=== PATIENT | female | born 1950 | race Caucasian/White ===

== ENCOUNTER → 2018-01-14 | Outpatient (CLI) | payer MEDICARE, OTHER ==
[~2018-01-14] MED LIST: ACHD5005 PO; AMIT50TA3 PO; AML5T PO; ARTHRITIS MED; ASCO100083 PO; ASPI81TA16 PO; ATEN100T88 PO; ATEN50TA; CALC-697 PO; CARV25TA PO; CEPH500C PO; CYCL10TA9 PO; DESO60OI10 TP; DIVA-20; EZET1TAB44 PO; FLT05NA16 NSEACH; GABA100T; GABA300T PO; GARLIC PO; HYDR50TA3 PO; Hydrocodone Bit/Acetaminophen PO; INSU100I16 SQ; INSU100I5 SQ; LOSA1TAB15; LOVA40TA2; LUTE1CAP4 PO; MELO-198 PO; METF-380 PO; METHO; METHOTREXATE PO; MULT-1029 PO; OMEG1CAP51 PO; POLY119P PO; RABE20TA PO; UBID1CAP51 PO; VITA1CAP59 PO; VITA400T9 PO
--- NOTE | 2018-01-14 12:14 | Diagnostic Imaging Report ---
PROCEDURE: MR imaging cervical spine without contrast. TECHNIQUE: Multiplanar, multisequence MR imaging of the cervical spine was performed without contrast. INDICATION: Chronic neck pain. COMPARISON: There are no prior studies available for comparison. FINDINGS: The reconstructed T2 sagittal images show slight reversal of the normal lordosis of the cervical spine. This may be secondary to muscle spasm and/or positioning. There is also desiccation of the disc at every level, and there is narrowing of the disc spaces at C4-5, C5-6, and C6-7 as well as C7-T1. At the C5-6 level, there is a broad-based disc bulge which compresses the ventral aspect of the thecal sac and narrows the AP diameter to approximately 6.3 mm. There is also narrowing of the neural foramen bilaterally at this level, particularly on the left. There is a disc bulge centrally at C4-5, and this results in narrowing of the AP diameter of the thecal sac to approximately 9.8 mm. There is neural foraminal narrowing at this level as well, particularly on the right. At the C6-7 level, there is also a broad-based disc bulge which results in narrowing of the AP diameter of the thecal sac to 9.6 mm. There is mild narrowing of the neural foramen bilaterally at this level. At C7-T1, there is a disc protrusion centrally which flattens the ventral aspect of the thecal sac and narrows the AP diameter to 9.6 mm. There is also narrowing of the neural foramen bilaterally at this level, and there may be encroachment of both exiting nerve roots, particularly left nerve root. At the C3-4 level, there is a disc bulge eccentric to the left. The AP diameter of the thecal sac is narrowed to 9.0 mm. There does not appear to be any significant neural foraminal narrowing at this level. The C2-3 level is unremarkable for spinal stenosis or nerve root encroachment. There is no abnormal signal arising from the cord or the vertebral bodies to indicate an acute abnormality. There is no sign of a paraspinal mass. IMPRESSION: 1. There is degenerative disc and bony disease throughout the cervical spine. The C5-6 level is the most severely affected as there is spinal stenosis and bilateral neural foraminal narrowing, particularly on the left. There is also borderline stenosis at C7-T1 with narrowing of the neural foramen bilaterally. There may also be encroachment of both exiting nerve roots at this level. 2. There is no sign of an acute bony abnormality or of a cord lesion. Dictated by: Dictated on workstation # [id number]
--- NOTE | 2018-01-14 12:25 | Diagnostic Imaging Report ---
PROCEDURE: MRI lumbar spine. TECHNIQUE: Multiplanar, multisequence MRI of the lumbar spine was performed without contrast. INDICATION: Chronic low back pain. FINDINGS: The previous MRI lumbar spine exam performed on 08/16/2015 noted degenerative disc, ligamentous, and bony disease at L3-4 and L4-5. On this exam, the central stenosis at the L3-4 level does not appear to have progressed significantly. The AP diameter still measures approximately 7.6 mm. However, there does seem to be somewhat greater narrowing of the neural foramen on the left at this level, and I am concerned that there is encroachment of the exiting left nerve root. The degenerative disc, ligamentous, and bony disease at the L4-5 level has also progressed. The AP diameter of the thecal sac is narrowed to 6.7 mm as opposed to 7.2 mm previously. There is also greater narrowing of the neural foramen on the right at this level, and there may well be encroachment of the exiting right nerve root at L4-5. The remainder of the lumbar spine has not changed significantly when compared to the prior study. There is no new area of spinal stenosis or nerve root encroachment identified. There is no abnormal signal arising from the cord or the vertebral bodies to indicate an acute abnormality. There is no sign of a paraspinal mass. IMPRESSION: 1. The degenerative disc, ligamentous, and bony disease at L3-4 and L4-5 has progressed somewhat since the prior exam, particularly at L4-5. There is greater central stenosis at the L4-5 level, and there is also greater narrowing of the neural foramen on the right at L4-5 and on the left at L3-4. 2. The remainder of the lumbar spine is similar in appearance to the prior study. 3. There is no abnormal signal arising from the cord or the vertebral bodies to suggest an acute abnormality. Dictated by: Dictated on workstation # [id number]
== END ==
LOC: RAD 10:02
PROVIDERS: ATTEND Nurse Practitioner Community Health
DX: M48.061 Spinal stenosis, lumbar region without neurogenic claudication (principal); M89.9 Disorder of bone, unspecified; M46.06 Spinal enthesopathy, lumbar region; M99.73 Connective tissue and disc stenosis of intervertebral foramina of lumbar region; M51.16 Intervertebral disc disorders with radiculopathy, lumbar region; M50.122 Cervical disc disorder at C5-C6 level with radiculopathy; M48.02 Spinal stenosis, cervical region; M99.71 Connective tissue and disc stenosis of intervertebral foramina of cervical region
CPT/HCPCS: 72141; 72148

== ENCOUNTER 2018-02-13 03:38 | Inpatient (IN) | payer MEDICARE, OTHER ==
[~2018-02-13] VITALS: Ht 160 cm; Wt 56.2 kg
[2018-02-13] MEDS ORDERED: LACTATED RINGERS 1,000 ML IV ONE (03:44)
--- OUTSIDE RECORDS SUMMARY | 2018-02-13 03:45 | XMS REPORT ---
Author Author NADIYA CARMONA Organization [facility] Address [address] [place] [address] Care Team Providers Care Tour Sales Representative Name Role Phone NADIYA CARMONA Unavailable PROBLEMS Type Condition ICD9-CM Code [id number] Code Onset Dates Condition Status SNOMED Code Problem Asthma J45.909 Active 055520240 Problem Reactive depression F32.9 Active 60000470 Problem Secondary hypertension I15.9 Active 06572805 Problem Open bite of left hand, initial encounter S61.452A Active 741665104 Problem Bitten by cat, initial encounter W55.01XA Active 703801351 Problem Moderate persistent asthma with exacerbation J45.41 Active 562107534 Problem Bronchitis J40 Active 49142559 Problem Simple chronic bronchitis J41.0 Active 09154028 Problem Recurrent major depressive disorder, in full remission F33.42 Active 082218724 Problem Renal failure N19 Active 10642787 Problem Joint pain of left hip on movement M25.552 Active 656408779 Problem Hypercholesterolemia E78.00 Active 85735607 Problem Environmental allergies Z91.09 Active 807783457 Problem PVD (peripheral vascular disease) I73.9 Active 577808578 Problem Diabetes mellitus E11.9 Active 08656375 Problem Proteinuria R80.9 Active 81590237 Problem Insomnia G47.00 Active 791639576 Problem Neuropathy G62.9 Active 868920387 Problem GERD (gastroesophageal reflux disease) K21.9 Active 849764891 ALLERGIES Substance Reaction Event Type Date Status Stadol Unknown Drug Allergy Dec, Active Glucotrol Unknown Drug Allergy Dec, Active ENCOUNTERS Encounter Location Date Diagnosis [facility] [id number] [address] Jan, [facility] [address] [facility] [id number] [address] Dec, [facility] [address] [address] Dec, Diabetes mellitus E11.9 ; Cervical neuritis M54.12 and Lumbar neuritis M54.16 [place] [address] [address]- [address] Dec, [place] [address] [address]- [address] Dec, Diabetes mellitus E11.9 [place] [address] 63206- 7794 Nov, Diabetes mellitus E11.9 [facility] [address] [address] Oct, Dermatitis due to plants, including poison chris, sumac, and oak L25.5 [place] [address] [address]195- 3961 Sep, Diabetes mellitus E11.9 and Medication management Z79.899 [place] [address] 28294- 5132 Sep, [place] [address] 7[address]- 4096 August, Neuropathy G62.9 [facility] [place] [address] [address] August, Open bite of left hand, initial encounter S61.452A ; Encounter for immunization Z23 and Bitten by cat, initial encounter W55.01XA [place] [address] [address]- 5550 Jul, Environmental allergies Z91.09 [place] [address] 74867- 8917 Jun, [place] [address] 57862- 4080 Jun, Simple chronic bronchitis J41.0 ; PVD (peripheral vascular disease) I73.9 and Recurrent major depressive disorder, in full remission F33.42 [facility] [address] [id number] 13 Jun, 2017 Dental examination Z01.20 [facility] [id number] [place] [address]137 [address]2271 Jun, Moderate persistent asthma with exacerbation J45.41 [facility] [id number] [place] [address] 88700- 6617 May, Neuropathy G62.9 and Diabetes mellitus E11.9 [facility] [address] [address]- 7710 Apr, [facility] [address] [address] Apr, Cough R05 [facility] [address] [address]- 7082 Feb, [facility] [address] 41035- 8380 Feb, [facility] [id number] [place] [address] 29799- 9412 Feb, Diabetes mellitus E11.9 ; Neuropathy G62.9 ; Joint pain of left hip on movement M25.552 and Encounter for immunization Z23 [facility] [id number] [place] [address] 46101- 9237 Feb, [facility] [address] 89789- 2651 Feb, Diabetes mellitus E11.9 [facility] [address] 91746- 2374 Feb, [facility] [address] 37573- 4713 Jan, [facility] [address] 63665- 6833 Jan, Secondary hypertension I15.9 [facility] [id number] [address] Dec, Diabetes mellitus E11.9 [facility] [address] [address] Nov, Encounter for dental examination Z01.20 [facility] [address], [place] [address] Oct, Allergic contact dermatitis due to plants, except food L23.7 [facility] [id number] [place] [address] 64429- 8134 Oct, [facility] [id number] [place] [address] 71721- 2502 Oct, Diabetes mellitus E11.9 ; PVD (peripheral vascular disease) I73.9 ; Neuropathy G62.9 ; GERD (gastroesophageal reflux disease) K21.9 ; Insomnia G47.00 ; Environmental allergies Z91.09 ; Secondary hypertension I15.9 ; Reactive depression F32.9 ; Hypercholesterolemia E78.00 and Joint pain of left hip on movement M25.552 [facility] [id number] [place] [address] 33745- 7334 Sep, Diabetes mellitus E11.9 [facility] [id number] [place] [address] 74204- 8389 Sep, Diabetes mellitus E11.9 [facility] [id number] [place] [address] 76871- 0143 Sep, Diabetes mellitus E11.9 [facility] [address] [place] [address] 08296- 3379 Sep, Neuropathy G62.9 [facility] [id number] [place] [address] 58120- 8576 August, [facility] [id number] [place] [address] 54024- 5435 Jul, [facility] [id number] [place] [address] 78609- 7755 Jun, [facility] [address] 72369- 1619 Jun, Diabetes mellitus E11.9 ; PVD (peripheral vascular disease) I73.9 ; Neuropathy G62.9 ; Joint pain of left hip on movement M25.552 ; Renal failure N19 ; Asthma J45.909 ; Reactive depression F32.9 ; Pure hypercholesterolemia, unspecified E78.00 and Insomnia G47.00 [place] [address] 87298- 6381 Jun, Joint pain of left hip on movement M25.552 and Diabetes mellitus E11.9 [place] [address] 13245- 4768 Jun, [facility] [address] [address] May, Cough R05 and Bronchitis J40 [place] [address] 52826- 9115 May, [place] [address] 76126- 2877 May, [place] [address] 03456- 9025 May, Asthma J45.909 and Bronchitis J40 [place] [address] 88186- 8060 07 May, 2016 [place] [address] 47767- 2718 May, Bronchitis J40 [facility] [address] 11417- 8344 06 May, 2016 [place] [address] 46711- 9273 Apr, Diabetes mellitus E11.9 ; PVD (peripheral vascular disease) I73.9 ; GERD (gastroesophageal reflux disease) K21.9 ; Asthma J45.909 ; Insomnia G47.00 ; Environmental allergies Z91.09 ; Secondary hypertension I15.9 ; Joint pain of left hip on movement M25.552 ; Hypercholesterolemia E78.0 and Reactive depression F32.9 [place] [address] 43555- 8107 Mar, Diabetes mellitus E11.9 ; PVD (peripheral vascular disease) I73.9 and Hypercholesterolemia E78.0 [place] [address] 27018- 9668 Mar, Diabetes mellitus E11.9 and Hypercholesterolemia E78.0 [place] [address] 41095- 2615 Mar, [place] [address] 56386- 9427 Feb, [place] [address] 29622- 3203 Feb, [place] [address] 30009- 2471 Feb, [place] [address] 74664- 8844 Jan, Encounter for immunization Z23 [place] [address] 17667- 6843 Jan, [place] [address] 39216- 5588 Dec, [place] [address] 68918- 5653 Dec, Diabetes mellitus E11.9 ; PVD (peripheral vascular disease) I73.9 ; GERD (gastroesophageal reflux disease) K21.9 ; Insomnia G47.00 ; Joint pain of left hip on movement M25.552 ; Asthma J45.909 ; Environmental allergies Z91.09 ; Hypercholesterolemia E78.0 ; Essential hypertension I10 and Neuropathy G62.9 [place] [address], [place] [address] Nov, [place] [id number] [place] [address] 92967- 9282 Nov, [facility] [id number] [place] [address] 25048- 4320 Oct, PVD (peripheral vascular disease) I73.9 and Diabetes mellitus E11.9 [place] [id number] [place] [address] 00189- 7574 Sep, Diabetes mellitus E11.9 ; PVD (peripheral vascular disease) I73.9 ; Neuropathy G62.9 ; Joint pain of left hip on movement M25.552 ; GERD ( gastroesophageal reflux disease) K21.9 ; Asthma J45.909 ; Insomnia G47.00 ; Secondary hypertension I15.9 and Hypercholesteremia E78.0 [place] [id number] [place] [address] 23282- 6478 August, [place] [id number] [place] [address] 13896- 8294 August, Neuropathy G62.9 [place] [id number] [place] [address] 05711- 3271 August, Neuropathy G62.9 [place] [id number] [place] [address] 76409- 6704 Jun, Diabetes mellitus E11.9 ; Joint pain of left hip on movement M25.552 ; PVD (peripheral vascular disease) I73.9 ; Neuropathy G62.9 ; GERD (gastroesophageal reflux disease) K21.9 ; Asthma J45.909 ; Insomnia G47.00 ; Environmental allergies Z91.09 ; HTN (hypertension) I10 and Hypercholesteremia E78.0 [place] [address] [place] [address] 64740- 0048 Jun, [place] [id number] [place] [address] 67971- 3709 Jun, [facility] [id number] [place] [address] 15311- 2216 Jun, [facility] [id number] [place] [address] 18893- 8207 Apr, [facility] [id number] [place] [address] 59428- 4385 Apr, [facility] [address] 76893- 8310 Apr, Sinusitis J32.9 [facility] [address] 16230- 1698 Apr, Neuropathy G62.9 [facility] [address] 21929- 8957 Mar, [facility] [address] 12241- 4257 Mar, [facility] [id number] [place] [address] 80464- 1186 Mar, Diabetes mellitus E11.9 ; PVD (peripheral vascular disease) I73.9 ; Neuropathy G62.9 ; GERD (gastroesophageal reflux disease) K21.9 ; Renal failure N19 ; Asthma J45.909 ; Insomnia G47.00 ; Environmental allergies Z91.09 ; Sinusitis J32.9 ; Cough R05 ; Edema R60.9 ; HTN (hypertension) I10 and Hypercholesterolemia E78.0 [facility] [id number] [place] [address] 83609 -6405 Mar, Dysuria R30.0 ; Vomiting, unspecified R11.10 ; Benign essential hypertension I10 and Dizziness R42 [facility] [id number] [place] [address] 70287- 8401 Mar, [facility] [address] 01724- 1795 Mar, [facility] [address] 52957- 9310 Feb, [facility] [address], [place] [address] 1940 Feb, [facility] [address] [place] [address] 85828- 3526 Feb, [facility] [address] [place] [address] 20185- 4618 Feb, [facility] [id number] [place] [address] 23340- 8658 Feb, Joint pain of left hip on movement M25.552 ; Lumbago M54.5 and UTI (urinary tract infection) N39.0 [facility] [address] [place] [address] 16865- 3011 Feb, [facility] [address] [place] [address] 63356- 6278 Feb, [facility] [address] [place] [address] 55036- 2688 Jan, [facility] [address] [place] [address] 27068- 8903 Jan, [facility] [address] [place] [address] 47710- 2975 Jan, [facility] [address], [place] [address]- 6431 Jan, [facility] [address] [place] [address] 43697- 4227 Jan, 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 [facility] [address] [place] [address] 68472- 2431 Dec, Hypertension 401.9 and Diabetes 250.00 [facility] [address], [place] [address] Dec, Diabetes 250.00 ; Influenza vaccine administered V04.81 ; Unspecified peripheral vascular disease 443.9 ; Issue of repeat prescriptions V68.1 ; Unspecified hereditary and idiopathic peripheral neuropathy 356.9 ; Insomnia, unspecified 780.52 ; Hypercholesteremia 272.0 ; Pain in joint, site unspecified 719.40 ; Dizziness 780.4 and PCV-13 (PREVNAR) DX V03.82 [facility] [id number] [place] [address] 26319- 7391 Dec, [facility] [address] 09855- 1647 Dec, [facility] [address] 86078- 0362 Dec, [facility] [address] 83211- 4168 Dec, [facility] [address] 67956- 0526 Dec, [facility] [address] 46666- 8095 Dec, [facility] [id number] [place] [address] 74273- 7095 Nov, [facility] [id number] [place] [address] 53788- 6113 Nov, Environmental allergies V15.09 ; Sacroiliitis, not elsewhere classified 720.2 and Cough 786.2 [facility] [id number] [place] [address] 17891- 8203 Oct, [facility] [id number] [place] [address] 38146- 3674 Oct, [facility] [address] 30340- 9775 Oct, [facility] [id number] [place] [address] 54867- 3391 Sep, [facility] [address] 17778- 4881 Sep, [facility] [id number], [place] [address]- 0156 Sep, Dysuria 788.1 and Diabetes with other specified manifestations, type II or unspecified type, not stated as uncontrolled 250.80 [facility] [address] [place] [address] 98538- 3545 Sep, [facility] [id number] [place] [address] 37192- 4971 Sep, Diabetes with other specified manifestations, type II or unspecified type, not stated as uncontrolled 250.80 [place] [id number] [place] [address] 98199- 9133 Sep, DM w/o complication type II 250.00 ; Unspecified peripheral vascular disease 443.9 ; Pain in joint, pelvic region and thigh 719.45 ; Asthma , unspecified, unspecified status 493.90 ; Hypercholesteremia 272.0 ; Fatigue 780.79 ; UTI (lower urinary tract infection) 599.0 and Essential hypertension 401.9 [place] [address] [place] [address] 51075- 7482 Sep, [facility] [id number] [place] [address] 24007- 6361 Sep, [facility] [address] [place] [address] 44845- 3744 Sep, [facility] [address] [place] [address] 76683- 7927 August, [facility] [address] [place] [address] 63329- 6357 August, [facility] [id number] [place] [address] 22740- 8156 August, Diabetes with other specified manifestations, type II or unspecified type, not stated as uncontrolled 250.80 [facility] [address] [place] [address] 24042- 5199 28 Apr, 2015 Peripheral vascular disease 443.9 [facility] [place] [facility] [address] [id number] [place] [address]- 3517 14 Jul, 2014 [facility] [place] [facility] [address] [id number] [place] [address]- 0784 Jul, [facility] [place] [facility] [address] [id number] [place] [address]- 7801 27 Jun, 2014 [facility] [place] [facility] [address] [id number] [place] [address]- 3237 27 Jun, 2014 [facility] [place] [facility] [address] [id number] [place] [address]- 2132 14 Jun, 2014 [facility] [place] [facility] [address] [id number] [place] [address]- 3619 Jun, [facility] [place] [facility] [address] [id number] [place] [address]- 8672 Jun, [facility] [place] [facility] [address] [id number] [place] [address]- 4444 Jun, [facility] [place] [facility] [address] [id number] [place] [address]- 8393 Jun, [facility] [place] [facility] [address] [id number] [place] [address]- 8091 Jun, [facility] [place] [facility] [address] [id number] [place] [address]- 4447 Jun, [facility] [place] [facility] [address] [id number] [place] [address]- 5804 May, [facility] [place] [facility] [address] [id number] [place] [address]- 0106 May, [facility] [place] [facility] [address] [id number] [place] [address]- 1175 24 May, 2014 [facility] [place] [facility] [address] [id number] [place] [address]- 2817 May, [facility] [place] [facility] [address] [id number] [place] [address]- 8095 18 May, 2014 [facility] [place] [facility] [address] [id number] [place] [address]- 2226 May, 2014 [facility] [place] [facility] [address] [id number] [place] [address]- 8666 17 May, 2014 [facility] [place] [facility] [address] [id number] [place] [address]- 1364 May, 2014 [facility] [place] [facility] [address] [id number] [place] [address]- 9427 May, 2014 [facility] [place] [facility] [address] [id number] [place] [address]- 7389 May, 2014 [facility] [place] [facility] [address] [facility] [id number] [place] [address]- 4332 May, 2014 [facility] [place] [facility] [address] [id number] [place] [address]- 5359 May, 2014 [facility] [place] [facility] [address] [id number] [place] [address]- 0738 May, [facility] [place] [facility] [address] [facility] [id number] [place] [address]- 2784 Apr, [facility] [place] [facility] [address] [id number] [place] [address]- 6456 Apr, [facility] [place] [facility] [address] [id number] [place] [address]- 2542 Apr, [facility] [place] [facility] [address] [id number] [place] [address]- 5713 Apr, [facility] [place] [facility] [address] [id number] [place] [address]- 6649 Apr, [facility] [place] [facility] [address] [id number] [place] [address]- 4469 Apr, [facility] [place] [facility] [address] [id number] [place] [address]- 7183 Apr, [facility] [place] [facility] [address] [id number] [place] [address]- 7308 Apr, [facility] [place] [facility] [address] [id number] [place] [address]- 6769 Mar, [facility] [place] [facility] [address] [id number] [place] [address]- 5130 Mar, [facility] [place] [facility] [address] [id number] [place] [address]- 9162 Mar, [facility] [place] [facility] [address] [id number] [place] [address]- 0164 Mar, [facility] [place] [facility] [address] [id number] [place] [address]- 2891 Mar, [facility] [place] [facility] [address] [id number] [place] [address]- 2841 Mar, [facility] [place] [facility] [address] [id number] [place] [address]- 4613 Mar, [facility] [place] [facility] [address] [id number] [place] [address] Mar, [facility] [place] [facility] [address] [id number] [place] [address] Mar, [facility] [place] [facility] [address] [id number] [place] [address] Mar, [facility] [place] [facility] [address] [id number] [place] [address] Mar, [facility] [place] [facility] [address] [id number] [place] [address]- [address] Mar, [facility] [place] [facility] [address] [id number] [place] [address] Mar, [facility] [place] [facility] [address] [id number] [place] [address]- [address] Mar, [facility] [place] [facility] [address] [id number] [place] [address] Feb, [facility] [place] [facility] [address] [id number] [place] [address] Feb, [facility] [place] [facility] [address] [id number] [place] [address]- [address] Feb, [facility] [place] [facility] [address] [id number] [place] [address]- [address] Feb, [facility] [place] [facility] [address] [id number] [place] [address] Feb, [facility] [place] [facility] [address] [id number] [place] [address]- [address] Feb, [facility] [place] [facility] [address] [id number] [place] [address]- [address] Feb, [facility] [place] [facility] [address] [id number] [place] [address]- [address] Feb, [facility] [place] [facility] [address] [id number] [place] [address]- [address] Feb, [facility] [place] [facility] [address] [id number] [place] [address]- [address] Feb, [facility] [place] [facility] [address] [id number] [place] [address]- [address] Feb, [facility] [place] [facility] [address] [id number] [place] [address]- [address] Feb, [facility] [place] [facility] [address] [id number] [place] [address]- [address] Feb, [facility] [place] [facility] [address] [id number] [place] [address] Feb, [facility] [place] [facility] [address] [id number] [place] [address]- [address] Feb, [facility] [place] [facility] [address] [id number] [place] [address]- [address] Feb, [facility] [place] [facility] [address] [id number] [place] [address]- [address] Jan, [facility] [place] [facility] [address] [id number] [place] [address]- [address] Jan, [facility] [place] [facility] [address] [id number] [place] [address]- [address] Jan, [facility] [place] [facility] [address] [id number] [place] [address]- [address] Jan, [facility] [place] [facility] [address] [id number] [place] [address]- [address] Jan, [facility] [place] [facility] [address] [id number] [place] [address]- [address] Jan, [facility] [place] [facility] [address] [id number] [place] [address] Jan, [facility] [place] [facility] [address] [id number] [place] [address]- [address] Jan, [facility] [place] [facility] [address] [id number] [place] [address]- [address] Dec, [facility] [place] [facility] [address] [id number] [place] [address] Dec, [facility] [place] [facility] [address] [id number] [place] [address] 3299 Nov, [facility] [place] [facility] [address] [id number] [place] [address] 0218 Nov, [facility] [place] [facility] [address] [id number] [place] [address] 0259 Nov, [facility] [place] [facility] [address] [id number] [place] [address] 2401 Nov, [facility] [place] [facility] [address] [id number] [place] [address] Nov, [facility] [place] [facility] [address] [id number] [place] [address] 8348 Nov, [facility] [place] [facility] [address] [id number] [place] [address] 7670 Oct, [facility] [place] [facility] [address] [id number] [place] [address] Oct, [facility] [place] [facility] [address] [id number] [place] [address]- 6314 Oct, [facility] [place] [facility] [address] [id number] [place] [address] 8939 Oct, [facility] [place] [facility] [address] [id number] [place] [address]- 9261 Sep, [facility] [place] [facility] [address] [id number] [place] [address]- 5016 Sep, [facility] [place] [facility] [address] [id number] [place] [address]- 0050 Sep, [facility] [place] [facility] [address] [id number] [place] [address]- 7999 Sep, [facility] [place] [facility] [address] [id number] [place] [address]- 7168 Sep, [facility] [place] [facility] [address] [id number] [place] [address]- 5756 Sep, [facility] [place] [facility] [address] [id number] [place] [address]- 6317 August, [facility] [place] [facility] [address] [id number] [place] [address]- 2526 August, [facility] [place] [facility] [address] [id number] [place] [address]- 7908 August, [facility] [place] [facility] [address] [id number] [place] [address]- 0056 August, [facility] [place] [facility] [address] [id number] [place] [address]- 0817 August, [facility] [place] [facility] [address] [id number] [place] [address] 1737 August, [facility] [address] [id number] [place] [address]- 6526 August, [facility] [place] [facility] [address] [id number] [place] [address]- 4828 August, [facility] [address] [id number] [place] [address]- 2104 August, [facility] [place] [facility] [address] [id number] [place] [address] 8098 August, [facility] [place] [facility] [address] [id number] [place] [address]- 3603 August, [facility] [place] [facility] [address] [id number] [place] [address]- 8298 August, [facility] [place] [facility] [address] [id number] [place] [address]- 2147 Jul, [facility] [address] [id number] [place] [address]- 1337 Jul, [facility] [place] [facility] [address] [id number] [place] [address]- 6582 Jul, [facility] [place] [facility] [address] [id number] [place] [address]- 8480 Jul, [facility] [place] [facility] [address] [id number] [place] [address]- 6694 Jul, [facility] [place] [facility] [address] [id number] [place] [address]- 7625 Jul, [facility] [place] [facility] [address] [id number] [place] [address]- 7683 Jul, [facility] [place] [facility] [address] [id number] [place] [address] Jul, [facility] [place] [facility] [address] [id number] [place] [address]- 5447 Jul, [facility] [place] [facility] [address] [id number] [place] [address]- 4550 Jul, [facility] [place] [facility] [address] [id number] [place] [address]- 3883 Jul, [facility] [place] [facility] [address] [id number] [place] [address]- 6886 Jun, [facility] [place] [facility] [address] [id number] [place] [address]- 0389 Jun, [facility] [place] [facility] [address] [id number] [place] [address]- 5014 Jun, [facility] [place] [facility] [address] [id number] [place] [address]- 6635 Jun, [facility] [place] [facility] [address] [id number] [place] [address]- 6818 Jun, [facility] [place] [facility] [address] [id number] [place] [address]- 6606 Jun, [facility] [place] [facility] [address] [id number] [place] [address]- 6075 Jun, [facility] [place] [facility] [address] [id number] [place] [address]- 5461 Jun, [facility] [place] [facility] [address] [id number] [place] [address]- 0129 Jun, [facility] [place] [facility] [address] [id number] [place] [address]- 7508 May, [facility] [place] [facility] [address] [id number] [place] [address]- 6875 May, [facility] [place] [facility] [address] [id number] [place] [address]- 8448 May, [facility] [place] [facility] [address] [id number] [place] [address]- 7326 Apr, [facility] [place] [facility] [address] [id number] [place] [address]- 4347 Apr, [facility] [place] [facility] [address] [id number] [place] [address]- 4408 Apr, [facility] [place] [facility] [address] [id number] [place] [address]- 5395 Apr, [facility] [place] [facility] [address] [id number] [place] [address]- 8396 Apr, [facility] [place] [facility] [address] [id number] [place] [address]- 4018 Apr, [facility] [place] [facility] [address] [id number] [place] [address]- 7666 Apr, [facility] [place] [facility] [address] [id number] [place] [address]- 9834 Apr, [facility] [place] [facility] [address] [id number] [place] [address]- 1557 Mar, [facility] [place] [facility] [address] [id number] [place] [address]- 6671 Mar, [facility] [place] [facility] [address] [id number] [place] [address]- 4319 Feb, [facility] [place] [facility] [address] [facility] [id number] [place] [address]- 1532 Feb, [facility] [place] [facility] [address] [id number] [place] [address]- 7372 Jan, [facility] [place] [facility] [address] [id number] [place] [address]- 7223 31 Jan, 2013 [facility] [place] [facility] [address] [id number] [place] [address]- 2911 Jan, [facility] [place] [facility] [address] [id number] [place] [address]- 5287 Jan, [facility] [place] [facility] [address] [id number] [place] [address]- 9246 24 Jan, 2013 [facility] [place] [facility] [address] [id number] [place] [address]- 5006 24 Jan, 2012 [facility] [place] [facility] [address] [id number] [place] [address]- 7839 Jan, 2012 [facility] [place] [facility] [address] [id number] [place] [address]- 4944 Jan, 2012 [facility] [place] [facility] [address] [id number] [place] [address]- 0124 17 Jan, 2012 [facility] [place] [facility] [address] [id number] [place] [address]- 8313 17 Jan, 2012 [facility] [place] [facility] [address] [id number] [place] [address]- 0454 14 Jan, 2012 [facility] [place] [facility] [address] [id number] [place] [address]- 8252 14 Jan, 2012 [facility] [place] [facility] [address] [id number] [place] [address]- 2933 10 Jan, 2012 [facility] [place] [facility] [address] [id number] [place] [address]- 2752 10 Jan, 2012 [facility] [place] [facility] [address] [id number] [place] [address]- 9781 10 Jan, 2012 [facility] [place] [facility] [address] [id number] [place] [address]- 3238 10 Jan, 2012 [facility] [place] [facility] [address] [id number], [place] [address]- 6769 09 Jan, 2012 [facility] [place] [facility] [address] [id number] [place] [address]- 3213 09 Jan, 2012 [facility] [place] [facility] [address] [id number] [place] [address]- 3449 08 Jan, 2012 [facility] [place] [facility] [address] [id number], [place] [address]- 0[address] 07 Jan, 2012 [facility] [place] [facility] [address] [id number], [place] [address]- 9836 Jan, [facility] [place] [facility] [address] [id number] [place] [address]- 5427 Jan, [facility] [place] [facility] [address] [id number] [place] [address]- 9685 Jan, [facility] [place] [facility] [address] [id number] [place] [address]- 6066 Dec, [facility] [place] [facility] [address] [id number] [place] [address]- 0030 16 Dec, 2012 [facility] [place] [facility] [address] [id number] [place] [address]- 0541 Nov, [facility] [place] [facility] [address] [id number] [place] [address]- 5623 Oct, [facility] [place] [facility] [address] [id number] [place] [address]- 5179 Oct, [facility] [place] [facility] [address] [id number] [place] [address]- 7734 Oct, [facility] [place] [facility] [address] [id number] [place] [address]- 8002 Oct, [facility] [place] [facility] [address] [id number] [place] [address]- 2066 Oct, [facility] [place] [facility] [address] [id number] [place] [address]- 7869 Oct, [facility] [place] [facility] [address] [id number] [place] [address]- 4877 Sep, [facility] [place] [facility] [address] [id number] [place] [address]- 0444 Sep, [facility] [place] [facility] [address] [id number] [place] [address]139 Sep, [facility] [place] [facility] [address] [id number] [place] [address]- 9056 Jul, [facility] [place] [facility] [address] [id number] [place] [address]- 3296 Jul, [facility] [address] [id number] [place] [address]- 1699 Jul, [facility] [address] [id number] [place] [address]- 2926 Jun, [facility] [address] [id number] [place] [address]- 2326 Jun, [facility] [address] [id number] [place] [address]- 5775 Jun, [facility] [address] [id number] [place] [address]- 7458 Jun, [facility] [address] [id number] [place] [address]- 1356 Jun, [facility] [address] [id number] [place] [address]- 1400 Jun, [facility] [address] [id number] [place] [address]- 9668 May, [facility] [address] [id number] [place] [address]- 7106 May, [facility] [address] [id number] [place] [address]- 5002 Apr, [facility] [address] [id number] [place] [address]- 4238 Apr, [facility] [address] [id number] [place] [address]- 5295 Apr, [facility] [address] [id number] [place] [address]- 5496 Apr, [facility] [address] [id number] [place] [address]- 2546 Apr, [facility] [address] [id number] [place] [address]- 2496 31 Mar, 2012 [facility] [place] [facility] [address] [id number] [place] [address]- 8985 31 Mar, 2012 [facility] [place] [facility] [address] [id number] [place] [address]- 8108 Mar, [facility] [place] [facility] [address] [id number] [place] [address]- 1343 Mar, [facility] [place] [facility] [address] [id number] [place] [address]- 9957 14 Mar, 2012 [facility] [place] [facility] [address] [id number] [place] [address]- 9611 14 Mar, 2012 [facility] [place] [facility] [address] [id number] [place] [address]- 2372 Mar, [facility] [place] [facility] [address] [id number] [place] [address]- 1513 Mar, [facility] [place] [facility] [address] [id number] [place] [address]- 2464 05 Mar, 2012 [facility] [place] [facility] [address] [id number] [place] [address]- 2935 05 Mar, 2012 [facility] [place] [facility] [address] [id number] [place] [address]- 5458 30 Feb, 2012 [facility] [place] [facility] [address] [id number] [place] [address]- 1839 30 Feb, 2012 [facility] [place] [facility] [address] [id number], [place] [address]- 6883 Feb, [facility] [place] [facility] [address] [id number] [place] [address]- 4496 Feb, [facility] [place] [facility] [address] [id number] [place] [address]- 6195 Feb, [facility] [place] [facility] [address] [id number] [place] [address]- 6217 Feb, [facility] [place] [facility] [address] [id number] [place] [address]- 4388 Feb, [facility] [place] [facility] [address] [id number] [place] [address]- 9463 Feb, [facility] [place] [facility] [address] [id number] [place] [address]- 8556 Feb, [facility] [place] [facility] [address] [facility] [id number] [place] [address]- 4823 Feb, [facility] [place] [facility] [address] [id number] [place] [address]- 7132 Jan, [facility] [place] [facility] [address] [id number] [place] [address]- 7326 Jan, [facility] [place] [facility] [address] [id number] [place] [address]- 2301 Jan, [facility] [place] [facility] [address] [facility] [id number] [place] [address]- 2261 Jan, [facility] [place] [facility] [address] [id number] [place] [address]- 3506 28 Sep, 2011 [facility] [place] [facility] [address] [id number] [place] [address]- 7819 25 Sep2011 [facility] [place] [facility] [address] [facility] [id number] [place] [address]- 7922 18 Sep2011 [facility] [place] [facility] [address] [id number] [place] [address]- 8836 18 Sep, 2011 [facility] [place] [facility] [address] [id number], [place] [address]- 2541 17 Sep, 2011 [facility] [place] [facility] [address] [id number] [place] [address]- 5308 14 Sep, 2011 [facility] [place] [facility] [address] [facility] [id number] [place] [address]- 2546 13 Sep, 2011 [facility] [place] [facility] [address] [id number], [place] [address]- 3203 13 Dec, 2011 [facility] [place] [facility] [address] [id number] [place] [address]- 0111 Dec, [facility] [place] [facility] [address] [id number] [place] [address]- 6886 Nov, [facility] [place] [facility] [address] [id number] [place] [address]- 7732 Nov, [facility] [place] [facility] [address] [id number] [place] [address]- 1079 Nov, [facility] [place] [facility] [address] [id number] [place] [address]- 9908 Nov, [facility] [place] [facility] [address] [id number] [place] [address]- 8017 Sep, [facility] [place] [facility] [address] [id number] [place] [address]- 4982 Sep, [facility] [place] [facility] [address] [id number] [place] [address]- 0857 Sep, [facility] [place] [facility] [address] [id number] [place] [address]- 8696 August, [facility] [place] [facility] [address] [id number] [place] [address]- 6419 August, [facility] [place] [facility] [address] [id number] [place] [address]- 4142 August, [facility] [place] [facility] [address] [id number] [place] [address]- 3607 August, [facility] [place] [facility] [address] [id number] [place] [address]- 3185 August, [facility] [place] [facility] [address] [id number] [place] [address]- 8978 August, [facility] [place] [facility] [address] [id number] [place] [address]- 1420 August, [facility] [place] [facility] [address] [id number] [place] [address]- 9826 August, [facility] [place] [facility] [address] [id number] [place] [address]- 9206 August, [facility] [place] [facility] [address] [id number] [place] [address]- 4672 Jul, [facility] [place] [facility] [address] [id number] [place] [address]- 1714 Jun, [facility] [place] [facility] [address] [id number] [place] [address]- 6227 16 Jun, 2011 [facility] [place] [facility] [address] [id number] [place] [address]- 4499 Jun, [facility] [place] [facility] [address] [facility] [id number] [place] [address]- 5926 Jun, [facility] [place] [facility] [address] [id number] [place] [address]- 2940 Jun, [facility] [place] [facility] [address] [id number] [place] [address]- 6310 Jun, [facility] [place] [facility] [address] [id number] [place] [address]- 2827 Jun, [facility] [place] [facility] [address] [facility] [id number] [place] [address]- 1513 Jun, [facility] [place] [facility] [address] [id number] [place] [address]- 2409 May, [facility] [place] [facility] [address] [id number] [place] [address]- 3275 May, [facility] [place] [facility] [address] [id number] [place] [address]- 6800 May, [facility] [place] [facility] [address] [id number] [place] [address]- 8933 May, [facility] [place] [facility] [address] [id number] [place] [address] May, [facility] [place] [facility] [address] [id number] [place] [address] 16 May, 2011 [facility] [place] [facility] [address] [id number] [place] [address]65 14 May, 2011 [facility] [place] [facility] [address] [id number] [place] [address] 19 Apr, 2011 [facility] [place] [facility] [address] [id number] [place] [address] 16 Apr, 2011 [facility] [place] [facility] [address] [id number] [place] [address] 13 Apr, 2011 [facility] [place] [facility] [address] [id number] [place] [address] Apr, [facility] [place] [facility] [address] [id number] [place] [address] Apr, [facility] [address] [id number] [place] [address] Apr, [facility] [place] [facility] [address] [id number] [place] [address] Apr, [facility] [address] [id number] [place] [address] Apr, [facility] [place] [facility] [address] [id number] [place] [address] 29 Mar, 2011 [facility] [address] [id number] [place] [address]682 Mar, [facility] [place] [facility] [address] [id number] [place] [address]246 28 Feb, 2011 [facility] [place] [facility] [address] [id number] [place] [address] Feb, [facility] [place] [facility] [address] [id number] [place] [address]671 17 Feb, 2011 [facility] [place] [facility] [address] [id number] [place] [address] 16 Feb, 2011 [facility] [place] [facility] [address] [id number] [place] [address] 16 Feb, 2011 [facility] [place] [facility] [address] [id number] [place] [address]47 24 Jan, 2011 [facility] [place] [facility] [address] [id number] [place] [address] 12 Nov, 2010 [facility] [place] [facility] [address] [id number] [place] [address] 14 Sep, 2010 [facility] [place] [facility] [address] [id number] [place] [address] August, [facility] [place] [facility] [address] [id number] [place] [address] Jun, [facility] [place] [facility] [address] [id number] [place] [address] 14 May, 2010 [facility] [place] [facility] [address] [id number] [place] [address] Apr, [facility] [place] [facility] [address] [id number] [place] [address] 2728 22 Mar, 2010 [facility] [place] [facility] [address] [id number] [place] [address] 5694 14 Mar, 2010 [facility] [place] [facility] [address] [id number] [place] [address] 14 Mar, 2010 [facility] [place] [facility] [address] [id number] [place] [address]88 12 Feb, 2010 [facility] [place] [facility] [address] [id number] [place] Feb, [facility] [place] [facility] [address] [id number] [place] [address] 12 Jan, 2010 [facility] [place] [facility] [address] [id number] [place] [address]661 11 Jan, 2010 [facility] [place] [facility] [address] [id number] [address] 11 Jan, 2010 [facility] [address] [id number] [address] Oct, [facility] [id number] [place] [address] Oct, [facility] [address] [id number], [place] [address] Apr, [facility] [id number], [place] [address] Mar, [facility] [id number] [address] Mar, [facility] [id number] [place] [address] Jan, [facility] [id number], [place] [address] Dec, IMMUNIZATIONS No Known Immunizations SOCIAL HISTORY Never Assessed REASON FOR VISIT Diabetes -Pepper DAN PLAN OF CARE VITAL SIGNS Height 63 in 2018-01-09 Weight 133 lbs 2018-01-09 Temperature 98.6 degrees Fahrenheit 2018-01-09 Heart Rate 69 bpm 2018-01-09 Respiratory Rate 20 2018-01-09 Oximetry 97 % 2018-01-09 BMI 23.56 kg/m2 2018-01-09 Blood pressure systolic 138 mmHg 2018-01-09 Blood pressure diastolic 80 mmHg 2018-01-09 MEDICATIONS Medication Instructions Dosage Frequency Start Date End Date Duration Status Symbicort 160-4.5 MCG/ACT Inhalation Twice a day 2 puffs 12h 14 Jun, 2017 Active Metformin HCl 1000 MG Orally Twice a day 1 tablet with meals 12h Feb, Active Amitriptyline HCl 150 MG Orally Once a day 1 tablet 24h Feb, Active Celexa 20 mg Orally Once a day 1 tablet 24h Active Percocet 5-325 MG Orally every 6 hrs prn 1 tablet as needed Nov, 28 days Active Vytorin 10-40 MG Orally Once a day 1 tablet 24h Active Mucinex 600 MG Orally every 12 hrs 1 tablet as needed 12h 10 May, 2016 Active Albuterol Sulfate 90 mcg/actuation 2 puffs by Inhalation route every 4-6 hours as neededPRNcough or wheezing August, Active Levemir FlexTouch 100 UNIT/ML INJECT 25 UNITS SUBCUTANEOUSLY TWICE DAILY IN THE MORNING AND IN THE EVENING 30 Active Diclofenac Sodium 50MG DR Orally Three times a day 1 tablet 8h Active Amlodipine Besylate 5MG TAKE ONE TABLET BY MOUTH TWICE DAILY Active Levemir Flexpen 100 UNIT/ML Subcutaneous 2 times a day Inject 25 units in AM and PM 12h Active Atenolol 100MG 1 tablet 24h Active ProAir HFA 108 (90 Base) MCG/ACT Inhalation every 4 hrs 2 puffs as needed for cough, wheeze or SOB 4h 07 May, 2016 30 days Active Gabapentin 300MG Orally 3 times a day 1 capsule by Oral route 3 times per day 8h Active Flonase 50 MCG/ACT Nasally Once a day 1 spray in each nostril 24h Feb, Active Pen [place] 32G X 4 MM subcutaneously 2 times a day use to Inject insulin 12h Feb, 90 days Active Hydrochlorothiazide 50MG 1 tablet 24h Active RESULTS Name Result Date Reference Range A1C (IN HOUSE) 2018-01-09 A1C IN HOUSE 6.0 4.3 - 5.6 % Previous A1c 5.6 Lot [id number] Exp date 06/2019 PROCEDURES Procedure Date Ordered Result Body Site GLYCATED HEMOGLOBIN TEST Jan 09, 2018 [facility] VISIT ESTABLISHED PATIENT Jan 09, 2018 INSTRUCTIONS MEDICATIONS ADMINISTERED No Known Medications MEDICAL (GENERAL) HISTORY Type Description Date Medical History Hypertension Medical History Frequent URIs Medical History Arthritis Medical History Migraines Medical History Chronic Hip pain Medical History Psoriasis Medical History Allergies-receives allergy injections (pt does her own) Medical History type II diabetes Medical History Sacroiliitis, not elsewhere classified Medical History Hypercholesterolemia Surgical History Tubal Ligation Surgical History Tonsillectomy Surgical History Appendectomy Surgical History Hysterectomy Surgical History Left Ankle surgery-Dr Burnham 08/07/2013 Surgical History Right arm surgery 05/03/2014 Surgical History Left carpal tunnel bilat 05/31/2014 Surgical History bilateral cataract surgeries 2015 Hospitalization History surgeries
--- OUTSIDE RECORDS SUMMARY | 2018-02-13 03:45 | XMS REPORT ---
Author Author NADIYA CARMONA Organization [facility] Address [address] [place] [address] Care Team Providers Care Hull Inspector Name Role Phone NADIYA CARMONA Unavailable PROBLEMS Type Condition ICD9-CM Code OYG82-DN Code Onset Dates Condition Status SNOMED Code Problem Asthma J45.909 Active 509209790 Problem Reactive depression F32.9 Active 14730678 Problem Secondary hypertension I15.9 Active 41033071 Problem Open bite of left hand, initial encounter S61.452A Active 392159637 Problem Bitten by cat, initial encounter W55.01XA Active 879784379 Problem Moderate persistent asthma with exacerbation J45.41 Active 329651873 Problem Bronchitis J40 Active 44783742 Problem Simple chronic bronchitis J41.0 Active 80422031 Problem Recurrent major depressive disorder, in full remission F33.42 Active 102635795 Problem Renal failure N19 Active 84658463 Problem Joint pain of left hip on movement M25.552 Active 320270915 Problem Hypercholesterolemia E78.00 Active 46731174 Problem Environmental allergies Z91.09 Active 573240973 Problem PVD (peripheral vascular disease) I73.9 Active 890032732 Problem Diabetes mellitus E11.9 Active 60302195 Problem Proteinuria R80.9 Active 58340692 Problem Insomnia G47.00 Active 030748024 Problem Neuropathy G62.9 Active 323021927 Problem GERD (gastroesophageal reflux disease) K21.9 Active 175096094 ALLERGIES No Information ENCOUNTERS Encounter Location Date Diagnosis [facility] [address] [facility] [id number] [address] Jan, [facility] [address], [place] [address] Dec, [facility] [address] [id number] [address] Dec, Diabetes mellitus E11.9 ; Cervical neuritis M54.12 and Lumbar neuritis M54.16 [place] [address] [address]- [address] Dec, [place] [address] [address]- 0812 Dec, Diabetes mellitus E11.9 [place] [address] [address]40- 9734 Nov, Diabetes mellitus E11.9 [facility] [address] [address] Oct, Dermatitis due to plants, including poison chris, sumac, and oak L25.5 [place] [address] 88743- 1316 Sep, Diabetes mellitus E11.9 and Medication management Z79.[address] [address]- [address] Sep, [place] [address] [address]- 2781 August, Neuropathy G62.9 [facility] [address] [address] August, Open bite of left hand, initial encounter S61.452A ; Encounter for immunization Z23 and Bitten by cat, initial encounter W55.01XA [address] [address]- [address]16 Jul, Environmental allergies Z91.09 [place] [address] [address]- [address]551 Jun, [address] 6[address]47- 2164 Jun, Simple chronic bronchitis J41.0 ; PVD (peripheral vascular disease) I73.9 and Recurrent major depressive disorder, in full remission F33.42 [facility] [address] [id number] 13 Jun, 2017 Dental examination Z01.20 [facility] [id number] [place] [address]44 -1453 04 Jun, 2017 Moderate persistent asthma with exacerbation J45.41 [facility] [id number] [place] [address] 18704- 8479 May, Neuropathy G62.9 and Diabetes mellitus E11.9 [facility] [id number] [place] [address] 71500- 1149 Apr, [facility] [address] [address] Apr, Cough R05 [facility] [id number] [place] [address] 81112- 2637 Feb, [place] [address] 31893- 1411 Feb, [facility] [id number] [place] [address] 00327- 5631 Feb, Diabetes mellitus E11.9 ; Neuropathy G62.9 ; Joint pain of left hip on movement M25.552 and Encounter for immunization Z23 [facility] [id number] [place] [address] 29122- 6486 Feb, [place] [id number] [place] [address] 10491- 8620 Feb, Diabetes mellitus E11.9 [place] [id number] [place] [address] 01357- 0063 Feb, [place] [address] 85046- 2515 Jan, [place] [id number] [place] [address] 62204- 1167 Jan, Secondary hypertension I15.9 [facility] [address] 79200- 2909 Dec, Diabetes mellitus E11.9 [facility] [id number] [place] [address] [id number] Nov, Encounter for dental examination Z01.20 [facility] [id number] [place] [address] 00392 -9614 Oct, Allergic contact dermatitis due to plants, except food L23.7 [facility] [address] 89656- 3091 Oct, [facility] [id number] [place] [address] 07334- 5159 Oct, Diabetes mellitus E11.9 ; PVD (peripheral vascular disease) I73.9 ; Neuropathy G62.9 ; GERD (gastroesophageal reflux disease) K21.9 ; Insomnia G47.00 ; Environmental allergies Z91.09 ; Secondary hypertension I15.9 ; Reactive depression F32.9 ; Hypercholesterolemia E78.00 and Joint pain of left hip on movement M25.552 [facility] [id number] [place] [address] 84047- 2283 Sep, Diabetes mellitus E11.9 [facility] [id number] [place] [address] 28941- 7519 Sep, Diabetes mellitus E11.9 [facility] [id number] [place] [address] 49628- 9715 Sep, Diabetes mellitus E11.9 [facility] [id number] [place] [address] 48766- 6708 Sep, Neuropathy G62.9 [facility] [id number] [place] [address] 79004- 6230 August, [facility] [id number] [place] [address] 22193- 4732 Jul, [facility] [id number] [place] [address] 94550- 7830 Jun, [facility] [address] 80885- 6558 Jun, Diabetes mellitus E11.9 ; PVD (peripheral vascular disease) I73.9 ; Neuropathy G62.9 ; Joint pain of left hip on movement M25.552 ; Renal failure N19 ; Asthma J45.909 ; Reactive depression F32.9 ; Pure hypercholesterolemia, unspecified E78.00 and Insomnia G47.00 [place] [address] 88297- 0474 Jun, Joint pain of left hip on movement M25.552 and Diabetes mellitus E11.9 [place] [address] 83077- 4867 Jun, [facility] [address] 61011 -3561 May, Cough R05 and Bronchitis J40 [place] [address] 16572- 2553 May, [facility] [address] 52054- 1609 May, [place] [address] 60384- 5792 May, Asthma J45.909 and Bronchitis J40 [place] [address] 98596- 3291 May, [place] [address] 13668- 1757 May, Bronchitis J40 [facility] [address] 62405- 1334 May, [place] [address] 47876- 1045 Apr, Diabetes mellitus E11.9 ; PVD (peripheral vascular disease) I73.9 ; GERD (gastroesophageal reflux disease) K21.9 ; Asthma J45.909 ; Insomnia G47.00 ; Environmental allergies Z91.09 ; Secondary hypertension I15.9 ; Joint pain of left hip on movement M25.552 ; Hypercholesterolemia E78.0 and Reactive depression F32.9 [place] [address] 45691- 5555 Mar, Diabetes mellitus E11.9 ; PVD (peripheral vascular disease) I73.9 and Hypercholesterolemia E78.0 [place] [address] 20090- 0699 Mar, Diabetes mellitus E11.9 and Hypercholesterolemia E78.0 [place] [address] 78932- 7711 Mar, [place] [address] 74838- 7155 Feb, [place] [address] 10870- 5465 Feb, [place] [address] 31384- 3362 Feb, [place] [address] 15767- 7292 Jan, Encounter for immunization Z23 [place] [address] 83908- 4600 Jan, [place] [address] 52980- 1774 07 Dec, 2015 [place] [address] 84944- 7658 06 Dec, 2015 Diabetes mellitus E11.9 ; PVD (peripheral vascular disease) I73.9 ; GERD (gastroesophageal reflux disease) K21.9 ; Insomnia G47.00 ; Joint pain of left hip on movement M25.552 ; Asthma J45.909 ; Environmental allergies Z91.09 ; Hypercholesterolemia E78.0 ; Essential hypertension I10 and Neuropathy G62.9 [place] [address] 01766- 8293 Nov, [place] [id number] [place] [address] 83159- 6452 Nov, [place] [id number] [place] [address] 75457- 9479 Oct, PVD (peripheral vascular disease) I73.9 and Diabetes mellitus E11.9 [place] [id number] [place] [address] 10545- 4938 Sep, Diabetes mellitus E11.9 ; PVD (peripheral vascular disease) I73.9 ; Neuropathy G62.9 ; Joint pain of left hip on movement M25.552 ; GERD ( gastroesophageal reflux disease) K21.9 ; Asthma J45.909 ; Insomnia G47.00 ; Secondary hypertension I15.9 and Hypercholesteremia E78.0 [place] [id number] [place] [address] 52472- 0382 August, [place] [id number] [place] [address] 13957- 6148 August, Neuropathy G62.9 [place] [id number] [place] [address] 05658- 3762 August, Neuropathy G62.9 [place] [id number] [place] [address] 66436- 5541 Jun, Diabetes mellitus E11.9 ; Joint pain of left hip on movement M25.552 ; PVD (peripheral vascular disease) I73.9 ; Neuropathy G62.9 ; GERD (gastroesophageal reflux disease) K21.9 ; Asthma J45.909 ; Insomnia G47.00 ; Environmental allergies Z91.09 ; HTN (hypertension) I10 and Hypercholesteremia E78.0 [place] [id number] [place] [address] 98969- 8544 Jun, [place] [id number] [place] [address] 36253- 5815 Jun, [place] [id number] [place] [address] 51305- 1382 Jun, [facility] [id number] [place] [address] 54608- 5411 Apr, [facility] [id number] [place] [address] 18109- 5198 Apr, [facility] [id number] [place] [address] 60442- 7908 Apr, Sinusitis J32.9 [facility] [id number] [place] [address] 92113- 2603 Apr, Neuropathy G62.9 [facility] [id number] [place] [address] 90678- 5274 Mar, [facility] [id number] [place] [address] 26986- 3151 Mar, [facility] [id number] [place] [address] 21533- 1567 Mar, Diabetes mellitus E11.9 ; PVD (peripheral vascular disease) I73.9 ; Neuropathy G62.9 ; GERD (gastroesophageal reflux disease) K21.9 ; Renal failure N19 ; Asthma J45.909 ; Insomnia G47.00 ; Environmental allergies Z91.09 ; Sinusitis J32.9 ; Cough R05 ; Edema R60.9 ; HTN (hypertension) I10 and Hypercholesterolemia E78.0 [facility] [id number] [place] [address] 32712 -2686 Mar, Dysuria R30.0 ; Vomiting, unspecified R11.10 ; Benign essential hypertension I10 and Dizziness R42 [facility] [id number] [place] [address] 01855- 0064 Mar, [facility] [address] 50343- 5992 Mar, [facility] [id number] [place] [address] 75304- 9798 Feb, [facility] [address] [place] [address]- 1267 Feb, [facility] [id number] [place] [address] 25141- 2940 Feb, [facility] [id number] [place] [address] 11640- 4688 Feb, [facility] [id number] [place] [address] 71745- 0985 Feb, Joint pain of left hip on movement M25.552 ; Lumbago M54.5 and UTI (urinary tract infection) N39.0 [facility] [id number] [place] [address] 97413- 1495 Feb, [facility] [id number] [place] [address] 48845- 9102 Feb, [facility] [id number] [place] [address] 39973- 7793 Jan, [facility] [id number] [place] [address] 41447- 6956 Jan, [facility] [id number] [place] [address] 43131- 2543 Jan, [facility] [id number] [place] [address] 10766- 1186 Jan, [facility] [id number] [place] [address] 38607- 2471 Jan, 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 [facility] [id number] [place] [address] 54371- 2114 Dec, Hypertension 401.9 and Diabetes 250.00 [facility] [id number] [place] [address] 86178- 3410 Dec, Diabetes 250.00 ; Influenza vaccine administered V04.81 ; Unspecified peripheral vascular disease 443.9 ; Issue of repeat prescriptions V68.1 ; Unspecified hereditary and idiopathic peripheral neuropathy 356.9 ; Insomnia, unspecified 780.52 ; Hypercholesteremia 272.0 ; Pain in joint, site unspecified 719.40 ; Dizziness 780.4 and PCV-13 (PREVNAR) DX V03.82 [facility] [id number] [place] [address] 73945- 5148 Dec, [facility] [id number] [place] [address] 04275- 3521 Dec, [facility] [address] 64159- 7320 Dec, [facility] [id number] [place] [address] 26531- 5664 Dec, [facility] [address] 55431- 4556 Dec, [facility] [id number] [place] [address] 84921- 2123 Dec, [facility] [id number] [place] [address] 75126- 4531 Nov, [facility] [id number] [place] [address] 49802- 9268 Nov, Environmental allergies V15.09 ; Sacroiliitis, not elsewhere classified 720.2 and Cough 786.2 [facility] [id number] [place] [address] 43164- 0644 Oct, [facility] [id number] [place] [address] 37568- 7945 Oct, [facility] [id number] [place] [address] 78383- 5381 Oct, [facility] [id number] [place] [address] 39030- 9253 Sep, [facility] [id number] [place] [address] 56083- 0542 Sep, [facility] [id number] [place] [address] 08273- 2712 Sep, Dysuria 788.1 and Diabetes with other specified manifestations, type II or unspecified type, not stated as uncontrolled 250.80 [facility] [id number] [place] [address] 41077- 0394 Sep, [facility] [id number] [place] [address] 90292- 4462 Sep, Diabetes with other specified manifestations, type II or unspecified type, not stated as uncontrolled 250.80 [facility] [id number] [place] [address] 31529- 8353 Sep, DM w/o complication type II 250.00 ; Unspecified peripheral vascular disease 443.9 ; Pain in joint, pelvic region and thigh 719.45 ; Asthma , unspecified, unspecified status 493.90 ; Hypercholesteremia 272.0 ; Fatigue 780.79 ; UTI (lower urinary tract infection) 599.0 and Essential hypertension 401.9 [place] [id number] [place] [address] 89951- 7847 Sep, [facility] [id number] [place] [address] 92646- 3120 Sep, [place] [id number] [place] [address] 88943- 2103 Sep, [facility] [address], [place] [address]- 7791 August, [facility] [id number] [place] [address] 05420- 6647 August, [facility] [id number] [place] [address] 18295- 9668 August, Diabetes with other specified manifestations, type II or unspecified type, not stated as uncontrolled 250.80 [facility] [id number] [place] [address] 16706- 8501 Jul, Peripheral vascular disease 443.9 [facility] [id number] [place] [address] 75356- 3346 14 Jul, 2014 [facility] [place] [facility] [address] [id number] [place] [address]- 1602 13 Jul, 2014 [facility] [place] [facility] [address] [id number] [place] [address]- 4184 27 Jun, 2014 [facility] [place] [facility] [address] [facility] [id number] [place] [address]- 0565 27 Jun, 2014 [facility] [place] [facility] [address] [id number] [place] [address]- 5223 14 Jun, 2014 [facility] [place] [facility] [address] [id number] [place] [address]- 4838 Jun, [facility] [place] [facility] [address] [facility] [id number] [place] [address]- 7109 Jun, [facility] [place] [facility] [address] [facility] [id number] [place] [address]- 0577 Jun, [facility] [place] [facility] [address] [id number] [place] [address]- 3908 Jun, [facility] [place] [facility] [address] [id number] [place] [address]- 8277 Jun, [facility] [place] [facility] [address] [facility] [id number] [place] [address]- 3798 Jun, [facility] [place] [facility] [address] [id number] [place] [address]- 6384 May, [facility] [place] [facility] [address] [id number] [place] [address]- 6711 May, [facility] [place] [facility] [address] [id number] [place] [address]- 4606 24 May, 2014 [facility] [place] [facility] [address] [id number] [place] [address]- 0229 May, [facility] [place] [facility] [address] [facility] [id number] [place] [address]- 2184 May, [facility] [place] [facility] [address] [id number] [place] [address]- 9596 May, 2014 [facility] [place] [facility] [address] [id number] [place] [address]- 3286 May, 2014 [facility] [place] [facility] [address] [id number] [place] [address]- 1752 May, 2014 [facility] [place] [facility] [address] [id number] [place] [address]- 3929 May, 2014 [facility] [place] [facility] [address] [id number] [place] [address]- 4877 May, [facility] [place] [facility] [address] [id number] [place] [address]- 5594 May, [facility] [place] [facility] [address] [facility] [id number] [place] [address]- 4132 May, [facility] [place] [facility] [address] [id number] [place] [address]- 2665 May, [facility] [place] [facility] [address] [id number] [place] [address]- 8727 Apr, [facility] [place] [facility] [address] [id number], [place] [address]- 8054 Apr, [facility] [place] [facility] [address] [id number], [place] [address]- 9789 Apr, [facility] [place] [facility] [address] [id number], [place] [address]- 1370 Apr, [facility] [place] [facility] [address] [id number], [place] [address]- 6564 Apr, [facility] [place] [facility] [address] [id number], [place] [address]- 2445 Apr, [facility] [place] [facility] [address] [id number], [place] [address]- 0833 Apr, [facility] [place] [facility] [address] [id number], [place] [address]- 6865 Apr, [facility] [place] [facility] [address] [id number] [place] 2609 Mar, [facility] [place] [facility] [address] [id number] [place] [address]- 6113 Mar, [facility] [place] [facility] [address] [id number] [place] 5168 Mar, [facility] [place] [facility] [address] [id number] [place] [address]- 3890 Mar, [facility] [place] [facility] [address] [id number] [place] 0811 Mar, [facility] [place] [facility] [address] [id number] [place] [address]- 3933 Mar, [facility] [place] [facility] [address] [facility] [id number] [place] [address]- 0559 Mar, [facility] [place] [facility] [address] [id number] [place] [address]- 9872 Mar, [facility] [place] [facility] [address] [id number] [place] [address]- 1969 Mar, [facility] [place] [facility] [address] [facility] [id number] [place] [address]- 1212 Mar, [facility] [place] [facility] [address] [id number] [place] [address]- 7923 Mar, [facility] [place] [facility] [address] [id number] [place] [address]- 9032 Mar, [facility] [place] [facility] [address] [id number] [place] [address]- 7566 Mar, [facility] [place] [facility] [address] [id number] [place] [address]- 1930 Mar, [facility] [place] [facility] [address] [facility] [id number] [place] [address] Feb, [facility] [place] [facility] [address] [id number] [place] [address] Feb, [facility] [place] [facility] [address] [id number] [place] [address] Feb, [facility] [place] [facility] [address] [id number] [place] [address] Feb, [facility] [place] [facility] [address] [id number] [place] [address] Feb, [facility] [place] [facility] [address] [id number] [place] [address] Feb, [facility] [place] [facility] [address] [id number] [place] [address] Feb, [facility] [place] [facility] [address] [id number] [place] [address] Feb, [facility] [place] [facility] [address] [id number] [place] [address] Feb, [facility] [place] [facility] [address] [id number] [place] [address] Feb, [facility] [place] [facility] [address] [id number] [place] [address] Feb, [facility] [place] [facility] [address] [id number] [place] [address] Feb, [facility] [place] [facility] [address] [id number] [place] [address] Feb, [facility] [place] [facility] [address] [id number] [place] [address] Feb, [facility] [place] [facility] [address] [id number] [place] [address] Feb, [facility] [place] [facility] [address] [id number] [place] [address] Feb, [facility] [place] [facility] [address] [id number] [place] [address] Jan, [facility] [place] [facility] [address] [id number] [place] [address] Jan, [facility] [place] [facility] [address] [id number] [place] [address] Jan, [facility] [place] [facility] [address] [id number] [place] [address] Jan, [facility] [place] [facility] [address] [id number] [place] [address] Jan, [facility] [place] [facility] [address] [id number] [place] [address] Jan, [facility] [place] [facility] [address] [id number] [place] [address] Jan, [facility] [place] [facility] [address] [id number] [place] [address] Jan, [facility] [place] [facility] [address] [id number] [place] [address] Dec, [facility] [place] [facility] [address] [id number] [place] [address] Dec, [facility] [place] [facility] [address] [address] [id number] [place] [address] Nov, [facility] [place] [facility] [address] [id number] [place] [address] Nov, [facility] [place] [facility] [address] [id number] [place] [address] 0137 Nov, [facility] [place] [facility] [address] [id number] [place] [address] 2592 Nov, [facility] [place] [facility] [address] [id number] [place] [address] 3671 Nov, [facility] [place] [facility] [address] [id number] [place] [address] 1844 Nov, [facility] [place] [facility] [address] [id number] [place] [address] 3668 Oct, [facility] [place] [facility] [address] [id number] [place] [address] 2712 Oct, [facility] [place] [facility] [address] [id number] [place] [address] 3689 Oct, [facility] [place] [facility] [address] [id number] [place] [address] 8900 Oct, [facility] [place] [facility] [address] [id number] [place] [address] 9860 Sep, [facility] [place] [facility] [address] [id number] [place] [address]- 1527 Sep, [facility] [place] [facility] [address] [id number] [place] [address] 1917 Sep, [facility] [place] [facility] [address] [id number] [place] [address]- 4328 Sep, [facility] [place] [facility] [address] [id number] [place] [address]- 3842 Sep, [facility] [place] [facility] [address] [id number] [place] [address]- 0588 Sep, [facility] [place] [facility] [address] [id number] [place] [address]- 2593 August, [facility] [place] [facility] [address] [id number] [place] [address]- 2127 August, [facility] [place] [facility] [address] [id number] [place] [address]- 6011 August, [facility] [place] [facility] [address] [id number] [place] [address]- 8780 August, [facility] [place] [facility] [address] [id number] [place] [address]- 5271 August, [facility] [place] [facility] [address] [id number] [place] [address]- 9051 August, [facility] [place] [facility] [address] [id number] [place] [address]- 5942 August, [facility] [place] [facility] [address] [id number] [place] [address]- 1079 August, [facility] [place] [facility] [address] [id number] [place] [address] 1624 August, [facility] [place] [facility] [address] [id number] [place] [address]- 7876 August, [facility] [address] [id number] [place] [address]- 2098 August, [facility] [place] [facility] [address] [id number] [place] [address]- 4524 August, [facility] [address] [id number] [place] [address] 7267 Jul, [facility] [place] [facility] [address] [id number] [place] [address] 4207 Jul, [facility] [place] [facility] [address] [id number] [place] [address]- 7463 Jul, [facility] [place] [facility] [address] [id number] [place] [address]- 7647 Jul, [facility] [place] [facility] [address] [id number] [place] [address]- 1139 Jul, [facility] [place] [facility] [address] [id number] [place] [address]- 6601 Jul, [facility] [place] [facility] [address] [id number] [place] [address]- 5323 Jul, [facility] [place] [facility] [address] [id number] [place] [address]- 6428 Jul, [facility] [place] [facility] [address] [id number] [place] [address]- 2499 Jul, [facility] [place] [facility] [address] [id number] [place] [address]- 2546 Jul, [facility] [place] [facility] [address] [id number] [place] [address]- 4836 Jul, [facility] [place] [facility] [address] [id number] [place] [address]- 8206 Jun, [facility] [place] [facility] [address] [id number] [place] [address]- 6535 Jun, [facility] [place] [facility] [address] [id number] [place] [address]- 4828 Jun, [facility] [place] [facility] [address] [id number] [place] [address]- 7931 Jun, [facility] [place] [facility] [address] [id number] [place] [address]- 2854 Jun, [facility] [place] [facility] [address] [id number] [place] [address]- 4015 Jun, [facility] [place] [facility] [address] [id number] [place] [address]- 9035 Jun, [facility] [place] [facility] [address] [id number] [place] [address]- 5465 Jun, [facility] [place] [facility] [address] [id number] [place] [address]- 3707 Jun, [facility] [place] [facility] [address] [id number] [place] [address]- 2410 May, [facility] [place] [facility] [address] [id number] [place] [address]- 9673 May, [facility] [place] [facility] [address] [id number] [place] [address]- 5991 May, [facility] [place] [facility] [address] [id number] [place] [address]- 0919 Apr, [facility] [place] [facility] [address] [id number] [place] [address]- 4604 Apr, [facility] [place] [facility] [address] [id number] [place] [address]- 9452 Apr, [facility] [place] [facility] [address] [id number] [place] [address]- 5481 Apr, [facility] [place] [facility] [address] [id number] [place] [address]- 7401 Apr, [facility] [place] [facility] [address] [id number] [place] [address]- 0565 Apr, [facility] [place] [facility] [address] [id number] [place] [address]- 1978 Apr, [facility] [place] [facility] [address] [id number] [place] [address]- 2078 Apr, [facility] [place] [facility] [address] [id number] [place] [address]- 5306 Mar, [facility] [place] [facility] [address] [id number] [place] [address]- 9411 Mar, [facility] [place] [facility] [address] [id number] [place] [address]- 9825 Feb, [facility] [place] [facility] [address] [id number] [place] [address]- 1284 Feb, [facility] [place] [facility] [address] [facility] [id number] [place] [address]- 1148 Jan, [facility] [place] [facility] [address] [id number] [place] [address]- 8571 Jan, [facility] [place] [facility] [address] [id number] [place] [address]- 5966 Jan, [facility] [place] [facility] [address] [id number] [place] [address]- 9602 Jan, [facility] [place] [facility] [address] [id number] [place] [address]- 0545 Jan, [facility] [place] [facility] [address] [id number] [place] [address]- 7606 Jan, 2012 [facility] [place] [facility] [address] [id number] [place] [address]- 4956 Jan, 2012 [facility] [place] [facility] [address] [id number] [place] [address]- 4201 21 Jan, 2012 [facility] [place] [facility] [address] [id number] [place] [address]- 4271 17 Jan, 2012 [facility] [place] [facility] [address] [id number] [place] [address]- 0902 17 Jan, 2012 [facility] [place] [facility] [address] [id number] [place] [address]- 4484 14 Jan, 2012 [facility] [place] [facility] [address] [id number] [place] [address]- 6441 14 Jan, 2012 [facility] [place] [facility] [address] [id number] [place] [address]- 7996 10 Jan, 2012 [facility] [place] [facility] [address] [id number], [place] [address]- 0665 10 Jan, 2012 [facility] [place] [facility] [address] [id number] [place] [address]- 4957 10 Jan, 2012 [facility] [place] [facility] [address] [id number], [place] [address]- 4202 10 Jan, 2012 [facility] [place] [facility] [address] [id number], [place] [address]- 9689 09 Jan, 2012 [facility] [place] [facility] [address] [id number], [place] [address]- 3076 09 Jan, 2012 [facility] [place] [facility] [address] [id number], [place] [address]- 1753 08 Jan, 2012 [facility] [place] [facility] [address] [id number], [place] [address]- 7406 07 Jan, 2012 [facility] [place] [facility] [address] [id number], [place] [address]- 0072 07 Jan, 2012 [facility] [place] [facility] [address] [id number] [place] [address]- 6451 Jan, [facility] [address] [id number] [place] [address]- 7711 Jan, [facility] [place] [facility] [address] [id number] [place] [address]- 5410 Dec, [facility] [place] [facility] [address] [id number] [place] [address]- 1410 16 Dec, 2012 [facility] [place] [facility] [address] [id number] [place] [address]- 5405 Nov, [facility] [place] [facility] [address] [id number] [place] [address]- 5275 Oct, [facility] [place] [facility] [address] [id number] [place] [address]- 6927 Oct, [facility] [address] [id number] [place] [address]- 1210 Oct, [facility] [place] [facility] [address] [id number] [place] [address]- 6843 Oct, [facility] [place] [facility] [address] [id number] [place] [address]- 2194 Oct, [facility] [place] [facility] [address] [id number] [place] [address]- 5458 Oct, [facility] [place] [facility] [address] [id number] [place] [address]- 6146 Sep, [facility] [place] [facility] [address] [id number] [place] [address]- 7351 Sep, [facility] [place] [facility] [address] [id number] [place] [address]- 5873 Sep, [facility] [place] [facility] [address] [id number] [place] [address]- 5383 Jul, [facility] [place] [facility] [address] [id number] [place] [address]- 4391 Jul, [facility] [place] [facility] [address] [id number] [place] [address]- 2649 Jul, [facility] [address] [id number] [place] [address]- 9302 Jun, [facility] [address] [id number] [place] [address]- 8413 Jun, [facility] [address] [id number] [place] [address]- 4322 Jun, [facility] [address] [id number] [place] [address]- 4580 Jun, [facility] [address] [id number] [place] [address]- 1939 Jun, [facility] [address] [id number] [place] [address]- 7941 Jun, [facility] [address] [id number] [place] [address]- 9765 May, [facility] [address] [id number] [place] [address]- 7131 May, [facility] [address] [id number] [place] [address]- 4757 Apr, [facility] [address] [id number] [place] [address]- 5033 Apr, [facility] [address] [id number] [place] [address]- 2461 Apr, [facility] [place] [facility] [address] [id number] [place] [address]- 4171 Apr, [facility] [place] [facility] [address] [id number] [place] [address]- 3303 Apr, [facility] [address] [id number] [place] [address]- 0729 Mar, [facility] [address] [id number] [place] [address]- 9544 31 Mar, 2012 [facility] [place] [facility] [address] [id number] [place] [address]- 8186 Mar, [facility] [place] [facility] [address] [id number] [place] [address]- 5686 Mar, [facility] [place] [facility] [address] [id number] [place] [address]- 6276 14 Mar, 2012 [facility] [place] [facility] [address] [id number] [place] [address]- 2616 14 Mar, 2012 [facility] [place] [facility] [address] [id number] [place] [address]- 9433 10 Mar, 2012 [facility] [place] [facility] [address] [id number] [place] [address]- 9154 Mar, [facility] [place] [facility] [address] [id number] [place] [address]- 2782 05 Mar, 2012 [facility] [place] [facility] [address] [id number] [place] [address]- 1044 05 Mar, 2012 [facility] [place] [facility] [address] [id number] [place] [address]- 5667 30 Feb, 2012 [facility] [place] [facility] [address] [id number] [place] [address]- 7252 30 Feb, 2012 [facility] [place] [facility] [address] [id number] [place] [address]- 0757 Feb, [facility] [place] [facility] [address] [id number] [place] [address]- 9786 Feb, [facility] [place] [facility] [address] [id number] [place] [address]- 6386 Feb, [facility] [place] [facility] [address] [id number] [place] [address]- 8540 Feb, [facility] [place] [facility] [address] [id number] [place] [address]- 6802 Feb, [facility] [place] [facility] [address] [id number] [place] [address]- 1708 Feb, [facility] [place] [facility] [address] [id number] [place] [address]- 6443 Feb, [facility] [place] [facility] [address] [id number] [place] [address]- 7329 Feb, [facility] [place] [facility] [address] [id number] [place] [address]- 4067 Jan, [facility] [place] [facility] [address] [id number] [place] [address]- 3837 18 Jan, 2012 [facility] [place] [facility] [address] [id number] [place] [address]- 4551 Jan, [facility] [place] [facility] [address] [id number] [place] [address]- 7377 Jan, [facility] [place] [facility] [address] [id number] [place] [address]- 9110 28 Sep, 2011 [facility] [place] [facility] [address] [id number] [place] [address]- 8798 25 Sep, 2011 [facility] [place] [facility] [address] [id number] [place] [address]- 4333 18 Sep, 2011 [facility] [place] [facility] [address] [id number] [place] [address]- 6196 18 Sep, 2011 [facility] [place] [facility] [address] [id number] [place] [address]- 2540 17 Sep, 2011 [facility] [place] [facility] [address] [id number] [place] [address]- 2545 14 Sep, 2011 [facility] [place] [facility] [address] [id number] [place] [address]- 8321 13 Sep, 2011 [facility] [place] [facility] [address] [id number] [place] [address]- 2547 13 Sep, 2011 [facility] [place] [facility] [address] [id number] [place] [address]- 9598 Dec, [facility] [place] [facility] [address] [id number] [place] [address]- 4349 Nov, [facility] [place] [facility] [address] [id number] [place] [address]- 2320 Nov, [facility] [place] [facility] [address] [id number] [place] [address]- 7903 Nov, [facility] [place] [facility] [address] [id number] [place] [address]- 2154 Nov, [facility] [place] [facility] [address] [id number] [place] [address]- 8535 Sep, [facility] [place] [facility] [address] [id number] [place] [address]- 8068 Sep, [facility] [place] [facility] [address] [id number] [place] [address]- 0562 Sep, [facility] [place] [facility] [address] [id number] [place] [address]- 5539 August, [facility] [place] [facility] [address] [id number] [place] [address]- 6426 August, [facility] [place] [facility] [address] [id number] [place] [address]- 7656 August, [facility] [place] [facility] [address] [id number] [place] [address]- 5037 August, [facility] [place] [facility] [address] [id number] [place] [address]- 2319 August, [facility] [place] [facility] [address] [id number] [place] [address]- 2446 August, [facility] [place] [facility] [address] [id number] [place] [address]- 8856 August, [facility] [place] [facility] [address] [id number] [place]803 August, [facility] [place] [facility] [address] [id number] [place] [address]- 7842 August, [facility] [place] [facility] [address] [id number] [place] [address]- 7161 Jul, [facility] [place] [facility] [address] [id number] [place] [address]- 6676 Jun, [facility] [place] [facility] [address] [id number] [place] [address]- 9576 16 Jun, 2011 [facility] [place] [facility] [address] [id number] [place] [address]- 6763 08 Jun, 2011 [facility] [place] [facility] [address] [id number] [place] [address]- 9315 06 Jun, 2011 [facility] [place] [facility] [address] [id number] [place] [address]- 1167 05 Jun, 2011 [facility] [place] [facility] [address] [id number] [place] [address]- 6296 Jun, [facility] [place] [facility] [address] [id number] [place] [address]- 1330 Jun, [facility] [place] [facility] [address] [id number] [place] [address]- 6382 Jun, [facility] [place] [facility] [address] [id number] [place] [address]- 3939 May, [facility] [place] [facility] [address] [id number] [place] [address]- 7018 May, [facility] [place] [facility] [address] [id number] [place] [address]- 9588 May, [facility] [place] [facility] [address] [id number] [place] [address]- 7016 May, [facility] [place] [facility] [address] [id number] [place] [address]- 1496 17 May, 2011 [facility] [place] [facility] [address] [id number] [place] [address]- 5589 16 May, 2011 [facility] [place] [facility] [address] [id number] [place] [address]- 1082 14 May, 2011 [facility] [place] [facility] [address] [id number] [place] [address]- 7038 19 Apr, 2011 [facility] [place] [facility] [address] [id number] [place] [address]- 6922 16 Apr, 2011 [facility] [place] [facility] [address] [id number] [place] [address]- 5616 13 Apr, 2011 [facility] [place] [facility] [address] [id number] [place] [address]- 4408 11 Apr, 2011 [facility] [place] [facility] [address] [id number] [place] [address]- 9368 Apr, [facility] [place] [facility] [address] [id number] [place] [address]- 0285 Apr, [facility] [place] [facility] [address] [id number] [place] [address]- 6503 05 Apr, 2011 [facility] [place] [facility] [address] [id number] [place] [address]- 6122 Apr, [facility] [place] [facility] [address] [id number], [place] [address]- 0919 29 Mar, 2011 [facility] [place] [facility] [address] [id number] [place] [address]- 0718 Mar, [facility] [place] [facility] [address] [id number], [place] [address]- 8591 28 Feb, 2011 [facility] [place] [facility] [address] [id number] [place] [address]- 68[address] 17 Feb, 2011 [facility] [place] [facility] [address] [id number] [place] [address] 17 Feb, 2011 [facility] [place] [facility] [address] [id number], [place] [address] 16 Feb, 2011 [facility] [place] [facility] [address] [id number], [place] [address] 16 Feb, 2011 [facility] [place] [facility] [address] [id number] [place] [address] 24 Jan, 2011 [facility] [place] [facility] [address] [id number] [place] [address] 12 Nov, 2010 [facility] [place] [facility] [address] [id number] [place] [address] 14 Sep, 2010 [facility] [place] [facility] [address] [id number] [place] [address] August, [facility] [place] [facility] [address] [id number] [place] [address] Jun, [facility] [place] [facility] [address] [id number] [place] [address] 14 May, 2010 [facility] [place] [facility] [address] [id number] [place] [address] 18 Apr, 2010 [facility] [place] [facility] [address] [id number] [place] [address] 22 Mar, 2010 [facility] [place] [facility] [address] [id number] [place] [address] 14 Mar, 2010 [facility] [place] [facility] [address] [id number] [place] [address] 14 Mar, 2010 [facility] [place] [facility] [address] [id number] [place] [address] 12 Feb, 2010 [facility] [place] [facility] [address] [id number] [place] [address] Feb, [facility] [place] [facility] [address] [id number] [place] [address] 12 Jan, 2010 [facility] [place] [facility] [address] [id number] [place] [address] 11 Jan, 2010 [facility] [place] [facility] [address] [facility] [id number] [place] [address] 11 Jan, 2010 [facility] [place] [facility] [address] [facility] [id number], [place] [address] Oct, [facility] [address] [id number], [place] [address] Oct, [facility] [id number], [place] [address] Apr, [facility] [address] [id number], [place] [address] Mar, [facility] [address] [id number], [place] [address] Mar, [facility] [address] [id number], [place] [address] Jan, [facility] [address] [id number], [place] [address] Dec, IMMUNIZATIONS No Known Immunizations SOCIAL HISTORY Never Assessed REASON FOR VISIT MRI/referral PLAN OF CARE VITAL SIGNS MEDICATIONS Unknown Medications RESULTS No Results PROCEDURES No Known procedures INSTRUCTIONS MEDICATIONS ADMINISTERED No Known Medications MEDICAL [...]
--- OUTSIDE RECORDS SUMMARY | 2018-02-13 03:46 | XMS REPORT ---
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
--- OUTSIDE RECORDS SUMMARY | 2018-02-13 03:47 | XMS REPORT ---
Author Author NADIYA CARMONA Organization [facility] Address [address] [place] [address] Care Team Providers Care Clinical Genetics Laboratory Chief Name Role Phone NADIYA CARMONA Unavailable PROBLEMS Type Condition ICD9-CM Code QCU19-JV Code Onset Dates Condition Status SNOMED Code Problem Asthma J45.909 Active 167064308 Problem Reactive depression F32.9 Active 63341734 Problem Secondary hypertension I15.9 Active 24033864 Problem Open bite of left hand, initial encounter S61.452A Active 591378900 Problem Bitten by cat, initial encounter W55.01XA Active 065644478 Problem Moderate persistent asthma with exacerbation J45.41 Active 649951842 Problem Bronchitis J40 Active 82811174 Problem Simple chronic bronchitis J41.0 Active 25872874 Problem Recurrent major depressive disorder, in full remission F33.42 Active 150896881 Problem Renal failure N19 Active 94803060 Problem Joint pain of left hip on movement M25.552 Active 795840549 Problem Hypercholesterolemia E78.00 Active 71764137 Problem Environmental allergies Z91.09 Active 456116832 Problem PVD (peripheral vascular disease) I73.9 Active 515681050 Problem Diabetes mellitus E11.9 Active 76012964 Problem Proteinuria R80.9 Active 47284088 Problem Insomnia G47.00 Active 367943503 Problem Neuropathy G62.9 Active 050602055 Problem GERD (gastroesophageal reflux disease) K21.9 Active 098150494 ALLERGIES No Information ENCOUNTERS Encounter Location Date Diagnosis [facility] [address] [facility] [id number] [address] Jan, [facility] [address], [place] [address] Dec, [facility] [address] [id number] [address] Dec, Diabetes mellitus E11.9 ; Cervical neuritis M54.12 and Lumbar neuritis M54.16 [place] [address] [address]44- 6748 Dec, [place] [address] 0[address]36- 2496 Dec, Diabetes mellitus E11.9 [place] [address] 25016- 9710 Nov, Diabetes mellitus E11.9 [facility] [address] [address] Oct, Dermatitis due to plants, including poison chris, sumac, and oak L25.5 [place] [address] 03014- 6792 Sep, Diabetes mellitus E11.9 and Medication management Z79.[address] [address]- [address]759 Sep, [place] [address] 23744- 4573 August, Neuropathy G62.9 [facility] [address] [address] August, Open bite of left hand, initial encounter S61.452A ; Encounter for immunization Z23 and Bitten by cat, initial encounter W55.01XA [address] [address]- [address] Jul, Environmental allergies Z91.09 [place] [address] 45446- 9942 Jun, [address] 28[address]- 4479 Jun, Simple chronic bronchitis J41.0 ; PVD (peripheral vascular disease) I73.9 and Recurrent major depressive disorder, in full remission F33.42 [facility] [address] [id number] 13 Jun, 2017 Dental examination Z01.20 [facility] [id number] [place] [address]371 -9183 04 Jun, 2017 Moderate persistent asthma with exacerbation J45.41 [facility] [id number] [place] [address] 66354- 8930 May, Neuropathy G62.9 and Diabetes mellitus E11.9 [facility] [id number] [place] [address] 70737- 3260 Apr, [facility] [address] 8[address]01[address] Apr, Cough R05 [facility] [id number] [place] [address] 99262- 8655 Feb, [place] [address] 60223- 9073 Feb, [facility] [id number] [place] [address] 11721- 2519 Feb, Diabetes mellitus E11.9 ; Neuropathy G62.9 ; Joint pain of left hip on movement M25.552 and Encounter for immunization Z23 [facility] [id number] [place] [address] 09351- 9549 Feb, [place] [id number] [place] [address] 88293- 9707 Feb, Diabetes mellitus E11.9 [place] [id number] [place] [address] 02658- 2456 Feb, [place] [address] 04144- 8504 Jan, [place] [id number] [place] [address] 12230- 3702 Jan, Secondary hypertension I15.9 [facility] [address] 94679- 1285 Dec, Diabetes mellitus E11.9 [facility] [id number] [place] [address] [id number] Nov, Encounter for dental examination Z01.20 [facility] [id number] [place] [address] 81559 -8750 Oct, Allergic contact dermatitis due to plants, except food L23.7 [facility] [address] 10521- 0103 Oct, [facility] [id number] [place] [address] 01763- 8682 Oct, Diabetes mellitus E11.9 ; PVD (peripheral vascular disease) I73.9 ; Neuropathy G62.9 ; GERD (gastroesophageal reflux disease) K21.9 ; Insomnia G47.00 ; Environmental allergies Z91.09 ; Secondary hypertension I15.9 ; Reactive depression F32.9 ; Hypercholesterolemia E78.00 and Joint pain of left hip on movement M25.552 [facility] [id number] [place] [address] 89111- 4504 Sep, Diabetes mellitus E11.9 [facility] [id number] [place] [address] 99571- 5566 Sep, Diabetes mellitus E11.9 [facility] [id number] [place] [address] 19165- 5584 Sep, Diabetes mellitus E11.9 [facility] [id number] [place] [address] 91105- 1055 Sep, Neuropathy G62.9 [facility] [id number] [place] [address] 40445- 2641 August, [facility] [id number] [place] [address] 50193- 9220 Jul, [facility] [id number] [place] [address] 27129- 8130 Jun, [facility] [address] 54474- 3817 Jun, Diabetes mellitus E11.9 ; PVD (peripheral vascular disease) I73.9 ; Neuropathy G62.9 ; Joint pain of left hip on movement M25.552 ; Renal failure N19 ; Asthma J45.909 ; Reactive depression F32.9 ; Pure hypercholesterolemia, unspecified E78.00 and Insomnia G47.00 [place] [address] 08869- 3256 Jun, Joint pain of left hip on movement M25.552 and Diabetes mellitus E11.9 [place] [address] 33201- 2188 Jun, [facility] [address] 8[address]56 -[address] May, Cough R05 and Bronchitis J40 [place] [address] 71523- 9360 May, [facility] [address] 87039- 3410 May, [place] [address] 26717- 3857 May, Asthma J45.909 and Bronchitis J40 [place] [address] 22984- 1353 May, [place] [address] 00118- 8900 May, Bronchitis J40 [facility] [address] 77501- 2116 May, [place] [address] 30026- 0383 Apr, Diabetes mellitus E11.9 ; PVD (peripheral vascular disease) I73.9 ; GERD (gastroesophageal reflux disease) K21.9 ; Asthma J45.909 ; Insomnia G47.00 ; Environmental allergies Z91.09 ; Secondary hypertension I15.9 ; Joint pain of left hip on movement M25.552 ; Hypercholesterolemia E78.0 and Reactive depression F32.9 [place] [address] 26728- 1238 Mar, Diabetes mellitus E11.9 ; PVD (peripheral vascular disease) I73.9 and Hypercholesterolemia E78.0 [place] [address] 12114- 8135 Mar, Diabetes mellitus E11.9 and Hypercholesterolemia E78.0 [place] [address] 54594- 0980 Mar, [place] [address] 79690- 0224 Feb, [place] [address] 51304- 0376 Feb, [place] [address] 42245- 1920 Feb, [place] [address] 95420- 5643 Jan, Encounter for immunization Z23 [place] [address] 46133- 4151 Jan, [place] [address] 28353- 2339 07 Dec, 2015 [place] [address] 76547- 7952 06 Dec, 2015 Diabetes mellitus E11.9 ; PVD (peripheral vascular disease) I73.9 ; GERD (gastroesophageal reflux disease) K21.9 ; Insomnia G47.00 ; Joint pain of left hip on movement M25.552 ; Asthma J45.909 ; Environmental allergies Z91.09 ; Hypercholesterolemia E78.0 ; Essential hypertension I10 and Neuropathy G62.9 [place] [address] 58424- 5426 Nov, [place] [id number] [place] [address] 88254- 7686 Nov, [place] [id number] [place] [address] 48565- 7156 Oct, PVD (peripheral vascular disease) I73.9 and Diabetes mellitus E11.9 [place] [id number] [place] [address] 74970- 4809 Sep, Diabetes mellitus E11.9 ; PVD (peripheral vascular disease) I73.9 ; Neuropathy G62.9 ; Joint pain of left hip on movement M25.552 ; GERD ( gastroesophageal reflux disease) K21.9 ; Asthma J45.909 ; Insomnia G47.00 ; Secondary hypertension I15.9 and Hypercholesteremia E78.0 [place] [id number] [place] [address] 25052- 6735 August, [place] [id number] [place] [address] 50050- 9867 August, Neuropathy G62.9 [place] [id number] [place] [address] 85068- 5753 August, Neuropathy G62.9 [place] [id number] [place] [address] 34391- 2308 Jun, Diabetes mellitus E11.9 ; Joint pain of left hip on movement M25.552 ; PVD (peripheral vascular disease) I73.9 ; Neuropathy G62.9 ; GERD (gastroesophageal reflux disease) K21.9 ; Asthma J45.909 ; Insomnia G47.00 ; Environmental allergies Z91.09 ; HTN (hypertension) I10 and Hypercholesteremia E78.0 [place] [id number] [place] [address] 24317- 3383 Jun, [place] [id number] [place] [address] 82131- 5583 Jun, [place] [id number] [place] [address] 48851- 6278 Jun, [facility] [address] [place] [address] 91385- 5578 Apr, [facility] [id number] [place] [address] 71621- 4238 Apr, [facility] [id number] [place] [address] 44396- 1967 Apr, Sinusitis J32.9 [facility] [id number] [place] [address] 13936- 8300 Apr, Neuropathy G62.9 [facility] [id number] [place] [address] 01577- 2670 Mar, [facility] [id number] [place] [address] 76030- 0624 Mar, [facility] [id number] [place] [address] 20429- 1089 Mar, Diabetes mellitus E11.9 ; PVD (peripheral vascular disease) I73.9 ; Neuropathy G62.9 ; GERD (gastroesophageal reflux disease) K21.9 ; Renal failure N19 ; Asthma J45.909 ; Insomnia G47.00 ; Environmental allergies Z91.09 ; Sinusitis J32.9 ; Cough R05 ; Edema R60.9 ; HTN (hypertension) I10 and Hypercholesterolemia E78.0 [facility] [address] [place] [address] 91597 -0823 Mar, Dysuria R30.0 ; Vomiting, unspecified R11.10 ; Benign essential hypertension I10 and Dizziness R42 [facility] [id number] [place] [address] 82970- 3800 Mar, [facility] [address] 86176- 8502 Mar, [facility] [id number] [place] [address] 46931- 3067 Feb, [facility] [address] [place] [address]- 5159 Feb, [facility] [id number] [place] [address] 97505- 0877 Feb, [facility] [id number] [place] [address] 55751- 8517 Feb, [facility] [id number] [place] [address] 76768- 0460 Feb, Joint pain of left hip on movement M25.552 ; Lumbago M54.5 and UTI (urinary tract infection) N39.0 [facility] [id number] [place] [address] 44655- 1399 Feb, [facility] [id number] [place] [address] 24304- 3227 Feb, [facility] [id number] [place] [address] 24671- 6848 Jan, [facility] [id number] [place] [address] 02734- 5419 Jan, [facility] [id number] [place] [address] 52587- 7679 Jan, [facility] [id number] [place] [address] 25906- 1101 Jan, [facility] [id number] [place] [address] 59648- 6233 Jan, 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 [facility] [address] [place] [address] 58854- 4107 Dec, Hypertension 401.9 and Diabetes 250.00 [facility] [id number] [place] [address] 98454- 6110 Dec, Diabetes 250.00 ; Influenza vaccine administered V04.81 ; Unspecified peripheral vascular disease 443.9 ; Issue of repeat prescriptions V68.1 ; Unspecified hereditary and idiopathic peripheral neuropathy 356.9 ; Insomnia, unspecified 780.52 ; Hypercholesteremia 272.0 ; Pain in joint, site unspecified 719.40 ; Dizziness 780.4 and PCV-13 (PREVNAR) DX V03.82 [facility] [id number] [place] [address] 48245- 9916 Dec, [facility] [id number] [place] [address] 13409- 6759 Dec, [facility] [address] 05312- 0205 Dec, [facility] [id number] [place] [address] 80871- 0718 Dec, [facility] [address] 48622- 7199 Dec, [facility] [id number] [place] [address] 44592- 0039 Dec, [facility] [id number] [place] [address] 98255- 0888 Nov, [facility] [id number] [place] [address] 02339- 3820 Nov, Environmental allergies V15.09 ; Sacroiliitis, not elsewhere classified 720.2 and Cough 786.2 [facility] [id number] [place] [address] 00217- 7802 Oct, [facility] [id number] [place] [address] 10618- 5263 Oct, [facility] [id number] [place] [address] 02040- 4391 Oct, [facility] [id number] [place] [address] 26965- 0360 Sep, [facility] [id number] [place] [address] 33375- 0350 Sep, [facility] [id number] [place] [address] 66816- 7974 Sep, Dysuria 788.1 and Diabetes with other specified manifestations, type II or unspecified type, not stated as uncontrolled 250.80 [facility] [id number] [place] [address] 52472- 6335 Sep, [facility] [id number] [place] [address] 41353- 4877 Sep, Diabetes with other specified manifestations, type II or unspecified type, not stated as uncontrolled 250.80 [facility] [id number] [place] [address] 23144- 6641 Sep, DM w/o complication type II 250.00 ; Unspecified peripheral vascular disease 443.9 ; Pain in joint, pelvic region and thigh 719.45 ; Asthma , unspecified, unspecified status 493.90 ; Hypercholesteremia 272.0 ; Fatigue 780.79 ; UTI (lower urinary tract infection) 599.0 and Essential hypertension 401.9 [place] [id number] [place] [address] 17225- 5205 Sep, [facility] [id number] [place] [address] 03433- 8614 Sep, [place] [id number] [place] [address] 89681- 8989 Sep, [facility] [address] [address]- 6348 August, [facility] [id number] [place] [address] 36655- 4264 August, [facility] [id number] [place] [address] 72495- 3683 August, Diabetes with other specified manifestations, type II or unspecified type, not stated as uncontrolled 250.80 [facility] [id number] [place] [address] 37260- 9909 Jul, Peripheral vascular disease 443.9 [facility] [id number] [place] [address] 63940- 5266 14 Jul, 2014 [facility] [place] [facility] [address] [id number] [place] [address]- 4070 13 Jul, 2014 [facility] [place] [facility] [address] [id number] [place] [address]- 6327 27 Jun, 2014 [facility] [place] [facility] [address] [facility] [id number] [place] [address]- 4913 27 Jun, 2014 [facility] [place] [facility] [address] [id number] [place] [address]- 2832 14 Jun, 2014 [facility] [place] [facility] [address] [id number] [place] [address]- 8400 Jun, [facility] [place] [facility] [address] [facility] [id number] [place] [address]- 7425 Jun, [facility] [place] [facility] [address] [facility] [id number] [place] [address]- 3404 Jun, [facility] [place] [facility] [address] [id number] [place] [address]- 0372 Jun, [facility] [place] [facility] [address] [id number] [place] [address]- 9876 Jun, [facility] [place] [facility] [address] [facility] [id number] [place] [address]- 9043 Jun, [facility] [place] [facility] [address] [id number] [place] [address]- 6294 May, [facility] [place] [facility] [address] [id number] [place] [address]- 5549 May, [facility] [place] [facility] [address] [id number] [place] [address]- 8985 24 May, 2014 [facility] [place] [facility] [address] [id number] [place] [address]- 8748 May, [facility] [place] [facility] [address] [facility] [id number] [place] [address]- 5839 May, [facility] [place] [facility] [address] [id number] [place] [address]- 4321 May, 2014 [facility] [place] [facility] [address] [id number] [place] [address]- 1036 May, 2014 [facility] [place] [facility] [address] [id number] [place] [address]- 8742 May, 2014 [facility] [place] [facility] [address] [id number] [place] [address]- 5732 May, 2014 [facility] [place] [facility] [address] [id number] [place] [address]- 9135 May, [facility] [place] [facility] [address] [id number] [place] [address]- 0552 May, [facility] [place] [facility] [address] [facility] [id number] [place] [address]- 2575 May, [facility] [place] [facility] [address] [id number] [place] [address]- 4637 May, [facility] [place] [facility] [address] [id number] [place] [address]- 7961 Apr, [facility] [place] [facility] [address] [id number] [address]- 3892 Apr, [facility] [place] [facility] [address] [id number], [place] [address]- 2865 Apr, [facility] [place] [facility] [address] [id number], [place] [address]- 7376 Apr, [facility] [place] [facility] [address] [id number], [place] [address]- 8583 Apr, [facility] [place] [facility] [address] [id number], [place] [address]- 5413 Apr, [facility] [place] [facility] [address] [id number], [place] [address]- 2840 Apr, [facility] [place] [facility] [address] [id number], [place] [address]- 4990 Apr, [facility] [place] [facility] [address] [id number] [place] 6197 Mar, [facility] [place] [facility] [address] [id number] [place] [address]- 0807 Mar, [facility] [place] [facility] [address] [id number] [place] 8913 Mar, [facility] [place] [facility] [address] [id number] [place] [address]- 8889 Mar, [facility] [place] [facility] [address] [id number] [place] 9379 Mar, [facility] [place] [facility] [address] [id number] [place] [address]- 3357 Mar, [facility] [place] [facility] [address] [facility] [id number] [place] [address]- 1979 Mar, [facility] [place] [facility] [address] [id number] [place] [address]- 9510 Mar, [facility] [place] [facility] [address] [id number] [place] [address]- 7532 Mar, [facility] [place] [facility] [address] [facility] [id number] [place] [address]- 2629 Mar, [facility] [place] [facility] [address] [id number] [place] [address] Mar, [facility] [place] [facility] [address] [id number] [place] [address] Mar, [facility] [place] [facility] [address] [id number] [place] [address] Mar, [facility] [place] [facility] [address] [id number] [place] [address] Mar, [facility] [place] [facility] [address] [facility] [id number] [place] [address] Feb, [facility] [place] [facility] [address] [id number] [place] [address] Feb, [facility] [place] [facility] [address] [id number] [place] [address] Feb, [facility] [place] [facility] [address] [id number] [place] [address] Feb, [facility] [place] [facility] [address] [id number] [place] [address] Feb, [facility] [place] [facility] [address] [id number] [place] [address] Feb, [facility] [place] [facility] [address] [id number] [place] [address] Feb, [facility] [place] [facility] [address] [id number] [place] [address] Feb, [facility] [place] [facility] [address] [id number] [place] [address] Feb, [facility] [place] [facility] [address] [id number] [place] [address] Feb, [facility] [place] [facility] [address] [id number] [place] [address] Feb, [facility] [place] [facility] [address] [id number] [place] [address] Feb, [facility] [place] [facility] [address] [id number] [place] [address] Feb, [facility] [place] [facility] [address] [id number] [place] [address] Feb, [facility] [place] [facility] [address] [id number] [place] [address] Feb, [facility] [place] [facility] [address] [id number] [place] [address] Feb, [facility] [place] [facility] [address] [id number] [place] [address] Jan, [facility] [place] [facility] [address] [id number] [place] [address] Jan, [facility] [place] [facility] [address] [id number] [place] [address] Jan, [facility] [place] [facility] [address] [id number] [place] [address] Jan, [facility] [place] [facility] [address] [id number] [place] [address] Jan, [facility] [place] [facility] [address] [id number] [place] [address] Jan, [facility] [place] [facility] [address] [id number] [place] [address] Jan, [facility] [place] [facility] [address] [id number] [place] [address] Jan, [facility] [place] [facility] [address] [id number] [place] [address] Dec, [facility] [place] [facility] [address] [id number] [place] [address] Dec, [facility] [place] [facility] [address] [id number] [place] [address] Nov, [facility] [place] [facility] [address] [id number] [place] [address] Nov, [facility] [place] [facility] [address] [id number] [place] [address] Nov, [facility] [place] [facility] [address] [id number] [place] [address] Nov, [facility] [place] [facility] [address] [id number] [place] [address] Nov, [facility] [place] [facility] [address] [id number] [place] [address] Nov, [facility] [place] [facility] [address] [id number] [place] [address] 9460 Oct, [facility] [place] [facility] [address] [id number] [place] [address] 6105 Oct, [facility] [place] [facility] [address] [id number] [place] [address] 5008 Oct, [facility] [place] [facility] [address] [id number] [place] [address] 7638 Oct, [facility] [place] [facility] [address] [id number] [place] [address] 9265 Sep, [facility] [place] [facility] [address] [id number] [place] [address] 3532 Sep, [facility] [place] [facility] [address] [id number] [place] [address] 6668 Sep, [facility] [place] [facility] [address] [id number] [place] [address] 7428 Sep, [facility] [place] [facility] [address] [id number] [place] [address] 4423 Sep, [facility] [place] [facility] [address] [id number] [place] [address]- 0918 Sep, [facility] [place] [facility] [address] [id number] [place] [address] 7275 August, [facility] [place] [facility] [address] [id number] [place] [address]- 1424 August, [facility] [place] [facility] [address] [id number] [place] [address]- 9509 August, [facility] [place] [facility] [address] [id number] [place] [address]- 4357 August, [facility] [place] [facility] [address] [id number] [place] [address] 9908 August, [facility] [place] [facility] [address] [id number] [place] [address]- 8778 August, [facility] [place] [facility] [address] [id number] [place] [address] 3349 August, [facility] [place] [facility] [address] [id number] [place] [address] 1150 August, [facility] [place] [facility] [address] [id number] [place] [address]- 1437 August, [facility] [place] [facility] [address] [id number] [place] [address]- 1768 August, [facility] [address] [id number] [place] [address]- 7816 August, [facility] [place] [facility] [address] [id number] [place] [address]- 0740 August, [facility] [address] [id number] [place] [address] 8448 Jul, [facility] [place] [facility] [address] [id number] [place] [address] 3243 Jul, [facility] [place] [facility] [address] [id number] [place] [address]- 2404 Jul, [facility] [place] [facility] [address] [id number] [place] [address] 9719 Jul, [facility] [place] [facility] [address] [id number] [place] [address]- 7673 Jul, [facility] [place] [facility] [address] [id number] [place] [address] 1895 Jul, [facility] [place] [facility] [address] [id number] [place] [address]- 8765 Jul, [facility] [place] [facility] [address] [id number] [place] [address]- 9745 Jul, [facility] [place] [facility] [address] [id number] [place] [address]- 0951 Jul, [facility] [place] [facility] [address] [id number] [place] [address]- 2546 Jul, [facility] [place] [facility] [address] [id number] [place] [address]- 2450 Jul, [facility] [place] [facility] [address] [id number] [place] [address]- 7040 Jun, [facility] [place] [facility] [address] [id number] [place] [address]- 9044 Jun, [facility] [place] [facility] [address] [id number] [place] [address]- 7688 Jun, [facility] [place] [facility] [address] [id number] [place] [address]- 5399 Jun, [facility] [place] [facility] [address] [id number] [place] [address]- 6356 Jun, [facility] [place] [facility] [address] [id number] [place] [address]- 2673 Jun, [facility] [place] [facility] [address] [id number] [place] [address]- 2337 Jun, [facility] [place] [facility] [address] [id number] [place] [address]- 7067 Jun, [facility] [place] [facility] [address] [id number] [place] [address]- 5549 Jun, [facility] [place] [facility] [address] [id number] [place] [address]- 0110 May, [facility] [place] [facility] [address] [id number] [place] [address]- 8032 May, [facility] [place] [facility] [address] [id number] [place] [address]- 2320 May, [facility] [place] [facility] [address] [id number] [place] [address]- 8731 Apr, [facility] [place] [facility] [address] [id number] [place] [address]- 7824 Apr, [facility] [place] [facility] [address] [id number] [place] [address]- 0017 Apr, [facility] [place] [facility] [address] [id number] [place] [address]- 6817 Apr, [facility] [place] [facility] [address] [id number] [place] [address]- 4783 Apr, [facility] [place] [facility] [address] [id number] [place] [address]- 4257 Apr, [facility] [place] [facility] [address] [id number] [place] [address]- 7782 Apr, [facility] [place] [facility] [address] [id number] [place] [address]- 0225 Apr, [facility] [place] [facility] [address] [id number] [place] [address]- 9359 Mar, [facility] [place] [facility] [address] [id number] [place] [address]- 4042 Mar, [facility] [place] [facility] [address] [id number] [place] [address]- 2015 Feb, [facility] [place] [facility] [address] [id number] [place] [address]- 9070 Feb, [facility] [place] [facility] [address] [facility] [id number] [place] [address]- 0202 Jan, [facility] [place] [facility] [address] [id number] [place] [address]- 0963 Jan, [facility] [place] [facility] [address] [id number] [place] [address]- 6492 Jan, [facility] [place] [facility] [address] [id number] [place] [address]- 7120 Jan, [facility] [place] [facility] [address] [id number] [place] [address]- 7091 Jan, [facility] [place] [facility] [address] [id number] [place] [address]- 2588 Jan, 2012 [facility] [place] [facility] [address] [id number] [place] [address]- 9136 Jan, 2012 [facility] [place] [facility] [address] [id number] [place] [address]- 9189 21 Jan, 2012 [facility] [place] [facility] [address] [id number] [place] [address]- 9435 17 Jan, 2012 [facility] [place] [facility] [address] [id number] [place] [address]- 3575 17 Jan, 2012 [facility] [place] [facility] [address] [id number] [place] [address]- 8784 14 Jan, 2012 [facility] [place] [facility] [address] [id number] [place] [address]- 8325 14 Jan, 2012 [facility] [place] [facility] [address] [id number] [place] [address]- 2721 10 Jan, 2012 [facility] [place] [facility] [address] [id number], [place] [address]- 0427 10 Jan, 2012 [facility] [place] [facility] [address] [id number] [place] [address]- 1714 10 Jan, 2012 [facility] [place] [facility] [address] [id number], [place] [address]- 9521 10 Jan, 2012 [facility] [place] [facility] [address] [id number], [place] [address]- 6879 09 Jan, 2012 [facility] [place] [facility] [address] [id number], [place] [address]- 5165 09 Jan, 2012 [facility] [place] [facility] [address] [id number], [place] [address]- 7462 08 Jan, 2012 [facility] [place] [facility] [address] [id number], [place] [address]- 1056 07 Jan, 2012 [facility] [place] [facility] [address] [id number], [place] [address]- 8140 07 Jan, 2012 [facility] [place] [facility] [address] [id number] [place] [address]- 6131 Jan, [facility] [address] [id number] [place] [address]- 4367 Jan, [facility] [place] [facility] [address] [id number] [place] [address]- 3773 Dec, [facility] [place] [facility] [address] [id number] [place] [address]- 3044 16 Dec, 2012 [facility] [place] [facility] [address] [id number] [place] [address]- 3476 Nov, [facility] [place] [facility] [address] [id number] [place] [address]- 6762 Oct, [facility] [place] [facility] [address] [id number] [place] [address]- 0676 Oct, [facility] [address] [id number] [place] [address]- 4951 Oct, [facility] [place] [facility] [address] [id number] [place] [address]- 4187 Oct, [facility] [place] [facility] [address] [id number] [place] [address]- 3261 Oct, [facility] [place] [facility] [address] [id number] [place] [address]- 2737 Oct, [facility] [place] [facility] [address] [id number] [place] [address]- 3665 Sep, [facility] [place] [facility] [address] [id number] [place] [address]- 5304 Sep, [facility] [place] [facility] [address] [id number] [place] [address]- 6431 Sep, [facility] [place] [facility] [address] [id number] [place] [address]- 8077 Jul, [facility] [place] [facility] [address] [id number] [place] [address]- 8922 Jul, [facility] [place] [facility] [address] [id number] [place] [address]- 9902 Jul, [facility] [address] [id number] [place] [address]- 0609 Jun, [facility] [address] [id number] [place] [address]- 6700 Jun, [facility] [address] [id number] [place] [address]- 5984 Jun, [facility] [address] [id number] [place] [address]- 6669 Jun, [facility] [address] [id number] [place] [address]- 7834 Jun, [facility] [address] [id number] [place] [address]- 3263 Jun, [facility] [address] [id number] [place] [address]- 6965 May, [facility] [address] [id number] [place] [address]- 3924 May, [facility] [address] [id number] [place] [address]- 3434 Apr, [facility] [address] [id number] [place] [address]- 6919 Apr, [facility] [address] [id number] [place] [address]- 7279 Apr, [facility] [place] [facility] [address] [id number] [place] [address]- 9709 Apr, [facility] [place] [facility] [address] [id number] [place] [address]- 8956 Apr, [facility] [address] [id number] [place] [address]- 9897 Mar, [facility] [address] [id number] [place] [address]- 9027 31 Mar, 2012 [facility] [place] [facility] [address] [id number] [place] [address]- 0296 Mar, [facility] [place] [facility] [address] [id number] [place] [address]- 2006 Mar, [facility] [place] [facility] [address] [id number] [place] [address]- 1056 14 Mar, 2012 [facility] [place] [facility] [address] [id number] [place] [address]- 8526 14 Mar, 2012 [facility] [place] [facility] [address] [id number] [place] [address]- 8576 10 Mar, 2012 [facility] [place] [facility] [address] [id number] [place] [address]- 3285 Mar, [facility] [place] [facility] [address] [id number] [place] [address]- 1161 05 Mar, 2012 [facility] [place] [facility] [address] [id number] [place] [address]- 8633 05 Mar, 2012 [facility] [place] [facility] [address] [id number] [place] [address]- 6528 30 Feb, 2012 [facility] [place] [facility] [address] [id number] [place] [address]- 9884 30 Feb, 2012 [facility] [place] [facility] [address] [id number] [place] [address]- 4100 Feb, [facility] [place] [facility] [address] [id number] [place] [address]- 3008 Feb, [facility] [place] [facility] [address] [id number] [place] [address]- 3316 Feb, [facility] [place] [facility] [address] [id number] [place] [address]- 9286 Feb, [facility] [place] [facility] [address] [id number] [place] [address]- 5688 Feb, [facility] [place] [facility] [address] [id number] [place] [address]- 6129 Feb, [facility] [place] [facility] [address] [id number] [place] [address]- 8435 Feb, [facility] [place] [facility] [address] [id number] [place] [address]- 3992 Feb, [facility] [place] [facility] [address] [id number] [place] [address]- 7720 Jan, [facility] [place] [facility] [address] [id number] [place] [address]- 6267 18 Jan, 2012 [facility] [place] [facility] [address] [id number] [place] [address]- 2587 Jan, [facility] [place] [facility] [address] [id number] [place] [address]- 9073 Jan, [facility] [place] [facility] [address] [id number] [place] [address]- 8068 28 Sep, 2011 [facility] [place] [facility] [address] [id number] [place] [address]- 5200 25 Sep, 2011 [facility] [place] [facility] [address] [id number] [place] [address]- 8926 18 Sep, 2011 [facility] [place] [facility] [address] [id number] [place] [address]- 1852 18 Sep, 2011 [facility] [place] [facility] [address] [id number] [place] [address]- 2545 17 Sep, 2011 [facility] [place] [facility] [address] [id number] [place] [address]- 2545 14 Sep, 2011 [facility] [place] [facility] [address] [id number] [place] [address]- 5558 13 Sep, 2011 [facility] [place] [facility] [address] [id number] [place] [address]- 254 13 Sep, 2011 [facility] [place] [facility] [address] [id number] [place] [address]- 0325 Dec, [facility] [place] [facility] [address] [id number] [place] [address]- 8436 Nov, [facility] [place] [facility] [address] [id number] [place] [address]- 1077 Nov, [facility] [place] [facility] [address] [id number] [place] [address]- 4592 Nov, [facility] [place] [facility] [address] [id number] [place] [address]- 3698 Nov, [facility] [place] [facility] [address] [id number] [place] [address]- 3311 Sep, [facility] [place] [facility] [address] [id number] [place] [address]- 7924 Sep, [facility] [place] [facility] [address] [id number] [place] [address]- 6459 Sep, [facility] [place] [facility] [address] [id number] [place] [address]- 7161 August, [facility] [place] [facility] [address] [id number] [place] [address]- 7522 August, [facility] [place] [facility] [address] [id number] [place] [address]- 7609 August, [facility] [place] [facility] [address] [id number] [place] [address]- 9355 August, [facility] [place] [facility] [address] [id number] [place] [address]- 7778 August, [facility] [place] [facility] [address] [id number] [place] [address]- 4623 August, [facility] [place] [facility] [address] [id number] [place] [address]- 1786 August, [facility] [place] [facility] [address] [id number] [place] [address]261 August, [facility] [place] [facility] [address] [id number] [place] [address]- 8319 August, [facility] [place] [facility] [address] [id number] [place] [address]- 8419 Jul, [facility] [place] [facility] [address] [id number] [place] [address]- 8816 Jun, [facility] [place] [facility] [address] [id number] [place] [address]- 3506 16 Jun, 2011 [facility] [place] [facility] [address] [id number] [place] [address]- 5325 08 Jun, 2011 [facility] [place] [facility] [address] [id number] [place] [address]- 4247 06 Jun, 2011 [facility] [place] [facility] [address] [id number] [place] [address]- 7303 05 Jun, 2011 [facility] [place] [facility] [address] [id number] [place] [address]- 3062 Jun, [facility] [place] [facility] [address] [id number] [place] [address]- 5915 Jun, [facility] [place] [facility] [address] [id number] [place] [address]- 0657 Jun, [facility] [place] [facility] [address] [id number] [place] [address]- 0778 May, [facility] [place] [facility] [address] [id number] [place] [address]- 5865 May, [facility] [place] [facility] [address] [id number] [place] [address]- 8630 May, [facility] [place] [facility] [address] [id number] [place] [address]- 4617 May, [facility] [place] [facility] [address] [id number] [place] [address]- 8996 17 May, 2011 [facility] [place] [facility] [address] [id number] [place] [address]- 2628 16 May, 2011 [facility] [place] [facility] [address] [id number] [place] [address]- 2581 14 May, 2011 [facility] [place] [facility] [address] [id number] [place] [address]- 1544 19 Apr, 2011 [facility] [place] [facility] [address] [id number] [place] [address]- 4004 16 Apr, 2011 [facility] [place] [facility] [address] [id number] [place] [address]- 3251 13 Apr, 2011 [facility] [place] [facility] [address] [id number] [place] [address]- 0630 11 Apr, 2011 [facility] [place] [facility] [address] [id number] [place] [address]- 7451 Apr, [facility] [place] [facility] [address] [id number] [place] [address]- 5643 Apr, [facility] [place] [facility] [address] [id number] [place] [address]- 9295 05 Apr, 2011 [facility] [place] [facility] [address] [id number] [place] [address]- 9258 Apr, [facility] [place] [facility] [address] [id number], [place] [address]- 1626 29 Mar, 2011 [facility] [place] [facility] [address] [id number] [place] [address]- 2390 Mar, [facility] [place] [facility] [address] [id number], [place] [address]- 8828 28 Feb, 2011 [facility] [place] [facility] [address] [id number] [place] [address]- 9335 17 Feb, 2011 [facility] [place] [facility] [address] [id number] [place] [address]- 6056 17 Feb, 2011 [facility] [place] [facility] [address] [id number], [place] [address]- 1087 16 Feb, 2011 [facility] [place] [facility] [address] [id number], [place] [address]- 0725 16 Feb, 2011 [facility] [place] [facility] [address] [id number] [place] [address]- 0169 24 Jan, 2011 [facility] [place] [facility] [address] [id number] [place] [address]- 9917 12 Nov, 2010 [facility] [place] [facility] [address] [id number] [place] [address]- 0043 14 Sep, 2010 [facility] [place] [facility] [address] [id number] [place] [address]- 8387 August, [facility] [place] [facility] [address] [id number] [place] [address]- 3796 Jun, [facility] [place] [facility] [address] [id number] [place] [address]- 0074 14 May, 2010 [facility] [place] [facility] [address] [id number] [place] [address]- 8724 18 Apr, 2010 [facility] [place] [facility] [address] [id number] [place] [address]- 7772 22 Mar, 2010 [facility] [place] [facility] [address] [id number] [place] [address] 14 Mar, 2010 [facility] [place] [facility] [address] [id number] [place] [address] 14 Mar, 2010 [facility] [place] [facility] [address] [id number] [place] [address] 12 Feb, 2010 [facility] [place] [facility] [address] [id number] [place] [address] Feb, [facility] [place] [facility] [address] [id number] [place] [address] 12 Jan, 2010 [facility] [place] [facility] [address] [id number] [place] [address] 11 Jan, 2010 [facility] [place] [facility] [address] [facility] [id number] [place] [address] 11 Jan, 2010 [facility] [place] [facility] [address] [id number] [address] Oct, [facility] [address] [id number] [address] Oct, [facility] [id number] [address] Apr, [facility] [address] [id number] [address] Mar, [facility] [address] [id number] [address] Mar, [facility] [address] [id number] [address] Jan, [facility] [address] [id number] [address] Dec, IMMUNIZATIONS No Known Immunizations SOCIAL HISTORY Never Assessed REASON FOR VISIT PALS IN-Vytorin PLAN OF CARE VITAL SIGNS MEDICATIONS Unknown [...]
--- OUTSIDE RECORDS SUMMARY | 2018-02-13 03:48 | XMS REPORT ---
Author Author NADIYA CARMONA Organization [facility] Address [address] [place] [address] Care Team Providers Care Spiritual Care Coordinator Name Role Phone NADIYA CARMONA Unavailable PROBLEMS Type Condition ICD9-CM Code XFL90-MK Code Onset Dates Condition Status SNOMED Code Problem Asthma J45.909 Active 766754701 Problem Reactive depression F32.9 Active 54107457 Problem Secondary hypertension I15.9 Active 32723680 Problem Open bite of left hand, initial encounter S61.452A Active 319530379 Problem Bitten by cat, initial encounter W55.01XA Active 765509700 Problem Moderate persistent asthma with exacerbation J45.41 Active 942249464 Problem Bronchitis J40 Active 00695055 Problem Simple chronic bronchitis J41.0 Active 24670428 Problem Recurrent major depressive disorder, in full remission F33.42 Active 745029186 Problem Renal failure N19 Active 33055144 Problem Joint pain of left hip on movement M25.552 Active 081128377 Problem Hypercholesterolemia E78.00 Active 60355982 Problem Environmental allergies Z91.09 Active 295464845 Problem PVD (peripheral vascular disease) I73.9 Active 762467062 Problem Diabetes mellitus E11.9 Active 13355456 Problem Proteinuria R80.9 Active 35098161 Problem Insomnia G47.00 Active 541387027 Problem Neuropathy G62.9 Active 904974189 Problem GERD (gastroesophageal reflux disease) K21.9 Active 740490339 ALLERGIES No Information ENCOUNTERS Encounter Location Date Diagnosis [facility] [address], [place] [address] Dec, [facility] [address] [place] [address] 37993- 9657 Dec, Diabetes mellitus E11.9 ; Cervical neuritis M54.12 and Lumbar neuritis M54.16 [facility] [address] [place] [address] 05270- 2530 Dec, [place] [address] [place] [id number] [place] [address] 33738- 7431 Dec, Diabetes mellitus E11.9 [place] [address] [place] [id number] [place] [address] 01510- 9488 Nov, Diabetes mellitus E11.9 [facility] [place] [address] [address]67[address] Oct, Dermatitis due to plants, including poison chris, sumac, and oak L25.[address] [address]65- 1404 Sep, Diabetes mellitus E11.9 and Medication management Z79.[address] 32785- 8190 Sep, [place] [address] 66868- 2529 August, Neuropathy G62.9 [facility] [place] [id number] [place] [address] 89426 -2155 August, Open bite of left hand, initial encounter S61.452A ; Encounter for immunization Z23 and Bitten by cat, initial encounter W55.01XA [place] [id number] [place] [address] 47703- 8721 Jul, Environmental allergies Z91.09 [place] [address] [place] [id number] [place] [address] 31179- 3411 Jun, [place] [address] [place] [id number] [place] [address] 93672- 2783 14 Jun, 2017 Simple chronic bronchitis J41.0 ; PVD (peripheral vascular disease) I73.9 and Recurrent major depressive disorder, in full remission F33.42 [facility] [address] [place] [address] [id number] 13 Jun, 2017 Dental examination Z01.20 [facility] [address] [place] [id number] [place] [address] 00206 -8116 Jun, Moderate persistent asthma with exacerbation J45.41 [facility] [address] 04996- 8665 May, Neuropathy G62.9 and Diabetes mellitus E11.9 [facility] [address] [place] [id number] [place] [address] 93939- 2617 Apr, [facility] [address] 28273 -7178 Apr, Cough R05 [facility] [address] 75521- 8824 Feb, [facility] [address] 90449- 6162 Feb, [facility] [address] 22374- 5996 Feb, Diabetes mellitus E11.9 ; Neuropathy G62.9 ; Joint pain of left hip on movement M25.552 and Encounter for immunization Z23 [facility] [address] 76446- 7714 Feb, [facility] [address] [place] [id number] [place] [address] 92538- 4358 Feb, Diabetes mellitus E11.9 [facility] [address] [place] [id number] [place] [address] 02365- 6956 Feb, [facility] [address] [place] [id number] [place] [address] 07240- 4360 Jan, [facility] [address] [place] [id number] [place] [address] 46904- 6023 Jan, Secondary hypertension I15.9 [facility] [address] [place] [id number] [place] [address] 59947- 0939 Dec, Diabetes mellitus E11.9 [facility] [address] [id number] Nov, Encounter for dental examination Z01.20 [facility] [address] [place] [address] 03296 -9356 Oct, Allergic contact dermatitis due to plants, except food L23.7 [facility] [address] [place] [id number] [place] [address] 39539- 0778 Oct, [facility] [address] 62523- 3303 Oct, Diabetes mellitus E11.9 ; PVD (peripheral vascular disease) I73.9 ; Neuropathy G62.9 ; GERD (gastroesophageal reflux disease) K21.9 ; Insomnia G47.00 ; Environmental allergies Z91.09 ; Secondary hypertension I15.9 ; Reactive depression F32.9 ; Hypercholesterolemia E78.00 and Joint pain of left hip on movement M25.552 [facility] [address] [place] [id number] [place] [address] 27894- 5670 Sep, Diabetes mellitus E11.9 [facility] [address] [place] [id number] [place] [address] 49917- 6145 Sep, Diabetes mellitus E11.9 [facility] [address] [place] [id number] [place] [address] 26932- 9099 Sep, Diabetes mellitus E11.9 [facility] [address] [place] [id number] [place] [address] 68137- 4727 Sep, Neuropathy G62.9 [facility] [address] [place] [id number] [place] [address] 03908- 1254 August, [facility] [address] [place] [id number] [place] [address] 69568- 9783 Jul, [facility] [address] [place] [id number] [place] [address] 86530- 3996 Jun, [facility] [address] [place] [address] 27312- 6505 Jun, Diabetes mellitus E11.9 ; PVD (peripheral vascular disease) I73.9 ; Neuropathy G62.9 ; Joint pain of left hip on movement M25.552 ; Renal failure N19 ; Asthma J45.909 ; Reactive depression F32.9 ; Pure hypercholesterolemia, unspecified E78.00 and Insomnia G47.00 [facility] [address] 45408- 9886 Jun, Joint pain of left hip on movement M25.552 and Diabetes mellitus E11.9 [place] [address] 60627- 6528 Jun, [facility] [address] 93804 -1928 May, Cough R05 and Bronchitis J40 [place] [address] 13871- 5179 May, [place] [address] 85654- 8953 May, [place] [address] 00502- 8915 May, Asthma J45.909 and Bronchitis J40 [place] [address] 48535- 8849 May, [place] [address] 99920- 0425 May, Bronchitis J40 [place] [address] 43202- 3199 May, [place] [address] 77226- 2368 Apr, Diabetes mellitus E11.9 ; PVD (peripheral vascular disease) I73.9 ; GERD (gastroesophageal reflux disease) K21.9 ; Asthma J45.909 ; Insomnia G47.00 ; Environmental allergies Z91.09 ; Secondary hypertension I15.9 ; Joint pain of left hip on movement M25.552 ; Hypercholesterolemia E78.0 and Reactive depression F32.9 [place] [address] [place] [id number] [place] [address] 78329- 5312 14 Mar, 2016 Diabetes mellitus E11.9 ; PVD (peripheral vascular disease) I73.9 and Hypercholesterolemia E78.0 [place] [address] 36487- 4184 14 Mar, 2016 Diabetes mellitus E11.9 and Hypercholesterolemia E78.0 [place] [address] 84601- 4214 Mar, [place] [address] 69574- 5943 Feb, [place] [address] 34595- 0279 Feb, [place] [address] 64543- 3452 Feb, [place] [address] 59456- 6296 Jan, Encounter for immunization Z23 [place] [address] 83259- 8282 Jan, [place] [address] 04871- 7623 Dec, [place] [address] 89551- 1272 06 Dec, 2015 Diabetes mellitus E11.9 ; PVD (peripheral vascular disease) I73.9 ; GERD (gastroesophageal reflux disease) K21.9 ; Insomnia G47.00 ; Joint pain of left hip on movement M25.552 ; Asthma J45.909 ; Environmental allergies Z91.09 ; Hypercholesterolemia E78.0 ; Essential hypertension I10 and Neuropathy G62.9 [place] [address] [place] [id number] [place] [address] 98405- 8330 Nov, [place] [address] 53563- 6178 Nov, [facility] [address] [place] [id number] [place] [address] 18683- 6633 Oct, PVD (peripheral vascular disease) I73.9 and Diabetes mellitus E11.9 [facility] [address] [place] [id number] [place] [address] 08126- 4085 Sep, Diabetes mellitus E11.9 ; PVD (peripheral vascular disease) I73.9 ; Neuropathy G62.9 ; Joint pain of left hip on movement M25.552 ; GERD ( gastroesophageal reflux disease) K21.9 ; Asthma J45.909 ; Insomnia G47.00 ; Secondary hypertension I15.9 and Hypercholesteremia E78.0 [place] [address] 59872- 6798 August, [place] [address] 77677- 7039 August, Neuropathy G62.9 [place] [address] 08928- 1263 August, Neuropathy G62.9 [facility] [address] [place] [id number] [place] [address] 04120- 8179 Jun, Diabetes mellitus E11.9 ; Joint pain of left hip on movement M25.552 ; PVD (peripheral vascular disease) I73.9 ; Neuropathy G62.9 ; GERD (gastroesophageal reflux disease) K21.9 ; Asthma J45.909 ; Insomnia G47.00 ; Environmental allergies Z91.09 ; HTN (hypertension) I10 and Hypercholesteremia E78.0 [place] [address] [place] [id number] [place] [address] 40739- 3028 Jun, [facility] [address] 04033- 1042 Jun, [facility] [address] [place] [id number] [place] [address] 00311- 4066 Jun, [place] [address] 80289- 7794 Apr, [facility] [address] [place] [address] 73577- 2621 Apr, [facility] [address] [place] [id number] [place] [address] 86101- 9616 Apr, Sinusitis J32.9 [facility] [address] [place] [id number] [place] [address] 38334- 3029 Apr, Neuropathy G62.9 [facility] [address] 77787- 9758 Mar, [facility] [address] 30750- 1920 Mar, [facility] [address] [place] [id number] [place] [address] 24354- 7518 Mar, Diabetes mellitus E11.9 ; PVD (peripheral vascular disease) I73.9 ; Neuropathy G62.9 ; GERD (gastroesophageal reflux disease) K21.9 ; Renal failure N19 ; Asthma J45.909 ; Insomnia G47.00 ; Environmental allergies Z91.09 ; Sinusitis J32.9 ; Cough R05 ; Edema R60.9 ; HTN (hypertension) I10 and Hypercholesterolemia E78.0 [facility] [address] [place] [id number] [place] [address] 73160 -3529 Mar, Dysuria R30.0 ; Vomiting, unspecified R11.10 ; Benign essential hypertension I10 and Dizziness R42 [facility] [address] [place] [id number] [place] [address] 27071- 3802 Mar, [facility] [address] [place] [id number] [place] [address] 51591- 9383 Mar, [facility] [address] 33129- 8900 Feb, [facility] [address] [place] [id number] [place] [address] 55492- 1202 Feb, [facility] [address] [place] [address]- 3062 Feb, [facility] [address] [place] [id number] [place] [address] 58350- 4839 Feb, [facility] [address] [place] [id number] [place] [address] 54284- 8468 Feb, Joint pain of left hip on movement M25.552 ; Lumbago M54.5 and UTI (urinary tract infection) N39.0 [facility] [address] [place] [id number] [place] [address] 10838- 5460 Feb, [facility] [address] 59750- 3716 Feb, [facility] [address] [place] [id number] [place] [address] 33684- 3690 Jan, [facility] [address] [place] [id number] [place] [address] 15605- 2032 Jan, [facility] [address] [place] [id number] [place] [address] 63212- 1923 Jan, [facility] [address] [place] [id number] [place] [address] 76741- 6373 Jan, [facility] [address] [place] [id number] [place] [address] 85214- 5185 Jan, 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 [facility] [address] [place] [id number] [place] [address] 90578- 9356 Dec, Hypertension 401.9 and Diabetes 250.00 [facility] [address] [place] [address] 44773- 5662 Dec, Diabetes 250.00 ; Influenza vaccine administered V04.81 ; Unspecified peripheral vascular disease 443.9 ; Issue of repeat prescriptions V68.1 ; Unspecified hereditary and idiopathic peripheral neuropathy 356.9 ; Insomnia, unspecified 780.52 ; Hypercholesteremia 272.0 ; Pain in joint, site unspecified 719.40 ; Dizziness 780.4 and PCV-13 (PREVNAR) DX V03.82 [facility] [address], [place] [address]- 4532 Dec, [facility] [address], [place] [address]- 7441 Dec, [facility] [address], [place] [address]- 8984 Dec, [facility] [address] [place] [id number] [place] [address] 17928- 1989 Dec, [facility] [address] [place] [address] 99014- 7585 Dec, [facility] [address] [place] [id number] [place] [address] 97856- 0747 Dec, [facility] [address] [place] [id number] [place] [address] 43598- 0623 Nov, [facility] [address], [place] [address]- 4626 Nov, Environmental allergies V15.09 ; Sacroiliitis, not elsewhere classified 720.2 and Cough 786.2 [facility] [address], [place] [address]- 6495 Oct, [facility] [address], [place] [address]- 0736 Oct, [facility] [address], [place] [address]- 1768 Oct, [facility] [address], [place] [address]- 4525 Sep, [facility] [address] [place] [id number] [place] [address] 47245- 7081 Sep, [facility] [address], [place] [address]- 0205 Sep, Dysuria 788.1 and Diabetes with other specified manifestations, type II or unspecified type, not stated as uncontrolled 250.80 [facility] [address], [place] [address]- 7930 Sep, [facility] [address] [place] [id number] [place] [address] 86238- 4641 Sep, Diabetes with other specified manifestations, type II or unspecified type, not stated as uncontrolled 250.80 [facility] [address] [place] [id number] [place] [address] 73627- 3453 Sep, DM w/o complication type II 250.00 ; Unspecified peripheral vascular disease 443.9 ; Pain in joint, pelvic region and thigh 719.45 ; Asthma , unspecified, unspecified status 493.90 ; Hypercholesteremia 272.0 ; Fatigue 780.79 ; UTI (lower urinary tract infection) 599.0 and Essential hypertension 401.9 [facility] [address] [place] [id number] [place] [address] 08861- 1627 Sep, [facility] [address] [place] [id number] [place] [address] 87596- 7144 Sep, [facility] [address] [place] [id number] [place] [address] 97001- 2679 Sep, [facility] [address] [place] [id number] [place] [address] 09910- 6485 August, [facility] [address], [place] [address]- 9689 August, [facility] [address] [place] [id number] [place] [address] 19773- 9005 August, Diabetes with other specified manifestations, type II or unspecified type, not stated as uncontrolled 250.80 [facility] [address] [place] [id number] [place] [address] 78120- 1853 Jul, Peripheral vascular disease 443.9 [facility] [address] [place] [address] 13549- 7845 Jul, [facility] [address] [place] [id number] [place] [address] 81476- 1546 13 Jul, 2014 [facility] [place] [facility] [address] [id number] [place] [address]- 9190 27 Jun, 2014 [facility] [place] [facility] [address] [id number] [place] 3571 27 Jun, 2014 [facility] [place] [facility] [address] [facility] [id number] [place] [address]- 5382 14 Jun, 2014 [facility] [place] [facility] [address] [id number] [place] [address]- 6175 13 Jun, 2014 [facility] [place] [facility] [address] [id number] [place] [address]- 8165 Jun, [facility] [place] [facility] [address] [facility] [id number] [place] [address]- 8699 Jun, [facility] [place] [facility] [address] [facility] [id number] [place] [address]- 4274 Jun, [facility] [place] [facility] [address] [id number], [place] [address]- 7877 Jun, [facility] [place] [facility] [address] [facility] [id number] [place] [address]- 8068 Jun, [facility] [place] [facility] [address] [facility] [id number] [place] [address]- 2541 May, [facility] [place] [facility] [address] [id number], [place] [address]- 5036 May, 2014 [facility] [place] [facility] [address] [facility] [id number], [place] [address]- 9117 24 May, 2014 [facility] [place] [facility] [address] [id number] [place] [address]- 5173 18 May, 2014 [facility] [place] [facility] [address] [facility] [id number], [place] [address]- 4681 18 May, 2014 [facility] [place] [facility] [address] [facility] [id number], [place] [address]- 1540 17 May, 2014 [facility] [place] [facility] [address] [id number] [place] [address]- 4187 17 May, 2014 [facility] [place] [facility] [address] [id number] [place] [address]- 4350 May, [facility] [place] [facility] [address] [id number] [place] [address]- 5059 May, 2014 [facility] [place] [facility] [address] [id number] [place] [address]- 1155 May, [facility] [place] [facility] [address] [id number] [place] [address]- 9619 May, [facility] [place] [facility] [address] [id number] [place] [address]- 9772 May, [facility] [place] [facility] [address] [id number] [place] [address]- 4707 May, [facility] [place] [facility] [address] [id number] [place] [address]- 2237 Apr, [facility] [place] [facility] [address] [id number] [place] [address]- 9494 Apr, [facility] [place] [facility] [address] [id number], [place] [address]- 5502 Apr, [facility] [place] [facility] [address] [id number], [place] [address]- 0443 Apr, [facility] [place] [facility] [address] [id number], [place] [address]- 7879 Apr, [facility] [place] [facility] [address] [id number], [place] [address]- 2633 Apr, [facility] [place] [facility] [address] [id number], [place] [address]- 7383 Apr, [facility] [place] [facility] [address] [id number], [place] [address]- 7650 Apr, [facility] [place] [facility] [address] [id number], [place] [address]- 8879 Mar, [facility] [place] [facility] [address] [id number] [place] [address]- 1038 Mar, [facility] [place] [facility] [address] [id number] [place] [address]- 6128 Mar, [facility] [place] [facility] [address] [facility] [id number] [place] [address]- 4786 Mar, [facility] [place] [facility] [address] [id number] [place] [address]- 5102 Mar, [facility] [place] [facility] [address] [id number] [place] [address]- 1382 Mar, [facility] [place] [facility] [address] [id number] [place] [address]- 1181 Mar, [facility] [place] [facility] [address] [facility] [id number] [place] [address]- 4779 Mar, [facility] [place] [facility] [address] [id number] [place] [address]- 7857 Mar, [facility] [place] [facility] [address] [id number] [place] 9347 Mar, [facility] [place] [facility] [address] [facility] [id number] [place] [address]- 4375 Mar, [facility] [place] [facility] [address] [id number] [place] [address]- 4326 Mar, [facility] [place] [facility] [address] [id number] [place] [address]- 8957 Mar, [facility] [place] [facility] [address] [id number] [place] [address]- 5458 Mar, [facility] [place] [facility] [address] [facility] [id number] [place] [address] Feb, [facility] [place] [facility] [address] [facility] [id number] [place] [address] Feb, [facility] [place] [facility] [address] [id number] [place] [address] Feb, [facility] [place] [facility] [address] [id number] [place] [address] Feb, [facility] [place] [facility] [address] [id number] [place] [address] Feb, [facility] [place] [facility] [address] [id number] [place] [address] Feb, [facility] [place] [facility] [address] [id number] [place] [address] Feb, [facility] [place] [facility] [address] [id number] [place] [address] Feb, [facility] [place] [facility] [address] [id number] [place] [address] Feb, [facility] [place] [facility] [address] [id number] [place] [address] Feb, [facility] [place] [facility] [address] [id number] [place] [address] Feb, [facility] [place] [facility] [address] [id number] [place] [address] Feb, [facility] [place] [facility] [address] [id number] [place] [address] Feb, [facility] [place] [facility] [address] [id number] [place] [address] Feb, [facility] [place] [facility] [address] [id number] [place] [address] Feb, [facility] [place] [facility] [address] [id number] [place] [address] Feb, [facility] [place] [facility] [address] [id number] [place] [address] Jan, [facility] [place] [facility] [address] [id number] [place] [address] Jan, [facility] [place] [facility] [address] [id number] [place] [address] Jan, [facility] [place] [facility] [address] [id number] [place] [address] Jan, [facility] [place] [facility] [address] [id number] [place] [address] Jan, [facility] [place] [facility] [address] [id number] [place] [address] Jan, [facility] [place] [facility] [address] [id number] [place] [address] Jan, [facility] [place] [facility] [address] [id number] [place] [address] Jan, [facility] [place] [facility] [address] [id number] [place] [address] Dec, [facility] [place] [facility] [address] [id number] [place] [address] Dec, [facility] [place] [facility] [address] [id number] [place] [address] Nov, [facility] [place] [facility] [address] [id number] [place] [address] Nov, [facility] [place] [facility] [address] [id number] [place] [address] Nov, [facility] [place] [facility] [address] [id number] [place] [address] Nov, [facility] [place] [facility] [address] [id number] [place] [address] 4[address] Nov, [facility] [place] [facility] [address] [id number] [place] [address] 6255 Nov, [facility] [place] [facility] [address] [id number] [place] [address] 8364 Oct, [facility] [place] [facility] [address] [id number] [place] [address] 8170 Oct, [facility] [place] [facility] [address] [id number] [place] [address] 2637 Oct, [facility] [place] [facility] [address] [id number] [place] [address] 0919 Oct, [facility] [place] [facility] [address] [id number] [place] [address] 2858 Sep, [facility] [place] [facility] [address] [id number] [place] [address]- 3658 Sep, [facility] [place] [facility] [address] [id number] [place] [address] 6683 Sep, [facility] [place] [facility] [address] [id number] [place] [address]- 1581 Sep, [facility] [place] [facility] [address] [id number] [place] [address]- 2454 Sep, [facility] [place] [facility] [address] [id number] [place] [address]- 2154 Sep, [facility] [place] [facility] [address] [id number] [place] [address] 6200 August, [facility] [place] [facility] [address] [id number] [place] [address]- 9056 August, [facility] [place] [facility] [address] [id number] [place] [address]- 5725 August, [facility] [place] [facility] [address] [id number] [place] [address]- 7218 August, [facility] [place] [facility] [address] [id number] [place] [address]- 5163 August, [facility] [place] [facility] [address] [id number] [place] [address] 1048 August, [facility] [place] [facility] [address] [id number] [place] [address] August, [facility] [place] [facility] [address] [id number] [place] [address]- 0312 August, [facility] [place] [facility] [address] [id number] [place] [address]- 7702 August, [facility] [place] [facility] [address] [id number] [place] [address]- 8491 August, [facility] [place] [facility] [address] [id number] [place] [address]- 4477 August, [facility] [address] [id number] [place] [address]- 5605 August, [facility] [place] [facility] [address] [id number] [place] [address]- 9845 Jul, [facility] [place] [facility] [address] [id number] [place] [address] 3052 Jul, [facility] [place] [facility] [address] [id number] [place] [address] 6964 Jul, [facility] [place] [facility] [address] [id number] [place] [address]- 6888 Jul, [facility] [place] [facility] [address] [id number] [place] [address]- 6771 Jul, [facility] [place] [facility] [address] [id number] [place] [address]- 9249 Jul, [facility] [place] [facility] [address] [id number] [place] [address]- 5630 Jul, [facility] [place] [facility] [address] [id number] [place] [address]- 5056 Jul, [facility] [place] [facility] [address] [id number] [place] [address]- 3791 Jul, [facility] [place] [facility] [address] [id number] [place] [address]- 8857 Jul, [facility] [place] [facility] [address] [id number] [place] [address]- 2546 Jul, [facility] [place] [facility] [address] [id number] [place] [address]- 0648 Jun, [facility] [place] [facility] [address] [id number] [place] [address]- 9120 31 Jun, 2013 [facility] [place] [facility] [address] [id number] [place] [address]- 9439 Jun, [facility] [place] [facility] [address] [id number] [place] [address]- 7202 Jun, [facility] [place] [facility] [address] [id number] [place] [address]- 0110 Jun, [facility] [place] [facility] [address] [id number] [place] [address]- 7536 Jun, [facility] [place] [facility] [address] [id number] [place] [address]- 4059 Jun, [facility] [place] [facility] [address] [id number] [place] [address]- 6591 Jun, [facility] [place] [facility] [address] [id number] [place] [address]- 9043 Jun, [facility] [place] [facility] [address] [id number] [place] [address]- 4685 May, [facility] [place] [facility] [address] [id number] [place] [address]- 5432 May, [facility] [place] [facility] [address] [id number] [place] [address]- 2067 May, [facility] [place] [facility] [address] [id number] [place] [address] Apr, [facility] [place] [facility] [address] [id number] [place] [address]- 0071 Apr, [facility] [place] [facility] [address] [id number] [place] [address]- 6292 Apr, [facility] [place] [facility] [address] [id number] [place] [address]- 6266 Apr, [facility] [place] [facility] [address] [id number] [place] [address]- 1448 Apr, [facility] [place] [facility] [address] [id number] [place] [address]- 4735 Apr, [facility] [place] [facility] [address] [id number] [place] [address]- 8702 Apr, [facility] [place] [facility] [address] [id number] [place] [address]- 6072 Apr, [facility] [place] [facility] [address] [id number] [place] [address]- 1490 Mar, [facility] [place] [facility] [address] [id number] [place] [address] 1882 Mar, [facility] [place] [facility] [address] [id number] [place] [address]- 1351 Feb, [facility] [place] [facility] [address] [id number] [place] [address]- 1805 Feb, [facility] [place] [facility] [address] [id number] [place] [address]- 5766 Jan, [facility] [place] [facility] [address] [id number] [place] [address]- 2551 Jan, [facility] [place] [facility] [address] [id number] [place] [address]- 4905 Jan, [facility] [place] [facility] [address] [id number] [place] [address]- 3779 Jan, [facility] [place] [facility] [address] [id number] [place] [address]- 4136 Jan, [facility] [place] [facility] [address] [id number] [place] [address]- 8273 Jan, [facility] [place] [facility] [address] [id number] [place] [address]- 8343 Jan, 2012 [facility] [place] [facility] [address] [id number] [place] [address]- 4031 21 Jan, 2012 [facility] [place] [facility] [address] [id number] [place] [address]- 1070 17 Jan, 2012 [facility] [place] [facility] [address] [id number] [place] [address]- 6726 17 Jan, 2012 [facility] [place] [facility] [address] [id number] [place] [address]- 6984 14 Jan, 2012 [facility] [place] [facility] [address] [id number] [place] [address]- 7911 14 Jan, 2012 [facility] [place] [facility] [address] [id number] [place] [address]- 9759 10 Jan, 2012 [facility] [place] [facility] [address] [id number] [place] [address]- 7324 10 Jan, 2012 [facility] [place] [facility] [address] [id number], [place] [address]- 5555 10 Jan, 2012 [facility] [place] [facility] [address] [id number], [place] [address]- 4666 10 Jan, 2012 [facility] [place] [facility] [address] [id number], [place] [address]- 7096 09 Jan, 2012 [facility] [place] [facility] [address] [id number], [place] [address]- 2367 09 Jan, 2012 [facility] [place] [facility] [address] [id number], [place] [address]- 0623 08 Jan, 2012 [facility] [place] [facility] [address] [id number], [place] [address]- 5588 07 Jan, 2012 [facility] [place] [facility] [address] [id number], [place] [address]- 7290 07 Jan, 2012 [facility] [place] [facility] [address] [id number], [place] [address]- 6558 04 Jan, 2012 [facility] [place] [facility] [address] [id number] [place] [address]- 0458 Jan, [facility] [address] [id number] [place] [address]- 1056 Dec, [facility] [place] [facility] [address] [id number] [place] [address]- 3921 Dec, [facility] [address] [id number] [place] [address]- 8501 Nov, [facility] [place] [facility] [address] [id number] [place] [address]- 0571 Oct, [facility] [place] [facility] [address] [id number] [place] [address]- 1399 Oct, [facility] [place] [facility] [address] [id number] [place] [address]- 8404 Oct, [facility] [address] [id number] [place] [address]- 0655 Oct, [facility] [place] [facility] [address] [id number] [place] [address]- 5325 Oct, [facility] [place] [facility] [address] [id number] [place] [address]- 1395 Oct, [facility] [place] [facility] [address] [id number] [place] [address]- 4971 Sep, [facility] [place] [facility] [address] [id number] [place] [address]- 6784 Sep, [facility] [place] [facility] [address] [id number] [place] [address]- 0720 Sep, [facility] [place] [facility] [address] [id number] [place] [address]- 7225 Jul, [facility] [place] [facility] [address] [id number] [place] [address]- 9438 Jul, [facility] [place] [facility] [address] [id number] [place] [address]- 0166 Jul, [facility] [place] [facility] [address] [id number] [place] [address]- 5791 Jun, [facility] [address] [id number] [place] [address]- 7386 Jun, [facility] [place] [facility] [address] [id number] [place] [address]- 7507 Jun, [facility] [address] [id number] [place] [address]- 0370 Jun, [facility] [address] [id number] [place] [address]- 0721 Jun, [facility] [place] [facility] [address] [id number] [place] [address]- 7266 Jun, [facility] [address] [id number] [place] [address]- 7232 May, [facility] [address] [id number] [place] [address]- 7548 May, [facility] [address] [id number] [place] [address]- 1559 Apr, [facility] [address] [id number] [place] [address]- 6372 Apr, [facility] [address] [id number] [place] [address]- 7195 Apr, [facility] [address] [id number] [place] [address]- 7443 Apr, [facility] [place] [facility] [address] [id number] [place] [address]- 3548 Apr, [facility] [place] [facility] [address] [id number] [place] [address]- 4146 Mar, [facility] [place] [facility] [address] [id number] [place] [address]- 7644 Mar, [facility] [place] [facility] [address] [id number] [place] [address]- 9799 Mar, [facility] [place] [facility] [address] [id number] [place] [address]- 5186 Mar, [facility] [place] [facility] [address] [id number] [place] [address]- 5626 Mar, [facility] [place] [facility] [address] [id number] [place] [address]- 3266 Mar, [facility] [place] [facility] [address] [id number] [place] [address]- 0866 Mar, [facility] [place] [facility] [address] [id number] [place] [address]- 3330 Mar, [facility] [place] [facility] [address] [id number] [place] [address]- 3471 Mar, [facility] [place] [facility] [address] [id number] [place] [address]- 7799 Mar, [facility] [place] [facility] [address] [id number] [place] [address]- 8488 Feb, [facility] [place] [facility] [address] [id number] [place] [address]- 8163 Feb, [facility] [place] [facility] [address] [id number] [place] [address]- 8757 Feb, [facility] [place] [facility] [address] [id number] [place] [address]- 9098 Feb, [facility] [place] [facility] [address] [id number] [place] [address]- 3471 Feb, [facility] [place] [facility] [address] [id number] [place] [address]- 7682 Feb, [facility] [place] [facility] [address] [id number] [place] [address]- 0328 Feb, [facility] [place] [facility] [address] [id number] [place] [address]- 7323 Feb, [facility] [place] [facility] [address] [id number] [place] [address]- 4630 Feb, [facility] [place] [facility] [address] [id number] [place] [address]- 3369 Feb, [facility] [place] [facility] [address] [id number] [place] [address]- 6396 18 Jan, 2012 [facility] [place] [facility] [address] [id number] [place] [address]- 7534 Jan, [facility] [place] [facility] [address] [id number] [place] [address]- 9241 Jan, [facility] [place] [facility] [address] [id number] [place] [address]- 9112 Jan, [facility] [place] [facility] [address] [id number] [place] [address]- 2490 28 Dec, 2011 [facility] [place] [facility] [address] [id number] [place] [address]- 4898 25 Sep2011 [facility] [place] [facility] [address] [id number] [place] [address]- 4862 18 Sep2011 [facility] [place] [facility] [address] [id number] [place] [address]- 1723 18 Sep2011 [facility] [place] [facility] [address] [id number] [place] [address]- 4697 17 Sep2011 [facility] [place] [facility] [address] [id number] [place] [address] 2548 14 Sep2011 [facility] [place] [facility] [address] [id number] [place] [address] 2546 13 Sep, 2011 [facility] [place] [facility] [address] [id number] [place] [address] 2546 13 Sep2011 [facility] [place] [facility] [address] [id number] [place] [address]- 2546 06 Sep2011 [facility] [place] [facility] [address] [id number] [place] [address]- 7546 Nov, [facility] [place] [facility] [address] [id number] [place] [address]- 7327 Nov, [facility] [place] [facility] [address] [id number] [place] [address]- 2299 Nov, [facility] [place] [facility] [address] [id number] [place] [address]- 6668 Nov, [facility] [place] [facility] [address] [id number] [place] [address]- 4749 Sep, [facility] [place] [facility] [address] [id number] [place] [address]- 5969 Sep, [facility] [place] [facility] [address] [id number] [place] [address]- 1336 Sep, [facility] [place] [facility] [address] [id number] [place] [address]- 4794 August, [facility] [place] [facility] [address] [id number] [place] [address]- 5191 August, [facility] [place] [facility] [address] [id number] [place] [address]- 2996 August, [facility] [place] [facility] [address] [id number] [place] [address]- 5517 August, [facility] [place] [facility] [address] [id number] [place] [address]- 8913 August, [facility] [place] [facility] [address] [id number] [place] [address]- 9752 August, [facility] [place] [facility] [address] [id number] [place] [address]- 4914 August, [facility] [place] [facility] [address] [id number] [place] [address]- 5055 August, [facility] [place] [facility] [address] [id number] [place] [address]- 3428 August, [facility] [place] [facility] [address] [id number] [place] [address]- 1861 Jul, [facility] [address] [id number] [place] [address]- 8864 19 Jun, 2011 [facility] [place] [facility] [address] [id number] [place] [address]- 5596 16 Jun, 2011 [facility] [place] [facility] [address] [id number] [place] [address]- 0476 08 Jun, 2011 [facility] [place] [facility] [address] [id number] [place] [address]- 8470 06 Jun, 2011 [facility] [place] [facility] [address] [id number] [place] [address]- 6172 05 Jun, 2011 [facility] [place] [facility] [address] [id number] [place] [address]- 4670 04 Jun, 2011 [facility] [place] [facility] [address] [id number] [place] [address]- 1875 02 Jun, 2011 [facility] [place] [facility] [address] [id number] [place] [address]- 4053 Jun, [facility] [place] [facility] [address] [id number] [place] [address]- 9013 27 May, 2011 [facility] [place] [facility] [address] [facility] [id number] [place] [address]- 8486 21 May, 2011 [facility] [place] [facility] [address] [id number] [place] [address]- 6416 20 May, 2011 [facility] [place] [facility] [address] [id number] [place] [address]- 0597 19 May, 2011 [facility] [place] [facility] [address] [id number] [place] [address]- 3061 17 May, 2011 [facility] [place] [facility] [address] [id number] [place] [address] 2546 16 May, 2011 [facility] [place] [facility] [address] [id number] [place] [address]- 4248 14 May, 2011 [facility] [place] [facility] [address] [id number] [place] [address]- 6709 Apr, [facility] [place] [facility] [address] [id number] [place] [address]- 2226 Apr, [facility] [place] [facility] [address] [id number] [place] [address]- 1856 Apr, [facility] [place] [facility] [address] [id number] [place] [address]- 5116 Apr, [facility] [place] [facility] [address] [id number] [place] [address]- 7956 Apr, [facility] [place] [facility] [address] [id number] [place] [address]- 8216 Apr, [facility] [place] [facility] [address] [id number] [place] [address]- 9656 Apr, [facility] [place] [facility] [address] [id number] [place] [address]- 4826 Apr, [facility] [place] [facility] [address] [id number] [place] [address]- 4985 Mar, [facility] [place] [facility] [address] [id number], [place] [address]- 9536 Mar, [facility] [place] [facility] [address] [id number], [place] [address] 28 Feb, 2011 [facility] [place] [facility] [address] [id number], [place] [address] 17 Feb, 2011 [facility] [place] [facility] [address] [id number] [place] [address] 17 Feb, 2011 [facility] [place] [facility] [address] [id number], [place] [address] 16 Feb, 2011 [facility] [place] [facility] [address] [id number], [place] [address] 16 Feb, 2011 [facility] [place] [facility] [address] [id number], [place] [address] 24 Jan, 2011 [facility] [place] [facility] [address] [id number] [place] [address] Nov, [facility] [place] [facility] [address] [id number] [place] [address] 14 Sep, 2010 [facility] [place] [facility] [address] [id number] [place] [address] August, [facility] [place] [facility] [address] [id number] [place] [address] 16 Jun, 2010 [facility] [place] [facility] [address] [id number] [place] [address] 14 May, 2010 [facility] [place] [facility] [address] [id number] [place] [address] Apr, [facility] [place] [facility] [address] [id number] [place] [address] Mar, [facility] [place] [facility] [address] [id number] [place] [address] 14 Mar, 2010 [facility] [place] [facility] [address] [id number] [place] [address] 14 Mar, 2010 [facility] [place] [facility] [address] [id number] [place] [address] Feb, [facility] [place] [facility] [address] [id number] [place] [address] Feb, [facility] [place] [facility] [address] [id number] [place] [address] Jan, [facility] [place] [facility] [address] [id number] [place] [address] Jan, [facility] [place] [facility] [address] [id number] [place] [address] Jan, [facility] [place] [facility] [address] [id number] [place] [address] Oct, [facility] [place] [facility] [address] [facility] [id number], [place] [address] Oct, [facility] [address] [facility] [id number], [place] [address] Apr, [facility] [address] [id number], [place] [address] Mar, [facility] [address] [facility] [id number], [place] [address] Mar, [facility] [address] [facility] [id number], [place] [address] Jan, [facility] [address] [facility] [id number], [place] [address] Dec, IMMUNIZATIONS No Known Immunizations SOCIAL HISTORY Never Assessed REASON FOR VISIT med refill PLAN OF CARE VITAL SIGNS MEDICATIONS Medication Instructions Dosage Frequency Start Date End Date Duration Status Diclofenac Sodium [address]MG [address] Orally Three times a day 1 tablet 8h Active RESULTS No Results PROCEDURES No Known procedures [...]
--- OUTSIDE RECORDS SUMMARY | 2018-02-13 03:49 | XMS REPORT ---
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 Name Role Phone NADIYA CARMONA Unavailable PROBLEMS Type Condition ICD9-CM Code ILF69-XB Code Onset Dates Condition Status SNOMED Code Problem Asthma J45.909 Active 189235708 Problem Reactive depression F32.9 Active 86477940 Problem Secondary hypertension I15.9 Active 77426966 Problem Open bite of left hand, initial encounter S61.452A Active 646950993 Problem Bitten by cat, initial encounter W55.01XA Active 362756591 Problem Moderate persistent asthma with exacerbation J45.41 Active 224333050 Problem Bronchitis J40 Active 62001912 Problem Simple chronic bronchitis J41.0 Active 14496181 Problem Recurrent major depressive disorder, in full remission F33.42 Active 782782339 Problem Renal failure N19 Active 15695206 Problem Joint pain of left hip on movement M25.552 Active 511186189 Problem Hypercholesterolemia E78.00 Active 04612189 Problem Environmental allergies Z91.09 Active 418133949 Problem PVD (peripheral vascular disease) I73.9 Active 867147536 Problem Diabetes mellitus E11.9 Active 62501577 Problem Proteinuria R80.9 Active 02447407 Problem Insomnia G47.00 Active 455574130 Problem Neuropathy G62.9 Active 140747911 Problem GERD (gastroesophageal reflux disease) K21.9 Active 069727508 ALLERGIES No Information ENCOUNTERS Encounter Location Date Diagnosis [facility] [address] [address] Dec, [facility] [id number] [place] [address] 68064- 0943 Dec, Diabetes mellitus E11.9 ; Cervical neuritis M54.12 and Lumbar neuritis M54.16 [facility] [id number] [place] [address] 74462- 5635 Dec, [place] [address] [place] [id number] [place] [address] 51098- 4393 Dec, Diabetes mellitus E11.9 [place] [address] [place] [id number] [place] [address] 99451- 6076 Nov, Diabetes mellitus E11.9 [facility] [place] [address] [address] -7077 Oct, Dermatitis due to plants, including poison chris, sumac, and oak L25.[address] 67298- 6728 Sep, Diabetes mellitus E11.9 and Medication management Z79.[address] 57745- 7422 Sep, [place] [address] 34093- 8042 August, Neuropathy G62.9 [facility] [place] [id number] [place] [address] 46846 -7154 August, Open bite of left hand, initial encounter S61.452A ; Encounter for immunization Z23 and Bitten by cat, initial encounter W55.01XA [place] [id number] [place] [address] 57365- 6694 Jul, Environmental allergies Z91.09 [place] [address] [place] [id number] [place] [address] 96743- 4739 Jun, [place] [address] [place] [id number] [place] [address] 15643- 9862 14 Jun, 2017 Simple chronic bronchitis J41.0 ; PVD (peripheral vascular disease) I73.9 and Recurrent major depressive disorder, in full remission F33.42 [facility] [address] [place] [address] [id number] 13 Jun, 2017 Dental examination Z01.20 [facility] [address] [place] [id number] [place] [address] 46522 -8758 Jun, Moderate persistent asthma with exacerbation J45.41 [facility] [address] 66672- 8772 May, Neuropathy G62.9 and Diabetes mellitus E11.9 [facility] [address] [place] [id number] [place] [address] 07807- 9915 Apr, [facility] [address] 37022 -2553 Apr, Cough R05 [facility] [address] 35208- 0268 Feb, [facility] [address] 61029- 6845 Feb, [facility] [address] 72872- 6030 Feb, Diabetes mellitus E11.9 ; Neuropathy G62.9 ; Joint pain of left hip on movement M25.552 and Encounter for immunization Z23 [facility] [address] 50826- 4678 Feb, [facility] [address] [place] [id number] [place] [address] 65766- 7168 Feb, Diabetes mellitus E11.9 [facility] [address] [place] [id number] [place] [address] 11400- 3082 Feb, [facility] [address] [place] [id number] [place] [address] 92156- 1995 Jan, [facility] [address] [place] [id number] [place] [address] 83965- 8173 Jan, Secondary hypertension I15.9 [facility] [address] [place] [id number] [place] [address] 19678- 6200 Dec, Diabetes mellitus E11.9 [facility] [address] [id number] Nov, Encounter for dental examination Z01.20 [facility] [address] [place] [address] 93039 -2804 Oct, Allergic contact dermatitis due to plants, except food L23.7 [facility] [address] [place] [id number] [place] [address] 41650- 5562 Oct, [facility] [address] 49757- 3697 Oct, Diabetes mellitus E11.9 ; PVD (peripheral vascular disease) I73.9 ; Neuropathy G62.9 ; GERD (gastroesophageal reflux disease) K21.9 ; Insomnia G47.00 ; Environmental allergies Z91.09 ; Secondary hypertension I15.9 ; Reactive depression F32.9 ; Hypercholesterolemia E78.00 and Joint pain of left hip on movement M25.552 [facility] [address] [place] [id number] [place] [address] 38322- 8564 Sep, Diabetes mellitus E11.9 [facility] [address] [place] [id number] [place] [address] 59749- 2415 Sep, Diabetes mellitus E11.9 [facility] [address] [place] [id number] [place] [address] 15280- 2225 Sep, Diabetes mellitus E11.9 [facility] [address] [place] [id number] [place] [address] 65378- 4617 Sep, Neuropathy G62.9 [facility] [address] [place] [id number] [place] [address] 80522- 8415 August, [facility] [address] [place] [id number] [place] [address] 48878- 7350 Jul, [facility] [address] [place] [id number] [place] [address] 15539- 1856 Jun, [facility] [address] [place] [address] 30810- 0408 Jun, Diabetes mellitus E11.9 ; PVD (peripheral vascular disease) I73.9 ; Neuropathy G62.9 ; Joint pain of left hip on movement M25.552 ; Renal failure N19 ; Asthma J45.909 ; Reactive depression F32.9 ; Pure hypercholesterolemia, unspecified E78.00 and Insomnia G47.00 [facility] [address] 50790- 2824 Jun, Joint pain of left hip on movement M25.552 and Diabetes mellitus E11.9 [place] [address] 45463- 8715 Jun, [facility] [address] 79395 -0447 May, Cough R05 and Bronchitis J40 [place] [address] 80063- 7637 May, [place] [address] 01737- 9088 May, [place] [address] 02734- 5794 May, Asthma J45.909 and Bronchitis J40 [place] [address] 84905- 0667 May, [place] [address] 02141- 5712 May, Bronchitis J40 [place] [address] 37656- 0077 May, [place] [address] 25812- 4052 Apr, Diabetes mellitus E11.9 ; PVD (peripheral vascular disease) I73.9 ; GERD (gastroesophageal reflux disease) K21.9 ; Asthma J45.909 ; Insomnia G47.00 ; Environmental allergies Z91.09 ; Secondary hypertension I15.9 ; Joint pain of left hip on movement M25.552 ; Hypercholesterolemia E78.0 and Reactive depression F32.9 [place] [address] [place] [id number] [place] [address] 59599- 6294 14 Mar, 2016 Diabetes mellitus E11.9 ; PVD (peripheral vascular disease) I73.9 and Hypercholesterolemia E78.0 [place] [address] 93043- 1259 14 Mar, 2016 Diabetes mellitus E11.9 and Hypercholesterolemia E78.0 [place] [address] 09390- 7300 Mar, [place] [address] 68913- 8617 Feb, [place] [address] 69623- 6125 Feb, [place] [address] 81357- 0093 Feb, [place] [address] 37729- 0469 Jan, Encounter for immunization Z23 [place] [address] 60485- 8879 Jan, [place] [address] 04658- 6186 Dec, [place] [address] 77670- 6977 06 Dec, 2015 Diabetes mellitus E11.9 ; PVD (peripheral vascular disease) I73.9 ; GERD (gastroesophageal reflux disease) K21.9 ; Insomnia G47.00 ; Joint pain of left hip on movement M25.552 ; Asthma J45.909 ; Environmental allergies Z91.09 ; Hypercholesterolemia E78.0 ; Essential hypertension I10 and Neuropathy G62.9 [place] [address] [place] [id number] [place] [address] 52321- 4081 Nov, [place] [address] 14476- 9222 Nov, [facility] [address] [place] [id number] [place] [address] 91682- 8457 Oct, PVD (peripheral vascular disease) I73.9 and Diabetes mellitus E11.9 [facility] [address] [place] [id number] [place] [address] 68521- 3016 Sep, Diabetes mellitus E11.9 ; PVD (peripheral vascular disease) I73.9 ; Neuropathy G62.9 ; Joint pain of left hip on movement M25.552 ; GERD ( gastroesophageal reflux disease) K21.9 ; Asthma J45.909 ; Insomnia G47.00 ; Secondary hypertension I15.9 and Hypercholesteremia E78.0 [place] [address] 76690- 5035 August, [place] [address] 94561- 8268 August, Neuropathy G62.9 [place] [address] 71249- 6734 August, Neuropathy G62.9 [facility] [address] [place] [id number] [place] [address] 47865- 6864 Jun, Diabetes mellitus E11.9 ; Joint pain of left hip on movement M25.552 ; PVD (peripheral vascular disease) I73.9 ; Neuropathy G62.9 ; GERD (gastroesophageal reflux disease) K21.9 ; Asthma J45.909 ; Insomnia G47.00 ; Environmental allergies Z91.09 ; HTN (hypertension) I10 and Hypercholesteremia E78.0 [place] [address] [place] [id number] [place] [address] 82220- 3825 Jun, [facility] [address] 69138- 4962 Jun, [facility] [address] [place] [id number] [place] [address] 83122- 3355 Jun, [place] [address] 95655- 4256 Apr, [facility] [address] [place] [address] 83715- 3395 Apr, [facility] [address] [place] [id number] [place] [address] 89266- 1775 Apr, Sinusitis J32.9 [facility] [address] [place] [id number] [place] [address] 26145- 9699 Apr, Neuropathy G62.9 [facility] [address] 84614- 4730 Mar, [facility] [address] 57006- 2288 Mar, [facility] [address] [place] [id number] [place] [address] 84722- 4672 Mar, Diabetes mellitus E11.9 ; PVD (peripheral vascular disease) I73.9 ; Neuropathy G62.9 ; GERD (gastroesophageal reflux disease) K21.9 ; Renal failure N19 ; Asthma J45.909 ; Insomnia G47.00 ; Environmental allergies Z91.09 ; Sinusitis J32.9 ; Cough R05 ; Edema R60.9 ; HTN (hypertension) I10 and Hypercholesterolemia E78.0 [facility] [address] [place] [id number] [place] [address] 12168 -2003 Mar, Dysuria R30.0 ; Vomiting, unspecified R11.10 ; Benign essential hypertension I10 and Dizziness R42 [facility] [address] [place] [id number] [place] [address] 20372- 2389 Mar, [facility] [address] [place] [id number] [place] [address] 47488- 7777 Mar, [facility] [address] 68080- 0346 Feb, [facility] [address] [place] [id number] [place] [address] 35548- 4577 Feb, [facility] [address] [place] [address]- 3137 Feb, [facility] [address] [place] [id number] [place] [address] 70455- 6931 Feb, [facility] [address] [place] [id number] [place] [address] 98667- 4333 Feb, Joint pain of left hip on movement M25.552 ; Lumbago M54.5 and UTI (urinary tract infection) N39.0 [facility] [address] [place] [id number] [place] [address] 75744- 8472 Feb, [facility] [address] 59251- 2820 Feb, [facility] [address] [place] [id number] [place] [address] 91169- 4641 Jan, [facility] [address] [place] [id number] [place] [address] 91854- 4013 Jan, [facility] [address] [place] [id number] [place] [address] 65305- 1701 Jan, [facility] [address] [place] [id number] [place] [address] 82070- 5074 Jan, [facility] [address] [place] [id number] [place] [address] 55655- 7031 Jan, 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 [facility] [address] [place] [id number] [place] [address] 16696- 1930 Dec, Hypertension 401.9 and Diabetes 250.00 [facility] [address] [place] [address] 14527- 3814 Dec, Diabetes 250.00 ; Influenza vaccine administered V04.81 ; Unspecified peripheral vascular disease 443.9 ; Issue of repeat prescriptions V68.1 ; Unspecified hereditary and idiopathic peripheral neuropathy 356.9 ; Insomnia, unspecified 780.52 ; Hypercholesteremia 272.0 ; Pain in joint, site unspecified 719.40 ; Dizziness 780.4 and PCV-13 (PREVNAR) DX V03.82 [facility] [address], [place] [address]- 3993 Dec, [facility] [address] [place] [address]- 5955 Dec, [facility] [address], [place] [address]- 3908 Dec, [facility] [address] [place] [id number] [place] [address] 86996- 6390 Dec, [facility] [address] [place] [address] 19291- 6614 Dec, [facility] [address] [place] [id number] [place] [address] 96760- 7178 Dec, [facility] [address] [place] [id number] [place] [address] 90082- 5439 Nov, [facility] [address], [place] [address]- 6648 Nov, Environmental allergies V15.09 ; Sacroiliitis, not elsewhere classified 720.2 and Cough 786.2 [facility] [address], [place] [address]- 3223 Oct, [facility] [address], [place] [address]- 3675 Oct, [facility] [address], [place] [address]- 6854 Oct, [facility] [address], [place] [address]- 4342 Sep, [facility] [address] [place] [id number] [place] [address] 94272- 2848 Sep, [facility] [address], [place] [address]- 6177 Sep, Dysuria 788.1 and Diabetes with other specified manifestations, type II or unspecified type, not stated as uncontrolled 250.80 [facility] [address], [place] [address]- 8145 Sep, [facility] [address] [place] [id number] [place] [address] 76000- 6139 Sep, Diabetes with other specified manifestations, type II or unspecified type, not stated as uncontrolled 250.80 [facility] [address] [place] [id number] [place] [address] 90781- 1842 Sep, DM w/o complication type II 250.00 ; Unspecified peripheral vascular disease 443.9 ; Pain in joint, pelvic region and thigh 719.45 ; Asthma , unspecified, unspecified status 493.90 ; Hypercholesteremia 272.0 ; Fatigue 780.79 ; UTI (lower urinary tract infection) 599.0 and Essential hypertension 401.9 [facility] [address] [place] [id number] [place] [address] 71757- 9673 Sep, [facility] [address] [place] [id number] [place] [address] 00873- 3748 Sep, [facility] [address] [place] [id number] [place] [address] 10328- 6662 Sep, [facility] [address] [place] [id number] [place] [address] 59383- 2630 August, [facility] [address], [place] [address]- 4838 August, [facility] [address] [place] [id number] [place] [address] 94465- 8737 August, Diabetes with other specified manifestations, type II or unspecified type, not stated as uncontrolled 250.80 [facility] [address] [place] [id number] [place] [address] 11276- 3410 Jul, Peripheral vascular disease 443.9 [facility] [address] [place] [address] 94287- 9150 Jul, [facility] [address] [place] [id number] [place] [address] 71292- 9096 13 Jul, 2014 [facility] [place] [facility] [address] [id number] [place] [address]- 1460 27 Jun, 2014 [facility] [place] [facility] [address] [id number] [place] 4302 27 Jun, 2014 [facility] [place] [facility] [address] [facility] [id number] [place] [address]- 0641 14 Jun, 2014 [facility] [place] [facility] [address] [id number] [place] [address]- 1504 13 Jun, 2014 [facility] [place] [facility] [address] [id number] [place] [address]- 4598 Jun, [facility] [place] [facility] [address] [facility] [id number] [place] [address]- 6100 Jun, [facility] [place] [facility] [address] [facility] [id number] [place] [address]- 0664 Jun, [facility] [place] [facility] [address] [id number], [place] [address]- 1955 Jun, [facility] [place] [facility] [address] [facility] [id number] [place] [address]- 9415 Jun, [facility] [place] [facility] [address] [facility] [id number] [place] [address]- 1794 May, [facility] [place] [facility] [address] [id number], [place] [address]- 4521 May, 2014 [facility] [place] [facility] [address] [facility] [id number], [place] [address]- 9135 24 May, 2014 [facility] [place] [facility] [address] [id number] [place] [address]- 2384 18 May, 2014 [facility] [place] [facility] [address] [facility] [id number], [place] [address]- 3732 18 May, 2014 [facility] [place] [facility] [address] [facility] [id number], [place] [address]- 1674 17 May, 2014 [facility] [place] [facility] [address] [id number] [place] [address]- 1610 17 May, 2014 [facility] [place] [facility] [address] [id number] [place] [address]- 5529 May, [facility] [place] [facility] [address] [id number] [place] [address]- 5811 May, 2014 [facility] [place] [facility] [address] [id number] [place] [address]- 9752 May, [facility] [place] [facility] [address] [id number] [place] [address]- 6280 May, [facility] [place] [facility] [address] [id number] [place] [address]- 5864 May, [facility] [place] [facility] [address] [id number] [place] [address]- 7179 May, [facility] [place] [facility] [address] [id number] [place] [address]- 2802 Apr, [facility] [place] [facility] [address] [id number] [place] [address]- 6883 Apr, [facility] [place] [facility] [address] [id number], [place] [address]- 3649 Apr, [facility] [place] [facility] [address] [id number], [place] [address]- 0333 Apr, [facility] [place] [facility] [address] [id number], [place] [address]- 4212 Apr, [facility] [place] [facility] [address] [id number], [place] [address]- 3491 Apr, [facility] [place] [facility] [address] [id number], [place] [address]- 9614 Apr, [facility] [place] [facility] [address] [id number], [place] [address]- 7617 Apr, [facility] [place] [facility] [address] [id number], [place] [address]- 1267 Mar, [facility] [place] [facility] [address] [id number] [place] [address]- 0185 Mar, [facility] [place] [facility] [address] [id number] [place] [address]- 5706 Mar, [facility] [place] [facility] [address] [facility] [id number] [place] [address]- 4676 Mar, [facility] [place] [facility] [address] [id number] [place] [address]- 3002 Mar, [facility] [place] [facility] [address] [id number] [place] [address]- 7966 Mar, [facility] [place] [facility] [address] [id number] [place] [address]- 7750 Mar, [facility] [place] [facility] [address] [facility] [id number] [place] [address]- 0585 Mar, [facility] [place] [facility] [address] [id number] [place] [address]- 0184 Mar, [facility] [place] [facility] [address] [id number] [id number] [address] Mar, [facility] [place] [facility] [address] [facility] [id number] [place] [address] Mar, [facility] [place] [facility] [address] [id number] [place] [address] Mar, [facility] [place] [facility] [address] [id number] [place] [address] Mar, [facility] [place] [facility] [address] [id number] [place] [address] Mar, [facility] [place] [facility] [address] [facility] [id number] [place] [address] Feb, [facility] [place] [facility] [address] [facility] [id number] [place] [address] 1984 Feb, [facility] [place] [facility] [address] [id number] [place] [address] Feb, [facility] [place] [facility] [address] [id number] [place] [address] Feb, [facility] [place] [facility] [address] [id number] [place] [address] Feb, [facility] [place] [facility] [address] [id number] [place] [address]- [address] Feb, [facility] [place] [facility] [address] [id number] [place] [address]- [address] Feb, [facility] [place] [facility] [address] [id number] [place] [address] Feb, [facility] [place] [facility] [address] [id number] [place] [address] Feb, [facility] [place] [facility] [address] [id number] [place] [address]- [address] Feb, [facility] [place] [facility] [address] [id number] [place] [address]- [address] Feb, [facility] [place] [facility] [address] [id number] [place] [address]- [address] Feb, [facility] [place] [facility] [address] [id number] [place] [address]- [address] Feb, [facility] [place] [facility] [address] [id number] [place] [address]- [address] Feb, [facility] [place] [facility] [address] [id number] [place] [address]- [address] Feb, [facility] [place] [facility] [address] [id number] [place] [address]- [address] Feb, [facility] [place] [facility] [address] [id number] [place] [address]- [address] Jan, [facility] [place] [facility] [address] [id number] [place] [address]- [address] Jan, [facility] [place] [facility] [address] [id number] [place] [address]- [address] Jan, [facility] [place] [facility] [address] [id number] [place] [address]- [address] Jan, [facility] [place] [facility] [address] [id number] [place] [address]- [address] Jan, [facility] [place] [facility] [address] [id number] [place] [address]- [address] Jan, [facility] [place] [facility] [address] [id number] [place] [address]- [address] Jan, [facility] [place] [facility] [address] [id number] [place] [address] Jan, [facility] [place] [facility] [address] [id number] [place] [address] Dec, [facility] [place] [facility] [address] [id number] [place] [address] Dec, [facility] [place] [facility] [address] [id number] [place] [address] Nov, [facility] [place] [facility] [address] [id number] [place] [address] Nov, [facility] [place] [facility] [address] [id number] [place] [address] Nov, [facility] [place] [facility] [address] [id number] [place] [address] Nov, [facility] [place] [facility] [address] [id number] [place] [address] 7822 Nov, [facility] [place] [facility] [address] [id number] [place] [address]874 Nov, [facility] [place] [facility] [address] [id number] [place] [address] 9705 Oct, [facility] [place] [facility] [address] [id number] [place] [address]- 9817 Oct, [facility] [place] [facility] [address] [id number] [place] [address]- 3948 Oct, [facility] [place] [facility] [address] [id number] [place] [address]- 3377 Oct, [facility] [place] [facility] [address] [id number] [place] [address]- 2590 Sep, [facility] [place] [facility] [address] [id number] [place] [address]- 2667 Sep, [facility] [place] [facility] [address] [id number] [place] [address]- 1558 Sep, [facility] [place] [facility] [address] [id number] [place] [address]- 5176 Sep, [facility] [place] [facility] [address] [id number] [place] [address]- 0842 Sep, [facility] [place] [facility] [address] [id number] [place] [address]- 8290 Sep, [facility] [place] [facility] [address] [id number] [place] [address]- 1516 August, [facility] [place] [facility] [address] [id number] [place] [address]- 2379 August, [facility] [place] [facility] [address] [id number] [place] [address]- 6375 August, [facility] [place] [facility] [address] [id number] [place] [address]- 5187 August, [facility] [place] [facility] [address] [id number] [place] [address]- 9280 August, [facility] [place] [facility] [address] [id number] [place] [address]- 7770 August, [facility] [place] [facility] [address] [id number] [place] [address] August, [facility] [place] [facility] [address] [id number] [place] [address]- 3894 August, [facility] [place] [facility] [address] [id number] [place] [address]- 0108 August, [facility] [place] [facility] [address] [id number] [place] [address]- 6499 August, [facility] [place] [facility] [address] [id number] [place] [address]- 9964 August, [facility] [address] [id number] [place] [address]- 3474 August, [facility] [place] [facility] [address] [id number] [place] [address]- 3238 Jul, [facility] [place] [facility] [address] [id number] [place] [address]- 1504 Jul, [facility] [place] [facility] [address] [id number] [place] [address]- 2763 Jul, [facility] [place] [facility] [address] [id number] [place] [address]- 8584 Jul, [facility] [place] [facility] [address] [id number] [place] [address]- 6162 Jul, [facility] [place] [facility] [address] [id number] [place] [address]- 9903 Jul, [facility] [place] [facility] [address] [id number] [place] [address]- 4557 Jul, [facility] [place] [facility] [address] [id number] [place] [address]- 9264 Jul, [facility] [place] [facility] [address] [id number] [place] [address]- 9270 Jul, [facility] [place] [facility] [address] [id number] [place] [address]- 0026 Jul, [facility] [place] [facility] [address] [id number] [place] [address]- 2546 Jul, [facility] [place] [facility] [address] [id number] [place] [address]- 0750 Jun, [facility] [place] [facility] [address] [id number] [place] [address]- 7186 31 Jun, 2013 [facility] [place] [facility] [address] [id number] [place] [address]- 8785 Jun, [facility] [place] [facility] [address] [id number] [place] [address]- 9333 Jun, [facility] [place] [facility] [address] [id number] [place] [address]- 0256 Jun, [facility] [place] [facility] [address] [id number] [place] [address]- 7478 Jun, [facility] [place] [facility] [address] [id number] [place] [address]- 3666 Jun, [facility] [place] [facility] [address] [id number] [place] [address]- 5351 Jun, [facility] [place] [facility] [address] [id number] [place] [address]- 0856 Jun, [facility] [place] [facility] [address] [id number] [place] [address]- 3678 May, [facility] [place] [facility] [address] [id number] [place] [address]- 6558 May, [facility] [place] [facility] [address] [id number] [place] [address]- 6751 May, [facility] [place] [facility] [address] [id number] [place] [address] Apr, [facility] [place] [facility] [address] [id number] [place] [address]- 0844 Apr, [facility] [place] [facility] [address] [id number] [place] [address]- 8367 Apr, [facility] [place] [facility] [address] [id number] [place] [address]- 6934 Apr, [facility] [place] [facility] [address] [id number] [place] [address]- 5623 Apr, [facility] [place] [facility] [address] [id number] [place] [address]- 2355 Apr, [facility] [place] [facility] [address] [id number] [place] [address]- 7383 Apr, [facility] [place] [facility] [address] [id number] [place] [address]- 7660 Apr, [facility] [place] [facility] [address] [id number] [place] [address]- 1709 Mar, [facility] [place] [facility] [address] [id number] [place] [address]- 4597 Mar, [facility] [place] [facility] [address] [id number] [place] [address]- 9977 Feb, [facility] [place] [facility] [address] [id number] [place] [address]- 2901 Feb, [facility] [place] [facility] [address] [id number] [place] [address]- 4954 Jan, [facility] [place] [facility] [address] [id number] [place] [address]- 1697 Jan, [facility] [place] [facility] [address] [id number] [place] [address]- 8300 Jan, [facility] [place] [facility] [address] [id number] [place] [address]- 5564 Jan, [facility] [place] [facility] [address] [id number] [place] [address]- 6299 Jan, [facility] [place] [facility] [address] [id number] [place] [address]- 0364 Jan, [facility] [place] [facility] [address] [id number] [place] [address]- 6665 Jan, 2012 [facility] [place] [facility] [address] [id number] [place] [address]- 8254 21 Jan, 2012 [facility] [place] [facility] [address] [id number] [place] [address]- 5014 17 Jan, 2012 [facility] [place] [facility] [address] [id number] [place] [address]- 3978 17 Jan, 2012 [facility] [place] [facility] [address] [id number] [place] [address]- 7843 14 Jan, 2012 [facility] [place] [facility] [address] [id number] [place] [address]- 0717 14 Jan, 2012 [facility] [place] [facility] [address] [id number] [place] [address]- 8880 10 Jan, 2012 [facility] [place] [facility] [address] [id number] [place] [address]- 0428 10 Jan, 2012 [facility] [place] [facility] [address] [id number], [place] [address]- 5093 10 Jan, 2012 [facility] [place] [facility] [address] [id number], [place] [address]- 0881 10 Jan, 2012 [facility] [place] [facility] [address] [id number], [place] [address]- 2129 09 Jan, 2012 [facility] [place] [facility] [address] [id number], [place] [address]- 7777 09 Jan, 2012 [facility] [place] [facility] [address] [id number], [place] [address]- 3798 08 Jan, 2012 [facility] [place] [facility] [address] [id number], [place] [address]- 7474 07 Jan, 2012 [facility] [place] [facility] [address] [id number], [place] [address]- 1690 07 Jan, 2012 [facility] [place] [facility] [address] [id number], [place] [address]- 8666 04 Jan, 2012 [facility] [place] [facility] [address] [id number] [place] [address]- 4587 Jan, [facility] [address] [id number] [place] [address]- 7685 Dec, [facility] [place] [facility] [address] [id number] [place] [address]- 0662 Dec, [facility] [address] [id number] [place] [address]- 0462 Nov, [facility] [place] [facility] [address] [id number] [place] [address]- 8852 Oct, [facility] [place] [facility] [address] [id number] [place] [address]- 8889 Oct, [facility] [place] [facility] [address] [id number] [place] [address]- 7185 Oct, [facility] [address] [id number] [place] [address]- 5007 Oct, [facility] [place] [facility] [address] [id number] [place] [address]- 2751 Oct, [facility] [place] [facility] [address] [id number] [place] [address]- 9448 Oct, [facility] [place] [facility] [address] [id number] [place] [address]- 5460 Sep, [facility] [place] [facility] [address] [id number] [place] [address]- 7906 Sep, [facility] [place] [facility] [address] [id number] [place] [address]- 6267 Sep, [facility] [place] [facility] [address] [id number] [place] [address]- 2368 Jul, [facility] [place] [facility] [address] [id number] [place] [address]- 5704 Jul, [facility] [place] [facility] [address] [id number] [place] [address]- 1815 Jul, [facility] [place] [facility] [address] [id number] [place] [address]- 7673 Jun, [facility] [address] [id number] [place] [address]- 4569 Jun, [facility] [place] [facility] [address] [id number] [place] [address]- 4641 Jun, [facility] [address] [id number] [place] [address]- 0434 Jun, [facility] [address] [id number] [place] [address]- 4856 Jun, [facility] [place] [facility] [address] [id number] [place] [address]- 1171 Jun, [facility] [address] [id number] [place] [address]- 2029 May, [facility] [address] [id number] [place] [address]- 6393 May, [facility] [address] [id number] [place] [address]- 7947 Apr, [facility] [address] [id number] [place] [address]- 3344 Apr, [facility] [address] [id number] [place] [address]- 5365 Apr, [facility] [address] [id number] [place] [address]- 3926 Apr, [facility] [place] [facility] [address] [id number] [place] [address]- 6543 Apr, [facility] [place] [facility] [address] [id number] [place] [address]- 3776 Mar, [facility] [place] [facility] [address] [id number] [place] [address]- 2984 Mar, [facility] [place] [facility] [address] [id number] [place] [address]- 7115 Mar, [facility] [place] [facility] [address] [id number] [place] [address]- 0246 Mar, [facility] [place] [facility] [address] [id number] [place] [address]- 1946 Mar, [facility] [place] [facility] [address] [id number] [place] [address]- 6066 Mar, [facility] [place] [facility] [address] [id number] [place] [address]- 1826 Mar, [facility] [place] [facility] [address] [id number] [place] [address]- 4571 Mar, [facility] [place] [facility] [address] [id number] [place] [address]- 2881 Mar, [facility] [place] [facility] [address] [id number] [place] [address]- 6756 Mar, [facility] [place] [facility] [address] [id number] [place] [address]- 4789 Feb, [facility] [place] [facility] [address] [id number] [place] [address]- 6180 Feb, [facility] [place] [facility] [address] [id number] [place] [address]- 3828 Feb, [facility] [place] [facility] [address] [id number] [place] [address]- 5476 Feb, [facility] [place] [facility] [address] [id number] [place] [address]- 2610 Feb, [facility] [place] [facility] [address] [id number] [place] [address]- 7201 Feb, [facility] [place] [facility] [address] [id number] [place] [address]- 8563 Feb, [facility] [place] [facility] [address] [id number] [place] [address]- 4373 Feb, [facility] [place] [facility] [address] [id number] [place] [address]- 9139 Feb, [facility] [place] [facility] [address] [id number] [place] [address]- 8514 Feb, [facility] [place] [facility] [address] [id number] [place] [address]- 2976 18 Jan, 2012 [facility] [place] [facility] [address] [id number] [place] [address]- 8136 Jan, [facility] [place] [facility] [address] [id number] [place] [address]- 2826 Jan, [facility] [place] [facility] [address] [id number] [place] [address]- 2610 Jan, [facility] [place] [facility] [address] [id number] [place] [address]- 3456 28 Dec, 2011 [facility] [place] [facility] [address] [id number] [place] [address]- 8271 25 Sep2011 [facility] [place] [facility] [address] [id number] [place] [address]- 7708 18 Sep2011 [facility] [place] [facility] [address] [id number] [place] [address]- 1144 18 Sep2011 [facility] [place] [facility] [address] [id number] [place] [address]- 2439 17 Sep2011 [facility] [place] [facility] [address] [id number] [place] [address] 2545 14 Sep2011 [facility] [place] [facility] [address] [id number] [place] [address] 2546 13 Sep, 2011 [facility] [place] [facility] [address] [id number] [place] [address] 2546 13 Sep2011 [facility] [place] [facility] [address] [id number] [place] [address]- 2546 06 Sep2011 [facility] [place] [facility] [address] [id number] [place] [address]- 3735 Nov, [facility] [place] [facility] [address] [id number] [place] [address]- 2509 Nov, [facility] [place] [facility] [address] [id number] [place] [address]- 5418 Nov, [facility] [place] [facility] [address] [id number] [place] [address]- 7202 Nov, [facility] [place] [facility] [address] [id number] [place] [address]- 8904 Sep, [facility] [place] [facility] [address] [id number] [place] [address]- 5464 Sep, [facility] [place] [facility] [address] [id number] [place] [address]- 8617 Sep, [facility] [place] [facility] [address] [id number] [place] [address]- 6814 August, [facility] [place] [facility] [address] [id number] [place] [address]- 1374 August, [facility] [place] [facility] [address] [id number] [place] [address]- 8805 August, [facility] [place] [facility] [address] [id number] [place] [address]- 6055 August, [facility] [place] [facility] [address] [id number] [place] [address]- 7549 August, [facility] [place] [facility] [address] [id number] [place] [address]- 7177 August, [facility] [place] [facility] [address] [id number] [place] [address]- 9278 August, [facility] [place] [facility] [address] [id number] [place] [address]- 0060 August, [facility] [place] [facility] [address] [id number] [place] [address]- 7084 August, [facility] [place] [facility] [address] [id number] [place] [address]- 1755 Jul, [facility] [address] [id number] [place] [address]- 6391 19 Jun, 2011 [facility] [place] [facility] [address] [id number] [place] [address]- 1536 16 Jun, 2011 [facility] [place] [facility] [address] [id number] [place] [address]- 6546 08 Jun, 2011 [facility] [place] [facility] [address] [id number] [place] [address]- 7237 06 Jun, 2011 [facility] [place] [facility] [address] [id number] [place] [address]- 8553 05 Jun, 2011 [facility] [place] [facility] [address] [id number] [place] [address]- 7040 04 Jun, 2011 [facility] [place] [facility] [address] [id number] [place] [address]- 8054 02 Jun, 2011 [facility] [place] [facility] [address] [id number] [place] [address]- 5328 Jun, [facility] [place] [facility] [address] [id number] [place] [address]- 5207 27 May, 2011 [facility] [place] [facility] [address] [facility] [id number] [place] [address]- 0482 21 May, 2011 [facility] [place] [facility] [address] [id number] [place] [address]- 3296 20 May, 2011 [facility] [place] [facility] [address] [id number] [place] [address]- 2800 19 May, 2011 [facility] [place] [facility] [address] [id number] [place] [address]- 0232 17 May, 2011 [facility] [place] [facility] [address] [id number] [place] [address] 2546 16 May, 2011 [facility] [place] [facility] [address] [id number] [place] [address]- 0444 14 May, 2011 [facility] [place] [facility] [address] [id number] [place] [address]- 1894 Apr, [facility] [place] [facility] [address] [id number] [place] [address]- 3946 Apr, [facility] [place] [facility] [address] [id number] [place] [address]- 8086 Apr, [facility] [place] [facility] [address] [id number] [place] [address]- 6986 Apr, [facility] [place] [facility] [address] [id number] [place] [address]- 4354 Apr, [facility] [place] [facility] [address] [id number] [place] [address]- 5226 Apr, [facility] [place] [facility] [address] [id number] [place] [address]- 9536 Apr, [facility] [place] [facility] [address] [id number] [place] [address]- 3526 Apr, [facility] [place] [facility] [address] [id number] [place] [address]- 1059 Mar, [facility] [place] [facility] [address] [id number], [place] [address]- 1476 Mar, [facility] [place] [facility] [address] [id number], [place] [address]- 8356 28 Feb, 2011 [facility] [place] [facility] [address] [id number], [place] [address]- 2856 17 Feb, 2011 [facility] [place] [facility] [address] [id number] [place] [address]- 8906 17 Feb, 2011 [facility] [place] [facility] [address] [id number], [place] [address]- 6816 16 Feb, 2011 [facility] [place] [facility] [address] [id number], [place] [address] 16 Feb, 2011 [facility] [place] [facility] [address] [id number], [place] [address] 24 Jan, 2011 [facility] [place] [facility] [address] [id number] [place] [address] Nov, [facility] [place] [facility] [address] [id number] [place] [address] 14 Sep, 2010 [facility] [place] [facility] [address] [id number] [place] [address] August, [facility] [place] [facility] [address] [id number] [place] [address] 16 Jun, 2010 [facility] [place] [facility] [address] [id number] [place] [address] 14 May, 2010 [facility] [place] [facility] [address] [id number] [place] [address] Apr, [facility] [place] [facility] [address] [id number] [place] [address] Mar, [facility] [place] [facility] [address] [id number] [place] [address] 14 Mar, 2010 [facility] [place] [facility] [address] [id number] [place] [address] 14 Mar, 2010 [facility] [place] [facility] [address] [id number] [place] [address] Feb, [facility] [place] [facility] [address] [id number] [place] [address] Feb, [facility] [place] [facility] [address] [id number] [place] [address] Jan, [facility] [place] [facility] [address] [id number] [place] [address] Jan, [facility] [place] [facility] [address] [id number] [place] [address] Jan, [facility] [place] [facility] [address] [id number] [place] [address] Oct, [facility] [place] [facility] [address] [facility] [id number], [place] [address] Oct, [facility] [address] [facility] [id number], [place] [address] Apr, [facility] [address] [facility] [id number], [place] [address] Mar, [facility] [address] [facility] [id number], [place] [address] Mar, [facility] [address] [facility] [id number], [place] [address] Jan, [facility] [address] [facility] [id number], [place] [address] Dec, IMMUNIZATIONS No Known Immunizations SOCIAL HISTORY Never Assessed REASON FOR VISIT Controlled Med Refill PLAN OF CARE VITAL SIGNS MEDICATIONS Medication Instructions Dosage Frequency Start Date End Date Duration Status Percocet 5-325 MG Orally every 6 hrs prn 1 tablet as needed Nov, 28 days Active RESULTS No Results PROCEDURES No Known [...]
--- OUTSIDE RECORDS SUMMARY | 2018-02-13 03:50 | XMS REPORT ---
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 Name Role Phone COLBY JAIME Unavailable PROBLEMS Type Condition ICD9-CM Code CQU47-NB Code Onset Dates Condition Status SNOMED Code Problem Asthma J45.909 Active 843852723 Problem Reactive depression F32.9 Active 10739115 Problem Secondary hypertension I15.9 Active 97373702 Problem Open bite of left hand, initial encounter S61.452A Active 095143979 Problem Bitten by cat, initial encounter W55.01XA Active 954681690 Problem Moderate persistent asthma with exacerbation J45.41 Active 410848582 Problem Bronchitis J40 Active 94050517 Problem Simple chronic bronchitis J41.0 Active 60339600 Problem Recurrent major depressive disorder, in full remission F33.42 Active 814439245 Problem Renal failure N19 Active 95590205 Problem Joint pain of left hip on movement M25.552 Active 547883325 Problem Hypercholesterolemia E78.00 Active 89839662 Problem Environmental allergies Z91.09 Active 783519478 Problem PVD (peripheral vascular disease) I73.9 Active 831519987 Problem Diabetes mellitus E11.9 Active 54479202 Problem Proteinuria R80.9 Active 22427758 Problem Insomnia G47.00 Active 405074010 Problem Neuropathy G62.9 Active 182895759 Problem GERD (gastroesophageal reflux disease) K21.9 Active 555773793 ALLERGIES Substance Reaction Event Type Date Status Stadol Unknown Drug Allergy Oct, Active Glucotrol Unknown Drug Allergy Oct, Active ENCOUNTERS Encounter Location Date Diagnosis [facility] [address] [facility] [id number] [address] Nov, Diabetes mellitus E11.9 [facility] [address] [facility] [id number], [place] [address] Oct, Dermatitis due to plants, including poison chris, sumac, and oak L25.[address] [address] Sep, Diabetes mellitus E11.9 and Medication management Z79.[address] [address]- [address] Sep, [address] [address] August, Neuropathy G62.9 [facility] [address] [address] August, Open bite of left hand, initial encounter S61.452A ; Encounter for immunization Z23 and Bitten by cat, initial encounter W55.01XA [address] [address] Jul, Environmental allergies Z91.09 [place] [address] [address] Jun, [address] [address]- [address] Jun, Simple chronic bronchitis J41.0 ; PVD (peripheral vascular disease) I73.9 and Recurrent major depressive disorder, in full remission F33.42 [facility] [address] [place] [address] [id number] [place] [id number] Jun, Dental examination Z01.20 [facility] [address] [address] Jun, Moderate persistent asthma with exacerbation J45.[address] [address] May, Neuropathy G62.9 and Diabetes mellitus E11.9 [place] [address] [address]- [address] Apr, [facility] [place] [address] [place] [address] Apr, Cough R05 [facility] [address] [address]- [address] Feb, [facility] [address] [place] [id number] [place] [address] 25052- 4633 Feb, [facility] [address] [address]- [address] Feb, Diabetes mellitus E11.9 ; Neuropathy G62.9 ; Joint pain of left hip on movement M25.552 and Encounter for immunization Z23 [facility] [address] [address]- 69[address] Feb, [facility] [address] [address]- [address] Feb, Diabetes mellitus E11.9 [facility] [address] 07[address]- 6129 Feb, [facility] [address] [place] [id number] [place] [address] 86115- 1631 Jan, [facility] [address] [address]- 00[address] Jan, Secondary hypertension I15.9 [facility] [address] [place] [id number] [place] [address] 90014- 9526 Dec, Diabetes mellitus E11.9 [facility] [id number] [place] [address] [id number] Nov, Encounter for dental examination Z01.20 [facility] [address] [place] [id number] [place] [address] Oct, Allergic contact dermatitis due to plants, except food L23.7 [facility] [address] [place] [id number] [place] [address] 47491- 2274 Oct, [facility] [address] [place] [id number] [place] [address] 16495- 8537 Oct, Diabetes mellitus E11.9 ; PVD (peripheral vascular disease) I73.9 ; Neuropathy G62.9 ; GERD (gastroesophageal reflux disease) K21.9 ; Insomnia G47.00 ; Environmental allergies Z91.09 ; Secondary hypertension I15.9 ; Reactive depression F32.9 ; Hypercholesterolemia E78.00 and Joint pain of left hip on movement M25.552 [place] [address] [address]- [address] Sep, Diabetes mellitus E11.9 [facility] [address] [address]- 384[address] Sep, Diabetes mellitus E11.9 [place] [address] 31782- 1619 Sep, Diabetes mellitus E11.9 [place] [address] 6[address]27- 4986 Sep, Neuropathy G62.9 [place] [address] 9[address]17- 0307 August, [place] [address] [address]674- 9845 Jul, [place] [address] [address]04- 0976 Jun, [place] [address] [place] [id number] [place] [address] 71787- 0763 Jun, Diabetes mellitus E11.9 ; PVD (peripheral vascular disease) I73.9 ; Neuropathy G62.9 ; Joint pain of left hip on movement M25.552 ; Renal failure N19 ; Asthma J45.909 ; Reactive depression F32.9 ; Pure hypercholesterolemia, unspecified E78.00 and Insomnia G47.00 [facility] [address] [address]- 2065 Jun, Joint pain of left hip on movement M25.552 and Diabetes mellitus E11.9 [place] [address] 75955- 9999 Jun, [facility] [address] [place] [id number] [place] [address] May, Cough R05 and Bronchitis J40 [facility] [address] [place] [id number] [place] [address] 38564- 5293 May, [facility] [address] 16554- 5360 May, [facility] [address] [address]12- 7698 May, Asthma J45.909 and Bronchitis J40 [facility] [address] [address]- 359[address] 07 May, 2016 [facility] [address] 07483- 8658 07 May, 2016 Bronchitis J40 [facility] [address] [place] [id number] [place] [address] 85784- 6330 06 May, 2016 [facility] [address] [place] [id number] [place] [address] 02052- 2844 Apr, Diabetes mellitus E11.9 ; PVD (peripheral vascular disease) I73.9 ; GERD (gastroesophageal reflux disease) K21.9 ; Asthma J45.909 ; Insomnia G47.00 ; Environmental allergies Z91.09 ; Secondary hypertension I15.9 ; Joint pain of left hip on movement M25.552 ; Hypercholesterolemia E78.0 and Reactive depression F32.9 [facility] [address] [place] [id number] [place] [address] 95686- 8878 14 Mar, 2016 Diabetes mellitus E11.9 ; PVD (peripheral vascular disease) I73.9 and Hypercholesterolemia E78.0 [facility] [address] [place] [id number] [place] [address] 23684- 8545 14 Mar, 2016 Diabetes mellitus E11.9 and Hypercholesterolemia E78.0 [facility] [address] [place] [id number] [place] [address] 99095- 5831 Mar, [facility] [id number] [place] [address] 67569- 7984 Feb, [facility] [address] [place] [id number] [place] [address] 08718- 9035 Feb, [facility] [address] [place] [id number] [place] [address] 60930- 5659 Feb, [place] [address] 5[address]11- 5115 Jan, Encounter for immunization Z23 [place] [address] 71505- 9372 Jan, [place] [address] 02773- 7445 Dec, [place] [address] [place] [id number] [place] [address] 47717- 5166 Dec, Diabetes mellitus E11.9 ; PVD (peripheral vascular disease) I73.9 ; GERD (gastroesophageal reflux disease) K21.9 ; Insomnia G47.00 ; Joint pain of left hip on movement M25.552 ; Asthma J45.909 ; Environmental allergies Z91.09 ; Hypercholesterolemia E78.0 ; Essential hypertension I10 and Neuropathy G62.9 [place] [address] [place] [id number] [place] [address] 50317- 1352 Nov, [place] [address] [place] [id number] [place] [address] 65078- 8655 Nov, [place] [address] [place] [id number] [place] [address] 28599- 1656 Oct, PVD (peripheral vascular disease) I73.9 and Diabetes mellitus E11.9 [place] [address] [place] [id number] [place] [address] 11644- 2981 Sep, Diabetes mellitus E11.9 ; PVD (peripheral vascular disease) I73.9 ; Neuropathy G62.9 ; Joint pain of left hip on movement M25.552 ; GERD ( gastroesophageal reflux disease) K21.9 ; Asthma J45.909 ; Insomnia G47.00 ; Secondary hypertension I15.9 and Hypercholesteremia E78.0 [facility] [address] [place] [id number] [place] [address] 99503- 6915 August, [facility] [address] [place] [id number] [place] [address] 90456- 8448 August, Neuropathy G62.9 [facility] [address] [place] [id number] [place] [address] 78836- 3386 August, Neuropathy G62.9 [facility] [address] [place] [id number] [place] [address] 83896- 5701 Jun, Diabetes mellitus E11.9 ; Joint pain of left hip on movement M25.552 ; PVD (peripheral vascular disease) I73.9 ; Neuropathy G62.9 ; GERD (gastroesophageal reflux disease) K21.9 ; Asthma J45.909 ; Insomnia G47.00 ; Environmental allergies Z91.09 ; HTN (hypertension) I10 and Hypercholesteremia E78.0 [facility] [address] [place] [id number] [place] [address] 27338- 1592 Jun, [facility] [address] [place] [id number] [place] [address] 27841- 6432 Jun, [facility] [address] [place] [id number] [place] [address] 06938- 1279 Jun, [facility] [address] [place] [id number] [place] [address] 63157- 1485 Apr, [facility] [address] [place] [id number] [place] [address] 26303- 2263 Apr, [facility] [address] [place] [id number] [place] [address] 48682- 1576 Apr, Sinusitis J32.9 [facility] [address] [place] [id number] [place] [address] 70566- 0604 Apr, Neuropathy G62.9 [facility] [address] [place] [address] 56988- 9702 Mar, [facility] [address] [place] [id number] [place] [address] 78260- 6380 Mar, [facility] [address] [place] [id number] [place] [address] 65691- 6348 Mar, Diabetes mellitus E11.9 ; PVD (peripheral vascular disease) I73.9 ; Neuropathy G62.9 ; GERD (gastroesophageal reflux disease) K21.9 ; Renal failure N19 ; Asthma J45.909 ; Insomnia G47.00 ; Environmental allergies Z91.09 ; Sinusitis J32.9 ; Cough R05 ; Edema R60.9 ; HTN (hypertension) I10 and Hypercholesterolemia E78.0 [facility] [address] [place] [id number] [place] [address] 65881 -7984 Mar, Dysuria R30.0 ; Vomiting, unspecified R11.10 ; Benign essential hypertension I10 and Dizziness R42 [facility] [address] [place] [id number] [place] [address] 11435- 3383 Mar, [place] [address] [place] [id number] [place] [address] 64320- 6022 Mar, [place] [address] [place] [id number] [place] [address] 76825- 3543 Feb, [facility] [address] [place] [id number] [place] [address] 11418- 4119 Feb, [facility] [address] [place] [id number] [place] [address] 78624- 7401 Feb, [facility] [address] [place] [id number] [place] [address] 83338- 1146 Feb, [place] [address] [place] [id number] [place] [address] 32886- 7546 Feb, Joint pain of left hip on movement M25.552 ; Lumbago M54.5 and UTI (urinary tract infection) N39.0 [facility] [address] [place] [id number] [address]- 0502 Feb, [facility] [address] [place] [id number] [place] [address] 69362- 0071 Feb, [facility] [address] [place] [id number] [place] [address] 55438- 8341 Jan, [facility] [address] [place] [id number] [place] [address] 90319- 3014 Jan, [facility] [address] [place] [id number] [place] [address] 32330- 2193 Jan, [facility] [address] [place] [id number] [place] [address] 70039- 2662 Jan, [facility] [address] [place] [id number] [place] [address] 91162- 1566 Jan, 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 [facility] [address] [place] [id number] [place] [address] 52492- 8301 Dec, Hypertension 401.9 and Diabetes 250.00 [facility] [address] [place] [id number] [place] [address] 25450- 6466 Dec, Diabetes 250.00 ; Influenza vaccine administered V04.81 ; Unspecified peripheral vascular disease 443.9 ; Issue of repeat prescriptions V68.1 ; Unspecified hereditary and idiopathic peripheral neuropathy 356.9 ; Insomnia, unspecified 780.52 ; Hypercholesteremia 272.0 ; Pain in joint, site unspecified 719.40 ; Dizziness 780.4 and PCV-13 (PREVNAR) DX V03.82 [facility] [address] [address]- 4832 Dec, [facility] [address] [place] [id number] [place] [address] 50746- 7579 Dec, [facility] [address] [place] [id number] [place] [address] 49171- 1375 Dec, [facility] [address] [place] [id number] [place] [address] 06809- 7379 Dec, [facility] [address] [address]- 9357 Dec, [facility] [address] [place] [address] 460705- 2821 Dec, [facility] [address] [place] [address] 51185- 3652 Nov, [facility] [address] [place] [id number] [place] [address] 481961- 1973 Nov, Environmental allergies V15.09 ; Sacroiliitis, not elsewhere classified 720.2 and Cough 786.2 [facility] [address] [place] [id number] [place] [address] 47879- 0631 Oct, [facility] [address] [place] [id number] [place] [address] 00576- 3631 Oct, [facility] [address] [place] [id number] [place] [address] 85286- 1919 Oct, [facility] [address] [address]- 6078 Sep, [facility] [address] [place] [address] 57330- 6563 Sep, [facility] [address] [address]- 4839 Sep, Dysuria 788.1 and Diabetes with other specified manifestations, type II or unspecified type, not stated as uncontrolled 250.80 [facility] [address] [address]- 4900 Sep, [facility] [address] [place] [id number] [place] [address] 04697- 1685 Sep, Diabetes with other specified manifestations, type II or unspecified type, not stated as uncontrolled 250.80 [facility] [address], [place] [address]- 1877 Sep, DM w/o complication type II 250.00 ; Unspecified peripheral vascular disease 443.9 ; Pain in joint, pelvic region and thigh 719.45 ; Asthma , unspecified, unspecified status 493.90 ; Hypercholesteremia 272.0 ; Fatigue 780.79 ; UTI (lower urinary tract infection) 599.0 and Essential hypertension 401.9 [facility] [address] [address]- 7389 Sep, [facility] [address] [place] [id number] [place] [address] 304417- 7505 Sep, [facility] [address] [place] [address] [address]- 8388 Sep, [facility] [address] [place] [id number] [place] [address] 25659- 4851 August, [facility] [address] [place] [id number] [place] [address] 44625- 5902 August, [facility] [address] [place] [id number] [place] [address] 42718- 4491 August, Diabetes with other specified manifestations, type II or unspecified type, not stated as uncontrolled 250.80 [facility] [address] [place] [id number] [address]- 9821 Jul, Peripheral vascular disease 443.9 [facility] [address] [address]- 2238 Jul, [facility] [address] [address]- 8252 Jul, [facility] [address] [address]- 0494 Jun, [facility] [address] [place] [id number]- 5566 Jun, [facility] [address] [address]- 4333 Jun, [facility] [address] [place] [id number] [place] [address] [place] [address]- 0459 13 Jun, 2014 [facility] [place] [facility] [address] [id number] [place] [address]- 7345 13 Jun, 2014 [facility] [place] [facility] [address] [id number] [place] [address]- 6287 12 Jun, 2014 [facility] [place] [facility] [address] [id number] [place] [address]- 9936 Jun, 2014 [facility] [place] [facility] [address] [id number] [place] [address]- 2829 04 Jun, 2014 [facility] [place] [facility] [address] [id number] [place] [address]- 4527 04 Jun, 2014 [facility] [place] [facility] [address] [id number] [place] [address]- 0657 26 May, 2014 [facility] [place] [facility] [address] [id number] [place] [address]- 4525 26 May, 2014 [facility] [place] [facility] [address] [id number] [place] [address]- 1676 24 May, 2014 [facility] [place] [facility] [address] [facility] [id number] [place] [address]- 7842 18 May, 2014 [facility] [place] [facility] [address] [facility] [id number] [place] [address]- 7268 18 May, 2014 [facility] [place] [facility] [address] [facility] [id number] [place] [address]- 3715 17 May, 2014 [facility] [place] [facility] [address] [id number] [place] [address]- 5704 17 May, 2014 [facility] [place] [facility] [address] [id number] [place] [address]- 9412 13 May, 2014 [facility] [place] [facility] [address] [facility] [id number] [place] [address]- 2054 13 May, 2014 [facility] [place] [facility] [address] [facility] [id number] [place] [address]- 5427 May, [facility] [place] [facility] [address] [id number] [place] [address]- 6027 May, [facility] [place] [facility] [address] [id number] [place] [address]- 9629 May, [facility] [place] [facility] [address] [id number] [place] [address]- 2420 May, [facility] [place] [facility] [address] [id number] [place] [address]- 0424 Apr, [facility] [place] [facility] [address] [id number] [place] [address]- 5536 Apr, [facility] [place] [facility] [address] [id number] [place] [address]- 6056 Apr, [facility] [place] [facility] [address] [id number] [place] [address]- 2701 Apr, [facility] [place] [facility] [address] [id number] [place] [address]- 3618 Apr, [facility] [place] [facility] [address] [id number] [place] [address]- 1302 Apr, [facility] [place] [facility] [address] [id number] [place] [address]- 6406 Apr, [facility] [place] [facility] [address] [id number] [place] [address]- 5601 Apr, [facility] [place] [facility] [address] [id number] [place] [address]- 1424 Mar, [facility] [place] [facility] [address] [id number] [place] [address]- 5290 Mar, [facility] [place] [facility] [address] [id number] [place] [address]- 0781 Mar, [facility] [place] [facility] [address] [id number] [place] 5722 Mar, [facility] [place] [facility] [address] [id number] [place] 3819 Mar, [facility] [address] [id number] [place] [address]- 1540 Mar, [facility] [place] [facility] [address] [id number] [place] 8056 Mar, [facility] [place] [facility] [address] [id number] [place] [address]- 5707 Mar, [facility] [place] [facility] [address] [id number] [place]- 2753 Mar, [facility] [place] [facility] [address] [id number] [place] 4424 Mar, [facility] [place] [facility] [address] [id number] [place] [address]- 7163 Mar, [facility] [place] [facility] [address] [id number] [place] [address]- 6673 Mar, [facility] [place] [facility] [address] [id number] [place] [address]- 6316 Mar, [facility] [place] [facility] [address] [id number] [place] [address]- 5851 Mar, [facility] [place] [facility] [address] [id number] [place] [address]- 5165 Feb, [facility] [place] [facility] [address] [id number] [place] [address]- 8753 Feb, [facility] [place] [facility] [address] [id number] [place] [address]- 8944 Feb, [facility] [place] [facility] [address] [id number] [place] [address]- 1826 Feb, [facility] [place] [facility] [address] [id number] [place] [address] Feb, [facility] [place] [facility] [address] [id number] [place] [address] Feb, [facility] [place] [facility] [address] [id number] [place] [address] Feb, [facility] [place] [facility] [address] [id number] [place] [address] Feb, [facility] [place] [facility] [address] [id number] [place] [address] Feb, [facility] [place] [facility] [address] [id number] [place] [address] Feb, [facility] [place] [facility] [address] [id number] [place] [address] Feb, [facility] [place] [facility] [address] [id number] [place] [address] Feb, [facility] [place] [facility] [address] [id number] [place] [address] Feb, [facility] [place] [facility] [address] [id number] [place] [address] Feb, [facility] [place] [facility] [address] [id number] [place] [address] Feb, [facility] [place] [facility] [address] [id number] [place] [address] Feb, [facility] [place] [facility] [address] [id number] [place] [address] Jan, [facility] [place] [facility] [address] [id number], [place] [address] Jan, [facility] [place] [facility] [address] [id number] [place] [address] Jan, [facility] [place] [facility] [address] [id number] [place] [address] Jan, [facility] [place] [facility] [address] [id number], [place] [address] Jan, [facility] [place] [facility] [address] [id number], [place] [address] Jan, [facility] [place] [facility] [address] [id number] [place] [address] Jan, [facility] [place] [facility] [address] [id number] [place] [address] Jan, [facility] [place] [facility] [address] [id number] [place] [address] Dec, [facility] [place] [facility] [address] [id number] [place] [address] Dec, [facility] [place] [facility] [address] [id number] [place] [address] Nov, [facility] [place] [facility] [address] [id number] [place] [address] Nov, [facility] [place] [facility] [address] [id number] [place] [address] Nov, [facility] [place] [facility] [address] [id number] [place] [address] Nov, [facility] [place] [facility] [address] [id number] [place] [address] Nov, [facility] [place] [facility] [address] [id number] [place] [address] Nov, [facility] [place] [facility] [address] [id number] [place] [address] Oct, [facility] [place] [facility] [address] [id number] [place] [address] Oct, [facility] [place] [facility] [address] [id number] [place] [address] Oct, [facility] [place] [facility] [address] [id number] [place] [address] 37[address] Oct, [facility] [place] [facility] [address] [id number] [place] [address] Sep, [facility] [place] [facility] [address] [id number] [place] [address] 98[address] Sep, [facility] [place] [facility] [address] [id number] [place] [address] Sep, [facility] [place] [facility] [address] [id number] [place] [address] Sep, [facility] [place] [facility] [address] [id number] [place] [address]309 Sep, [facility] [place] [facility] [address] [id number] [place] [address] 40[address] Sep, [facility] [place] [facility] [address] [id number] [place] [address] August, [facility] [place] [facility] [address] [id number] [place] [address] August, [facility] [place] [facility] [address] [id number] [place] [address] August, [facility] [place] [facility] [address] [id number] [place] [address] 4720 August, [facility] [place] [facility] [address] [id number] [place] [address] 0169 August, [facility] [place] [facility] [address] [id number] [place] [address] 4765 August, [facility] [place] [facility] [address] [id number] [place] [address]- 6026 August, [facility] [place] [facility] [address] [id number] [place] [address] 3411 August, [facility] [place] [facility] [address] [id number] [place] [address] August, [facility] [place] [facility] [address] [id number] [place] [address] August, [facility] [place] [facility] [address] [id number] [place] [address]- 2450 August, [facility] [place] [facility] [address] [id number] [place] [address] 8703 August, [facility] [place] [facility] [address] [id number] [place] [address]- 4465 Jul, [facility] [place] [facility] [address] [id number] [place] [address]- 9069 Jul, [facility] [place] [facility] [address] [id number] [place] [address] 1634 Jul, [facility] [place] [facility] [address] [id number] [place] [address]- 7427 Jul, [facility] [place] [facility] [address] [id number] [place] [address] 4201 Jul, [facility] [place] [facility] [address] [id number] [place] [address]- 1962 Jul, [facility] [place] [facility] [address] [id number] [place] [address]- 1714 Jul, [facility] [place] [facility] [address] [id number] [place] [address]- 7492 Jul, [facility] [place] [facility] [address] [id number] [place] [address] Jul, [facility] [place] [facility] [address] [id number] [place] [address]- 8103 Jul, [facility] [place] [facility] [address] [id number] [place] [address]- 3651 Jul, [facility] [place] [facility] [address] [id number] [place] [address]- 1409 Jun, [facility] [place] [facility] [address] [id number] [place] [address]- 8584 Jun, [facility] [place] [facility] [address] [id number] [place] [address]- 6240 Jun, [facility] [place] [facility] [address] [id number] [place] [address]- 8498 28 Jun, 2013 [facility] [place] [facility] [address] [id number] [place] [address]- 9598 Jun, [facility] [place] [facility] [address] [id number] [place] [address]- 4200 Jun, [facility] [place] [facility] [address] [id number] [place] [address]- 6686 Jun, [facility] [place] [facility] [address] [id number] [place] [address]- 7056 Jun, [facility] [place] [facility] [address] [id number] [place] [address]- 5609 Jun, [facility] [place] [facility] [address] [id number] [place] [address]- 6373 May, [facility] [place] [facility] [address] [id number] [place] [address]- 2208 May, [facility] [place] [facility] [address] [id number] [place] [address]- 9468 May, [facility] [place] [facility] [address] [id number] [place] [address]- 6755 Apr, [facility] [place] [facility] [address] [id number] [place] [address]- 8842 Apr, [facility] [place] [facility] [address] [id number] [place] [address]- 9868 Apr, [facility] [place] [facility] [address] [id number] [place] [address]- 3394 Apr, [facility] [place] [facility] [address] [id number] [place] [address]- 4661 Apr, [facility] [place] [facility] [address] [id number] [place] [address]- 8580 Apr, [facility] [place] [facility] [address] [id number] [place] [address]- 0028 Apr, [facility] [place] [facility] [address] [id number] [place] [address]- 3549 Apr, [facility] [place] [facility] [address] [id number] [place] [address]- 8678 Mar, [facility] [place] [facility] [address] [id number] [place] [address]- 5847 Mar, [facility] [place] [facility] [address] [id number] [place] [address]- 5203 Feb, [facility] [place] [facility] [address] [id number] [place] [address]- 5227 Feb, [facility] [place] [facility] [address] [id number] [place] [address]- 5168 Jan, [facility] [place] [facility] [address] [id number] [place] [address]- 0227 Jan, [facility] [place] [facility] [address] [id number] [place] [address]- 8458 Jan, [facility] [place] [facility] [address] [id number] [place] [address]- 1741 Jan, [facility] [place] [facility] [address] [id number] [place] [address]- 0233 Jan, [facility] [place] [facility] [address] [id number] [place] [address]- 5008 Jan, [facility] [place] [facility] [address] [id number], [place] [address]- 8447 Jan, [facility] [place] [facility] [address] [id number] [place] [address]- 4493 Jan, [facility] [place] [facility] [address] [id number] [place] [address]- 0673 Jan, [facility] [place] [facility] [address] [id number] [place] [address]- 7009 Jan, [facility] [place] [facility] [address] [id number], [place] [address]- 0167 14 Jan, 2013 [facility] [place] [facility] [address] [id number] [place] [address]- 2618 14 Jan, 2013 [facility] [place] [facility] [address] [id number] [place] [address]- 4466 10 Jan, 2012 [facility] [place] [facility] [address] [id number] [place] [address]- 4976 10 Jan, 2012 [facility] [place] [facility] [address] [id number] [place] [address]- 0161 10 Jan, 2012 [facility] [place] [facility] [address] [id number] [place] [address]- 7902 10 Jan, 2012 [facility] [place] [facility] [address] [id number] [place] [address]- 6786 09 Jan, 2013 [facility] [place] [facility] [address] [id number] [place] [address]- 5422 09 Jan, 2013 [facility] [place] [facility] [address] [id number] [place] [address]- 1925 08 Jan, 2013 [facility] [place] [facility] [address] [id number] [place] [address]- 8190 07 Jan, 2013 [facility] [place] [facility] [address] [id number] [place] [address]- 7888 07 Jan, 2013 [facility] [place] [facility] [address] [id number], [place] [address]- 5253 04 Jan, 2013 [facility] [place] [facility] [address] [id number], [place] [address]- 8692 04 Jan, 2013 [facility] [place] [facility] [address] [id number] [place] [address]- 2360 17 Dec, 2012 [facility] [place] [facility] [address] [id number] [place] [address]- 5217 16 Dec, 2012 [facility] [place] [facility] [address] [id number] [place] [address]- 9020 Nov, [facility] [place] [facility] [address] [id number] [place] [address]- 5192 Oct, 2012 [facility] [address] [id number] [place] [address]- 7999 Oct, [facility] [address] [id number] [place] [address]- 5276 Oct, [facility] [address] [id number] [place] [address]- 2633 Oct, [facility] [address] [id number] [place] [address]- 3929 Oct, [facility] [address] [id number] [place] [address]- 3319 Oct, [facility] [address] [id number] [place] [address]- 6156 Sep, [facility] [address] [id number] [place] [address]- 3089 Sep, [facility] [address] [id number] [place] [address]- 0249 Sep, [facility] [address] [id number] [place] [address]- 4572 Jul, [facility] [address] [id number] [place] [address]- 1473 Jul, [facility] [address] [id number] [place] [address]- 1241 Jul, [facility] [address] [id number] [place] [address]- 1740 Jun, [facility] [place] [facility] [address] [id number] [place] [address]- 9744 Jun, [facility] [address] [id number] [place] [address]- 6393 Jun, [facility] [address] [id number] [place] [address]- 8842 Jun, [facility] [address] [id number] [place] [address]- 1322 Jun, [facility] [place] [facility] [address] [id number] [place] [address]- 2652 Jun, [facility] [address] [id number] [place] [address]- 1559 May, [facility] [place] [facility] [address] [id number] [place] [address]- 7164 May, [facility] [address] [id number] [place] [address]- 6669 Apr, [facility] [address] [id number] [place] [address]- 0167 Apr, [facility] [address] [id number] [place] [address]- 5285 Apr, [facility] [address] [id number] [place] [address]- 8859 Apr, [facility] [address] [id number] [place] [address]- 1877 Apr, [facility] [address] [id number] [place] [address]- 9563 Mar, [facility] [address] [id number] [place] [address]- 6979 31 Mar, 2012 [facility] [place] [facility] [address] [id number], [place] [address]- 1221 Mar, [facility] [place] [facility] [address] [id number] [place] [address]- 1747 Mar, [facility] [place] [facility] [address] [id number] [place] [address]- 2754 14 Mar, 2012 [facility] [place] [facility] [address] [id number] [place] [address]- 8832 14 Mar, 2012 [facility] [place] [facility] [address] [id number] [place] [address]- 0904 10 Mar, 2012 [facility] [place] [facility] [address] [id number] [place] [address]- 5349 Mar, [facility] [place] [facility] [address] [id number] [place] [address]- 0806 Mar, [facility] [place] [facility] [address] [facility] [id number] [place] [address]- 0676 Mar, [facility] [place] [facility] [address] [id number] [place] [address]- 6448 Feb, [facility] [place] [facility] [address] [id number] [place] [address]- 7048 Feb, [facility] [place] [facility] [address] [id number] [place] [address]- 1593 Feb, [facility] [place] [facility] [address] [facility] [id number] [place] [address]- 7760 Feb, [facility] [place] [facility] [address] [id number] [place] [address]- 2478 Feb, [facility] [place] [facility] [address] [facility] [id number] [place] [address]- 8731 Feb, [facility] [place] [facility] [address] [facility] [id number] [place] [address]- 6204 Feb, [facility] [place] [facility] [address] [facility] [id number] [place] [address]- 3271 Feb, [facility] [place] [facility] [address] [id number] [place] [address]- 7778 Feb, [facility] [place] [facility] [address] [id number] [place] [address]- 4726 Feb, [facility] [place] [facility] [address] [facility] [id number] [place] [address]- 3916 Jan, [facility] [place] [facility] [address] [id number], [place] [address]- 3415 Jan, [facility] [place] [facility] [address] [id number] [place] [address]- 6969 Jan, [facility] [place] [facility] [address] [id number] [place] [address]- 4233 Jan, [facility] [place] [facility] [address] [id number] [place] [address]- 2892 28 Dec, 2011 [facility] [place] [facility] [address] [id number] [place] [address]- 5950 25 Dec, 2011 [facility] [place] [facility] [address] [id number] [place] [address]- 2918 18 Dec, 2011 [facility] [place] [facility] [address] [id number] [place] [address]- 4663 18 Dec, 2011 [facility] [place] [facility] [address] [id number] [place] [address]- 4329 17 Dec, 2011 [facility] [place] [facility] [address] [id number] [place] [address]- 0213 14 Dec, 2011 [facility] [place] [facility] [address] [id number] [place] [address]- 0613 13 Dec, 2011 [facility] [place] [facility] [address] [id number] [place] [address]- 0236 13 Dec, 2011 [facility] [place] [facility] [address] [id number] [place] [address]- 5744 06 Dec, 2011 [facility] [place] [facility] [address] [id number] [place] [address]- 6389 31 Nov, 2011 [facility] [place] [facility] [address] [id number] [place] [address]- 3417 30 Nov, 2011 [facility] [place] [facility] [address] [id number] [place] [address]- 4958 Nov, [facility] [place] [facility] [address] [id number] [place] [address]- 8431 09 Nov, 2011 [facility] [place] [facility] [address] [id number] [place] [address]- 7576 Sep, [facility] [address] [id number] [place] [address]- 6410 Sep, [facility] [place] [facility] [address] [id number] [place] [address]- 2133 Sep, [facility] [place] [facility] [address] [id number] [place] [address]- 7460 August, [facility] [place] [facility] [address] [id number] [place] [address]- 3114 August, [facility] [place] [facility] [address] [id number] [place] [address]- 2709 August, [facility] [place] [facility] [address] [id number] [place] [address]- 2507 August, [facility] [place] [facility] [address] [id number] [place] [address]- 0419 August, [facility] [place] [facility] [address] [id number] [place] [address]- 7072 August, [facility] [place] [facility] [address] [id number] [place] [address]- 8815 August, [facility] [place] [facility] [address] [id number] [place] [address]- 8823 August, [facility] [place] [facility] [address] [id number] [place] [address]- 2307 August, [facility] [place] [facility] [address] [id number] [place] [address]- 2337 Jul, [facility] [place] [facility] [address] [id number] [place] [address]- 5435 Jun, [facility] [place] [facility] [address] [id number] [place] [address]- 4146 Jun, [facility] [place] [facility] [address] [id number] [place] [address]- 4837 Jun, [facility] [place] [facility] [address] [id number] [place] [address]- 4281 06 Jun, 2011 [facility] [place] [facility] [address] [id number] [place] [address]- 7155 Jun, [facility] [place] [facility] [address] [id number] [place] [address]- 3536 Jun, [facility] [place] [facility] [address] [id number] [place] [address]- 3726 Jun, [facility] [place] [facility] [address] [id number] [place] [address]- 2477 Jun, [facility] [place] [facility] [address] [id number] [place] [address]- 5073 27 May, 2011 [facility] [place] [facility] [address] [id number] [place] [address]- 8620 May, [facility] [place] [facility] [address] [id number] [place] [address]- 0117 20 May, 2011 [facility] [place] [facility] [address] [id number] [place] [address]- 6247 19 May, 2011 [facility] [place] [facility] [address] [id number] [place] [address]- 5430 17 May, 2011 [facility] [place] [facility] [address] [facility] [id number] [place] [address]- 5921 16 May, 2011 [facility] [place] [facility] [address] [facility] [id number] [place] [address]- 6865 14 May, 2011 [facility] [place] [facility] [address] [id number] [place] [address]- 0424 19 Apr, 2011 [facility] [place] [facility] [address] [id number] [place] [address]- 1259 16 Apr, 2011 [facility] [place] [facility] [address] [id number] [place] [address]- 0315 13 Apr, 2011 [facility] [place] [facility] [address] [id number] [place] [address]- 0319 Apr, [facility] [place] [facility] [address] [id number] [place] [address]- 8199 Apr, [facility] [place] [facility] [address] [id number] [place] [address]- 8324 Apr, [facility] [place] [facility] [address] [id number] [place] [address]- 3630 Apr, [facility] [place] [facility] [address] [id number] [place] [address]- 6213 Apr, [facility] [place] [facility] [address] [id number] [place] [address]- 0282 Mar, [facility] [place] [facility] [address] [id number] [place] [address] Mar, [facility] [place] [facility] [address] [id number] [place] [address] Feb, [facility] [place] [facility] [address] [id number] [place] [address] Feb, [facility] [place] [facility] [address] [id number] [place] [address] Feb, [facility] [place] [facility] [address] [id number] [place] [address] Feb, [facility] [place] [facility] [address] [id number] [place] [address] Feb, [facility] [place] [facility] [address] [id number] [address] 24 Jan, 2011 [facility] [place] [facility] [address] [id number] [place] [address] Nov, [facility] [place] [facility] [address] [id number] [place] [address] Sep, [facility] [place] [facility] [address] [id number] [place] [address] August, [facility] [place] [facility] [address] [id number] [place] [address] 16 Jun, 2010 [facility] [address] [id number] [place] [address] 14 May, 2010 [facility] [address] [id number] [place] [address] 18 Apr, 2010 [facility] [address] [id number] [place] [address] 22 Mar, 2010 [facility] [address] [id number] [place] [address] 14 Mar, 2010 [facility] [address] [id number] [place] 14 Mar, 2010 [facility] [address] [id number] [place] [address] 12 Feb, 2010 [facility] [address] [id number] [place] [address] Feb, [facility] [address] [id number] [place] [address] 12 Jan, 2010 [facility] [address] [id number] [place] [address] Jan, [facility] [address] [id number] [place] [address] Jan, [facility] [address] [id number] [place] [address] Oct, [facility] [address] [id number] [place] [address] 12 Oct, 2009 [facility] [place] [facility] [address] [id number] [place] [address] 15 Apr, 2009 [facility] [place] [facility] [address] [id number] [place] [address] Mar, [facility] [address] [id number] [place] [address] Mar, [facility] [address] [facility] [id number] [place] [address] Jan, [facility] [address] [facility] [id number] [place] [address] Dec, IMMUNIZATIONS No Known Immunizations SOCIAL HISTORY Never Assessed REASON FOR VISIT Itching started Friday JStrasserRN PLAN OF CARE Activity Details Follow Up w/ PCP, 1 Week Reason:if rash doesn't improve VITAL SIGNS Height 63 in 2017-10-19 Weight 129.0 lbs 2017-10-19 Temperature 97.6 degrees Fahrenheit 2017-10-19 Heart Rate 76 bpm 2017-10-19 Respiratory Rate 20 2017-10-19 BMI 22.85 kg/m2 2017-10-19 Blood pressure systolic 138 mmHg 2017-10-19 Blood pressure diastolic 74 mmHg 2017-10-19 MEDICATIONS Medication Instructions Dosage Frequency Start Date End Date Duration Status Diclofenac Sodium 50MG DR Orally Three times a day 1 tablet 8h Active Amitriptyline HCl 150 MG Orally Once a day 1 tablet 24h Feb, Active Pen Henderson 32G X 4 MM subcutaneously 2 times a day use to Inject insulin 12h Feb, 90 days Active Levemir Flexpen 100 UNIT/ML Subcutaneous 2 times a day Inject 25 units in AM and PM 12h Active ProAir HFA 108 (90 Base) MCG/ACT Inhalation every 4 hrs 2 puffs as needed for cough, wheeze or SOB 4h May, 30 days Active Betamethasone Dipropionate Aug 0.05 % Externally Once a day 1 application to affected area 24h Oct, Oct, 07 days Active Hydrochlorothiazide 50MG 1 tablet 24h 30 Active Atenolol 100MG 1 tablet 24h 30 Active Flonase 50 MCG/ACT Nasally Once a day 1 spray in each nostril 24h Feb, Active Gabapentin 300MG Orally 3 times a day 1 capsule by Oral route 3 times per day 8h Active Celexa 20 mg Orally Once a day 1 tablet 24h Active Albuterol Sulfate 90 mcg/actuation 2 puffs by Inhalation route every 4-6 hours as neededPRNcough or wheezing August, Active Metformin HCl 1000 MG Orally Twice a day 1 tablet with meals 12h Feb, Active Vytorin 10-40 MG Orally Once a day 1 tablet 24h Active PredniSONE 20 mg Orally Once a day 2 tablets 24h Oct, Oct, 05 days Active Symbicort 160-4.5 MCG/ACT Inhalation Twice a day 2 puffs 12h Jun, Active Mucinex 600 MG Orally every 12 hrs 1 tablet as needed 12h 10 May, 2016 Active Percocet 5-325 MG Orally every 6 hrs prn 1 tablet as needed Sep, Active RESULTS No Results PROCEDURES No Known [...] bilat 05/31/2014 Surgical History bilateral cataract surgeries 2014 Hospitalization History surgeries
--- OUTSIDE RECORDS SUMMARY | 2018-02-13 03:51 | XMS REPORT ---
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 Name Role Phone NADIYA CARMONA Unavailable PROBLEMS Type Condition ICD9-CM Code FVH42-AY Code Onset Dates Condition Status SNOMED Code Problem Asthma J45.909 Active 974529451 Problem Reactive depression F32.9 Active 26213057 Problem Secondary hypertension I15.9 Active 93789517 Problem Open bite of left hand, initial encounter S61.452A Active 111629896 Problem Bitten by cat, initial encounter W55.01XA Active 557182635 Problem Moderate persistent asthma with exacerbation J45.41 Active 349989620 Problem Bronchitis J40 Active 60093073 Problem Simple chronic bronchitis J41.0 Active 10020739 Problem Recurrent major depressive disorder, in full remission F33.42 Active 557285693 Problem Renal failure N19 Active 44223143 Problem Joint pain of left hip on movement M25.552 Active 622027162 Problem Hypercholesterolemia E78.00 Active 66382305 Problem Environmental allergies Z91.09 Active 435003500 Problem PVD (peripheral vascular disease) I73.9 Active 670789478 Problem Diabetes mellitus E11.9 Active 97404611 Problem Proteinuria R80.9 Active 52520741 Problem Insomnia G47.00 Active 977926922 Problem Neuropathy G62.9 Active 300346307 Problem GERD (gastroesophageal reflux disease) K21.9 Active 900170323 ALLERGIES Substance Reaction Event Type Date Status Stadol Unknown Drug Allergy Sep, Active Glucotrol Unknown Drug Allergy Sep, Active ENCOUNTERS Encounter Location Date Diagnosis [facility] [address] [facility] [id number] [address] Nov, [facility] [address] [facility] [id number], [place] [address] Oct, Dermatitis due to plants, including poison chris, sumac, and oak L25.5 [place] [address] [address] 38[address] 13 Sep, 2017 Diabetes mellitus E11.9 and Medication management Z79.899 [place] [address] 0[address]63- [address] 05 Sep, 2017 [place] [address] 33658- 3060 August, Neuropathy G62.9 [facility] [place] [address] [address] August, Open bite of left hand, initial encounter S61.452A ; Encounter for immunization Z23 and Bitten by cat, initial encounter W55.01XA [place] [address] 23201- 3781 05 Jul, 2017 Environmental allergies Z91.09 [place] [address] 15189- 9465 15 Jun, 2017 [place] [address] 92440- 3450 14 Jun, 2017 Simple chronic bronchitis J41.0 ; PVD (peripheral vascular disease) I73.9 and Recurrent major depressive disorder, in full remission F33.[address] [facility] [address] [id number] Jun, 2017 Dental examination Z01.20 [facility] [address] [address] Jun, Moderate persistent asthma with exacerbation J45.41 [place] [address] 84957- 9929 May, Neuropathy G62.9 and Diabetes mellitus E11.9 [place] [address] 16729- 6348 Apr, [facility] [address] [address]2608 Apr, Cough R05 [facility] [id number] [place] [address] 34018- 1980 Feb, [facility] [address] [place] [id number] [place] [address] 21676- 1772 Feb, [facility] [address] [place] [id number] [place] [address] 31863- 8451 Feb, Diabetes mellitus E11.9 ; Neuropathy G62.9 ; Joint pain of left hip on movement M25.552 and Encounter for immunization Z23 [facility] [address] [place] [id number] [place] [address] 62199- 2595 Feb, [facility] [address] [place] [id number] [place] [address] 74502- 3743 Feb, Diabetes mellitus E11.9 [facility] [address] [place] [id number] [place] [address] 29633- 1910 Feb, [facility] [address] [place] [id number] [place] [address] 65566- 4420 Jan, [facility] [address] [place] [id number] [place] [address] 01579- 8013 Jan, Secondary hypertension I15.9 [facility] [address] [place] [id number] [place] [address] 36511- 8504 Dec, Diabetes mellitus E11.[address] [facility] [address] [place] [id number] [place] [address] [id number] Nov, Encounter for dental examination Z01.20 [facility] [id number] [place] [address] 08791 -9845 Oct, Allergic contact dermatitis due to plants, except food L23.7 [facility] [address] [place] [id number] [place] [address] 67797- 2767 Oct, [facility] [address] [place] [id number] [place] [address] 91090- 8140 Oct, Diabetes mellitus E11.9 ; PVD (peripheral vascular disease) I73.9 ; Neuropathy G62.9 ; GERD (gastroesophageal reflux disease) K21.9 ; Insomnia G47.00 ; Environmental allergies Z91.09 ; Secondary hypertension I15.9 ; Reactive depression F32.9 ; Hypercholesterolemia E78.00 and Joint pain of left hip on movement M25.552 [facility] [address] 73880- 7895 Sep, Diabetes mellitus E11.9 [facility] [address] 10647- 0716 Sep, Diabetes mellitus E11.9 [facility] [address] 30720- 2052 Sep, Diabetes mellitus E11.9 [facility] [address] 23939- 2180 Sep, Neuropathy G62.9 [facility] [address] 30321- 5994 August, [facility] [address] 46826- 9618 Jul, [facility] [address] 38504- 2856 Jun, [facility] [address] [place] [id number] [place] [address] 86334- 7197 Jun, Diabetes mellitus E11.9 ; PVD (peripheral vascular disease) I73.9 ; Neuropathy G62.9 ; Joint pain of left hip on movement M25.552 ; Renal failure N19 ; Asthma J45.909 ; Reactive depression F32.9 ; Pure hypercholesterolemia, unspecified E78.00 and Insomnia G47.00 [facility] [address] [place] [id number] [place] [address] 01211- 7489 Jun, Joint pain of left hip on movement M25.552 and Diabetes mellitus E11.9 [facility] [address] 95530- 6305 Jun, [facility] [id number] [place] [address] 10368 -3888 May, Cough R05 and Bronchitis J40 [facility] [address] [place] [id number] [place] [address] 79376- 8347 May, [facility] [address] [place] [id number] [place] [address] 47330- 8936 May, [facility] [address] 51128- 7446 May, Asthma J45.909 and Bronchitis J40 [facility] [address] 78606- 8706 May, [facility] [address] [place] [id number] [place] [address] 55603- 6238 May, Bronchitis J40 [facility] [address] 53616- 1879 May, [facility] [address] [place] [id number] [place] [address] 79431- 2842 Apr, Diabetes mellitus E11.9 ; PVD (peripheral vascular disease) I73.9 ; GERD (gastroesophageal reflux disease) K21.9 ; Asthma J45.909 ; Insomnia G47.00 ; Environmental allergies Z91.09 ; Secondary hypertension I15.9 ; Joint pain of left hip on movement M25.552 ; Hypercholesterolemia E78.0 and Reactive depression F32.9 [facility] [address] [place] [id number] [place] [address] 44451- 5235 Mar, Diabetes mellitus E11.9 ; PVD (peripheral vascular disease) I73.9 and Hypercholesterolemia E78.0 [place] [address] [place] [id number] [place] [address] 70903- 4882 Mar, Diabetes mellitus E11.9 and Hypercholesterolemia E78.0 [place] [address] [place] [id number] [place] [address] 96328- 2583 Mar, [place] [address] [address] 75[address] Feb, [facility] [address] [place] [id number] [place] [address] 19959- 8570 Feb, [facility] [address] [place] [id number] [place] [address] 15880- 0823 Feb, [place] [address] 47218- 7125 Jan, Encounter for immunization Z23 [place] [address] [place] [id number] [place] [address] 69130- 0976 Jan, [place] [address] [place] [id number] [place] [address] 99481- 5946 Dec, [place] [address] [place] [id number] [place] [address] 53768- 9074 Dec, Diabetes mellitus E11.9 ; PVD (peripheral vascular disease) I73.9 ; GERD (gastroesophageal reflux disease) K21.9 ; Insomnia G47.00 ; Joint pain of left hip on movement M25.552 ; Asthma J45.909 ; Environmental allergies Z91.09 ; Hypercholesterolemia E78.0 ; Essential hypertension I10 and Neuropathy G62.9 [place] [address] [address] Nov, [place] [address] [place] [id number] [place] [address] 27119- 9735 Nov, [place] [address] [place] [id number] [place] [address] 68837- 8402 Oct, PVD (peripheral vascular disease) I73.9 and Diabetes mellitus E11.9 [place] [address] [place] [id number] [place] [address] 38532- 8368 Sep, Diabetes mellitus E11.9 ; PVD (peripheral vascular disease) I73.9 ; Neuropathy G62.9 ; Joint pain of left hip on movement M25.552 ; GERD ( gastroesophageal reflux disease) K21.9 ; Asthma J45.909 ; Insomnia G47.00 ; Secondary hypertension I15.9 and Hypercholesteremia E78.0 [facility] [address] [place] [id number] [place] [address] 55177- 9397 August, [facility] [address] [place] [id number] [place] [address] 59126- 5861 August, Neuropathy G62.9 [facility] [address] 13446- 3651 August, Neuropathy G62.9 [facility] [address] [place] [id number] [place] [address] 22427- 9644 Jun, Diabetes mellitus E11.9 ; Joint pain of left hip on movement M25.552 ; PVD (peripheral vascular disease) I73.9 ; Neuropathy G62.9 ; GERD (gastroesophageal reflux disease) K21.9 ; Asthma J45.909 ; Insomnia G47.00 ; Environmental allergies Z91.09 ; HTN (hypertension) I10 and Hypercholesteremia E78.0 [facility] [address] [place] [id number] [place] [address] 48815- 4320 Jun, [facility] [address] [place] [id number] [place] [address] 54041- 4856 Jun, [facility] [address] [place] [id number] [place] [address] 91255- 8612 Jun, [facility] [address] [place] [id number] [place] [address] 92557- 9126 Apr, [facility] [address] [place] [id number] [place] [address] 69914- 1107 Apr, [facility] [address] [place] [id number] [place] [address] 73613- 4547 Apr, Sinusitis J32.9 [facility] [address] [place] [id number] [place] [address] 96963- 6359 Apr, Neuropathy G62.9 [facility] [address] [place] [id number] [place] [address] 86721- 3605 Mar, [facility] [address] [place] [id number] [place] [address] 71925- 0656 Mar, [facility] [address] [place] [id number] [place] [address] 63197- 2484 Mar, Diabetes mellitus E11.9 ; PVD (peripheral vascular disease) I73.9 ; Neuropathy G62.9 ; GERD (gastroesophageal reflux disease) K21.9 ; Renal failure N19 ; Asthma J45.909 ; Insomnia G47.00 ; Environmental allergies Z91.09 ; Sinusitis J32.9 ; Cough R05 ; Edema R60.9 ; HTN (hypertension) I10 and Hypercholesterolemia E78.0 [facility] [address] [place] [id number] [place] [address] 17779 -8012 Mar, Dysuria R30.0 ; Vomiting, unspecified R11.10 ; Benign essential hypertension I10 and Dizziness R42 [facility] [address] [place] [id number] [place] [address] 08383- 8796 Mar, [facility] [address] 90067- 7584 Mar, [place] [address] 42202- 6604 Feb, [facility] [address] [place] [id number] [place] [address] 02804- 9474 Feb, [facility] [address] [place] [id number] [place] [address] 13221- 0016 Feb, [facility] [address] [place] [id number] [place] [address] 69983- 7887 Feb, [facility] [address] 56114- 2101 Feb, Joint pain of left hip on movement M25.552 ; Lumbago M54.5 and UTI (urinary tract infection) N39.0 [facility] [address] 56250- 7573 Feb, [facility] [address] [address]- 1492 Feb, [facility] [address] [place] [id number] [place] [address] 37293- 3611 Jan, [facility] [address] [place] [id number] [place] [address] 95304- 5095 Jan, [facility] [address] [place] [id number] [place] [address] 33641- 6607 Jan, [facility] [address] [place] [id number] [place] [address] 37795- 7431 Jan, [facility] [address] [place] [id number] [place] [address] 00039- 7245 Jan, 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 [facility] [address] [place] [id number] [place] [address] 26578- 2472 Dec, Hypertension 401.9 and Diabetes 250.00 [facility] [address] [place] [id number] [place] [address] 09580- 0532 Dec, Diabetes 250.00 ; Influenza vaccine administered V04.81 ; Unspecified peripheral vascular disease 443.9 ; Issue of repeat prescriptions V68.1 ; Unspecified hereditary and idiopathic peripheral neuropathy 356.9 ; Insomnia, unspecified 780.52 ; Hypercholesteremia 272.0 ; Pain in joint, site unspecified 719.40 ; Dizziness 780.4 and PCV-13 (PREVNAR) DX V03.82 [facility] [address] [address]- 7749 Dec, [facility] [address] [place] [id number] [place] [address] 70823- 9032 Dec, [facility] [address] [place] [id number] [place] [address] 75788- 5471 Dec, [facility] [address] [place] [id number] [place] [address] 20008- 3930 Dec, [facility] [address], [place] [address]- 0315 Dec, [facility] [id number] [place] [address] 61622- 5744 Dec, [facility] [address], [place] [address]- 2979 Nov, [facility] [address] [place] [id number] [place] [address] 89784- 4317 Nov, Environmental allergies V15.09 ; Sacroiliitis, not elsewhere classified 720.2 and Cough 786.2 [facility] [address] [place] [id number] [place] [address] 69289- 6736 Oct, [facility] [address] [place] [id number] [place] [address] 59709- 3717 Oct, [facility] [address] [place] [id number] [place] [address] 21005- 3620 Oct, [facility] [id number] [place] [address] 91220- 8840 Sep, [facility] [address] [place] [id number] [place] [address] 21115- 9985 Sep, [facility] [address], [place] [address]- 9092 Sep, Dysuria 788.1 and Diabetes with other specified manifestations, type II or unspecified type, not stated as uncontrolled 250.80 [facility] [address], [place] [address]- 2604 Sep, [facility] [id number] [place] [address] 18471- 5189 Sep, Diabetes with other specified manifestations, type II or unspecified type, not stated as uncontrolled 250.80 [facility] [address], [place] [address]- 7096 Sep, DM w/o complication type II 250.00 ; Unspecified peripheral vascular disease 443.9 ; Pain in joint, pelvic region and thigh 719.45 ; Asthma , unspecified, unspecified status 493.90 ; Hypercholesteremia 272.0 ; Fatigue 780.79 ; UTI (lower urinary tract infection) 599.0 and Essential hypertension 401.9 [facility] [address], [place] [address]- 2645 Sep, [facility] [address] [place] [id number] [place] [address] 18087- 3206 Sep, [facility] [address] [place] [id number] [place] [address] 80970- 3812 Sep, [facility] [address] [place] [id number] [place] [address] 241614- 9576 August, [facility] [address] [place] [id number] [place] [address] 546375- 4255 August, [facility] [address] [place] [id number] [place] [address] 05084- 2462 August, Diabetes with other specified manifestations, type II or unspecified type, not stated as uncontrolled 250.80 [facility] [address] [place] [id number] [place] [address] 288598- 7729 Jul, Peripheral vascular disease 443.9 [facility] [address], [place] [address]- 5484 Jul, [facility] [address], [place] [address]- 1782 Jul, [facility] [address]- 4797 Jun, [facility] [address] [place] [id number] [place] [address] 067715- 5228 Jun, [facility] [address]- 2077 Jun, [facility] [id number] [place] [address] 952942- 5680 Jun, [facility] [place] [facility] [address] [id number] [place] [address]- 7215 Jun, [facility] [place] [facility] [address] [id number] [place] [address]- 8335 Jun, [facility] [place] [facility] [address] [facility] [id number] [place] [address]- 4975 Jun, [facility] [place] [facility] [address] [id number] [place] [address]- 1319 Jun, [facility] [place] [facility] [address] [id number] [place] [address]- 4128 Jun, [facility] [place] [facility] [address] [id number] [place] [address]- 5339 May, [facility] [place] [facility] [address] [facility] [id number] [place] [address]- 8011 May, [facility] [place] [facility] [address] [facility] [id number] [place] [address]- 8170 24 May, 2014 [facility] [place] [facility] [address] [facility] [id number] [place] [address]- 8237 May, 2014 [facility] [place] [facility] [address] [facility] [id number] [place] [address]- 9670 18 May, 2014 [facility] [place] [facility] [address] [facility] [id number] [place] [address]- 9128 May, 2014 [facility] [place] [facility] [address] [facility] [id number] [place] [address]- 7442 17 May, 2014 [facility] [place] [facility] [address] [facility] [id number] [place] [address]- 6990 13 May, 2014 [facility] [place] [facility] [address] [facility] [id number] [place] [address]- 6178 13 May, 2014 [facility] [place] [facility] [address] [facility] [id number] [place] [address]- 8461 12 May, 2014 [facility] [place] [facility] [address] [id number] [place] [address]- 5795 May, [facility] [place] [facility] [address] [id number] [place] [address]- 4065 May, [facility] [place] [facility] [address] [id number] [place] [address]- 6431 May, [facility] [place] [facility] [address] [id number] [place] [address]- 4805 Apr, [facility] [place] [facility] [address] [id number] [place] [address]- 4748 Apr, [facility] [place] [facility] [address] [id number] [place] [address]- 4212 Apr, [facility] [place] [facility] [address] [id number] [place] [address]- 6798 Apr, [facility] [place] [facility] [address] [id number] [place] [address]- 9701 Apr, [facility] [place] [facility] [address] [id number] [place] [address]- 4579 Apr, [facility] [place] [facility] [address] [id number] [place] [address]- 9608 Apr, [facility] [place] [facility] [address] [id number] [place] [address]- 4634 Apr, [facility] [place] [facility] [address] [id number] [place] [address]- 0898 Mar, [facility] [place] [facility] [address] [id number] [place] [address]- 5244 Mar, [facility] [place] [facility] [address] [id number] [place] [address]- 9611 Mar, [facility] [place] [facility] [address] [id number] [place] [address]- 5651 Mar, [facility] [place] [facility] [address] [id number] [place] [address]- 8566 Mar, [facility] [place] [facility] [address] [id number] [place] 6602 Mar, [facility] [place] [facility] [address] [id number] [place] [address]- 3301 Mar, [facility] [place] [facility] [address] [facility] [id number] [place] [address]- 3102 Mar, [facility] [place] [facility] [address] [id number] [place] [address]- 6899 Mar, [facility] [place] [facility] [address] [id number] [place] 3831 Mar, [facility] [place] [facility] [address] [id number] [place] 8314 Mar, [facility] [place] [facility] [address] [id number] [place] [address]- 5551 Mar, [facility] [place] [facility] [address] [id number] [place] [address]- 6876 Mar, [facility] [place] [facility] [address] [id number] [place] [address] Mar, [facility] [place] [facility] [address] [id number] [place] [address] Feb, [facility] [place] [facility] [address] [id number] [place] [address] Feb, [facility] [place] [facility] [address] [id number], [place] [address] Feb, [facility] [place] [facility] [address] [id number] [id number] [address] Feb, [facility] [place] [facility] [address] [id number] [place] [address] Feb, [facility] [place] [facility] [address] [id number] [place] [address] Feb, [facility] [place] [facility] [address] [id number] [place] [address] Feb, [facility] [place] [facility] [address] [id number] [place] [address] Feb, [facility] [place] [facility] [address] [id number] [place] [address] Feb, [facility] [place] [facility] [address] [id number] [place] [address] Feb, [facility] [place] [facility] [address] [id number] [place] [address] Feb, [facility] [place] [facility] [address] [id number] [place] [address] Feb, [facility] [place] [facility] [address] [id number] [place] [address] Feb, [facility] [place] [facility] [address] [id number] [place] [address] Feb, [facility] [place] [facility] [address] [id number] [place] [address] Feb, [facility] [place] [facility] [address] [id number] [place] [address] Feb, [facility] [place] [facility] [address] [facility] [id number] [place] [address] Jan, [facility] [place] [facility] [address] [id number] [place] [address] Jan, [facility] [place] [facility] [address] [id number] [place] [address] Jan, [facility] [place] [facility] [address] [id number] [place] [address] Jan, [facility] [place] [facility] [address] [id number] [place] [address] Jan, [facility] [place] [facility] [address] [id number] [place] [address] Jan, [facility] [place] [facility] [address] [id number] [place] [address] Jan, [facility] [place] [facility] [address] [id number] [place] [address] Jan, [facility] [place] [facility] [address] [id number] [place] [address] Dec, [facility] [place] [facility] [address] [address] [id number] [place] [address] Dec, [facility] [place] [facility] [address] [id number] [place] [address] Nov, [facility] [place] [facility] [address] [id number] [place] [address] 9243 Nov, [facility] [place] [facility] [address] [id number] [place] [address] 3970 Nov, [facility] [place] [facility] [address] [id number] [place] [address] 9390 Nov, [facility] [place] [facility] [address] [id number] [place] [address] 5039 Nov, [facility] [place] [facility] [address] [id number] [place] [address] 1534 Nov, [facility] [place] [facility] [address] [id number] [place] [address] 5204 Oct, [facility] [place] [facility] [address] [id number] [place] [address] 3195 Oct, [facility] [place] [facility] [address] [id number] [place] [address]- 7981 Oct, [facility] [place] [facility] [address] [id number] [place] [address] 9754 Oct, [facility] [place] [facility] [address] [id number] [place] [address]- 6527 Sep, [facility] [place] [facility] [address] [id number] [place] [address] 2154 Sep, [facility] [place] [facility] [address] [id number] [place] [address]- 9674 Sep, [facility] [place] [facility] [address] [id number] [place] [address]- 0951 Sep, [facility] [place] [facility] [address] [id number] [place] [address]- 7864 Sep, [facility] [place] [facility] [address] [id number] [place] [address]- 7210 Sep, [facility] [place] [facility] [address] [id number] [place] [address] 2809 August, [facility] [place] [facility] [address] [id number] [place] [address]- 0188 August, [facility] [place] [facility] [address] [id number] [place] [address]- 8057 August, [facility] [place] [facility] [address] [id number] [place] [address]- 4888 August, [facility] [place] [facility] [address] [id number] [place] [address]- 4076 August, [facility] [place] [facility] [address] [id number] [place] [address]- 6363 August, [facility] [place] [facility] [address] [id number] [place] [address]- 5269 August, [facility] [place] [facility] [address] [id number] [place] [address]- 3160 August, [facility] [place] [facility] [address] [id number] [place] [address]- 3104 August, [facility] [place] [facility] [address] [id number] [place] [address]- 8285 August, [facility] [place] [facility] [address] [id number] [place] [address]- 6023 August, [facility] [place] [facility] [address] [id number] [place] [address]- 0518 August, [facility] [place] [facility] [address] [id number] [place] [address]- 6511 Jul, [facility] [place] [facility] [address] [id number] [place] [address]- 6368 Jul, [facility] [place] [facility] [address] [id number] [place] [address]- 9756 Jul, [facility] [place] [facility] [address] [id number] [place] [address]- 2541 Jul, [facility] [place] [facility] [address] [id number] [place] [address]- 3984 Jul, [facility] [place] [facility] [address] [id number] [place] [address]- 3689 Jul, [facility] [place] [facility] [address] [id number] [place] [address]- 8771 Jul, [facility] [place] [facility] [address] [id number] [place] [address] 8446 Jul, [facility] [place] [facility] [address] [id number] [place] [address]- 9448 Jul, [facility] [place] [facility] [address] [id number] [place] [address]- 7059 Jul, [facility] [place] [facility] [address] [id number] [place] [address]- 8470 Jul, [facility] [place] [facility] [address] [id number] [place] [address]- 2440 Jun, [facility] [place] [facility] [address] [id number] [place] [address]- 4121 Jun, [facility] [place] [facility] [address] [id number] [place] [address]- 5997 Jun, [facility] [place] [facility] [address] [id number] [place] [address]- 7390 Jun, [facility] [place] [facility] [address] [id number] [place] [address]- 0754 Jun, [facility] [place] [facility] [address] [id number] [place] [address]- 3300 Jun, [facility] [place] [facility] [address] [id number] [place] [address] Jun, [facility] [place] [facility] [address] [id number] [place] [address]- 5745 Jun, [facility] [place] [facility] [address] [id number] [place] [address]- 9890 Jun, [facility] [place] [facility] [address] [id number] [place] [address]- 1022 May, [facility] [place] [facility] [address] [id number] [place] [address]- 6592 May, [facility] [place] [facility] [address] [id number] [place] [address]- 8920 May, [facility] [place] [facility] [address] [id number] [place] [address]- 7146 Apr, [facility] [place] [facility] [address] [id number] [place] [address]- 2847 Apr, [facility] [place] [facility] [address] [id number] [place] [address]- 2680 Apr, [facility] [place] [facility] [address] [id number] [place] [address]- 9633 Apr, [facility] [place] [facility] [address] [id number] [place] [address]- 7950 Apr, [facility] [place] [facility] [address] [id number] [place] [address]- 9649 Apr, [facility] [place] [facility] [address] [id number] [place] [address]- 7545 Apr, [facility] [place] [facility] [address] [id number] [place] [address]- 4045 08 Apr, 2013 [facility] [address] [id number] [place] [address]- 7720 05 Mar, 2012 [facility] [place] [facility] [address] [id number] [place] 05 Mar, 2012 [facility] [address] [id number] [place] [address]- 3099 Feb, [facility] [place] [facility] [address] [id number] [place] [address]- 8319 Feb, [facility] [place] [facility] [address] [id number] [place] [address] Jan, [facility] [place] [facility] [address] [id number] [place] [address]- 8855 31 Jan, 2013 [facility] [place] [facility] [address] [id number] [place] [address]- 3848 Jan, [facility] [address] [id number] [place] [address]- 0152 28 Jan, 2013 [facility] [place] [facility] [address] [id number] [place] [address]- 7935 24 Jan, 2013 [facility] [address] [id number] [place] [address]- 9462 24 Jan, 2013 [facility] [place] [facility] [address] [id number] [place] [address]- 1572 Jan, [facility] [place] [facility] [address] [id number] [place] [address]- 5220 21 Jan, 2013 [facility] [place] [facility] [address] [id number] [place] 17 Jan, 2013 [facility] [place] [facility] [address] [id number] [place] [address]- 1732 17 Jan, 2012 [facility] [place] [facility] [address] [id number] [place] [address]- 2308 14 Jan, 2013 [facility] [place] [facility] [address] [id number] [place] [address]- 6490 14 Jan, 2012 [facility] [place] [facility] [address] [id number] [place] [address]- 3575 10 Jan, 2012 [facility] [place] [facility] [address] [id number] [place] [address]- 8963 10 Jan, 2012 [facility] [place] [facility] [address] [id number] [place] [address]- 2171 10 Jan, 2012 [facility] [place] [facility] [address] [id number] [place] [address]- 1397 10 Jan, 2012 [facility] [place] [facility] [address] [id number] [place] [address]- 3799 09 Jan, 2012 [facility] [place] [facility] [address] [id number] [place] [address]- 6129 09 Jan, 2012 [facility] [place] [facility] [address] [id number] [place] [address]- 3305 08 Jan, 2013 [facility] [place] [facility] [address] [id number] [place] [address]- 9806 07 Jan, 2013 [facility] [place] [facility] [address] [id number], [place] [address]- 0056 07 Jan, 2013 [facility] [place] [facility] [address] [id number], [place] [address]- 4777 04 Jan, 2013 [facility] [place] [facility] [address] [id number], [place] [address]- 9500 04 Jan, 2013 [facility] [place] [facility] [address] [id number], [place] [address]- 8394 17 Dec, 2012 [facility] [place] [facility] [address] [id number], [place] [address]- 3366 16 Dec, 2012 [facility] [place] [facility] [address] [id number], [place] [address]- 2220 12 Nov, 2012 [facility] [place] [facility] [address] [id number], [place] [address]- 0690 Oct, [facility] [address] [id number] [place] [address]- 2898 Oct, [facility] [place] [facility] [address] [id number] [place] [address]- 9620 Oct, [facility] [place] [facility] [address] [id number] [place] [address]- 6736 Oct, [facility] [place] [facility] [address] [id number] [place] [address]- 0766 Oct, [facility] [place] [facility] [address] [id number] [place] [address]- 7051 Oct, [facility] [place] [facility] [address] [id number] [place] [address]- 3545 Sep, [facility] [address] [id number] [place] [address]- 7698 Sep, [facility] [place] [facility] [address] [id number] [place] [address]- 7714 Sep, [facility] [place] [facility] [address] [id number] [place] [address]- 3935 Jul, [facility] [place] [facility] [address] [id number] [place] [address]- 2398 Jul, [facility] [place] [facility] [address] [id number] [place] [address]- 6064 Jul, [facility] [place] [facility] [address] [id number] [place] [address]- 0013 Jun, [facility] [place] [facility] [address] [id number] [place] [address]- 8769 Jun, [facility] [place] [facility] [address] [id number] [place] [address]- 7570 Jun, [facility] [place] [facility] [address] [id number] [place] [address]- 2512 Jun, [facility] [place] [facility] [address] [id number] [place] [address] 2546 Jun, [facility] [address] [id number] [place] [address]- 6229 Jun, [facility] [place] [facility] [address] [id number] [place] [address]- 2546 May, [facility] [place] [facility] [address] [id number] [place] [address]- 1176 May, [facility] [place] [facility] [address] [id number] [place] [address]- 3984 Apr, [facility] [place] [facility] [address] [id number] [place] [address]- 7448 Apr, [facility] [address] [id number] [place] [address]- 2552 Apr, [facility] [address] [id number] [place] [address]- 3985 Apr, [facility] [address] [id number] [place] [address]- 3218 Apr, [facility] [address] [id number] [place] [address]- 8076 31 Mar, 2012 [facility] [address] [id number] [place] [address]- 4270 31 Mar, 2012 [facility] [place] [facility] [address] [id number] [place] [address]- 3496 27 Mar, 2012 [facility] [place] [facility] [address] [id number] [place] [address] 2541 27 Mar, 2012 [facility] [place] [facility] [address] [id number] [place] [address]- 5146 14 Mar, 2012 [facility] [place] [facility] [address] [id number] [place] [address] 2546 14 Mar, 2012 [facility] [place] [facility] [address] [id number] [place] [address]- 7403 Mar, [facility] [place] [facility] [address] [id number] [place] [address]- 2428 Mar, [facility] [place] [facility] [address] [id number] [place] [address]- 1296 Mar, [facility] [place] [facility] [address] [facility] [id number] [place] Mar, [facility] [place] [facility] [address] [id number] [place] [address]- 9268 Feb, [facility] [place] [facility] [address] [id number] [place] [address]- 6277 Feb, [facility] [place] [facility] [address] [id number] [place] [address]- 3560 Feb, [facility] [place] [facility] [address] [facility] [id number] [place] [address]- 6266 Feb, [facility] [place] [facility] [address] [id number], [place] [address]- 3521 Feb, [facility] [place] [facility] [address] [id number] [place] [address]- 0465 Feb, [facility] [place] [facility] [address] [facility] [id number] [place] [address]- 2290 Feb, [facility] [place] [facility] [address] [id number], [place] [address]- 8359 Feb, [facility] [place] [facility] [address] [id number], [place] [address]- 0895 Feb, [facility] [place] [facility] [address] [id number] [place] [address]- 7834 Feb, [facility] [place] [facility] [address] [facility] [id number], [place] [address]- 3960 Jan, [facility] [place] [facility] [address] [facility] [id number], [place] [address]- 5218 Jan, [facility] [place] [facility] [address] [id number] [place] [address]- 3024 03 Jan, 2012 [facility] [place] [facility] [address] [id number] [place] [address]- 5637 01 Jan, 2012 [facility] [place] [facility] [address] [id number] [place] [address] 2546 28 Dec, 2011 [facility] [place] [facility] [address] [id number] [place] [address] 2546 25 Sep, 2011 [facility] [place] [facility] [address] [id number] [place] [address] 2546 18 Sep, 2011 [facility] [place] [facility] [address] [id number] [place] [address]- 2386 18 Sep, 2011 [facility] [place] [facility] [address] [id number] [place] [address]- 7171 17 Sep, 2011 [facility] [place] [facility] [address] [id number] [place] [address]- 3461 14 Dec, 2011 [facility] [place] [facility] [address] [id number] [place] [address]- 3721 13 Dec, 2011 [facility] [place] [facility] [address] [id number] [place] [address]- 8955 13 Dec, 2011 [facility] [place] [facility] [address] [id number] [place] [address]- 2543 06 Dec, 2011 [facility] [place] [facility] [address] [id number] [place] [address] 2540 31 Nov, 2011 [facility] [place] [facility] [address] [id number] [place] [address] 2544 30 Nov, 2011 [facility] [place] [facility] [address] [id number] [place] [address]- 6560 Nov, [facility] [place] [facility] [address] [id number] [place] [address]- 2543 09 Nov, 2011 [facility] [place] [facility] [address] [id number] [place] [address]- 2905 Sep, [facility] [place] [facility] [address] [id number] [place] [address]- 8546 Sep, [facility] [address] [id number] [place] [address]- 2225 Sep, [facility] [address] [id number] [place] [address]- 6425 August, [facility] [address] [id number] [place] [address]- 7141 August, [facility] [address] [id number] [place] [address]- 6244 August, [facility] [address] [id number] [place] [address]- 3535 August, [facility] [address] [id number] [place] [address]- 0269 August, [facility] [address] [id number] [place] [address]- 0391 August, [facility] [address] [id number] [place] [address]- 3953 August, [facility] [address] [id number] [place] [address]- 6797 August, [facility] [address] [id number] [place] [address]- 9411 August, [facility] [address] [id number] [place] [address]- 1240 Jul, [facility] [place] [facility] [address] [id number] [place] [address]- 9833 Jun, [facility] [place] [facility] [address] [id number] [place] [address]- 3661 16 Jun, 2011 [facility] [place] [facility] [address] [id number] [place] [address]- 5104 Jun, [facility] [address] [id number] [place] [address]- 2470 06 Jun, 2011 [facility] [address] [id number] [place] [address]- 5096 05 Jun, 2011 [facility] [place] [facility] [address] [id number] [place] [address]- 9736 04 Jun, 2011 [facility] [place] [facility] [address] [facility] [id number] [place] [address]- 5296 Jun, [facility] [place] [facility] [address] [id number] [place] [address]- 4317 Jun, [facility] [place] [facility] [address] [id number] [place] [address]- 1300 27 May, 2011 [facility] [place] [facility] [address] [id number] [place] [address]- 5560 21 May, 2011 [facility] [address] [facility] [id number] [place] [address]- 6122 20 May, 2011 [facility] [place] [facility] [address] [id number] [place] [address]- 4065 19 May, 2011 [facility] [place] [facility] [address] [facility] [id number] [place] [address]- 5901 17 May, 2011 [facility] [place] [facility] [address] [facility] [id number] [place] [address]- 7163 16 May, 2011 [facility] [place] [facility] [address] [facility] [id number] [place] [address]- 3182 14 May, 2011 [facility] [place] [facility] [address] [id number] [place] [address]- 7716 19 Apr, 2011 [facility] [place] [facility] [address] [id number] [place] [address]- 3963 16 Apr, 2011 [facility] [place] [facility] [address] [facility] [id number] [place] [address]- 6906 13 Apr, 2011 [facility] [place] [facility] [address] [facility] [id number], [place] [address]- 9209 11 Apr, 2011 [facility] [place] [facility] [address] [id number] [place] [address]- 2666 Apr, [facility] [place] [facility] [address] [id number] [place] [address]- 0873 Apr, [facility] [place] [facility] [address] [id number] [place] [address] Apr, [facility] [place] [facility] [address] [id number] [place] [address] Apr, [facility] [place] [facility] [address] [id number] [place] [address] Mar, [facility] [place] [facility] [address] [id number] [place] [address] Mar, [facility] [place] [facility] [address] [id number] [place] [address] Feb, [facility] [place] [facility] [address] [id number] [place] [address] Feb, [facility] [place] [facility] [address] [id number] [place] [address] Feb, [facility] [place] [facility] [address] [id number] [place] [address] Feb, [facility] [place] [facility] [address] [id number] [place] [address] Feb, [facility] [place] [facility] [address] [id number] [place] [address] Jan, [facility] [place] [facility] [address] [id number] [place] [address] Nov, [facility] [place] [facility] [address] [id number] [place] [address] 14 Sep, 2010 [facility] [place] [facility] [address] [id number] [place] [address] August, [facility] [place] [facility] [address] [id number] [place] [address] 16 Jun, 2010 [facility] [address] [id number] [place] [address] 14 May, 2010 [facility] [place] [facility] [address] [id number] [place] [address] 18 Apr, 2010 [facility] [place] [facility] [address] [id number] [place] [address] 22 Mar, 2010 [facility] [place] [facility] [address] [id number] [place] [address] 14 Mar, 2010 [facility] [place] [facility] [address] [id number] [place] [address] 14 Mar, 2010 [facility] [place] [facility] [address] [id number] [place] [address] 12 Feb, 2010 [facility] [place] [facility] [address] [id number] [place] [address] Feb, [facility] [place] [facility] [address] [id number] [place] [address] 12 Jan, 2010 [facility] [place] [facility] [address] [id number] [place] [address] Jan, [facility] [place] [facility] [address] [id number] [place] [address] Jan, [facility] [place] [facility] [address] [id number] [place] [address] Oct, [facility] [place] [facility] [address] [id number] [place] [address] 12 Oct, 2009 [facility] [place] [facility] [address] [id number] [place] [address] 15 Apr, 2009 [facility] [place] [facility] [address] [id number] [place] [address] Mar, [facility] [place] [facility] [address] [id number] [place] [address] Mar, [facility] [place] [facility] [address] [facility] [id number] [place] [id number] Jan, [facility] [address] [facility] [id number] [place] [id number] Dec, IMMUNIZATIONS No Known Immunizations SOCIAL HISTORY Never Assessed REASON FOR VISIT Diabetes-Jeanne DAN PLAN OF CARE VITAL SIGNS Height 63 in 2017-10-01 Weight 126.2 lbs 2017-10-01 Temperature 97.9 degrees Fahrenheit 2017-10-01 Heart Rate 69 bpm 2017-10-01 Respiratory Rate 20 2017-10-01 Oximetry on room air:96 % 2017-10-01 BMI 22.35 kg/m2 2017-10-01 Blood pressure systolic 130 mmHg 2017-10-01 Blood pressure diastolic 76 mmHg 2017-10-01 MEDICATIONS Medication Instructions Dosage Frequency Start Date End Date Duration Status Albuterol Sulfate 90 mcg/actuation 2 puffs by Inhalation route every 4-6 hours as neededPRNcough or wheezing August, Active Gabapentin 300MG Orally 3 times a day 1 capsule by Oral route 3 times per day 8h Active Flonase 50 MCG/ACT Nasally Once a day 1 spray in each nostril 24h 25 Feb, 2015 Active Hydrochlorothiazide 50MG 1 tablet 24h 30 Active Levemir Flexpen 100 UNIT/ML Subcutaneous 2 times a day Inject 25 units in AM and PM 12h Active Amitriptyline HCl 150 MG Orally Once a day 1 tablet 24h 17 Feb, 2017 Active Metformin HCl 1000 MG Orally Twice a day 1 tablet with meals 12h Feb, Active Diclofenac Sodium 50MG DR Orally Three times a day 1 tablet 8h Active Vytorin 10-40 MG Orally Once a day 1 tablet 24h Active Pen [place] 32G X 4 MM subcutaneously 2 times a day use to Inject insulin 12h Feb, 90 days Active Atenolol 100MG 1 tablet 24h 30 Active Celexa 20 mg Orally Once a day 1 tablet 24h Active Mucinex 600 MG Orally every 12 hrs 1 tablet as needed 12h 10 May, 2016 Active Promethazine-Codeine 6.25-10 MG/5ML Orally prior to bed 5 ml as needed Jun, 10 days Not-Taking Symbicort 160-4.5 MCG/ACT Inhalation Twice a day 2 puffs 12h 14 Jun, 2017 Active ProAir HFA 108 (90 Base) MCG/ACT Inhalation every 4 hrs 2 puffs as needed for cough, wheeze or SOB 4h 07 May, 2016 30 days Active Percocet 5-325 MG Orally every 6 hrs prn 1 tablet as needed Sep, Active RESULTS No Results PROCEDURES Procedure Date Ordered Result Body Site VENIPUNCT, ROUTINE* October 01, 2017 GLYCATED HEMOGLOBIN TEST October 01, 2017 MICROALBUMIN, SEMIQUANT October 01, 2017 COMPLETE CBC W/AUTO DIFF WBC October 01, 2017 C-REACTIVE PROTEIN October 01, 2017 LIPID PANEL October 01, 2017 09 PANEL (PROFILE 1) October 01, 2017 ASSAY THYROID STIM HORMONE October 01, 2017 COMPREHEN METABOLIC PANEL October 01, 2017 INSTRUCTIONS MEDICATIONS ADMINISTERED No Known Medications MEDICAL [...]
--- OUTSIDE RECORDS SUMMARY | 2018-02-13 03:52 | XMS REPORT ---
Author Author NADIYA CARMONA Organization [facility] Address [address] [place] [address] Care Team Providers Care Concrete Craftsman Name Role Phone MATHEW NADIYA Unavailable PROBLEMS Type Condition ICD9-CM Code MSJ49-MU Code Onset Dates Condition Status SNOMED Code Problem Asthma J45.909 Active 157680671 Problem Reactive depression F32.9 Active 80315251 Problem Secondary hypertension I15.9 Active 64724158 Problem Open bite of left hand, initial encounter S61.452A Active 401762058 Problem Bitten by cat, initial encounter W55.01XA Active 425587402 Problem Moderate persistent asthma with exacerbation J45.41 Active 406228941 Problem Bronchitis J40 Active 51947308 Problem Simple chronic bronchitis J41.0 Active 16120280 Problem Recurrent major depressive disorder, in full remission F33.42 Active 255355237 Problem Renal failure N19 Active 11037978 Problem Joint pain of left hip on movement M25.552 Active 508431877 Problem Hypercholesterolemia E78.00 Active 31941696 Problem Environmental allergies Z91.09 Active 934105804 Problem PVD (peripheral vascular disease) I73.9 Active 706037048 Problem Diabetes mellitus E11.9 Active 02979211 Problem Proteinuria R80.9 Active 62883106 Problem Insomnia G47.00 Active 216778161 Problem Neuropathy G62.9 Active 709350178 Problem GERD (gastroesophageal reflux disease) K21.9 Active 143044783 ALLERGIES No Information ENCOUNTERS Encounter Location Date Diagnosis [facility] [id number] [address] Oct, Dermatitis due to plants, including poison chris, sumac, and oak L25.5 [facility] [address] [id number] [address] Sep, Diabetes mellitus E11.9 and Medication management Z79.899 [facility] [id number] [place] [address] 40986- 5800 Sep, [place] [address] [address] August, Neuropathy G62.9 [facility] [address] [address] August, Open bite of left hand, initial encounter S61.452A ; Encounter for immunization Z23 and Bitten by cat, initial encounter W55.01XA [place] [address] [address]32[address] 05 Jul, 2017 Environmental allergies Z91.09 [place] [address] 96661- 2478 Jun, [place] [address] 50785- 0046 Jun, Simple chronic bronchitis J41.0 ; PVD (peripheral vascular disease) I73.9 and Recurrent major depressive disorder, in full remission F33.42 [facility] [address] [id number] 13 Jun, 2017 Dental examination Z01.20 [facility] [id number] [place] [address]694 [address]1412 Jun, Moderate persistent asthma with exacerbation J45.41 [place] [address] 80559- 8369 May, Neuropathy G62.9 and Diabetes mellitus E11.9 [place] [id number] [place] [address] 18856- 7391 Apr, [facility] [address] 247[address] Apr, Cough R05 [place] [address] 74490- 4192 Feb, [place] [address] 04192- 9247 Feb, [facility] [address] 6[address]- 9704 Feb, Diabetes mellitus E11.9 ; Neuropathy G62.9 ; Joint pain of left hip on movement M25.552 and Encounter for immunization Z23 [facility] [address] 07272- 1448 Feb, [facility] [address] 23749- 4872 Feb, Diabetes mellitus E11.9 [facility] [address] 54944- 7189 Feb, [facility] [address] 12462- 5228 Jan, [facility] [address] 21216- 4495 Jan, Secondary hypertension I15.9 [facility] [address] 73796- 9605 Dec, Diabetes mellitus E11.9 [facility] [address] [id number] Nov, Encounter for dental examination Z01.20 [facility] [id number] [place] [address] 47044 -4881 Oct, Allergic contact dermatitis due to plants, except food L23.7 [facility] [address] 36587- 4260 Oct, [facility] [address] 78392- 3451 Oct, Diabetes mellitus E11.9 ; PVD (peripheral vascular disease) I73.9 ; Neuropathy G62.9 ; GERD (gastroesophageal reflux disease) K21.9 ; Insomnia G47.00 ; Environmental allergies Z91.09 ; Secondary hypertension I15.9 ; Reactive depression F32.9 ; Hypercholesterolemia E78.00 and Joint pain of left hip on movement M25.552 [facility] [id number] [place] [address] 03864- 0557 Sep, Diabetes mellitus E11.9 [facility] [id number] [place] [address] 18163- 3216 Sep, Diabetes mellitus E11.9 [facility] [address] 81841- 9656 Sep, Diabetes mellitus E11.9 [facility] [address] 92342- 4366 Sep, Neuropathy G62.9 [place] [address] 80831- 5512 August, [place] [address] 21988- 9522 Jul, [facility] [address] 44456- 1602 Jun, [facility] [address] 40203- 3255 Jun, Diabetes mellitus E11.9 ; PVD (peripheral vascular disease) I73.9 ; Neuropathy G62.9 ; Joint pain of left hip on movement M25.552 ; Renal failure N19 ; Asthma J45.909 ; Reactive depression F32.9 ; Pure hypercholesterolemia, unspecified E78.00 and Insomnia G47.00 [facility] [id number] [place] [address] 88022- 2736 Jun, Joint pain of left hip on movement M25.552 and Diabetes mellitus E11.9 [facility] [address] 45880- 2832 Jun, [facility] [id number] [place] [address] 08377 [address] May, Cough R05 and Bronchitis J40 [facility] [address] [place] [address] May, [facility] [id number] [place] [address] 83379- 3858 May, [facility] [id number] [place] [address] 41905- 2204 May, Asthma J45.909 and Bronchitis J40 [facility] [address] 26678- 7281 May, [facility] [address] 35255- 6720 May, Bronchitis J40 [facility] [address] 11520- 0321 06 May, 2016 [facility] [id number] [place] [address] 48248- 7793 Apr, Diabetes mellitus E11.9 ; PVD (peripheral vascular disease) I73.9 ; GERD (gastroesophageal reflux disease) K21.9 ; Asthma J45.909 ; Insomnia G47.00 ; Environmental allergies Z91.09 ; Secondary hypertension I15.9 ; Joint pain of left hip on movement M25.552 ; Hypercholesterolemia E78.0 and Reactive depression F32.9 [place] [id number] [place] [address] 86026- 9043 Mar, Diabetes mellitus E11.9 ; PVD (peripheral vascular disease) I73.9 and Hypercholesterolemia E78.0 [facility] [id number] [place] [address] 47005- 1832 Mar, Diabetes mellitus E11.9 and Hypercholesterolemia E78.0 [facility] [address] 48015- 0258 Mar, [facility] [id number] [place] [address] 46356- 3870 Feb, [facility] [address] 65721- 2225 Feb, [place] [id number] [place] [address] 28124- 1312 Feb, [place] [address] 50853- 2815 Jan, Encounter for immunization Z23 [place] [address] 03137- 8487 Jan, [place] [address] 85025- 9814 Dec, [place] [id number] [place] [address] 41066- 9511 Dec, Diabetes mellitus E11.9 ; PVD (peripheral vascular disease) I73.9 ; GERD (gastroesophageal reflux disease) K21.9 ; Insomnia G47.00 ; Joint pain of left hip on movement M25.552 ; Asthma J45.909 ; Environmental allergies Z91.09 ; Hypercholesterolemia E78.0 ; Essential hypertension I10 and Neuropathy G62.9 [place] [id number] [place] [address] 53118- 3130 Nov, [place] [address] 09734- 9141 Nov, [place] [id number] [place] [address] 12213- 2326 Oct, PVD (peripheral vascular disease) I73.9 and Diabetes mellitus E11.9 [place] [id number] [place] [address] 86925- 5745 Sep, Diabetes mellitus E11.9 ; PVD (peripheral vascular disease) I73.9 ; Neuropathy G62.9 ; Joint pain of left hip on movement M25.552 ; GERD ( gastroesophageal reflux disease) K21.9 ; Asthma J45.909 ; Insomnia G47.00 ; Secondary hypertension I15.9 and Hypercholesteremia E78.0 [place] [id number] [place] [address] 52995- 6815 August, [facility] [id number] [place] [address] 85979- 7171 August, Neuropathy G62.9 [facility] [id number] [place] [address] 32231- 2206 August, Neuropathy G62.9 [facility] [id number] [place] [address] 68342- 5813 Jun, Diabetes mellitus E11.9 ; Joint pain of left hip on movement M25.552 ; PVD (peripheral vascular disease) I73.9 ; Neuropathy G62.9 ; GERD (gastroesophageal reflux disease) K21.9 ; Asthma J45.909 ; Insomnia G47.00 ; Environmental allergies Z91.09 ; HTN (hypertension) I10 and Hypercholesteremia E78.0 [facility] [id number] [place] [address] 86242- 7219 Jun, [facility] [address] 84017- 2156 Jun, [facility] [id number] [place] [address] 74951- 2207 Jun, [facility] [id number] [place] [address] 82360- 6702 Apr, [facility] [id number] [place] [address] 82757- 5147 Apr, [facility] [id number] [place] [address] 93388- 1991 Apr, Sinusitis J32.9 [facility] [id number] [place] [address] 79491- 1338 Apr, Neuropathy G62.9 [facility] [id number] [place] [address] 30695- 8484 Mar, [facility] [id number] [place] [address] 48986- 4393 Mar, [facility] [address] 35767- 7504 Mar, Diabetes mellitus E11.9 ; PVD (peripheral vascular disease) I73.9 ; Neuropathy G62.9 ; GERD (gastroesophageal reflux disease) K21.9 ; Renal failure N19 ; Asthma J45.909 ; Insomnia G47.00 ; Environmental allergies Z91.09 ; Sinusitis J32.9 ; Cough R05 ; Edema R60.9 ; HTN (hypertension) I10 and Hypercholesterolemia E78.0 [facility] [address] 27576 -9601 Mar, Dysuria R30.0 ; Vomiting, unspecified R11.10 ; Benign essential hypertension I10 and Dizziness R42 [facility] [address] 82780- 9375 Mar, [facility] [address] 38307- 1891 Mar, [facility] [address] 35045- 0155 Feb, [facility] [address] 93034- 2787 Feb, [facility] [address] 35543- 5087 Feb, [facility] [address] 52397- 1421 Feb, [facility] [address] 58126- 7588 Feb, Joint pain of left hip on movement M25.552 ; Lumbago M54.5 and UTI (urinary tract infection) N39.0 [facility] [address] 75769- 3641 Feb, [facility] [address] 54775- 5261 Feb, [facility] [address] [place] [address]- 6263 Jan, [facility] [id number] [place] [address] 93839- 8023 Jan, [facility] [id number] [place] [address] 15563- 4947 Jan, [facility] [id number] [place] [address] 66361- 2907 Jan, [facility] [address] 50720- 3059 Jan, 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 [facility] [address] 32273- 2807 30 Dec, 2014 Hypertension 401.9 and Diabetes 250.00 [facility] [id number] [place] [address] 01338- 0526 Dec, Diabetes 250.00 ; Influenza vaccine administered V04.81 ; Unspecified peripheral vascular disease 443.9 ; Issue of repeat prescriptions V68.1 ; Unspecified hereditary and idiopathic peripheral neuropathy 356.9 ; Insomnia, unspecified 780.52 ; Hypercholesteremia 272.0 ; Pain in joint, site unspecified 719.40 ; Dizziness 780.4 and PCV-13 (PREVNAR) DX V03.82 [facility] [id number] [place] [address] 21705- 4355 Dec, [facility] [id number] [place] [address] 16210- 4627 Dec, [facility] [id number] [place] [address] 64091- 7364 Dec, [facility] [id number] [place] [address] 72272- 9553 Dec, [facility] [id number] [place] [address] 66609- 1613 Dec, [facility] [id number] [place] [address] 59796- 8178 Dec, [facility] [address] [place] [address] 55063- 7779 Nov, [facility] [id number] [place] [address] 12968- 6686 Nov, Environmental allergies V15.09 ; Sacroiliitis, not elsewhere classified 720.2 and Cough 786.2 [place] [address] 19521- 5944 Oct, [facility] [id number] [place] [address] 98623- 0510 Oct, [facility] [id number] [place] [address] 78485- 9361 Oct, [facility] [id number] [place] [address] 75185- 2126 Sep, [facility] [id number] [place] [address] 09250- 0211 Sep, [facility] [id number] [place] [address] 448573- 5377 Sep, Dysuria 788.1 and Diabetes with other specified manifestations, type II or unspecified type, not stated as uncontrolled 250.80 [place] [id number] [place] [address] 27545- 4605 Sep, [facility] [id number] [place] [address] 166154- 9701 Sep, Diabetes with other specified manifestations, type II or unspecified type, not stated as uncontrolled 250.80 [place] [id number] [place] [address] 58518- 8611 Sep, DM w/o complication type II 250.00 ; Unspecified peripheral vascular disease 443.9 ; Pain in joint, pelvic region and thigh 719.45 ; Asthma , unspecified, unspecified status 493.90 ; Hypercholesteremia 272.0 ; Fatigue 780.79 ; UTI (lower urinary tract infection) 599.0 and Essential hypertension 401.9 [facility] [address] [address]- 2783 Sep, [facility] [address] [address]- 7121 Sep, [facility] [address] 4748 Sep, [facility] [id number] [address]- 6535 August, [facility] [address] [address]- 4297 August, [facility] [id number] [place] [address] 04525- 5109 August, Diabetes with other specified manifestations, type II or unspecified type, not stated as uncontrolled 250.80 [facility] [address] [address]- 8397 Jul, Peripheral vascular disease 443.9 [facility] [address] [address]- 5478 Jul, [facility] [address] [address]- 1393 Jul, [facility] [address] [address]- 3469 Jun, [facility] [address] [address]- 2912 Jun, [facility] [address] [address]- 5912 Jun, [facility] [address] [address]- 1391 Jun, [facility] [address] [address]- 6432 Jun, [facility] [address] [address]- 5320 Jun, [facility] [place] [facility] [address] [id number] [place] [address]- 2595 Jun, [facility] [place] [facility] [address] [id number] [place] [address]- 8280 Jun, 2014 [facility] [place] [facility] [address] [facility] [id number] [place] [address]- 5081 Jun, [facility] [place] [facility] [address] [facility] [id number] [place] [address]- 2104 May, 2014 [facility] [place] [facility] [address] [id number] [place] [address]- 2150 May, 2014 [facility] [place] [facility] [address] [facility] [id number] [place] [address]- 3365 24 May, 2014 [facility] [place] [facility] [address] [facility] [id number] [place] [address]- 6394 May, 2014 [facility] [place] [facility] [address] [facility] [id number] [place] [address]- 6274 May, 2014 [facility] [place] [facility] [address] [facility] [id number] [place] [address]- 7751 May, 2014 [facility] [place] [facility] [address] [facility] [id number] [place] [address]- 7393 May, 2014 [facility] [place] [facility] [address] [facility] [id number] [place] [address]- 0216 13 May, 2014 [facility] [place] [facility] [address] [id number] [place] [address] 13 May, 2014 [facility] [place] [facility] [address] [id number] [place] [address] May, 2014 [facility] [place] [facility] [address] [facility] [id number] [place] [address] 12 May, 2014 [facility] [place] [facility] [address] [id number] [place] [address] May, [facility] [place] [facility] [address] [id number] [place] [address] May, [facility] [place] [facility] [address] [id number] [place] [address] Apr, [facility] [place] [facility] [address] [id number] [place] [address] Apr, [facility] [place] [facility] [address] [id number] [place] [address] Apr, [facility] [place] [facility] [address] [id number] [place] [address] Apr, [facility] [place] [facility] [address] [id number] [place] [address] Apr, [facility] [place] [facility] [address] [id number] [place] [address] Apr, [facility] [place] [facility] [address] [id number] [place] [address] Apr, [facility] [place] [facility] [address] [id number] [place] [address] Apr, [facility] [place] [facility] [address] [id number] [place] [address] Mar, [facility] [place] [facility] [address] [id number] [place] [address] Mar, [facility] [place] [facility] [address] [id number] [place] [address] Mar, [facility] [place] [facility] [address] [id number] [place] [address] Mar, [facility] [place] [facility] [address] [id number] [place] [address] Mar, [facility] [place] [facility] [address] [id number] [place] [address] Mar, [facility] [place] [facility] [address] [id number] [place] [address] Mar, [facility] [place] [facility] [address] [id number] [place] [address]- [address] Mar, [facility] [place] [facility] [address] [id number] [place] [address] Mar, [facility] [place] [facility] [address] [id number] [place] [address]- [address] Mar, [facility] [place] [facility] [address] [id number] [place] [address]- [address] Mar, [facility] [place] [facility] [address] [id number] [place] [address] Mar, [facility] [place] [facility] [address] [id number] [place] [address] Mar, [facility] [place] [facility] [address] [id number] [place] [address] Mar, [facility] [place] [facility] [address] [id number] [place] [address] Feb, [facility] [place] [facility] [address] [id number] [place] [address] Feb, [facility] [place] [facility] [address] [id number] [place] [address] Feb, [facility] [place] [facility] [address] [id number] [place] [address] Feb, [facility] [place] [facility] [address] [id number] [address] Feb, [facility] [place] [facility] [address] [id number] [place] [address] Feb, [facility] [place] [facility] [address] [id number] [place] [address] Feb, [facility] [place] [facility] [address] [id number] [place] [address] Feb, [facility] [place] [facility] [address] [id number] [place] [address] Feb, [facility] [place] [facility] [address] [id number] [place] [address] Feb, [facility] [place] [facility] [address] [id number] [place] [address] Feb, [facility] [place] [facility] [address] [id number] [place] [address] Feb, [facility] [facility] [address] [id number] [place] [address] Feb, [facility] [facility] [address] [id number] [place] [address] 2831 Feb, [facility] [place] [facility] [address] [id number] [place] [address]- [address]393 Feb, [facility] [place] [facility] [address] [id number] [place] [address]- 2267 Feb, [facility] [place] [facility] [address] [id number] [place] [address]- 4789 Jan, [facility] [place] [address] [id number] [place] [address]- 8551 Jan, [facility] [place] [facility] [address] [id number] [place] [address]- 3779 Jan, [facility] [place] [facility] [address] [id number] [place] [address]- 6764 Jan, [facility] [address] [id number] [place] [address]- 4502 Jan, [facility] [address] [id number] [place] [address]- 9152 Jan, [facility] [address] [id number] [place] [address]- 6325 Jan, [facility] [address] [id number] [place] [address]- 7351 Jan, [facility] [address] [id number] [place] [address]- 6228 Dec, [facility] [address] [id number] [place] [address]- 6806 Dec, [facility] [address] [id number] [place] [address]- 7924 Nov, [facility] [address] [id number] [place] [address]- 4173 Nov, [facility] [address] [id number] [place] [address]- 7043 Nov, [facility] [address] [id number] [place] [address]- 0765 Nov, [facility] [address] [id number] [place] [address]- 0272 Nov, [facility] [address] [id number] [place] [address]- 6377 Nov, [facility] [address] [id number] [place] [address]- 3339 Oct, [facility] [address] [id number] [place] [address]- 4448 Oct, [facility] [address] [id number] [place] [address]- 4569 Oct, [facility] [address] [id number] [address]- 2939 Oct, [facility] [address] [id number] [place] [address]- 3146 Sep, [facility] [address] [id number] [place] [address]- 9253 Sep, [facility] [address] [id number] [place] [address]- 2680 Sep, [facility] [address] [id number] [place] [address]- 6088 Sep, [facility] [address] [id number] [place] [address]- 3488 Sep, [facility] [address] [id number] [place] [address]- 9716 Sep, [facility] [address] [id number] [place] [address] August, [facility] [address] [id number] [place] [address]- 2398 August, [facility] [address] [id number] [place] [address]- 9683 August, [facility] [address] [id number] [place] [address]- 2681 August, [facility] [address] [id number] [place] [address]- 6043 August, [facility] [address] [id number] [place] [address]- 1761 August, [facility] [address] [id number] [place] [address]- 1976 August, [facility] [address] [id number] [place] [address]- 9655 August, [facility] [address] [id number] [place] [address]- 5029 August, [facility] [address] [id number] [place] [address]- 7474 August, [facility] [address] [id number] [place] [address]- 9379 August, [facility] [address] [id number] [place] [address]- 7177 August, [facility] [address] [id number] [place] [address]- 1827 Jul, [facility] [address] [id number] [place] [address]- 5584 Jul, [facility] [address] [id number] [place] [address]- 9757 Jul, [facility] [address] [id number] [place] [address]- 3783 Jul, [facility] [address] [id number] [place] [address]- 3280 Jul, [facility] [address] [id number] [place] [address]- 2451 Jul, [facility] [address] [id number] [place] [address]- 0294 Jul, [facility] [address] [id number] [place] [address]- 1536 Jul, [facility] [address] [id number] [place] [address]- 1145 Jul, [facility] [address] [id number] [place] [address]- 6927 Jul, [facility] [address] [id number] [place] [address]- 9182 Jul, [facility] [address] [id number] [place] [address]- 8972 Jun, [facility] [address] [id number] [place] [address]- 9114 31 Jun, 2013 [facility] [address] [id number] [place] [address]- 6222 Jun, [facility] [address] [id number] [place] [address]- 6857 Jun, [facility] [address] [id number] [place] [address]- 1180 Jun, [facility] [address] [id number] [place] [address]- 0814 Jun, [facility] [address] [id number] [place] [address]- 6937 Jun, [facility] [address] [id number] [place] [address]- 1795 Jun, [facility] [address] [id number] [place] [address]- 3713 Jun, [facility] [address] [id number] [place] [address]- 3671 May, [facility] [address] [id number] [place] [address]- 7532 May, [facility] [address] [id number] [place] [address]- 7321 May, [facility] [address] [id number] [place] [address]- 8771 Apr, [facility] [address] [id number] [place] [address]- 1071 Apr, [facility] [address] [id number] [place] [address]- 1335 Apr, [facility] [address] [id number] [place] [address]- 7155 Apr, [facility] [address] [id number] [place] [address]- 5859 Apr, [facility] [address] [id number] [place] [address]- 7038 Apr, [facility] [address] [id number] [place] [address]- 2909 Apr, [facility] [address] [id number] [place] [address]- 3328 Apr, [facility] [address] [id number] [place] [address]- 2595 Mar, [facility] [address] [id number] [place] [address]- 8293 Mar, [facility] [address] [id number] [place] [address]- 9804 Feb, [facility] [address] [id number] [place] [address]- 7369 Feb, [facility] [address] [id number] [place] [address]- 7047 Jan, [facility] [address] [id number] [place] [address]- 2494 Jan, [facility] [address] [id number] [place] [address] Jan, [facility] [address] [id number] [place] [address]- 2860 Jan, [facility] [address] [id number] [place] [address]- 5440 Jan, [facility] [address] [id number] [place] [address]- 7113 24 Jan, 2013 [facility] [address] [id number] [place] [address]- 3679 Jan, [facility] [address] [id number] [place] [address]- 0641 Jan, [facility] [address] [id number] [place] [address]- 1923 17 Jan, 2013 [facility] [address] [id number] [place] [address]- 4296 17 Jan, 2013 [facility] [address] [id number] [place] [address]- 9870 14 Jan, 2013 [facility] [address] [id number] [place] 14 Jan, 2013 [facility] [address] [id number] [place] [address]- 1605 Jan, [facility] [address] [id number] [place] [address]- 3896 10 Jan, 2012 [facility] [address] [id number] [place] [address]- 1626 Jan, 2012 [facility] [address] [id number] [place] [address]- 3163 Jan, 2012 [facility] [address] [id number] [place] [address]- 3900 Jan, [facility] [address] [id number] [place] [address]- 3393 Jan, [facility] [address] [id number] [place] [address]- 5151 08 Jan, 2013 [facility] [address] [id number] [place] [address]- 8597 Jan, [facility] [address] [id number] [place] [address]- 0737 Jan, [facility] [address] [id number] [place] [address]- 9684 Jan, [facility] [address] [id number][place] [address]- 3120 Jan, [facility] [address] [id number][place] [address]- 2428 17 Dec, 2012 [facility] [address] [id number], [place] [address]- 5626 16 Dec, 2012 [facility] [address] [id number] [place] [address]- 9231 Nov, [facility] [address] [id number], [place] [address]- 3450 Oct, [facility] [address] [id number][place] [address]- 2549 Oct, [facility] [address] [id number] [place] [address]- 2595 Oct, [facility] [address] [id number] [place] [address]- 4675 Oct, [facility] [address] [id number] [place] [address]- 5799 Oct, [facility] [address] [id number] [place] [address]- 5364 Oct, [facility] [address] [id number] [place] [address]- 9159 Sep, [facility] [address] [id number] [place] [address]- 2927 Sep, [facility] [address] [id number] [place] [address]- 1170 Sep, [facility] [address] [id number] [place] [address]- 3082 Jul, [facility] [address] [id number] [place] [address]- 3819 Jul, [facility] [address] [id number] [place] [address]- 8989 Jul, [facility] [address] [id number] [place] [address]- 9421 Jun, [facility] [address] [id number] [place] [address]- 9645 Jun, [facility] [address] [id number] [place] [address]- 7924 Jun, [facility] [address] [id number] [place] [address]- 6285 Jun, [facility] [address] [id number] [place] [address]- 7077 Jun, [facility] [address] [id number] [place] [address]- 1123 Jun, [facility] [address] [id number] [place] [address]- 8559 May, [facility] [address] [id number] [place] [address]- 7536 May, [facility] [address] [id number] [place] [address]- 7436 Apr, [facility] [address] [id number] [place] [address]- 3346 Apr, [facility] [address] [id number] [place] [address]- 7908 Apr, [facility] [address] [id number] [place] [address]- 7606 Apr, [facility] [address] [id number] [place] [address]- 2810 Apr, [facility] [address] [id number] [place] [address]- 0029 Mar, [facility] [address] [id number] [place] [address]- 9780 Mar, [facility] [address] [id number] [place] [address]- 9127 Mar, [facility] [address] [id number] [place] [address]- 4231 Mar, [facility] [address] [id number] [place] [address]- 7318 14 Mar, 2012 [facility] [address] [id number] [place] [address] 2546 14 Mar, 2012 [facility] [address] [id number] [place] [address]- 1336 10 Mar, 2012 [facility] [address] [id number] [place] [address]- 4077 10 Mar, 2012 [facility] [address] [id number][place] [address]- 7942 Mar, [facility] [address] [id number] [place] [address]- 0769 Mar, [facility] [address] [id number], [place] [address]- 6052 Feb, [facility] [address] [facility] [id number] [place] [address]- 4513 Feb, [facility] [address] [id number], [place] [address]- 4979 Feb, [facility] [address] [id number] [place] [address]- 0560 Feb, [facility] [address] [id number] [place] [address]- 7262 Feb, [facility] [address] [id number] [address]- 3517 Feb, [facility] [address] [id number], [place] [address]- 6625 Feb, [facility] [address] [id number], [place] [address]- 4053 Feb, [facility] [address] [facility] [id number], [place] [address]- 0041 Feb, [facility] [address] [facility] [id number], [place] [address]- 8474 Feb, [facility] [address] [facility] [id number][place] [address]- 4061 Jan, [facility] [address] [id number][place] [address]- 9012 Jan, [facility] [address] [facility] [id number][place] [address]- 5203 Jan, [facility] [facility] [address] [facility] [id number][place] [address]- 6605 Jan, [facility] [place] [facility] [address] [id number] [place] [address]- 2387 28 Sep, 2011 [facility] [place] [facility] [address] [id number] [place] [address]- 6816 25 Sep, 2011 [facility] [place] [facility] [address] [id number] [place] [address] 2546 18 Sep, 2011 [facility] [place] [facility] [address] [id number] [place] [address] 2546 18 Sep, 2011 [facility] [place] [facility] [address] [id number] [place] [address] 2546 17 Sep, 2011 [facility] [place] [facility] [address] [id number] [place] [address]- 6326 14 Sep, 2011 [facility] [place] [facility] [address] [id number] [place] [address]- 0618 13 Dec, 2011 [facility] [place] [facility] [address] [id number] [place] [address]- 1494 13 Dec, 2011 [facility] [place] [facility] [address] [id number] [place] [address]- 9919 06 Dec, 2011 [facility] [place] [facility] [address] [id number] [place] [address]- 1198 31 Nov, 2011 [facility] [place] [facility] [address] [id number] [place] [address]- 7941 30 Nov, 2011 [facility] [place] [facility] [address] [id number] [place] [address]- 3937 Nov, [facility] [place] [facility] [address] [id number] [place] [address] 2540 09 Nov, 2011 [facility] [place] [facility] [address] [id number] [place] [address]- 3766 Sep, [facility] [place] [facility] [address] [id number] [place] [address] 2546 07 Sep, 2011 [facility] [place] [facility] [address] [id number] [place] [address]- 3317 Sep, [facility] [address] [id number] [place] [address]- 9014 August, [facility] [place] [facility] [address] [id number] [place] [address]- 8356 August, [facility] [place] [facility] [address] [id number] [place] [address]- 6959 August, [facility] [place] [facility] [address] [id number] [place] [address]- 6746 August, [facility] [place] [facility] [address] [id number] [place] [address]- 3573 August, [facility] [place] [facility] [address] [id number] [place] [address]- 9701 August, [facility] [place] [facility] [address] [id number] [place] [address]- 4530 August, [facility] [place] [facility] [address] [id number] [place] [address]- 1728 August, [facility] [place] [facility] [address] [id number] [place] [address]- 0978 August, [facility] [place] [facility] [address] [id number] [place] [address]- 2445 Jul, [facility] [place] [facility] [address] [id number] [place] [address]- 2701 Jun, [facility] [place] [facility] [address] [id number] [place] [address]- 2009 Jun, [facility] [place] [facility] [address] [id number] [place] [address]- 6428 Jun, [facility] [place] [facility] [address] [id number] [place] [address]- 8096 Jun, [facility] [place] [facility] [address] [id number] [place] [address]- 5864 Jun, [facility] [place] [facility] [address] [id number] [place] [address]- 0268 04 Jun, 2011 [facility] [place] [facility] [address] [id number] [place] [address]- 2956 Jun, [facility] [place] [facility] [address] [id number] [place] [address]- 0566 Jun, [facility] [place] [facility] [address] [id number] [place] [address]- 9906 27 May, 2011 [facility] [place] [facility] [address] [id number] [place] [address]- 0232 21 May, 2011 [facility] [place] [facility] [address] [id number] [place] [address]- 8238 20 May, 2011 [facility] [place] [facility] [address] [id number] [place] [address]- 9206 19 May, 2011 [facility] [place] [facility] [address] [id number] [place] [address]- 8986 17 May, 2011 [facility] [place] [facility] [address] [id number] [place] [address]- 3317 16 May, 2011 [facility] [place] [facility] [address] [id number] [place] [address]- 1464 14 May, 2011 [facility] [place] [facility] [address] [id number] [place] [address]- 3611 Apr, [facility] [place] [facility] [address] [id number] [place] [address]- 6906 16 Apr, 2011 [facility] [place] [facility] [address] [id number] [place] [address] 2544 13 Apr, 2011 [facility] [place] [facility] [address] [id number] [place] [address]- 6923 11 Apr, 2011 [facility] [place] [facility] [address] [id number] [place] [address]- 2686 10 Apr, 2011 [facility] [place] [facility] [address] [id number] [place] [address]- 0391 Apr, [facility] [place] [facility] [address] [id number] [place] [address] Apr, [facility] [place] [facility] [address] [id number] [place] [address] Apr, [facility] [place] [facility] [address] [id number] [place] [address] Mar, [facility] [place] [facility] [address] [id number] [place] [address] Mar, [facility] [place] [facility] [address] [id number] [place] [address] Feb, [facility] [place] [facility] [address] [id number] [place] [address] Feb, [facility] [place] [facility] [address] [id number] [place] [address] Feb, [facility] [place] [facility] [address] [id number] [place] [address] 16 Feb, 2011 [facility] [place] [facility] [address] [id number] [place] [address] Feb, [facility] [place] [facility] [address] [id number] [place] [address] 24 Jan, 2011 [facility] [place] [facility] [address] [id number] [place] [address] Nov, [facility] [place] [facility] [address] [id number] [address] Sep, [facility] [place] [facility] [address] [id number] [place] [address] August, [facility] [place] [facility] [address] [id number] [place] [address] Jun, [facility] [place] [facility] [address] [id number] [place] [address] 14 May, 2010 [facility] [place] [facility] [address] [facility] [id number] [place] [address] 18 Apr, 2010 [facility] [address] [id number] [place] [address] 22 Mar, 2010 [facility] [address] [facility] [id number] [place] [address] 14 Mar, 2010 [facility] [address] [facility] [id number] [place] [address] 14 Mar, 2010 [facility] [address] [facility] [id number] [place] [address] 12 Feb, 2010 [facility] [address] [facility] [id number] [place] [address] Feb, [facility] [address] [facility] [id number] [place] [address] Jan, [facility] [address] [facility] [id number] [place] [address] Jan, [facility] [address] [facility] [id number] [place] [address] Jan, [facility] [address] [facility] [id number] [place] [address] Oct, [facility] [address] [facility] [id number] [place] [address] Oct, [facility] [address] [facility] [id number] [place] [address] 15 Apr, 2009 [facility] [address] [facility] [id number] [address] Mar, [facility] [address] [facility] [id number] [address] Mar, [facility] [address] [facility] [id number] [address] 23 Jan, 2009 [facility] [address] [facility] [id number] [address] 12 Dec, 2008 IMMUNIZATIONS No Known Immunizations SOCIAL HISTORY Never Assessed REASON FOR VISIT Controlled Med Refill PLAN OF CARE VITAL SIGNS MEDICATIONS Medication Instructions Dosage Frequency Start Date End Date Duration Status Percocet 5-325 MG Orally every 6 hrs prn 1 tablet as needed August, Active RESULTS No Results PROCEDURES No Known [...]
--- OUTSIDE RECORDS SUMMARY | 2018-02-13 03:52 | XMS REPORT ---
Author Author NADIYA CARMONA Organization [facility] Address [address] [place] [address] Care Team Providers Care Sign Hanger Name Role Phone MATHEW NADIYA Unavailable PROBLEMS Type Condition ICD9-CM Code [id number] Code Onset Dates Condition Status SNOMED Code Problem Asthma J45.909 Active 570384074 Problem Reactive depression F32.9 Active 13046489 Problem Secondary hypertension I15.9 Active 03245504 Problem Open bite of left hand, initial encounter S61.452A Active 503155654 Problem Bitten by cat, initial encounter W55.01XA Active 941901844 Problem Moderate persistent asthma with exacerbation J45.41 Active 704029793 Problem Bronchitis J40 Active 46971586 Problem Simple chronic bronchitis J41.0 Active 97395515 Problem Recurrent major depressive disorder, in full remission F33.42 Active 293012099 Problem Renal failure N19 Active 11993362 Problem Joint pain of left hip on movement M25.552 Active 337924537 Problem Hypercholesterolemia E78.00 Active 06859435 Problem Environmental allergies Z91.09 Active 410713364 Problem PVD (peripheral vascular disease) I73.9 Active 605124739 Problem Diabetes mellitus E11.9 Active 61335462 Problem Proteinuria R80.9 Active 28502566 Problem Insomnia G47.00 Active 966469996 Problem Neuropathy G62.9 Active 390898656 Problem GERD (gastroesophageal reflux disease) K21.9 Active 444622536 ALLERGIES No Information ENCOUNTERS Encounter Location Date Diagnosis [facility] [id number] [address] Oct, Dermatitis due to plants, including poison chris, sumac, and oak L25.5 [facility] [id number] [address] Sep, Diabetes mellitus E11.9 and Medication management Z79.899 [facility] [id number] [place] [address]2091- 7049 Sep, [place] [address] [address] August, Neuropathy G62.9 [facility] [address] [address] August, Open bite of left hand, initial encounter S61.452A ; Encounter for immunization Z23 and Bitten by cat, initial encounter W55.01XA [place] [address] [address]- [address] 05 Jul, 2017 Environmental allergies Z91.09 [place] [address] 67057- 7941 Jun, [place] [address] 54780- 5[address] Jun, Simple chronic bronchitis J41.0 ; PVD (peripheral vascular disease) I73.9 and Recurrent major depressive disorder, in full remission F33.42 [facility] [address] [id number] 13 Jun, 2017 Dental examination Z01.20 [facility] [id number] [place] [address] Jun, Moderate persistent asthma with exacerbation J45.41 [place] [address] [address]96- 5776 May, Neuropathy G62.9 and Diabetes mellitus E11.9 [place] [id number] [place] [address] 05512- 6476 Apr, [facility] [address] [address] Apr, Cough R05 [place] [address] 00766- 8491 Feb, [place] [address] 39894- 2371 Feb, [facility] [address] [address]- [address] Feb, Diabetes mellitus E11.9 ; Neuropathy G62.9 ; Joint pain of left hip on movement M25.552 and Encounter for immunization Z23 [facility] [address] 12690- 9435 Feb, [facility] [address] 83638- 1744 Feb, Diabetes mellitus E11.9 [facility] [address] 99478- 8821 Feb, [facility] [address] 28498- 3712 Jan, [facility] [address] 57073- 2816 Jan, Secondary hypertension I15.9 [facility] [address] 83200- 1542 Dec, Diabetes mellitus E11.9 [facility] [address] [id number] Nov, Encounter for dental examination Z01.20 [facility] [id number] [place] [address] 97703 [address]9732 Oct, Allergic contact dermatitis due to plants, except food L23.7 [facility] [address] 20829- 4129 Oct, [facility] [address] 88300- 2886 Oct, Diabetes mellitus E11.9 ; PVD (peripheral vascular disease) I73.9 ; Neuropathy G62.9 ; GERD (gastroesophageal reflux disease) K21.9 ; Insomnia G47.00 ; Environmental allergies Z91.09 ; Secondary hypertension I15.9 ; Reactive depression F32.9 ; Hypercholesterolemia E78.00 and Joint pain of left hip on movement M25.552 [facility] [id number] [place] [address] 81169- 0924 Sep, Diabetes mellitus E11.9 [facility] [id number] [place] [address] 41385- 2585 Sep, Diabetes mellitus E11.9 [facility] [address] 39590- 3664 Sep, Diabetes mellitus E11.9 [facility] [address] 40965- 5200 Sep, Neuropathy G62.9 [place] [address] 63075- 2730 August, [place] [address] 49189- 1039 Jul, [facility] [address] 20105- 7886 Jun, [facility] [address] 12249- 8275 Jun, Diabetes mellitus E11.9 ; PVD (peripheral vascular disease) I73.9 ; Neuropathy G62.9 ; Joint pain of left hip on movement M25.552 ; Renal failure N19 ; Asthma J45.909 ; Reactive depression F32.9 ; Pure hypercholesterolemia, unspecified E78.00 and Insomnia G47.00 [facility] [id number] [place] [address] 20643- 7989 Jun, Joint pain of left hip on movement M25.552 and Diabetes mellitus E11.9 [facility] [address] 23141- 9253 Jun, [facility] [id number] [place] [address] 18057 -3064 May, Cough R05 and Bronchitis J40 [facility] [address] [place] [address]- 2809 May, [facility] [id number] [place] [address] 38144- 3221 May, [facility] [id number] [place] [address] 20103- 0370 May, Asthma J45.909 and Bronchitis J40 [facility] [address] 17849- 1418 May, [facility] [address] 26367- 6866 May, Bronchitis J40 [facility] [address] 59733- 3711 06 May, 2016 [facility] [id number] [place] [address] 42578- 6523 Apr, Diabetes mellitus E11.9 ; PVD (peripheral vascular disease) I73.9 ; GERD (gastroesophageal reflux disease) K21.9 ; Asthma J45.909 ; Insomnia G47.00 ; Environmental allergies Z91.09 ; Secondary hypertension I15.9 ; Joint pain of left hip on movement M25.552 ; Hypercholesterolemia E78.0 and Reactive depression F32.9 [place] [id number] [place] [address] 13432- 1538 Mar, Diabetes mellitus E11.9 ; PVD (peripheral vascular disease) I73.9 and Hypercholesterolemia E78.0 [facility] [id number] [place] [address] 48900- 3108 Mar, Diabetes mellitus E11.9 and Hypercholesterolemia E78.0 [facility] [address] 47862- 1215 Mar, [facility] [id number] [place] [address] 51226- 1116 Feb, [facility] [address] 95531- 8539 Feb, [place] [id number] [place] [address] 20272- 2010 Feb, [place] [address] 45205- 1771 Jan, Encounter for immunization Z23 [place] [address] 50242- 3815 Jan, [place] [address] 98796- 2405 Dec, [place] [id number] [place] [address] 07078- 7573 Dec, Diabetes mellitus E11.9 ; PVD (peripheral vascular disease) I73.9 ; GERD (gastroesophageal reflux disease) K21.9 ; Insomnia G47.00 ; Joint pain of left hip on movement M25.552 ; Asthma J45.909 ; Environmental allergies Z91.09 ; Hypercholesterolemia E78.0 ; Essential hypertension I10 and Neuropathy G62.9 [place] [id number] [place] [address] 84044- 8103 Nov, [place] [address] 39422- 9201 Nov, [place] [id number] [place] [address] 33397- 1046 Oct, PVD (peripheral vascular disease) I73.9 and Diabetes mellitus E11.9 [place] [id number] [place] [address] 20150- 8424 Sep, Diabetes mellitus E11.9 ; PVD (peripheral vascular disease) I73.9 ; Neuropathy G62.9 ; Joint pain of left hip on movement M25.552 ; GERD ( gastroesophageal reflux disease) K21.9 ; Asthma J45.909 ; Insomnia G47.00 ; Secondary hypertension I15.9 and Hypercholesteremia E78.0 [place] [id number] [place] [address] 50949- 5296 August, [facility] [id number] [place] [address] 71770- 9769 August, Neuropathy G62.9 [facility] [id number] [place] [address] 58128- 9363 August, Neuropathy G62.9 [facility] [id number] [place] [address] 91016- 2671 Jun, Diabetes mellitus E11.9 ; Joint pain of left hip on movement M25.552 ; PVD (peripheral vascular disease) I73.9 ; Neuropathy G62.9 ; GERD (gastroesophageal reflux disease) K21.9 ; Asthma J45.909 ; Insomnia G47.00 ; Environmental allergies Z91.09 ; HTN (hypertension) I10 and Hypercholesteremia E78.0 [facility] [id number] [place] [address] 10826- 1770 Jun, [facility] [address] 96190- 5283 Jun, [facility] [id number] [place] [address] 17230- 0795 Jun, [facility] [id number] [place] [address] 60066- 8033 Apr, [facility] [id number] [place] [address] 69773- 3881 Apr, [facility] [id number] [place] [address] 81187- 0389 Apr, Sinusitis J32.9 [facility] [id number] [place] [address] 84150- 9592 Apr, Neuropathy G62.9 [facility] [id number] [place] [address] 96526- 5351 Mar, [facility] [id number] [place] [address] 01118- 7013 Mar, [facility] [address] 82561- 2837 Mar, Diabetes mellitus E11.9 ; PVD (peripheral vascular disease) I73.9 ; Neuropathy G62.9 ; GERD (gastroesophageal reflux disease) K21.9 ; Renal failure N19 ; Asthma J45.909 ; Insomnia G47.00 ; Environmental allergies Z91.09 ; Sinusitis J32.9 ; Cough R05 ; Edema R60.9 ; HTN (hypertension) I10 and Hypercholesterolemia E78.0 [facility] [address] 37002 [address] Mar, Dysuria R30.0 ; Vomiting, unspecified R11.10 ; Benign essential hypertension I10 and Dizziness R42 [facility] [address] 65530- 6222 Mar, [facility] [address] 41802- 9009 Mar, [facility] [address] 89011- 2075 Feb, [facility] [address] 85503- 0828 Feb, [facility] [address] 21385- 7433 Feb, [facility] [address] 99597- 8164 Feb, [facility] [address] 85469- 2976 Feb, Joint pain of left hip on movement M25.552 ; Lumbago M54.5 and UTI (urinary tract infection) N39.0 [facility] [address] 26930- 0165 Feb, [facility] [address] 29919- 3010 Feb, [facility] [address] [place] [address]- 2717 Jan, [facility] [id number] [place] [address] 23985- 3097 Jan, [facility] [id number] [place] [address] 82785- 4122 Jan, [facility] [id number] [place] [address] 64958- 4018 Jan, [facility] [address] 17751- 9870 Jan, 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 [facility] [address] 64196- 8844 30 Dec, 2014 Hypertension 401.9 and Diabetes 250.00 [facility] [id number] [place] [address] 42846- 0188 Dec, Diabetes 250.00 ; Influenza vaccine administered V04.81 ; Unspecified peripheral vascular disease 443.9 ; Issue of repeat prescriptions V68.1 ; Unspecified hereditary and idiopathic peripheral neuropathy 356.9 ; Insomnia, unspecified 780.52 ; Hypercholesteremia 272.0 ; Pain in joint, site unspecified 719.40 ; Dizziness 780.4 and PCV-13 (PREVNAR) DX V03.82 [facility] [id number] [place] [address] 49837- 9164 Dec, [facility] [id number] [place] [address] 54688- 7098 Dec, [facility] [id number] [place] [address] 58605- 0204 Dec, [facility] [id number] [place] [address] 96309- 7935 Dec, [facility] [id number] [place] [address] 59887- 5128 Dec, [facility] [id number] [place] [address] 10796- 5040 Dec, [facility] [id number] [place] [address] 17084- 0656 Nov, [facility] [id number] [place] [address] 97709- 9931 Nov, Environmental allergies V15.09 ; Sacroiliitis, not elsewhere classified 720.2 and Cough 786.2 [place] [address] 62426- 7155 Oct, [facility] [id number] [place] [address] 88854- 2186 Oct, [facility] [id number] [place] [address] 20774- 0557 Oct, [facility] [id number] [place] [address] 33183- 7369 Sep, [facility] [id number] [place] [address] 39833- 0063 Sep, [facility] [id number] [place] [address] 629196- 8808 Sep, Dysuria 788.1 and Diabetes with other specified manifestations, type II or unspecified type, not stated as uncontrolled 250.80 [place] [id number] [place] [address] 90893- 1096 Sep, [facility] [id number] [place] [address] 486655- 2022 Sep, Diabetes with other specified manifestations, type II or unspecified type, not stated as uncontrolled 250.80 [place] [id number] [place] [address] 56106- 2428 Sep, DM w/o complication type II 250.00 ; Unspecified peripheral vascular disease 443.9 ; Pain in joint, pelvic region and thigh 719.45 ; Asthma , unspecified, unspecified status 493.90 ; Hypercholesteremia 272.0 ; Fatigue 780.79 ; UTI (lower urinary tract infection) 599.0 and Essential hypertension 401.9 [facility] [address] [address]- 6293 Sep, [facility] [address] [address]- 7898 Sep, [facility] [address] 6431 Sep, [facility] [id number] [address]- 0925 August, [facility] [address] [address]- 3442 August, [facility] [id number] [place] [address] 23910- 4142 August, Diabetes with other specified manifestations, type II or unspecified type, not stated as uncontrolled 250.80 [facility] [address] [address]- 9778 Jul, Peripheral vascular disease 443.9 [facility] [address] [address]- 7146 Jul, [facility] [address] [address]- 8631 Jul, [facility] [address] [address]- 5429 Jun, [facility] [address] [address]- 0756 Jun, [facility] [address] [address]- 5837 Jun, [facility] [address] [address]- 7186 Jun, [facility] [address] [address]- 4832 Jun, [facility] [address] [address]- 5064 Jun, [facility] [place] [facility] [address] [id number] [place] [address]- 6928 Jun, [facility] [place] [facility] [address] [id number] [place] [address]- 4762 Jun, 2014 [facility] [place] [facility] [address] [facility] [id number] [place] [address]- 7827 Jun, [facility] [place] [facility] [address] [facility] [id number] [place] [address]- 0120 May, 2014 [facility] [place] [facility] [address] [id number] [place] [address]- 5502 May, 2014 [facility] [place] [facility] [address] [facility] [id number] [place] [address]- 3536 24 May, 2014 [facility] [place] [facility] [address] [facility] [id number] [place] [address]- 8380 May, 2014 [facility] [place] [facility] [address] [facility] [id number] [place] [address]- 5597 May, 2014 [facility] [place] [facility] [address] [facility] [id number] [place] [address]- 4795 May, 2014 [facility] [place] [facility] [address] [facility] [id number] [place] [address]- 2997 May, 2014 [facility] [place] [facility] [address] [facility] [id number] [place] [address]- 8175 13 May, 2014 [facility] [place] [facility] [address] [facility] [id number] [place] [address]- 9963 13 May, 2014 [facility] [place] [facility] [address] [facility] [id number] [place] [address]- 4141 May, 2014 [facility] [place] [facility] [address] [facility] [id number] [place] [address]- 4953 12 May, 2014 [facility] [place] [facility] [address] [facility] [id number] [place] [address]- 8571 May, [facility] [place] [facility] [address] [id number] [place] [address]- 8620 May, [facility] [place] [facility] [address] [id number] [place] [address]- 6792 Apr, [facility] [place] [facility] [address] [id number] [place] [address]- 3425 Apr, [facility] [place] [facility] [address] [id number] [place] [address]- 9782 Apr, [facility] [place] [facility] [address] [id number] [place] [address]- 4175 Apr, [facility] [place] [facility] [address] [id number] [place] [address]- 8016 Apr, [facility] [place] [facility] [address] [id number] [place] [address]- 3901 Apr, [facility] [place] [facility] [address] [id number] [place] [address]- 2309 Apr, [facility] [place] [facility] [address] [id number] [place] [address]- 3110 Apr, [facility] [place] [facility] [address] [id number] [place] [address]- 5045 Mar, [facility] [place] [facility] [address] [id number] [place] [address]- 7460 Mar, [facility] [place] [facility] [address] [id number] [place] [address]- 9040 Mar, [facility] [place] [facility] [address] [id number] [place] [address]- 5455 Mar, [facility] [place] [facility] [address] [id number] [place] [address]- 5666 Mar, [facility] [place] [facility] [address] [id number] [place] [address]- 9796 Mar, [facility] [place] [facility] [address] [id number] [place] [address]- 4297 Mar, [facility] [place] [facility] [address] [id number] [place] [address]- 4698 Mar, [facility] [place] [facility] [address] [id number] [place] 5808 Mar, [facility] [place] [facility] [address] [id number] [place] [address]- 6969 Mar, [facility] [place] [facility] [address] [id number] [place] [address]- 6978 Mar, [facility] [place] [facility] [address] [id number] [place] [address]- 8580 Mar, [facility] [place] [facility] [address] [id number] [place] [address]- 1156 Mar, [facility] [place] [facility] [address] [id number] [place] [address]- 9198 Mar, [facility] [place] [facility] [address] [id number] [place] [address]- 9646 Feb, [facility] [place] [facility] [address] [id number] [place] [address]- 3793 Feb, [facility] [place] [facility] [address] [id number] [place] [address]- 0575 Feb, [facility] [place] [facility] [address] [id number] [place] [address]- 8851 Feb, [facility] [place] [facility] [address] [id number] [place] [address] Feb, [facility] [place] [facility] [address] [id number] [place] [address] Feb, [facility] [place] [facility] [address] [id number] [place] [address] Feb, [facility] [place] [facility] [address] [id number] [place] [address] Feb, [facility] [place] [facility] [address] [id number] [place] [address] Feb, [facility] [place] [facility] [address] [id number] [place] [address] Feb, [facility] [place] [facility] [address] [id number] [place] [address] Feb, [facility] [place] [facility] [address] [id number] [place] [address] Feb, [facility] [place] [facility] [address] [id number] [place] [address] Feb, [facility] [place] [facility] [address] [id number] [place] [address] Feb, [facility] [place] [facility] [address] [id number] [place] [address] Feb, [facility] [place] [facility] [address] [id number] [place] [address] Feb, [facility] [place] [facility] [address] [id number] [place] [address] Jan, [facility] [place] [facility] [address] [id number] [place] [address] Jan, [facility] [place] [facility] [address] [id number] [place] [address] Jan, [facility] [place] [facility] [address] [id number] [place] [address] Jan, [facility] [place] [facility] [address] [id number] [place] [address] Jan, [facility] [place] [facility] [address] [id number] [place] [address] Jan, [facility] [place] [facility] [address] [id number] [place] [address] Jan, [facility] [place] [facility] [address] [id number] [place] [address] Jan, [facility] [place] [facility] [address] [id number] [place] [address] Dec, [facility] [place] [facility] [address] [id number] [place] [address] Dec, [facility] [place] [facility] [address] [id number] [place] [address] Nov, [facility] [place] [facility] [address] [id number] [place] [address] Nov, [facility] [place] [facility] [address] [id number] [place] [address] Nov, [facility] [place] [facility] [address] [id number] [place] [address] Nov, [facility] [place] [facility] [address] [id number] [place] [address] 4582 Nov, [facility] [place] [facility] [address] [id number] [place] [address] Nov, [facility] [place] [facility] [address] [id number] [place] [address]80 Oct, [facility] [place] [facility] [address] [id number] [place] [address] 7939 Oct, [facility] [place] [facility] [address] [id number] [place] [address]- 2641 Oct, [facility] [place] [facility] [address] [id number] [place] [address] Oct, [facility] [place] [facility] [address] [id number] [place] [address] 5068 Sep, [facility] [place] [facility] [address] [id number] [place] [address]- 8369 Sep, [facility] [place] [facility] [address] [id number] [place] [address]- 0593 Sep, [facility] [place] [facility] [address] [id number] [place] [address] 7150 Sep, [facility] [place] [facility] [address] [id number] [place] [address]- 9542 Sep, [facility] [place] [facility] [address] [id number] [place] [address]- 3623 Sep, [facility] [place] [facility] [address] [id number] [place] August, [facility] [place] [facility] [address] [id number] [place] [address]- 0447 August, [facility] [place] [facility] [address] [id number] [place] [address]- [address]21 August, [facility] [place] [facility] [address] [id number] [place] [address]- 5457 August, [facility] [address] [id number] [place] [address]- 1788 August, [facility] [place] [facility] [address] [id number] [place] [address]- 3795 August, [facility] [place] [facility] [address] [id number] [place] [address]- 7892 August, [facility] [address] [id number] [place] [address]- 6207 August, [facility] [place] [facility] [address] [id number] [place] [address]- 3523 August, [facility] [place] [facility] [address] [id number] [place] [address]- 8693 August, [facility] [place] [facility] [address] [id number] [place] [address]- 4924 August, [facility] [place] [facility] [address] [id number] [place] [address]- 0747 August, [facility] [place] [facility] [address] [id number] [place] [address]- 5003 Jul, [facility] [place] [facility] [address] [id number] [place] [address]- 1906 Jul, [facility] [place] [facility] [address] [id number] [place] [address]- 4990 Jul, [facility] [place] [facility] [address] [id number] [place] [address]- 0636 Jul, [facility] [place] [facility] [address] [id number] [place] [address]- 7081 Jul, [facility] [place] [facility] [address] [id number] [place] [address]- 3316 Jul, [facility] [place] [facility] [address] [id number] [place] [address]- 5032 Jul, [facility] [place] [facility] [address] [id number] [place] [address]- 5322 Jul, [facility] [place] [facility] [address] [id number] [place] [address]- 6803 Jul, [facility] [place] [facility] [address] [id number] [place] [address]- 7416 Jul, [facility] [place] [facility] [address] [id number] [place] [address]- 4705 Jul, [facility] [place] [facility] [address] [id number] [place] [address]- 6336 Jun, [facility] [place] [facility] [address] [id number] [place] [address]- 6486 31 Jun, 2013 [facility] [place] [facility] [address] [id number] [place] [address]- 5272 Jun, [facility] [place] [facility] [address] [id number] [place] [address]- 0239 Jun, [facility] [place] [facility] [address] [id number] [place] [address]- 9821 Jun, [facility] [place] [facility] [address] [id number] [place] [address]- 6116 Jun, [facility] [place] [facility] [address] [id number] [place] [address]- 7508 Jun, [facility] [place] [facility] [address] [id number] [place] [address]- 1202 Jun, [facility] [place] [facility] [address] [id number] [place] [address]- 2347 Jun, [facility] [place] [facility] [address] [id number] [place] [address]- 9812 May, [facility] [place] [facility] [address] [id number] [place] [address]- 6558 May, [facility] [place] [facility] [address] [id number] [place] [address]- 4457 May, [facility] [place] [facility] [address] [id number] [place] [address]- 9218 Apr, [facility] [place] [facility] [address] [id number] [place] [address]- 3711 Apr, [facility] [place] [facility] [address] [id number] [place] [address]- 3057 Apr, [facility] [place] [facility] [address] [id number] [place] [address]- 4482 Apr, [facility] [place] [facility] [address] [id number] [place] [address]- 9748 Apr, [facility] [place] [facility] [address] [id number] [place] [address]- 6524 Apr, [facility] [place] [facility] [address] [id number] [place] [address]- 3838 Apr, [facility] [place] [facility] [address] [id number] [place] [address]- 2198 Apr, [facility] [place] [facility] [address] [id number] [place] [address]- 9517 Mar, [facility] [place] [facility] [address] [id number] [place] [address]- 5939 Mar, [facility] [place] [facility] [address] [id number] [place] [address]- 5814 Feb, [facility] [place] [facility] [address] [id number] [place] [address]- 0038 Feb, [facility] [place] [facility] [address] [id number] [place] [address]- 3464 Jan, [facility] [place] [facility] [address] [id number] [place] [address]- 9677 Jan, [facility] [place] [facility] [address] [id number] [place] [address] Jan, [facility] [place] [facility] [address] [id number] [place] [address]- 8272 Jan, [facility] [place] [facility] [address] [id number] [place] [address]- 9184 Jan, [facility] [place] [facility] [address] [id number] [place] [address]- 6499 24 Jan, 2013 [facility] [place] [facility] [address] [id number] [place] [address]- 4926 Jan, [facility] [place] [facility] [address] [id number] [place] [address]- 7989 Jan, [facility] [place] [facility] [address] [id number] [place] [address]- 5924 17 Jan, 2013 [facility] [place] [facility] [address] [id number] [place] [address]- 1782 17 Jan, 2013 [facility] [place] [facility] [address] [id number] [place] [address]- 6896 14 Jan, 2013 [facility] [place] [facility] [address] [id number] [place] 14 Jan, 2013 [facility] [place] [facility] [address] [id number] [place] [address]- 8973 Jan, [facility] [place] [facility] [address] [id number] [place] [address]- 0907 10 Jan, 2012 [facility] [place] [facility] [address] [id number] [place] [address]- 0719 Jan, 2012 [facility] [place] [facility] [address] [id number] [place] [address]- 6106 Jan, 2012 [facility] [place] [facility] [address] [id number] [place] [address]- 7648 Jan, [facility] [place] [facility] [address] [id number] [place] [address]- 8928 Jan, [facility] [place] [facility] [address] [id number] [place] [address]- 7957 08 Jan, 2013 [facility] [place] [facility] [address] [id number] [place] [address]- 4857 Jan, [facility] [place] [facility] [address] [id number] [place] [address]- 8460 Jan, [facility] [place] [facility] [address] [id number] [place] [address]- 9402 Jan, [facility] [place] [facility] [address] [id number] [place] [address]- 7513 Jan, [facility] [place] [facility] [address] [id number] [place] [address]- 4872 17 Dec, 2012 [facility] [place] [facility] [address] [id number] [address]- 6072 16 Dec, 2012 [facility] [place] [facility] [address] [id number] [place] [address]- 0575 Nov, [facility] [place] [facility] [address] [id number] [place] [address]- 9851 Oct, [facility] [place] [facility] [address] [id number] [place] [address]- 254 Oct, [facility] [place] [facility] [address] [id number] [place] [address]- 6153 Oct, [facility] [address] [id number] [place] [address]- 0595 Oct, [facility] [place] [facility] [address] [id number] [place] [address]- 5143 Oct, [facility] [address] [id number] [place] [address]- 1659 Oct, [facility] [place] [facility] [address] [id number] [place] [address]- 3740 Sep, [facility] [address] [id number] [place] [address]- 6427 Sep, [facility] [place] [facility] [address] [id number] [place] [address]- 0238 Sep, [facility] [address] [id number] [place] [address]- 6317 Jul, [facility] [address] [id number] [place] [address]- 7261 Jul, [facility] [place] [facility] [address] [id number] [place] [address]- 1216 Jul, [facility] [address] [id number] [place] [address]- 5313 Jun, [facility] [place] [facility] [address] [id number] [place] [address]- 4684 Jun, [facility] [place] [facility] [address] [id number] [place] [address]- 8066 Jun, [facility] [place] [facility] [address] [id number] [place] [address]- 3899 Jun, [facility] [place] [facility] [address] [id number] [place] [address]- 8728 Jun, [facility] [place] [facility] [address] [id number] [place] [address]- 3434 Jun, [facility] [place] [facility] [address] [id number] [place] [address]- 2997 May, [facility] [address] [id number] [place] [address]- 8916 May, [facility] [address] [id number] [place] [address]- 3950 Apr, [facility] [address] [id number] [place] [address]- 7776 Apr, [facility] [address] [id number] [place] [address]- 7607 Apr, [facility] [address] [id number] [place] [address]- 0526 Apr, [facility] [address] [id number] [place] [address]- 7596 Apr, [facility] [address] [id number] [place] [address]- 1596 Mar, [facility] [address] [id number] [place] [address]- 7557 Mar, [facility] [address] [id number] [place] [address]- 5101 Mar, [facility] [address] [id number] [place] [address]- 2068 Mar, [facility] [address] [id number] [place] [address]- 4864 14 Mar, 2012 [facility] [place] [facility] [address] [id number] [place] [address] 2546 14 Mar, 2012 [facility] [place] [facility] [address] [id number] [place] [address]- 9456 10 Mar, 2012 [facility] [place] [facility] [address] [id number] [place] [address]- 1328 10 Mar, 2012 [facility] [place] [facility] [address] [id number] [place] [address]- 6599 Mar, [facility] [place] [facility] [address] [id number] [place] [address]- 5287 Mar, [facility] [place] [facility] [address] [id number] [place] [address]- 6414 Feb, [facility] [place] [facility] [address] [facility] [id number] [place] [address]- 8745 Feb, [facility] [place] [facility] [address] [id number] [place] [address]- 9861 Feb, [facility] [place] [facility] [address] [id number] [place] [address]- 9265 Feb, [facility] [place] [facility] [address] [id number] [place] [address]- 4676 Feb, [facility] [place] [facility] [address] [id number] [place] [address]- 5838 Feb, [facility] [place] [facility] [address] [id number] [place] [address]- 0245 Feb, [facility] [place] [facility] [address] [id number] [place] [address]- 6373 Feb, [facility] [place] [facility] [address] [facility] [id number] [place] [address]- 6751 Feb, [facility] [place] [facility] [address] [facility] [id number] [place] [address]- 5597 Feb, [facility] [place] [facility] [address] [facility] [id number] [place] [address]- 7651 Jan, [facility] [place] [facility] [address] [id number] [place] [address]- 5716 Jan, [facility] [place] [facility] [address] [facility] [id number] [place] [address]- 6700 Jan, [facility] [place] [facility] [address] [facility] [id number] [place] [address]- 1571 Jan, [facility] [place] [facility] [address] [id number] [place] [address]- 5524 28 Sep, 2011 [facility] [place] [facility] [address] [id number] [place] [address]- 5566 25 Sep, 2011 [facility] [place] [facility] [address] [id number] [place] [address] 2546 18 Sep, 2011 [facility] [place] [facility] [address] [id number] [place] [address] 2546 18 Sep, 2011 [facility] [place] [facility] [address] [id number] [place] [address] 2546 17 Sep, 2011 [facility] [place] [facility] [address] [id number] [place] [address]- 9166 14 Sep, 2011 [facility] [place] [facility] [address] [id number] [place] [address]- 8787 13 Dec, 2011 [facility] [place] [facility] [address] [id number] [place] [address]- 6403 13 Dec, 2011 [facility] [place] [facility] [address] [id number] [place] [address]- 8086 06 Dec, 2011 [facility] [place] [facility] [address] [id number] [place] [address]- 4705 31 Nov, 2011 [facility] [place] [facility] [address] [id number] [place] [address]- 7735 30 Nov, 2011 [facility] [place] [facility] [address] [id number] [place] [address]- 9776 Nov, [facility] [place] [facility] [address] [id number] [place] [address] 2541 09 Nov, 2011 [facility] [place] [facility] [address] [id number] [place] [address]- 9546 Sep, [facility] [place] [facility] [address] [id number] [place] [address] 2546 07 Sep, 2011 [facility] [place] [facility] [address] [id number] [place] [address]- 7858 Sep, [facility] [address] [id number] [place] [address]- 4658 August, [facility] [place] [facility] [address] [id number] [place] [address]- 5697 August, [facility] [place] [facility] [address] [id number] [place] [address]- 3688 August, [facility] [place] [facility] [address] [id number] [place] [address]- 3879 August, [facility] [place] [facility] [address] [id number] [place] [address]- 8010 August, [facility] [place] [facility] [address] [id number] [place] [address]- 0367 August, [facility] [place] [facility] [address] [id number] [place] [address]- 1615 August, [facility] [place] [facility] [address] [id number] [place] [address]- 7225 August, [facility] [place] [facility] [address] [id number] [place] [address]- 6165 August, [facility] [place] [facility] [address] [id number] [place] [address]- 0303 Jul, [facility] [place] [facility] [address] [id number] [place] [address]- 5679 Jun, [facility] [place] [facility] [address] [id number] [place] [address]- 6512 Jun, [facility] [place] [facility] [address] [id number] [place] [address]- 2742 Jun, [facility] [place] [facility] [address] [id number] [place] [address]- 0183 Jun, [facility] [place] [facility] [address] [id number] [place] [address]- 3346 Jun, [facility] [place] [facility] [address] [id number] [place] [address]- 5549 04 Jun, 2011 [facility] [place] [facility] [address] [id number] [place] [address]- 1236 Jun, [facility] [place] [facility] [address] [id number] [place] [address]- 1046 Jun, [facility] [place] [facility] [address] [id number] [place] [address]- 0076 27 May, 2011 [facility] [place] [facility] [address] [id number] [place] [address]- 1782 21 May, 2011 [facility] [place] [facility] [address] [id number] [place] [address]- 2930 20 May, 2011 [facility] [place] [facility] [address] [id number] [place] [address]- 2346 19 May, 2011 [facility] [place] [facility] [address] [id number] [place] [address]- 1066 17 May, 2011 [facility] [place] [facility] [address] [id number] [place] [address]- 8736 16 May, 2011 [facility] [place] [facility] [address] [id number] [place] [address]- 9391 14 May, 2011 [facility] [place] [facility] [address] [id number] [place] [address]- 8043 Apr, [facility] [place] [facility] [address] [id number] [place] [address]- 4532 16 Apr, 2011 [facility] [place] [facility] [address] [id number] [place] [address] 2549 13 Apr, 2011 [facility] [place] [facility] [address] [id number] [place] [address]- 1294 11 Apr, 2011 [facility] [place] [facility] [address] [id number] [place] [address]- 3766 10 Apr, 2011 [facility] [place] [facility] [address] [id number] [place] [address]- 0665 Apr, [facility] [place] [facility] [address] [id number] [place] [address]- 1039 Apr, [facility] [place] [facility] [address] [id number] [place] [address]- 9534 Apr, [facility] [place] [facility] [address] [id number] [place] [address]- 3361 Mar, [facility] [place] [facility] [address] [id number] [place] [address]- 5083 Mar, [facility] [place] [facility] [address] [id number] [place] [address]- 0425 Feb, [facility] [place] [facility] [address] [id number] [place] [address]- 0689 Feb, [facility] [place] [facility] [address] [id number] [place] [address]- 8874 Feb, [facility] [place] [facility] [address] [id number] [place] [address]- 0662 16 Feb, 2011 [facility] [place] [facility] [address] [id number] [place] [address]- 7321 Feb, [facility] [place] [facility] [address] [id number] [place] [address]- 1806 24 Jan, 2011 [facility] [place] [facility] [address] [id number] [place] [address]- 5391 Nov, [facility] [place] [facility] [address] [id number] [place] [address]- 5146 Sep, [facility] [place] [facility] [address] [id number] [place] [address]- 2545 August, [facility] [place] [facility] [address] [id number] [place] [address]- 8106 Jun, [facility] [place] [facility] [address] [id number] [place] [address]- 0211 14 May, 2010 [facility] [place] [facility] [address] [facility] [id number] [place] [address] 18 Apr, 2010 [facility] [address] [id number] [place] [address] 22 Mar, 2010 [facility] [address] [facility] [id number] [place] [address] 14 Mar, 2010 [facility] [address] [facility] [id number] [place] [address] 14 Mar, 2010 [facility] [address] [facility] [id number] [place] [address] 12 Feb, 2010 [facility] [address] [facility] [id number] [place] [address] Feb, [facility] [address] [facility] [id number] [place] [address] Jan, [facility] [address] [facility] [id number] [place] [address] Jan, [facility] [address] [facility] [id number] [place] [address] Jan, [facility] [address] [facility] [id number] [place] [address] Oct, [facility] [address] [facility] [id number] [place] [address] Oct, [facility] [address] [facility] [id number] [place] [address] 15 Apr, 2009 [facility] [address] [facility] [id number] [place] [address] Mar, [facility] [address] [facility] [id number] [place] [address] Mar, [facility] [address] [facility] [id number] [place] [address] 23 Jan, 2009 [facility] [address] [facility] [id number] [place] [address] 12 Dec, 2008 IMMUNIZATIONS No Known Immunizations SOCIAL HISTORY Never Assessed REASON FOR VISIT PALS IN-Vytorin PLAN OF CARE VITAL SIGNS MEDICATIONS No Known Medications RESULTS No Results PROCEDURES No Known [...]
[2018-02-13 03:53] LABS: BASOPHILS % (AUTO) 0 % (0-10); EOSINOPHILS % (AUTO) 1 % (0-10); HEMATOCRIT 34 % (35-52); HEMOGLOBIN 11.3 G/DL (11.5-16.0); LYMPHOCYTES # (AUTO) 0.6 X 10^3 (1.0-4.0); LYMPHOCYTES % (AUTO) 10 % (12-44); MEAN CORPUSCULAR HEMOGLOBIN 30 PG (25-34); MEAN CORPUSCULAR HGB CONC 33 G/DL (32-36); MEAN CORPUSCULAR VOLUME 91 FL (80-99); MEAN PLATELET VOLUME 8.1 FL (7.4-10.4); MONOCYTES # (AUTO) 0.6 X 10^3 (0.0-1.0); MONOCYTES % (AUTO) 10 % (0-12); NEUTROPHILS # (AUTO) 4.8 X 10^3 (1.8-7.8); NEUTROPHILS % (AUTO) 80 % (42-75); PLATELET COUNT 215 10^3/uL (130-400); RED BLOOD COUNT 3.73 10^6/uL (4.35-5.85); RED CELL DISTRIBUTION WIDTH 11.9 % (10.0-14.5)
--- OUTSIDE RECORDS SUMMARY | 2018-02-13 03:53 | XMS REPORT ---
Author Author COLBY JAIME [facility] IN [facility] Address [address] [place] [address] Care Team Providers Care Grounds/Maintenance Specialist Name Role Phone COLBY JAIME Unavailable PROBLEMS Type Condition ICD9-CM Code MAU15-WU Code Onset Dates Condition Status SNOMED Code Problem Asthma J45.909 Active 958311118 Problem Reactive depression F32.9 Active 12989636 Problem Secondary hypertension I15.9 Active 56299763 Problem Open bite of left hand, initial encounter S61.452A Active 993884618 Problem Bitten by cat, initial encounter W55.01XA Active 328573673 Problem Moderate persistent asthma with exacerbation J45.41 Active 996822035 Problem Bronchitis J40 Active 77836258 Problem Simple chronic bronchitis J41.0 Active 44248851 Problem Recurrent major depressive disorder, in full remission F33.42 Active 657933078 Problem Renal failure N19 Active 19632058 Problem Joint pain of left hip on movement M25.552 Active 224196573 Problem Hypercholesterolemia E78.00 Active 98825810 Problem Environmental allergies Z91.09 Active 896236960 Problem PVD (peripheral vascular disease) I73.9 Active 349164634 Problem Diabetes mellitus E11.9 Active 37550357 Problem Proteinuria R80.9 Active 81176537 Problem Insomnia G47.00 Active 495222862 Problem Neuropathy G62.9 Active 600582553 Problem GERD (gastroesophageal reflux disease) K21.9 Active 490850966 ALLERGIES Substance Reaction Event Type Date Status Stadol Unknown Drug Allergy August, Active Glucotrol Unknown Drug Allergy August, Active ENCOUNTERS Encounter Location Date Diagnosis [facility] [address] [facility] [id number] [address] Oct, Dermatitis due to plants, including poison chris, sumac, and oak L25.5 [facility] [address] [facility] [id number] [place] [address] 97684- 3820 Sep, Diabetes mellitus E11.9 and Medication management Z79.899 [place] [address] 87279- 6091 05 Sep, 2017 [place] [address] 55152- 8395 August, Neuropathy G62.9 [facility] [address] [address] August, Open bite of left hand, initial encounter S61.452A ; Encounter for immunization Z23 and Bitten by cat, initial encounter W55.01XA [place] [address] 41781- 4361 05 Jul, 2017 Environmental allergies Z91.09 [place] [address] 36396- 1695 15 Jun, 2017 [place] [address] 57887- 9688 14 Jun, 2017 Simple chronic bronchitis J41.0 ; PVD (peripheral vascular disease) I73.9 and Recurrent major depressive disorder, in full remission F33.42 [facility] [address] [id number] Jun, 2017 Dental examination Z01.20 [facility] [address] [place] [id number] [place] [address] 22751 -0778 Jun, Moderate persistent asthma with exacerbation J45.41 [place] [address] 07581- 2644 May, Neuropathy G62.9 and Diabetes mellitus E11.9 [place] [address] 05108- 1282 Apr, [facility] [address] [address] Apr, Cough R05 [place] [address] [place] [address] 42[address] Feb, [facility] [address] 02421- 9965 Feb, [facility] [address] 68413- 8261 Feb, Diabetes mellitus E11.9 ; Neuropathy G62.9 ; Joint pain of left hip on movement M25.552 and Encounter for immunization Z23 [facility] [address] 85973- 9058 Feb, [facility] [address] 20925- 9067 Feb, Diabetes mellitus E11.9 [facility] [address] 54658- 7795 Feb, [facility] [address] 96229- 4488 Jan, [facility] [address] 54268- 7614 Jan, Secondary hypertension I15.9 [facility] [address] 11461- 4309 Dec, Diabetes mellitus E11.9 [facility] [address] [id number] Nov, Encounter for dental examination Z01.20 [facility] [address] [place] [id number] [place] [address] 71658 -1190 Oct, Allergic contact dermatitis due to plants, except food L23.7 [facility] [address] 08349- 8647 Oct, [facility] [address] 07525- 6752 Oct, Diabetes mellitus E11.9 ; PVD (peripheral vascular disease) I73.9 ; Neuropathy G62.9 ; GERD (gastroesophageal reflux disease) K21.9 ; Insomnia G47.00 ; Environmental allergies Z91.09 ; Secondary hypertension I15.9 ; Reactive depression F32.9 ; Hypercholesterolemia E78.00 and Joint pain of left hip on movement M25.552 [facility] [address] [place] [id number] [place] [address] 23939- 1538 Sep, Diabetes mellitus E11.9 [facility] [address] 25190- 7546 Sep, Diabetes mellitus E11.9 [facility] [address] 75277- 3867 Sep, Diabetes mellitus E11.9 [facility] [address] 07373- 1108 Sep, Neuropathy G62.9 [place] [address] 84231- 0046 August, [place] [address] 15813- 1214 Jul, [facility] [address] 46361- 0581 Jun, [facility] [address] 71792- 8457 Jun, Diabetes mellitus E11.9 ; PVD (peripheral vascular disease) I73.9 ; Neuropathy G62.9 ; Joint pain of left hip on movement M25.552 ; Renal failure N19 ; Asthma J45.909 ; Reactive depression F32.9 ; Pure hypercholesterolemia, unspecified E78.00 and Insomnia G47.00 [facility] [address] [place] [id number] [place] [address] 15787- 4961 Jun, Joint pain of left hip on movement M25.552 and Diabetes mellitus E11.9 [facility] [address] [place] [id number] [place] [address] 70208- 5800 Jun, [facility] [address] 61737 -4453 28 May, 2016 Cough R05 and Bronchitis J40 [facility] [address] [place] [id number] [place] [address] 63607- 0173 May, [facility] [address] 94882- 7910 May, [facility] [address] 04338- 8226 May, Asthma J45.909 and Bronchitis J40 [facility] [address] 21762- 4983 May, [facility] [address] 87514- 3427 May, Bronchitis J40 [facility] [address] 01538- 8309 May, [facility] [address] 17837- 7733 Apr, Diabetes mellitus E11.9 ; PVD (peripheral vascular disease) I73.9 ; GERD (gastroesophageal reflux disease) K21.9 ; Asthma J45.909 ; Insomnia G47.00 ; Environmental allergies Z91.09 ; Secondary hypertension I15.9 ; Joint pain of left hip on movement M25.552 ; Hypercholesterolemia E78.0 and Reactive depression F32.9 [place] [address] [place] [id number] [place] [address] 72974- 2318 Mar, Diabetes mellitus E11.9 ; PVD (peripheral vascular disease) I73.9 and Hypercholesterolemia E78.0 [place] [address] 51584- 7542 Mar, Diabetes mellitus E11.9 and Hypercholesterolemia E78.0 [facility] [address] [place] [id number] [place] [address] 48765- 1090 Mar, [facility] [address] 84678- 4272 Feb, [facility] [address] [place] [id number] [place] [address] 20392- 4961 Feb, [facility] [address] [place] [id number] [place] [address] 28970- 8355 Feb, [facility] [address] [place] [id number] [place] [address] 89964- 4339 Jan, Encounter for immunization Z23 [place] [address] 29379- 5240 Jan, [place] [address] 52843- 4118 Dec, [place] [address] [place] [id number] [place] [address] 72817- 2308 Dec, Diabetes mellitus E11.9 ; PVD (peripheral vascular disease) I73.9 ; GERD (gastroesophageal reflux disease) K21.9 ; Insomnia G47.00 ; Joint pain of left hip on movement M25.552 ; Asthma J45.909 ; Environmental allergies Z91.09 ; Hypercholesterolemia E78.0 ; Essential hypertension I10 and Neuropathy G62.9 [place] [address] [place] [id number] [place] [address] 99058- 4649 Nov, [place] [address] [place] [id number] [place] [address] 38107- 8695 Nov, [place] [address] [place] [id number] [place] [address] 14491- 9423 Oct, PVD (peripheral vascular disease) I73.9 and Diabetes mellitus E11.9 [place] [address] [place] [id number] [place] [address] 94538- 1434 Sep, Diabetes mellitus E11.9 ; PVD (peripheral vascular disease) I73.9 ; Neuropathy G62.9 ; Joint pain of left hip on movement M25.552 ; GERD ( gastroesophageal reflux disease) K21.9 ; Asthma J45.909 ; Insomnia G47.00 ; Secondary hypertension I15.9 and Hypercholesteremia E78.0 [facility] [address] [place] [id number] [place] [address] 26122- 4027 August, [facility] [address] [place] [id number] [place] [address] 95705- 7779 August, Neuropathy G62.9 [facility] [address] [place] [id number] [place] [address] 67168- 8594 August, Neuropathy G62.9 [facility] [address] [place] [id number] [place] [address] 13448- 2626 Jun, Diabetes mellitus E11.9 ; Joint pain of left hip on movement M25.552 ; PVD (peripheral vascular disease) I73.9 ; Neuropathy G62.9 ; GERD (gastroesophageal reflux disease) K21.9 ; Asthma J45.909 ; Insomnia G47.00 ; Environmental allergies Z91.09 ; HTN (hypertension) I10 and Hypercholesteremia E78.0 [facility] [address] [place] [id number] [place] [address] 22188- 4915 Jun, [facility] [address] [place] [id number] [place] [address] 72244- 3027 Jun, [facility] [address] [place] [id number] [place] [address] 18995- 7642 Jun, [facility] [address] [place] [id number] [place] [address] 85537- 1251 Apr, [facility] [address] [place] [id number] [place] [address] 42257- 9360 Apr, [facility] [address] [place] [id number] [place] [address] 74814- 6346 Apr, Sinusitis J32.9 [facility] [address] [place] [id number] [place] [address] 47091- 6590 Apr, Neuropathy G62.9 [facility] [address] [place] [id number] [place] [address] 30303- 8762 Mar, [facility] [address] [place] [address]- 8481 Mar, [facility] [address] [place] [id number] [place] [address] 77771- 5182 Mar, Diabetes mellitus E11.9 ; PVD (peripheral vascular disease) I73.9 ; Neuropathy G62.9 ; GERD (gastroesophageal reflux disease) K21.9 ; Renal failure N19 ; Asthma J45.909 ; Insomnia G47.00 ; Environmental allergies Z91.09 ; Sinusitis J32.9 ; Cough R05 ; Edema R60.9 ; HTN (hypertension) I10 and Hypercholesterolemia E78.0 [facility] [address] 46283 -4379 Mar, Dysuria R30.0 ; Vomiting, unspecified R11.10 ; Benign essential hypertension I10 and Dizziness R42 [facility] [address] 71450- 7205 Mar, [facility] [address] 79236- 1504 Mar, [facility] [address] 51614- 5713 Feb, [facility] [address] 71735- 2261 Feb, [facility] [address] [place] [id number] [place] [address] 77684- 0778 Feb, [facility] [address] 69332- 2404 Feb, [facility] [address] [place] [id number] [place] [address] 72385- 7684 Feb, Joint pain of left hip on movement M25.552 ; Lumbago M54.5 and UTI (urinary tract infection) N39.0 [facility] [address] [place] [id number] [place] [address] 91719- 8913 Feb, [facility] [address] [place] [address]- 5631 Feb, [facility] [address] [place] [id number] [place] [address] 68516- 5402 Jan, [facility] [address] [place] [id number] [place] [address] 22745- 9269 Jan, [facility] [address] [place] [id number] [place] [address] 73149- 0010 Jan, [facility] [address] 26793- 6231 Jan, [facility] [address] [place] [id number] [place] [address] 18977- 0810 Jan, 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 [facility] [address] [place] [id number] [place] [address] 59834- 1737 30 Dec, 2014 Hypertension 401.9 and Diabetes 250.00 [facility] [address] [place] [id number] [place] [address] 88240- 9431 Dec, Diabetes 250.00 ; Influenza vaccine administered V04.81 ; Unspecified peripheral vascular disease 443.9 ; Issue of repeat prescriptions V68.1 ; Unspecified hereditary and idiopathic peripheral neuropathy 356.9 ; Insomnia, unspecified 780.52 ; Hypercholesteremia 272.0 ; Pain in joint, site unspecified 719.40 ; Dizziness 780.4 and PCV-13 (PREVNAR) DX V03.82 [facility] [address] [place] [id number] [place] [address] 67530- 4762 Dec, [facility] [address] [place] [id number] [place] [address] 68858- 9141 Dec, [facility] [address] [place] [id number] [place] [address] 37078- 8771 Dec, [facility] [address] [place] [id number] [place] [address] 49293- 4912 Dec, [facility] [address] [place] [id number] [place] [address] 91489- 6968 Dec, [facility] [address] [address]- 0390 Dec, [facility] [address] [place] [id number] [place] [address] 99160- 0338 Nov, [facility] [address] [place] [id number] [place] [address] 872672- 9453 Nov, Environmental allergies V15.09 ; Sacroiliitis, not elsewhere classified 720.2 and Cough 786.2 [facility] [address] [place] [address] 74078- 2222 Oct, [facility] [address] [place] [id number] [place] [address] 48566- 4582 Oct, [facility] [address] [place] [id number] [place] [address] 832487- 4932 Oct, [facility] [address] [place] [id number] [place] [address] 74247- 5598 Sep, [facility] [address] [place] [id number] [place] [address] 69848- 1909 Sep, [facility] [address] [place] [id number] [place] [address] 72530- 1666 Sep, Dysuria 788.1 and Diabetes with other specified manifestations, type II or unspecified type, not stated as uncontrolled 250.80 [facility] [address] [address]- 1291 Sep, [facility] [address] [place] [address] 09172- 9055 Sep, Diabetes with other specified manifestations, type II or unspecified type, not stated as uncontrolled 250.80 [facility] [address] [address]- 7276 Sep, DM w/o complication type II 250.00 ; Unspecified peripheral vascular disease 443.9 ; Pain in joint, pelvic region and thigh 719.45 ; Asthma , unspecified, unspecified status 493.90 ; Hypercholesteremia 272.0 ; Fatigue 780.79 ; UTI (lower urinary tract infection) 599.0 and Essential hypertension 401.9 [facility] [address] [address]- 7777 Sep, [facility] [address] [address]- 6623 Sep, [facility] [address] [place] [id number] [place] [address] 75054- 1713 Sep, [facility] [address] [place] [address] 13135- 6020 August, [facility] [address] [place] [id number] [place] [address] 85471- 5171 August, [facility] [address] [place] [id number] [place] [address] 41399- 3187 August, Diabetes with other specified manifestations, type II or unspecified type, not stated as uncontrolled 250.80 [facility] [address] [address]- 9950 Jul, Peripheral vascular disease 443.9 [facility] [address] [place] [id number] [place] [address] 17051- 2966 Jul, [facility] [address] [address]- 2155 Jul, [facility] [address] [address]- 7586 Jun, [facility] [address] [address]- 4302 Jun, [facility] [address] [id number] [address]- 7260 Jun, [facility] [address] [address]- 1935 Jun, [facility] [address], [place] [address]- 6764 Jun, [facility] [place] [facility] [address] [id number] [place] [address]- 1208 Jun, [facility] [place] [facility] [address] [id number] [place] [address]- 3461 Jun, [facility] [place] [facility] [address] [facility] [id number] [place] [address]- 7342 Jun, [facility] [place] [facility] [address] [facility] [id number] [place] [address]- 5269 Jun, [facility] [place] [facility] [address] [id number] [place] [address]- 3526 May, 2014 [facility] [place] [facility] [address] [facility] [id number] [place] [address]- 2021 May, 2014 [facility] [place] [facility] [address] [facility] [id number] [place] [address]- 4294 24 May, 2014 [facility] [place] [facility] [address] [facility] [id number] [place] [address]- 7253 May, 2014 [facility] [place] [facility] [address] [facility] [id number] [place] [address]- 2734 18 May, 2014 [facility] [place] [facility] [address] [facility] [id number] [place] [address]- 1192 May, 2014 [facility] [place] [facility] [address] [facility] [id number] [place] [address]- 7647 17 May, 2014 [facility] [place] [facility] [address] [facility] [id number] [place] [address]- 5042 13 May, 2014 [facility] [place] [facility] [address] [facility] [id number] [place] [address]- 0308 13 May, 2014 [facility] [place] [facility] [address] [facility] [id number] [place] [address]- 1502 12 May, 2014 [facility] [place] [facility] [address] [facility] [id number] [place] [address]- 9002 12 May, 2014 [facility] [place] [facility] [address] [id number] [place] [address]- 2831 May, [facility] [place] [facility] [address] [id number] [place] [address]- 9766 May, [facility] [place] [facility] [address] [id number] [place] [address]- 1654 Apr, [facility] [place] [facility] [address] [id number] [place] [address]- 6307 Apr, [facility] [place] [facility] [address] [id number] [place] [address]- 7933 Apr, [facility] [place] [facility] [address] [id number] [place] [address]- 1615 Apr, [facility] [place] [facility] [address] [id number] [place] [address]- 1059 Apr, [facility] [place] [facility] [address] [id number] [place] [address]- 2031 Apr, [facility] [place] [facility] [address] [id number] [place] [address]- 1190 Apr, [facility] [place] [facility] [address] [id number] [place] [address]- 0066 Apr, [facility] [place] [facility] [address] [id number] [place] [address]- 5670 Mar, [facility] [place] [facility] [address] [id number] [place] [address]- 2506 Mar, [facility] [place] [facility] [address] [id number] [place] [address]- 5718 Mar, [facility] [place] [facility] [address] [id number] [place] [address]- 2668 Mar, [facility] [place] [facility] [address] [id number] [place] [address]- 1623 17 Mar, 2014 [facility] [place] [facility] [address] [id number] [place] [address]- 8121 Mar, [facility] [place] [facility] [address] [id number] [place] [address]- 0535 Mar, [facility] [place] [facility] [address] [id number] [place] 2724 Mar, [facility] [place] [facility] [address] [id number] [place] [address]- 1514 Mar, [facility] [place] [facility] [address] [id number] [place] [address]- 0275 Mar, [facility] [place] [facility] [address] [id number] [place] [address]- 6374 Mar, [facility] [place] [facility] [address] [id number] [place] [address]- 8544 Mar, [facility] [place] [facility] [address] [id number] [place] [address]- 0488 Mar, [facility] [place] [facility] [address] [id number] [place] [address]- 5321 Mar, [facility] [place] [facility] [address] [id number] [place] [address]- 4827 Feb, [facility] [place] [facility] [address] [id number] [place] [address]- [address] Feb, [facility] [place] [facility] [address] [id number] [place] [address] Feb, [facility] [place] [facility] [address] [id number] [place] [address] Feb, [facility] [place] [facility] [address] [id number] [place] [address] Feb, [facility] [place] [facility] [address] [id number] [place] [address] Feb, [facility] [place] [facility] [address] [id number] [place] [address] Feb, [facility] [place] [facility] [address] [id number] [place] [address] Feb, [facility] [place] [facility] [address] [id number] [place] [address] Feb, [facility] [place] [facility] [address] [id number] [place] [address] Feb, [facility] [place] [facility] [address] [id number] [place] [address] Feb, [facility] [place] [facility] [address] [id number] [place] [address] Feb, [facility] [place] [facility] [address] [id number] [place] [address] Feb, [facility] [place] [facility] [address] [id number] [place] [address] Feb, [facility] [place] [facility] [address] [id number] [place] [address] Feb, [facility] [place] [facility] [address] [id number] [place] [address] Feb, [facility] [place] [facility] [address] [id number] [place] [address] Jan, [facility] [place] [facility] [address] [id number] [place] [address] 2014 Jan, [facility] [place] [facility] [address] [id number] [place] [address] Jan, [facility] [place] [facility] [address] [id number] [place] [address] Jan, [facility] [place] [facility] [address] [id number] [place] [address] Jan, [facility] [place] [facility] [address] [id number] [place] [address]- [address] Jan, [facility] [place] [facility] [address] [id number] [place] [address] Jan, [facility] [place] [facility] [address] [id number] [place] [address] Jan, [facility] [place] [facility] [address] [id number] [place] [address] Dec, [facility] [place] [facility] [address] [id number] [place] [address] Dec, [facility] [place] [facility] [address] [id number] [place] [address] Nov, [facility] [place] [facility] [address] [id number] [place] [address] Nov, [facility] [place] [facility] [address] [id number] [place] [address] Nov, [facility] [place] [facility] [address] [id number] [place] [address] Nov, [facility] [place] [facility] [address] [id number] [place] [address] Nov, [facility] [place] [facility] [address] [id number] [place] [address] Nov, [facility] [place] [facility] [address] [id number] [place] [address] Oct, [facility] [place] [facility] [address] [id number] [place] [address] Oct, [facility] [place] [facility] [address] [id number] [address] Oct, [facility] [place] [facility] [address] [id number] [place] [address] Oct, [facility] [place] [facility] [address] [id number] [place] [address] Sep, [facility] [place] [facility] [address] [id number] [place] [address] Sep, [facility] [place] [facility] [address] [id number] [place] [address] 3854 Sep, [facility] [place] [facility] [address] [id number] [place] [address] Sep, [facility] [place] [facility] [address] [id number] [place] [address] 1494 Sep, [facility] [place] [facility] [address] [id number] [place] [address]- 1333 Sep, [facility] [place] [facility] [address] [id number] [place] [address] 30[address] August, [facility] [place] [facility] [address] [id number] [place] [address] 7759 August, [facility] [place] [facility] [address] [id number] [place] [address] 2876 August, [facility] [place] [facility] [address] [id number] [place] [address] 4872 August, [facility] [place] [facility] [address] [id number] [place] [address]- 5424 August, [facility] [place] [facility] [address] [id number] [place] [address] 6[address] August, [facility] [place] [facility] [address] [id number] [place] [address]- 0464 August, [facility] [place] [facility] [address] [id number] [place] [address] 7142 August, [facility] [place] [facility] [address] [id number] [place] [address]- 7832 August, [facility] [place] [facility] [address] [id number] [place] [address] 9260 August, [facility] [place] [facility] [address] [id number] [place] [address] 8473 August, [facility] [place] [facility] [address] [id number] [place] [address]- 4543 August, [facility] [place] [facility] [address] [id number] [place] [address]- 0030 Jul, [facility] [place] [facility] [address] [id number] [place] [address]- 5335 Jul, [facility] [place] [facility] [address] [id number] [place] [address]- 4557 Jul, [facility] [place] [facility] [address] [id number] [place] [address]- 9940 Jul, [facility] [place] [facility] [address] [id number] [place] [address]- 1491 Jul, [facility] [place] [facility] [address] [id number] [place] [address]- 1148 Jul, [facility] [place] [facility] [address] [id number] [place] [address]- 2726 Jul, [facility] [place] [facility] [address] [id number] [place] [address]- 8216 Jul, [facility] [place] [facility] [address] [id number] [place] [address]- 7694 Jul, [facility] [place] [facility] [address] [id number] [place] [address]- 1130 Jul, [facility] [place] [facility] [address] [id number] [place] [address]- 0072 Jul, [facility] [place] [facility] [address] [id number] [place] [address]- 2090 Jun, [facility] [place] [facility] [address] [id number] [place] [address]- 9824 Jun, [facility] [place] [facility] [address] [id number] [place] [address]- 3675 Jun, [facility] [place] [facility] [address] [id number] [place] [address]- 2948 Jun, [facility] [place] [facility] [address] [id number] [place] [address] 1979 Jun, [facility] [place] [facility] [address] [id number] [place] [address]- 8296 Jun, [facility] [place] [facility] [address] [id number] [place] [address]- 8219 Jun, [facility] [place] [facility] [address] [id number] [place] [address]- 6196 Jun, [facility] [place] [facility] [address] [id number] [place] [address]- 3877 Jun, [facility] [place] [facility] [address] [id number] [place] [address]- 0804 May, [facility] [place] [facility] [address] [id number] [place] [address]- 9796 May, [facility] [place] [facility] [address] [id number] [place] [address]- 4223 May, [facility] [place] [facility] [address] [id number] [place] [address]- 8004 Apr, [facility] [place] [facility] [address] [id number] [place] [address]- 3814 Apr, [facility] [place] [facility] [address] [id number] [place] [address]- 7521 Apr, [facility] [place] [facility] [address] [id number] [place] [address]- 2455 Apr, [facility] [place] [facility] [address] [id number] [place] [address]- 8353 Apr, [facility] [place] [facility] [address] [id number] [place] [address]- 9287 Apr, [facility] [place] [facility] [address] [id number] [place] [address]- 6676 Apr, [facility] [place] [facility] [address] [id number] [place] [address]- 6052 Apr, [facility] [place] [facility] [address] [id number] [place] [address]- 4683 05 Mar, 2013 [facility] [place] [facility] [address] [id number] [place] [address]- 2666 05 Mar, 2013 [facility] [place] [facility] [address] [id number] [place] [address]- 1378 Feb, [facility] [place] [facility] [address] [id number] [place] [address]- 1527 Feb, [facility] [place] [facility] [address] [id number] [place] [address] Jan, [facility] [place] [facility] [address] [id number] [place] [address] Jan, [facility] [place] [facility] [address] [id number] [place] [address]- 7966 Jan, [facility] [place] [facility] [address] [id number] [place] [address]- 0962 Jan, [facility] [place] [facility] [address] [id number] [place] [address]- 2537 24 Jan, 2013 [facility] [place] [facility] [address] [id number] [place] [address]- 9202 24 Jan, 2013 [facility] [place] [facility] [address] [id number] [place] [address]- 0677 Jan, [facility] [place] [facility] [address] [id number] [place] [address]- 2736 21 Jan, 2013 [facility] [place] [facility] [address] [id number] [place] [address]- 2998 17 Jan, 2013 [facility] [place] [facility] [address] [id number] [place] [address]- 8163 17 Jan, 2013 [facility] [place] [facility] [address] [id number] [place] [address]142 14 Jan, 2013 [facility] [place] [facility] [address] [id number] [place] [address] 4809 14 Jan, 2013 [facility] [place] [facility] [address] [id number] [place] [address]- 8704 10 Jan, 2012 [facility] [place] [facility] [address] [id number] [place] [address]- 1726 10 Jan, 2012 [facility] [place] [facility] [address] [id number] [place] [address]- 4782 10 Jan, 2012 [facility] [place] [facility] [address] [id number] [place] [address]- 3889 10 Jan, 2012 [facility] [place] [facility] [address] [id number] [place] [address]- 0865 09 Jan, 2013 [facility] [place] [facility] [address] [id number] [place] [address]- 0761 Jan, [facility] [place] [facility] [address] [id number] [place] [address]- 6542 08 Jan, 2013 [facility] [place] [facility] [address] [id number], [place] [address]- 7392 07 Jan, 2013 [facility] [place] [facility] [address] [id number] [place] [address]- 2668 Jan, [facility] [place] [facility] [address] [id number], [place] [address]- 8813 04 Jan, 2013 [facility] [place] [facility] [address] [id number], [place] [address]- 4667 04 Jan, 2013 [facility] [place] [facility] [address] [id number], [place] [address]- 1932 17 Dec, 2012 [facility] [place] [facility] [address] [id number], [place] [address]- 1232 16 Dec, 2012 [facility] [place] [facility] [address] [id number], [place] [address]- 8962 Nov, [facility] [place] [facility] [address] [id number], [place] [address]- 6340 Oct, [facility] [place] [facility] [address] [id number] [place] [address]- 4793 Oct, [facility] [address] [id number] [place] [address]- 1336 Oct, [facility] [place] [facility] [address] [id number] [place] [address]- 3636 Oct, [facility] [address] [id number] [place] [address]- 4013 Oct, [facility] [place] [facility] [address] [id number] [place] [address]- 1008 Oct, [facility] [address] [id number] [place] [address]- 6406 Sep, [facility] [place] [facility] [address] [id number] [place] [address]- 3402 Sep, [facility] [address] [id number] [place] [address]- 6990 Sep, [facility] [address] [id number] [place] [address]- 1627 Jul, [facility] [place] [facility] [address] [id number] [place] [address]- 0713 Jul, [facility] [address] [id number] [place] [address]- 5535 Jul, [facility] [place] [facility] [address] [id number] [place] [address]- 5178 Jun, [facility] [place] [facility] [address] [id number] [place] [address]- 0771 Jun, [facility] [place] [facility] [address] [id number] [place] [address]- 7093 Jun, [facility] [place] [facility] [address] [id number] [place] [address]- 5315 Jun, [facility] [place] [facility] [address] [id number] [place] [address]- 1597 Jun, [facility] [place] [facility] [address] [id number] [place] [address]- 6125 Jun, [facility] [address] [id number] [place] [address]- 3526 May, [facility] [address] [id number] [place] [address]- 9166 May, [facility] [address] [id number] [place] [address]- 3253 Apr, [facility] [address] [id number] [place] [address]- 0537 Apr, [facility] [address] [id number] [place] [address]- 9247 Apr, [facility] [address] [id number] [place] [address]- 9832 Apr, [facility] [address] [id number] [place] [address]- 9079 Apr, [facility] [address] [id number] [place] [address]- 8400 Mar, [facility] [address] [id number] [place] [address]- 6016 Mar, [facility] [address] [id number] [place] [address]- 6977 Mar, [facility] [address] [id number] [place] [address]- 2369 27 Mar, 2012 [facility] [place] [facility] [address] [id number] [place] [address]- 1334 14 Mar, 2012 [facility] [place] [facility] [address] [id number] [place] [address]796 14 Mar, 2012 [facility] [place] [facility] [address] [id number] [place] [address]- 9961 10 Mar, 2012 [facility] [place] [facility] [address] [id number], [place] [address]- 7332 Mar, [facility] [place] [facility] [address] [id number] [place] [address]- 1155 Mar, [facility] [place] [facility] [address] [id number], [place] [address]- 0797 Mar, [facility] [place] [facility] [address] [facility] [id number] [place] [address]- 8188 Feb, [facility] [place] [facility] [address] [id number], [place] [address]- 5178 Feb, [facility] [place] [facility] [address] [id number] [place] [address]- 1025 Feb, [facility] [place] [facility] [address] [id number] [place] [address]- 2700 Feb, [facility] [place] [facility] [address] [id number], [place] [address]- 3405 Feb, [facility] [place] [facility] [address] [facility] [id number] [place] [address]- 7838 Feb, [facility] [place] [facility] [address] [facility] [id number], [place] [address]- 4106 Feb, [facility] [place] [facility] [address] [facility] [id number], [place] [address]- 2657 Feb, [facility] [place] [facility] [address] [facility] [id number], [place] [address]- 7699 Feb, [facility] [place] [facility] [address] [facility] [id number], [place] [address]- 9696 Feb, [facility] [place] [facility] [address] [id number], [place] [address]- 0903 Jan, [facility] [place] [facility] [address] [facility] [id number], [place] [address]- 9515 Jan, [facility] [place] [facility] [address] [facility] [id number], [place] [address]- 5968 Jan, [facility] [place] [facility] [address] [id number] [place] [address]- 0499 01 Jan, 2012 [facility] [place] [facility] [address] [id number] [place] [address]- 3524 28 Sep, 2011 [facility] [place] [facility] [address] [id number] [place] [address]- 2546 25 Dec, 2011 [facility] [place] [facility] [address] [id number] [place] [address] 2546 18 Sep, 2011 [facility] [place] [facility] [address] [id number] [place] [address] 254 18 Sep, 2011 [facility] [place] [facility] [address] [id number] [place] [address]- 9416 17 Dec, 2011 [facility] [place] [facility] [address] [id number] [place] [address]- 2205 14 Dec, 2011 [facility] [place] [facility] [address] [id number] [place] [address]- 1008 13 Dec, 2011 [facility] [place] [facility] [address] [id number] [place] [address]- 9936 13 Dec, 2011 [facility] [place] [facility] [address] [id number] [place] [address]- 2556 06 Dec, 2011 [facility] [place] [facility] [address] [id number] [place] [address]- 8782 31 Nov, 2011 [facility] [place] [facility] [address] [id number] [place] [address]- 8461 30 Nov, 2011 [facility] [place] [facility] [address] [id number] [place] [address]- 2549 Nov, [facility] [place] [facility] [address] [id number] [place] [address]- 0105 09 Nov, 2011 [facility] [place] [facility] [address] [id number] [place] [address]- 5916 Sep, [facility] [place] [facility] [address] [id number] [place] [address]- 5911 Sep, [facility] [address] [id number] [place] [address]- 6901 Sep, [facility] [place] [facility] [address] [id number] [place] [address]- 6125 August, [facility] [place] [facility] [address] [id number] [place] [address]- 0082 August, [facility] [place] [facility] [address] [id number] [place] [address]- 0357 August, [facility] [place] [facility] [address] [id number] [place] [address]- 6351 August, [facility] [place] [facility] [address] [id number] [place] [address]- 4054 August, [facility] [place] [facility] [address] [id number] [place] [address]- 1232 August, [facility] [place] [facility] [address] [id number] [place] [address]- 6389 August, [facility] [place] [facility] [address] [id number] [place] [address]- 8200 August, [facility] [place] [facility] [address] [id number] [place] [address]- 4799 August, [facility] [place] [facility] [address] [id number] [place] [address]- 6229 Jul, [facility] [place] [facility] [address] [id number] [place] [address]- 8473 Jun, [facility] [place] [facility] [address] [id number] [place] [address]- 2923 16 Jun, 2011 [facility] [place] [facility] [address] [id number] [place] [address]- 3088 08 Jun, 2011 [facility] [place] [facility] [address] [id number] [place] [address]- 0763 06 Jun, 2011 [facility] [place] [facility] [address] [id number] [place] [address]- 4749 05 Jun, 2011 [facility] [address] [id number] [place] [address]- 8366 04 Jun, 2011 [facility] [place] [facility] [address] [id number] [place] [address]- 0066 Jun, [facility] [place] [facility] [address] [id number] [place] [address]- 4896 Jun, [facility] [place] [facility] [address] [id number] [place] [address]- 4120 27 May, 2011 [facility] [place] [facility] [address] [id number] [place] [address]- 9225 21 May, 2011 [facility] [place] [facility] [address] [id number] [place] [address]- 5780 20 May, 2011 [facility] [place] [facility] [address] [id number] [place] [address]- 5224 19 May, 2011 [facility] [place] [facility] [address] [id number] [place] [address]- 0439 17 May, 2011 [facility] [place] [facility] [address] [id number] [place] [address]- 8709 16 May, 2011 [facility] [place] [facility] [address] [id number] [place] [address]- 4870 14 May, 2011 [facility] [place] [facility] [address] [id number] [place] [address]- 8302 19 Apr, 2011 [facility] [place] [facility] [address] [id number] [place] [address] 2542 16 Apr, 2011 [facility] [place] [facility] [address] [id number] [place] [address]- 3229 13 Apr, 2011 [facility] [place] [facility] [address] [id number] [place] [address]- 7696 11 Apr, 2011 [facility] [place] [facility] [address] [id number] [place] [address]- 3252 Apr, [facility] [place] [facility] [address] [id number] [place] [address]- 3436 Apr, [facility] [place] [facility] [address] [id number] [place] [address]- 0588 Apr, [facility] [place] [facility] [address] [id number] [place] 2391 Apr, [facility] [place] [facility] [address] [id number] [place] [address]- 0785 Mar, [facility] [place] [facility] [address] [id number] [place] [address]- 7056 Mar, [facility] [place] [facility] [address] [id number] [place] [address]- 4087 Feb, [facility] [place] [facility] [address] [id number] [place] [address]- 5057 Feb, [facility] [place] [facility] [address] [id number] [place] [address]- 5920 Feb, [facility] [place] [facility] [address] [id number] [place] [address]- 1325 Feb, [facility] [place] [facility] [address] [id number] [place] [address]- 3774 Feb, [facility] [place] [facility] [address] [id number] [place] [address]- 3315 Jan, [facility] [place] [facility] [address] [id number] [place] [address]- 1379 Nov, [facility] [place] [facility] [address] [id number] [place] [address]- 4634 Sep, [facility] [place] [facility] [address] [id number] [place] [address]- 9926 August, [facility] [place] [facility] [address] [id number] [place] [address]- 7230 Jun, [facility] [place] [facility] [address] [id number] [place] [address]- 3414 14 May, 2010 [facility] [address] [id number] [place] [address]- 2856 18 Apr, 2010 [facility] [place] [facility] [address] [id number] [place] [address]- 5277 22 Mar, 2010 [facility] [place] [facility] [address] [id number] [place] [address]- 1436 14 Mar, 2010 [facility] [place] [facility] [address] [id number] [place] [address]- 00[address] 14 Mar, 2010 [facility] [place] [facility] [address] [id number] [place] [address] 12 Feb, 2010 [facility] [place] [facility] [address] [id number] [place] [address] Feb, [facility] [address] [id number] [place] [address] 12 Jan, 2010 [facility] [place] [facility] [address] [id number] [place] [address] Jan, [facility] [place] [facility] [address] [id number] [place] [address] Jan, [facility] [place] [facility] [address] [id number] [place] [address] Oct, [facility] [place] [facility] [address] [id number] [place] [address] 12 Oct, 2009 [facility] [place] [facility] [address] [id number], [place] [address] 15 Apr, 2009 [facility] [place] [facility] [address] [id number] [place] [address] Mar, [facility] [place] [facility] [address] [id number] [place] [address] Mar, [facility] [place] [facility] [address] [id number] [place] [address] Jan, [facility] [place] [facility] [address] [facility] [id number] [place] [address] Dec, IMMUNIZATIONS Vaccine Route Administration Date Status TDAP (BOOSTRIX) IM Intramuscular August 25, 2017 Administered SOCIAL HISTORY Never Assessed REASON FOR VISIT cat bite left hand JStrasserRN PLAN OF CARE Activity Details Follow Up 2 - 3 Days, prn Reason:if symptoms worsen VITAL SIGNS Height 63 in 2017-08-25 Weight 134.2 lbs 2017-08-25 Temperature 98.2 degrees Fahrenheit 2017-08-25 Heart Rate 68 bpm 2017-08-25 Respiratory Rate 20 2017-08-25 BMI 23.77 kg/m2 2017-08-25 Blood pressure systolic 130 mmHg 2017-08-25 Blood pressure diastolic 82 mmHg 2017-08-25 MEDICATIONS Medication Instructions Dosage Frequency Start Date End Date Duration Status Augmentin 875-125 MG Orally every 12 hrs 1 tablet 12h August,August 10 day(s) Active Amitriptyline HCl 150 MG Orally Once a day 1 tablet 24h Feb, Active Diclofenac Sodium 50MG DR Orally Three times a day 1 tablet 8h Active Vytorin 10-40 MG Orally Once a day 1 tablet 24h Active Levemir Flexpen 100 UNIT/ML Subcutaneous 2 times a day Inject 25 units in AM and PM 12h Active Albuterol Sulfate 90 mcg/actuation 2 puffs by Inhalation route every 4-6 hours as neededPRNcough or wheezing August, Active Gabapentin 300MG Orally 3 times a day 1 capsule by Oral route 3 times per day 8h Active Promethazine-Codeine 6.25-10 MG/5ML Orally prior to bed 5 ml as needed Jun, 10 days Active Hydrochlorothiazide 50MG 1 tablet 24h 30 Active Symbicort 160-4.5 MCG/ACT Inhalation Twice a day 2 puffs 12h Jun, Active Celexa 20 mg Orally Once a day 1 tablet 24h Active Mucinex 600 MG Orally every 12 hrs 1 tablet as needed 12h May, Active Metformin HCl 1000 MG Orally Twice a day 1 tablet with meals 12h Feb, 30 day(s) Active Atenolol 100MG 1 tablet 24h 30 Active Flonase 50 MCG/ACT Nasally Once a day 1 spray in each nostril 24h Feb, Active Percocet 5-325 MG Orally every 6 hrs prn 1 tablet as needed May, Active Pen [place] 32G X 4 MM subcutaneously 2 times a day use to Inject insulin 12h 25 Feb, 2015 90 days Active ProAir HFA 108 (90 Base) MCG/ACT Inhalation every 4 hrs 2 puffs as needed for cough, wheeze or SOB 4h 07 May, 2016 30 days Active RESULTS No Results PROCEDURES Procedure Date Ordered Result Body Site TDAP (BOOSTRIX) August 25, 2017 SINGLE IMMUNIZATION ADMIN August 25, 2017 [facility] VISIT ESTABLISHED PATIENT August 25, 2017 INSTRUCTIONS MEDICATIONS ADMINISTERED No Known Medications [...]
--- NOTE | 2018-02-13 03:54 | ED General ---
General Stated Complaint: UNRESPONSIVE Source of Information: Patient, EMS, Family Exam Limitations: No Limitations History of Present Illness Date Seen by Provider: Feb 13, 2018 Time Seen by Provider: 03:40 Initial Comments Patient presents to ER by EMS with a chief complaint that her family had her home and found her at 3:30 sleep in her chair snoring loudly and that she was unable to awaken. They called ambulance and EMS said that she was difficult to arouse and had pinpoint pupils. They did not want to use the Narcan however because she had just gotten home from the hospital 2 days ago from her neck surgery and still had her neck c-collar in place. She did start to come around now. Her initial blood sugar is 129 and she does have a history of diabetes. By the time they got her in the truck to come out to the ER her blood sugar was 90 so they gave her half an amp of D50. In the ER it was 160. In the ER she is easily arousable by verbal and answers person place and situation. Her family remarks that her last pain medicines were the oxycodone and baclofen at 5:00 PM yesterday. She's taken baclofen in the past but not recently until today. She's been using the Percocet routinely 4 months secondary to her neck pain. She had plan to take another dose of pain medicine around 11:00 last night but the pills were still sitting on the pill cutter so the family does not believe that she asked he took them. The patient states that she has been coughing nonproductive but that's gotten better in the last several days and before. She' s not having any pain right now. She has no nausea vomiting or pain chest pain shortness of breath. She was put on 2 L nasal cannula by EMS because her oxygen sats were in the upper 80s low 90s. She is still 90% on room air so we left her on 2 L. The patient's daughter says that she's had a chronic cough that they think was secondary to nerve compression however after the surgery that cleared up and in the last day and evening she started having some more chest congestion and coughing fits productive of frothy white sputum. There were told to expect some foamy sputum after the surgery. She is using her incentive spirometer while awake 10-15 times an hour. Allergies and Home Medications Allergies Coded Allergies: Penicillins (Unverified Allergy, Unknown, PATIENT HAS TAKEN AMOXICILLIN/ CEFTIN WITHOUT PROBLEMS, 08/06/13) glipizide (Unverified Allergy, Unknown, DOESN'T REMEMBER REACTION, 08/02/13 ) Oxycodone (Unverified Adverse Reaction, Mild, HALLUCINATIONS, 08/06/13) acetaminophen (Unverified Adverse Reaction, Mild, HALLUCINATIONS, 08/06/13) butorphanol (Unverified Adverse Reaction, Mild, HALLUCINATIONS, 08/06/13) Home Medications Amitriptyline Hcl 50 Mg Tablet, 150 MG PO HS, (Reported) TAKES 3 (50MG) TABS Amlodipine Besylate 5 Mg Tablet, 5 MG PO BID, (Reported) Ascorbic Acid 1,000 Mg Tab.chew, 1,000 MG PO SUPPER, (Reported) Aspirin 81 Mg Tablet.dr, 81 MG PO DAILY, (Reported) Atenolol 100 Mg Tablet, 100 MG PO HS, (Reported) Calcium Carbonate/Vitamin D3 1 Each Tablet, 1 TAB PO BID, (Reported) Carvedilol 25 Mg Tablet, 25 MG PO BID, (Reported) Cephalexin Monohydrate 500 Mg Capsule, 1 EACH PO TID Prescribed by: TALISHA GARDNER on 08/06/13 1445 Desoximetasone 60 Gm Oint...g., 2 GM TP DAILY PRN for PSORIASIS, (Reported) APPLY PRN FOR PSORIASIS Ezetimibe/Simvastatin 1 Each Tablet, 1 TAB PO HS, (Reported) Fluticasone Propionate 16 Gm [place], 1 SPRAYS NSEACH DAILY PRN for NASAL CONGESTION, (Reported) PRN NASAL CONGESTION Gabapentin 300 Mg Tablet, 300 MG PO DAILY, (Reported) Gabapentin 300 Mg Tablet, 600 MG PO HS, (Reported) TAKES 2 (300MG) TABS AT HS Hydrochlorothiazide 50 Mg Tablet, 50 MG PO DAILY, (Reported) Hydrocodone Bit/Acetaminophen 1 Each Tablet, 1 TAB PO BID, (Reported) Insulin Detemir 100 Unit/1 Ml Insuln.pen, 14 UNIT SQ DAILY, (Reported) Insulin Determir 100 Unit/1 Ml Insuln.pen, 20 UNIT SQ SUPPER , (Reported) Lutein/Zeaxanthin 1 Each Capsule, 1 CAP PO DAILY, (Reported) Meloxicam 7.5 Mg Tablet, 7.5 MG PO BID, (Reported) Metformin Hcl 1,000 Mg Tablet, 1,000 MG PO BID WITH MEALS, (Reported) Mu-Vits-Min Th/Lycopene/Lutein 1 Each Tablet, 1 TAB PO DAILY, (Reported) Curtis-3 Fatty Acids/Fish Oil 1 Each Capsule, 1,000 MG PO QID, (Reported) Polyethylene Glycol 119 Gm Btl, 0 PO DAILY PRN for CONSTIPATION, (Reported) PRN CONSTIPATION Rabeprazole Sodium 20 Mg Tablet.dr, 20 MG PO DAILY, (Reported) Ubidecarenone/Vit E Acetate 1 Each Capsule, 100 MG PO DAILY, (Reported) Vitamin B Complex 1 Cap Capsule, 1 CAP PO DAILY, (Reported) Vitamin E Mixed 400 Unit Tablet, 400 UNIT PO SUPPER, (Reported) [Garlic] , 1,000 MG PO DAILY, (Reported) [Hydrocodone Bit/Acetaminophen] 1 TAB TAB, 1-2 TAB PO Q4HR PRN for PAIN Prescribed by: TALISHA GARDNER on 08/06/13 1445 [Mexthotrexate] , 2.5 MG PO BID PRN for PSORIASIS, (Reported) PRN PSORIASIS OUTBREAK Patient Home Medication List Home Medication List Reviewed: Yes Review of Systems Review of Systems Constitutional: No chills, No diaphoresis EENTM: No ear discharge, No ear pain Respiratory: No cough, No short of breath Cardiovascular: No chest pain, No palpitations Gastrointestinal: No abdominal pain, No nausea, No vomiting Genitourinary: No discharge, No dysuria Musculoskeletal: No back pain, No joint pain; neck pain (controlled) Past Ifqrlkd-Krzxio-Wsqfky Hx Patient Social History Alcohol Use: Denies Use Recreational Drug Use: No Smoking Status: Never a Smoker Recent Foreign Travel: No Contact w/Someone Who Travel: No Immunizations Up To Date Date of Pneumonia Vaccine: Feb 06, 2012 Seasonal Allergies Seasonal Allergies: Yes Past Medical History Adenoidectomy, Hysterectomy, Oophorectomy, Orthopedic, Tonsillectomy High Cholesterol, Hypertension Headaches /Migraines, Neuropathy [employer] History: Hysterectomy Bladder Infection Chronic Constipation Arthritis Diabetes, Insulin dep Anxiety Physical Exam Vital Signs Vital Signs - First Documented 02/13/18 03:40 Temp 96.8 Pulse 66 Resp 17 B/P (MAP) 125/75 (92) Pulse Ox 96 O2 Delivery Nasal Cannula O2 Flow Rate 2.00 Capillary Refill : Height, Weight, BMI Height: 5'3" Weight: 130lbs. oz. 58.803389wh; BMI Method:Stated General Appearance: No Apparent Distress, WD/WN Eyes: Bilateral Eye Normal Inspection, Bilateral Eye PERRL, Bilateral Eye EOMI , Bilateral Eye Other (bilateral pupils 3 mm) HEENT: PERRL/EOMI, TMs Normal, Normal ENT Inspection, Pharynx Normal, Moist Mucous Membranes Neck: Non Tender, Other (surgical dressings in place and c-collar in place) Respiratory: Chest Non Tender, Lungs Clear, Normal Breath Sounds, No Accessory Muscle Use, No Respiratory Distress, Other (SPO2 91% on room air. 97% on 2 L nasal cannula) Cardiovascular: Regular Rate, Rhythm, No Edema Gastrointestinal: Normal Bowel Sounds, Non Tender, Soft Extremity: Normal Capillary Refill, Normal Inspection, Non Tender, No Calf Tenderness, No Pedal Edema Neurologic/Psychiatric: Oriented x3, Other (somnolent. GCS 14 points) Skin: Normal Color, Warm/Dry Progress/Results/Core Measures Suspected Sepsis SIRS Temperature: Pulse: Respiratory Rate: Laboratory Tests 02/13/18 03:44: White Blood Count 6.0 Blood Pressure / Mean: Laboratory Tests 02/13/18 03:44: Creatinine 0.71, Platelet Count 215, Total Bilirubin 0.6 Results/Orders Lab Results Laboratory Tests Test 02/13/18 03:44 02/13/18 03:48 02/13/18 04:00 Range/Units White Blood Count 6.0 4.3-11.0 10^3/uL Red Blood Count 3.73 L 4.35-5.85 10^6/uL Hemoglobin 11.3 L 11.5-16.0 G/DL Hematocrit 34 L 35-52 % Mean Corpuscular Volume 91 80-99 FL Mean Corpuscular Hemoglobin 30 25-34 PG Mean Corpuscular Hemoglobin Concent 33 32-36 G/DL Red Cell Distribution Width 11.9 10.0-14.5 % Platelet Count 215 130-400 10^3/uL Mean Platelet Volume 8.1 7.4-10.4 FL Neutrophils (%) (Auto) 80 H 42-75 % Lymphocytes (%) (Auto) 10 L 12-44 % Monocytes (%) (Auto) 10 0-12 % Eosinophils (%) (Auto) 1 0-10 % Basophils (%) (Auto) 0 0-10 % Neutrophils # (Auto) 4.8 1.8-7.8 X 10^3 Lymphocytes # (Auto) 0.6 L 1.0-4.0 X 10^3 Monocytes # (Auto) 0.6 0.0-1.0 X 10^3 Eosinophils # (Auto) 0.0 0.0-0.3 10^3/uL Basophils # (Auto) 0.0 0.0-0.1 10^3/uL Sodium Level 133 L 135-145 MMOL/L Potassium Level 3.0 L 3.6-5.0 MMOL/L Chloride Level 93 L 98-107 MMOL/L Carbon Dioxide Level 28 21-32 MMOL/L Anion Gap 12 5-14 MMOL/L Blood Urea Nitrogen 9 7-18 MG/DL Creatinine 0.71 0.60-1.30 MG/DL Estimat Glomerular Filtration Rate > 60 BUN/Creatinine Ratio 13 Glucose Level 171 H 70-105 MG/DL Calcium Level 9.7 8.5-10.1 MG/DL Corrected Calcium 9.8 8.5-10.1 MG/DL Total Bilirubin 0.6 0.1-1.0 MG/DL Aspartate Amino Transf (AST/SGOT) 14 5-34 U/L Alanine Aminotransferase (ALT/SGPT) 19 0-55 U/L Alkaline Phosphatase 54 40-136 U/L C-Reactive Protein High Sensitivity 12.00 H 0.00-0.50 MG/DL Total Protein 5.5 L 6.4-8.2 GM/DL Albumin 3.9 3.2-4.5 GM/DL Acetaminophen Level < 10 L 10-30 UG/ML Serum Alcohol < 10 <10 MG/DL Glucometer 160 H 70-110 MG/DL Urine Color ARTUR H Urine Clarity CLEAR Urine pH 7 5-9 Urine Specific [place] 1.010 L 1.016-1.022 Urine Protein 1+ H NEGATIVE Urine Glucose (UA) 2+ H NEGATIVE Urine Ketones NEGATIVE NEGATIVE Urine Nitrite NEGATIVE NEGATIVE Urine Bilirubin NEGATIVE NEGATIVE Urine Urobilinogen NORMAL NORMAL MG/DL Urine Leukocyte Esterase NEGATIVE NEGATIVE Urine RBC (Auto) NEGATIVE NEGATIVE Urine RBC NONE /HPF Urine WBC NONE /HPF Urine Squamous Epithelial Cells RARE /HPF Urine Crystals NONE /LPF Urine Bacteria TRACE /HPF Urine Casts PRESENT /LPF Urine Hyaline Casts RARE /LPF Urine Mucus MODERATE H /LPF Urine Culture Indicated NO Urine Opiates Screen NEGATIVE NEGATIVE Urine Oxycodone Screen POSITIVE H NEGATIVE Urine Methadone Screen NEGATIVE NEGATIVE Urine Propoxyphene Screen NEGATIVE NEGATIVE Urine Barbiturates Screen NEGATIVE NEGATIVE Ur Tricyclic Antidepressants Screen POSITIVE H NEGATIVE Urine Phencyclidine Screen NEGATIVE NEGATIVE Urine Amphetamines Screen NEGATIVE NEGATIVE Urine Methamphetamines Screen NEGATIVE NEGATIVE Urine Benzodiazepines Screen NEGATIVE NEGATIVE Urine Cocaine Screen NEGATIVE NEGATIVE Urine Cannabinoids Screen NEGATIVE NEGATIVE My Orders Orders - JC ALDANA Acetaminophen (02/13/18 03:44) Alcohol (02/13/18 03:44) Cbc With Automated Diff (02/13/18 03:44) Comprehensive Metabolic Panel (02/13/18 03:44) Hs C Reactive Protein (02/13/18 03:44) Drug Screen Stat (Urine) (02/13/18 03:44) Ua Culture If Indicated (02/13/18 03:44) Saline Lock/Iv-Start (02/13/18 03:44) Lactated Ringers (Lr 1000 Ml Iv Solution (02/13/18 03:44) Accucheck Stat ONCE (02/13/18 03:44) Chest 1 View, Ap/Pa Only (02/13/18 03:44) Ceftriaxone For Iv Use (Rocephin For I (02/13/18 04:45) Azithromycin Tablet (Zithromax Tablet) (02/13/18 04:45) Oxycodone/Apap 5/325mg Tablet (Percocet (02/13/18 05:15) Medications Given in ED Current Medications Medications Dose Ordered Sig/Elian Route Start Time Stop Time Status Last Admin Dose Admin Azithromycin 500 mg ONCE ONCE PO 02/13/18 04:45 02/13/18 04:47 DC 02/13/18 04:56 500 MG Lactated Ringer's 1,000 ml @ 0 mls/hr Q0M ONCE IV 02/13/18 03:44 02/13/18 03:48 DC 02/13/18 03:55 999 MLS/HR Vital Signs/I&O 02/13/18 03:40 Temp 96.8 Pulse 66 Resp 17 B/P (MAP) 125/75 (92) Pulse Ox 96 O2 Delivery Nasal Cannula O2 Flow Rate 2.00 Capillary Refill : Progress Note #1: Time: 03:56 Progress Note First glance it seems like she's overdosed unintentionally on her opioids. We will check some labs look at the liver kidney function and urinalysis as well as get a chest x-ray. Progress Note #2: Time: 04:35 Progress Note We discussed the nebulous findings and the difficulty to tell whether it's atelectasis versus pneumonia on the chest x-ray with the patient. She does not want to stay in the hospital she is alert, oriented and has already gotten up to go to the commode and back. She would prefer to stay at home but her oxygen sats down to 84% on room air with a good waveform. We have discussed with her staying in the hospital and she is agreed to do this. Diagnostic Imaging Diagonstic Imaging: Xray Plain Films/CT/US/NM/MRI: chest (1v) Comments Faint right lower lobe infiltrate versus atelectasis Reviewed: Reviewed by Me Departure Communication (Admissions) Time/Spoke to Admitting Phy: 05:05 Brent discussed case lab imaging findings and she would like Dr. Blackwell's consultation. Time/Spoke to Consulting Phy: 05:[address] Blackwell and he will see the patient. Impression Primary Impression: Overdose of medication Qualified Codes: T50.901A - Poisoning by unspecified drugs, medicaments and biological substances, accidental (unintentional), initial encounter Additional Impressions: Atelectasis Pneumonia Qualified Codes: J18.1 - Lobar pneumonia, unspecified organism History of neck surgery Hypoxia Hypokalemia Disposition: ADMITTED INPATIENT Condition: Stable Admissions Decision to Admit Reason: Admit from ER (General) Decision to Admit/Date: Feb 13, 2018 Time/Decision to Admit Time: 05:10 Departure-Patient Inst. Referrals: VASQUEZ PAZ MD (PCP) Primary Care Physician NICHELLE VALENZUELA (Family) Primary Care Physician Copy Copies To 1: DANIELA BEAR TITUS J Feb 13, 2018 03:54
--- OUTSIDE RECORDS SUMMARY | 2018-02-13 03:54 | XMS REPORT ---
Author Author NADIYA CARMONA Organization [facility] Address [address] [place] [address] Care Team Providers Care Processing Archivist Name Role Phone MATHEW NADIYA Unavailable PROBLEMS Type Condition ICD9-CM Code PZQ23-XV Code Onset Dates Condition Status SNOMED Code Problem Asthma J45.909 Active 237123859 Problem Reactive depression F32.9 Active 47429645 Problem Secondary hypertension I15.9 Active 65529629 Problem Open bite of left hand, initial encounter S61.452A Active 897685027 Problem Bitten by cat, initial encounter W55.01XA Active 809353428 Problem Moderate persistent asthma with exacerbation J45.41 Active 886319603 Problem Bronchitis J40 Active 89544382 Problem Simple chronic bronchitis J41.0 Active 86775021 Problem Recurrent major depressive disorder, in full remission F33.42 Active 306948167 Problem Renal failure N19 Active 50019949 Problem Joint pain of left hip on movement M25.552 Active 570256672 Problem Hypercholesterolemia E78.00 Active 42867487 Problem Environmental allergies Z91.09 Active 411202084 Problem PVD (peripheral vascular disease) I73.9 Active 428479822 Problem Diabetes mellitus E11.9 Active 55160847 Problem Proteinuria R80.9 Active 83940688 Problem Insomnia G47.00 Active 414296297 Problem Neuropathy G62.9 Active 016675392 Problem GERD (gastroesophageal reflux disease) K21.9 Active 668380682 ALLERGIES No Information ENCOUNTERS Encounter Location Date Diagnosis [facility] [id number], [place] [address] Oct, Dermatitis due to plants, including poison chris, sumac, and oak L25.5 [facility] [id number], [place] [address] Sep, Diabetes mellitus E11.9 and Medication management Z79.899 [facility] [id number] [place] [address] 37639- 5297 Sep, [address] [address]- [address] August, Neuropathy G62.9 [facility] [address] [address] August, Open bite of left hand, initial encounter S61.452A ; Encounter for immunization Z23 and Bitten by cat, initial encounter W55.01XA [address] [address] [address] 05 Jul, 2017 Environmental allergies Z91.09 [place] [address] 58051- 4436 Jun, [place] [address] 90887- 0538 Jun, Simple chronic bronchitis J41.0 ; PVD (peripheral vascular disease) I73.9 and Recurrent major depressive disorder, in full remission F33.42 [facility] [address] [id number] Jun, 2017 Dental examination Z01.20 [facility] [id number] [place] [address] Jun, Moderate persistent asthma with exacerbation J45.41 [place] [address] 10174- 1487 May, Neuropathy G62.9 and Diabetes mellitus E11.9 [place] [id number] [place] [address] 94187- 0358 Apr, [facility] [address] [address] Apr, Cough R05 [address] [address] 50869- 6087 Feb, [place] [address] 30429- 2993 Feb, [facility] [address] 93923- 9312 Feb, Diabetes mellitus E11.9 ; Neuropathy G62.9 ; Joint pain of left hip on movement M25.552 and Encounter for immunization Z23 [facility] [address] 28005- 7915 Feb, [facility] [address] 41056- 3222 Feb, Diabetes mellitus E11.9 [facility] [address] [address]- 1983 Feb, [facility] [address] 40181- 2041 Jan, [facility] [address] 67550- 5488 Jan, Secondary hypertension I15.9 [facility] [address] 7[address]34- 2359 Dec, Diabetes mellitus E11.9 [facility] [address] [id number] Nov, Encounter for dental examination Z01.20 [facility] [id number] [place] [address] Oct, Allergic contact dermatitis due to plants, except food L23.7 [facility] [address] 34808- 5193 Oct, [facility] [address] 10193- 2217 Oct, Diabetes mellitus E11.9 ; PVD (peripheral vascular disease) I73.9 ; Neuropathy G62.9 ; GERD (gastroesophageal reflux disease) K21.9 ; Insomnia G47.00 ; Environmental allergies Z91.09 ; Secondary hypertension I15.9 ; Reactive depression F32.9 ; Hypercholesterolemia E78.00 and Joint pain of left hip on movement M25.552 [facility] [id number] [place] [address] 27038- 8699 Sep, Diabetes mellitus E11.9 [facility] [id number] [place] [address] 73497- 1518 Sep, Diabetes mellitus E11.9 [facility] [address] 44679- 9499 Sep, Diabetes mellitus E11.9 [facility] [address] 04084- 7437 Sep, Neuropathy G62.9 [place] [address] 34966- 3285 August, [address] [address] 06074- 1910 Jul, [facility] [address] 94853- 4176 Jun, [facility] [address] 77363- 5178 Jun, Diabetes mellitus E11.9 ; PVD (peripheral vascular disease) I73.9 ; Neuropathy G62.9 ; Joint pain of left hip on movement M25.552 ; Renal failure N19 ; Asthma J45.909 ; Reactive depression F32.9 ; Pure hypercholesterolemia, unspecified E78.00 and Insomnia G47.00 [facility] [id number] [place] [address] 53455- 4569 Jun, Joint pain of left hip on movement M25.552 and Diabetes mellitus E11.9 [facility] [address] 43365- 9247 Jun, [facility] [id number] [place] [address] 30053 -3097 May, Cough R05 and Bronchitis J40 [facility] [address] [place] [address] 27[address] May, [facility] [id number] [place] [address] 58086- 0738 May, [facility] [id number] [place] [address] 43129- 8364 May, Asthma J45.909 and Bronchitis J40 [facility] [address] 61739- 6143 May, [facility] [address] 01141- 8966 May, Bronchitis J40 [facility] [address] 75253- 9448 06 May, 2016 [facility] [id number] [place] [address] 95751- 5981 Apr, Diabetes mellitus E11.9 ; PVD (peripheral vascular disease) I73.9 ; GERD (gastroesophageal reflux disease) K21.9 ; Asthma J45.909 ; Insomnia G47.00 ; Environmental allergies Z91.09 ; Secondary hypertension I15.9 ; Joint pain of left hip on movement M25.552 ; Hypercholesterolemia E78.0 and Reactive depression F32.9 [address] [place] [id number] [place] [address] 12569- 1100 Mar, Diabetes mellitus E11.9 ; PVD (peripheral vascular disease) I73.9 and Hypercholesterolemia E78.0 [facility] [id number] [place] [address] 42277- 9367 Mar, Diabetes mellitus E11.9 and Hypercholesterolemia E78.0 [facility] [address] 83070- 2681 Mar, [facility] [id number] [place] [address] 43180- 0472 Feb, [facility] [address] 39310- 3550 Feb, [address] [id number] [place] [address] 91090- 3278 Feb, [place] [address] 91166- 0937 Jan, Encounter for immunization Z23 [place] [address] 77751- 8923 Jan, [place] [address] 24580- 9826 Dec, [place] [id number] [place] [address] 79742- 6016 Dec, Diabetes mellitus E11.9 ; PVD (peripheral vascular disease) I73.9 ; GERD (gastroesophageal reflux disease) K21.9 ; Insomnia G47.00 ; Joint pain of left hip on movement M25.552 ; Asthma J45.909 ; Environmental allergies Z91.09 ; Hypercholesterolemia E78.0 ; Essential hypertension I10 and Neuropathy G62.9 [place] [id number] [place] [address] 71191- 1930 Nov, [place] [address] 29001- 0728 Nov, [place] [id number] [place] [address] 09970- 2131 Oct, PVD (peripheral vascular disease) I73.9 and Diabetes mellitus E11.9 [address] [id number] [place] [address] 09908- 4271 Sep, Diabetes mellitus E11.9 ; PVD (peripheral vascular disease) I73.9 ; Neuropathy G62.9 ; Joint pain of left hip on movement M25.552 ; GERD ( gastroesophageal reflux disease) K21.9 ; Asthma J45.909 ; Insomnia G47.00 ; Secondary hypertension I15.9 and Hypercholesteremia E78.0 [address] [id number] [place] [address] 91493- 1451 August, [facility] [id number] [place] [address] 09977- 8463 August, Neuropathy G62.9 [facility] [id number] [place] [address] 20929- 8855 August, Neuropathy G62.9 [facility] [id number] [place] [address] 25577- 0942 Jun, Diabetes mellitus E11.9 ; Joint pain of left hip on movement M25.552 ; PVD (peripheral vascular disease) I73.9 ; Neuropathy G62.9 ; GERD (gastroesophageal reflux disease) K21.9 ; Asthma J45.909 ; Insomnia G47.00 ; Environmental allergies Z91.09 ; HTN (hypertension) I10 and Hypercholesteremia E78.0 [facility] [id number] [place] [address] 04320- 9111 Jun, [facility] [address] 61428- 8569 Jun, [facility] [id number] [place] [address] 05589- 4074 Jun, [facility] [id number] [place] [address] 56865- 2398 Apr, [facility] [id number] [place] [address] 96124- 3677 Apr, [facility] [id number] [place] [address] 34029- 5391 Apr, Sinusitis J32.9 [facility] [id number] [place] [address] 44631- 7503 Apr, Neuropathy G62.9 [facility] [id number] [place] [address] 00193- 5965 Mar, [facility] [id number] [place] [address] 87004- 9595 Mar, [facility] [address] 47605- 2370 Mar, Diabetes mellitus E11.9 ; PVD (peripheral vascular disease) I73.9 ; Neuropathy G62.9 ; GERD (gastroesophageal reflux disease) K21.9 ; Renal failure N19 ; Asthma J45.909 ; Insomnia G47.00 ; Environmental allergies Z91.09 ; Sinusitis J32.9 ; Cough R05 ; Edema R60.9 ; HTN (hypertension) I10 and Hypercholesterolemia E78.0 [facility] [address] 68834 -1717 Mar, Dysuria R30.0 ; Vomiting, unspecified R11.10 ; Benign essential hypertension I10 and Dizziness R42 [facility] [address] 23057- 1748 Mar, [facility] [address] 09696- 6483 Mar, [facility] [address] 68052- 3655 Feb, [facility] [address] 72677- 0195 Feb, [facility] [address] 29526- 8621 Feb, [facility] [address] 01340- 3538 Feb, [facility] [address] 83581- 2099 Feb, Joint pain of left hip on movement M25.552 ; Lumbago M54.5 and UTI (urinary tract infection) N39.0 [facility] [address] 89839- 1480 Feb, [facility] [address] 55113- 4067 Feb, [facility] [address] [place] [address]- 4028 Jan, [facility] [id number] [place] [address] 46937- 6731 Jan, [facility] [id number] [place] [address] 38161- 9878 Jan, [facility] [id number] [place] [address] 06533- 9208 Jan, [facility] [address] 40480- 8480 Jan, 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 [facility] [address] 61624- 9251 30 Dec, 2014 Hypertension 401.9 and Diabetes 250.00 [facility] [id number] [place] [address] 90491- 8466 Dec, Diabetes 250.00 ; Influenza vaccine administered V04.81 ; Unspecified peripheral vascular disease 443.9 ; Issue of repeat prescriptions V68.1 ; Unspecified hereditary and idiopathic peripheral neuropathy 356.9 ; Insomnia, unspecified 780.52 ; Hypercholesteremia 272.0 ; Pain in joint, site unspecified 719.40 ; Dizziness 780.4 and PCV-13 (PREVNAR) DX V03.82 [facility] [id number] [place] [address] 28334- 3545 Dec, [facility] [id number] [place] [address] 60213- 5197 Dec, [facility] [id number] [place] [address] 17246- 8859 Dec, [facility] [id number] [place] [address] 04631- 9603 Dec, [facility] [id number] [place] [address] 30422- 4176 Dec, [facility] [id number] [place] [address] 43708- 8302 Dec, [facility] [address] [place] [address] 90086- 3919 Nov, [facility] [id number] [place] [address] 05034- 9135 Nov, Environmental allergies V15.09 ; Sacroiliitis, not elsewhere classified 720.2 and Cough 786.2 [address] 58977- 8534 Oct, [facility] [id number] [place] [address] 05503- 9150 Oct, [facility] [id number] [place] [address] 04195- 7341 Oct, [facility] [id number] [place] [address] 86047- 4525 Sep, [facility] [id number] [place] [address] 53143- 1906 Sep, [facility] [id number] [place] [address] 188968- 5628 Sep, Dysuria 788.1 and Diabetes with other specified manifestations, type II or unspecified type, not stated as uncontrolled 250.80 [address] [id number] [place] [address] 96210- 7857 Sep, [facility] [id number] [place] [address] 164258- 4760 Sep, Diabetes with other specified manifestations, type II or unspecified type, not stated as uncontrolled 250.80 [address] [place] [id number] [place] [address] 08703- 7317 Sep, DM w/o complication type II 250.00 ; Unspecified peripheral vascular disease 443.9 ; Pain in joint, pelvic region and thigh 719.45 ; Asthma , unspecified, unspecified status 493.90 ; Hypercholesteremia 272.0 ; Fatigue 780.79 ; UTI (lower urinary tract infection) 599.0 and Essential hypertension 401.9 [facility] [address] [address]- 6686 Sep, [facility] [address], [place] [address]- 7037 Sep, [facility] [address] 1631 Sep, [facility] [id number], [place] [address]- 1210 August, [facility] [address], [place] [address]- 0366 August, [facility] [id number] [place] [address] 33642- 6065 August, Diabetes with other specified manifestations, type II or unspecified type, not stated as uncontrolled 250.80 [facility] [address], [place] [address]- 1205 Jul, Peripheral vascular disease 443.9 [facility] [address], [place] [address]- 4059 Jul, [facility] [address], [place] [address]- 3711 Jul, [facility] [address], [place] [address]- 2933 Jun, [facility] [address], [place] [address]- 3389 Jun, [facility] [address], [place] [address]- 0060 Jun, [facility] [address], [place] [address]- 6544 Jun, [facility] [address], [place] [address]- 9304 Jun, [facility] [address], [place] [address]- 3945 Jun, [facility] [place] [facility] [address] [id number] [place] [address]- 2979 Jun, [facility] [place] [facility] [address] [id number] [place] [address]- 4793 Jun, 2014 [facility] [place] [facility] [address] [facility] [id number] [place] [address]- 2548 Jun, [facility] [place] [facility] [address] [facility] [id number] [place] [address]- 7333 May, 2014 [facility] [place] [facility] [address] [id number] [place] [address]- 0208 May, 2014 [facility] [place] [facility] [address] [facility] [id number] [place] [address]- 5139 24 May, 2014 [facility] [place] [facility] [address] [facility] [id number] [place] [address]- 0901 May, 2014 [facility] [place] [facility] [address] [facility] [id number] [place] [address]- 2613 May, 2014 [facility] [place] [facility] [address] [facility] [id number] [place] [address]- 7211 May, 2014 [facility] [place] [facility] [address] [facility] [id number] [place] [address]- 0426 May, 2014 [facility] [place] [facility] [address] [facility] [id number] [place] [address]- 6743 13 May, 2014 [facility] [place] [facility] [address] [facility] [id number] [place] [address]- 3881 13 May, 2014 [facility] [place] [facility] [address] [facility] [id number] [place] [address]- 4899 May, 2014 [facility] [place] [facility] [address] [facility] [id number] [place] [address]- 7935 12 May, 2014 [facility] [place] [facility] [address] [facility] [id number] [place] [address]- 6717 May, [facility] [place] [facility] [address] [id number] [place] [address]- 7191 May, [facility] [place] [facility] [address] [id number] [place] [address]- 0232 Apr, [facility] [place] [facility] [address] [id number] [place] [address]- 8269 Apr, [facility] [place] [facility] [address] [id number] [place] [address]- 8356 Apr, [facility] [place] [facility] [address] [id number] [place] [address]- 5824 Apr, [facility] [place] [facility] [address] [id number] [place] [address]- 3292 Apr, [facility] [place] [facility] [address] [id number] [place] [address]- 1586 Apr, [facility] [place] [facility] [address] [id number] [place] [address]- 0572 Apr, [facility] [place] [facility] [address] [id number] [place] [address]- 0578 Apr, [facility] [place] [facility] [address] [id number] [place] [address]- 2190 Mar, [facility] [place] [facility] [address] [id number] [place] [address]- 0877 Mar, [facility] [place] [facility] [address] [id number] [place] [address]- 5221 Mar, [facility] [place] [facility] [address] [id number] [place] [address]- 4649 Mar, [facility] [place] [facility] [address] [id number] [place] [address]- 9236 Mar, [facility] [place] [facility] [address] [id number] [place] [address]- 3386 Mar, [facility] [place] [facility] [address] [id number] [place] [address]- 2509 Mar, [facility] [place] [facility] [address] [id number] [place] [address]- 4388 Mar, [facility] [place] [facility] [address] [id number] [place] 5055 Mar, [facility] [place] [facility] [address] [id number] [place] [address]- 0235 Mar, [facility] [place] [facility] [address] [id number] [place] [address]- 6146 Mar, [facility] [place] [facility] [address] [id number] [place] [address]- 0380 Mar, [facility] [place] [facility] [address] [id number] [place] [address]- 3406 Mar, [facility] [place] [facility] [address] [id number] [place] [address]- 8000 Mar, [facility] [place] [facility] [address] [id number] [place] [address]- 9210 Feb, [facility] [place] [facility] [address] [id number] [place] [address]- 8745 Feb, [facility] [place] [facility] [address] [id number] [place] [address]- 9791 Feb, [facility] [place] [facility] [address] [id number] [place] [address]- 3146 Feb, [facility] [place] [facility] [address] [id number] [address]- 1739 Feb, [facility] [place] [facility] [address] [id number] [place] [address]- 2682 Feb, [facility] [place] [facility] [address] [id number] [place] [address]- 7882 Feb, [facility] [place] [facility] [address] [id number] [place] [address]- 2811 Feb, [facility] [place] [facility] [address] [id number] [place] [address]- 3743 Feb, [facility] [place] [facility] [address] [id number] [place] [address]- 4799 Feb, [facility] [place] [facility] [address] [id number] [place] [address]- 2383 Feb, [facility] [place] [facility] [address] [id number] [place] [address]- 7136 Feb, [facility] [place] [facility] [address] [id number] [place] [address]- 7632 Feb, [facility] [place] [facility] [address] [id number] [place] [address]- 5278 Feb, [facility] [place] [facility] [address] [id number] [place] [address]- 8172 Feb, [facility] [place] [facility] [address] [id number] [place] [address]- 0517 Feb, [facility] [place] [facility] [address] [id number] [place] [address] Jan, [facility] [place] [facility] [address] [id number] [place] [address] Jan, [facility] [place] [facility] [address] [id number] [place] [address] Jan, [facility] [place] [facility] [address] [id number] [place] [address] Jan, [facility] [place] [facility] [address] [id number] [place] [address] Jan, [facility] [place] [facility] [address] [id number] [place] [address] Jan, [facility] [place] [facility] [address] [id number] [place] [address] Jan, [facility] [place] [facility] [address] [id number] [place] [address] Jan, [facility] [place] [facility] [address] [id number] [place] [address] Dec, [facility] [place] [facility] [address] [id number] [place] [address] Dec, [facility] [place] [facility] [address] [id number] [place] [address] Nov, [facility] [place] [facility] [address] [id number] [place] [address] Nov, [facility] [place] [facility] [address] [id number] [place] [address] Nov, [facility] [place] [facility] [address] [id number] [place] [address] Nov, [facility] [place] [facility] [address] [id number] [place] [address] Nov, [facility] [place] [facility] [address] [id number] [place] [address] Nov, [facility] [place] [facility] [address] [id number] [place] [address] Oct, [facility] [place] [facility] [address] [id number] [place] [address] Oct, [facility] [place] [facility] [address] [id number] [place] [address] Oct, [facility] [place] [facility] [address] [id number] [address] Oct, [facility] [place] [facility] [address] [id number] [place] [address] Sep, [facility] [place] [facility] [address] [id number] [place] [address] Sep, [facility] [place] [facility] [address] [id number] [place] [address] Sep, [facility] [place] [facility] [address] [id number] [place] [address] Sep, [facility] [place] [facility] [address] [id number] [place] [address]- 1884 Sep, [facility] [place] [facility] [address] [id number] [place] [address] Sep, [facility] [place] [facility] [address] [id number] [place] [address] August, [facility] [place] [facility] [address] [id number] [place] [address] August, [facility] [place] [facility] [address] [id number] [place] [address] August, [facility] [place] [facility] [address] [id number] [place] [address] August, [facility] [address] [id number] [place] [address] August, [facility] [place] [facility] [address] [id number] [place] [address] August, [facility] [place] [facility] [address] [id number] [place] [address] 150[address] August, [facility] [address] [id number] [place] [address] August, [facility] [place] [facility] [address] [id number] [place] [address] August, [facility] [place] [facility] [address] [id number] [place] [address]- 00[address] August, [facility] [place] [facility] [address] [id number] [place] [address] August, [facility] [place] [facility] [address] [id number] [place] [address] 9[address] August, [facility] [place] [facility] [address] [id number] [place] [address] Jul, [facility] [place] [facility] [address] [id number] [place] [address] 65[address] Jul, [facility] [place] [facility] [address] [id number] [place] [address] 3771 Jul, [facility] [place] [facility] [address] [id number] [place] [address]- 9791 Jul, [facility] [place] [facility] [address] [id number] [place] [address]- 0244 Jul, [facility] [place] [facility] [address] [id number] [place] [address] 8301 Jul, [facility] [place] [facility] [address] [id number] [place] [address]- 6588 Jul, [facility] [place] [facility] [address] [id number] [place] [address]- 2426 Jul, [facility] [place] [facility] [address] [id number] [place] [address]- 7283 Jul, [facility] [place] [facility] [address] [id number] [place] [address]- 7275 Jul, [facility] [place] [facility] [address] [id number] [place] [address]- 9332 Jul, [facility] [place] [facility] [address] [id number] [place] [address]- 0589 Jun, [facility] [place] [facility] [address] [id number] [place] [address]- 7212 31 Jun, 2013 [facility] [place] [facility] [address] [id number] [place] [address]- 7426 Jun, [facility] [place] [facility] [address] [id number] [place] [address]- 4337 Jun, [facility] [place] [facility] [address] [id number] [place] [address]- 7788 Jun, [facility] [place] [facility] [address] [id number] [place] [address]- 1483 Jun, [facility] [place] [facility] [address] [id number] [place] [address]- 9028 Jun, [facility] [place] [facility] [address] [id number] [place] [address]- 3854 Jun, [facility] [place] [facility] [address] [id number] [place] [address]- 3243 Jun, [facility] [place] [facility] [address] [id number] [place] [address]- 6614 May, [facility] [place] [facility] [address] [id number] [place] [address]- 6737 May, [facility] [place] [facility] [address] [id number] [place] [address] 5049 May, [facility] [place] [facility] [address] [id number] [place] [address]- 9123 Apr, [facility] [place] [facility] [address] [id number] [place] [address]- 9018 Apr, [facility] [place] [facility] [address] [id number] [place] [address]- 1055 Apr, [facility] [place] [facility] [address] [id number] [place] [address]- 6566 Apr, [facility] [place] [facility] [address] [id number] [place] [address]- 2523 Apr, [facility] [place] [facility] [address] [id number] [place] [address]- 4182 Apr, [facility] [place] [facility] [address] [id number] [place] [address]- 5329 Apr, [facility] [place] [facility] [address] [id number] [place] [address]- 3853 Apr, [facility] [place] [facility] [address] [id number] [place] [address]- 7861 Mar, [facility] [place] [facility] [address] [id number] [place] [address]- 4986 Mar, [facility] [place] [facility] [address] [id number] [place] [address] 4024 Feb, [facility] [place] [facility] [address] [id number] [place] [address] 1885 Feb, [facility] [place] [facility] [address] [id number] [place] [address]- 0172 Jan, [facility] [place] [facility] [address] [id number] [place] [address]- 5639 Jan, [facility] [place] [facility] [address] [id number] [place] [address] Jan, [facility] [place] [facility] [address] [id number] [place] [address]- 2516 Jan, [facility] [place] [facility] [address] [id number] [place] [address]- 2768 Jan, [facility] [place] [facility] [address] [id number] [place] [address]- 5189 24 Jan, 2013 [facility] [place] [facility] [address] [id number] [place] [address]- 9732 Jan, [facility] [place] [facility] [address] [id number] [place] [address]- 3118 Jan, [facility] [place] [facility] [address] [id number] [place] [address]- 4149 17 Jan, 2013 [facility] [place] [facility] [address] [id number] [place] [address]- 9500 17 Jan, 2013 [facility] [place] [facility] [address] [id number] [place] [address]- 4138 14 Jan, 2013 [facility] [place] [facility] [address] [id number] [place] 14 Jan, 2013 [facility] [place] [facility] [address] [id number] [place] [address]- 0138 Jan, [facility] [place] [facility] [address] [id number] [place] [address]- 5108 10 Jan, 2012 [facility] [place] [facility] [address] [id number] [place] [address]- 3096 Jan, 2012 [facility] [place] [facility] [address] [id number] [place] [address]- 8482 Jan, 2012 [facility] [place] [facility] [address] [id number] [place] [address]- 1451 Jan, [facility] [place] [facility] [address] [id number] [place] [address]- 2287 Jan, [facility] [place] [facility] [address] [id number] [place] [address]- 6322 08 Jan, 2013 [facility] [place] [facility] [address] [id number] [place] [address]- 4966 Jan, [facility] [place] [facility] [address] [id number] [place] [address]- 8797 Jan, [facility] [place] [facility] [address] [id number] [place] [address]- 6281 Jan, [facility] [place] [facility] [address] [id number], [place] [address]- 9426 Jan, [facility] [place] [facility] [address] [id number][place] [address]- 5432 17 Dec, 2012 [facility] [place] [facility] [address] [id number], [place] [address]- 5030 16 Dec, 2012 [facility] [place] [facility] [address] [id number] [place] [address]- 9516 Nov, [facility] [place] [facility] [address] [id number], [place] [address]- 1584 Oct, [facility] [place] [facility] [address] [id number], [place] [address]- 2548 Oct, [facility] [place] [facility] [address] [id number] [place] [address]- 8916 Oct, [facility] [address] [id number] [place] [address]- 5806 Oct, [facility] [place] [facility] [address] [id number] [place] [address]- 2648 Oct, [facility] [address] [id number] [place] [address]- 6713 Oct, [facility] [place] [facility] [address] [id number] [place] [address]- 9836 Sep, [facility] [address] [id number] [place] [address]- 3982 Sep, [facility] [place] [facility] [address] [id number] [place] [address]- 4477 Sep, [facility] [address] [id number] [place] [address]- 2257 Jul, [facility] [address] [id number] [place] [address]- 1220 Jul, [facility] [place] [facility] [address] [id number] [place] [address]- 5358 Jul, [facility] [address] [id number] [place] [address]- 0471 Jun, [facility] [place] [facility] [address] [id number] [place] [address]- 0052 Jun, [facility] [place] [facility] [address] [id number] [place] [address]- 9530 Jun, [facility] [place] [facility] [address] [id number] [place] [address]- 8579 Jun, [facility] [place] [facility] [address] [id number] [place] [address]- 0592 Jun, [facility] [place] [facility] [address] [id number] [place] [address]- 5834 Jun, [facility] [place] [facility] [address] [id number] [place] [address]- 0847 May, [facility] [address] [id number] [place] [address]- 3506 May, [facility] [address] [id number] [place] [address]- 4408 Apr, [facility] [address] [id number] [place] [address]- 3766 Apr, [facility] [address] [id number] [place] [address]- 4670 Apr, [facility] [address] [id number] [place] [address]- 7986 Apr, [facility] [address] [id number] [place] [address]- 8209 Apr, [facility] [address] [id number] [place] [address]- 1005 Mar, [facility] [address] [id number] [place] [address]- 9497 Mar, [facility] [address] [id number] [place] [address]- 8256 Mar, [facility] [address] [id number] [place] [address]- 8859 Mar, [facility] [address] [id number] [place] [address]- 3899 14 Mar, 2012 [facility] [place] [facility] [address] [id number] [place] [address] 2546 14 Mar, 2012 [facility] [place] [facility] [address] [id number] [place] [address]- 1996 10 Mar, 2012 [facility] [place] [facility] [address] [id number] [place] [address]- 0741 10 Mar, 2012 [facility] [place] [facility] [address] [id number], [place] [address]- 2087 Mar, [facility] [place] [facility] [address] [id number] [place] [address]- 1367 Mar, [facility] [place] [facility] [address] [id number], [place] [address]- 2085 Feb, [facility] [place] [facility] [address] [facility] [id number] [place] [address]- 4444 Feb, [facility] [place] [facility] [address] [id number], [place] [address]- 8610 Feb, [facility] [place] [facility] [address] [id number] [place] [address]- 7142 Feb, [facility] [place] [facility] [address] [id number] [place] [address]- 5572 Feb, [facility] [place] [facility] [address] [id number], [place] [address]- 5568 Feb, [facility] [place] [facility] [address] [id number], [place] [address]- 2056 Feb, [facility] [place] [facility] [address] [id number][place] [address]- 7408 Feb, [facility] [place] [facility] [address] [facility] [id number], [place] [address]- 5895 Feb, [facility] [place] [facility] [address] [facility] [id number], [place] [address]- 0428 Feb, [facility] [place] [facility] [address] [facility] [id number], [place] [address]- 8347 Jan, [facility] [place] [facility] [address] [id number], [place] [address]- 4598 Jan, [facility] [place] [facility] [address] [facility] [id number], [place] [address]- 5898 Jan, [facility] [place] [facility] [address] [facility] [id number], [place] [address]- 1303 Jan, [facility] [place] [facility] [address] [id number] [place] [address]- 2616 28 Sep, 2011 [facility] [place] [facility] [address] [id number] [place] [address]- 5406 25 Sep, 2011 [facility] [place] [facility] [address] [id number] [place] [address] 2546 18 Sep, 2011 [facility] [place] [facility] [address] [id number] [place] [address] 2546 18 Sep, 2011 [facility] [place] [facility] [address] [id number] [place] [address] 2546 17 Sep, 2011 [facility] [place] [facility] [address] [id number] [place] [address]- 9486 14 Sep, 2011 [facility] [place] [facility] [address] [id number] [place] [address]- 5640 13 Dec, 2011 [facility] [place] [facility] [address] [id number] [place] [address]- 9074 13 Dec, 2011 [facility] [place] [facility] [address] [id number] [place] [address]- 3558 06 Dec, 2011 [facility] [place] [facility] [address] [id number] [place] [address]- 2733 31 Nov, 2011 [facility] [place] [facility] [address] [id number] [place] [address]- 0078 30 Nov, 2011 [facility] [place] [facility] [address] [id number] [place] [address]- 4363 Nov, [facility] [place] [facility] [address] [id number] [place] [address] 2544 09 Nov, 2011 [facility] [place] [facility] [address] [id number] [place] [address]- 4806 Sep, [facility] [place] [facility] [address] [id number] [place] [address] 2546 07 Sep, 2011 [facility] [place] [facility] [address] [id number] [place] [address]- 4794 Sep, [facility] [address] [id number] [place] [address]- 5669 August, [facility] [place] [facility] [address] [id number] [place] [address]- 4947 August, [facility] [place] [facility] [address] [id number] [place] [address]- 2711 August, [facility] [place] [facility] [address] [id number] [place] [address]- 6038 August, [facility] [place] [facility] [address] [id number] [place] [address]- 9846 August, [facility] [place] [facility] [address] [id number] [place] [address]- 7043 August, [facility] [place] [facility] [address] [id number] [place] [address]- 6832 August, [facility] [place] [facility] [address] [id number] [place] [address]- 0932 August, [facility] [place] [facility] [address] [id number] [place] [address]- 6848 August, [facility] [place] [facility] [address] [id number] [place] [address]- 0707 Jul, [facility] [place] [facility] [address] [id number] [place] [address]- 1575 Jun, [facility] [place] [facility] [address] [id number] [place] [address]- 4071 Jun, [facility] [place] [facility] [address] [id number] [place] [address]- 7809 Jun, [facility] [place] [facility] [address] [id number] [place] [address]- 8264 Jun, [facility] [place] [facility] [address] [id number] [place] [address]- 0483 Jun, [facility] [place] [facility] [address] [id number] [place] [address]- 2028 04 Jun, 2011 [facility] [place] [facility] [address] [id number] [place] [address]- 8216 Jun, [facility] [place] [facility] [address] [id number] [place] [address]- 3616 Jun, [facility] [place] [facility] [address] [id number] [place] [address]- 1586 27 May, 2011 [facility] [place] [facility] [address] [id number] [place] [address]- 7976 21 May, 2011 [facility] [place] [facility] [address] [id number] [place] [address]- 2116 20 May, 2011 [facility] [place] [facility] [address] [id number] [place] [address]- 3366 19 May, 2011 [facility] [place] [facility] [address] [id number] [place] [address]- 1786 17 May, 2011 [facility] [place] [facility] [address] [id number] [place] [address]- 4055 16 May, 2011 [facility] [place] [facility] [address] [id number] [place] [address]- 4582 14 May, 2011 [facility] [place] [facility] [address] [id number] [place] [address]- 3348 Apr, [facility] [place] [facility] [address] [id number] [place] [address]- 1795 16 Apr, 2011 [facility] [place] [facility] [address] [id number] [place] [address] 2545 13 Apr, 2011 [facility] [place] [facility] [address] [id number] [place] [address]- 1192 11 Apr, 2011 [facility] [place] [facility] [address] [id number] [place] [address]- 8086 10 Apr, 2011 [facility] [place] [facility] [address] [id number] [place] [address]- 3220 Apr, [facility] [place] [facility] [address] [id number] [place] [address]- 7039 Apr, [facility] [place] [facility] [address] [id number] [place] [address]- 6487 Apr, [facility] [place] [facility] [address] [id number] [place] [address]- 8836 Mar, [facility] [place] [facility] [address] [id number] [place] [address]- 1217 Mar, [facility] [place] [facility] [address] [id number] [place] [address]- 7199 Feb, [facility] [place] [facility] [address] [id number] [place] [address]- 9836 Feb, [facility] [place] [facility] [address] [id number] [place] [address]- 7964 Feb, [facility] [place] [facility] [address] [id number] [place] [address]- 1206 16 Feb, 2011 [facility] [place] [facility] [address] [id number] [place] [address]- 0575 Feb, [facility] [place] [facility] [address] [id number] [place] [address]- 8365 24 Jan, 2011 [facility] [place] [facility] [address] [id number] [place] [address]- 6694 Nov, [facility] [place] [facility] [address] [id number], [place] [address]- 6826 Sep, [facility] [place] [facility] [address] [id number] [place] [address]- 0137 August, [facility] [place] [facility] [address] [id number] [place] [address]- 0226 Jun, [facility] [place] [facility] [address] [id number] [place] [address]- 3422 14 May, 2010 [facility] [place] [facility] [address] [facility] [id number] [place] [address]- 8200 18 Apr, 2010 [facility] [address] [id number] [place] [address]- 0156 22 Mar, 2010 [facility] [address] [facility] [id number] [place] [address]- 3766 14 Mar, 2010 [facility] [address] [facility] [id number] [place] [address]- 4066 14 Mar, 2010 [facility] [address] [facility] [id number] [place] [address] 12 Feb, 2010 [facility] [address] [facility] [id number] [place] [address] Feb, [facility] [address] [facility] [id number] [place] [address] Jan, [facility] [address] [facility] [id number] [place] [address] Jan, [facility] [address] [facility] [id number] [place] [address] Jan, [facility] [address] [facility] [id number] [place] [address] Oct, [facility] [address] [facility] [id number] [place] [address] Oct, [facility] [address] [facility] [id number] [place] [address] 15 Apr, 2009 [facility] [address] [facility] [id number] [address] Mar, [facility] [address] [facility] [id number], [place] [address] Mar, [facility] [address] [facility] [id number][place] [address] 23 Jan, 2009 [facility] [address] [facility] [id number][place] [address] 12 Dec, 2008 IMMUNIZATIONS No Known Immunizations SOCIAL HISTORY Never Assessed REASON FOR VISIT Medication refill request PLAN OF CARE VITAL SIGNS MEDICATIONS Medication Instructions Dosage Frequency Start Date End Date Duration Status ProAir HFA 108 (90 Base) MCG/ACT Inhalation every 4 hrs 2 puffs as needed for cough, wheeze or SOB 4h May, 30 days Active RESULTS No Results PROCEDURES No [...]
--- OUTSIDE RECORDS SUMMARY | 2018-02-13 03:55 | XMS REPORT ---
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 Role Phone YOUNG GARCÍA Unavailable PROBLEMS Type Condition ICD9-CM Code [id number] Code Onset Dates Condition Status SNOMED Code Problem Asthma J45.909 Active 167277617 Problem Reactive depression F32.9 Active 19107775 Problem Secondary hypertension I15.9 Active 80853989 Problem Open bite of left hand, initial encounter S61.452A Active 802739958 Problem Bitten by cat, initial encounter W55.01XA Active 811314173 Problem Moderate persistent asthma with exacerbation J45.41 Active 739445639 Problem Bronchitis J40 Active 72025608 Problem Simple chronic bronchitis J41.0 Active 67322175 Problem Recurrent major depressive disorder, in full remission F33.42 Active 343979013 Problem Renal failure N19 Active 06202890 Problem Joint pain of left hip on movement M25.552 Active 001738358 Problem Hypercholesterolemia E78.00 Active 33374768 Problem Environmental allergies Z91.09 Active 798971614 Problem PVD (peripheral vascular disease) I73.9 Active 010402981 Problem Diabetes mellitus E11.9 Active 77442704 Problem Proteinuria R80.9 Active 66728200 Problem Insomnia G47.00 Active 303368012 Problem Neuropathy G62.9 Active 980115686 Problem GERD (gastroesophageal reflux disease) K21.9 Active 717745713 ALLERGIES Substance Reaction Event Type Date Status Stadol Unknown Drug Allergy Jun, Active Glucotrol Unknown Drug Allergy Jun, Active ENCOUNTERS Encounter Location Date Diagnosis [facility] [address] [id number] [address] Oct, Dermatitis due to plants, including poison chris, sumac, and oak L25.5 [facility] [address] [facility] [id number] [address] Sep, Diabetes mellitus E11.9 and Medication management Z79.899 [facility] [id number] [place] [address] 14395- 1544 Sep, [place] [address] [address]20- [address] August, Neuropathy G62.9 [facility] [place] [address] [address] August, Open bite of left hand, initial encounter S61.452A ; Encounter for immunization Z23 and Bitten by cat, initial encounter W55.01XA [place] [address] 52314- 4766 05 Jul, 2017 Environmental allergies Z91.09 [place] [address] 28964- 4969 15 Jun, 2017 [place] [address] 03078- 6468 Jun, Simple chronic bronchitis J41.0 ; PVD (peripheral vascular disease) I73.9 and Recurrent major depressive disorder, in full remission F33.42 [facility] [address] [id number] 13 Jun, 2017 Dental examination Z01.20 [facility] [place] [id number] [place] [address] 78258 [address] Jun, Moderate persistent asthma with exacerbation J45.41 [place] [id number] [place] [address] 73563- 5806 May, Neuropathy G62.9 and Diabetes mellitus E11.9 [place] [address] 88764- 7452 Apr, [facility] [address] [address] Apr, Cough R05 [place] [address] 94394- 0859 Feb, [facility] [id number] [place] [address] 22571- 2596 Feb, [facility] [id number] [place] [address] 67081- 1199 Feb, Diabetes mellitus E11.9 ; Neuropathy G62.9 ; Joint pain of left hip on movement M25.552 and Encounter for immunization Z23 [facility] [address] [address]- [address] Feb, [facility] [address] 40242- 2593 Feb, Diabetes mellitus E11.9 [facility] [address] 48861- 0101 Feb, [facility] [address] 77559- 6904 Jan, [facility] [address] 10887- 1354 Jan, Secondary hypertension I15.9 [facility] [id number] [place] [address] 73955- 2634 Dec, Diabetes mellitus E11.9 [facility] [id number] [place] [address] [id number] Nov, Encounter for dental examination Z01.20 [facility] [id number] [place] [address] 59968 [address] Oct, Allergic contact dermatitis due to plants, except food L23.7 [facility] [id number] [place] [address] 57808- 6770 Oct, [facility] [id number] [place] [address] 63379- 2590 Oct, Diabetes mellitus E11.9 ; PVD (peripheral vascular disease) I73.9 ; Neuropathy G62.9 ; GERD (gastroesophageal reflux disease) K21.9 ; Insomnia G47.00 ; Environmental allergies Z91.09 ; Secondary hypertension I15.9 ; Reactive depression F32.9 ; Hypercholesterolemia E78.00 and Joint pain of left hip on movement M25.552 [place] [address] 09075- 6422 Sep, Diabetes mellitus E11.9 [place] [address] 17986- 5701 Sep, Diabetes mellitus E11.9 [facility] [address] 16184- 7019 Sep, Diabetes mellitus E11.9 [place] [address] 12490- 8296 Sep, Neuropathy G62.9 [place] [address] 99767- 4954 August, [place] [address] 72374- 1450 Jul, [facility] [address] 91232- 0355 Jun, [place] [address] 28167- 7586 Jun, Diabetes mellitus E11.9 ; PVD (peripheral vascular disease) I73.9 ; Neuropathy G62.9 ; Joint pain of left hip on movement M25.552 ; Renal failure N19 ; Asthma J45.909 ; Reactive depression F32.9 ; Pure hypercholesterolemia, unspecified E78.00 and Insomnia G47.00 [facility] [address] 92659- 9750 Jun, Joint pain of left hip on movement M25.552 and Diabetes mellitus E11.9 [place] [address] 39898- 9579 Jun, [facility] [address] [address] May, Cough R05 and Bronchitis J40 [facility] [id number] [place] [address] 36070- 3049 May, [facility] [address] 62808- 0807 May, [facility] [id number] [place] [address] 19915- 4042 May, Asthma J45.909 and Bronchitis J40 [facility] [address] 47039- 9012 May, [facility] [address] 89314- 5727 May, Bronchitis J40 [facility] [id number] [place] [address] 72412- 2188 May, [facility] [address] 53892- 9911 Apr, Diabetes mellitus E11.9 ; PVD (peripheral vascular disease) I73.9 ; GERD (gastroesophageal reflux disease) K21.9 ; Asthma J45.909 ; Insomnia G47.00 ; Environmental allergies Z91.09 ; Secondary hypertension I15.9 ; Joint pain of left hip on movement M25.552 ; Hypercholesterolemia E78.0 and Reactive depression F32.9 [facility] [id number] [place] [address] 67455- 5204 Mar, Diabetes mellitus E11.9 ; PVD (peripheral vascular disease) I73.9 and Hypercholesterolemia E78.0 [facility] [id number] [place] [address] 48013- 3100 Mar, Diabetes mellitus E11.9 and Hypercholesterolemia E78.0 [facility] [id number] [place] [address] 44728- 2334 Mar, [facility] [id number] [place] [address] 12960- 0246 Feb, [facility] [id number] [address] 4[address] Feb, [place] [id number] [place] [address] 54941- 9191 Feb, [place] [id number] [place] [address] 67242- 7320 31 Jan, 2016 Encounter for immunization Z23 [place] [address] 13992- 5355 Jan, [place] [id number] [place] [address] 33949- 7611 Dec, [place] [address] 49321- 2608 Dec, Diabetes mellitus E11.9 ; PVD (peripheral vascular disease) I73.9 ; GERD (gastroesophageal reflux disease) K21.9 ; Insomnia G47.00 ; Joint pain of left hip on movement M25.552 ; Asthma J45.909 ; Environmental allergies Z91.09 ; Hypercholesterolemia E78.0 ; Essential hypertension I10 and Neuropathy G62.9 [place] [id number] [place] [address] 41246- 4410 Nov, [place] [id number] [place] [address] 49571- 2689 Nov, [place] [id number] [place] [address] 45500- 6727 Oct, PVD (peripheral vascular disease) I73.9 and Diabetes mellitus E11.9 [place] [id number] [place] [address] 10483- 1781 Sep, Diabetes mellitus E11.9 ; PVD (peripheral vascular disease) I73.9 ; Neuropathy G62.9 ; Joint pain of left hip on movement M25.552 ; GERD ( gastroesophageal reflux disease) K21.9 ; Asthma J45.909 ; Insomnia G47.00 ; Secondary hypertension I15.9 and Hypercholesteremia E78.0 [place] [id number] [place] [address] 42202- 8502 August, [facility] [id number] [place] [address] 20241- 1336 August, Neuropathy G62.9 [facility] [id number] [place] [address] 33175- 7717 August, Neuropathy G62.9 [facility] [id number] [place] [address] 73680- 4256 Jun, Diabetes mellitus E11.9 ; Joint pain of left hip on movement M25.552 ; PVD (peripheral vascular disease) I73.9 ; Neuropathy G62.9 ; GERD (gastroesophageal reflux disease) K21.9 ; Asthma J45.909 ; Insomnia G47.00 ; Environmental allergies Z91.09 ; HTN (hypertension) I10 and Hypercholesteremia E78.0 [facility] [id number] [place] [address] 93606- 1517 Jun, [facility] [address] 79344- 7709 Jun, [facility] [address] 79426- 5768 Jun, [facility] [id number] [place] [address] 91920- 6913 Apr, [facility] [id number] [place] [address] 30595- 0816 Apr, [facility] [id number] [place] [address] 44536- 1111 Apr, Sinusitis J32.9 [facility] [id number] [place] [address] 34753- 2464 Apr, Neuropathy G62.9 [facility] [id number] [place] [address] 41238- 9479 Mar, [facility] [id number] [place] [address] 36731- 7509 Mar, [facility] [id number] [place] [address] 70252- 3869 Mar, Diabetes mellitus E11.9 ; PVD (peripheral vascular disease) I73.9 ; Neuropathy G62.9 ; GERD (gastroesophageal reflux disease) K21.9 ; Renal failure N19 ; Asthma J45.909 ; Insomnia G47.00 ; Environmental allergies Z91.09 ; Sinusitis J32.9 ; Cough R05 ; Edema R60.9 ; HTN (hypertension) I10 and Hypercholesterolemia E78.0 [facility] [id number] [place] [address] 65464 -6265 Mar, Dysuria R30.0 ; Vomiting, unspecified R11.10 ; Benign essential hypertension I10 and Dizziness R42 [facility] [id number] [place] [address] 19354- 0051 Mar, [place] [address] 78168- 1427 Mar, [place] [address] 32606- 2228 Feb, [facility] [address] 44797- 3145 Feb, [facility] [id number] [place] [address] 07886- 5338 Feb, [facility] [address] 18344- 1575 Feb, [place] [id number] [place] [address] 16963- 8817 Feb, Joint pain of left hip on movement M25.552 ; Lumbago M54.5 and UTI (urinary tract infection) N39.0 [facility] [id number] [place] [address] 38722- 4253 Feb, [facility] [address] 49387- 1844 Feb, [facility] [address], [place] [address]- 0753 Jan, [facility] [id number] [place] [address] 35302- 1421 Jan, [facility] [id number] [place] [address] 53996- 4572 Jan, [facility] [id number] [place] [address] 51291- 1568 Jan, [facility] [id number] [place] [address] 67986- 1179 Jan, 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 [facility] [id number] [place] [address] 63495- 3108 30 Dec, 2014 Hypertension 401.9 and Diabetes 250.00 [facility] [id number] [place] [address] 43381- 8305 Dec, Diabetes 250.00 ; Influenza vaccine administered V04.81 ; Unspecified peripheral vascular disease 443.9 ; Issue of repeat prescriptions V68.1 ; Unspecified hereditary and idiopathic peripheral neuropathy 356.9 ; Insomnia, unspecified 780.52 ; Hypercholesteremia 272.0 ; Pain in joint, site unspecified 719.40 ; Dizziness 780.4 and PCV-13 (PREVNAR) DX V03.82 [facility] [address] [place] [address] 22857- 1433 Dec, [facility] [id number] [place] [address] 98921- 9079 Dec, [facility] [id number] [place] [address] 91130- 2841 Dec, [facility] [id number] [place] [address] 99070- 7745 Dec, [facility] [id number] [place] [address] 47911- 2766 Dec, [facility] [id number] [place] [address] [id number]- 1963 Dec, [facility] [id number] [place] [address] 03306- 6081 Nov, [facility] [id number] [place] [address] 68603- 5968 Nov, Environmental allergies V15.09 ; Sacroiliitis, not elsewhere classified 720.2 and Cough 786.2 [facility] [id number] [place] [address] 95758- 0442 Oct, [facility] [id number] [place] [address] 02633- 6067 Oct, [facility] [id number] [place] [address] [id number]- 7122 Oct, [place] [id number] [place] [address] 43302- 9326 Sep, [facility] [id number] [place] [address] 20822- 6452 Sep, [facility] [id number] [place] [address] 41976- 0832 Sep, Dysuria 788.1 and Diabetes with other specified manifestations, type II or unspecified type, not stated as uncontrolled 250.80 [place] [id number] [place] [address] 24060- 0087 Sep, [facility] [id number] [place] [address] 53123- 8482 Sep, Diabetes with other specified manifestations, type II or unspecified type, not stated as uncontrolled 250.80 [place] [id number] [place] [address] 01314- 8857 Sep, DM w/o complication type II 250.00 ; Unspecified peripheral vascular disease 443.9 ; Pain in joint, pelvic region and thigh 719.45 ; Asthma , unspecified, unspecified status 493.90 ; Hypercholesteremia 272.0 ; Fatigue 780.79 ; UTI (lower urinary tract infection) 599.0 and Essential hypertension 401.9 [facility] [address], [place] [address]- 3732 Sep, [facility] [address], [place] [address]- 6507 Sep, [facility] [address] 7653 Sep, [facility] [address], [place] [address]- 2858 August, [facility] [id number] [place] [address] 75181- 1326 August, [facility] [address], [place] [address]- 2133 August, Diabetes with other specified manifestations, type II or unspecified type, not stated as uncontrolled 250.80 [facility] [address], [place] [address]- 3438 Jul, Peripheral vascular disease 443.9 [facility] [address], [place] [address]- 0912 Jul, [facility] [address], [place] [address]- 6322 Jul, [facility] [address], [place] [address]- 5380 Jun, [facility] [address], [place] [address]- 8238 Jun, [facility] [address], [place] [address]- 6749 Jun, [facility] [address], [place] [address]- 4886 Jun, [facility] [address], [place] [address]- 9726 Jun, [facility] [place] [facility] [address] [id number] [place] [address]- 8373 Jun, [facility] [place] [facility] [address] [id number] [place] [address]- 3414 Jun, [facility] [place] [facility] [address] [id number] [place] [address]- 0629 Jun, [facility] [place] [facility] [address] [id number] [place] [address]- 0261 Jun, 2014 [facility] [place] [facility] [address] [id number] [place] [address]- 4158 May, 2014 [facility] [place] [facility] [address] [id number] [place] [address]- 4084 May, 2014 [facility] [place] [facility] [address] [facility] [id number] [place] [address]- 9479 24 May, 2014 [facility] [place] [facility] [address] [id number] [place] [address]- 7859 May, 2014 [facility] [place] [facility] [address] [id number] [place] [address]- 6883 18 May, 2014 [facility] [place] [facility] [address] [facility] [id number] [place] [address]- 5617 May, 2014 [facility] [place] [facility] [address] [facility] [id number] [place] [address]- 1814 17 May, 2014 [facility] [place] [facility] [address] [id number] [place] [address]- 7913 13 May, 2014 [facility] [place] [facility] [address] [id number] [place] [address]- 1972 13 May, 2014 [facility] [place] [facility] [address] [id number] [place] [address]- 6089 12 May, 2014 [facility] [place] [facility] [address] [facility] [id number] [place] [address]- 2845 12 May, 2014 [facility] [place] [facility] [address] [facility] [id number] [place] [address]- 0350 09 May, 2014 [facility] [address] [id number] [place] [address]- 6877 May, [facility] [address] [id number] [place] [address]- 5313 Apr, [facility] [address] [id number] [place] [address]- 7727 Apr, [facility] [address] [id number] [place] [address]- 4266 Apr, [facility] [address] [id number] [place] [address]- 8688 Apr, [facility] [address] [id number] [place] [address]- 0028 Apr, [facility] [address] [id number] [place] [address]- 4372 Apr, [facility] [address] [id number] [place] [address]- 1577 Apr, [facility] [address] [id number] [place] [address]- 2336 Apr, [facility] [address] [id number] [place] [address]- 0849 Mar, [facility] [address] [id number] [place] [address]- 3812 Mar, [facility] [address] [id number] [place] [address]- 6863 Mar, [facility] [address] [id number] [place] [address]- 9424 Mar, [facility] [address] [id number] [place] [address]- 7339 Mar, [facility] [address] [id number] [place] [address]- 4099 Mar, [facility] [place] [facility] [address] [id number] [place] 5660 Mar, [facility] [place] [facility] [address] [id number] [place] [address] Mar, [facility] [place] [facility] [address] [id number] [place] [address] Mar, [facility] [place] [facility] [address] [id number] [place] [address] Mar, [facility] [place] [facility] [address] [id number] [place] [address] Mar, [facility] [place] [facility] [address] [id number] [place] [address] Mar, [facility] [place] [facility] [address] [id number] [place] [address] Mar, [facility] [place] [facility] [address] [id number] [place] [address]- [address] Mar, [facility] [place] [facility] [address] [id number] [place] [address] Feb, [facility] [place] [facility] [address] [id number] [place] [address] Feb, [facility] [place] [facility] [address] [id number] [place] [address] Feb, [facility] [place] [facility] [address] [id number] [place] [address]- [address] Feb, [facility] [place] [facility] [address] [id number] [place] [address] Feb, [facility] [place] [facility] [address] [id number] [place] [address]- [address] Feb, [facility] [place] [facility] [address] [id number] [place] [address] Feb, [facility] [place] [facility] [address] [id number], [place] [address] Feb, [facility] [place] [facility] [address] [id number] [place] [address] Feb, [facility] [place] [facility] [address] [id number] [place] [address]- [address] Feb, [facility] [place] [facility] [address] [id number] [place] [address]- [address] Feb, [facility] [place] [facility] [address] [id number] [place] [address]- [address] Feb, [facility] [place] [facility] [address] [id number] [place] [address]- [address] Feb, [facility] [place] [facility] [address] [id number] [place] [address]- [address] Feb, [facility] [place] [facility] [address] [id number] [place] [address]- [address] Feb, [facility] [place] [facility] [address] [id number] [place] [address]- [address] Feb, [facility] [place] [facility] [address] [id number] [place] [address]- [address] Jan, [facility] [place] [facility] [address] [id number] [place] [address]- [address] Jan, [facility] [place] [facility] [address] [id number], [place] [address] Jan, [facility] [place] [facility] [address] [id number], [place] [address] Jan, [facility] [place] [facility] [address] [id number], [place] [address] Jan, [facility] [place] [facility] [address] [id number], [place] [address] Jan, [facility] [place] [facility] [address] [id number] [place] [address] Jan, [facility] [place] [facility] [address] [id number] [place] [address] Jan, [facility] [place] [facility] [address] [id number] [place] [address] Dec, [facility] [place] [facility] [address] [id number] [place] [address] 0[address] Dec, [facility] [place] [facility] [address] [id number] [place] [address] 0073 Nov, [facility] [place] [facility] [address] [id number] [place] [address] 1354 Nov, [facility] [place] [facility] [address] [id number] [place] [address]- 0763 Nov, [facility] [place] [facility] [address] [id number] [place] [address]- 0133 Nov, [facility] [place] [facility] [address] [id number] [place] [address]- 5[address] Nov, [facility] [place] [facility] [address] [id number] [place] [address]- 7852 Nov, [facility] [place] [facility] [address] [id number] [place] [address]- 9163 Oct, [facility] [place] [facility] [address] [id number] [place] [address]- 7517 Oct, [facility] [place] [facility] [address] [id number] [place] [address] 3859 Oct, [facility] [place] [facility] [address] [id number] [place] [address]- 6743 Oct, [facility] [place] [facility] [address] [id number] [place] [address]- 4778 Sep, [facility] [place] [facility] [address] [id number] [place] [address]- 7406 Sep, [facility] [place] [facility] [address] [id number] [place] [address]- 5046 Sep, [facility] [place] [facility] [address] [id number] [place] [address]- 5797 Sep, [facility] [place] [facility] [address] [id number] [place] [address]- 9024 Sep, [facility] [place] [facility] [address] [id number] [place] [address]- 8068 Sep, [facility] [place] [facility] [address] [id number] [place] [address]- 9768 August, [facility] [place] [facility] [address] [id number] [place] [address]- 9564 August, [facility] [place] [facility] [address] [id number] [place] [address]- 5884 August, [facility] [place] [facility] [address] [id number] [place] [address]- 3025 August, [facility] [place] [facility] [address] [id number] [place] [address]- 0986 August, [facility] [place] [facility] [address] [id number] [place] [address]- 5428 August, [facility] [place] [facility] [address] [id number] [place] [address]- 3683 August, [facility] [place] [facility] [address] [id number] [place] [address]- 0142 August, [facility] [place] [facility] [address] [id number] [place] [address]- 9113 August, [facility] [place] [facility] [address] [id number] [place] [address]- 6155 August, [facility] [place] [facility] [address] [id number] [place] [address]- 0929 August, [facility] [place] [facility] [address] [id number] [place] [address]- 0013 August, [facility] [place] [facility] [address] [id number] [place] [address]- 2567 Jul, [facility] [place] [facility] [address] [id number] [place] [address] 3151 Jul, [facility] [place] [facility] [address] [id number] [place] [address]- 6204 Jul, [facility] [place] [facility] [address] [id number] [place] [address]- 0740 Jul, [facility] [place] [facility] [address] [id number] [place] [address]- 0082 Jul, [facility] [place] [facility] [address] [id number] [place] [address]- 3527 Jul, [facility] [place] [facility] [address] [id number] [place] [address]- 4152 Jul, [facility] [place] [facility] [address] [id number] [place] [address]- 2385 Jul, [facility] [place] [facility] [address] [id number] [place] [address]- 0756 Jul, [facility] [place] [facility] [address] [id number] [place] [address]- 4213 Jul, [facility] [place] [facility] [address] [id number] [place] [address]- 0011 Jul, [facility] [place] [facility] [address] [id number] [place] [address]- 0632 Jun, [facility] [place] [facility] [address] [id number] [place] [address]- 5031 31 Jun, 2013 [facility] [place] [facility] [address] [id number] [place] [address]- 8663 Jun, [facility] [place] [facility] [address] [id number] [place] [address]- 4458 28 Jun, 2013 [facility] [place] [facility] [address] [id number] [place] [address]- 5981 Jun, [facility] [place] [facility] [address] [id number] [place] [address]- 6333 Jun, [facility] [place] [facility] [address] [id number] [place] [address]- 5836 Jun, [facility] [place] [facility] [address] [id number] [place] [address]- 3962 Jun, [facility] [place] [facility] [address] [id number] [place] [address]- 0945 Jun, [facility] [place] [facility] [address] [id number] [place] [address]- 8604 May, [facility] [place] [facility] [address] [id number] [place] [address]- 0031 May, [facility] [place] [facility] [address] [id number] [place] [address]- 5887 May, [facility] [place] [facility] [address] [id number] [place] [address]- 7371 Apr, [facility] [place] [facility] [address] [id number] [place] [address]- 4037 Apr, [facility] [place] [facility] [address] [id number] [place] [address]- 0818 Apr, [facility] [place] [facility] [address] [id number] [place] [address]- 0865 Apr, [facility] [place] [facility] [address] [id number] [place] [address]- 8350 Apr, [facility] [place] [facility] [address] [id number] [place] [address]- 3792 Apr, [facility] [place] [facility] [address] [id number] [place] [address]- 2892 Apr, [facility] [place] [facility] [address] [id number] [place] [address]- 8479 Apr, [facility] [place] [facility] [address] [id number], [place] [address] 136[address] 05 Mar, 2013 [facility] [place] [facility] [address] [id number] [place] [address]- 1206 05 Mar, 2013 [facility] [place] [facility] [address] [id number], [place] [address]- 1223 Feb, [facility] [place] [facility] [address] [id number] [place] [address]- 4970 Feb, [facility] [place] [facility] [address] [id number] [place] [address] 1916 Jan, [facility] [place] [facility] [address] [id number] [place] [address] Jan, [facility] [place] [facility] [address] [id number] [place] [address]- 8892 Jan, [facility] [place] [facility] [address] [id number] [place] [address]- 6716 Jan, [facility] [place] [facility] [address] [id number] [place] [address]- 6753 24 Jan, 2013 [facility] [place] [facility] [address] [id number] [place] [address]- 7054 24 Jan, 2013 [facility] [place] [facility] [address] [id number] [place] [address]- 7482 Jan, [facility] [place] [facility] [address] [id number], [place] [address]- 6890 Jan, [facility] [place] [facility] [address] [id number], [place] [address]- 8113 17 Jan, 2013 [facility] [place] [facility] [address] [id number] [place] 17 Jan, 2013 [facility] [place] [facility] [address] [id number] [address] 14 Jan, 2013 [facility] [place] [facility] [address] [id number] [place] [address]- 6108 14 Jan, 2013 [facility] [place] [facility] [address] [id number] [place] [address]- 0115 10 Jan, 2012 [facility] [place] [facility] [address] [id number] [place] [address]- 2645 10 Jan, 2012 [facility] [place] [facility] [address] [id number] [place] [address]- 4184 10 Jan, 2012 [facility] [place] [facility] [address] [id number] [place] [address]- 5627 10 Jan, 2012 [facility] [place] [facility] [address] [id number] [place] [address]- 0972 09 Jan, 2012 [facility] [place] [facility] [address] [id number] [place] [address]- 0432 Jan, 2012 [facility] [place] [facility] [address] [id number] [place] [address]- 4467 08 Jan, 2012 [facility] [place] [facility] [address] [id number] [place] [address]- 4928 Jan, 2012 [facility] [place] [facility] [address] [id number] [place] [address]- 8005 Jan, 2012 [facility] [place] [facility] [address] [id number] [place] [address]- 5729 Jan, 2012 [facility] [place] [facility] [address] [id number] [place] [address]- 0045 04 Jan, 2013 [facility] [place] [facility] [address] [id number] [place] [address]- 3670 17 Dec, 2012 [facility] [place] [facility] [address] [id number] [place] [address]- 9072 16 Dec, 2012 [facility] [place] [facility] [address] [id number] [place] [address]- 6000 Nov, [facility] [place] [facility] [address] [id number] [place] [address]- 2546 08 Oct, 2012 [facility] [place] [facility] [address] [id number] [place] [address]- 1448 Oct, [facility] [address] [id number] [place] [address]- 7762 Oct, [facility] [place] [facility] [address] [id number] [place] [address]- 5301 Oct, [facility] [place] [facility] [address] [id number] [place] [address]- 8065 Oct, [facility] [place] [facility] [address] [id number] [place] [address]- 7669 Oct, [facility] [place] [facility] [address] [id number] [place] [address]- 7523 Sep, [facility] [place] [facility] [address] [id number] [place] [address]- 6753 Sep, [facility] [place] [facility] [address] [id number] [place] [address]- 8401 Sep, [facility] [place] [facility] [address] [id number] [place] [address]- 4565 Jul, [facility] [place] [facility] [address] [id number] [place] [address]- 1292 Jul, [facility] [place] [facility] [address] [id number] [place] [address]- 1150 Jul, [facility] [place] [facility] [address] [id number] [place] [address]- 3110 Jun, [facility] [place] [facility] [address] [id number] [place] [address]- 0893 Jun, [facility] [place] [facility] [address] [id number] [place] [address]- 5943 Jun, [facility] [place] [facility] [address] [id number] [place] [address]- 1531 Jun, [facility] [place] [facility] [address] [id number] [place] [address]- 2863 Jun, [facility] [place] [facility] [address] [id number] [place] [address]- 0745 Jun, [facility] [address] [id number] [place] [address]- 9596 May, [facility] [address] [id number] [place] [address]- 1936 May, [facility] [address] [id number] [place] [address]- 5460 Apr, [facility] [address] [id number] [place] [address]- 7526 Apr, [facility] [address] [id number] [place] [address]- 1995 Apr, [facility] [address] [id number] [place] [address]- 9743 Apr, [facility] [address] [id number] [place] [address]- 5637 Apr, [facility] [address] [id number] [place] [address]- 6355 Mar, [facility] [address] [id number] [place] [address]- 0825 31 Mar, 2012 [facility] [address] [id number] [place] [address]- 3496 Mar, [facility] [address] [id number] [place] [address]- 6496 27 Mar, 2012 [facility] [place] [facility] [address] [id number] [place] [address]- 2546 14 Mar, 2012 [facility] [address] [id number] [place] [address]- 9304 14 Mar, 2012 [facility] [place] [facility] [address] [id number] [place] [address]556 10 Mar, 2012 [facility] [address] [id number] [place] [address]- 6049 10 Mar, 2012 [facility] [place] [facility] [address] [id number] [place] [address]- 1787 Mar, [facility] [place] [facility] [address] [id number] [place] [address]- 6186 Mar, [facility] [place] [facility] [address] [id number] [place] [address]- 5512 Feb, [facility] [place] [facility] [address] [id number] [place] [address]- 1319 Feb, [facility] [place] [facility] [address] [id number] [place] [address]- 8919 Feb, [facility] [place] [facility] [address] [id number] [place] [address]- 5459 Feb, [facility] [place] [facility] [address] [facility] [id number] [place] [address]- 2367 Feb, [facility] [place] [facility] [address] [id number] [place] [address]- 0264 Feb, [facility] [place] [facility] [address] [id number] [place] [address]- 9049 Feb, [facility] [place] [facility] [address] [id number] [place] [address]- 5634 Feb, [facility] [place] [facility] [address] [id number] [place] [address]- 1228 Feb, [facility] [place] [facility] [address] [id number] [place] [address]- 8179 Feb, [facility] [place] [facility] [address] [id number] [place] [address]- 5459 Jan, [facility] [place] [facility] [address] [id number] [place] [address]- 9032 Jan, [facility] [place] [facility] [address] [id number] [place] [address]- 9795 Jan, [facility] [place] [facility] [address] [id number] [place] [address]- 9126 Jan, [facility] [place] [facility] [address] [id number] [place] [address]- 3830 28 Sep, 2011 [facility] [place] [facility] [address] [id number] [place] [address]- 3946 25 Dec, 2011 [facility] [place] [facility] [address] [id number] [place] [address] 2546 18 Sep, 2011 [facility] [place] [facility] [address] [id number] [place] [address] 2549 18 Sep, 2011 [facility] [place] [facility] [address] [id number] [place] [address]- 3978 17 Sep, 2011 [facility] [place] [facility] [address] [id number] [place] [address]- 1234 14 Dec, 2011 [facility] [place] [facility] [address] [id number] [place] [address]- 5876 13 Dec, 2011 [facility] [place] [facility] [address] [id number] [place] [address]- 8766 13 Dec, 2011 [facility] [place] [facility] [address] [id number] [place] [address]- 1990 06 Dec, 2011 [facility] [place] [facility] [address] [id number] [place] [address]- 3075 31 Nov, 2011 [facility] [place] [facility] [address] [id number] [place] [address]- 3959 30 Nov, 2011 [facility] [place] [facility] [address] [id number] [place] [address]- 3636 Nov, [facility] [place] [facility] [address] [id number] [place] [address]- 7142 09 Nov, 2011 [facility] [place] [facility] [address] [id number] [place] [address]- 5668 Sep, [facility] [place] [facility] [address] [id number] [place] [address]- 3987 Sep, [facility] [place] [facility] [address] [id number] [place] [address]- 5369 Sep, [facility] [address] [id number] [place] [address]- 6339 August, [facility] [address] [id number] [place] [address]- 5681 August, [facility] [address] [id number] [place] [address]- 3890 August, [facility] [address] [id number] [place] [address]- 3568 August, [facility] [address] [id number] [place] [address]- 5652 August, [facility] [address] [id number] [place] [address]- 1273 August, [facility] [address] [id number] [place] [address]- 3514 August, [facility] [address] [id number] [place] [address]- 3584 August, [facility] [address] [id number] [place] [address]- 3021 August, [facility] [address] [id number] [place] [address]- 0584 Jul, [facility] [address] [id number] [place] [address]- 4758 Jun, [facility] [address] [id number] [place] [address]- 8377 16 Jun, 2011 [facility] [address] [id number] [place] [address]- 3623 Jun, [facility] [address] [id number] [place] [address]- 2546 Jun, [facility] [address] [id number] [place] [address]- 0867 05 Jun, 2011 [facility] [address] [id number] [place] [address]- 4106 04 Jun, 2011 [facility] [place] [facility] [address] [id number] [place] [address]- 0166 Jun, [facility] [place] [facility] [address] [id number] [place] [address]- 5136 Jun, [facility] [place] [facility] [address] [id number] [place] [address]- 5626 27 May, 2011 [facility] [place] [facility] [address] [id number] [place] [address]- 7976 21 May, 2011 [facility] [place] [facility] [address] [id number] [place] [address]- 0256 20 May, 2011 [facility] [place] [facility] [address] [id number] [place] [address]- 8356 19 May, 2011 [facility] [place] [facility] [address] [id number] [place] [address]- 5216 17 May, 2011 [facility] [place] [facility] [address] [id number] [place] [address]- 8286 16 May, 2011 [facility] [place] [facility] [address] [id number] [place] [address]- 5186 14 May, 2011 [facility] [place] [facility] [address] [id number] [place] [address]- 2136 Apr, [facility] [place] [facility] [address] [id number] [place] [address]- 8026 16 Apr, 2011 [facility] [place] [facility] [address] [id number] [place] [address]- 5896 13 Apr, 2011 [facility] [place] [facility] [address] [facility] [id number] [place] [address]- 8696 11 Apr, 2011 [facility] [place] [facility] [address] [facility] [id number] [place] [address]- 5736 10 Apr, 2011 [facility] [place] [facility] [address] [id number] [place] [address]- 5920 Apr, [facility] [address] [id number] [place] [address]- 5538 Apr, [facility] [place] [facility] [address] [id number] [place] [address]- 7371 Apr, [facility] [address] [id number] [place] [address]- 6310 Mar, [facility] [place] [facility] [address] [id number] [place] [address]- 0267 Mar, [facility] [address] [id number] [place] [address]- 9878 Feb, [facility] [place] [facility] [address] [id number] [place] [address]- 7749 Feb, [facility] [address] [id number] [place] [address]- 8094 Feb, [facility] [address] [id number] [place] [address]- 4155 Feb, [facility] [place] [facility] [address] [id number] [place] [address]- 7966 Feb, [facility] [address] [id number] [place] [address]- 4023 24 Jan, 2011 [facility] [place] [facility] [address] [id number] [place] [address]- 7490 Nov, [facility] [place] [facility] [address] [id number] [place] [address]- 6948 Sep, [facility] [place] [facility] [address] [id number] [place] [address] August, [facility] [place] [facility] [address] [id number] [place] [address] Jun, [facility] [place] [facility] [address] [id number] [place] [address] 14 May, 2010 [facility] [place] [facility] [address] [id number] [place] [address] 18 Apr, 2010 [facility] [place] [facility] [address] [id number] [place] [address] 22 Mar, 2010 [facility] [place] [facility] [address] [id number] [place] [address] 14 Mar, 2010 [facility] [place] [facility] [address] [id number] [place] [address] 14 Mar, 2010 [facility] [place] [facility] [address] [id number] [place] [address] Feb, [facility] [place] [facility] [address] [id number] [place] [address] Feb, [facility] [place] [facility] [address] [id number] [place] [address] Jan, [facility] [place] [facility] [address] [id number], [place] [address] Jan, [facility] [place] [facility] [address] [id number] [place] [address] Jan, [facility] [place] [facility] [address] [id number], [place] [address] Oct, [facility] [place] [facility] [address] [id number], [place] [address] Oct, [facility] [place] [facility] [address] [id number], [place] [address] 15 Apr, 2009 [facility] [place] [facility] [address] [id number] [place] [address] Mar, [facility] [place] [facility] [address] [id number][place] [address] Mar, [facility] [place] [facility] [address] [id number], [place] [address] Jan, [facility] [place] [facility] [address] [id number], [place] [address] Dec, IMMUNIZATIONS No Known Immunizations SOCIAL HISTORY Never Assessed REASON FOR VISIT FILLING PLAN OF CARE Activity Details Follow Up prn Reason:ALISA VITAL SIGNS Blood pressure systolic 148 mmHg 2017-07-01 Blood pressure diastolic 84 mmHg 2017-07-01 MEDICATIONS Medication Instructions Dosage Frequency Start Date End Date Duration Status Pen [place] 32G X 4 MM subcutaneously 2 times a day use to Inject insulin 12h Feb, 90 days Active Levemir Flexpen 100 UNIT/ML Subcutaneous 2 times a day Inject 25 units in AM and PM 12h Active Diclofenac Sodium 50MG DR Orally Three times a day 1 tablet 8h Active Atenolol 100MG 1 tablet 24h 30 Active Metformin HCl 1000 MG Orally Twice a day 1 tablet with meals 12h Feb, 30 day(s) Active Albuterol Sulfate 90 mcg/actuation 2 puffs by Inhalation route every 4-6 hours as neededPRNcough or wheezing August, Active NyQuil Not-Taking Zofran ODT 8 mg 1 tablet by Oral route every 8 hours PRN nausea or vomiting Jun, Not-Taking Amitriptyline HCl 150 MG Orally Once a day 1 tablet 24h Feb, Active Celexa 20 mg Orally Once a day 1 tablet 24h Active Hydrochlorothiazide 50MG 1 tablet 24h 30 Active ProAir HFA 108 (90 Base) MCG/ACT Inhalation every 4 hrs 2 puffs as needed 4h 07 May, 2016 Active Percocet 5-325 MG Orally every 6 hrs prn 1 tablet as needed May, Active Flonase 50 MCG/ACT Nasally Once a day 1 spray in each nostril 24h 25 Feb, 2015 Active Vytorin 10-40 MG Orally Once a day 1 tablet 24h Active Promethazine-Codeine 6.25-10 MG/5ML Orally prior to bed 5 ml as needed Jun, Jun, 10 days Active Mucinex 600 MG Orally every 12 hrs 1 tablet as needed 12h 10 May, 2016 Active Gabapentin 300MG Orally 3 times a day 1 capsule by Oral route 3 times per day 8h Active RESULTS No Results PROCEDURES Procedure Date Ordered Result Body Site Dental no charge July 01, 2017 INSTRUCTIONS MEDICATIONS ADMINISTERED No Known [...]
--- OUTSIDE RECORDS SUMMARY | 2018-02-13 03:56 | XMS REPORT ---
Author Author NADIYA CARMONA Organization [facility] Address [address] [place] [address] Care Team Providers Care Customer Consultant Name Role Phone NADIYA CARMONA Unavailable PROBLEMS Type Condition ICD9-CM Code MCS30-QM Code Onset Dates Condition Status SNOMED Code Problem Asthma J45.909 Active 509268817 Problem Reactive depression F32.9 Active 25163457 Problem Secondary hypertension I15.9 Active 09093969 Problem Open bite of left hand, initial encounter S61.452A Active 696357942 Problem Bitten by cat, initial encounter W55.01XA Active 138170753 Problem Moderate persistent asthma with exacerbation J45.41 Active 849222045 Problem Bronchitis J40 Active 50352825 Problem Simple chronic bronchitis J41.0 Active 13091752 Problem Recurrent major depressive disorder, in full remission F33.42 Active 705116415 Problem Renal failure N19 Active 08271354 Problem Joint pain of left hip on movement M25.552 Active 383816302 Problem Hypercholesterolemia E78.00 Active 86986444 Problem Environmental allergies Z91.09 Active 129673617 Problem PVD (peripheral vascular disease) I73.9 Active 200745572 Problem Diabetes mellitus E11.9 Active 39787333 Problem Proteinuria R80.9 Active 62167437 Problem Insomnia G47.00 Active 732757496 Problem Neuropathy G62.9 Active 218608663 Problem GERD (gastroesophageal reflux disease) K21.9 Active 755896040 ALLERGIES Substance Reaction Event Type Date Status Stadol Unknown Drug Allergy Jun, Active Glucotrol Unknown Drug Allergy Jun, Active ENCOUNTERS Encounter Location Date Diagnosis [facility] [address] [facility] [id number] [address] Oct, Dermatitis due to plants, including poison chris, sumac, and oak L25.5 [facility] [address] [facility] [id number], [place] [address] Sep, Diabetes mellitus E11.9 and Medication management Z79.899 [place] [address] [address] Sep, [place] [address] [address] August, Neuropathy G62.9 [facility] [place] [address] [address] August, Open bite of left hand, initial encounter S61.452A ; Encounter for immunization Z23 and Bitten by cat, initial encounter W55.01XA [place] [address] 25[address]- 280[address] 05 Jul, 2017 Environmental allergies Z91.09 [place] [address] [address]39- 3727 Jun, [place] [address] 57472- 5[address] Jun, Simple chronic bronchitis J41.0 ; PVD (peripheral vascular disease) I73.9 and Recurrent major depressive disorder, in full remission F33.42 [facility] [address] [id number] Jun, Dental examination Z01.20 [facility] [place] [address] [address] Jun, Moderate persistent asthma with exacerbation J45.41 [place] [address] 71861- 57[address] May, Neuropathy G62.9 and Diabetes mellitus E11.9 [place] [address] 6[address]14- [address] Apr, [facility] [address] [address] Apr, Cough R05 [place] [address] 75705- 8[address] Feb, [facility] [address] [place] [id number] [place] [address] 24110- 1383 Feb, [facility] [address] [place] [id number] [place] [address] 85605- 1501 Feb, Diabetes mellitus E11.9 ; Neuropathy G62.9 ; Joint pain of left hip on movement M25.552 and Encounter for immunization Z23 [facility] [address] [place] [id number] [place] [address] 30436- 6659 Feb, [facility] [address] 84771- 3597 Feb, Diabetes mellitus E11.9 [facility] [address] 20164- 3324 Feb, [facility] [address] 59414- 7569 Jan, [facility] [address] [place] [id number] [place] [address] 14459- 2148 Jan, Secondary hypertension I15.9 [facility] [address] 78731- 4781 Dec, Diabetes mellitus E11.9 [facility] [address] [place] [id number] [place] [id number] Nov, Encounter for dental examination Z01.20 [facility] [address] [place] [id number] [place] [address]27[address] Oct, Allergic contact dermatitis due to plants, except food L23.7 [facility] [address] 25336- 7722 Oct, [facility] [address] 64118- 5425 Oct, Diabetes mellitus E11.9 ; PVD (peripheral vascular disease) I73.9 ; Neuropathy G62.9 ; GERD (gastroesophageal reflux disease) K21.9 ; Insomnia G47.00 ; Environmental allergies Z91.09 ; Secondary hypertension I15.9 ; Reactive depression F32.9 ; Hypercholesterolemia E78.00 and Joint pain of left hip on movement M25.552 [facility] [address] [place] [id number] [place] [address] 02828- 7390 Sep, Diabetes mellitus E11.9 [facility] [address] [place] [id number] [place] [address] 48467- 9653 Sep, Diabetes mellitus E11.9 [facility] [address] 85288- 6586 Sep, Diabetes mellitus E11.9 [place] [address] 71302- 0570 Sep, Neuropathy G62.9 [facility] [address] 37851- 7999 August, [facility] [address] 88298- 1719 Jul, [facility] [address] [place] [id number] [place] [address] 29344- 3288 Jun, [facility] [address] 61274- 6527 Jun, Diabetes mellitus E11.9 ; PVD (peripheral vascular disease) I73.9 ; Neuropathy G62.9 ; Joint pain of left hip on movement M25.552 ; Renal failure N19 ; Asthma J45.909 ; Reactive depression F32.9 ; Pure hypercholesterolemia, unspecified E78.00 and Insomnia G47.00 [facility] [address] [place] [id number] [place] [address] 76548- 7419 Jun, Joint pain of left hip on movement M25.552 and Diabetes mellitus E11.9 [facility] [address] [place] [id number] [place] [address] 03718- 2109 Jun, [facility] [address] [place] [id number] [place] [address] 80376 -3814 May, Cough R05 and Bronchitis J40 [facility] [address] [place] [id number] [place] [address] 23236- 1793 May, [facility] [address] [place] [id number] [place] [address] 50721- 3737 May, [facility] [address] [place] [id number] [place] [address] 98010- 4680 May, Asthma J45.909 and Bronchitis J40 [facility] [address] 50983- 3385 May, [facility] [address] 75123- 6144 May, Bronchitis J40 [facility] [address] [place] [id number] [place] [address] 17511- 6862 May, [facility] [address] [place] [id number] [place] [address] 72195- 6640 Apr, Diabetes mellitus E11.9 ; PVD (peripheral vascular disease) I73.9 ; GERD (gastroesophageal reflux disease) K21.9 ; Asthma J45.909 ; Insomnia G47.00 ; Environmental allergies Z91.09 ; Secondary hypertension I15.9 ; Joint pain of left hip on movement M25.552 ; Hypercholesterolemia E78.0 and Reactive depression F32.9 [facility] [address] [place] [id number] [place] [address] 61742- 6575 Mar, Diabetes mellitus E11.9 ; PVD (peripheral vascular disease) I73.9 and Hypercholesterolemia E78.0 [facility] [address] [place] [id number] [place] [address] 34622- 7607 Mar, Diabetes mellitus E11.9 and Hypercholesterolemia E78.0 [facility] [address] [place] [id number] [place] [address] 50139- 7732 Mar, [facility] [address] [place] [id number] [place] [address] 72897- 7656 Feb, [place] [id number] [address] Feb, [place] [address] [place] [id number] [place] [address] 71772- 2771 Feb, [place] [address] [place] [id number] [place] [address] 49098- 0256 Jan, Encounter for immunization Z23 [place] [address] 45439- 5866 Jan, [place] [address] [place] [id number] [place] [address] 39532- 8429 Dec, [place] [address] [place] [id number] [place] [address] 45941- 0734 Dec, Diabetes mellitus E11.9 ; PVD (peripheral vascular disease) I73.9 ; GERD (gastroesophageal reflux disease) K21.9 ; Insomnia G47.00 ; Joint pain of left hip on movement M25.552 ; Asthma J45.909 ; Environmental allergies Z91.09 ; Hypercholesterolemia E78.0 ; Essential hypertension I10 and Neuropathy G62.9 [place] [id number] [place] [address] 64048- 4134 Nov, [place] [address] [place] [id number] [place] [address] 92280- 1511 Nov, [place] [address] [place] [id number] [place] [address] 46037- 9985 Oct, PVD (peripheral vascular disease) I73.9 and Diabetes mellitus E11.9 [place] [id number] [place] [address] 89174- 9026 Sep, Diabetes mellitus E11.9 ; PVD (peripheral vascular disease) I73.9 ; Neuropathy G62.9 ; Joint pain of left hip on movement M25.552 ; GERD ( gastroesophageal reflux disease) K21.9 ; Asthma J45.909 ; Insomnia G47.00 ; Secondary hypertension I15.9 and Hypercholesteremia E78.0 [place] [address] [place] [id number] [place] [address] 00758- 9425 August, [facility] [address] [place] [id number] [place] [address] 28640- 1359 August, Neuropathy G62.9 [facility] [address] [place] [id number] [place] [address] 09641- 5931 August, Neuropathy G62.9 [facility] [address] [place] [id number] [place] [address] 46652- 6978 Jun, Diabetes mellitus E11.9 ; Joint pain of left hip on movement M25.552 ; PVD (peripheral vascular disease) I73.9 ; Neuropathy G62.9 ; GERD (gastroesophageal reflux disease) K21.9 ; Asthma J45.909 ; Insomnia G47.00 ; Environmental allergies Z91.09 ; HTN (hypertension) I10 and Hypercholesteremia E78.0 [facility] [address] [place] [id number] [place] [address] 32728- 3085 Jun, [facility] [address] [place] [id number] [place] [address] 06422- 8255 Jun, [facility] [address] [place] [id number] [place] [address] 21776- 4082 Jun, [facility] [address] [place] [id number] [place] [address] 16245- 1614 Apr, [facility] [address] [place] [id number] [place] [address] 65783- 0698 Apr, [facility] [address] [place] [id number] [place] [address] 71185- 5317 Apr, Sinusitis J32.9 [facility] [address] [place] [id number] [place] [address] 39102- 1523 Apr, Neuropathy G62.9 [facility] [address] [place] [id number] [place] [address] 48470- 7093 Mar, [facility] [address] [place] [id number] [place] [address] 98239- 8055 Mar, [facility] [address] [place] [id number] [place] [address] 11323- 7427 Mar, Diabetes mellitus E11.9 ; PVD (peripheral vascular disease) I73.9 ; Neuropathy G62.9 ; GERD (gastroesophageal reflux disease) K21.9 ; Renal failure N19 ; Asthma J45.909 ; Insomnia G47.00 ; Environmental allergies Z91.09 ; Sinusitis J32.9 ; Cough R05 ; Edema R60.9 ; HTN (hypertension) I10 and Hypercholesterolemia E78.0 [facility] [address] [place] [id number] [place] [address] 67662 -0092 Mar, Dysuria R30.0 ; Vomiting, unspecified R11.10 ; Benign essential hypertension I10 and Dizziness R42 [facility] [address] [place] [id number] [place] [address] 17317- 9898 Mar, [facility] [address] 39873- 1122 Mar, [facility] [address] [place] [id number] [place] [address] 54355- 4987 Feb, [facility] [address] 29502- 1343 Feb, [facility] [address] [place] [id number] [place] [address] 32004- 8955 Feb, [facility] [address] 61283- 4076 Feb, [facility] [address] [place] [id number] [place] [address] 60713- 0152 Feb, Joint pain of left hip on movement M25.552 ; Lumbago M54.5 and UTI (urinary tract infection) N39.0 [facility] [address] [place] [id number] [place] [address] 54673- 8130 Feb, [facility] [address] 56824- 5978 Feb, [facility] [address] [address]- 6469 Jan, [facility] [id number] [place] [address] 25723- 5950 Jan, [facility] [address] [place] [id number] [place] [address] 66876- 3976 Jan, [facility] [address] [place] [id number] [place] [address] 38620- 5476 Jan, [facility] [address] [place] [id number] [place] [address] 34366- 5523 Jan, 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 [facility] [address] [place] [id number] [place] [address] 62644- 0192 30 Dec, 2014 Hypertension 401.9 and Diabetes 250.00 [facility] [address] [place] [id number] [place] [address] 87780- 6531 Dec, Diabetes 250.00 ; Influenza vaccine administered V04.81 ; Unspecified peripheral vascular disease 443.9 ; Issue of repeat prescriptions V68.1 ; Unspecified hereditary and idiopathic peripheral neuropathy 356.9 ; Insomnia, unspecified 780.52 ; Hypercholesteremia 272.0 ; Pain in joint, site unspecified 719.40 ; Dizziness 780.4 and PCV-13 (PREVNAR) DX V03.82 [facility] [address] [place] [address] 31461- 3504 Dec, [facility] [address] [place] [id number] [place] [address] 91188- 9180 Dec, [facility] [address] [place] [id number] [place] [address] 41257- 6445 Dec, [facility] [id number] [place] [address] 80058- 3151 Dec, [facility] [id number] [place] [address] 26541- 0611 Dec, [facility] [address], [place] [address]- 3001 Dec, [facility] [address] [place] [id number] [place] [address] 19601- 8525 Nov, [facility] [address] [place] [id number] [place] [address] 52003- 2867 Nov, Environmental allergies V15.09 ; Sacroiliitis, not elsewhere classified 720.2 and Cough 786.2 [facility] [address] [id number] [address]- 6278 Oct, [facility] [address] [place] [id number] [place] [address] 23127- 1573 Oct, [facility] [address] [place] [id number] [place] [address] 23217- 6175 Oct, [place] [address] [place] [id number] [place] [address] 43894- 7707 Sep, [facility] [address] [place] [address] 75594- 5420 Sep, [facility] [address] [place] [id number] [place] [address] 50770- 6450 Sep, Dysuria 788.1 and Diabetes with other specified manifestations, type II or unspecified type, not stated as uncontrolled 250.80 [place] [address] [id number] [address]- 1092 Sep, [facility] [address] [place] [id number] [place] [address] 35091- 5694 Sep, Diabetes with other specified manifestations, type II or unspecified type, not stated as uncontrolled 250.80 [facility] [address] [place] [address] [id number]- 9556 Sep, DM w/o complication type II 250.00 ; Unspecified peripheral vascular disease 443.9 ; Pain in joint, pelvic region and thigh 719.45 ; Asthma , unspecified, unspecified status 493.90 ; Hypercholesteremia 272.0 ; Fatigue 780.79 ; UTI (lower urinary tract infection) 599.0 and Essential hypertension 401.9 [facility] [address], [place] [address]- 4684 Sep, [facility] [address], [place] [address]- 8394 Sep, [facility] [address] [place] [id number] [place] [address] 05711- 4579 Sep, [facility] [address] [place] [id number] [place] [address] 698049- 0069 August, [facility] [address] [place] [id number] [place] [address] 80644- 5192 August, [facility] [address] [place] [id number] [place] [address] 630875- 4944 August, Diabetes with other specified manifestations, type II or unspecified type, not stated as uncontrolled 250.80 [facility] [address] [address]- 9282 Jul, Peripheral vascular disease 443.9 [facility] [address], [place] [address]- 1891 Jul, [facility] [address], [place] [address]- 8135 Jul, [facility] [address], [place] [address]- 7302 Jun, [facility] [address], [place] [address]- 9921 Jun, [facility] [address] 2310 Jun, [facility] [address], [place] [address]- 6679 Jun, [facility] [address], [place] [address]- 6657 Jun, [facility] [place] [facility] [address] [id number] [place] [address]- 6999 Jun, [facility] [place] [facility] [address] [id number] [place] [address]- 3769 Jun, [facility] [place] [facility] [address] [id number] [place] [address]- 8360 Jun, [facility] [place] [facility] [address] [id number] [place] [address]- 7057 Jun, [facility] [place] [facility] [address] [id number] [place] [address]- 9065 May, [facility] [place] [facility] [address] [id number] [place] [address]- 6292 May, 2014 [facility] [place] [facility] [address] [facility] [id number] [place] [address]- 9136 24 May, 2014 [facility] [place] [facility] [address] [facility] [id number] [place] [address]- 0275 May, 2014 [facility] [place] [facility] [address] [facility] [id number] [place] [address]- 1167 May, 2014 [facility] [place] [facility] [address] [facility] [id number] [place] [address]- 7544 May, 2014 [facility] [place] [facility] [address] [facility] [id number] [place] [address]- 5816 May, 2014 [facility] [place] [facility] [address] [facility] [id number] [place] [address]- 3829 13 May, 2014 [facility] [place] [facility] [address] [facility] [id number] [place] [address]- 0179 13 May, 2014 [facility] [place] [facility] [address] [facility] [id number] [place] [address]- 1081 12 May, 2014 [facility] [place] [facility] [address] [facility] [id number] [place] [address]- 9397 May, 2014 [facility] [place] [facility] [address] [id number] [place] [address]- 5183 May, [facility] [place] [facility] [address] [id number] [place] [address]- 3908 May, [facility] [place] [facility] [address] [id number] [place] [address]- 9777 Apr, [facility] [place] [facility] [address] [id number] [place] [address]- 7115 Apr, [facility] [place] [facility] [address] [id number] [place] [address]- 7645 Apr, [facility] [place] [facility] [address] [id number] [place] [address]- 9200 Apr, [facility] [place] [facility] [address] [id number] [place] [address]- 5605 Apr, [facility] [place] [facility] [address] [id number] [place] [address]- 9802 Apr, [facility] [place] [facility] [address] [id number] [place] [address]- 9219 Apr, [facility] [place] [facility] [address] [id number] [place] [address]- 4659 Apr, [facility] [place] [facility] [address] [id number] [place] [address]- 0777 Mar, [facility] [place] [facility] [address] [id number] [place] [address]- 4819 Mar, [facility] [place] [facility] [address] [id number] [place] [address]- 1921 Mar, [facility] [place] [facility] [address] [id number] [place] [address] Mar, [facility] [place] [facility] [address] [id number] [place] [address] 17 Mar, 2014 [facility] [place] [facility] [address] [id number] [address] Mar, [facility] [place] [facility] [address] [id number] [place] [address] Mar, [facility] [place] [facility] [address] [id number] [place] [address] Mar, [facility] [place] [facility] [address] [facility] [id number] [id number] [address] Mar, [facility] [place] [facility] [address] [id number] [place] [address] Mar, [facility] [place] [facility] [address] [id number] [place] [address] 2011 Mar, [facility] [place] [facility] [address] [id number] [place] [address] Mar, [facility] [place] [facility] [address] [id number] [place] [address] Mar, [facility] [place] [facility] [address] [id number] [place] [address] Mar, [facility] [place] [facility] [address] [id number] [place] [address] Feb, [facility] [place] [facility] [address] [id number] [place] [address] Feb, [facility] [place] [facility] [address] [id number] [place] [address] Feb, [facility] [place] [facility] [address] [id number], [place] [address] Feb, [facility] [place] [facility] [address] [id number] [place] [address] Feb, [facility] [place] [facility] [address] [id number] [place] [address] Feb, [facility] [place] [facility] [address] [id number] [place] [address] Feb, [facility] [place] [facility] [address] [id number] [place] [address] Feb, [facility] [place] [facility] [address] [id number] [place] [address] Feb, [facility] [place] [facility] [address] [id number] [place] [address] Feb, [facility] [place] [facility] [address] [id number] [place] [address] Feb, [facility] [place] [facility] [address] [id number] [place] [address] Feb, [facility] [place] [facility] [address] [id number] [place] [address] Feb, [facility] [place] [facility] [address] [id number] [place] [address] Feb, [facility] [place] [facility] [address] [id number] [place] [address] Feb, [facility] [place] [facility] [address] [id number] [place] [address]- 1517 Feb, [facility] [place] [facility] [address] [id number] [place] [address] Jan, [facility] [place] [facility] [address] [id number] [place] [address] 9606 Jan, [facility] [place] [facility] [address] [id number] [place] [address] 9[address] Jan, [facility] [place] [facility] [address] [id number] [place] [address] 6935 Jan, [facility] [place] [facility] [address] [id number] [place] [address] 4268 Jan, [facility] [place] [facility] [address] [id number] [place] [address] 1328 Jan, [facility] [place] [facility] [address] [id number] [place] [address]- 2411 Jan, [facility] [place] [facility] [address] [id number] [place] [address] 4150 Jan, [facility] [place] [facility] [address] [id number] [place] [address] 8676 Dec, [facility] [place] [facility] [address] [id number] [place] [address] 1280 Dec, [facility] [place] [facility] [address] [id number] [place] [address] 4758 Nov, [facility] [place] [facility] [address] [id number] [place] [address]- 2970 Nov, [facility] [place] [facility] [address] [id number] [place] [address]- 1874 Nov, [facility] [place] [facility] [address] [id number] [place] [address]- 8672 Nov, [facility] [place] [facility] [address] [id number] [place] [address]- 6244 Nov, [facility] [place] [facility] [address] [id number] [place] [address]- 7724 Nov, [facility] [place] [facility] [address] [id number] [place] [address]- 6616 Oct, [facility] [place] [facility] [address] [id number] [place] [address]- 4847 Oct, [facility] [place] [facility] [address] [id number] [place] [address]- 5271 Oct, [facility] [place] [facility] [address] [id number] [place] [address]- 1419 Oct, [facility] [place] [facility] [address] [id number] [place] [address]- 0810 Sep, [facility] [place] [facility] [address] [id number] [place] [address]- 8778 Sep, [facility] [place] [facility] [address] [id number] [place] [address]- 0947 Sep, [facility] [place] [facility] [address] [id number] [place] [address]- 9219 Sep, [facility] [place] [facility] [address] [id number] [place] [address]- 7782 Sep, [facility] [place] [facility] [address] [id number] [place] [address]- 4892 Sep, [facility] [place] [facility] [address] [id number] [place] [address]- 7642 August, [facility] [place] [facility] [address] [id number] [place] [address]- 0469 August, [facility] [place] [facility] [address] [id number] [place] [address]- 1656 August, [facility] [place] [facility] [address] [id number] [place] [address]- 9334 August, [facility] [place] [facility] [address] [id number] [place] [address]- 3792 August, [facility] [place] [facility] [address] [id number] [place] [address]- 7426 August, [facility] [place] [facility] [address] [id number] [place] [address]- 6076 August, [facility] [place] [facility] [address] [id number] [place] [address]- 4230 August, [facility] [place] [facility] [address] [id number] [place] [address]- 3595 August, [facility] [place] [facility] [address] [id number] [place] [address]- 2231 August, [facility] [place] [facility] [address] [id number] [place] [address]- 4855 August, [facility] [place] [facility] [address] [id number] [place] [address]- 5585 August, [facility] [place] [facility] [address] [id number] [place] [address]- 6543 Jul, [facility] [place] [facility] [address] [id number] [place] [address]- 5889 Jul, [facility] [place] [facility] [address] [id number] [place] [address]- 4408 Jul, [facility] [place] [facility] [address] [id number] [place] [address]- 1624 Jul, [facility] [place] [facility] [address] [id number] [place] [address]- 3695 Jul, [facility] [place] [facility] [address] [id number] [place] [address]- 2531 Jul, [facility] [place] [facility] [address] [id number] [place] [address]- 6309 Jul, [facility] [place] [facility] [address] [id number] [place] [address]- 0923 Jul, [facility] [place] [facility] [address] [id number] [place] [address]- 2571 Jul, [facility] [place] [facility] [address] [id number] [place] [address]- 5601 Jul, [facility] [place] [facility] [address] [id number] [place] [address]- 9468 Jul, [facility] [place] [facility] [address] [id number] [place] [address]- 5104 Jun, [facility] [place] [facility] [address] [id number] [place] [address]- 8194 31 Jun, 2013 [facility] [place] [facility] [address] [id number] [place] [address]- 7824 Jun, [facility] [place] [facility] [address] [id number] [place] [address]- 0037 Jun, [facility] [place] [facility] [address] [id number] [place] [address]- 9191 Jun, [facility] [place] [facility] [address] [id number] [place] [address]- 4870 Jun, [facility] [place] [facility] [address] [id number] [place] [address]- 5916 Jun, [facility] [place] [facility] [address] [id number] [place] [address]- 0890 Jun, [facility] [place] [facility] [address] [id number] [place] [address]- 1859 Jun, [facility] [place] [facility] [address] [id number] [place] [address]- 5372 May, [facility] [place] [facility] [address] [id number] [place] [address]- 0228 May, [facility] [place] [facility] [address] [id number] [place] [address]- 2009 May, [facility] [place] [facility] [address] [id number] [place] [address]- 8182 Apr, [facility] [place] [facility] [address] [id number] [place] [address]- 2372 Apr, [facility] [place] [facility] [address] [id number] [place] [address]- 7210 Apr, [facility] [place] [facility] [address] [id number] [place] [address]- 3447 Apr, [facility] [place] [facility] [address] [id number] [place] [address]- 0751 Apr, [facility] [place] [facility] [address] [id number] [place] [address]- 3551 Apr, [facility] [place] [facility] [address] [id number] [place] [address]- 2627 Apr, [facility] [place] [facility] [address] [id number] [place] [address]- 9562 Apr, [facility] [place] [facility] [address] [id number] [place] [address]- 9952 05 Mar, 2013 [facility] [address] [id number] [place] [address]- 1562 05 Mar, 2012 [facility] [place] [facility] [address] [id number] [place] [address]- 6432 Feb, [facility] [place] [facility] [address] [id number] [place] [address]- 3017 Feb, [facility] [place] [facility] [address] [id number] [place] [address]- 0088 Jan, [facility] [place] [facility] [address] [id number] [place] 31 Jan, 2013 [facility] [place] [facility] [address] [id number] [place] [address]- 5886 Jan, [facility] [place] [facility] [address] [id number] [place] [address]- 8585 Jan, [facility] [address] [id number] [place] [address]- 9294 24 Jan, 2013 [facility] [place] [facility] [address] [id number] [place] [address]- 4628 24 Jan, 2013 [facility] [place] [facility] [address] [id number] [place] [address]- 0661 Jan, [facility] [place] [facility] [address] [id number] [place] [address]- 9062 21 Jan, 2013 [facility] [place] [facility] [address] [id number] [place] [address]- 1514 17 Jan, 2013 [facility] [place] [facility] [address] [id number] [place] 17 Jan, 2013 [facility] [place] [facility] [address] [id number] [place] [address]- 1955 14 Jan, 2013 [facility] [place] [facility] [address] [id number] [place] [address]- 8678 14 Jan, 2013 [facility] [place] [facility] [address] [id number] [place] [address]- 8073 10 Jan, 2012 [facility] [place] [facility] [address] [id number] [place] [address]- 2515 10 Jan, 2012 [facility] [place] [facility] [address] [id number] [place] [address]- 3484 10 Jan, 2012 [facility] [place] [facility] [address] [id number] [place] [address]- 7948 10 Jan, 2012 [facility] [place] [facility] [address] [id number] [place] [address]- 0437 09 Jan, 2012 [facility] [place] [facility] [address] [id number] [place] [address]- 4409 09 Jan, 2012 [facility] [place] [facility] [address] [id number] [place] [address]- 5748 08 Jan, 2012 [facility] [place] [facility] [address] [id number] [place] [address]- 5652 07 Jan, 2013 [facility] [place] [facility] [address] [id number] [place] [address]- 5145 Jan, [facility] [place] [facility] [address] [id number], [place] [address]- 4752 04 Jan, 2013 [facility] [place] [facility] [address] [id number], [place] [address]- 0050 04 Jan, 2013 [facility] [place] [facility] [address] [id number], [place] [address]- 7250 17 Dec, 2012 [facility] [place] [facility] [address] [id number] [place] [address]- 6920 16 Dec, 2012 [facility] [place] [facility] [address] [id number], [place] [address]- 9288 Nov, [facility] [place] [facility] [address] [id number], [place] [address]- 4544 08 Oct, 2012 [facility] [place] [facility] [address] [id number], [place] [address]- 1205 Oct, [facility] [address] [id number] [place] [address]- 7907 Oct, [facility] [place] [facility] [address] [id number] [place] [address]- 6581 Oct, [facility] [place] [facility] [address] [id number] [place] [address]- 9868 Oct, [facility] [place] [facility] [address] [id number] [place] [address]- 3474 Oct, [facility] [place] [facility] [address] [id number] [place] [address]- 9288 Sep, [facility] [place] [facility] [address] [id number] [place] [address]- 9751 Sep, [facility] [address] [id number] [place] [address]- 7528 Sep, [facility] [place] [facility] [address] [id number] [place] [address]- 2396 Jul, [facility] [place] [facility] [address] [id number] [place] [address]- 2234 Jul, [facility] [place] [facility] [address] [id number] [place] [address]- 6259 Jul, [facility] [place] [facility] [address] [id number] [place] [address]- 1420 Jun, [facility] [place] [facility] [address] [id number] [place] [address]- 4377 Jun, [facility] [place] [facility] [address] [id number] [place] [address]- 5872 Jun, [facility] [place] [facility] [address] [id number] [place] Jun, [facility] [place] [facility] [address] [id number] [place] Jun, [facility] [place] [facility] [address] [id number] [place] [address]- 1056 Jun, [facility] [address] [id number] [place] [address]- 4636 May, [facility] [place] [facility] [address] [id number] [place] [address]- 2546 May, [facility] [place] [facility] [address] [id number] [place] [address]- 7916 Apr, [facility] [place] [facility] [address] [id number] [place] [address] 2545 Apr, [facility] [place] [facility] [address] [id number] [place] [address]- 8636 Apr, [facility] [place] [facility] [address] [id number] [place] [address]- 0930 Apr, [facility] [place] [facility] [address] [id number] [place] [address]- 6549 Apr, [facility] [address] [id number] [place] [address]- 7024 31 Mar, 2012 [facility] [place] [facility] [address] [id number] [place] [address]- 9727 31 Mar, 2012 [facility] [address] [id number] [place] [address]- 9937 27 Mar, 2012 [facility] [place] [facility] [address] [id number] [place] [address] 254 27 Mar, 2012 [facility] [place] [facility] [address] [id number] [place] [address] 2546 14 Mar, 2012 [facility] [place] [facility] [address] [id number] [place] [address] 2546 14 Mar, 2012 [facility] [place] [facility] [address] [id number] [place] [address] 2546 10 Mar, 2012 [facility] [place] [facility] [address] [id number] [place] [address]- 8707 Mar, [facility] [place] [facility] [address] [id number] [place] [address]- 7274 Mar, [facility] [place] [facility] [address] [id number] [place] [address]- 6460 Mar, [facility] [place] [facility] [address] [facility] [id number] [place] [address]- 9317 Feb, [facility] [place] [facility] [address] [id number] [place] [address]- 2553 Feb, [facility] [place] [facility] [address] [id number] [place] [address]- 9650 Feb, [facility] [place] [facility] [address] [id number] [place] [address]- 5407 Feb, [facility] [place] [facility] [address] [facility] [id number] [place] [address]- 2980 Feb, [facility] [place] [facility] [address] [id number], [place] [address]- 1761 Feb, [facility] [place] [facility] [address] [id number] [place] [address]- 8139 Feb, [facility] [place] [facility] [address] [facility] [id number], [place] [address]- 9935 Feb, [facility] [place] [facility] [address] [facility] [id number], [place] [address]- 4134 Feb, [facility] [place] [facility] [address] [id number], [place] [address]- 5973 Feb, [facility] [place] [facility] [address] [id number], [place] [address]- 8319 Jan, [facility] [place] [facility] [address] [facility] [id number], [place] [address]- 0070 Jan, [facility] [place] [facility] [address] [facility] [id number], [place] [address]- 9923 Jan, [facility] [place] [facility] [address] [id number] [place] [address]- 9008 01 Jan, 2012 [facility] [place] [facility] [address] [id number] [place] [address]- 3096 28 Sep, 2011 [facility] [place] [facility] [address] [id number] [place] [address] 2546 25 Sep, 2011 [facility] [place] [facility] [address] [id number] [place] [address] 2546 18 Sep, 2011 [facility] [place] [facility] [address] [id number] [place] [address] 2546 18 Sep, 2011 [facility] [place] [facility] [address] [id number] [place] [address]- 1216 17 Sep, 2011 [facility] [place] [facility] [address] [id number] [place] [address]- 4696 14 Sep, 2011 [facility] [place] [facility] [address] [id number] [place] [address]- 2439 13 Dec, 2011 [facility] [place] [facility] [address] [id number] [place] [address]- 8795 13 Dec, 2011 [facility] [place] [facility] [address] [id number] [place] [address]- 5781 06 Dec, 2011 [facility] [place] [facility] [address] [id number] [place] [address]- 0986 31 Nov, 2011 [facility] [place] [facility] [address] [id number] [place] [address] 2544 30 Nov, 2011 [facility] [place] [facility] [address] [id number] [place] [address]- 2541 21 Nov, 2011 [facility] [place] [facility] [address] [id number] [place] [address]- 4045 09 Nov, 2011 [facility] [place] [facility] [address] [id number] [place] [address]- 2546 26 Sep, 2011 [facility] [place] [facility] [address] [id number] [place] [address]- 6504 Sep, [facility] [place] [facility] [address] [id number] [place] [address]- 6154 Sep, [facility] [address] [id number] [place] [address]- 8530 August, [facility] [address] [id number] [place] [address]- 0135 August, [facility] [address] [id number] [place] [address]- 5166 August, [facility] [address] [id number] [place] [address]- 9749 August, [facility] [address] [id number] [place] [address]- 7202 August, [facility] [address] [id number] [place] [address]- 6475 August, [facility] [address] [id number] [place] [address]- 2332 August, [facility] [address] [id number] [place] [address]- 3329 August, [facility] [address] [id number] [place] [address]- 2033 August, [facility] [address] [id number] [place] [address]- 7723 Jul, [facility] [address] [id number] [place] [address]- 4415 Jun, [facility] [place] [facility] [address] [id number] [place] [address]- 8843 16 Jun, 2011 [facility] [place] [facility] [address] [id number] [place] [address]- 6021 Jun, [facility] [place] [facility] [address] [id number] [place] [address]- 4257 Jun, [facility] [place] [facility] [address] [id number] [place] [address]- 4976 05 Jun, 2011 [facility] [address] [id number] [place] [address]- 0476 Jun, [facility] [place] [facility] [address] [id number] [place] [address] Jun, [facility] [address] [facility] [id number] [place] [address] Jun, [facility] [address] [id number] [place] [address] 27 May, 2011 [facility] [address] [id number] [place] [address] May, [facility] [address] [id number] [place] [address] 20 May, 2011 [facility] [address] [facility] [id number] [place] [address] 19 May, 2011 [facility] [place] [facility] [address] [id number] [place] [address] 17 May, 2011 [facility] [address] [facility] [id number] [place] [address] 16 May, 2011 [facility] [address] [facility] [id number] [place] [address] 14 May, 2011 [facility] [address] [facility] [id number] [place] [address] Apr, [facility] [place] [facility] [address] [id number] [place] [address] 16 Apr, 2011 [facility] [place] [facility] [address] [id number] [place] [address] 13 Apr, 2011 [facility] [place] [facility] [address] [facility] [id number] [place] [address] 11 Apr, 2011 [facility] [place] [facility] [address] [facility] [id number], [place] [address] 10 Apr, 2011 [facility] [place] [facility] [address] [id number] [place] [address] Apr, [facility] [place] [facility] [address] [id number] [place] [address] Apr, [facility] [place] [facility] [address] [id number] [place] [address] Apr, [facility] [place] [facility] [address] [id number] [place] [address] Mar, [facility] [place] [facility] [address] [id number] [place] [address] Mar, [facility] [place] [facility] [address] [id number] [place] [address] Feb, [facility] [place] [facility] [address] [id number] [place] [address] Feb, [facility] [place] [facility] [address] [id number] [place] [address] Feb, [facility] [place] [facility] [address] [id number] [place] [address] Feb, [facility] [place] [facility] [address] [id number] [place] [address] Feb, [facility] [place] [facility] [address] [id number] [place] [address] Jan, [facility] [place] [facility] [address] [id number] [place] [address] Nov, [facility] [place] [facility] [address] [id number] [place] [address] Sep, [facility] [place] [facility] [address] [id number] [place] [address] August, [facility] [place] [facility] [address] [id number] [place] [address] Jun, [facility] [place] [facility] [address] [id number] [place] [address] 14 May, 2010 [facility] [place] [facility] [address] [id number] [place] [address] 18 Apr, 2010 [facility] [place] [facility] [address] [id number] [place] [address] 22 Mar, 2010 [facility] [place] [facility] [address] [id number] [place] [address] 14 Mar, 2010 [facility] [place] [facility] [address] [id number] [place] [address] 14 Mar, 2010 [facility] [place] [facility] [address] [id number] [place] [address] Feb, [facility] [place] [facility] [address] [id number] [place] [address] Feb, [facility] [place] [facility] [address] [id number] [place] [address] 12 Jan, 2010 [facility] [place] [facility] [address] [id number] [place] [address] Jan, [facility] [place] [facility] [address] [id number] [place] [address] Jan, [facility] [place] [facility] [address] [id number] [place] [address] Oct, [facility] [place] [facility] [address] [id number], [place] [address] Oct, [facility] [place] [facility] [address] [id number] [place] [address] 15 Apr, 2009 [facility] [place] [facility] [address] [id number] [place] [address] Mar, [facility] [place] [facility] [address] [id number] [place] [address] Mar, [facility] [place] [facility] [address] [id number] [place] [address] Jan, [facility] [place] [facility] [address] [facility] [id number] [place] [address] Dec, IMMUNIZATIONS No Known Immunizations SOCIAL HISTORY Never Assessed REASON FOR VISIT continued cough, intermittent since April-----DBennettRN PLAN OF CARE VITAL SIGNS Height 63 in 2017-07-02 Weight 130 lbs 2017-07-02 Temperature 98.0 degrees Fahrenheit 2017-07-02 Heart Rate 80 bpm 2017-07-02 Respiratory Rate 20 2017-07-02 BMI 23.03 kg/m2 2017-07-02 Blood pressure systolic 120 mmHg 2017-07-02 Blood pressure diastolic 70 mmHg 2017-07-02 MEDICATIONS Medication Instructions Dosage Frequency Start Date End Date Duration Status Promethazine-Codeine 6.25-10 MG/5ML Orally prior to bed 5 ml as needed Jun, 10 days Active Symbicort 160-4.5 MCG/ACT Inhalation Twice a day 2 puffs 12h Jun, Active Flonase 50 MCG/ACT Nasally Once a day 1 spray in each nostril 24h Feb, Active ProAir HFA 108 (90 Base) MCG/ACT Inhalation every 4 hrs 2 puffs as needed 4h 07 May, 2016 Active Mucinex 600 MG Orally every 12 hrs 1 tablet as needed 12h 10 May, 2016 Active Diclofenac Sodium 50MG DR Orally Three times a day 1 tablet 8h Active Celexa 20 mg Orally Once a day 1 tablet 24h Active Gabapentin 300MG Orally 3 times a day 1 capsule by Oral route 3 times per day 8h Active Metformin HCl 1000 MG Orally Twice a day 1 tablet with meals 12h Feb, 30 day(s) Active Vytorin 10-40 MG Orally Once a day 1 tablet 24h Active Atenolol 100MG 1 tablet 24h 30 Active Pen [place] 32G X 4 MM subcutaneously 2 times a day use to Inject insulin 12h Feb, 90 days Active NyQuil Not-Taking Hydrochlorothiazide 50MG 1 tablet 24h 30 Active Albuterol Sulfate 90 mcg/actuation 2 puffs by Inhalation route every 4-6 hours as neededPRNcough or wheezing August, Active Amitriptyline HCl 150 MG Orally Once a day 1 tablet 24h 17 Feb, 2017 Active Percocet 5-325 MG Orally every 6 hrs prn 1 tablet as needed May, Active Zofran ODT 8 mg 1 tablet by Oral route every 8 hours PRN nausea or vomiting Jun, Not-Taking Levemir Flexpen 100 UNIT/ML Subcutaneous 2 times a day Inject 25 units in AM and PM 12h Active RESULTS Name Result Date Reference Range Xray : Chest 2 View (IN HOUSE) 2017-07-02 PROCEDURES Procedure Date Ordered Result Body Site X-RAY EXAM CHEST 2 VIEWS July 02, 2017 [facility] VISIT ESTABLISHED PATIENT July 02, 2017 INSTRUCTIONS MEDICATIONS ADMINISTERED No Known Medications [...]
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
--- OUTSIDE RECORDS SUMMARY | 2018-02-13 03:57 | XMS REPORT ---
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 Name Role Phone MATHEW NADIYA Unavailable PROBLEMS Type Condition ICD9-CM Code NPT16-WQ Code Onset Dates Condition Status SNOMED Code Problem Asthma J45.909 Active 371823402 Problem Reactive depression F32.9 Active 94390809 Problem Secondary hypertension I15.9 Active 49371163 Problem Open bite of left hand, initial encounter S61.452A Active 325820539 Problem Bitten by cat, initial encounter W55.01XA Active 097045093 Problem Moderate persistent asthma with exacerbation J45.41 Active 926637939 Problem Bronchitis J40 Active 77296920 Problem Simple chronic bronchitis J41.0 Active 93481345 Problem Recurrent major depressive disorder, in full remission F33.42 Active 144727085 Problem Renal failure N19 Active 32811180 Problem Joint pain of left hip on movement M25.552 Active 570991588 Problem Hypercholesterolemia E78.00 Active 65238794 Problem Environmental allergies Z91.09 Active 562990408 Problem PVD (peripheral vascular disease) I73.9 Active 314681651 Problem Diabetes mellitus E11.9 Active 51995990 Problem Proteinuria R80.9 Active 66673616 Problem Insomnia G47.00 Active 637148603 Problem Neuropathy G62.9 Active 706153069 Problem GERD (gastroesophageal reflux disease) K21.9 Active 538064288 ALLERGIES No Information ENCOUNTERS Encounter Location Date Diagnosis [facility] [id number], [place] [address] Oct, Dermatitis due to plants, including poison chris, sumac, and oak L25.5 [facility] [id number], [place] [address] Sep, Diabetes mellitus E11.9 and Medication management Z79.899 [facility] [id number] [place] [address] 94886- 5683 Sep, [place] [address] 57[address]- [address]646 August, Neuropathy G62.9 [facility] [address] [address] August, Open bite of left hand, initial encounter S61.452A ; Encounter for immunization Z23 and Bitten by cat, initial encounter W55.01XA [place] [address] 19508- 9633 05 Jul, 2017 Environmental allergies Z91.09 [place] [address] 25639- 8691 Jun, [place] [address] 48608- 0947 Jun, Simple chronic bronchitis J41.0 ; PVD (peripheral vascular disease) I73.9 and Recurrent major depressive disorder, in full remission F33.42 [facility] [address] [id number] Jun, 2017 Dental examination Z01.20 [facility] [id number] [place] [address]99 -0892 Jun, Moderate persistent asthma with exacerbation J45.41 [place] [address] 54903- 2664 May, Neuropathy G62.9 and Diabetes mellitus E11.9 [place] [id number] [place] [address] 43212- 6532 Apr, [facility] [address] [address] Apr, Cough R05 [place] [address] 57184- 8288 Feb, [place] [address] 70646- 1428 Feb, [facility] [address] 88[address]- 5127 Feb, Diabetes mellitus E11.9 ; Neuropathy G62.9 ; Joint pain of left hip on movement M25.552 and Encounter for immunization Z23 [facility] [address] 55603- 4623 Feb, [facility] [address] 74772- 4922 Feb, Diabetes mellitus E11.9 [facility] [address] 79378- 0340 Feb, [facility] [address] 54557- 2410 Jan, [facility] [address] 96216- 8142 Jan, Secondary hypertension I15.9 [facility] [address] 90803- 6267 Dec, Diabetes mellitus E11.9 [facility] [address] [id number] Nov, Encounter for dental examination Z01.20 [facility] [id number] [place] [address] Oct, Allergic contact dermatitis due to plants, except food L23.7 [facility] [address] 70415- 5575 Oct, [facility] [address] 35660- 8109 Oct, Diabetes mellitus E11.9 ; PVD (peripheral vascular disease) I73.9 ; Neuropathy G62.9 ; GERD (gastroesophageal reflux disease) K21.9 ; Insomnia G47.00 ; Environmental allergies Z91.09 ; Secondary hypertension I15.9 ; Reactive depression F32.9 ; Hypercholesterolemia E78.00 and Joint pain of left hip on movement M25.552 [facility] [id number] [place] [address] 90892- 8574 Sep, Diabetes mellitus E11.9 [facility] [id number] [place] [address] 03626- 7491 Sep, Diabetes mellitus E11.9 [facility] [address] 32303- 3474 Sep, Diabetes mellitus E11.9 [facility] [address] 91342- 6463 Sep, Neuropathy G62.9 [place] [address] 37057- 1561 August, [place] [address] 12597- 9062 Jul, [facility] [address] 05675- 4832 Jun, [facility] [address] 26201- 6957 Jun, Diabetes mellitus E11.9 ; PVD (peripheral vascular disease) I73.9 ; Neuropathy G62.9 ; Joint pain of left hip on movement M25.552 ; Renal failure N19 ; Asthma J45.909 ; Reactive depression F32.9 ; Pure hypercholesterolemia, unspecified E78.00 and Insomnia G47.00 [facility] [id number] [place] [address] 84587- 1858 Jun, Joint pain of left hip on movement M25.552 and Diabetes mellitus E11.9 [facility] [address] [address]32- 1986 Jun, [facility] [id number] [place] [address] 20052 -8344 May, Cough R05 and Bronchitis J40 [facility] [address] [place] [address]- 3505 May, [facility] [id number] [place] [address] 57015- 8453 May, [facility] [id number] [place] [address] 92875- 4324 May, Asthma J45.909 and Bronchitis J40 [facility] [address] 82036- 8306 May, [facility] [address] 77321- 5064 May, Bronchitis J40 [facility] [address] 91209- 4211 06 May, 2016 [facility] [id number] [place] [address] 28849- 2062 Apr, Diabetes mellitus E11.9 ; PVD (peripheral vascular disease) I73.9 ; GERD (gastroesophageal reflux disease) K21.9 ; Asthma J45.909 ; Insomnia G47.00 ; Environmental allergies Z91.09 ; Secondary hypertension I15.9 ; Joint pain of left hip on movement M25.552 ; Hypercholesterolemia E78.0 and Reactive depression F32.9 [place] [id number] [place] [address] 14933- 1439 Mar, Diabetes mellitus E11.9 ; PVD (peripheral vascular disease) I73.9 and Hypercholesterolemia E78.0 [facility] [id number] [place] [address] 98585- 5441 Mar, Diabetes mellitus E11.9 and Hypercholesterolemia E78.0 [facility] [address] 66009- 0739 Mar, [facility] [id number] [place] [address] 77149- 7524 Feb, [facility] [address] 32697- 9043 Feb, [place] [id number] [place] [address] 48622- 5668 Feb, [place] [address] 64105- 8050 Jan, Encounter for immunization Z23 [place] [address] 42554- 6567 Jan, [place] [address] 87963- 2888 Dec, [place] [id number] [place] [address] 35814- 7268 Dec, Diabetes mellitus E11.9 ; PVD (peripheral vascular disease) I73.9 ; GERD (gastroesophageal reflux disease) K21.9 ; Insomnia G47.00 ; Joint pain of left hip on movement M25.552 ; Asthma J45.909 ; Environmental allergies Z91.09 ; Hypercholesterolemia E78.0 ; Essential hypertension I10 and Neuropathy G62.9 [place] [id number] [place] [address] 73375- 9958 Nov, [place] [address] 78075- 1159 Nov, [place] [id number] [place] [address] 16028- 9188 Oct, PVD (peripheral vascular disease) I73.9 and Diabetes mellitus E11.9 [place] [id number] [place] [address] 54163- 7203 Sep, Diabetes mellitus E11.9 ; PVD (peripheral vascular disease) I73.9 ; Neuropathy G62.9 ; Joint pain of left hip on movement M25.552 ; GERD ( gastroesophageal reflux disease) K21.9 ; Asthma J45.909 ; Insomnia G47.00 ; Secondary hypertension I15.9 and Hypercholesteremia E78.0 [place] [id number] [place] [address] 85494- 1593 August, [facility] [id number] [place] [address] 93302- 0940 August, Neuropathy G62.9 [facility] [id number] [place] [address] 48580- 7987 August, Neuropathy G62.9 [facility] [id number] [place] [address] 33052- 1722 Jun, Diabetes mellitus E11.9 ; Joint pain of left hip on movement M25.552 ; PVD (peripheral vascular disease) I73.9 ; Neuropathy G62.9 ; GERD (gastroesophageal reflux disease) K21.9 ; Asthma J45.909 ; Insomnia G47.00 ; Environmental allergies Z91.09 ; HTN (hypertension) I10 and Hypercholesteremia E78.0 [facility] [id number] [place] [address] 86832- 5252 Jun, [facility] [address] 03333- 7686 Jun, [facility] [id number] [place] [address] 32562- 3458 Jun, [facility] [id number] [place] [address] 77320- 8769 Apr, [facility] [id number] [place] [address] 97998- 4205 Apr, [facility] [id number] [place] [address] 82842- 8044 Apr, Sinusitis J32.9 [facility] [id number] [place] [address] 43159- 9920 Apr, Neuropathy G62.9 [facility] [id number] [place] [address] 43173- 6796 Mar, [facility] [id number] [place] [address] 90998- 5435 Mar, [facility] [address] 87163- 3093 Mar, Diabetes mellitus E11.9 ; PVD (peripheral vascular disease) I73.9 ; Neuropathy G62.9 ; GERD (gastroesophageal reflux disease) K21.9 ; Renal failure N19 ; Asthma J45.909 ; Insomnia G47.00 ; Environmental allergies Z91.09 ; Sinusitis J32.9 ; Cough R05 ; Edema R60.9 ; HTN (hypertension) I10 and Hypercholesterolemia E78.0 [facility] [address] 66625 -8400 Mar, Dysuria R30.0 ; Vomiting, unspecified R11.10 ; Benign essential hypertension I10 and Dizziness R42 [facility] [address] 76459- 9952 Mar, [facility] [address] 06925- 7322 Mar, [facility] [address] 77315- 7732 Feb, [facility] [address] 76466- 9783 Feb, [facility] [address] 07883- 1641 Feb, [facility] [address] 73124- 7561 Feb, [facility] [address] 61094- 0797 Feb, Joint pain of left hip on movement M25.552 ; Lumbago M54.5 and UTI (urinary tract infection) N39.0 [facility] [address] 99592- 4348 Feb, [facility] [address] 19560- 6770 Feb, [facility] [address] [place] [address]- 3370 Jan, [facility] [id number] [place] [address] 61777- 3348 Jan, [facility] [id number] [place] [address] 76522- 5468 Jan, [facility] [id number] [place] [address] 97007- 8812 Jan, [facility] [address] 26096- 1047 Jan, 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 [facility] [address] 31671- 6866 30 Dec, 2014 Hypertension 401.9 and Diabetes 250.00 [facility] [id number] [place] [address] 83527- 7700 Dec, Diabetes 250.00 ; Influenza vaccine administered V04.81 ; Unspecified peripheral vascular disease 443.9 ; Issue of repeat prescriptions V68.1 ; Unspecified hereditary and idiopathic peripheral neuropathy 356.9 ; Insomnia, unspecified 780.52 ; Hypercholesteremia 272.0 ; Pain in joint, site unspecified 719.40 ; Dizziness 780.4 and PCV-13 (PREVNAR) DX V03.82 [facility] [id number] [place] [address] 66710- 7358 Dec, [facility] [id number] [place] [address] 44370- 4853 Dec, [facility] [id number] [place] [address] 30060- 4736 Dec, [facility] [id number] [place] [address] 08788- 2396 Dec, [facility] [id number] [place] [address] 25709- 8773 Dec, [facility] [id number] [place] [address] 84872- 3454 Dec, [facility] [address] [place] [address] 64596- 0581 Nov, [facility] [id number] [place] [address] 74793- 9995 Nov, Environmental allergies V15.09 ; Sacroiliitis, not elsewhere classified 720.2 and Cough 786.2 [place] [address] 52372- 7598 Oct, [facility] [id number] [place] [address] 10391- 1559 Oct, [facility] [id number] [place] [address] 69981- 9033 Oct, [facility] [id number] [place] [address] 74895- 0709 Sep, [facility] [id number] [place] [address] 87857- 7040 Sep, [facility] [id number] [place] [address] 985998- 4142 Sep, Dysuria 788.1 and Diabetes with other specified manifestations, type II or unspecified type, not stated as uncontrolled 250.80 [place] [id number] [place] [address] 43378- 0328 Sep, [facility] [id number] [place] [address] 280672- 1462 Sep, Diabetes with other specified manifestations, type II or unspecified type, not stated as uncontrolled 250.80 [place] [id number] [place] [address] 07924- 0081 Sep, DM w/o complication type II 250.00 ; Unspecified peripheral vascular disease 443.9 ; Pain in joint, pelvic region and thigh 719.45 ; Asthma , unspecified, unspecified status 493.90 ; Hypercholesteremia 272.0 ; Fatigue 780.79 ; UTI (lower urinary tract infection) 599.0 and Essential hypertension 401.9 [facility] [address], [place] [address]- 6371 Sep, [facility] [address], [place] [address]- 4701 Sep, [facility] [address] [address] Sep, [facility] [id number] [address]- 6542 August, [facility] [address], [place] [address]- 5197 August, [facility] [id number] [place] [address] 17276- 8031 August, Diabetes with other specified manifestations, type II or unspecified type, not stated as uncontrolled 250.80 [facility] [address], [place] [address]- 3875 Jul, Peripheral vascular disease 443.9 [facility] [address], [place] [address]- 3604 Jul, [facility] [address], [place] [address]- 2947 Jul, [facility] [address], [place] [address]- 4175 Jun, [facility] [address], [place] [address]- 8900 Jun, [facility] [address] [address]- 1133 Jun, [facility] [address], [place] [address]- 3194 Jun, [facility] [address] [address]- 9628 Jun, [facility] [address] [address]- 2922 Jun, [facility] [place] [facility] [address] [id number] [place] [address]- 5217 Jun, [facility] [place] [facility] [address] [id number] [place] [address]- 3121 Jun, 2014 [facility] [place] [facility] [address] [facility] [id number] [place] [address]- 8180 Jun, [facility] [place] [facility] [address] [facility] [id number] [place] [address]- 8851 May, 2014 [facility] [place] [facility] [address] [id number] [place] [address]- 2139 May, 2014 [facility] [place] [facility] [address] [facility] [id number] [place] [address]- 5687 24 May, 2014 [facility] [place] [facility] [address] [facility] [id number] [place] [address]- 8972 May, 2014 [facility] [place] [facility] [address] [facility] [id number] [place] [address]- 8504 May, 2014 [facility] [place] [facility] [address] [facility] [id number] [place] [address]- 0991 May, 2014 [facility] [place] [facility] [address] [facility] [id number] [place] [address]- 7770 May, 2014 [facility] [place] [facility] [address] [facility] [id number] [place] [address]- 5922 13 May, 2014 [facility] [place] [facility] [address] [facility] [id number] [place] [address]- 7891 13 May, 2014 [facility] [place] [facility] [address] [facility] [id number] [place] [address]- 2389 May, 2014 [facility] [place] [facility] [address] [facility] [id number] [place] [address]- 9662 12 May, 2014 [facility] [place] [facility] [address] [facility] [id number] [place] [address]- 0128 May, [facility] [place] [facility] [address] [id number] [place] [address]- 9696 May, [facility] [place] [facility] [address] [id number] [place] [address]- 5283 Apr, [facility] [place] [facility] [address] [id number] [place] [address]- 5479 Apr, [facility] [place] [facility] [address] [id number] [place] [address]- 0296 Apr, [facility] [place] [facility] [address] [id number] [place] [address]- 3524 Apr, [facility] [place] [facility] [address] [id number] [place] [address]- 0293 Apr, [facility] [place] [facility] [address] [id number] [place] [address]- 1028 Apr, [facility] [place] [facility] [address] [id number] [place] [address]- 8023 Apr, [facility] [place] [facility] [address] [id number] [place] [address]- 8204 Apr, [facility] [place] [facility] [address] [id number] [place] [address]- 9049 Mar, [facility] [place] [facility] [address] [id number] [place] [address]- 5094 Mar, [facility] [place] [facility] [address] [id number] [place] [address]- 2392 Mar, [facility] [place] [facility] [address] [id number] [place] [address]- 6950 Mar, [facility] [place] [facility] [address] [id number] [place] [address]- 1716 Mar, [facility] [place] [facility] [address] [id number] [place] [address]- 8886 Mar, [facility] [place] [facility] [address] [id number] [place] [address]- 2217 Mar, [facility] [place] [facility] [address] [id number] [place] [address]- 8662 Mar, [facility] [place] [facility] [address] [id number] [place] 1274 Mar, [facility] [place] [facility] [address] [id number] [place] [address]- 1770 Mar, [facility] [place] [facility] [address] [id number] [place] [address]- 7005 Mar, [facility] [place] [facility] [address] [id number] [place] [address]- 6543 Mar, [facility] [place] [facility] [address] [id number] [place] [address]- 1912 Mar, [facility] [place] [facility] [address] [id number] [place] [address]- 6932 Mar, [facility] [place] [facility] [address] [id number] [place] [address]- 9720 Feb, [facility] [place] [facility] [address] [id number] [place] [address]- 7235 Feb, [facility] [place] [facility] [address] [id number] [place] [address]- 4467 Feb, [facility] [place] [facility] [address] [id number] [place] [address]- 9848 Feb, [facility] [place] [facility] [address] [id number] [address]- 5343 Feb, [facility] [place] [facility] [address] [id number] [place] [address] Feb, [facility] [place] [facility] [address] [id number] [place] [address] Feb, [facility] [place] [facility] [address] [id number] [place] [address] Feb, [facility] [place] [facility] [address] [id number] [place] [address] Feb, [facility] [place] [facility] [address] [id number] [place] [address] Feb, [facility] [place] [facility] [address] [id number] [place] [address] Feb, [facility] [place] [facility] [address] [id number] [place] [address] Feb, [facility] [place] [facility] [address] [id number] [place] [address] Feb, [facility] [place] [facility] [address] [id number] [place] [address] Feb, [facility] [place] [facility] [address] [id number] [place] [address] Feb, [facility] [place] [facility] [address] [id number] [place] [address] Feb, [facility] [place] [facility] [address] [id number] [place] [address] Jan, [facility] [place] [facility] [address] [id number] [place] [address] Jan, [facility] [place] [facility] [address] [id number] [place] [address] Jan, [facility] [place] [facility] [address] [id number] [place] [address] Jan, [facility] [place] [facility] [address] [id number] [place] [address] Jan, [facility] [place] [facility] [address] [id number] [place] [address] Jan, [facility] [place] [facility] [address] [id number] [place] [address] Jan, [facility] [place] [facility] [address] [id number] [place] [address] Jan, [facility] [place] [facility] [address] [id number] [place] [address] Dec, [facility] [place] [facility] [address] [id number] [place] [address] Dec, [facility] [place] [facility] [address] [id number] [place] [address] Nov, [facility] [place] [facility] [address] [id number] [place] [address] Nov, [facility] [place] [facility] [address] [id number] [place] [address] Nov, [facility] [place] [facility] [address] [id number] [place] [address] Nov, [facility] [place] [facility] [address] [id number] [place] [address] Nov, [facility] [place] [facility] [address] [id number] [place] [address] Nov, [facility] [place] [facility] [address] [id number] [place] [address] 7696 Oct, [facility] [place] [facility] [address] [id number] [place] [address]- 5[address] Oct, [facility] [place] [facility] [address] [id number] [place] [address]- 0964 Oct, [facility] [place] [facility] [address] [id number], [place] [address] Oct, [facility] [place] [facility] [address] [id number] [place] [address]107 Sep, [facility] [place] [facility] [address] [id number] [place] [address]- 5017 Sep, [facility] [place] [facility] [address] [id number] [place] [address] 3815 Sep, [facility] [place] [facility] [address] [id number] [place] [address]- 4118 Sep, [facility] [place] [facility] [address] [id number] [place] [address]- 0[address] Sep, [facility] [place] [facility] [address] [id number] [place] [address]- 6596 Sep, [facility] [place] [facility] [address] [id number] [place] [address] August, [facility] [place] [facility] [address] [id number] [place] [address] 9974 August, [facility] [place] [facility] [address] [id number] [place] [address]- [address] August, [facility] [place] [facility] [address] [id number] [place] [address] 9233 August, [facility] [address] [id number] [place] [address]- 1591 August, [facility] [place] [facility] [address] [id number] [place] [address]- 3165 August, [facility] [place] [facility] [address] [id number] [place] [address] August, [facility] [address] [id number] [place] [address] 47[address] August, [facility] [place] [facility] [address] [id number] [place] [address]- 6477 August, [facility] [place] [facility] [address] [id number] [place] [address]- 8777 August, [facility] [place] [facility] [address] [id number] [place] [address]- 7178 August, [facility] [place] [facility] [address] [id number] [place] [address]- 8117 August, [facility] [place] [facility] [address] [id number] [place] [address]- 1673 Jul, [facility] [place] [facility] [address] [id number] [place] [address]- 3010 Jul, [facility] [place] [facility] [address] [id number] [place] [address]- 8343 Jul, [facility] [place] [facility] [address] [id number] [place] [address]- 3401 Jul, [facility] [place] [facility] [address] [id number] [place] [address]- 2758 Jul, [facility] [place] [facility] [address] [id number] [place] [address]- 4952 Jul, [facility] [place] [facility] [address] [id number] [place] [address]- 4540 Jul, [facility] [place] [facility] [address] [id number] [place] [address]- 1075 Jul, [facility] [place] [facility] [address] [id number] [place] [address]- 7752 Jul, [facility] [place] [facility] [address] [id number] [place] [address]- 4106 Jul, [facility] [place] [facility] [address] [id number] [place] [address]- 1419 Jul, [facility] [place] [facility] [address] [id number] [place] [address]- 2087 Jun, [facility] [place] [facility] [address] [id number] [place] [address]- 6194 31 Jun, 2013 [facility] [place] [facility] [address] [id number] [place] [address]- 7222 Jun, [facility] [place] [facility] [address] [id number] [place] [address]- 3028 Jun, [facility] [place] [facility] [address] [id number] [place] [address]- 4280 Jun, [facility] [place] [facility] [address] [id number] [place] [address]- 1432 Jun, [facility] [place] [facility] [address] [id number] [place] [address]- 9128 Jun, [facility] [place] [facility] [address] [id number] [place] [address]- 5944 Jun, [facility] [place] [facility] [address] [id number] [place] [address]- 6369 Jun, [facility] [place] [facility] [address] [id number] [place] [address]- 3634 May, [facility] [place] [facility] [address] [id number] [place] [address]- 6213 May, [facility] [place] [facility] [address] [id number] [place] [address]- 6458 May, [facility] [place] [facility] [address] [id number] [place] [address]- 7384 Apr, [facility] [place] [facility] [address] [id number] [place] [address]- 1339 Apr, [facility] [place] [facility] [address] [id number] [place] [address]- 8030 Apr, [facility] [place] [facility] [address] [id number] [place] [address]- 1665 Apr, [facility] [place] [facility] [address] [id number] [place] [address]- 7310 Apr, [facility] [place] [facility] [address] [id number] [place] [address]- 0722 Apr, [facility] [place] [facility] [address] [id number] [place] [address]- 1076 Apr, [facility] [place] [facility] [address] [id number] [place] [address]- 3267 Apr, [facility] [place] [facility] [address] [id number] [place] [address]- 6728 Mar, [facility] [place] [facility] [address] [id number] [place] [address]- 2306 Mar, [facility] [place] [facility] [address] [id number] [place] [address]- 3762 Feb, [facility] [place] [facility] [address] [id number] [place] [address]- 7485 Feb, [facility] [place] [facility] [address] [id number] [place] [address] 1942 Jan, [facility] [place] [facility] [address] [id number] [place] [address]- 6377 Jan, [facility] [place] [facility] [address] [id number] [place] [address] Jan, [facility] [place] [facility] [address] [id number] [place] [address]- 6931 Jan, [facility] [place] [facility] [address] [id number] [place] [address]- 3760 Jan, [facility] [place] [facility] [address] [id number] [place] [address]- 3404 24 Jan, 2013 [facility] [place] [facility] [address] [id number] [place] [address]- 4448 Jan, [facility] [place] [facility] [address] [id number] [place] [address]- 0842 Jan, [facility] [place] [facility] [address] [id number] [place] [address]- 2353 17 Jan, 2013 [facility] [place] [facility] [address] [id number] [place] [address]- 9070 17 Jan, 2013 [facility] [place] [facility] [address] [id number] [place] [address]- 6374 14 Jan, 2013 [facility] [place] [facility] [address] [id number] [place] [address]80 14 Jan, 2013 [facility] [place] [facility] [address] [id number] [place] [address]- 5962 Jan, [facility] [place] [facility] [address] [id number] [place] [address]- 4736 10 Jan, 2012 [facility] [place] [facility] [address] [id number] [place] [address]- 1236 Jan, 2012 [facility] [place] [facility] [address] [id number] [place] [address]- 5934 Jan, 2012 [facility] [place] [facility] [address] [id number] [place] [address]- 9699 Jan, [facility] [place] [facility] [address] [id number] [place] [address]- 3134 Jan, [facility] [place] [facility] [address] [id number] [place] [address]- 0479 08 Jan, 2013 [facility] [place] [facility] [address] [id number] [place] [address]- 7991 Jan, [facility] [place] [facility] [address] [id number] [place] [address]- 6966 Jan, [facility] [place] [facility] [address] [id number] [place] [address]- 6406 Jan, [facility] [place] [facility] [address] [id number] [address]- 2082 Jan, [facility] [place] [facility] [address] [id number], [place] [address]- 9766 17 Dec, 2012 [facility] [place] [facility] [address] [id number], [place] [address]- 5824 16 Dec, 2012 [facility] [place] [facility] [address] [id number] [place] [address]- 3402 Nov, [facility] [place] [facility] [address] [id number], [place] [address]- 5571 Oct, [facility] [place] [facility] [address] [id number], [place] [address]- 2545 Oct, [facility] [place] [facility] [address] [id number] [place] [address]- 4919 Oct, [facility] [address] [id number] [place] [address]- 1453 Oct, [facility] [place] [facility] [address] [id number] [place] [address]- 7366 Oct, [facility] [address] [id number] [place] [address]- 9662 Oct, [facility] [place] [facility] [address] [id number] [place] [address]- 0840 Sep, [facility] [address] [id number] [place] [address]- 9761 Sep, [facility] [place] [facility] [address] [id number] [place] [address]- 7157 Sep, [facility] [address] [id number] [place] [address]- 9782 Jul, [facility] [address] [id number] [place] [address]- 2474 Jul, [facility] [place] [facility] [address] [id number] [place] [address]- 1635 Jul, [facility] [address] [id number] [place] [address]- 5004 Jun, [facility] [place] [facility] [address] [id number] [place] [address]- 1469 Jun, [facility] [place] [facility] [address] [id number] [place] [address]- 7529 Jun, [facility] [place] [facility] [address] [id number] [place] [address]- 0540 Jun, [facility] [place] [facility] [address] [id number] [place] [address]- 6463 Jun, [facility] [place] [facility] [address] [id number] [place] [address]- 3256 Jun, [facility] [place] [facility] [address] [id number] [place] [address]- 8175 May, [facility] [address] [id number] [place] [address]- 7516 May, [facility] [address] [id number] [place] [address]- 9561 Apr, [facility] [address] [id number] [place] [address]- 3996 Apr, [facility] [address] [id number] [place] [address]- 1518 Apr, [facility] [address] [id number] [place] [address]- 6096 Apr, [facility] [address] [id number] [place] [address]- 7213 Apr, [facility] [address] [id number] [place] [address]- 2892 Mar, [facility] [address] [id number] [place] [address]- 6887 Mar, [facility] [address] [id number] [place] [address]- 6125 Mar, [facility] [address] [id number] [place] [address]- 6076 Mar, [facility] [address] [id number] [place] [address]- 0069 14 Mar, 2012 [facility] [place] [facility] [address] [id number] [place] [address] 2546 14 Mar, 2012 [facility] [place] [facility] [address] [id number] [place] [address]- 7576 10 Mar, 2012 [facility] [place] [facility] [address] [id number] [place] [address]- 6104 10 Mar, 2012 [facility] [place] [facility] [address] [id number], [place] [address]- 5375 Mar, [facility] [place] [facility] [address] [id number] [place] [address]- 3139 Mar, [facility] [place] [facility] [address] [id number], [place] [address]- 6188 Feb, [facility] [place] [facility] [address] [facility] [id number] [place] [address]- 8138 Feb, [facility] [place] [facility] [address] [id number], [place] [address]- 0556 Feb, [facility] [place] [facility] [address] [id number] [place] [address]- 8914 Feb, [facility] [place] [facility] [address] [id number] [place] [address]- 9693 Feb, [facility] [place] [facility] [address] [id number], [place] [address]- 0665 Feb, [facility] [place] [facility] [address] [id number], [place] [address]- 5469 Feb, [facility] [place] [facility] [address] [id number], [place] [address]- 0903 Feb, [facility] [place] [facility] [address] [facility] [id number], [place] [address]- 3560 Feb, [facility] [place] [facility] [address] [facility] [id number], [place] [address]- 7434 Feb, [facility] [place] [facility] [address] [facility] [id number], [place] [address]- 1463 Jan, [facility] [place] [facility] [address] [id number], [place] [address]- 5708 Jan, [facility] [place] [facility] [address] [facility] [id number], [place] [address]- 8801 Jan, [facility] [place] [facility] [address] [facility] [id number], [place] [address]- 7136 Jan, [facility] [place] [facility] [address] [id number] [place] [address]- 1059 28 Sep, 2011 [facility] [place] [facility] [address] [id number] [place] [address]- 0096 25 Sep, 2011 [facility] [place] [facility] [address] [id number] [place] [address] 2546 18 Sep, 2011 [facility] [place] [facility] [address] [id number] [place] [address] 2546 18 Sep, 2011 [facility] [place] [facility] [address] [id number] [place] [address] 2546 17 Sep, 2011 [facility] [place] [facility] [address] [id number] [place] [address]- 3436 14 Sep, 2011 [facility] [place] [facility] [address] [id number] [place] [address]- 5900 13 Dec, 2011 [facility] [place] [facility] [address] [id number] [place] [address]- 8177 13 Dec, 2011 [facility] [place] [facility] [address] [id number] [place] [address]- 8034 06 Dec, 2011 [facility] [place] [facility] [address] [id number] [place] [address]- 1669 31 Nov, 2011 [facility] [place] [facility] [address] [id number] [place] [address]- 6748 30 Nov, 2011 [facility] [place] [facility] [address] [id number] [place] [address]- 9804 Nov, [facility] [place] [facility] [address] [id number] [place] [address] 2543 09 Nov, 2011 [facility] [place] [facility] [address] [id number] [place] [address]- 5186 Sep, [facility] [place] [facility] [address] [id number] [place] [address] 2546 07 Sep, 2011 [facility] [place] [facility] [address] [id number] [place] [address]- 2453 Sep, [facility] [address] [id number] [place] [address]- 9103 August, [facility] [place] [facility] [address] [id number] [place] [address]- 5914 August, [facility] [place] [facility] [address] [id number] [place] [address]- 7174 August, [facility] [place] [facility] [address] [id number] [place] [address]- 3869 August, [facility] [place] [facility] [address] [id number] [place] [address]- 9018 August, [facility] [place] [facility] [address] [id number] [place] [address]- 5052 August, [facility] [place] [facility] [address] [id number] [place] [address]- 7163 August, [facility] [place] [facility] [address] [id number] [place] [address]- 2372 August, [facility] [place] [facility] [address] [id number] [place] [address]- 6800 August, [facility] [place] [facility] [address] [id number] [place] [address]- 1064 Jul, [facility] [place] [facility] [address] [id number] [place] [address]- 6537 Jun, [facility] [place] [facility] [address] [id number] [place] [address]- 6775 Jun, [facility] [place] [facility] [address] [id number] [place] [address]- 1658 Jun, [facility] [place] [facility] [address] [id number] [place] [address]- 3511 Jun, [facility] [place] [facility] [address] [id number] [place] [address]- 8290 Jun, [facility] [place] [facility] [address] [id number] [place] [address]- 0507 04 Jun, 2011 [facility] [place] [facility] [address] [id number] [place] [address]- 3936 Jun, [facility] [place] [facility] [address] [id number] [place] [address]- 8076 Jun, [facility] [place] [facility] [address] [id number] [place] [address]- 2126 27 May, 2011 [facility] [place] [facility] [address] [id number] [place] [address]- 1620 21 May, 2011 [facility] [place] [facility] [address] [id number] [place] [address]- 1571 20 May, 2011 [facility] [place] [facility] [address] [id number] [place] [address]- 8116 19 May, 2011 [facility] [place] [facility] [address] [id number] [place] [address]- 5796 17 May, 2011 [facility] [place] [facility] [address] [id number] [place] [address]- 0423 16 May, 2011 [facility] [place] [facility] [address] [id number] [place] [address]- 7495 14 May, 2011 [facility] [place] [facility] [address] [id number] [place] [address]- 1564 Apr, [facility] [place] [facility] [address] [id number] [place] [address]- 8171 16 Apr, 2011 [facility] [place] [facility] [address] [id number] [place] [address] 2540 13 Apr, 2011 [facility] [place] [facility] [address] [id number] [place] [address] 11 Apr, 2011 [facility] [place] [facility] [address] [id number] [place] [address] 10 Apr, 2011 [facility] [place] [facility] [address] [id number] [place] [address] Apr, [facility] [place] [facility] [address] [id number] [place] [address] Apr, [facility] [place] [facility] [address] [id number] [place] [address] Apr, [facility] [place] [facility] [address] [id number] [place] [address] Mar, [facility] [place] [facility] [address] [id number] [place] [address] Mar, [facility] [place] [facility] [address] [id number] [place] [address] Feb, [facility] [place] [facility] [address] [id number] [place] [address] Feb, [facility] [place] [facility] [address] [id number] [place] [address] Feb, [facility] [place] [facility] [address] [id number] [place] [address] 16 Feb, 2011 [facility] [place] [facility] [address] [id number] [place] [address] Feb, [facility] [place] [facility] [address] [id number] [place] [address] 24 Jan, 2011 [facility] [place] [facility] [address] [id number] [place] [address] Nov, [facility] [place] [facility] [address] [id number] [address] Sep, [facility] [place] [facility] [address] [id number] [place] [address] August, [facility] [place] [facility] [address] [id number] [place] [address] Jun, [facility] [place] [facility] [address] [id number] [place] [address] 14 May, 2010 [facility] [place] [facility] [address] [facility] [id number] [place] [address] 18 Apr, 2010 [facility] [address] [id number] [place] [address] 22 Mar, 2010 [facility] [address] [facility] [id number] [place] [address] 14 Mar, 2010 [facility] [address] [facility] [id number] [place] [address] 14 Mar, 2010 [facility] [address] [facility] [id number] [place] [address] 12 Feb, 2010 [facility] [address] [facility] [id number] [place] [address] Feb, [facility] [address] [facility] [id number] [place] [address] Jan, [facility] [address] [facility] [id number] [place] [address] Jan, [facility] [address] [facility] [id number] [place] [address] Jan, [facility] [address] [facility] [id number] [place] [address] Oct, [facility] [address] [facility] [id number] [place] [address] Oct, [facility] [address] [facility] [id number] [place] [address] 15 Apr, 2009 [facility] [address] [facility] [id number], [place] [address] Mar, [facility] [address] [facility] [id number], [place] [address] Mar, [facility] [address] [facility] [id number], [place] [address] 23 Jan, 2009 [facility] [address] [facility] [id number] [address] 12 Dec, 2008 IMMUNIZATIONS No Known Immunizations SOCIAL HISTORY Never Assessed REASON FOR VISIT Requests return call PLAN OF CARE VITAL SIGNS MEDICATIONS No [...]
--- OUTSIDE RECORDS SUMMARY | 2018-02-13 03:57 | XMS REPORT ---
Author Author NICHELLE VALENZUELA [facility] [place] eClinicalWorks Address Unknown Phone Unavailable Care Team Providers Care Executive Director Sheltered Workshop Name Role Phone NICHELLE VALENZUELA Unavailable Allergies [...] at health care facility V70.0 Active Medications Medication Code System Code Instructions Start Date End Date Status Dosage Diclofenac Sodium [facility] [address]-42 50 MG Orally Three times a day Nov 23, 2014 Dec 23, 2014 1 tablet Results No Known Results Summary Purpose eClinicalWorks Submission
--- OUTSIDE RECORDS SUMMARY | 2018-02-13 03:58 | XMS REPORT ---
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
--- OUTSIDE RECORDS SUMMARY | 2018-02-13 03:58 | XMS REPORT ---
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
--- OUTSIDE RECORDS SUMMARY | 2018-02-13 03:58 | XMS REPORT ---
Author Author NICHELLE VALENZUELA [facility] eClinicalWorks Address Unknown Phone Unavailable Care Team Providers Care Store Merchandiser Name Role Phone NICHELLE VALENZUELA Unavailable Allergies [...] Instructions Start Date End Date Status Dosage Zanaflex [facility] [address]-87 4 MG Orally every 8 hrs September 19, 2014 1 tablet as needed Percocet [facility] [address]-88 5-325 MG Orally every 6 hrs Jun 16, 2014 take 1 tablet by oral route every 6 hours as needed Results No Known Results Summary Purpose eClinicalWorks Submission
--- OUTSIDE RECORDS SUMMARY | 2018-02-13 03:58 | XMS REPORT ---
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 056370969 Problem Neuropathy G62.9 Active 612199036 Problem Proteinuria R80.9 Active 46523769 Problem Diabetes mellitus E11.9 Active 03360503 Problem PVD (peripheral vascular disease) I73.9 Active 008864619 Assessment Diabetes mellitus E11.9 Dec, Active 20536244 Problem Environmental allergies Z91.09 Active 355490926 Problem Insomnia G47.00 Active 102102063 Assessment Essential hypertension I10 Dec, Active 50079754 Problem Asthma J45.909 Active 708578633 ALLERGIES Substance Reaction Event Type Date Status Stadol Unknown Drug Allergy Dec, Active Glucotrol Unknown Drug Allergy Dec, Active SOCIAL HISTORY No smoking Hx information available PLAN OF CARE VITAL SIGNS Height 63 in 2015-12-26 Weight 130.8 lbs 2015-12-26 Heart Rate 72 bpm 2015-12-26 Respiratory Rate 18 2015-12-26 BMI 23.17 kg/m2 2015-12-26 Blood pressure systolic 120 mmHg 2015-12-26 Blood pressure diastolic 82 mmHg 2015-12-26 MEDICATIONS Medication Instructions Dosage Frequency Start Date End Date Duration Status Flonase 50 MCG/ACT Nasally Once a day 1 spray in each nostril 24h 25 Feb, 2015 Active Norvasc 5 mg Orally 2 times a day 1 tablet by Oral route 2 times per day 12h Active Levemir 100 UNIT/ML Subcutaneous 2 times a day inject 25 unit in am and pm 12h 12 May, 2014 Active Pen Dalton 31G X 6 MM as directed 12h Feb, Active Atenolol 100 MG orally once 1 tablet by Oral route 1 time per day Jun Active Vytorin 10-40 MG Orally Once a day 1 tablet 24h Active Diclofenac Sodium 50MG DR Orally Three times a day 1 tablet 8h Active Gabapentin 300 MG Orally 3 times a day 1 capsule by Oral route 3 times per day 8h Active Metformin HCl 1000MG Orally Twice a day 1 tablet with meals 12h Active Percocet 5-325 MG Orally every 6 hrs 1 tablet as needed 6h Active Hydrochlorothiazide 50 MG Orally Once a day 1 tablet 24h Mar, Active Zofran ODT 8 mg 1 tablet by Oral route every 8 hours PRN nausea or vomiting Jun, Active Albuterol Sulfate 90 mcg/actuation 2 puffs by Inhalation route every 4-6 hours as neededPRNcough or wheezing August, Active amitriptyline 150 mg by oral route Once a day 1 tablet 24h Jun, Active RESULTS Name Result Date Reference Range A1C (IN HOUSE) 2015-12-26 A1C IN HOUSE 5.8 4.3 - 5.6 % Previous A1c 5.8 Lot [id number] Exp date 2017-09 PROCEDURES Procedure Date Ordered Related Diagnosis Body Site GLYCATED HEMOGLOBIN TEST Dec 26, 2015 [facility] VISIT ESTABLISHED PATIENT Dec 26, 2015 Office Visit, Est Pt., Level 4 Dec 26, 2015 IMMUNIZATIONS No Known Immunizations
--- OUTSIDE RECORDS SUMMARY | 2018-02-13 03:58 | XMS REPORT ---
Author Author NICHELLE VALENZUELA [facility] eClinicalWorks Address Unknown Phone Unavailable Care Team Providers Care Sharepoint Application Architect Name Role Phone NICHELLE VALENZUELA Unavailable Allergies [...] Instructions Start Date End Date Status Dosage Atenolol [facility] [address]-89 100 MG orally once July 01, 2014 1 tablet by Oral route 1 time per day Results No Known Results Summary Purpose eClinicalWorks Submission
--- OUTSIDE RECORDS SUMMARY | 2018-02-13 03:58 | XMS REPORT ---
Author Author NICHELLE VALENZUELA [facility] eClinicalWorks Address Unknown Phone Unavailable Care Team Providers Care Web Development Intern Name Role Phone NICHELLE VALENZUELA Unavailable Allergies [...] Instructions Start Date End Date Status Dosage Norvasc [facility] [address]-20 5 MG Orally 2 times a day May 02, 2014 1 tablet by Oral route 2 times per day Atenolol [facility] [address]-09 100 mg orally once July 01, 2014 1 tablet by Oral route 1 time per day Results No Known Results Summary Purpose eClinicalWorks Submission
--- OUTSIDE RECORDS SUMMARY | 2018-02-13 03:58 | XMS REPORT ---
Author Author NICHELLE VALENZUELA [facility] eClinicalWorks Address Unknown Phone Unavailable Care Team Providers Care Screed Person Name Role Phone NICHELLE VALENZUELA Unavailable Allergies [...] Start Date End Date Status Dosage Zanaflex [facility] [address]-54 4 MG Orally every 8 hrs September 19, 2014 1 tablet as needed Percocet [facility] [address]-60 5-325 MG Orally every 6 hrs Jun 16, 2014 take 1 tablet by oral route every 6 hours as needed Results No Known Results Summary Purpose eClinicalWorks Submission
--- OUTSIDE RECORDS SUMMARY | 2018-02-13 03:58 | XMS REPORT ---
Author Author NICHELLE VALENZUELA Organization [facility] Address [address] [place] [address] Care Team Providers Care Family Intervention Specialist Name Role Phone ZULEIKA VALENZUELANETTE Unavailable PROBLEMS Type Condition ICD9-CM Code KKG32-IA Code Onset Dates Condition Status SNOMED Code Problem PVD (peripheral vascular disease) I73.9 Active 990531394 Problem Insomnia G47.00 Active 870447651 Problem Diabetes mellitus E11.9 Active 98649573 Problem Encounter for dental examination Z01.20 Active 751605024 Problem Bronchitis J40 Active 31071363 Problem Asthma J45.909 Active 580037314 Problem GERD (gastroesophageal reflux disease) K21.9 Active 084808117 Problem Reactive depression F32.9 Active 13479953 Problem Secondary hypertension I15.9 Active 78761704 Problem Renal failure N19 Active 10138857 Problem Joint pain of left hip on movement M25.552 Active 039477973 Problem Hypercholesterolemia E78.00 Active 17757398 Problem Proteinuria R80.9 Active 33996001 Problem Environmental allergies Z91.09 Active 713305605 Problem Neuropathy G62.9 Active 802834704 ALLERGIES Substance Reaction Event Type Date Status Stadol Unknown Drug Allergy May, Active Glucotrol Unknown Drug Allergy May, Active SOCIAL HISTORY Never Assessed PLAN OF CARE Activity Details Follow Up 3 Months, prn Reason: VITAL SIGNS Height 63 in 2016-05-31 Weight 130 lbs 2016-05-31 Temperature 98.2 degrees Fahrenheit 2016-05-31 Heart Rate 66 bpm 2016-05-31 Respiratory Rate 20 2016-05-31 BMI 23.03 kg/m2 2016-05-31 Blood pressure systolic 130 mmHg 2016-05-31 Blood pressure diastolic 80 mmHg 2016-05-31 MEDICATIONS Medication Instructions Dosage Frequency Start Date End Date Duration Status Pen Mclean 31G X 6 MM as directed 12h 25 Feb, 2015 Active Percocet 5-325 MG Orally every 6 hrs 1 tablet as needed 6h 18 Nov, 2016 Active Flonase 50 MCG/ACT Nasally Once a day 1 spray in each nostril 24h 25 Feb, 2015 Active Celexa 20 mg Orally Once a day 1 tablet 24h Apr, 30 day(s) Active Norvasc 5 mg Orally 2 times a day 1 tablet by Oral route 2 times per day 12h Active NyQuil Active Vytorin 10-40 MG Orally Once a day 1 tablet 24h Active ProAir HFA 108 (90 Base) MCG/ACT Inhalation every 4 hrs 2 puffs as needed 4h May, Active Azithromycin 250 MG Orally Once a day 2 tablets on the first day, then 1 tablet daily for 4 days 24h May, May, Active Levemir 100 UNIT/ML Subcutaneous 2 times a day inject 25 unit in am and pm 12h May, Active Hydrochlorothiazide 50 mg Orally Once a day 1 tablet 24h 29 Mar, 2015 Active Atenolol 100 MG orally once 1 tablet by Oral route 1 time per day Jun Active amitriptyline 150 mg by oral route Once a day 1 tablet 24h Jun, Active Promethazine-Codeine 6.25-10 MG/5ML Orally every 6 hrs 5 ml as needed 6h May, Active Metformin HCl 1000MG Orally Twice a day 1 tablet with meals 12h Active Gabapentin 300 MG Orally 3 times a day 1 capsule by Oral route 3 times per day 8h 90 Active Mucinex 600 MG Orally every 12 hrs 1 tablet as needed 12h 10 May, 2016 Active Diclofenac Sodium 50MG DR Orally Three times a day 1 tablet 8h Active Albuterol Sulfate 90 mcg/actuation 2 puffs by Inhalation route every 4-6 hours as neededPRNcough or wheezing August, Active RESULTS No Results PROCEDURES Procedure Date Ordered Result Body Site [facility] VISIT ESTABLISHED PATIENT May 31, 2016 IMMUNIZATIONS No Known Immunizations MEDICAL (GENERAL) HISTORY Type Description Date Medical [...]
--- OUTSIDE RECORDS SUMMARY | 2018-02-13 03:59 | XMS REPORT ---
Author Author Sebastian NICHELLE Organization [facility] Address [address] [place] [address] Care Team Providers Care Cad Application Support Specialist Name Role Phone rodgerNICHELLE Mahmood Unavailable PROBLEMS Type Condition ICD9-CM Code IYI66-AT Code Onset Dates Condition Status SNOMED Code Problem Insomnia G47.00 Active 375111632 Problem Asthma J45.909 Active 548306247 Problem GERD (gastroesophageal reflux disease) K21.9 Active 872529754 Problem Simple chronic bronchitis J41.0 Active 78039593 Problem Recurrent major depressive disorder, in full remission F33.42 Active 043059694 Problem Reactive depression F32.9 Active 31682406 Problem Secondary hypertension I15.9 Active 94131594 Problem Moderate persistent asthma with exacerbation J45.41 Active 342629149 Problem Bronchitis J40 Active 05925564 Problem Hypercholesterolemia E78.00 Active 95545117 Problem Environmental allergies Z91.09 Active 330996364 Problem Proteinuria R80.9 Active 21964531 Problem Neuropathy G62.9 Active 593123132 Problem Renal failure N19 Active 03736053 Problem PVD (peripheral vascular disease) I73.9 Active 485099856 Problem Joint pain of left hip on movement M25.552 Active 154813891 Problem Diabetes mellitus E11.9 Active 57284526 ALLERGIES No Information ENCOUNTERS Encounter Location Date Diagnosis [facility] [address] [facility] [id number] [address] 05 Jul, 2017 Environmental allergies Z91.09 [facility] [id number] [place] [address] 67411- 1170 Jun, [facility] [address] [address] 14 Jun, 2017 Simple chronic bronchitis J41.0 ; PVD (peripheral vascular disease) I73.9 and Recurrent major depressive disorder, in full remission F33.42 [facility] [address] [id number] 13 Jun, 2017 Dental examination Z01.20 [facility] [id number] [place] [address] 44889 -5763 04 Jun, 2017 Moderate persistent asthma with exacerbation J45.41 [facility] [id number] [place] [address] 73663- 0663 May, Neuropathy G62.9 and Diabetes mellitus E11.9 [facility] [id number] [place] [address] 89825- 0295 Apr, [facility] [id number] [place] [address] 12767 -4264 Apr, Cough R05 [facility] [id number] [place] [address] 45835- 8932 Feb, [facility] [id number] [place] [address] 57641- 7097 Feb, [facility] [id number] [place] [address] 20385- 0096 Feb, Diabetes mellitus E11.9 ; Neuropathy G62.9 ; Joint pain of left hip on movement M25.552 and Encounter for immunization Z23 [facility] [id number] [place] [address] 84734- 8524 Feb, [facility] [id number] [place] [address] 02076- 6986 Feb, Diabetes mellitus E11.9 [facility] [id number] [place] [address] 35909- 8912 Feb, [facility] [id number] [place] [address] 85593- 3605 Jan, [facility] [id number] [place] [address] 49704- 6987 Jan, Secondary hypertension I15.9 [facility] [address] [address] 0430 Dec, Diabetes mellitus E11.9 [facility] [id number] [place] [address] [id number] Nov, Encounter for dental examination Z01.20 [facility] [id number] [place] [address] 86398 -7876 Oct, Allergic contact dermatitis due to plants, except food L23.7 [facility] [id number] [place] [address] 48348- 1805 Oct, [facility] [id number] [place] [address] 37514- 3822 Oct, Diabetes mellitus E11.9 ; PVD (peripheral vascular disease) I73.9 ; Neuropathy G62.9 ; GERD (gastroesophageal reflux disease) K21.9 ; Insomnia G47.00 ; Environmental allergies Z91.09 ; Secondary hypertension I15.9 ; Reactive depression F32.9 ; Hypercholesterolemia E78.00 and Joint pain of left hip on movement M25.552 [facility] [id number] [place] [address] 92917- 3131 Sep, Diabetes mellitus E11.9 [facility] [id number] [place] [address] 38388- 7458 Sep, Diabetes mellitus E11.9 [facility] [id number] [place] [address] 99945- 6990 Sep, Diabetes mellitus E11.9 [facility] [id number] [place] [address] 35576- 7905 Sep, Neuropathy G62.9 [facility] [id number] [place] [address] 36495- 6972 August, [facility] [id number] [place] [address] 52531- 0922 Jul, [facility] [id number] [place] [address] 16344- 2932 Jun, [facility] [address] 04762- 4164 Jun, Diabetes mellitus E11.9 ; PVD (peripheral vascular disease) I73.9 ; Neuropathy G62.9 ; Joint pain of left hip on movement M25.552 ; Renal failure N19 ; Asthma J45.909 ; Reactive depression F32.9 ; Pure hypercholesterolemia, unspecified E78.00 and Insomnia G47.00 [facility] [address] 40398- 7855 Jun, Joint pain of left hip on movement M25.552 and Diabetes mellitus E11.9 [facility] [address] 41951- 7301 Jun, [facility] [address] 23887 -5483 May, Cough R05 and Bronchitis J40 [facility] [address] 78864- 4889 May, [place] [address] 08382- 6459 May, [facility] [address] 84372- 4187 May, Asthma J45.909 and Bronchitis J40 [facility] [address] 25565- 5242 May, [facility] [address] 64586- 5541 May, Bronchitis J40 [facility] [address] 18680- 4094 May, [facility] [address] 57631- 8150 Apr, Diabetes mellitus E11.9 ; PVD (peripheral vascular disease) I73.9 ; GERD (gastroesophageal reflux disease) K21.9 ; Asthma J45.909 ; Insomnia G47.00 ; Environmental allergies Z91.09 ; Secondary hypertension I15.9 ; Joint pain of left hip on movement M25.552 ; Hypercholesterolemia E78.0 and Reactive depression F32.9 [facility] [address] 24542- 2806 14 Mar, 2016 Diabetes mellitus E11.9 ; PVD (peripheral vascular disease) I73.9 and Hypercholesterolemia E78.0 [facility] [address] 33899- 6159 Mar, Diabetes mellitus E11.9 and Hypercholesterolemia E78.0 [facility] [address] 34025- 9835 Mar, [facility] [address] 95552- 2848 Feb, [facility] [address] 30922- 5386 Feb, [place] [address] 50611- 0664 Feb, [facility] [address] 64800- 6648 Jan, Encounter for immunization Z23 [facility] [address] 10941- 8478 Jan, [facility] [address] 07532- 6595 Dec, [facility] [address] 52822- 2590 06 Dec, 2015 Diabetes mellitus E11.9 ; PVD (peripheral vascular disease) I73.9 ; GERD (gastroesophageal reflux disease) K21.9 ; Insomnia G47.00 ; Joint pain of left hip on movement M25.552 ; Asthma J45.909 ; Environmental allergies Z91.09 ; Hypercholesterolemia E78.0 ; Essential hypertension I10 and Neuropathy G62.9 [facility] [id number] [place] [address] 22592- 0317 Nov, [facility] [id number] [place] [address] 87566- 2654 Nov, [facility] [id number] [place] [address] 71502- 2238 Oct, PVD (peripheral vascular disease) I73.9 and Diabetes mellitus E11.9 [facility] [address] 46249- 4435 Sep, Diabetes mellitus E11.9 ; PVD (peripheral vascular disease) I73.9 ; Neuropathy G62.9 ; Joint pain of left hip on movement M25.552 ; GERD ( gastroesophageal reflux disease) K21.9 ; Asthma J45.909 ; Insomnia G47.00 ; Secondary hypertension I15.9 and Hypercholesteremia E78.0 [facility] [address] 01290- 1830 August, [facility] [id number] [place] [address] 00827- 6090 August, Neuropathy G62.9 [facility] [id number] [place] [address] 72106- 5884 August, Neuropathy G62.9 [facility] [id number] [place] [address] 46977- 5966 Jun, Diabetes mellitus E11.9 ; Joint pain of left hip on movement M25.552 ; PVD (peripheral vascular disease) I73.9 ; Neuropathy G62.9 ; GERD (gastroesophageal reflux disease) K21.9 ; Asthma J45.909 ; Insomnia G47.00 ; Environmental allergies Z91.09 ; HTN (hypertension) I10 and Hypercholesteremia E78.0 [facility] [id number] [place] [address] 12160- 5965 Jun, [facility] [id number] [place] [address] 96012- 0811 Jun, [place] [facility] [id number] [place] [address] 97538- 5126 Jun, [facility] [id number] [place] [address] 94666- 8159 Apr, [facility] [id number] [place] [address] 67621- 4916 Apr, [facility] [address] 36054- 6617 Apr, Sinusitis J32.9 [facility] [id number] [place] [address] 82081- 9380 Apr, Neuropathy G62.9 [facility] [id number] [place] [address] 29209- 7446 Mar, [facility] [id number] [place] [address] 56371- 0814 Mar, [facility] [id number] [place] [address] 03777- 5055 Mar, Diabetes mellitus E11.9 ; PVD (peripheral vascular disease) I73.9 ; Neuropathy G62.9 ; GERD (gastroesophageal reflux disease) K21.9 ; Renal failure N19 ; Asthma J45.909 ; Insomnia G47.00 ; Environmental allergies Z91.09 ; Sinusitis J32.9 ; Cough R05 ; Edema R60.9 ; HTN (hypertension) I10 and Hypercholesterolemia E78.0 [facility] [id number] [place] [address] 23257 -9239 Mar, Dysuria R30.0 ; Vomiting, unspecified R11.10 ; Benign essential hypertension I10 and Dizziness R42 [facility] [id number] [place] [address] 83910- 3085 Mar, [facility] [id number] [place] [address] 27893- 2820 Mar, [facility] [id number] [place] [address] 94693- 3777 Feb, [facility] [address] [address]- 3266 Feb, [facility] [id number] [place] [address] 87890- 4482 Feb, [facility] [id number] [place] [address] 74646- 9190 Feb, [facility] [id number] [place] [address] 90848- 6638 Feb, Joint pain of left hip on movement M25.552 ; Lumbago M54.5 and UTI (urinary tract infection) N39.0 [facility] [id number] [place] [address] 32179- 7272 Feb, [facility] [id number] [place] [address] 74843- 7612 Feb, [facility] [id number] [place] [address] 29300- 3729 Jan, [facility] [address] [place] [address] 11310- 7721 Jan, [facility] [id number] [place] [address] 47962- 4580 Jan, [facility] [id number] [place] [address] 15652- 4098 Jan, [facility] [id number] [place] [address] 08681- 9002 Jan, 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 [facility] [id number] [place] [address] 57096- 6867 Dec, Hypertension 401.9 and Diabetes 250.00 [facility] [address] [address]- 2081 Dec, Diabetes 250.00 ; Influenza vaccine administered V04.81 ; Unspecified peripheral vascular disease 443.9 ; Issue of repeat prescriptions V68.1 ; Unspecified hereditary and idiopathic peripheral neuropathy 356.9 ; Insomnia, unspecified 780.52 ; Hypercholesteremia 272.0 ; Pain in joint, site unspecified 719.40 ; Dizziness 780.4 and PCV-13 (PREVNAR) DX V03.82 [facility] [id number] [place] [address] 69415- 9909 Dec, [facility] [id number] [place] [address] 35339- 7543 Dec, [facility] [id number] [place] [address] 81815- 5784 Dec, [facility] [address] 77226- 6833 Dec, [facility] [id number] [place] [address] 11634- 7702 Dec, [facility] [id number] [place] [address] 99068- 2281 Dec, [facility] [id number] [place] [address] 28020- 9866 Nov, [facility] [id number] [place] [address] 45864- 5888 Nov, Environmental allergies V15.09 ; Sacroiliitis, not elsewhere classified 720.2 and Cough 786.2 [facility] [id number] [place] [address] 10354- 5559 Oct, [facility] [id number] [place] [address] 88946- 1011 Oct, [facility] [id number] [place] [address] 35858- 1826 Oct, [facility] [id number] [place] [address] 06107- 6126 Sep, [facility] [id number] [place] [address] 26103- 4053 Sep, [facility] [address] [address]- 7203 Sep, Dysuria 788.1 and Diabetes with other specified manifestations, type II or unspecified type, not stated as uncontrolled 250.80 [facility] [address] [address]- 7242 Sep, [facility] [id number] [place] [address] 68886- 7116 Sep, Diabetes with other specified manifestations, type II or unspecified type, not stated as uncontrolled 250.80 [place] [id number] [place] [address] 51190- 5088 Sep, DM w/o complication type II 250.00 ; Unspecified peripheral vascular disease 443.9 ; Pain in joint, pelvic region and thigh 719.45 ; Asthma , unspecified, unspecified status 493.90 ; Hypercholesteremia 272.0 ; Fatigue 780.79 ; UTI (lower urinary tract infection) 599.0 and Essential hypertension 401.9 [place] [address] [place] [address] 49419- 3747 Sep, [facility] [id number] [place] [address] 11140- 7164 Sep, [facility] [address] [address]- 0148 Sep, [facility] [id number] [place] [address] 49455- 6282 August, [place] [address] [place] [address] 62627- 0629 August, [facility] [id number] [place] [address] 42794- 8292 August, Diabetes with other specified manifestations, type II or unspecified type, not stated as uncontrolled 250.80 [facility] [address] [place] [address] 03772- 5430 Jul, Peripheral vascular disease 443.9 [facility] [place] [facility] [address] [id number] [place] [address]- 0033 14 Jul, 2014 [facility] [place] [facility] [address] [id number] [place] [address]- 6151 13 Jul, 2014 [facility] [place] [facility] [address] [id number] [place] [address]- 4077 27 Jun, 2014 [facility] [place] [facility] [address] [id number] [place] [address]- 4527 27 Jun, 2014 [facility] [place] [facility] [address] [id number] [place] [address]- 7650 14 Jun, 2014 [facility] [place] [facility] [address] [id number] [place] [address]- 6015 Jun, [facility] [place] [facility] [address] [id number] [place] [address]- 9814 Jun, [facility] [place] [facility] [address] [id number] [place] [address]- 6588 Jun, [facility] [place] [facility] [address] [id number] [place] [address]- 3684 Jun, [facility] [place] [facility] [address] [id number] [place] [address]- 5371 Jun, [facility] [place] [facility] [address] [facility] [id number] [place] [address]- 1167 Jun, [facility] [place] [facility] [address] [id number] [address]- 6789 May, [facility] [place] [facility] [address] [id number] [place] [address]- 6613 May, [facility] [place] [facility] [address] [id number] [place] [address]- 5291 24 May, 2014 [facility] [place] [facility] [address] [facility] [id number] [place] [address]- 7859 18 May, 2014 [facility] [place] [facility] [address] [facility] [id number] [place] [address]- 3160 18 May, 2014 [facility] [place] [facility] [address] [id number] [place] [address]- 6656 May, 2014 [facility] [place] [facility] [address] [id number] [place] [address]- 4426 May, 2014 [facility] [place] [facility] [address] [id number] [place] [address]- 0716 May, 2014 [facility] [place] [facility] [address] [id number] [place] [address]- 1507 May, 2014 [facility] [place] [facility] [address] [id number] [place] [address]- 2656 May, 2014 [facility] [place] [facility] [address] [id number] [place] [address]- 2730 May, 2014 [facility] [place] [facility] [address] [id number] [place] [address]- 4802 May, [facility] [place] [facility] [address] [id number] [place] [address]- 2461 May, [facility] [place] [facility] [address] [id number] [place] [address]- 4607 Apr, [facility] [place] [facility] [address] [id number] [place] [address]- 9130 Apr, [facility] [place] [facility] [address] [id number] [place] [address]- 4946 Apr, [facility] [place] [facility] [address] [id number] [place] [address]- 3692 Apr, [facility] [place] [facility] [address] [id number] [place] [address]- 6717 Apr, [facility] [place] [facility] [address] [id number] [place] [address]- 5687 Apr, [facility] [place] [facility] [address] [id number] [place] [address]- 4702 Apr, [facility] [place] [facility] [address] [id number] [place] [address]- 3036 Apr, [facility] [place] [facility] [address] [id number] [place] [address]- 4706 Mar, [facility] [place] [facility] [address] [id number] [place] 9820 Mar, [facility] [place] [facility] [address] [id number] [place] [address]- 4945 Mar, [facility] [place] [facility] [address] [id number] [place] [address]- 8667 Mar, [facility] [place] [facility] [address] [id number] [place] [address]- 1802 Mar, [facility] [place] [facility] [address] [id number] [place] [address]- 2506 Mar, [facility] [place] [facility] [address] [id number] [place] [address]- 8399 Mar, [facility] [place] [facility] [address] [id number] [place] [address]- 1792 Mar, [facility] [place] [facility] [address] [id number] [place] [address]- 3390 Mar, [facility] [place] [facility] [address] [id number] [place] [address]- 8380 Mar, [facility] [place] [facility] [address] [id number] [place] [address]- 1418 Mar, [facility] [place] [facility] [address] [id number] [place] [address]- 9799 Mar, [facility] [place] [facility] [address] [id number] [place] [address]- 2793 Mar, [facility] [place] [facility] [address] [id number] [place] [address]- 1543 Mar, [facility] [place] [facility] [address] [id number] [place] [address]- 7879 Feb, [facility] [place] [facility] [address] [id number] [place] [address]- 9572 Feb, [facility] [place] [facility] [address] [id number] [place] [address] Feb, [facility] [place] [facility] [address] [id number] [place] [address] Feb, [facility] [place] [facility] [address] [id number] [place] [address] Feb, [facility] [place] [facility] [address] [id number] [place] [address] Feb, [facility] [place] [facility] [address] [id number] [place] [address] Feb, [facility] [place] [facility] [address] [id number] [place] [address] Feb, [facility] [place] [facility] [address] [id number] [place] [address] Feb, [facility] [place] [facility] [address] [id number] [place] [address] Feb, [facility] [place] [facility] [address] [facility] [id number] [place] [address] Feb, [facility] [place] [facility] [address] [id number] [place] [address] Feb, [facility] [place] [facility] [address] [id number] [address] Feb, [facility] [place] [facility] [address] [id number] [place] [address] Feb, [facility] [place] [facility] [address] [id number] [place] [address] Feb, [facility] [place] [facility] [address] [id number] [place] [address] Feb, [facility] [place] [facility] [address] [id number] [place] [address] Jan, [facility] [place] [facility] [address] [id number] [place] [address] Jan, [facility] [place] [facility] [address] [id number] [place] [address] Jan, [facility] [place] [facility] [address] [id number] [place] [address] Jan, [facility] [place] [facility] [address] [id number] [place] [address] Jan, [facility] [place] [facility] [address] [id number] [place] [address] Jan, [facility] [place] [facility] [address] [id number] [place] [address] Jan, [facility] [place] [facility] [address] [id number] [place] [address] Jan, [facility] [place] [facility] [address] [id number] [place] [address] Dec, [facility] [place] [facility] [address] [id number] [place] [address] Dec, [facility] [place] [facility] [address] [id number] [place] [address] Nov, [facility] [place] [facility] [address] [id number] [place] [address] Nov, [facility] [place] [facility] [address] [id number] [place] [address] Nov, [facility] [place] [facility] [address] [id number] [place] [address] Nov, [facility] [place] [facility] [address] [id number] [place] [address] Nov, [facility] [place] [facility] [address] [id number] [place] [address] Nov, [facility] [place] [facility] [address] [id number] [place] [address] Oct, [facility] [place] [facility] [address] [id number] [place] [address] Oct, [facility] [place] [facility] [address] [id number] [place] [address] Oct, [facility] [place] [facility] [address] [id number] [place] [address] Oct, [facility] [place] [facility] [address] [id number] [place] [address] Sep, [facility] [place] [facility] [address] [id number] [place] [address] Sep, [facility] [place] [facility] [address] [id number] [place] [address] Sep, [facility] [place] [facility] [address] [id number] [place] [address] Sep, [facility] [place] [facility] [address] [id number] [place] [address] Sep, [facility] [place] [facility] [address] [id number] [place] [address] Sep, [facility] [place] [facility] [address] [id number] [place] [address] August, [facility] [place] [facility] [address] [id number] [place] [address] August, [facility] [place] [facility] [address] [id number] [place] [address] 9[address] August, [facility] [place] [facility] [address] [id number] [place] [address] 7065 August, [facility] [place] [facility] [address] [id number] [place] [address] 8[address] August, [facility] [place] [facility] [address] [id number] [place] [address] August, [facility] [address] [id number] [place] [address] August, [facility] [address] [id number] [place] [address] 0075 August, [facility] [address] [id number] [place] [address] 26[address] August, [facility] [address] [id number] [place] [address] August, [facility] [address] [id number] [place] [address] August, [facility] [address] [id number] [place] [address] 1458 August, [facility] [address] [id number] [place] [address] 1814 Jul, [facility] [address] [id number] [place] [address] 6480 Jul, [facility] [address] [id number] [place] [address] 6286 Jul, [facility] [address] [id number] [place] [address] 5[address] Jul, [facility] [address] [id number] [place] [address] Jul, [facility] [address] [id number] [place] [address] 2136 Jul, [facility] [place] [facility] [address] [id number] [place] [address] 54[address] Jul, [facility] [place] [facility] [address] [id number] [place] [address]- 4558 Jul, [facility] [address] [id number] [place] [address] 5[address] Jul, [facility] [place] [facility] [address] [id number] [place] [address]- 4866 Jul, [facility] [place] [facility] [address] [id number] [place] [address]- 8266 Jul, [facility] [place] [facility] [address] [id number] [place] [address]- 8455 Jun, [facility] [place] [facility] [address] [id number] [place] [address]- 7621 Jun, [facility] [place] [facility] [address] [id number] [place] [address]- 9123 Jun, [facility] [place] [facility] [address] [id number] [place] [address]- 0188 Jun, [facility] [place] [facility] [address] [id number] [place] [address]- 2739 Jun, [facility] [place] [facility] [address] [id number] [place] [address]- 4120 Jun, [facility] [place] [facility] [address] [id number] [place] [address]- 2064 Jun, [facility] [place] [facility] [address] [id number] [place] [address]- 7527 Jun, [facility] [place] [facility] [address] [id number] [place] [address]- 7779 Jun, [facility] [place] [facility] [address] [id number] [place] [address]- 2860 May, [facility] [place] [facility] [address] [id number] [place] [address]- 3536 May, [facility] [place] [facility] [address] [id number] [place] [address]- 6056 May, [facility] [place] [facility] [address] [id number] [place] [address]- 3502 Apr, [facility] [place] [facility] [address] [id number] [place] [address]- 2246 Apr, [facility] [place] [facility] [address] [id number] [place] [address]- 3437 Apr, [facility] [place] [facility] [address] [id number] [place] [address]- 9400 Apr, [facility] [place] [facility] [address] [id number] [place] [address]- 4754 Apr, [facility] [place] [facility] [address] [id number] [place] [address]- 1023 Apr, [facility] [place] [facility] [address] [id number] [place] [address]- 9333 Apr, [facility] [place] [facility] [address] [id number] [place] [address]- 4239 Apr, [facility] [place] [facility] [address] [id number] [place] [address]- 6418 Mar, [facility] [place] [facility] [address] [id number] [place] [address]- 7527 Mar, [facility] [place] [facility] [address] [id number] [place] [address]- 6227 Feb, [facility] [place] [facility] [address] [facility] [id number] [place] [address]- 9592 Feb, [facility] [place] [facility] [address] [id number] [place] [address] Jan, [facility] [place] [facility] [address] [id number] [address]- 38[address] Jan, [facility] [place] [facility] [address] [id number] [place] [address]- 3107 Jan, [facility] [place] [facility] [address] [id number] [place] [address]- 6386 Jan, [facility] [place] [facility] [address] [id number], [place] [address]- 9129 24 Jan, 2013 [facility] [place] [facility] [address] [id number] [place] [address]- 8673 24 Jan, 2012 [facility] [place] [facility] [address] [id number] [place] [address]- 3238 Jan, 2012 [facility] [place] [facility] [address] [id number] [place] [address]- 2629 21 Jan, 2012 [facility] [place] [facility] [address] [id number] [place] [address]- 6746 17 Jan, 2012 [facility] [place] [facility] [address] [id number] [place] [address]- 9807 17 Jan, 2012 [facility] [place] [facility] [address] [id number] [place] [address]- 3154 14 Jan, 2012 [facility] [place] [facility] [address] [id number] [place] [address]- 8893 14 Jan, 2012 [facility] [place] [facility] [address] [id number] [place] [address]- 5695 10 Jan, 2012 [facility] [place] [facility] [address] [id number] [place] [address]- 3081 10 Jan, 2012 [facility] [place] [facility] [address] [id number] [place] [address]- 2448 10 Jan, 2012 [facility] [place] [facility] [address] [id number] [place] [address]- 7555 10 Jan, 2012 [facility] [place] [facility] [address] [id number] [place] [address]- 6151 09 Jan, 2012 [facility] [place] [facility] [address] [id number] [place] [address]- 7028 09 Jan, 2012 [facility] [place] [facility] [address] [id number] [place] [address]- 5893 08 Jan, 2012 [facility] [place] [facility] [address] [id number] [place] [address]- 5398 07 Jan, 2012 [facility] [place] [facility] [address] [id number] [place] [address]- 0829 Jan, [facility] [place] [facility] [address] [id number] [place] [address]- 7212 Jan, [facility] [place] [facility] [address] [id number] [place] [address]- 6420 Jan, [facility] [place] [facility] [address] [id number] [place] [address] 2548 Dec, [facility] [place] [facility] [address] [id number] [place] [address]- 2637 Dec, [facility] [place] [facility] [address] [id number] [place] [address]- 5160 Nov, [facility] [place] [facility] [address] [id number] [place] [address]- 8654 Oct, [facility] [place] [facility] [address] [id number] [place] [address]- 1905 Oct, [facility] [place] [facility] [address] [id number] [address]- 2588 Oct, [facility] [place] [facility] [address] [id number] [place] [address]- 2976 Oct, [facility] [place] [facility] [address] [id number] [place] [address]- 5990 Oct, [facility] [place] [facility] [address] [id number] [address]- 7490 Oct, [facility] [place] [facility] [address] [id number] [address]- 0614 Sep, [facility] [place] [facility] [address] [id number] [place] [address]- 0143 Sep, [facility] [place] [facility] [address] [id number], [place] [address]- 1619 Sep, [facility] [place] [facility] [address] [id number] [place] [address]- 0620 Jul, [facility] [place] [facility] [address] [id number] [place] [address]- 6466 Jul, [facility] [address] [id number] [place] [address]- 6052 Jul, [facility] [address] [id number] [place] [address]- 6228 Jun, [facility] [address] [id number] [place] [address]- 3846 Jun, [facility] [address] [id number] [place] [address]- 3175 Jun, [facility] [address] [id number] [place] [address]- 3573 Jun, [facility] [address] [id number] [place] [address]- 6057 Jun, [facility] [address] [id number] [place] [address]- 0913 Jun, [facility] [address] [id number] [place] [address]- 8622 May, [facility] [address] [id number] [place] [address]- 7321 May, [facility] [address] [id number] [place] [address]- 7315 Apr, [facility] [address] [id number] [place] [address]- 9826 Apr, [facility] [address] [id number] [place] [address]- 6643 Apr, [facility] [place] [facility] [address] [id number] [place] [address]- 5546 Apr, [facility] [place] [facility] [address] [id number] [place] [address]- 8876 Apr, [facility] [address] [id number] [place] [address]- 2964 Mar, [facility] [place] [facility] [address] [id number] [place] [address]- 8016 31 Mar, 2012 [facility] [place] [facility] [address] [id number] [place] [address]- 6796 Mar, [facility] [place] [facility] [address] [id number] [place] [address]- 0718 Mar, [facility] [place] [facility] [address] [id number] [place] [address]- 7556 Mar, [facility] [place] [facility] [address] [id number] [place] [address]- 7187 14 Mar, 2012 [facility] [place] [facility] [address] [id number] [place] [address]- 2920 Mar, [facility] [place] [facility] [address] [id number] [place] [address]- 6439 Mar, [facility] [place] [facility] [address] [id number] [place] [address]- 3091 Mar, [facility] [place] [facility] [address] [id number] [place] [address]- 6965 Mar, [facility] [place] [facility] [address] [id number] [place] [address]- 9305 Feb, [facility] [place] [facility] [address] [id number] [place] [address]- 0997 Feb, [facility] [place] [facility] [address] [id number], [place] [address]- 2429 Feb, [facility] [place] [facility] [address] [id number] [place] [address]- 6244 Feb, [facility] [place] [facility] [address] [id number] [place] [address]- 2979 Feb, [facility] [place] [facility] [address] [facility] [id number] 3746 Feb, [facility] [place] [facility] [address] [id number], [place] [address]- 5293 Feb, [facility] [place] [facility] [address] [id number] [place] [address]- 9630 Feb, [facility] [place] [facility] [address] [id number] [place] [address]- 7143 Feb, [facility] [place] [facility] [address] [facility] [id number] [place] [address]- 0572 Feb, [facility] [place] [facility] [address] [id number] [place] [address]- 9659 Jan, [facility] [place] [facility] [address] [id number] [place] [address]- 9457 Jan, [facility] [place] [facility] [address] [facility] [id number] [place] [address]- 3429 Jan, [facility] [place] [facility] [address] [id number] [address]- 1026 Jan, [facility] [place] [facility] [address] [facility] [id number] [place] [address]- 6284 28 Sep2011 [facility] [place] [facility] [address] [facility] [id number] [place] [address]- 6397 25 Sep2011 [facility] [place] [facility] [address] [facility] [id number] [place] [address]- 5242 18 Sep2011 [facility] [place] [facility] [address] [facility] [id number] [address]- 3062 18 Sep2011 [facility] [place] [facility] [address] [facility] [id number] [address]- 2540 17 Sep, 2011 [facility] [place] [facility] [address] [id number] [place] [address]- 8829 14 Sep2011 [facility] [place] [facility] [address] [facility] [id number] [place] [address]- 2542 13 Sep2011 [facility] [place] [facility] [address] [facility] [id number] [place] [address]- 6739 13 Sep, 2011 [facility] [place] [facility] [address] [id number] [place] [address]- 8515 Dec, [facility] [place] [facility] [address] [id number] [place] [address]- 7895 Nov, [facility] [place] [facility] [address] [id number] [place] [address]- 7126 Nov, [facility] [place] [facility] [address] [id number] [place] [address]- 3403 Nov, [facility] [place] [facility] [address] [id number] [place] [address]- 2550 Nov, [facility] [place] [facility] [address] [id number] [place] [address]- 1797 Sep, [facility] [place] [facility] [address] [id number] [place] [address]- 2986 Sep, [facility] [place] [facility] [address] [id number] [place] [address]- 4634 Sep, [facility] [place] [facility] [address] [id number] [place] [address]- 7664 August, [facility] [place] [facility] [address] [id number] [place] [address]- 6150 August, [facility] [place] [facility] [address] [id number] [place]149 August, [facility] [place] [facility] [address] [id number] [place] [address]- 7913 August, [facility] [place] [facility] [address] [id number] [place] [address]- 6777 August, [facility] [place] [facility] [address] [id number] [place] [address]- 7634 August, [facility] [place] [facility] [address] [id number] [place] [address]- 2306 August, [facility] [place] [facility] [address] [id number] [place] [address]- 4569 August, [facility] [place] [facility] [address] [id number] [place] [address]- 4520 August, [facility] [place] [facility] [address] [id number] [place] [address]- 8251 Jul, [facility] [place] [facility] [address] [id number] [place] [address]- 6513 Jun, [facility] [place] [facility] [address] [id number] [place] [address]- 9064 16 Jun, 2011 [facility] [place] [facility] [address] [id number] [place] [address]- 2553 Jun, [facility] [place] [facility] [address] [id number] [place] [address]- 5929 Jun, [facility] [place] [facility] [address] [id number] [place] [address]- 2133 Jun, [facility] [place] [facility] [address] [id number] [place] [address]- 4140 Jun, [facility] [place] [facility] [address] [id number] [place] [address]- 9477 Jun, [facility] [place] [facility] [address] [id number] [place] [address]- 3686 Jun, [facility] [place] [facility] [address] [id number] [place] [address]- 8026 May, [facility] [place] [facility] [address] [id number] [place] [address]- 3479 May, [facility] [place] [facility] [address] [id number] [place] [address]- 7918 May, [facility] [place] [facility] [address] [id number] [place] [address]- 3125 May, [facility] [place] [facility] [address] [id number] [place] [address]- 6336 May, [facility] [place] [facility] [address] [id number] [place] [address]- 1966 16 May, [address] [facility] [address] [id number] [place] [address]- 6636 14 May, 2011 [facility] [address] [id number] [place] [address] 2546 19 Apr, [address] [facility] [address] [id number] [place] [address]- 1046 16 Apr, 2011 [facility] [address] [id number] [place] [address]- 5486 13 Apr, 2011 [facility] [address] [id number] [place] [address]- 5921 Apr, [facility] [address] [id number] [place] [address]- 6946 10 Apr, 2011 [facility] [address] [id number] [place] [address]- 2598 Apr, [facility] [address] [id number] [place] [address]- 4425 Apr, [facility] [address] [id number] [place] [address]- 4551 Apr, [facility] [address] [id number] [place] [address]- 4946 29 Mar, 2011 [facility] [address] [id number] [place] [address]- 1226 Mar, [facility] [address] [id number] [place] [address]- 0427 28 Feb, 2011 [facility] [place] [facility] [address] [id number] [place] [address]- 6056 Feb, [facility] [place] [facility] [address] [id number] [place] [address]- 2546 17 Feb, [address] [facility] [address] [id number] [place] [address]- 1371 Feb, [facility] [place] [facility] [address] [id number] [place] [address]- 0308 16 Feb, 2011 [facility] [place] [facility] [address] [id number] [place] [address]- 2733 24 Jan, 2011 [facility] [place] [facility] [address] [id number] [place] [address]- 1571 12 Nov, 2010 [facility] [place] [facility] [address] [id number] [place] [address]- 5767 14 Sep, 2010 [facility] [place] [facility] [address] [id number] [place] [address]- 0883 August, [facility] [place] [facility] [address] [id number] [place] [address] 16 Jun, 2010 [facility] [place] [facility] [address] [id number] [place] [address] 14 May, 2010 [facility] [place] [facility] [address] [id number] [place] [address] 18 Apr, 2010 [facility] [place] [facility] [address] [id number] [place] [address] 22 Mar, 2010 [facility] [place] [facility] [address] [id number] [place] [address] 14 Mar, 2010 [facility] [place] [facility] [address] [id number] [place] [address] 14 Mar, 2010 [facility] [place] [facility] [address] [id number] [address] 12 Feb, 2010 [facility] [place] [facility] [address] [id number] [place] [address] 12 Feb, 2010 [facility] [place] [facility] [address] [id number] [place] [address] 12 Jan, 2010 [facility] [place] [facility] [address] [id number] [place] [address] 11 Jan, 2010 [facility] [place] [facility] [address] [facility] [id number] [address] 11 Jan, 2010 [facility] [address] [id number] [address] Oct, [facility] [address] [id number] [address] Oct, [facility] [id number] [address] Apr, [facility] [id number] [address] Mar, [facility] [id number] [address] Mar, [facility] [id number] [address] Jan, [facility] [address] [id number], [place] [address] Dec, IMMUNIZATIONS No Known Immunizations SOCIAL HISTORY Never Assessed REASON FOR VISIT PLAN OF CARE VITAL SIGNS MEDICATIONS Medication Instructions Dosage Frequency Start Date End Date Duration Status Pen [place] 32G X 4 MM subcutaneously 2 times a day use to Inject insulin 12h Feb, Active RESULTS No Results PROCEDURES No Known [...]
--- OUTSIDE RECORDS SUMMARY | 2018-02-13 03:59 | XMS REPORT ---
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 Phone VASQUEZ PAZ CP Unavailable Allergies, Adverse Reactions, Alerts Substance Reaction Event Type Stadol Info Not Available Drug Allergy Glucotrol Info Not Available Drug Allergy Problems Problem Type Condition Code Onset Dates Condition Status Problem Insomnia G47.00 Active Problem Renal failure N19 Active Problem Asthma J45.909 Active Problem Diabetes mellitus E11.9 Active Problem PVD (peripheral vascular disease) I73.9 Active Problem 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 Problem Joint pain of left hip on movement M25.552 Active Problem GERD (gastroesophageal reflux disease) K21.9 Active Problem Neuropathy G62.9 Active Problem Proteinuria R80.9 Active Assessment Diabetes mellitus E11.9 Active Assessment PVD (peripheral vascular disease) I73.9 Active Problem Environmental allergies Z91.09 Active Medications Medication Code System Code Instructions Start Date End Date Status Dosage Diclofenac Sodium [facility] 87736109215 [address]MG [address] Orally Three times a day 1 tablet Zofran ODT [facility] [address]-90 8 mg June 30, 2014 1 tablet by Oral route every 8 hours PRN nausea or vomiting Norvasc [facility] 83613067408 5 MG Orally 2 times a day 1 tablet by Oral route 2 times per day Gabapentin [facility] [address]-99 300 MG Orally 3 times a day July 01, 2014 1 capsule by Oral route 3 times per day Pen [place] [facility] [address]-68 31G X 6 MM 2 times a day Mar 15, 2015 as directed Atenolol [facility] [address]-34 100 MG orally once July 01, 2014 1 tablet by Oral route 1 time per day Albuterol Sulfate [facility] [address]-98 90 mcg/actuation September 10, 2011 2 puffs by Inhalation route every 4-6 hours as needed PRNcough or wheezing Hydrochlorothiazide [facility] [address]-63 50 MG Orally Once a day Apr 18, 2015 1 tablet Vytorin [facility] [address]-85 10-40 MG Orally Once a day 1 tablet Flonase [facility] [address]-26 50 MCG/ACT Nasally Once a day Mar 15, 2015 1 spray in each nostril amitriptyline [facility] 0 150 mg by oral route Once a day July 01, 2014 1 tablet Levemir [facility] [address]-40 100 UNIT/ML Subcutaneous 2 times a day Jun 02, 2014 inject 25 unit in am and pm Metformin HCl [facility] 88580134748 1000MG Orally Twice a day 1 tablet with meals Procedures Procedure Coding System Code Date Office Visit, Est Pt., Level 2 CPT-4 35800 November 14, 2015 [facility] VISIT ESTABLISHED PATIENT CPT-4 G0467 November 14, 2015 Vital Signs Date/Time: November 14, 2015 Cardiac Monitoring Heart Rate 82 bpm Weight 133.8 lbs Height 63 in BMI 23.70 Index Blood Pressure Diastolic 76 mmHg Blood Pressure Systolic 131 mmHg Results No Known Results Summary Purpose eClinicalWorks Submission
--- OUTSIDE RECORDS SUMMARY | 2018-02-13 03:59 | XMS REPORT ---
Author Author NICHELLE VALENZUELA Organization [facility] Address [address] [place] [address] Care Team Providers Care Nursing Specialist Name Role Phone NICHELLE VALENZUELA Unavailable PROBLEMS Type Condition ICD9-CM Code [id number] Code Onset Dates Condition Status SNOMED Code Problem PVD (peripheral vascular disease) I73.9 Active 554752663 Problem Insomnia G47.00 Active 944231673 Problem Diabetes mellitus E11.9 Active 63205378 Problem Encounter for dental examination Z01.20 Active 631886505 Problem Bronchitis J40 Active 00883132 Problem Asthma J45.909 Active 031257920 Problem GERD (gastroesophageal reflux disease) K21.9 Active 941749702 Problem Reactive depression F32.9 Active 00372042 Problem Secondary hypertension I15.9 Active 96424826 Problem Renal failure N19 Active 01209032 Problem Joint pain of left hip on movement M25.552 Active 234255072 Problem Hypercholesterolemia E78.00 Active 34026072 Problem Proteinuria R80.9 Active 28632157 Problem Environmental allergies Z91.09 Active 405666706 Problem Neuropathy G62.9 Active 807749193 ALLERGIES No Known Allergies SOCIAL HISTORY No smoking Hx information available PLAN OF CARE VITAL SIGNS MEDICATIONS No Known Medications RESULTS No Results PROCEDURES No Known procedures IMMUNIZATIONS No Known Immunizations
--- OUTSIDE RECORDS SUMMARY | 2018-02-13 04:01 | XMS REPORT ---
Author Author NICHELLE VALENZUELA [facility] eClinicalWorks Address Unknown Phone Unavailable Care Team Providers Care Day Guard Name Role Phone NICHELLE VALENZUELA Unavailable Allergies [...] Instructions Start Date End Date Status Dosage Permethrin [facility] [address]-65 5 % Externally once daily Jan 24, 2015Feb to affected areas Results No Known Results Summary Purpose eClinicalWorks Submission
--- OUTSIDE RECORDS SUMMARY | 2018-02-13 04:01 | XMS REPORT ---
Author Author NADIYA CARMONA Organization [facility] Address [address] [place] [address] Care Team Providers Care Otolaryngology Rep Name Role Phone NDAIYA CARMONA Unavailable PROBLEMS Type Condition ICD9-CM Code KYM56-FQ Code Onset Dates Condition Status SNOMED Code Problem Asthma J45.909 Active 132424680 Problem Reactive depression F32.9 Active 37295263 Problem Secondary hypertension I15.9 Active 01907087 Problem Open bite of left hand, initial encounter S61.452A Active 208944565 Problem Bitten by cat, initial encounter W55.01XA Active 666956342 Problem Moderate persistent asthma with exacerbation J45.41 Active 328025398 Problem Bronchitis J40 Active 66663819 Problem Simple chronic bronchitis J41.0 Active 68929576 Problem Recurrent major depressive disorder, in full remission F33.42 Active 943719043 Problem Renal failure N19 Active 76553741 Problem Joint pain of left hip on movement M25.552 Active 431938916 Problem Hypercholesterolemia E78.00 Active 49080625 Problem Environmental allergies Z91.09 Active 681859358 Problem PVD (peripheral vascular disease) I73.9 Active 038469842 Problem Diabetes mellitus E11.9 Active 69730564 Problem Proteinuria R80.9 Active 80375268 Problem Insomnia G47.00 Active 721436793 Problem Neuropathy G62.9 Active 898285041 Problem GERD (gastroesophageal reflux disease) K21.9 Active 707501450 ALLERGIES No Information ENCOUNTERS Encounter Location Date Diagnosis [facility] [id number], [place] [address] Sep, [facility] [address], [place] [address] August, Neuropathy G62.9 [facility] [id number], [place] [address] August, Open bite of left hand, initial encounter S61.452A ; Encounter for immunization Z23 and Bitten by cat, initial encounter W55.01XA [place] [address] [address] Jul, Environmental allergies Z91.09 [place] [address] [address]67- [address] Jun, [place] [address] [address]- [address]28 Jun, Simple chronic bronchitis J41.0 ; PVD (peripheral vascular disease) I73.9 and Recurrent major depressive disorder, in full remission F33.42 [facility] [address] [id number] Jun, 2017 Dental examination Z01.20 [facility] [address] [address] Jun, Moderate persistent asthma with exacerbation J45.41 [place] [address] [address]- [address] May, Neuropathy G62.9 and Diabetes mellitus E11.9 [place] [address] [address]25- 278[address] Apr, [facility] [address] [address] Apr, Cough R05 [place] [address] [address]- 68[address] Feb, [place] [address] [address]- 9971 Feb, [place] [address] [address]- 9465 Feb, Diabetes mellitus E11.9 ; Neuropathy G62.9 ; Joint pain of left hip on movement M25.552 and Encounter for immunization Z23 [place] [address] [address]- [address] Feb, [facility] [address], [place] [address] Feb, Diabetes mellitus E11.9 [facility] [id number] [place] [address]75- 1948 Feb, [facility] [id number] [place] [address] 24921- 3942 Jan, [facility] [id number] [place] [address] 45975- 7391 Jan, Secondary hypertension I15.9 [facility] [id number] [place] [address] 94065- 6973 Dec, Diabetes mellitus E11.9 [facility] [id number] [place] [id number] Nov, Encounter for dental examination Z01.20 [facility] [id number] [place] [address] Oct, Allergic contact dermatitis due to plants, except food L23.7 [facility] [id number] [place] [address] 62135- 7442 Oct, [facility] [id number] [place] [address] 01184- 7819 Oct, Diabetes mellitus E11.9 ; PVD (peripheral vascular disease) I73.9 ; Neuropathy G62.9 ; GERD (gastroesophageal reflux disease) K21.9 ; Insomnia G47.00 ; Environmental allergies Z91.09 ; Secondary hypertension I15.9 ; Reactive depression F32.9 ; Hypercholesterolemia E78.00 and Joint pain of left hip on movement M25.552 [facility] [id number] [place] [address] 15948- 8367 Sep, Diabetes mellitus E11.9 [facility] [id number] [place] [address] 92529- 7421 Sep, Diabetes mellitus E11.9 [facility] [id number] [place] [address] 37968- 9170 Sep, Diabetes mellitus E11.9 [facility] [id number] [place] [address] 11411- 5475 Sep, Neuropathy G62.9 [facility] [id number] [place] [address] 82049- 5026 August, [facility] [address] 07650- 5898 Jul, [facility] [id number] [place] [address] 95459- 5713 Jun, [place] [address] 71628- 8769 Jun, Diabetes mellitus E11.9 ; PVD (peripheral vascular disease) I73.9 ; Neuropathy G62.9 ; Joint pain of left hip on movement M25.552 ; Renal failure N19 ; Asthma J45.909 ; Reactive depression F32.9 ; Pure hypercholesterolemia, unspecified E78.00 and Insomnia G47.00 [place] [id number] [place] [address] 11552- 2210 Jun, Joint pain of left hip on movement M25.552 and Diabetes mellitus E11.9 [facility] [id number] [place] [address] 41526- 8313 Jun, [facility] [id number] [place] [address] 77406 -0860 May, Cough R05 and Bronchitis J40 [facility] [id number] [place] [address] 02802- 1433 May, [facility] [id number] [place] [address] 08539- 0649 May, [facility] [id number] [place] [address] 42906- 0657 May, Asthma J45.909 and Bronchitis J40 [place] [id number] [place] [address] 46683- 8165 07 May, 2016 [facility] [address] 0[address]64- 3326 07 May, 2016 Bronchitis J40 [facility] [address] 91027- 1434 06 May, 2016 [facility] [address] 27219- 2192 Apr, Diabetes mellitus E11.9 ; PVD (peripheral vascular disease) I73.9 ; GERD (gastroesophageal reflux disease) K21.9 ; Asthma J45.909 ; Insomnia G47.00 ; Environmental allergies Z91.09 ; Secondary hypertension I15.9 ; Joint pain of left hip on movement M25.552 ; Hypercholesterolemia E78.0 and Reactive depression F32.9 [place] [address] [address]15- 0918 Mar, Diabetes mellitus E11.9 ; PVD (peripheral vascular disease) I73.9 and Hypercholesterolemia E78.0 [place] [id number] [place] [address] 41126- 7375 Mar, Diabetes mellitus E11.9 and Hypercholesterolemia E78.0 [place] [address] 78175- 2677 Mar, [place] [address] 42230- 6950 Feb, [place] [id number] [place] [address] 83262- 0237 18 Feb, 2016 [place] [address] 82026- 4489 Feb, [facility] [address] 77178- 7251 31 Jan, 2016 Encounter for immunization Z23 [place] [address] 55619- 9915 Jan, [place] [id number] [place] [address] 51090- 8546 Dec, [place] [address] 98084- 4775 Dec, Diabetes mellitus E11.9 ; PVD (peripheral vascular disease) I73.9 ; GERD (gastroesophageal reflux disease) K21.9 ; Insomnia G47.00 ; Joint pain of left hip on movement M25.552 ; Asthma J45.909 ; Environmental allergies Z91.09 ; Hypercholesterolemia E78.0 ; Essential hypertension I10 and Neuropathy G62.9 [place] [address] 21394- 6234 Nov, [place] [address] 12133- 2741 Nov, [place] [address] 80566- 8860 Oct, PVD (peripheral vascular disease) I73.9 and Diabetes mellitus E11.9 [place] [id number] [place] [address] 68889- 7514 Sep, Diabetes mellitus E11.9 ; PVD (peripheral vascular disease) I73.9 ; Neuropathy G62.9 ; Joint pain of left hip on movement M25.552 ; GERD ( gastroesophageal reflux disease) K21.9 ; Asthma J45.909 ; Insomnia G47.00 ; Secondary hypertension I15.9 and Hypercholesteremia E78.0 [place] [id number] [place] [address] 41666- 5889 August, [place] [id number] [place] [address] 58611- 4386 August, Neuropathy G62.9 [place] [id number] [place] [address] 58432- 1214 August, Neuropathy G62.9 [place] [address] 22994- 5217 Jun, Diabetes mellitus E11.9 ; Joint pain of left hip on movement M25.552 ; PVD (peripheral vascular disease) I73.9 ; Neuropathy G62.9 ; GERD (gastroesophageal reflux disease) K21.9 ; Asthma J45.909 ; Insomnia G47.00 ; Environmental allergies Z91.09 ; HTN (hypertension) I10 and Hypercholesteremia E78.0 [place] [address] 19870- 9010 Jun, [place] [address] 57686- 0916 Jun, [place] [address] 56574- 3604 Jun, [place] [address] 15077- 9880 Apr, [place] [address] 89807- 1881 Apr, [place] [id number] [place] [address] 05264- 0854 Apr, Sinusitis J32.9 [place] [address] 65794- 7889 Apr, Neuropathy G62.9 [place] [id number] [place] [address] 51337- 3350 Mar, [place] [id number] [place] [address] 66620- 9635 Mar, [place] [id number] [place] [address] 12018- 2613 Mar, Diabetes mellitus E11.9 ; PVD (peripheral vascular disease) I73.9 ; Neuropathy G62.9 ; GERD (gastroesophageal reflux disease) K21.9 ; Renal failure N19 ; Asthma J45.909 ; Insomnia G47.00 ; Environmental allergies Z91.09 ; Sinusitis J32.9 ; Cough R05 ; Edema R60.9 ; HTN (hypertension) I10 and Hypercholesterolemia E78.0 [facility] [address], [place] [address] Mar, Dysuria R30.0 ; Vomiting, unspecified R11.10 ; Benign essential hypertension I10 and Dizziness R42 [facility] [address], [place] [address]- 5[address] Mar, [facility] [id number] [place] [address] 83834- 8044 Mar, [facility] [id number] [place] [address] 37086- 6896 Feb, [facility] [id number] [place] [address] 28415- 7747 Feb, [facility] [id number] [place] [address] 17384- 0029 Feb, [facility] [id number] [place] [address] 41965- 2826 Feb, [facility] [id number] [place] [address] 90443- 1853 Feb, Joint pain of left hip on movement M25.552 ; Lumbago M54.5 and UTI (urinary tract infection) N39.0 [facility] [address], [place] [address]- 8624 Feb, [facility] [id number] [place] [address] 20361- 0298 Feb, [facility] [id number] [place] [address] 58699- 0650 Jan, [facility] [id number] [place] [address] 30851- 4775 Jan, [facility] [address], [place] [address]- 9752 Jan, [facility] [address] [place] [address] [address]- 0656 Jan, [facility] [address] 85836- 8512 Jan, 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 [facility] [address] 91042- 1633 30 Dec, 2014 Hypertension 401.9 and Diabetes 250.00 [facility] [address] 07139- 1523 Dec, Diabetes 250.00 ; Influenza vaccine administered V04.81 ; Unspecified peripheral vascular disease 443.9 ; Issue of repeat prescriptions V68.1 ; Unspecified hereditary and idiopathic peripheral neuropathy 356.9 ; Insomnia, unspecified 780.52 ; Hypercholesteremia 272.0 ; Pain in joint, site unspecified 719.40 ; Dizziness 780.4 and PCV-13 (PREVNAR) DX V03.82 [place] [address] 23665- 5481 Dec, [facility] [address] 62704- 3731 Dec, [facility] [address] 29084- 9917 Dec, [facility] [address] 13376- 6780 Dec, [facility] [address] 01604- 7140 Dec, [facility] [address] 40764- 1466 Dec, [facility] [address] 76811- 2121 Nov, [facility] [address] 69878- 1008 Nov, Environmental allergies V15.09 ; Sacroiliitis, not elsewhere classified 720.2 and Cough 786.2 [place] [address], [place] [address]- 6110 Oct, [facility] [address], [place] [address]- 1071 Oct, [facility] [address], [place] [address]- 0423 Oct, [facility] [address] [place] [address] 76665- 5283 Sep, [facility] [address] [place] [address] 43950- 5057 Sep, [facility] [address] [place] [address] 14310- 3501 Sep, Dysuria 788.1 and Diabetes with other specified manifestations, type II or unspecified type, not stated as uncontrolled 250.80 [facility] [id number] [place] [address] 56719- 2595 Sep, [facility] [address], [place] [address]- 4613 Sep, Diabetes with other specified manifestations, type II or unspecified type, not stated as uncontrolled 250.80 [facility] [address], [place] [address]- 2541 Sep, DM w/o complication type II 250.00 ; Unspecified peripheral vascular disease 443.9 ; Pain in joint, pelvic region and thigh 719.45 ; Asthma , unspecified, unspecified status 493.90 ; Hypercholesteremia 272.0 ; Fatigue 780.79 ; UTI (lower urinary tract infection) 599.0 and Essential hypertension 401.9 [facility] [address], [place] [address]- 7681 Sep, [facility] [address], [place] [address]- 5544 Sep, [facility] [address], [place] [address]- 4927 Sep, [facility] [id number], [place] [address]- 2138 August, [facility] [address], [place] [address]- 3465 August, [facility] [address], [place] [address]- 6671 August, Diabetes with other specified manifestations, type II or unspecified type, not stated as uncontrolled 250.80 [facility] [address] [facility] [id number] [place] [address]- 0791 Jul, Peripheral vascular disease 443.9 [facility] [address] [place] [address], [place] [address]- 3741 Jul, [facility] [address], [place] [address]- 7990 Jul, [facility] [address], [place] [address]- 3772 Jun, [facility] [address], [place] [address]- 8520 Jun, [facility] [address], [place] [address]- 8583 Jun, [facility] [address], [place] [address]- 4191 Jun, [facility] [address], [place] [address]- 8607 Jun, [facility] [id number], [place] [address]- 1363 Jun, [facility] [address], [place] [address]- 2211 Jun, [facility] [address] [facility] [id number] 4662 Jun, [facility] [address], [place] [address]- 7336 Jun, [facility] [place] [facility] [address] [id number] [place] [address]- 3268 May, 2014 [facility] [place] [facility] [address] [id number] [place] [address]- 5966 May, 2014 [facility] [place] [facility] [address] [facility] [id number] [place] [address]- 7189 May, 2014 [facility] [place] [facility] [address] [id number] [place] [address]- 9993 May, 2014 [facility] [place] [facility] [address] [id number] [place] [address]- 9721 May, 2014 [facility] [place] [facility] [address] [facility] [id number] [place] 3546 May, 2014 [facility] [place] [facility] [address] [facility] [id number] [place] [address]- 7924 May, 2014 [facility] [place] [facility] [address] [facility] [id number] [place] [address]- 3353 May, 2014 [facility] [place] [facility] [address] [facility] [id number] [place] [address]- 8366 May, 2014 [facility] [place] [facility] [address] [facility] [id number] [place] [address]- 8289 May, 2014 [facility] [place] [facility] [address] [facility] [id number] [place] [address]- 0526 May, 2014 [facility] [place] [facility] [address] [facility] [id number] [place] [address]- 0538 May, [facility] [place] [facility] [address] [facility] [id number] [place] [address]- 9652 May, 2014 [facility] [place] [facility] [address] [facility] [id number] [place] [address]- 8030 Apr, [facility] [place] [facility] [address] [facility] [id number] [place] [address]- 9004 Apr, [facility] [place] [facility] [address] [id number] [place] [address]- 4619 Apr, [facility] [place] [facility] [address] [id number] [place] [address]- 9708 Apr, [facility] [place] [facility] [address] [id number] [place] [address]- 0236 Apr, [facility] [place] [facility] [address] [id number] [place] [address]- 2177 Apr, [facility] [place] [facility] [address] [id number] [place] [address]- 0238 Apr, [facility] [place] [facility] [address] [id number] [place] [address]- 6786 Apr, [facility] [place] [facility] [address] [id number] [place] [address]- 6663 Mar, [facility] [place] [facility] [address] [id number] [place] [address]- 3117 Mar, [facility] [place] [facility] [address] [id number] [place] [address]- 6151 Mar, [facility] [place] [facility] [address] [id number] [place] [address]- 7452 Mar, [facility] [place] [facility] [address] [id number] [place] [address]- 8071 Mar, [facility] [place] [facility] [address] [id number], [place] [address]- 8398 Mar, [facility] [place] [facility] [address] [id number] [place] 2382 Mar, [facility] [place] [facility] [address] [id number] [place] [address]- 1741 Mar, [facility] [place] [facility] [address] [id number] [place] [address]- 9141 Mar, [facility] [place] [facility] [address] [id number], [place] [address]- 4445 Mar, [facility] [place] [facility] [address] [id number] [place] [address]- 3111 Mar, [facility] [place] [facility] [address] [id number] [place] [address]- 4068 Mar, [facility] [place] [facility] [address] [facility] [id number] [place] [address]- 7179 Mar, [facility] [place] [facility] [address] [id number] [place] [address]- 5609 Mar, [facility] [place] [facility] [address] [id number] [place] [address]- 7853 Feb, [facility] [place] [facility] [address] [id number] [place] [address]- 5952 Feb, [facility] [place] [facility] [address] [id number] [place] [address]- 4665 Feb, [facility] [place] [facility] [address] [id number] [place] [address]- 6466 Feb, [facility] [place] [facility] [address] [id number] [place] [address]- 0440 Feb, [facility] [place] [facility] [address] [facility] [id number] [place] [address]- 1261 Feb, [facility] [place] [facility] [address] [id number] [place] [address]- 1609 Feb, [facility] [place] [facility] [address] [id number], [place] [address]- 1418 Feb, [facility] [place] [facility] [address] [id number] [place] [address]- 2260 Feb, [facility] [place] [facility] [address] [facility] [id number] [place] [address]- 0614 Feb, [facility] [place] [facility] [address] [facility] [id number] [place] [address]- 0545 Feb, [facility] [place] [facility] [address] [id number] [place] 3296 Feb, [facility] [place] [facility] [address] [id number] [place] [address]- 1624 Feb, [facility] [place] [facility] [address] [id number] [place] [address]- 8818 Feb, [facility] [place] [facility] [address] [id number] [place] [address] Feb, [facility] [place] [facility] [address] [id number] [place] [address] Feb, [facility] [place] [facility] [address] [id number] [place] [address] Jan, [facility] [place] [facility] [address] [id number] [place] [address] Jan, [facility] [place] [facility] [address] [id number] [place] [address] Jan, [facility] [place] [facility] [address] [id number] [place] [address] Jan, [facility] [place] [facility] [address] [id number] [place] [address] Jan, [facility] [place] [facility] [address] [id number] [place] [address] Jan, [facility] [place] [facility] [address] [id number] [place] [address] Jan, [facility] [place] [facility] [address] [id number] [place] [address] Jan, [facility] [place] [facility] [address] [id number] [place] [address] Dec, [facility] [place] [facility] [address] [id number] [place] [address] Dec, [facility] [place] [facility] [address] [id number] [place] [address] Nov, [facility] [place] [facility] [address] [id number] [place] [address] Nov, [facility] [place] [facility] [address] [id number] [place] [address] Nov, [facility] [place] [facility] [address] [id number] [place] [address] Nov, [facility] [place] [facility] [address] [id number] [place] [address] Nov, [facility] [place] [facility] [address] [id number] [place] [address] Nov, [facility] [place] [facility] [address] [id number] [place] [address] Oct, [facility] [place] [facility] [address] [id number] [place] [address] Oct, [facility] [place] [facility] [address] [id number] [place] [address] Oct, [facility] [place] [facility] [address] [id number] [place] [address] Oct, [facility] [place] [facility] [address] [id number] [place] [address] Sep, [facility] [place] [facility] [address] [id number] [place] [address] Sep, [facility] [place] [facility] [address] [id number] [place] [address] Sep, [facility] [place] [facility] [address] [id number] [place] [address] Sep, [facility] [place] [facility] [address] [id number] [place] [address] Sep, [facility] [place] [facility] [address] [id number] [place] [address] Sep, [facility] [place] [facility] [address] [id number] [place] [address] August, [facility] [address] [id number] [place] [address] August, [facility] [place] [facility] [address] [address] [id number] [place] [address] August, [facility] [place] [facility] [address] [id number] [place] [address] August, [facility] [place] [facility] [address] [id number] [place] [address] August, [facility] [place] [facility] [address] [id number] [place] [address] August, [facility] [place] [facility] [address] [id number] [place] [address] August, [facility] [address] [id number] [place] [address] August, [facility] [place] [facility] [address] [id number] [place] [address] August, [facility] [place] [facility] [address] [id number] [place] [address] August, [facility] [place] [facility] [address] [id number] [place] [address] August, [facility] [place] [facility] [address] [id number] [place] [address] 37[address] August, [facility] [place] [facility] [address] [id number] [place] [address] Jul, [facility] [place] [facility] [address] [id number] [place] [address] Jul, [facility] [place] [facility] [address] [id number] [place] [address]- 5769 Jul, [facility] [place] [facility] [address] [id number] [place] [address] Jul, [facility] [place] [facility] [address] [id number] [place] [address]- [address] 08 Jul, 2013 [facility] [place] [facility] [address] [id number] [place] [address]- [address]40 Jul, [facility] [place] [facility] [address] [id number] [place] [address]- 7626 Jul, [facility] [place] [facility] [address] [id number] [place] [address] 8[address] Jul, [facility] [place] [facility] [address] [id number] [place] [address] 65[address] Jul, [facility] [place] [facility] [address] [id number] [place] [address]- 0612 Jul, [facility] [place] [facility] [address] [id number] [place] [address]- 2803 Jul, [facility] [place] [facility] [address] [id number] [place] [address]- 5345 Jun, [facility] [place] [facility] [address] [id number] [place] [address] 8763 Jun, [facility] [place] [facility] [address] [id number] [place] [address]- 5266 Jun, [facility] [place] [facility] [address] [id number] [place] [address]- 4415 Jun, [facility] [place] [facility] [address] [id number] [place] [address]- 9520 Jun, [facility] [place] [facility] [address] [id number] [place] [address]- 5573 Jun, [facility] [place] [facility] [address] [id number] [place] [address]- 2228 Jun, [facility] [place] [facility] [address] [id number] [place] [address]- 3877 Jun, [facility] [place] [facility] [address] [id number] [place] [address]- 5479 Jun, [facility] [place] [facility] [address] [id number] [place] [address]- 0128 May, [facility] [place] [facility] [address] [id number] [place] [address]- 2113 May, [facility] [place] [facility] [address] [facility] [id number] [place] [address]- 2933 May, [facility] [place] [facility] [address] [id number] [place] [address]- 0990 Apr, [facility] [place] [facility] [address] [id number] [place] [address]- 7178 Apr, [facility] [place] [facility] [address] [id number] [place] [address]- 3105 Apr, [facility] [place] [facility] [address] [facility] [facility] [id number] [place] [address]- 0439 Apr, [facility] [place] [facility] [address] [facility] [id number] [place] [address]- 2973 Apr, [facility] [place] [facility] [address] [facility] [id number] [place] [address]- 1354 Apr, [facility] [place] [facility] [address] [facility] [id number] [place] [address]- 9664 Apr, [facility] [place] [facility] [address] [facility] [id number] [place] [address]- 6561 Apr, [facility] [place] [facility] [address] [id number] [place] [address]- 9252 Mar, [facility] [place] [facility] [address] [id number] [place] [address]- 2576 Mar, [facility] [place] [facility] [address] [facility] [id number] [place] [address]- 1124 Feb, [facility] [place] [facility] [address] [facility] [id number] [place] [address]- 4669 Feb, [facility] [place] [facility] [address] [id number] [place] [address]- 9030 31 Jan, 2012 [facility] [place] [facility] [address] [id number] [place] [address]- 8309 31 Jan, 2012 [facility] [place] [facility] [address] [id number] [place] [address]- 2437 28 Jan, 2012 [facility] [place] [facility] [address] [id number] [place] [address]- 2807 28 Jan, 2012 [facility] [place] [facility] [address] [id number] [place] [address]- 7264 24 Jan, 2012 [facility] [place] [facility] [address] [id number] [place] [address]- 3739 24 Jan, 2012 [facility] [place] [facility] [address] [id number] [place] [address]- 6242 Jan, 2012 [facility] [place] [facility] [address] [id number] [place] [address]- 2724 21 Jan, 2012 [facility] [place] [facility] [address] [id number] [place] [address]- 3717 17 Jan, 2012 [facility] [place] [facility] [address] [id number] [place] [address]- 5593 17 Jan, 2012 [facility] [place] [facility] [address] [id number] [place] [address]- 4498 14 Jan, 2012 [facility] [place] [facility] [address] [id number] [place] [address]- 9832 14 Jan, 2012 [facility] [place] [facility] [address] [id number] [place] [address]- 6127 10 Jan, 2012 [facility] [place] [facility] [address] [id number] [place] [address]- 9881 10 Jan, 2012 [facility] [place] [facility] [address] [id number] [place] [address]- 4400 10 Jan, 2012 [facility] [place] [facility] [address] [id number] [place] [address]- 8100 Jan, [facility] [place] [facility] [address] [id number] [place] [address]- 7887 Jan, 2012 [facility] [place] [facility] [address] [id number] [place] [address]- 6144 Jan, [facility] [place] [facility] [address] [id number] [place] [address]- 5129 Jan, 2012 [facility] [place] [facility] [address] [id number] [place] [address]- 8508 Jan, 2012 [facility] [place] [facility] [address] [id number] [place] [address]- 0538 Jan, [facility] [place] [facility] [address] [id number] [place] [address]- 2000 Jan, [facility] [place] [facility] [address] [id number] [place] [address]- 6804 Jan, [facility] [place] [facility] [address] [id number] [place] [address]- 8548 Dec, [facility] [place] [facility] [address] [id number] [place] [address]- 2294 Dec, [facility] [place] [facility] [address] [id number], [place] [address]- 4921 Nov, [facility] [place] [facility] [address] [id number], [place] [address]- 1025 Oct, [facility] [place] [facility] [address] [id number], [place] [address]- 9409 Oct, [facility] [place] [facility] [address] [id number] [place] [address]- 3348 Oct, [facility] [place] [facility] [address] [id number], [place] [address]- [address] Oct, [facility] [place] [facility] [address] [id number] [place] [address]- 3047 Oct, [facility] [place] [facility] [address] [id number] [place] [address]- 9737 Oct, [facility] [address] [id number] [place] [address]- 5982 Sep, [facility] [place] [facility] [address] [id number] [place] [address]- 1776 Sep, [facility] [address] [id number] [place] [address]- 8493 Sep, [facility] [place] [facility] [address] [id number] [place] [address]- 6445 Jul, [facility] [address] [id number] [place] [address]- 0450 Jul, [facility] [place] [facility] [address] [id number] [place] [address]- 7575 Jul, [facility] [address] [id number] [place] [address]- 5921 Jun, [facility] [place] [facility] [address] [id number] [place] [address]- 9337 Jun, [facility] [place] [facility] [address] [id number] [place] [address]- 6736 Jun, [facility] [place] [facility] [address] [id number] [place] [address]- 4260 Jun, [facility] [place] [facility] [address] [id number] [place] [address]- 9657 Jun, [facility] [place] [facility] [address] [id number] [place] [address]- 8073 Jun, [facility] [place] [facility] [address] [id number] [place] [address]- 1434 May, [facility] [place] [facility] [address] [id number] [place] [address]- 9030 May, [facility] [place] [facility] [address] [id number] [place] [address]- 8231 Apr, [facility] [place] [facility] [address] [id number] [place] [address]- 6578 29 Apr, 2012 [facility] [address] [id number] [place] [address]- 1658 Apr, [facility] [address] [id number] [place] [address]- 7889 Apr, [facility] [address] [id number] [place] [address]- 5779 Apr, [facility] [address] [id number] [place] [address]- 3539 Mar, [facility] [address] [id number] [place] [address]- 7470 Mar, [facility] [address] [id number] [place] [address]- 6346 Mar, [facility] [address] [id number] [place] [address]- 4223 Mar, [facility] [address] [id number] [place] [address]- 1944 Mar, [facility] [address] [id number] [place] [address]- 4243 14 Mar, 2012 [facility] [address] [id number] [place] [address]- 4031 Mar, [facility] [address] [id number] [place] [address]- 4202 Mar, [facility] [address] [id number] [place] [address]- 0951 05 Mar, 2012 [facility] [place] [facility] [address] [id number] [place] [address]- 7206 05 Mar, 2012 [facility] [address] [id number] [place] [address]- 1481 30 Feb, 2012 [facility] [address] [id number], [place] [address]- 0772 Feb, [facility] [place] [facility] [address] [id number] [place] [address]- 8905 Feb, [facility] [place] [facility] [address] [id number] [place] [address]- 5476 Feb, [facility] [place] [facility] [address] [id number] [place] [address]- 1245 Feb, [facility] [place] [facility] [address] [id number] [place] [address]- 2946 Feb, [facility] [place] [facility] [address] [id number] [place] [address]- 5626 Feb, [facility] [place] [facility] [address] [id number] [place] [address]- 8065 Feb, [facility] [place] [facility] [address] [id number] [place] [address]- 9040 Feb, [facility] [place] [facility] [address] [id number] [place] [address]- 9052 Feb, [facility] [place] [facility] [address] [id number] [place] [address]- 7475 Jan, [facility] [place] [facility] [address] [id number] [place] [address]- 6144 Jan, [facility] [place] [facility] [address] [id number], [place] [address]- 8108 Jan, [facility] [place] [facility] [address] [id number], [place] [address]- 1447 Jan, [facility] [place] [facility] [address] [id number] [place] [address]- 6910 Dec, [facility] [place] [facility] [address] [id number] [id number] [address]883 Dec, [facility] [place] [facility] [address] [id number] [place] [address]- 3042 18 Dec, 2011 [facility] [place] [facility] [address] [id number] [place] [address]- 6961 18 Sep, 2011 [facility] [address] [id number] [place] [address]- 1986 17 Sep, 2011 [facility] [place] [facility] [address] [id number] [place] [address]- 7676 14 Dec, 2011 [facility] [address] [id number] [place] [address]- 2916 13 Dec, 2011 [facility] [place] [facility] [address] [id number] [place] [address]- 3279 13 Dec, 2011 [facility] [address] [id number] [place] [address]- 6210 06 Dec, 2011 [facility] [address] [id number] [place] [address]- 4517 31 Nov, 2011 [facility] [place] [facility] [address] [id number] [place] [address]- 5498 30 Nov, 2011 [facility] [address] [id number] [place] [address]- 4282 Nov, [facility] [place] [facility] [address] [id number] [place] [address]- 9493 Nov, [facility] [address] [id number] [place] [address]- 1807 Sep, [facility] [place] [facility] [address] [id number] [place] [address]- 3843 Sep, [facility] [place] [facility] [address] [id number] [place] [address]- 7777 Sep, [facility] [place] [facility] [address] [id number] [place] [address]- 8561 August, [facility] [place] [facility] [address] [id number] [place] [address]- 4050 August, [facility] [place] [facility] [address] [id number] [place] [address]- 2156 August, [facility] [address] [id number] [place] [address]- 0716 August, [facility] [place] [facility] [address] [id number] [place] [address]- 8565 August, [facility] [place] [facility] [address] [id number] [place]17 August, [facility] [place] [facility] [address] [id number] [place] [address]- 7643 August, [facility] [place] [facility] [address] [id number] [place] [address]- 4824 August, [facility] [place] [facility] [address] [id number] [place] [address]- 5133 August, [facility] [place] [facility] [address] [id number] [place] [address]- 9226 Jul, [facility] [place] [facility] [address] [id number] [place] [address]- 3957 Jun, [facility] [place] [facility] [address] [id number] [place] [address]- 6178 Jun, [facility] [place] [facility] [address] [id number] [place] [address]- 2474 Jun, [facility] [place] [facility] [address] [id number] [place] [address]- 1504 Jun, [facility] [place] [facility] [address] [id number] [place] [address]- 6290 Jun, [facility] [place] [facility] [address] [id number] [place] [address]- 6980 Jun, [facility] [place] [facility] [address] [id number] [place] [address]- 5296 Jun, [facility] [place] [facility] [address] [id number] [place] [address]- 0599 Jun, [facility] [place] [facility] [address] [id number] [place] [address]- 8581 27 May, 2011 [facility] [address] [id number] [place] [address]- 5296 21 May, 2011 [facility] [place] [facility] [address] [id number] [place] [address] 2546 20 May, 2011 [facility] [address] [id number] [place] [address] 2546 19 May, 2011 [facility] [address] [id number] [place] [address] 2546 17 May, 2011 [facility] [address] [id number] [place] [address]- 8826 16 May, 2011 [facility] [address] [id number] [place] [address]- 1976 14 May, 2011 [facility] [address] [id number] [place] [address]- 0252 Apr, [facility] [address] [id number] [place] [address]- 0681 16 Apr, 2011 [facility] [address] [id number] [place] [address]- 0357 13 Apr, 2011 [facility] [address] [id number] [place] [address]- 5304 11 Apr, 2011 [facility] [address] [id number] [place] [address]- 3840 Apr, [facility] [address] [id number] [place] [address] 2546 Apr, [facility] [place] [facility] [address] [id number] [place] [address]- 6759 05 Apr, 2011 [facility] [place] [facility] [address] [id number] [place] [address] 2546 03 Apr, 2011 [facility] [address] [id number] [place] [address]- 4326 Mar, [facility] [place] [facility] [address] [id number] [place] [address]- 6776 20 Mar, 2011 [facility] [place] [facility] [address] [id number] [place] [address]- 5894 28 Feb, 2011 [facility] [place] [facility] [address] [id number] [place] [address]74 17 Feb, 2011 [facility] [place] [facility] [address] [id number] [place] [address]- 5216 17 Feb, 2011 [facility] [place] [facility] [address] [id number] [place] [address]- 5831 16 Feb, 2011 [facility] [place] [facility] [address] [id number] [place] [address]- 9674 16 Feb, 2011 [facility] [place] [facility] [address] [id number] [place] [address]- 2044 24 Jan, 2011 [facility] [place] [facility] [address] [id number] [place] [address]- 7069 12 Nov, 2010 [facility] [place] [facility] [address] [id number] [place] [address]- 9001 14 Sep, 2010 [facility] [place] [facility] [address] [id number] [place] [address]- 2560 August, [facility] [place] [facility] [address] [id number] [place] [address]- 5098 Jun, [facility] [place] [facility] [address] [id number] [place] [address]- 2214 14 May, 2010 [facility] [place] [facility] [address] [id number] [place] [address]- 3229 18 Apr, 2010 [facility] [place] [facility] [address] [id number] [place] 3323 22 Mar, 2010 [facility] [place] [facility] [address] [id number] [place] 9535 14 Mar, 2010 [facility] [place] [facility] [address] [id number], [place] [address]- 0930 14 Mar, 2010 [facility] [id number], [place] [address]- 4587 Feb, [facility] [id number], [place] [address]- 0807 Feb, [facility] [id number], [place] [address]- 8013 Jan, [facility] [id number], [place] [address]- 6956 Jan, [facility] [id number] [place] [address] 416669- 5259 Jan, [facility] [id number], [place] [address]- 3705 Oct, [facility] [id number], [place] [address]- 8203 Oct, [facility] [id number], [place] [address]- 3454 Apr, [facility] [id number] [address] Mar, [facility] [id number] [address] Mar, [facility] [id number] [place] [address] Jan, [facility] [id number] [address] Dec, IMMUNIZATIONS No Known Immunizations SOCIAL HISTORY Never Assessed REASON FOR VISIT medication PLAN OF CARE VITAL SIGNS MEDICATIONS Unknown [...]
--- OUTSIDE RECORDS SUMMARY | 2018-02-13 04:01 | XMS REPORT ---
Author Author NADIYA CARMONA Organization [facility] Address [address] [place] [address] Care Team Providers Care Burnisher Name Role Phone NADIYA CARMONA Unavailable PROBLEMS Type Condition ICD9-CM Code SMK61-CU Code Onset Dates Condition Status SNOMED Code Problem Asthma J45.909 Active 010032423 Problem Reactive depression F32.9 Active 08293060 Problem Secondary hypertension I15.9 Active 38641358 Problem Open bite of left hand, initial encounter S61.452A Active 512659499 Problem Bitten by cat, initial encounter W55.01XA Active 110722739 Problem Moderate persistent asthma with exacerbation J45.41 Active 055997208 Problem Bronchitis J40 Active 37353279 Problem Simple chronic bronchitis J41.0 Active 47365936 Problem Recurrent major depressive disorder, in full remission F33.42 Active 344926968 Problem Renal failure N19 Active 21631184 Problem Joint pain of left hip on movement M25.552 Active 781548103 Problem Hypercholesterolemia E78.00 Active 41319564 Problem Environmental allergies Z91.09 Active 453661351 Problem PVD (peripheral vascular disease) I73.9 Active 396436333 Problem Diabetes mellitus E11.9 Active 40380888 Problem Proteinuria R80.9 Active 24290484 Problem Insomnia G47.00 Active 682773179 Problem Neuropathy G62.9 Active 349413059 Problem GERD (gastroesophageal reflux disease) K21.9 Active 654072748 ALLERGIES Substance Reaction Event Type Date Status Stadol Unknown Drug Allergy Feb, Active Glucotrol Unknown Drug Allergy Feb, Active ENCOUNTERS Encounter Location Date Diagnosis [facility] [address] [facility] [id number] [address] Sep, [facility] [address] [facility] [id number], [place] [address] August, Neuropathy G62.9 [facility] [id number] [place] [address] 77543 -2222 August, Open bite of left hand, initial encounter S61.452A ; Encounter for immunization Z23 and Bitten by cat, initial encounter W55.01XA [facility] [id number] [place] [address] 11731- 9953 05 Jul, 2017 Environmental allergies Z91.09 [place] [address] 85251- 9254 15 Jun, 2017 [place] [address] 23580- 0415 14 Jun, 2017 Simple chronic bronchitis J41.0 ; PVD (peripheral vascular disease) I73.9 and Recurrent major depressive disorder, in full remission F33.42 [facility] [address] [id number] Jun, 2017 Dental examination Z01.20 [facility] [address] [address] Jun, Moderate persistent asthma with exacerbation J45.41 [place] [address] 74730- 7255 May, Neuropathy G62.9 and Diabetes mellitus E11.9 [place] [id number] [place] [address] 24902- 1087 Apr, [facility] [address] [address]75 -1416 Apr, Cough R05 [place] [id number] [place] [address] 59780- 9427 Feb, [place] [address] 83902- 8096 Feb, [place] [address] 91260- 5687 Feb, Diabetes mellitus E11.9 ; Neuropathy G62.9 ; Joint pain of left hip on movement M25.552 and Encounter for immunization Z23 [facility] [id number] [place] [address] 75016- 9452 Feb, [facility] [address] 24566- 3387 Feb, Diabetes mellitus E11.9 [facility] [id number] [place] [address] 99013- 5457 Feb, [facility] [address] 59034- 3949 Jan, [facility] [address] 62625- 3291 Jan, Secondary hypertension I15.9 [facility] [address] 39935- 0185 Dec, Diabetes mellitus E11.9 [facility] [address] [id number] Nov, Encounter for dental examination Z01.20 [facility] [address] 10938 -5767 Oct, Allergic contact dermatitis due to plants, except food L23.7 [facility] [id number] [place] [address] 00093- 5445 Oct, [facility] [id number] [place] [address] 35031- 6429 Oct, Diabetes mellitus E11.9 ; PVD (peripheral vascular disease) I73.9 ; Neuropathy G62.9 ; GERD (gastroesophageal reflux disease) K21.9 ; Insomnia G47.00 ; Environmental allergies Z91.09 ; Secondary hypertension I15.9 ; Reactive depression F32.9 ; Hypercholesterolemia E78.00 and Joint pain of left hip on movement M25.552 [facility] [id number] [place] [address] 76774- 5565 Sep, Diabetes mellitus E11.9 [facility] [address] 53531- 0938 Sep, Diabetes mellitus E11.9 [facility] [id number] [place] [address] 33280- 7657 Sep, Diabetes mellitus E11.9 [facility] [id number] [place] [address] 15769- 4154 Sep, Neuropathy G62.9 [facility] [address] 94564- 7012 August, [facility] [id number] [place] [address] 07464- 0116 Jul, [place] [address] 96264- 7285 Jun, [place] [address] 54629- 8201 Jun, Diabetes mellitus E11.9 ; PVD (peripheral vascular disease) I73.9 ; Neuropathy G62.9 ; Joint pain of left hip on movement M25.552 ; Renal failure N19 ; Asthma J45.909 ; Reactive depression F32.9 ; Pure hypercholesterolemia, unspecified E78.00 and Insomnia G47.00 [facility] [id number] [place] [address] 57788- 0436 Jun, Joint pain of left hip on movement M25.552 and Diabetes mellitus E11.9 [facility] [id number] [place] [address] 86617- 9183 Jun, [facility] [id number] [place] [address] 86944 -6266 May, Cough R05 and Bronchitis J40 [facility] [address] 64716- 1383 May, [facility] [id number] [place] [address] 10028- 0978 May, [facility] [address] 09295- 7623 10 May, 2016 Asthma J45.909 and Bronchitis J40 [place] [id number] 31614- 2921 07 May, 2016 [facility] [address] 76012- 5873 07 May, 2016 Bronchitis J40 [facility] [address] 21510- 2772 06 May, 2016 [place] [address] 14729- 3362 Apr, Diabetes mellitus E11.9 ; PVD (peripheral vascular disease) I73.9 ; GERD (gastroesophageal reflux disease) K21.9 ; Asthma J45.909 ; Insomnia G47.00 ; Environmental allergies Z91.09 ; Secondary hypertension I15.9 ; Joint pain of left hip on movement M25.552 ; Hypercholesterolemia E78.0 and Reactive depression F32.9 [place] [id number] [place] [address] 48709- 7615 14 Mar, 2016 Diabetes mellitus E11.9 ; PVD (peripheral vascular disease) I73.9 and Hypercholesterolemia E78.0 [place] [id number] [place] [address] 29768- 2785 Mar, Diabetes mellitus E11.9 and Hypercholesterolemia E78.0 [place] [id number] [place] [address] 47847- 9742 Mar, [place] [id number] [place] [address] 64279- 5493 Feb, [place] [address] 41167- 8430 18 Feb, 2016 [place] [address] 63662- 3655 Feb, [place] [address] 93690- 1633 31 Oct, 2016 Encounter for immunization Z23 [place] [id number] [place] [address] 96382- 5145 10 Jan, 2016 [place] [address] 44638- 0834 Dec, [place] [id number] [place] [address] 88074- 7177 Dec, Diabetes mellitus E11.9 ; PVD (peripheral vascular disease) I73.9 ; GERD (gastroesophageal reflux disease) K21.9 ; Insomnia G47.00 ; Joint pain of left hip on movement M25.552 ; Asthma J45.909 ; Environmental allergies Z91.09 ; Hypercholesterolemia E78.0 ; Essential hypertension I10 and Neuropathy G62.9 [place] [id number] [place] [address] 24747- 4830 Nov, [place] [address] 23523- 4481 Nov, [place] [id number] [place] [address] 82056- 4180 Oct, PVD (peripheral vascular disease) I73.9 and Diabetes mellitus E11.9 [place] [id number] [place] [address] 62536- 0868 Sep, Diabetes mellitus E11.9 ; PVD (peripheral vascular disease) I73.9 ; Neuropathy G62.9 ; Joint pain of left hip on movement M25.552 ; GERD ( gastroesophageal reflux disease) K21.9 ; Asthma J45.909 ; Insomnia G47.00 ; Secondary hypertension I15.9 and Hypercholesteremia E78.0 [place] [id number] [place] [address] 64896- 5841 August, [place] [id number] [place] [address] 94593- 2253 August, Neuropathy G62.9 [place] [id number] [place] [address] 35264- 9502 August, Neuropathy G62.9 [facility] [id number] [place] [address] 47097- 1562 30 Jun, 2015 Diabetes mellitus E11.9 ; Joint pain of left hip on movement M25.552 ; PVD (peripheral vascular disease) I73.9 ; Neuropathy G62.9 ; GERD (gastroesophageal reflux disease) K21.9 ; Asthma J45.909 ; Insomnia G47.00 ; Environmental allergies Z91.09 ; HTN (hypertension) I10 and Hypercholesteremia E78.0 [facility] [id number] [place] [address] 51752- 5636 Jun, [facility] [address] 05150- 2914 Jun, [facility] [id number] [place] [address] 07923- 6169 Jun, [facility] [address] 28268- 6786 Apr, [facility] [id number] [place] [address] 45004- 2110 Apr, [facility] [id number] [place] [address] 01901- 7299 Apr, Sinusitis J32.9 [facility] [id number] [place] [address] 19081- 4275 Apr, Neuropathy G62.9 [facility] [id number] [place] [address] 42286- 4107 Mar, [facility] [id number] [place] [address] 45377- 1649 Mar, [facility] [id number] [place] [address] 27616- 7297 Mar, Diabetes mellitus E11.9 ; PVD (peripheral vascular disease) I73.9 ; Neuropathy G62.9 ; GERD (gastroesophageal reflux disease) K21.9 ; Renal failure N19 ; Asthma J45.909 ; Insomnia G47.00 ; Environmental allergies Z91.09 ; Sinusitis J32.9 ; Cough R05 ; Edema R60.9 ; HTN (hypertension) I10 and Hypercholesterolemia E78.0 [facility] [id number] [place] [address] 13224 -0814 Mar, Dysuria R30.0 ; Vomiting, unspecified R11.10 ; Benign essential hypertension I10 and Dizziness R42 [facility] [address] 45293- 5423 Mar, [facility] [address] 96453- 5730 Mar, [facility] [address] 74498- 1907 Feb, [facility] [address] 47113- 9292 Feb, [facility] [address] 66145- 5874 Feb, [facility] [address] 40835- 0675 Feb, [facility] [address] 28550- 9244 Feb, Joint pain of left hip on movement M25.552 ; Lumbago M54.5 and UTI (urinary tract infection) N39.0 [facility] [id number] [place] [address] 27432- 3230 Feb, [facility] [id number] [place] [address] 11251- 5091 Feb, [facility] [address] 44112- 3661 Jan, [facility] [id number] [place] [address] 25912- 3831 Jan, [facility] [address] 32134- 9261 Jan, [facility] [id number] [place] [address] 16308- 6545 Jan, [facility] [id number] [place] [address] 91785- 2711 Jan, 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 [facility] [address] 30320- 0221 30 Dec, 2014 Hypertension 401.9 and Diabetes 250.00 [facility] [id number] [place] [address] 90924- 3204 Dec, Diabetes 250.00 ; Influenza vaccine administered V04.81 ; Unspecified peripheral vascular disease 443.9 ; Issue of repeat prescriptions V68.1 ; Unspecified hereditary and idiopathic peripheral neuropathy 356.9 ; Insomnia, unspecified 780.52 ; Hypercholesteremia 272.0 ; Pain in joint, site unspecified 719.40 ; Dizziness 780.4 and PCV-13 (PREVNAR) DX V03.82 [facility] [id number] [place] [address] 80709- 5712 Dec, [facility] [id number] [place] [address] 11695- 5231 Dec, [facility] [id number] [place] [address] 08993- 4083 Dec, [facility] [id number] [place] [address] 02668- 4529 Dec, [facility] [id number] [place] [address] 50756- 4737 Dec, [facility] [id number] [place] [address] 66526- 0315 Dec, [facility] [id number] [place] [address] 33598- 4625 Nov, [facility] [id number] [place] [address] 94714- 4400 Nov, Environmental allergies V15.09 ; Sacroiliitis, not elsewhere classified 720.2 and Cough 786.2 [place] [id number] [place] [address] 73606- 6026 Oct, [facility] [id number] [place] [address] 72755- 2110 Oct, [place] [address] [id number] [place] [address] 93886- 3805 Oct, [place] [address] [place] [address] [id number] [place] [address] 77074- 7729 Sep, [place] [address] 78452- 1107 Sep, [place] [address] [place] [id number] [place] [address] 46033- 3522 Sep, Dysuria 788.1 and Diabetes with other specified manifestations, type II or unspecified type, not stated as uncontrolled 250.80 [place] [address] [place] [address] [id number] [place] [address] 67840- 5285 Sep, [place] [address] [id number] [place] [address] 08523- 0518 Sep, Diabetes with other specified manifestations, type II or unspecified type, not stated as uncontrolled 250.80 [place] [address] [place] [address] [id number] [place] [address] 46884- 0603 Sep, DM w/o complication type II 250.00 ; Unspecified peripheral vascular disease 443.9 ; Pain in joint, pelvic region and thigh 719.45 ; Asthma , unspecified, unspecified status 493.90 ; Hypercholesteremia 272.0 ; Fatigue 780.79 ; UTI (lower urinary tract infection) 599.0 and Essential hypertension 401.9 [place] [id number] [place] [address] 57801- 3908 Sep, [place] [address] [place] [address] [id number] [place] [address] 05559- 0809 Sep, [place] [id number] [facility] [id number], [place] [address]- 7546 Sep, [facility] [address] [address]- 6306 August, [facility] [id number] [address]- 4446 August, [facility] [address], [place] [address]- 8504 August, Diabetes with other specified manifestations, type II or unspecified type, not stated as uncontrolled 250.80 [facility] [address], [place] [address]- 0974 Jul, Peripheral vascular disease 443.9 [facility] [address], [place] [address]- 1321 Jul, [facility] [address], [place] [address]- 4788 Jul, [facility] [address], [place] [address]- 0216 Jun, [facility] [address] 8282 Jun, [facility] [id number] [address]- 5897 Jun, [facility] [address] [place] [id number] [address]- 5784 Jun, [facility] [address] [facility] [id number], [place] [address]- 9995 Jun, [facility] [address] [place] [id number] [address]- 7545 Jun, [facility] [address] [facility] [id number] [place] [address]- 5116 Jun, [facility] [id number] [address]- 6244 Jun, [facility] [place] [facility] [address] [id number] [place] [address]- 5930 Jun, [facility] [place] [facility] [address] [id number] [place] [address]- 0256 May, 2014 [facility] [place] [facility] [address] [id number] [place] [address]- 0867 May, 2014 [facility] [place] [facility] [address] [id number] [place] [address]- 7743 May, 2014 [facility] [place] [facility] [address] [id number] [place] [address]- 6208 May, 2014 [facility] [place] [facility] [address] [facility] [id number] [place] [address]- 1009 May, 2014 [facility] [place] [facility] [address] [facility] [id number] [place] [address]- 7162 May, 2014 [facility] [place] [facility] [address] [id number] [place] [address]- 9700 May, 2014 [facility] [place] [facility] [address] [id number] [place] [address]- 5349 May, 2014 [facility] [place] [facility] [address] [facility] [id number] [place] [address]- 8536 May, 2014 [facility] [place] [facility] [address] [facility] [id number] [place] [address]- 5358 May, 2014 [facility] [place] [facility] [address] [facility] [id number] [place] [address]- 1049 May, 2014 [facility] [place] [facility] [address] [facility] [id number] [place] [address]- 1836 May, 2014 [facility] [place] [facility] [address] [facility] [id number] [place] [address]- 6942 May, 2014 [facility] [place] [facility] [address] [facility] [id number] [place] [address]- 5978 Apr, [facility] [place] [facility] [address] [id number] [place] [address]- 0020 Apr, [facility] [place] [facility] [address] [id number] [place] [address]- 9475 Apr, [facility] [place] [facility] [address] [id number] [place] [address]- 0239 Apr, [facility] [place] [facility] [address] [id number] [place] [address]- 8165 Apr, [facility] [place] [facility] [address] [id number] [place] [address]- 0150 Apr, [facility] [place] [facility] [address] [id number] [place] [address]- 6260 Apr, [facility] [place] [facility] [address] [id number] [place] [address]- 2095 Apr, [facility] [place] [facility] [address] [id number] [place] [address]- 7016 Mar, [facility] [place] [facility] [address] [id number] [place] [address]- 7074 Mar, [facility] [place] [facility] [address] [id number] [place] [address]- 8987 Mar, [facility] [place] [facility] [address] [id number] [place] [address]- 2922 Mar, [facility] [place] [facility] [address] [id number] [place] [address]- 6849 Mar, [facility] [place] [facility] [address] [id number] [place] [address]- 3384 Mar, [facility] [place] [facility] [address] [id number] [place] [address]- 1246 Mar, [facility] [place] [facility] [address] [id number] [place] [address]- 3292 Mar, [facility] [place] [facility] [address] [id number] [place] [address]- 1345 Mar, [facility] [place] [facility] [address] [id number] [place] 3062 Mar, [facility] [place] [facility] [address] [id number] [place] [address]- 9067 Mar, [facility] [place] [facility] [address] [id number] [place] [address]- 9132 Mar, [facility] [place] [facility] [address] [id number] [place] [address]- 7499 Mar, [facility] [place] [facility] [address] [id number] [place] 8789 Mar, [facility] [place] [facility] [address] [id number] [place] [address]- 2953 Feb, [facility] [place] [facility] [address] [id number] [place] [address]- 2324 Feb, [facility] [place] [facility] [address] [id number] [place] [address]- 1864 Feb, [facility] [place] [facility] [address] [id number] [place] [address] Feb, [facility] [place] [facility] [address] [id number] [place] [address] Feb, [facility] [place] [facility] [address] [id number], [place] [address] Feb, [facility] [place] [facility] [address] [id number], [place] [address] Feb, [facility] [place] [facility] [address] [id number] [place] [address] Feb, [facility] [place] [facility] [address] [id number] [place] [address] Feb, [facility] [place] [facility] [address] [id number] [place] [address] Feb, [facility] [place] [facility] [address] [id number] [place] [address] Feb, [facility] [place] [facility] [address] [id number] [place] [address] Feb, [facility] [place] [facility] [address] [id number] [place] [address] Feb, [facility] [place] [facility] [address] [id number] [place] [address] Feb, [facility] [place] [facility] [address] [id number] [place] [address] Feb, [facility] [place] [facility] [address] [id number] [place] [address] Feb, [facility] [place] [facility] [address] [id number] [place] [address] Jan, [facility] [place] [facility] [address] [id number] [place] [address] Jan, [facility] [place] [facility] [address] [id number] [place] [address] Jan, [facility] [place] [facility] [address] [id number] [place] [address] Jan, [facility] [place] [facility] [address] [id number] [place] [address] Jan, [facility] [place] [facility] [address] [id number] [place] [address] Jan, [facility] [place] [facility] [address] [id number] [place] [address] Jan, [facility] [place] [facility] [address] [id number] [place] [address] Jan, [facility] [place] [facility] [address] [id number] [place] [address] Dec, [facility] [place] [facility] [address] [id number] [place] [address] Dec, [facility] [place] [facility] [address] [id number] [place] [address] Nov, [facility] [place] [facility] [address] [id number] [place] [address] Nov, [facility] [place] [facility] [address] [id number] [place] [address] Nov, [facility] [place] [facility] [address] [id number] [place] [address] Nov, [facility] [place] [facility] [address] [id number] [place] [address] Nov, [facility] [place] [facility] [address] [id number] [place] [address] Nov, [facility] [place] [facility] [address] [id number] [place] [address] Oct, [facility] [place] [facility] [address] [id number] [place] [address] Oct, [facility] [place] [facility] [address] [id number] [place] [address] Oct, [facility] [place] [facility] [address] [id number] [place] [address] Oct, [facility] [place] [facility] [address] [address] [id number] [place] [address] Sep, [facility] [place] [facility] [address] [id number] [place] [address] 5367 Sep, [facility] [place] [facility] [address] [id number] [place] [address] 0016 Sep, [facility] [place] [facility] [address] [id number] [place] [address] 7402 Sep, [facility] [place] [facility] [address] [id number] [place] [address] Sep, [facility] [place] [facility] [address] [id number] [place] [address] 1378 Sep, [facility] [address] [id number] [place] [address] 9755 August, [facility] [place] [facility] [address] [id number] [place] [address] August, [facility] [place] [facility] [address] [id number] [place] [address]- 2515 August, [facility] [place] [facility] [address] [id number] [place] [address]- 1383 August, [facility] [place] [facility] [address] [id number] [place] [address]- 6256 August, [facility] [place] [facility] [address] [id number] [place] [address] 6179 August, [facility] [place] [facility] [address] [id number] [place] [address] 8547 August, [facility] [place] [facility] [address] [id number] [place] [address]- 5907 August, [facility] [place] [facility] [address] [id number] [place] [address]- 0823 August, [facility] [place] [facility] [address] [id number] [place] [address]- 2787 August, [facility] [place] [facility] [address] [id number] [place] [address]- 0657 August, [facility] [place] [facility] [address] [id number] [place] [address]- 8660 August, [facility] [place] [facility] [address] [id number] [place] [address]- 4251 Jul, [facility] [place] [facility] [address] [id number] [place] [address]- 7298 Jul, [facility] [place] [facility] [address] [id number] [place] [address]- 7026 Jul, [facility] [place] [facility] [address] [id number] [place] [address]- 4294 18 Jul, 2013 [facility] [place] [facility] [address] [id number] [place] [address]- 5171 08 Jul, 2013 [facility] [place] [facility] [address] [id number] [place] [address]- 6886 08 Jul, 2013 [facility] [place] [facility] [address] [id number] [place] [address]- 7800 Jul, [facility] [place] [facility] [address] [id number] [place] [address]- 4727 Jul, [facility] [place] [facility] [address] [id number] [place] [address]- 9492 Jul, [facility] [place] [facility] [address] [id number] [place] [address]- 7846 Jul, [facility] [place] [facility] [address] [id number] [place] [address]- 7974 Jul, [facility] [place] [facility] [address] [id number] [place] [address] Jun, [facility] [place] [facility] [address] [id number] [place] [address]- 4337 31 Jun, 2013 [facility] [place] [facility] [address] [id number] [place] [address]- 5470 Jun, [facility] [place] [facility] [address] [id number] [place] [address]- 9829 28 Jun, 2013 [facility] [place] [facility] [address] [id number] [place] [address]- 8326 Jun, [facility] [place] [facility] [address] [id number] [place] [address]- 1272 Jun, [facility] [place] [facility] [address] [id number] [place] [address]- 8986 Jun, [facility] [place] [facility] [address] [id number] [place] [address]- 5846 Jun, [facility] [place] [facility] [address] [id number] [place] [address]- 2445 Jun, [facility] [place] [facility] [address] [id number] [place] [address]- 7408 May, [facility] [place] [facility] [address] [id number] [place] [address]- 6858 May, [facility] [place] [facility] [address] [id number] [place] [address]- 1797 May, [facility] [place] [facility] [address] [id number] [place] [address]- 2337 Apr, [facility] [place] [facility] [address] [id number] [place] [address]- 5473 Apr, [facility] [place] [facility] [address] [id number] [place] [address]- 2399 Apr, [facility] [place] [facility] [address] [id number] [place] [address]- 6929 Apr, [facility] [place] [facility] [address] [id number] [place] [address]- 4322 Apr, [facility] [place] [facility] [address] [id number] [place] [address]- 4398 Apr, [facility] [place] [facility] [address] [id number] [place] [address]- 9537 Apr, [facility] [place] [facility] [address] [id number] [place] [address]- 8039 Apr, [facility] [place] [facility] [address] [id number] [place] [address]- 0072 Mar, [facility] [place] [facility] [address] [id number] [place] [address]- 9229 Mar, [facility] [place] [facility] [address] [id number] [place] [address]- 0216 Feb, [facility] [place] [facility] [address] [id number] [place] [address]- 3673 04 Feb, 2013 [facility] [place] [facility] [address] [id number] [place] [address]- 2050 31 Jan, 2012 [facility] [place] [facility] [address] [id number] [place] [address]- 6270 31 Jan, 2012 [facility] [place] [facility] [address] [id number] [place] [address]- 5445 Jan, 2012 [facility] [place] [facility] [address] [id number] [place] [address]- 3099 Jan, 2012 [facility] [place] [facility] [address] [id number] [place] [address]- 1166 Jan, [facility] [place] [facility] [address] [id number] [place] [address]- 7777 24 Jan, 2013 [facility] [place] [facility] [address] [id number] [place] [address]- 0450 Jan, 2012 [facility] [place] [facility] [address] [id number] [place] [address]- 8641 Jan, [facility] [place] [facility] [address] [id number] [place] [address]- 4971 17 Jan, 2012 [facility] [place] [facility] [address] [id number] [place] [address]- 3350 17 Jan, 2012 [facility] [place] [facility] [address] [id number] [place] [address]- 2078 14 Jan, 2012 [facility] [place] [facility] [address] [id number] [place] [address]- 2077 14 Jan, 2012 [facility] [place] [facility] [address] [id number] [place] [address]- 8636 10 Jan, 2012 [facility] [place] [facility] [address] [id number] [place] [address]- 5061 10 Jan, 2012 [facility] [place] [facility] [address] [id number] [place] [address]- 7787 Jan, 2012 [facility] [place] [facility] [address] [id number] [place] [address]- 6321 Jan, 2012 [facility] [place] [facility] [address] [id number] [place] [address]- 6333 Jan, 2012 [facility] [place] [facility] [address] [id number] [place] [address]- 6115 Jan, 2012 [facility] [place] [facility] [address] [id number] [place] [address]- 9543 Jan, 2012 [facility] [address] [id number] [place] [address]- 3481 Jan, 2012 [facility] [place] [facility] [address] [id number] [place] [address]- 5058 Jan, 2012 [facility] [place] [facility] [address] [id number] [place] [address]- 8419 Jan, [facility] [place] [facility] [address] [id number] [place] [address]- 4572 Jan, [facility] [place] [facility] [address] [id number] [place] [address]- 8289 Dec, [facility] [place] [facility] [address] [id number] [place] [address]- 9630 16 Dec, 2012 [facility] [place] [facility] [address] [id number] [place] [address]- 9130 Nov, [facility] [place] [facility] [address] [id number], [place] [address]- 2549 Oct, [facility] [place] [facility] [address] [id number] [place] [address]- 254 Oct, [facility] [place] [facility] [address] [id number] [place] [address]- 2958 Oct, [facility] [place] [facility] [address] [id number] [place] [address]- 2544 Oct, [facility] [place] [facility] [address] [id number] [place] [address]- 7416 Oct, [facility] [place] [facility] [address] [id number] [place] [address]- 2456 Oct, [facility] [place] [facility] [address] [id number] [place] [address]- 9887 Sep, [facility] [place] [facility] [address] [id number] [place] [address]- 5409 Sep, [facility] [place] [facility] [address] [id number] [place] [address]- 6398 Sep, [facility] [place] [facility] [address] [id number] [place] [address]- 8812 Jul, [facility] [place] [facility] [address] [id number] [place] [address]- 2344 Jul, [facility] [place] [facility] [address] [id number] [place] [address]- 2731 Jul, [facility] [place] [facility] [address] [id number] [place] [address]- 5189 Jun, [facility] [place] [facility] [address] [id number] [place] [address]- 1902 Jun, [facility] [place] [facility] [address] [id number] [place] [address]- 4662 Jun, [facility] [place] [facility] [address] [id number] [place] [address]- 5205 Jun, [facility] [place] [facility] [address] [id number] [place] [address]- 8074 Jun, [facility] [place] [facility] [address] [id number] [place] [address]- 2323 Jun, [facility] [place] [facility] [address] [id number] [place] [address]- 0893 May, [facility] [place] [facility] [address] [id number] [place] [address]- 9614 May, [facility] [place] [facility] [address] [id number] [place] [address]- 2193 31 Apr, 2012 [facility] [address] [id number] [place] [address]- 0411 29 Apr, 2012 [facility] [place] [facility] [address] [id number] [place] [address]- 1936 Apr, [facility] [address] [id number] [place] [address]- 3706 Apr, [facility] [place] [facility] [address] [id number] [place] [address]- 9039 Apr, [facility] [address] [id number] [place] [address]- 6976 Mar, [facility] [place] [facility] [address] [id number] [place] [address]- 1887 Mar, [facility] [address] [id number] [place] [address]- 9438 Mar, [facility] [address] [id number] [place] [address]- 2327 27 Mar, 2012 [facility] [place] [facility] [address] [id number] [place] [address]- 4934 14 Mar, 2012 [facility] [address] [id number] [place] [address]- 7737 14 Mar, 2012 [facility] [place] [facility] [address] [id number] [place] [address]- 0537 10 Mar, 2012 [facility] [place] [facility] [address] [id number] [place] [address] 2546 10 Mar, 2012 [facility] [place] [facility] [address] [id number] [place] [address]- 2346 05 Mar, 2012 [facility] [place] [facility] [address] [id number] [place] [address]- 5146 05 Mar, 2012 [facility] [place] [facility] [address] [id number] [place] [address]- 9010 Feb, [facility] [place] [facility] [address] [id number] [place] [address]- 6242 Feb, [facility] [place] [facility] [address] [id number] [place] [address]- 4996 Feb, [facility] [place] [facility] [address] [id number] [place] [address]- 2189 Feb, [facility] [place] [facility] [address] [id number] [place] [address]- 0024 Feb, [facility] [place] [facility] [address] [id number] [place] [address]- 1282 Feb, [facility] [place] [facility] [address] [id number] [place] [address]- 6035 Feb, [facility] [place] [facility] [address] [facility] [id number] [place] [address]- 0250 Feb, [facility] [place] [facility] [address] [id number], [place] [address]- 8607 Feb, [facility] [place] [facility] [address] [id number] [place] [address]- 2328 Feb, [facility] [place] [facility] [address] [facility] [id number], [place] [address]- 3025 Jan, [facility] [place] [facility] [address] [id number], [place] [address]- 2241 Jan, [facility] [place] [facility] [address] [id number], [place] [address]- 8451 Jan, [facility] [place] [facility] [address] [id number], [place] [address]- 7811 Jan, [facility] [place] [facility] [address] [id number], [place] [address]- 0767 Dec, [facility] [place] [facility] [address] [facility] [id number], [place] [address]- 0827 Dec, [facility] [place] [facility] [address] [id number] [place] [address]- 4304 18 Sep, 2011 [facility] [place] [facility] [address] [id number] [place] [address]- 4236 18 Sep, 2011 [facility] [place] [facility] [address] [id number] [place] [address]- 3016 17 Sep, 2011 [facility] [place] [facility] [address] [id number] [place] [address]- 8896 14 Sep, 2011 [facility] [place] [facility] [address] [id number] [place] [address] 2546 13 Dec, 2011 [facility] [place] [facility] [address] [id number] [place] [address]- 0936 13 Dec, 2011 [facility] [place] [facility] [address] [id number] [place] [address]- 6736 06 Dec, 2011 [facility] [place] [facility] [address] [id number] [place] [address]- 6734 31 Nov, 2011 [facility] [place] [facility] [address] [id number] [place] [address]- 9608 30 Nov, 2011 [facility] [place] [facility] [address] [id number] [place] [address]- 4774 Nov, [facility] [place] [facility] [address] [id number] [place] [address]- 9097 Nov, [facility] [place] [facility] [address] [id number] [place] [address]- 5681 Sep, [facility] [place] [facility] [address] [id number] [place] [address]- 5066 Sep, [facility] [place] [facility] [address] [id number] [place] [address]- 2059 Sep, [facility] [place] [facility] [address] [id number] [place] [address]- 8823 August, [facility] [place] [facility] [address] [id number] [place] [address]- 9291 August, [facility] [place] [facility] [address] [id number] [place] [address]- 2428 August, [facility] [address] [id number] [place] [address]- 1968 August, [facility] [place] [facility] [address] [id number] [place] [address]- 5631 August, [facility] [address] [id number] [place] [address]- 0168 August, [facility] [address] [id number] [place] [address]- 8685 August, [facility] [place] [facility] [address] [id number] [place] [address]- 9114 August, [facility] [address] [id number] [place] [address]- 0890 August, [facility] [address] [id number] [place] [address]- 7176 Jul, [facility] [address] [id number] [place] [address]- 7880 Jun, [facility] [place] [facility] [address] [id number] [place] [address]- 0637 Jun, [facility] [place] [facility] [address] [id number] [place] [address]- 8876 Jun, [facility] [place] [facility] [address] [id number] [place] [address]- 5919 Jun, [facility] [place] [facility] [address] [id number] [place] [address]- 2521 Jun, [facility] [place] [facility] [address] [id number] [place] [address]- 3782 Jun, [facility] [place] [facility] [address] [id number] [place] [address]- 5610 Jun, [facility] [place] [facility] [address] [id number] [place] [address]- 4086 Jun, [facility] [address] [id number] [place] [address]- 8606 27 May, 2011 [facility] [place] [facility] [address] [id number] [place] [address]- 3286 21 May, 2011 [facility] [address] [id number] [place] [address]- 1536 20 May, 2011 [facility] [address] [id number] [place] [address]- 0645 19 May, 2011 [facility] [address] [id number] [place] [address]- 2726 17 May, 2011 [facility] [address] [id number] [place] [address]- 8636 16 May, 2011 [facility] [address] [facility] [id number] [place] [address]- 7693 14 May, 2011 [facility] [address] [id number] [place] [address]- 9493 Apr, [facility] [address] [id number] [place] [address]- 5516 16 Apr, 2011 [facility] [address] [facility] [id number] [place] [address]- 4517 Apr, [facility] [address] [id number] [place] [address]- 5460 Apr, [facility] [place] [facility] [address] [id number] [place] [address]- 1453 Apr, [facility] [place] [facility] [address] [id number] [place] [address]- 7647 09 Apr, 2011 [facility] [place] [facility] [address] [facility] [id number] [place] [address]- 3396 05 Apr, 2011 [facility] [place] [facility] [address] [facility] [id number] [place] [address]- 1296 Apr, [facility] [place] [facility] [address] [id number] [place] [address] 29 Mar, 2011 [facility] [place] [facility] [address] [id number] [place] [address] 20 Mar, 2011 [facility] [place] [facility] [address] [id number] [place] [address] 28 Feb, 2011 [facility] [place] [facility] [address] [id number] [place] [address] 17 Feb, 2011 [facility] [place] [facility] [address] [id number] [place] [address] 17 Feb, 2011 [facility] [place] [facility] [address] [id number] [place] [address] 16 Feb, 2011 [facility] [place] [facility] [address] [id number] [place] [address] 16 Feb, 2011 [facility] [place] [facility] [address] [id number] [place] [address] 24 Jan, 2011 [facility] [place] [facility] [address] [id number] [place] [address] Nov, [facility] [place] [facility] [address] [id number] [place] [address] Sep, [facility] [place] [facility] [address] [id number] [place] [address] August, [facility] [place] [facility] [address] [id number] [place] [address] Jun, [facility] [place] [facility] [address] [id number] [place] [address] 14 May, 2010 [facility] [place] [facility] [address] [id number] [place] [address] 18 Apr, 2010 [facility] [place] [facility] [address] [id number] [place] [address] 22 Mar, 2010 [facility] [place] [facility] [address] [id number] [address] 14 Mar, 2010 [facility] [address] [id number] [address] 14 Mar, 2010 [facility] [id number] [address] Feb, [facility] [id number] [place] [address] Feb, [facility] [address] [facility] [id number], [place] [address] Jan, [facility] [id number] [address] Jan, [facility] [id number] [place] [address] Jan, [facility] [id number] [place] [address] Oct, [facility] [id number] [address] Oct, [facility] [id number], [place] [address] Apr, [facility] [id number], [place] [address] Mar, [facility] [id number] [address] Mar, [facility] [id number] [address] Jan, [facility] [id number] [address] Dec, IMMUNIZATIONS Vaccine Route Administration Date Status FLUARIX QUAD (3 AND UP) 2017 IM Intramuscular Mar 07, 2017 Administered SOCIAL HISTORY Never Assessed REASON FOR VISIT Transition of Care/maria density test--Samm Jiménez MA PLAN OF CARE VITAL SIGNS Height 63 in 2017-03-07 Weight 129.7 lbs 2017-03-07 Temperature 97.7 degrees Fahrenheit 2017-03-07 Heart Rate 68 bpm 2017-03-07 Respiratory Rate 18 2017-03-07 BMI 22.97 kg/m2 2017-03-07 Blood pressure systolic 120 mmHg 2017-03-07 Blood pressure diastolic 76 mmHg 2017-03-07 MEDICATIONS Medication Instructions Dosage Frequency Start Date End Date Duration Status Levemir Flexpen 100 UNIT/ML Subcutaneous 2 times a day Inject 25 units in AM and PM 12h Active Gabapentin 300MG Orally 3 times a day 1 capsule by Oral route 3 times per day 8h Active Pen Viola 32G X 4 MM subcutaneously 2 times a day use to Inject insulin 12h 25 Feb, 2015 90 days Active Vytorin 10-40 MG Orally Once a day 1 tablet 24h Active Celexa 20 mg Orally Once a day 1 tablet 24h Active Norvasc 5 mg Orally 2 times a day 1 tablet by Oral route 2 times per day 12h Active Atenolol 100MG 1 tablet 24h 30 Active Hydrochlorothiazide 50MG 1 tablet 24h 30 Active Amitriptyline HCl 150 MG Orally Once a day 1 tablet 24h Feb, 30 day(s) Active Diclofenac Sodium 50MG DR Orally Three times a day 1 tablet 8h Active Metformin HCl 1000 MG Orally Twice a day 1 tablet with meals 12h Feb, 30 day(s) Active Percocet 5-325 MG Orally every 6 hrs prn 1 tablet as needed Feb, Active RESULTS Name Result Date Reference Range A1C (IN HOUSE) 2017-03-07 A1C IN HOUSE 6.1 4.3 - 5.6 % Previous A1c 5.6 Lot 0767 Exp date 11/2018 PROCEDURES Procedure Date Ordered Result Body Site [facility] VISIT ESTABLISHED PATIENT Mar 07, 2017 SINGLE IMMUNIZATION ADMIN Mar 07, 2017 FLUARIX QUAD (3 AND UP) 2016Mar 07, 2017 GLYCATED HEMOGLOBIN TEST Mar 07, 2017 INSTRUCTIONS MEDICATIONS ADMINISTERED No Known Medications [...]
--- OUTSIDE RECORDS SUMMARY | 2018-02-13 04:02 | XMS REPORT ---
Author Author NICHELLE VALENZUELA [facility] eClinicalWorks Address Unknown Phone Unavailable Care Team Providers Care Part Time Name Role Phone NICHELLE VALENZUELA Unavailable Allergies [...] Instructions Start Date End Date Status Dosage Levemir [facility] [id number] 100 UNIT/ML Subcutaneous 2 times a day Jun 02, 2014 inject 25 unit in am and pm1 Injection by Subcutaneous route 2 times per day 30units AM, 34units at HS Results No Known Results Summary Purpose eClinicalWorks Submission
--- OUTSIDE RECORDS SUMMARY | 2018-02-13 04:02 | XMS REPORT ---
Author Author CECILIA MCCALLUM Organization [facility] Address [address] [place] [address] Care Team Providers Care Production Generalist Name Role Phone MONSE MCCALLUMICE Unavailable PROBLEMS Type Condition ICD9-CM Code [id number] Code Onset Dates Condition Status SNOMED Code Problem PVD (peripheral vascular disease) I73.9 Active 310038918 Problem Insomnia G47.00 Active 385076413 Problem Diabetes mellitus E11.9 Active 50929531 Problem Encounter for dental examination Z01.20 Active 055329045 Problem Bronchitis J40 Active 37252817 Problem Asthma J45.909 Active 878040086 Problem GERD (gastroesophageal reflux disease) K21.9 Active 759939158 Problem Reactive depression F32.9 Active 07821519 Problem Secondary hypertension I15.9 Active 41794790 Problem Renal failure N19 Active 54819717 Problem Joint pain of left hip on movement M25.552 Active 060742475 Problem Hypercholesterolemia E78.00 Active 32599891 Problem Proteinuria R80.9 Active 89209030 Problem Environmental allergies Z91.09 Active 997217375 Problem Neuropathy G62.9 Active 368398350 ALLERGIES Substance Reaction Event Type Date Status Stadol Unknown Drug Allergy May, Active Glucotrol Unknown Drug Allergy May, Active SOCIAL HISTORY Never Assessed PLAN OF CARE Activity Details Follow Up prn Reason: VITAL SIGNS Height 63 in 2016-06-18 Weight 130.4 lbs 2016-06-18 Temperature 97.4 degrees Fahrenheit 2016-06-18 Heart Rate 72 bpm 2016-06-18 Respiratory Rate 18 2016-06-18 BMI 23.10 kg/m2 2016-06-18 Blood pressure systolic 132 mmHg 2016-06-18 Blood pressure diastolic 78 mmHg 2016-06-18 MEDICATIONS Medication Instructions Dosage Frequency Start Date End Date Duration Status Vytorin 10-40 MG Orally Once a day 1 tablet 24h Active ProAir HFA 108 (90 Base) MCG/ACT Inhalation every 4 hrs 2 puffs as needed 4h 07 May, 2016 Active Norvasc 5 mg Orally 2 times a day 1 tablet by Oral route 2 times per day 12h Active Metformin HCl 1000MG Orally Twice a day 1 tablet with meals 12h Active Hydrochlorothiazide 50 mg Orally Once a day 1 tablet 24h 29 Mar, 2015 Active Levemir 100 UNIT/ML Subcutaneous 2 times a day inject 25 unit in am and pm 12h May, Active Gabapentin 300 MG Orally 3 times a day 1 capsule by Oral route 3 times per day 8h 90 Active Mucinex 600 MG Orally every 12 hrs 1 tablet as needed 12h 10 May, 2016 Active Atenolol 100 MG orally once 1 tablet by Oral route 1 time per day Jun Active Flonase 50 MCG/ACT Nasally Once a day 1 spray in each nostril 24h Feb, Active Promethazine-Codeine 6.25-10 MG/5ML Orally every 6 hrs 5 ml as needed 6h May, Active Pen [place] 31G X 6 MM as directed 12h Feb, Active amitriptyline 150 mg by oral route Once a day 1 tablet 24h Jun, Active Celexa 20 mg Orally Once a day 1 tablet 24h Apr, 30 day(s) Active Diclofenac Sodium 50MG DR Orally Three times a day 1 tablet 8h Active Albuterol Sulfate 90 mcg/actuation 2 puffs by Inhalation route every 4-6 hours as neededPRNcough or wheezing August, Active Percocet 5-325 MG Orally every 6 hrs 1 tablet as needed 6h 18 Feb, 2016 Active PredniSONE 50 MG Orally Once a day 1 tablet 24h May, Jun, 5 days Active RESULTS Name Result Date Reference Range Chest (IN HOUSE) 2016-06-18 PROCEDURES Procedure Date Ordered Result Body Site NEBULIZER TREATMENT 2016-06-18 N/A ALBUTEROL UNIT DOSE FORM INHALED 2016-06-18 N/A ALBUTEROL INHAL UNIT DOSE 1 MG Jun 18, 2016 NEB/MDI RX INITIAL Jun 18, 2016 [facility]LY [facility] VISIT ESTABLISHED PATIENT Jun 18, 2016 IMMUNIZATIONS No Known Immunizations MEDICAL (GENERAL) [...]
--- OUTSIDE RECORDS SUMMARY | 2018-02-13 04:02 | XMS REPORT ---
Author Author NICHELLE VALENZUELA Organization [employer] Address Unknown Phone Unavailable Care Team Providers Care Dietary Supervisor Name Role Phone NICHELLE VALENZUELA Unavailable Allergies [...] G62.9 Active Problem Proteinuria R80.9 Active Medications No Known Medications Results No Known Results Summary Purpose [employer] Submission
--- OUTSIDE RECORDS SUMMARY | 2018-02-13 04:02 | XMS REPORT ---
Author Author NICHELLE VALENZUELA Organization [facility] Address [address] [place] [address] Care Team Providers Care Apron Trimmer Name Role Phone ZULEIKA VALENZUELANETTE Unavailable PROBLEMS Type Condition ICD9-CM Code DUZ11-NV Code Onset Dates Condition Status SNOMED Code Problem PVD (peripheral vascular disease) I73.9 Active 611470655 Problem Insomnia G47.00 Active 161562160 Problem Diabetes mellitus E11.9 Active 75026023 Problem Encounter for dental examination Z01.20 Active 244452670 Problem Bronchitis J40 Active 57912230 Problem Asthma J45.909 Active 849212552 Problem GERD (gastroesophageal reflux disease) K21.9 Active 474098257 Problem Reactive depression F32.9 Active 85816818 Problem Secondary hypertension I15.9 Active 09227738 Problem Renal failure N19 Active 91644955 Problem Joint pain of left hip on movement M25.552 Active 367748347 Problem Hypercholesterolemia E78.00 Active 41478511 Problem Proteinuria R80.9 Active 34225394 Problem Environmental allergies Z91.09 Active 244323993 Problem Neuropathy G62.9 Active 798247525 ALLERGIES No Information SOCIAL HISTORY Never Assessed PLAN OF CARE VITAL SIGNS MEDICATIONS Medication Instructions Dosage Frequency Start Date End Date Duration Status Levemir 100 UNIT/ML Subcutaneous 2 times a day inject 25 unit in am and pm 12h 12 May, 2014 90 days Active Pen [place] 32G X 4 MM subcutaneously 2 times a day as directed 12h Feb 90 days Active Vytorin 10-40 MG Orally Once a day 1 tablet 24h 90 days Active RESULTS No Results PROCEDURES No Known procedures IMMUNIZATIONS No Known Immunizations MEDICAL (GENERAL) HISTORY [...]
--- OUTSIDE RECORDS SUMMARY | 2018-02-13 04:02 | XMS REPORT ---
Author Author NICHELLE VALENZUELA Organization [employer] Address Unknown Phone Unavailable Care Team Providers Care Steam Powerplant Supervisor Name Role Phone NICHELLE VALENZUELA Unavailable [...]
--- OUTSIDE RECORDS SUMMARY | 2018-02-13 04:02 | XMS REPORT ---
Author Author NICHELLE VALENZUELA Organization [facility] [place] Address [address] [place] [address] Care Team Providers Care Business Account Manager Name Role Phone NICHELLE VALENZUELA Unavailable PROBLEMS Type Condition ICD9-CM Code HOI10-XU Code Onset Dates Condition Status SNOMED Code Problem PVD (peripheral vascular disease) I73.9 Active 618968445 Problem Insomnia G47.00 Active 489716004 Problem Diabetes mellitus E11.9 Active 54571800 Problem Encounter for dental examination Z01.20 Active 107449256 Problem Bronchitis J40 Active 83785070 Problem Asthma J45.909 Active 941043793 Problem GERD (gastroesophageal reflux disease) K21.9 Active 009042725 Problem Reactive depression F32.9 Active 38835193 Problem Secondary hypertension I15.9 Active 19175604 Problem Renal failure N19 Active 26317941 Problem Joint pain of left hip on movement M25.552 Active 910150663 Problem Hypercholesterolemia E78.00 Active 76126530 Problem Proteinuria R80.9 Active 73180640 Problem Environmental allergies Z91.09 Active 088218134 Problem Neuropathy G62.9 Active 510540042 ALLERGIES No Information SOCIAL HISTORY Never Assessed [...]
--- OUTSIDE RECORDS SUMMARY | 2018-02-13 04:02 | XMS REPORT ---
Author Author NICHELLE VALENZUELA Organization [employer] Address Unknown Phone Unavailable Care Team Providers Care Kettle Cook Name Role Phone NICHELLE VALENZUELA Unavailable Allergies [...]
--- OUTSIDE RECORDS SUMMARY | 2018-02-13 04:02 | XMS REPORT ---
Author Author NICHELLE VALENZUELA Organization [facility] Address [address] [place] [address] Care Team Providers Care Lead Software Engineer Name Role Phone NICHELLE VALENZUELA Unavailable PROBLEMS Type Condition ICD9-CM Code VJR56-LR Code Onset Dates Condition Status SNOMED Code Problem PVD (peripheral vascular disease) I73.9 Active 289126556 Problem Insomnia G47.00 Active 519697487 Problem Diabetes mellitus E11.9 Active 78827053 Problem Encounter for dental examination Z01.20 Active 028027604 Problem Bronchitis J40 Active 25137407 Problem Asthma J45.909 Active 979940433 Problem GERD (gastroesophageal reflux disease) K21.9 Active 144776633 Problem Reactive depression F32.9 Active 86986136 Problem Secondary hypertension I15.9 Active 69125033 Problem Renal failure N19 Active 45261429 Problem Joint pain of left hip on movement M25.552 Active 897655824 Problem Hypercholesterolemia E78.00 Active 98768019 Problem Proteinuria R80.9 Active 57793813 Problem Environmental allergies Z91.09 Active 795985000 Problem Neuropathy G62.9 Active 939861354 ALLERGIES No Information SOCIAL HISTORY Never Assessed PLAN OF CARE VITAL SIGNS MEDICATIONS Unknown [...]
--- OUTSIDE RECORDS SUMMARY | 2018-02-13 04:03 | XMS REPORT ---
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 Name Role Phone TETO HICKMAN Unavailable PROBLEMS Type Condition ICD9-CM Code OID82-KA Code Onset Dates Condition Status SNOMED Code Problem Insomnia G47.00 Active 527426049 Problem Asthma J45.909 Active 707665027 Problem GERD (gastroesophageal reflux disease) K21.9 Active 757619990 Problem Simple chronic bronchitis J41.0 Active 28178469 Problem Recurrent major depressive disorder, in full remission F33.42 Active 070238503 Problem Reactive depression F32.9 Active 74963077 Problem Secondary hypertension I15.9 Active 92704793 Problem Moderate persistent asthma with exacerbation J45.41 Active 622955969 Problem Bronchitis J40 Active 68078155 Problem Hypercholesterolemia E78.00 Active 99622442 Problem Environmental allergies Z91.09 Active 656083964 Problem Proteinuria R80.9 Active 47630660 Problem Neuropathy G62.9 Active 447933909 Problem Renal failure N19 Active 81346558 Problem PVD (peripheral vascular disease) I73.9 Active 341471977 Problem Joint pain of left hip on movement M25.552 Active 763886312 Problem Diabetes mellitus E11.9 Active 69090955 ALLERGIES Substance Reaction Event Type Date Status Stadol Unknown Drug Allergy Nov, Active Glucotrol Unknown Drug Allergy Nov, Active ENCOUNTERS Encounter Location Date Diagnosis [facility] [address] [facility] [id number] [address] Jul, Environmental allergies Z91.09 [facility] [address] [id number] [address] Jun, [facility] [address] [id number] [address] Jun, Simple chronic bronchitis J41.0 ; PVD (peripheral vascular disease) I73.9 and Recurrent major depressive disorder, in full remission F33.42 [facility] [id number] [place] [id number] Jun, Dental examination Z01.20 [facility] [id number] [place] [address] 29857 -5513 Jun, Moderate persistent asthma with exacerbation J45.41 [facility] [address] 39355- 0093 May, Neuropathy G62.9 and Diabetes mellitus E11.9 [facility] [place] [address] 62193- 0143 Apr, [facility] [id number] [place] [address] 31728 -9458 Apr, Cough R05 [facility] [address] 9[address]65- 3586 Feb, [facility] [id number] [place] [address] 06222- 6393 Feb, [facility] [address] 01849- 3076 Feb, Diabetes mellitus E11.9 ; Neuropathy G62.9 ; Joint pain of left hip on movement M25.552 and Encounter for immunization Z23 [facility] [id number] [place] [address] 92237- 8125 Feb, [facility] [address] 96994- 5447 Feb, Diabetes mellitus E11.9 [facility] [address] 83055- 7194 Feb, [place] [address] 79776- 1157 Jan, [facility] [address] 90726- 9190 Jan, Secondary hypertension I15.9 [facility] [address] [id number] [address] Dec, Diabetes mellitus E11.9 [facility] [address] [place] [id number] Nov, Encounter for dental examination Z01.20 [facility] [id number] [place] [address] 92376 -2180 Oct, Allergic contact dermatitis due to plants, except food L23.7 [facility] [id number] [place] [address] 78613- 0845 Oct, [facility] [id number] [place] [address] 62755- 8859 Oct, Diabetes mellitus E11.9 ; PVD (peripheral vascular disease) I73.9 ; Neuropathy G62.9 ; GERD (gastroesophageal reflux disease) K21.9 ; Insomnia G47.00 ; Environmental allergies Z91.09 ; Secondary hypertension I15.9 ; Reactive depression F32.9 ; Hypercholesterolemia E78.00 and Joint pain of left hip on movement M25.552 [facility] [id number] [place] [address] 22612- 8229 Sep, Diabetes mellitus E11.9 [facility] [id number] [place] [address] 89748- 5046 Sep, Diabetes mellitus E11.9 [facility] [id number] [place] [address] 36254- 5246 Sep, Diabetes mellitus E11.9 [facility] [id number] [place] [address] 91474- 0901 Sep, Neuropathy G62.9 [facility] [id number] [place] [address] 98543- 0402 August, [facility] [id number] [place] [address] 01216- 7651 Jul, [facility] [address] 70159- 4960 Jun, [facility] [address] 39714- 8009 Jun, Diabetes mellitus E11.9 ; PVD (peripheral vascular disease) I73.9 ; Neuropathy G62.9 ; Joint pain of left hip on movement M25.552 ; Renal failure N19 ; Asthma J45.909 ; Reactive depression F32.9 ; Pure hypercholesterolemia, unspecified E78.00 and Insomnia G47.00 [facility] [address] 18199- 4830 Jun, Joint pain of left hip on movement M25.552 and Diabetes mellitus E11.9 [place] [address] 25041- 2920 Jun, [facility] [address] 97396 -9428 May, Cough R05 and Bronchitis J40 [facility] [address] 17339- 2565 May, [place] [address] 34756- 5379 May, [place] [address] 81733- 8137 May, Asthma J45.909 and Bronchitis J40 [facility] [address] 87191- 7583 May, [facility] [address] 72710- 8734 May, Bronchitis J40 [facility] [address] 23682- 7308 May, [facility] [address] 78822- 6674 Apr, Diabetes mellitus E11.9 ; PVD (peripheral vascular disease) I73.9 ; GERD (gastroesophageal reflux disease) K21.9 ; Asthma J45.909 ; Insomnia G47.00 ; Environmental allergies Z91.09 ; Secondary hypertension I15.9 ; Joint pain of left hip on movement M25.552 ; Hypercholesterolemia E78.0 and Reactive depression F32.9 [facility] [address] 85821- 8892 14 Mar, 2016 Diabetes mellitus E11.9 ; PVD (peripheral vascular disease) I73.9 and Hypercholesterolemia E78.0 [place] [address] 78120- 8499 Mar, Diabetes mellitus E11.9 and Hypercholesterolemia E78.0 [facility] [address] 41728- 4362 Mar, [place] [address] 18520- 2356 Feb, [place] [address] 87622- 8636 Feb, [place] [address] 76383- 0987 Feb, [place] [address] 80250- 1503 31 Jan, 2016 Encounter for immunization Z23 [place] [address] 23326- 1529 Jan, [place] [address] 51684- 2186 Dec, [place] [address] 27174- 0254 06 Dec, 2015 Diabetes mellitus E11.9 ; PVD (peripheral vascular disease) I73.9 ; GERD (gastroesophageal reflux disease) K21.9 ; Insomnia G47.00 ; Joint pain of left hip on movement M25.552 ; Asthma J45.909 ; Environmental allergies Z91.09 ; Hypercholesterolemia E78.0 ; Essential hypertension I10 and Neuropathy G62.9 [place] [address] [place] [address] 53730- 1592 Nov, [place] [id number] [place] [address] 71960- 0483 Nov, [facility] [id number] [place] [address] 20673- 8357 Oct, PVD (peripheral vascular disease) I73.9 and Diabetes mellitus E11.9 [place] [address] 48072- 3534 Sep, Diabetes mellitus E11.9 ; PVD (peripheral vascular disease) I73.9 ; Neuropathy G62.9 ; Joint pain of left hip on movement M25.552 ; GERD ( gastroesophageal reflux disease) K21.9 ; Asthma J45.909 ; Insomnia G47.00 ; Secondary hypertension I15.9 and Hypercholesteremia E78.0 [place] [id number] [place] [address] 33807- 2074 August, [place] [id number] [place] [address] 68512- 0281 August, Neuropathy G62.9 [place] [id number] [place] [address] 93084- 2898 August, Neuropathy G62.9 [place] [id number] [place] [address] 46275- 0185 Jun, Diabetes mellitus E11.9 ; Joint pain of left hip on movement M25.552 ; PVD (peripheral vascular disease) I73.9 ; Neuropathy G62.9 ; GERD (gastroesophageal reflux disease) K21.9 ; Asthma J45.909 ; Insomnia G47.00 ; Environmental allergies Z91.09 ; HTN (hypertension) I10 and Hypercholesteremia E78.0 [place] [id number] [place] [address] 88187- 1096 Jun, [place] [address] 41709- 7160 Jun, [facility] [address] [address]- 4533 Jun, [facility] [address] [address]- 3302 Apr, [facility] [address] [place] [address] 99773- 6879 Apr, [facility] [id number] [place] [address] 47770- 4445 Apr, Sinusitis J32.9 [facility] [id number] [place] [address] 49063- 8341 Apr, Neuropathy G62.9 [facility] [address] [place] [address] 32990- 3292 Mar, [facility] [id number] [place] [address] 42165- 8787 Mar, [facility] [address] [place] [address] 61710- 8625 Mar, Diabetes mellitus E11.9 ; PVD (peripheral vascular disease) I73.9 ; Neuropathy G62.9 ; GERD (gastroesophageal reflux disease) K21.9 ; Renal failure N19 ; Asthma J45.909 ; Insomnia G47.00 ; Environmental allergies Z91.09 ; Sinusitis J32.9 ; Cough R05 ; Edema R60.9 ; HTN (hypertension) I10 and Hypercholesterolemia E78.0 [facility] [address] [address] Mar, Dysuria R30.0 ; Vomiting, unspecified R11.10 ; Benign essential hypertension I10 and Dizziness R42 [facility] [address] [address]- 1119 Mar, [facility] [address] [place] [address] 70597- 9176 Mar, [facility] [id number] [address]- 7191 Feb, [facility] [address] [address]- 9147 Feb, [facility] [address] [address]- 0445 Feb, [facility] [address] [place] [address] 22837- 0258 Feb, [facility] [address] [place] [address] 98226- 3927 Feb, Joint pain of left hip on movement M25.552 ; Lumbago M54.5 and UTI (urinary tract infection) N39.0 [facility] [address] [address]- 9932 Feb, [facility] [address] [place] [address] 13328- 7082 Feb, [facility] [address] [address]- 2949 Jan, [facility] [address] [place] [address] 92928- 3435 Jan, [facility] [address] [address]- 4561 Jan, [facility] [address] [address]- 7096 Jan, [facility] [address] [id number] [address]- 8520 Jan, 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 [facility] [address] [place] [address] 23906- 6869 Dec, Hypertension 401.9 and Diabetes 250.00 [facility] [address] [address]- 7250 Dec, Diabetes 250.00 ; Influenza vaccine administered V04.81 ; Unspecified peripheral vascular disease 443.9 ; Issue of repeat prescriptions V68.1 ; Unspecified hereditary and idiopathic peripheral neuropathy 356.9 ; Insomnia, unspecified 780.52 ; Hypercholesteremia 272.0 ; Pain in joint, site unspecified 719.40 ; Dizziness 780.4 and PCV-13 (PREVNAR) DX V03.82 [facility] [id number] [place] [address] 67751- 7787 Dec, [facility] [address] 26856- 3436 Dec, [facility] [id number] [place] [address] 52206- 0129 Dec, [facility] [address] 40835- 0207 Dec, [facility] [address] 42449- 7931 Dec, [facility] [address] 51376- 1215 Dec, [facility] [id number] [place] [address] 26701- 0042 Nov, [facility] [id number] [place] [address] 27112- 8583 Nov, Environmental allergies V15.09 ; Sacroiliitis, not elsewhere classified 720.2 and Cough 786.2 [facility] [id number] [place] [address] 88443- 7711 Oct, [facility] [id number] [place] [address] 44105- 6707 Oct, [facility] [address] 62579- 5104 Oct, [facility] [id number] [place] [address] 81458- 0880 Sep, [facility] [address] 10934- 0484 Sep, [facility] [address] [address]- 1121 Sep, Dysuria 788.1 and Diabetes with other specified manifestations, type II or unspecified type, not stated as uncontrolled 250.80 [facility] [address] [place] [address] 49366- 9727 Sep, [facility] [id number] [place] [address] 89741- 5029 Sep, Diabetes with other specified manifestations, type II or unspecified type, not stated as uncontrolled 250.80 [place] [id number] [place] [address] 06349- 1333 Sep, DM w/o complication type II 250.00 ; Unspecified peripheral vascular disease 443.9 ; Pain in joint, pelvic region and thigh 719.45 ; Asthma , unspecified, unspecified status 493.90 ; Hypercholesteremia 272.0 ; Fatigue 780.79 ; UTI (lower urinary tract infection) 599.0 and Essential hypertension 401.9 [place] [address] [place] [address] 68717- 8387 Sep, [place] [id number] [place] [address] 25882- 8967 Sep, [place] [address] [place] [address] 08321- 1613 Sep, [facility] [address] [place] [address] 93371- 0495 August, [facility] [address] [address]- 2156 August, [place] [id number] [place] [address] 56007- 5305 August, Diabetes with other specified manifestations, type II or unspecified type, not stated as uncontrolled 250.80 [facility] [address] [place] [address] 17585- 6527 Jul, Peripheral vascular disease 443.9 [facility] [address] [id number] [place] [address]- 7144 14 Jul, 2014 [facility] [place] [facility] [address] [facility] [id number] [place] [address]- 5340 13 Jul, 2014 [facility] [address] [facility] [id number] [place] [address]- 0127 27 Jun, 2014 [facility] [place] [facility] [address] [facility] [id number] [place] [address]- 0158 27 Jun, 2014 [facility] [address] [id number] [place] [address]- 4623 14 Jun, 2014 [facility] [place] [facility] [address] [facility] [id number] [place] [address]- 5869 Jun, [facility] [address] [facility] [id number] [place] [address]- 1193 Jun, [facility] [place] [facility] [address] [facility] [id number] [place] [address]- 3582 Jun, [facility] [address] [facility] [id number] [place] [address]- 6773 Jun, [facility] [place] [facility] [address] [facility] [id number] [place] [address]- 5281 Jun, [facility] [place] [facility] [address] [facility] [id number] [place] [address]- 2546 Jun, [facility] [place] [facility] [address] [facility] [id number] [place] [address]- 8030 May, [facility] [place] [facility] [address] [id number] [place] 9766 May, [facility] [place] [facility] [address] [facility] [id number] [place] [address]- 1690 24 May, 2014 [facility] [place] [facility] [address] [facility] [id number] [place] [address]- 4041 May, [facility] [place] [facility] [address] [id number] [place] [address]- 5965 May, 2014 [facility] [place] [facility] [address] [id number] [place] [address]- 3646 May, 2014 [facility] [place] [facility] [address] [id number] [place] [address]- 5326 May, 2014 [facility] [place] [facility] [address] [id number] [place] [address]- 9469 May, 2014 [facility] [place] [facility] [address] [id number] [place] [address]- 6039 May, 2014 [facility] [place] [facility] [address] [id number] [place] [address]- 5195 May, 2014 [facility] [place] [facility] [address] [id number] [place] [address]- 0561 May, 2014 [facility] [place] [facility] [address] [id number] [place] [address]- 3144 May, [facility] [place] [facility] [address] [id number] [place] [address]- 6547 May, [facility] [place] [facility] [address] [id number] [place] [address]- 5567 Apr, [facility] [place] [facility] [address] [id number] [place] [address]- 3747 Apr, [facility] [place] [facility] [address] [id number] [place] [address]- 7890 Apr, [facility] [place] [facility] [address] [id number] [place] [address]- 5987 Apr, [facility] [place] [facility] [address] [id number] [place] [address]- 0483 Apr, [facility] [place] [facility] [address] [id number] [place] [address]- 6740 Apr, [facility] [place] [facility] [address] [id number] [place] [address]- 2819 Apr, [facility] [address] [id number] [place] [address]- 3029 Apr, [facility] [place] [facility] [address] [id number] [place] 4712 Mar, [facility] [place] [facility] [address] [id number] [place] [address]- 9351 Mar, [facility] [place] [facility] [address] [id number] [place] [address]- 9160 Mar, [facility] [place] [facility] [address] [id number] [place]100 Mar, [facility] [place] [facility] [address] [id number] [place] [address]- 3204 Mar, [facility] [place] [facility] [address] [id number] [place] [address]- 2802 Mar, [facility] [place] [facility] [address] [id number] [place] [address]- 9210 Mar, [facility] [place] [facility] [address] [id number] [place] [address]- 7622 Mar, [facility] [place] [facility] [address] [id number] [place] [address]- 8700 Mar, [facility] [place] [facility] [address] [id number] [place] [address]- 6741 Mar, [facility] [place] [facility] [address] [id number] [place] [address]- 7434 Mar, [facility] [place] [facility] [address] [id number] [place] [address]- 5141 Mar, [facility] [place] [facility] [address] [id number] [place] [address]- 3718 Mar, [facility] [place] [facility] [address] [id number] [place] [address]- 5805 Mar, [facility] [place] [facility] [address] [id number] [place] [address]- 7143 Feb, [facility] [place] [facility] [address] [id number] [place] [address]- 8678 Feb, [facility] [place] [facility] [address] [id number] [place] [address]- 4432 Feb, [facility] [place] [facility] [address] [id number] [place] [address]- 1829 Feb, [facility] [place] [facility] [address] [id number] [place] [address]- 8001 Feb, [facility] [place] [facility] [address] [id number] [place] [address]- 9498 Feb, [facility] [place] [facility] [address] [id number] [place] [address] Feb, [facility] [place] [facility] [address] [id number] [place] [address] Feb, [facility] [place] [facility] [address] [id number] [place] [address] Feb, [facility] [place] [facility] [address] [id number] [place] [address] Feb, [facility] [place] [facility] [address] [id number] [place] [address] Feb, [facility] [place] [facility] [address] [id number] [place] [address] Feb, [facility] [place] [facility] [address] [id number] [place] [address] Feb, [facility] [place] [facility] [address] [id number] [place] [address] Feb, [facility] [place] [facility] [address] [id number] [place] [address] Feb, [facility] [place] [facility] [address] [id number] [place] [address] Feb, [facility] [place] [facility] [address] [id number] [place] [address] Jan, [facility] [place] [facility] [address] [id number] [place] [address] Jan, [facility] [place] [facility] [address] [id number] [place] [address] Jan, [facility] [place] [facility] [address] [id number] [place] [address] Jan, [facility] [place] [facility] [address] [id number] [place] [address] Jan, [facility] [place] [facility] [address] [id number] [place] [address] Jan, [facility] [place] [facility] [address] [id number] [place] [address] Jan, [facility] [place] [facility] [address] [id number] [place] [address] Jan, [facility] [place] [facility] [address] [id number] [place] [address] Dec, [facility] [place] [facility] [address] [id number] [place] [address] Dec, [facility] [place] [facility] [address] [id number] [place] [address] Nov, [facility] [place] [facility] [address] [id number] [place] [address] Nov, [facility] [place] [facility] [address] [id number] [place] [address] Nov, [facility] [place] [facility] [address] [id number] [place] [address] Nov, [facility] [place] [facility] [address] [id number] [place] [address] Nov, [facility] [place] [facility] [address] [id number] [place] [address] Nov, [facility] [place] [facility] [address] [id number] [place] [address] Oct, [facility] [place] [facility] [address] [id number] [place] [address] Oct, [facility] [place] [facility] [address] [id number] [place] [address] Oct, [facility] [place] [facility] [address] [id number] [place] [address] Oct, [facility] [place] [facility] [address] [id number] [place] [address] Sep, [facility] [place] [facility] [address] [id number] [place] [address] Sep, [facility] [place] [facility] [address] [id number] [place] [address] Sep, [facility] [place] [facility] [address] [id number] [place] [address] Sep, [facility] [place] [facility] [address] [id number] [place] [address] Sep, [facility] [place] [facility] [address] [id number] [place] [address] [address] Sep, [facility] [place] [facility] [address] [id number] [place] [address] August, [facility] [place] [facility] [address] [id number] [place] [address] August, [facility] [place] [facility] [address] [id number] [place] [address] August, [facility] [place] [facility] [address] [id number] [place] [address] August, [facility] [place] [facility] [address] [id number] [place] [address] August, [facility] [place] [facility] [address] [id number] [place] [address] 8920 August, [facility] [place] [facility] [address] [id number] [place] [address] 6748 August, [facility] [place] [facility] [address] [id number] [place] [address] 8979 August, [facility] [place] [facility] [address] [id number] [place] [address] 5447 August, [facility] [place] [facility] [address] [id number] [place] [address] 1020 August, [facility] [place] [facility] [address] [id number] [place] [address] 6086 August, [facility] [place] [facility] [address] [id number] [place] [address] 6458 August, [facility] [place] [facility] [address] [id number] [place] [address]- 4842 Jul, [facility] [place] [facility] [address] [id number] [place] [address] 6657 Jul, [facility] [place] [facility] [address] [id number] [place] [address]- 1278 Jul, [facility] [place] [facility] [address] [id number] [place] [address] 6118 Jul, [facility] [place] [facility] [address] [id number] [place] [address]- 0127 Jul, [facility] [place] [facility] [address] [id number] [place] [address]- 6684 Jul, [facility] [place] [facility] [address] [id number] [place] [address] 1832 Jul, [facility] [place] [facility] [address] [id number] [place] [address] Jul, [facility] [place] [facility] [address] [id number] [place] [address]- 9021 Jul, [facility] [place] [facility] [address] [id number] [place] [address]- 3312 Jul, [facility] [place] [facility] [address] [id number] [place] [address] Jul, [facility] [place] [facility] [address] [id number] [place] [address]- 8862 Jun, [facility] [place] [facility] [address] [id number] [place] [address]- 2070 Jun, [facility] [place] [facility] [address] [id number] [place] [address]- 7233 Jun, [facility] [place] [facility] [address] [id number] [place] [address]- 5364 Jun, [facility] [place] [facility] [address] [id number] [place] [address]- 1014 Jun, [facility] [place] [facility] [address] [id number] [place] [address]- 7353 Jun, [facility] [place] [facility] [address] [id number] [place] [address]- 2483 Jun, [facility] [place] [facility] [address] [id number] [place] [address]- 4266 Jun, [facility] [place] [facility] [address] [id number] [place] [address]- 0716 Jun, [facility] [place] [facility] [address] [id number] [place] [address]- 6781 May, [facility] [place] [facility] [address] [id number] [place] [address]- 7802 May, [facility] [place] [facility] [address] [id number] [place] [address]- 4019 May, [facility] [place] [facility] [address] [id number] [place] [address]- 8759 Apr, [facility] [place] [facility] [address] [id number] [place] [address]- 5675 Apr, [facility] [place] [facility] [address] [id number] [place] [address] 1924 Apr, [facility] [place] [facility] [address] [id number] [place] [address]- 3796 Apr, [facility] [place] [facility] [address] [id number] [place] [address]- 5299 Apr, [facility] [place] [facility] [address] [id number] [place] [address]- 6657 Apr, [facility] [place] [facility] [address] [id number] [place] [address]- 2495 Apr, [facility] [place] [facility] [address] [id number] [place] [address]- 9000 Apr, [facility] [place] [facility] [address] [id number] [place] [address]- 4152 Mar, [facility] [place] [facility] [address] [id number] [place] [address]- 8986 Mar, [facility] [place] [facility] [address] [id number] [place] [address]- 5573 Feb, [facility] [place] [facility] [address] [id number] [place] [address]- 9999 Feb, [facility] [place] [facility] [address] [id number] [place] [address]- 3772 Jan, [facility] [place] [facility] [address] [id number] [place] [address]- 8740 Jan, [facility] [place] [facility] [address] [id number] [place] [address]- 5571 Jan, [facility] [place] [facility] [address] [id number] [place] [address]- 2881 Jan, [facility] [place] [facility] [address] [id number] [place] [address]- 7834 24 Jan, 2012 [facility] [place] [facility] [address] [id number] [place] [address]- 4148 24 Jan, 2012 [facility] [place] [facility] [address] [id number] [place] [address]- 4375 Jan, 2012 [facility] [place] [facility] [address] [id number] [place] [address]- 3034 Jan, 2012 [facility] [place] [facility] [address] [id number] [place] [address]- 9202 17 Jan, 2012 [facility] [place] [facility] [address] [id number] [place] [address]- 5112 17 Jan, 2012 [facility] [place] [facility] [address] [id number] [place] [address]- 0108 14 Jan, 2012 [facility] [place] [facility] [address] [id number] [place] [address]- 9256 14 Jan, 2012 [facility] [place] [facility] [address] [id number] [place] [address]- 6759 10 Jan, 2012 [facility] [place] [facility] [address] [id number] [place] [address]- 1194 10 Jan, 2012 [facility] [place] [facility] [address] [id number] [place] [address]- 0987 10 Jan, 2012 [facility] [place] [facility] [address] [id number] [place] [address] 5423 10 Jan, 2012 [facility] [place] [facility] [address] [id number] [place] [address]- 2033 09 Jan, 2012 [facility] [place] [facility] [address] [id number] [place] [address]- 3476 09 Jan, 2012 [facility] [place] [facility] [address] [id number] [place] [address]- 5070 08 Jan, 2012 [facility] [place] [facility] [address] [id number] [place] [address]- 7477 07 Jan, 2012 [facility] [place] [facility] [address] [id number] [place] [address]- 2546 Jan, [facility] [address] [id number] [place] [address]- 0853 Jan, [facility] [place] [facility] [address] [id number] [place] [address]- 2546 Jan, [facility] [address] [id number] [place] [address]- 4810 Dec, [facility] [place] [facility] [address] [id number] [place] [address]- 2544 Dec, [facility] [address] [id number] [place] [address]- 6685 Nov, [facility] [place] [facility] [address] [id number] [place] [address]- 2541 Oct, [facility] [place] [facility] [address] [id number] [place] [address]- 9896 Oct, [facility] [address] [id number] [place] [address]- 2999 Oct, [facility] [place] [facility] [address] [id number] [place] [address]- 6883 Oct, [facility] [address] [id number] [place] [address]- 0525 Oct, [facility] [place] [facility] [address] [id number] [place] [address]- 2544 Oct, [facility] [place] [facility] [address] [id number] [place] [address]- 7800 Sep, [facility] [place] [facility] [address] [id number] [place] [address]- 2890 Sep, [facility] [place] [facility] [address] [id number] [place] [address]- 2546 Sep, [facility] [place] [facility] [address] [id number] [place] [address]- 1199 Jul, [facility] [address] [id number] [place] [address]- 6068 Jul, [facility] [address] [id number] [place] [address]- 5649 Jul, [facility] [address] [id number] [place] [address]- 3330 Jun, [facility] [address] [id number] [place] [address]- 7044 Jun, [facility] [address] [id number] [place] [address]- 5513 Jun, [facility] [address] [id number] [place] [address]- 2547 Jun, [facility] [address] [id number] [place] [address]- 3735 Jun, [facility] [address] [id number] [place] [address]- 3305 Jun, [facility] [address] [id number] [place] [address]- 9616 May, [facility] [address] [id number] [place] [address]- 8766 May, [facility] [address] [id number] [place] [address]- 7318 Apr, [facility] [place] [facility] [address] [id number] [place] [address]- 0936 Apr, [facility] [place] [facility] [address] [id number] [place] [address]- 5921 Apr, [facility] [place] [facility] [address] [id number] [place] [address]- 3522 Apr, [facility] [place] [facility] [address] [id number] [place] [address]- 2783 Apr, [facility] [place] [facility] [address] [id number] [place] [address]- 3734 31 Mar, 2012 [facility] [place] [facility] [address] [id number] [place] [address]- 9616 31 Mar, 2012 [facility] [place] [facility] [address] [id number] [place] [address]- 8506 27 Mar, 2012 [facility] [place] [facility] [address] [id number] [place] [address]- 3746 27 Mar, 2012 [facility] [place] [facility] [address] [id number] [place] [address]- 4956 14 Mar, 2012 [facility] [place] [facility] [address] [id number] [place] [address]- 0666 14 Mar, 2012 [facility] [place] [facility] [address] [id number] [place] [address]- 6096 10 Mar, 2012 [facility] [place] [facility] [address] [id number] [place] [address]- 4217 10 Mar, 2012 [facility] [place] [facility] [address] [id number] [place] [address]- 2651 05 Mar, 2012 [facility] [place] [facility] [address] [id number] [place] [address]- 5401 05 Mar, 2012 [facility] [place] [facility] [address] [facility] [id number] [place] [address]- 5438 30 Feb, 2012 [facility] [place] [facility] [address] [id number] [place] [address]- 7649 30 Feb, 2012 [facility] [place] [facility] [address] [id number] [place] [address]- 2546 Feb, [facility] [place] [facility] [address] [id number] [place] [address]- 5366 Feb, [facility] [place] [facility] [address] [id number] [place] [address]- 8436 Feb, [facility] [place] [facility] [address] [facility] [id number] [place] [address]- 3789 Feb, [facility] [place] [facility] [address] [id number] [place] [address]- 1578 Feb, [facility] [place] [facility] [address] [id number] [place] [address]- 6225 Feb, [facility] [place] [facility] [address] [id number] [place] [address]- 2879 Feb, [facility] [place] [facility] [address] [id number] [place] [address]- 1917 Feb, [facility] [place] [facility] [address] [id number] [place] [address]- 3194 Jan, [facility] [place] [facility] [address] [id number] [place] [address]- 2707 Jan, [facility] [place] [facility] [address] [id number] [place] [address]- 0134 Jan, [facility] [place] [facility] [address] [id number] [place] [address]- 2804 Jan, [facility] [place] [facility] [address] [id number] [place] [address]- 2379 28 Sep2011 [facility] [place] [facility] [address] [id number] [place] [address]- 7353 25 Sep2011 [facility] [place] [facility] [address] [id number] [place] [address]- 7112 18 Sep2011 [facility] [place] [facility] [address] [id number] [place] [address]- 9163 18 Sep2011 [facility] [place] [facility] [address] [id number] [place] [address]- 3209 17 Sep2011 [facility] [place] [facility] [address] [id number] [place] [address]- 0062 14 Sep2011 [facility] [place] [facility] [address] [id number] [place] [address]- 5890 13 Sep2011 [facility] [place] [facility] [address] [id number] [place] [address]- 1091 Dec, [facility] [place] [facility] [address] [id number] [place] [address]- 8811 Dec, [facility] [place] [facility] [address] [id number] [place] [address]- 4606 Nov, [facility] [place] [facility] [address] [id number] [place] [address]- 3903 Nov, [facility] [place] [facility] [address] [id number] [place] [address]- 3546 Nov, [facility] [place] [facility] [address] [id number] [place] [address]- 5238 Nov, [facility] [place] [facility] [address] [id number] [place] [address]- 9977 Sep, [facility] [place] [facility] [address] [id number] [place] [address]- 0717 Sep, [facility] [place] [facility] [address] [id number] [place] [address]- 7482 Sep, [facility] [place] [facility] [address] [id number] [place] [address]- 3748 August, [facility] [place] [facility] [address] [id number] [place] [address]- 6764 August, [facility] [place] [facility] [address] [id number] [place] [address]- 8544 August, [facility] [place] [facility] [address] [id number] [place] [address]- 8922 August, [facility] [place] [facility] [address] [id number] [place] [address]- 2600 August, [facility] [place] [facility] [address] [id number] [place] [address]- 8460 August, [facility] [place] [facility] [address] [id number] [place] [address]- 2391 August, [facility] [place] [facility] [address] [id number] [place] [address]- 8566 August, [facility] [address] [id number] [place] [address]- 1456 August, [facility] [place] [facility] [address] [id number] [place] [address]- 3996 Jul, [facility] [address] [id number] [place] [address]- 0608 Jun, [facility] [address] [id number] [place] [address]- 4376 16 Jun, 2011 [facility] [address] [id number] [place] [address]- 1189 Jun, [facility] [address] [id number] [place] [address]- 0166 Jun, [facility] [address] [id number] [place] [address]- 8454 05 Jun, 2011 [facility] [address] [id number] [place] [address]- 2576 Jun, [facility] [place] [facility] [address] [id number] [place] [address]- 4848 Jun, [facility] [address] [id number] [place] [address]- 7936 Jun, [facility] [place] [facility] [address] [id number] [place] [address]- 9636 May, [facility] [address] [id number] [place] [address]- 9146 May, [facility] [place] [facility] [address] [id number] [place] [address]- 8536 May, [facility] [place] [facility] [address] [id number] [place] [address] 2546 May, [facility] [place] [facility] [address] [id number] [place] [address]- 8836 17 May, 2011 [facility] [place] [facility] [address] [id number] [place] [address]- 8338 16 May, 2011 [facility] [place] [facility] [address] [id number] [place] [address]- 1886 14 May, 2011 [facility] [place] [facility] [address] [id number] [place] [address]- 4646 Apr, [facility] [place] [facility] [address] [id number] [place] [address]- 7546 Apr, [facility] [place] [facility] [address] [id number] [place] [address]- 0040 Apr, [facility] [place] [facility] [address] [id number] [place] [address]- 9326 Apr, [facility] [place] [facility] [address] [id number] [place] [address]- 7006 Apr, [facility] [place] [facility] [address] [id number] [place] [address]- 3676 Apr, [facility] [place] [facility] [address] [id number] [place] [address]- 5748 Apr, [facility] [place] [facility] [address] [id number] [place] [address]- 1716 Apr, [facility] [place] [facility] [address] [id number] [place] [address]- 3926 29 Mar, 2011 [facility] [place] [facility] [address] [id number] [place] [address] 2546 Mar, [facility] [place] [facility] [address] [id number] [place] [address] 2546 28 Feb, 2011 [facility] [place] [facility] [address] [id number] [place] [address]- 6656 Feb, [facility] [place] [facility] [address] [id number] [place] [address]- 2546 Feb, [facility] [place] [facility] [address] [id number] [place] [address]- 2588 16 Feb, 2011 [facility] [address] [id number] [place] [address]80 16 Feb, 2011 [facility] [place] [facility] [address] [id number] [place] [address]- 0573 24 Jan, 2011 [facility] [place] [facility] [address] [id number] [place] [address]- 9510 12 Nov, 2010 [facility] [place] [facility] [address] [id number] [place] [address]- 5161 14 Sep, 2010 [facility] [place] [facility] [address] [id number] [place] [address]- 6720 August, [facility] [place] [facility] [address] [id number] [place] [address]- 5798 16 Jun, 2010 [facility] [place] [facility] [address] [id number] [place] [address]- 2318 14 May, 2010 [facility] [place] [facility] [address] [id number] [place] [address]- 0188 18 Apr, 2010 [facility] [place] [facility] [address] [id number] [place] [address]- 0596 22 Mar, 2010 [facility] [place] [facility] [address] [id number] [place] [address]- 1424 14 Mar, 2010 [facility] [place] [facility] [address] [id number] [place] [address]- 1718 14 Mar, 2010 [facility] [place] [facility] [address] [id number] [place] [address]- 9988 12 Feb, 2010 [facility] [place] [facility] [address] [id number] [place] [address]- 0230 12 Feb, 2010 [facility] [place] [facility] [address] [id number] [place] [address]- 5274 12 Jan, 2010 [facility] [place] [facility] [address] [id number] [place] [address]- 3470 Jan, [facility] [address] [id number] [place] [address]- 0256 Jan, [facility] [address] [id number] [place] [address]- 9026 Oct, [facility] [address] [id number] [place] [address] Oct, [facility] [id number] [address] Apr, [facility] [address] [id number] [address] Mar, [facility] [id number] [address] Mar, [facility] [id number] [address] Jan, [facility] [id number] [address] Dec, IMMUNIZATIONS No Known Immunizations SOCIAL HISTORY Never Assessed REASON FOR VISIT PLAN OF CARE Activity Details Follow Up First Available Reason:Restorative VITAL SIGNS Heart Rate 64 bpm 2016-12-06 Blood pressure systolic 128 mmHg 2016-12-06 Blood pressure diastolic 82 mmHg 2016-12-06 MEDICATIONS Medication Instructions Dosage Frequency Start Date End Date Duration Status ProAir HFA 108 (90 Base) MCG/ACT Inhalation every 4 hrs 2 puffs as needed 4h May, Active amitriptyline 150 mg by oral route Once a day 1 tablet 24h Jun, Active Atenolol 100 MG orally once 1 tablet by Oral route 1 time per day Jun Active Norvasc 5 mg Orally 2 times a day 1 tablet by Oral route 2 times per day 12h Active Gabapentin 300 MG Orally 3 times a day 1 capsule by Oral route 3 times per day 8h Active Levemir Flexpen 100 UNIT/ML Subcutaneous 2 times a day Inject 25 units in AM and PM 12h Sep, Active Hydrochlorothiazide 50MG 1 tablet Once a day Orally 60 Active Vytorin 10-40 MG Orally Once a day 1 tablet 24h Active Hydrochlorothiazide 50 mg 1 tablet Once a day Orally Active Diclofenac Sodium 50MG DR Orally Three times a day 1 tablet 8h Active Atenolol 100MG TAKE ONE TABLET BY MOUTH ONCE DAILY 30 Active Pen [place] 32G X 4 MM subcutaneously 2 times a day as directed 12h Feb Active Amlodipine Besylate 5MG TAKE ONE TABLET BY MOUTH TWICE DAILY 30 Active Flonase 50 MCG/ACT Nasally Once a day 1 spray in each nostril 24h 25 Feb, 2015 Active Metformin HCl 1000MG Orally Twice a day 1 tablet with meals 12h 90 Active RESULTS No Results PROCEDURES Procedure Date Ordered Result Body Site COMP ORAL EVALUATION - NEW/EST PT Dec 06, 2016 INTRAORL-PERIAPICAL 1 FILM 86352 Dec 06, 2016 INTRAORL-PERIAPICAL EA ADD FILM Dec 06, 2016 INTRAORL-PERIAPICAL EA ADD FILM Dec 06, 2016 PROPHYLAXIS - ADULT Dec 06, 2016 BITEWINGS - FOUR FILMS Dec 06, 2016 INSTRUCTIONS MEDICATIONS ADMINISTERED No Known Medications MEDICAL [...]
--- OUTSIDE RECORDS SUMMARY | 2018-02-13 04:03 | XMS REPORT ---
Author Author NICHELLE VALENZUELA [facility] eClinicalWorks Address Unknown Phone Unavailable Care Team Providers Care Bundle Helper Name Role Phone NICHELLE VALENZUELA Unavailable Allergies [...] Instructions Start Date End Date Status Dosage Vytorin [facility] [id number] 10-40 MG Orally Once a day 1 tablet Results No Known Results Summary Purpose eClinicalWorks Submission
--- OUTSIDE RECORDS SUMMARY | 2018-02-13 04:04 | XMS REPORT ---
Author Author HILLARY YUSUF [facility] Address [address] [place] [address] Care Team Providers Care Instructional Resource Teacher Name Role Phone HILLARY YUSUF Unavailable PROBLEMS Type Condition ICD9-CM Code OQG04-TS Code Onset Dates Condition Status SNOMED Code Problem Asthma J45.909 Active 101265022 Problem Reactive depression F32.9 Active 89468486 Problem Secondary hypertension I15.9 Active 81682070 Problem Open bite of left hand, initial encounter S61.452A Active 398902466 Problem Bitten by cat, initial encounter W55.01XA Active 147173821 Problem Moderate persistent asthma with exacerbation J45.41 Active 382094398 Problem Bronchitis J40 Active 52956595 Problem Simple chronic bronchitis J41.0 Active 91946176 Problem Recurrent major depressive disorder, in full remission F33.42 Active 619605744 Problem Renal failure N19 Active 51840712 Problem Joint pain of left hip on movement M25.552 Active 155054659 Problem Hypercholesterolemia E78.00 Active 49999417 Problem Environmental allergies Z91.09 Active 184732808 Problem PVD (peripheral vascular disease) I73.9 Active 951470264 Problem Diabetes mellitus E11.9 Active 74938865 Problem Proteinuria R80.9 Active 77464852 Problem Insomnia G47.00 Active 040770182 Problem Neuropathy G62.9 Active 112417362 Problem GERD (gastroesophageal reflux disease) K21.9 Active 075422803 ALLERGIES Substance Reaction Event Type Date Status Stadol Unknown Drug Allergy Apr, Active Glucotrol Unknown Drug Allergy Apr, Active ENCOUNTERS Encounter Location Date Diagnosis [facility] [id number] [address] Sep, Diabetes mellitus E11.9 and Medication management Z79.899 [facility] [address] [place] [address] 12401- 6401 Sep, [facility] [address] [address]- [address] August, Neuropathy G62.9 [facility] [place] [address] [address] August, Open bite of left hand, initial encounter S61.452A ; Encounter for immunization Z23 and Bitten by cat, initial encounter W55.01XA [place] [address] [address] Jul, Environmental allergies Z91.09 [place] [address] 84292- 8185 Jun, [place] [address] [address]- [address] 14 Jun, 2017 Simple chronic bronchitis J41.0 ; PVD (peripheral vascular disease) I73.9 and Recurrent major depressive disorder, in full remission F33.42 [facility] [address] [id number] Jun, 2017 Dental examination Z01.20 [facility] [address] [address] Jun, Moderate persistent asthma with exacerbation J45.41 [place] [address] 01340- 8419 May, Neuropathy G62.9 and Diabetes mellitus E11.9 [place] [address] 50364- 7171 Apr, [facility] [address] [address] Apr, Cough R05 [place] [address] 79745- 5621 Feb, [place] [address] 87431- 4521 Feb, [facility] [id number] [place] [address] 42515- 8483 Feb, Diabetes mellitus E11.9 ; Neuropathy G62.9 ; Joint pain of left hip on movement M25.552 and Encounter for immunization Z23 [facility] [id number] [place] [address] 60773- 0219 13 Feb, 2017 [facility] [address] 38221- 8587 Feb, Diabetes mellitus E11.9 [facility] [address] 77256- 6137 Feb, [facility] [address] 40276- 8142 Jan, [facility] [id number] [place] [address] 71400- 7945 Jan, Secondary hypertension I15.9 [facility] [id number] [place] [address] 23311- 2462 Dec, Diabetes mellitus E11.9 [facility] [address] [id number] Nov, Encounter for dental examination Z01.20 [facility] [id number] [place] [address] 06623 -6102 Oct, Allergic contact dermatitis due to plants, except food L23.7 [facility] [id number] [place] [address] 71580- 2308 Oct, [facility] [id number] [place] [address] 59513- 9604 Oct, Diabetes mellitus E11.9 ; PVD (peripheral vascular disease) I73.9 ; Neuropathy G62.9 ; GERD (gastroesophageal reflux disease) K21.9 ; Insomnia G47.00 ; Environmental allergies Z91.09 ; Secondary hypertension I15.9 ; Reactive depression F32.9 ; Hypercholesterolemia E78.00 and Joint pain of left hip on movement M25.552 [facility] [id number] [place] [address] 58782- 0213 Sep, Diabetes mellitus E11.9 [facility] [id number] [place] [address] 05662- 9789 Sep, Diabetes mellitus E11.9 [facility] [id number] [place] [address] 96044- 8687 Sep, Diabetes mellitus E11.9 [facility] [id number] [place] [address] 56019- 9592 Sep, Neuropathy G62.9 [facility] [address] 23196- 0484 August, [facility] [id number] [place] [address] 82351- 2508 Jul, [facility] [address] 75743- 9077 Jun, [facility] [id number] [place] [address] 55801- 4735 Jun, Diabetes mellitus E11.9 ; PVD (peripheral vascular disease) I73.9 ; Neuropathy G62.9 ; Joint pain of left hip on movement M25.552 ; Renal failure N19 ; Asthma J45.909 ; Reactive depression F32.9 ; Pure hypercholesterolemia, unspecified E78.00 and Insomnia G47.00 [facility] [id number] [place] [address] 75440- 5304 Jun, Joint pain of left hip on movement M25.552 and Diabetes mellitus E11.9 [facility] [id number] [place] [address] 78355- 2036 Jun, [facility] [id number] [place] [address] 19051 -1303 May, Cough R05 and Bronchitis J40 [facility] [id number] [place] [address] 96954- 8001 May, [facility] [address] [place] [address] 09650- 2832 May, [facility] [id number] [place] [address] 62806- 1403 May, Asthma J45.909 and Bronchitis J40 [facility] [id number] [place] [address] 40358- 7096 May, [facility] [id number] [place] [address] 17236- 1160 May, Bronchitis J40 [facility] [id number] [place] [address] 87446- 7414 May, [facility] [id number] [place] [address] 42857- 6310 Apr, Diabetes mellitus E11.9 ; PVD (peripheral vascular disease) I73.9 ; GERD (gastroesophageal reflux disease) K21.9 ; Asthma J45.909 ; Insomnia G47.00 ; Environmental allergies Z91.09 ; Secondary hypertension I15.9 ; Joint pain of left hip on movement M25.552 ; Hypercholesterolemia E78.0 and Reactive depression F32.9 [place] [id number] [place] [address] 91317- 0072 Mar, Diabetes mellitus E11.9 ; PVD (peripheral vascular disease) I73.9 and Hypercholesterolemia E78.0 [place] [address] [place] [address] 86222- 4031 Mar, Diabetes mellitus E11.9 and Hypercholesterolemia E78.0 [facility] [id number] [place] [address] 05996- 1854 Mar, [place] [id number] [place] [address] 93917- 8556 Feb, [facility] [id number] [place] [address] 08493- 3995 Feb, [facility] [id number] [place] [address] 74602- 3731 Feb, [place] [id number] [place] [address] 11366- 6421 Jan, Encounter for immunization Z23 [place] [id number] [place] [address] 42718- 1275 Jan, [place] [address] 45022- 5151 Dec, [place] [id number] [place] [address] 68021- 7878 Dec, Diabetes mellitus E11.9 ; PVD (peripheral vascular disease) I73.9 ; GERD (gastroesophageal reflux disease) K21.9 ; Insomnia G47.00 ; Joint pain of left hip on movement M25.552 ; Asthma J45.909 ; Environmental allergies Z91.09 ; Hypercholesterolemia E78.0 ; Essential hypertension I10 and Neuropathy G62.9 [place] [id number] [place] [address] 14330- 5599 Nov, [place] [id number] [place] [address] 10351- 4976 Nov, [place] [id number] [place] [address] 60124- 0170 Oct, PVD (peripheral vascular disease) I73.9 and Diabetes mellitus E11.9 [place] [address] [place] [address] 26090- 3561 Sep, Diabetes mellitus E11.9 ; PVD (peripheral vascular disease) I73.9 ; Neuropathy G62.9 ; Joint pain of left hip on movement M25.552 ; GERD ( gastroesophageal reflux disease) K21.9 ; Asthma J45.909 ; Insomnia G47.00 ; Secondary hypertension I15.9 and Hypercholesteremia E78.0 [place] [id number] [place] [address] 48998- 5880 August, [place] [address] [place] [address]- 3354 August, Neuropathy G62.9 [facility] [id number] [place] [address] 73404- 4947 August, Neuropathy G62.9 [facility] [id number] [place] [address] 04396- 9447 30 Jun, 2015 Diabetes mellitus E11.9 ; Joint pain of left hip on movement M25.552 ; PVD (peripheral vascular disease) I73.9 ; Neuropathy G62.9 ; GERD (gastroesophageal reflux disease) K21.9 ; Asthma J45.909 ; Insomnia G47.00 ; Environmental allergies Z91.09 ; HTN (hypertension) I10 and Hypercholesteremia E78.0 [facility] [id number] [place] [address] 49773- 9183 Jun, [facility] [address] 70999- 7420 Jun, [facility] [id number] [place] [address] 74386- 2071 Jun, [facility] [id number] [place] [address] 88317- 0279 Apr, [facility] [id number] [place] [address] 41869- 1841 Apr, [facility] [id number] [place] [address] 44583- 1501 Apr, Sinusitis J32.9 [facility] [id number] [place] [address] 89010- 3505 Apr, Neuropathy G62.9 [facility] [id number] [place] [address] 19614- 1241 Mar, [facility] [id number] [place] [address] 63687- 4549 Mar, [facility] [id number] [place] [address] 93150- 4000 Mar, Diabetes mellitus E11.9 ; PVD (peripheral vascular disease) I73.9 ; Neuropathy G62.9 ; GERD (gastroesophageal reflux disease) K21.9 ; Renal failure N19 ; Asthma J45.909 ; Insomnia G47.00 ; Environmental allergies Z91.09 ; Sinusitis J32.9 ; Cough R05 ; Edema R60.9 ; HTN (hypertension) I10 and Hypercholesterolemia E78.0 [facility] [address] 40726 -2157 Mar, Dysuria R30.0 ; Vomiting, unspecified R11.10 ; Benign essential hypertension I10 and Dizziness R42 [facility] [address] 42333- 9894 Mar, [facility] [address] 92728- 9189 Mar, [facility] [address] 38775- 8732 Feb, [facility] [address] 19689- 5502 Feb, [facility] [address] 55192- 1034 Feb, [facility] [address] 48790- 7239 Feb, [facility] [address] 40546- 9574 Feb, Joint pain of left hip on movement M25.552 ; Lumbago M54.5 and UTI (urinary tract infection) N39.0 [facility] [address] 97150- 3735 Feb, [facility] [address] 48958- 5763 Feb, [facility] [address] 27242- 7306 Jan, [facility] [address] [address]- 9932 Jan, [facility] [id number] [place] [address] 84781- 7975 Jan, [facility] [address] [place] [address] 37584- 5198 Jan, [facility] [id number] [place] [address] 02786- 2722 Jan, 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 [facility] [address] [place] [address] 78858- 4075 30 Dec, 2014 Hypertension 401.9 and Diabetes 250.00 [facility] [address] [place] [address] 25644- 1997 Dec, Diabetes 250.00 ; Influenza vaccine administered V04.81 ; Unspecified peripheral vascular disease 443.9 ; Issue of repeat prescriptions V68.1 ; Unspecified hereditary and idiopathic peripheral neuropathy 356.9 ; Insomnia, unspecified 780.52 ; Hypercholesteremia 272.0 ; Pain in joint, site unspecified 719.40 ; Dizziness 780.4 and PCV-13 (PREVNAR) DX V03.82 [facility] [address] [address]- 1568 Dec, [facility] [address] [address]- 3309 Dec, [facility] [address] [address]- 9326 Dec, [facility] [address] [place] [address] 83269- 4639 Dec, [facility] [address] [place] [address] 23162- 6980 Dec, [facility] [address] [address]- 2654 Dec, [facility] [address] [place] [address] 48132- 1528 Nov, [place] [address] [place] [address] 98059- 0819 Nov, Environmental allergies V15.09 ; Sacroiliitis, not elsewhere classified 720.2 and Cough 786.2 [place] [address] [place] [address] 79917- 2634 Oct, [place] [id number] [place] [address] 29243- 4419 Oct, [place] [address] [place] [address] 86539- 0516 Oct, [place] [id number] [place] [address] 41172- 4371 Sep, [place] [address] [place] [address] 45549- 8831 Sep, [place] [address] [place] [address] 98397- 0561 Sep, Dysuria 788.1 and Diabetes with other specified manifestations, type II or unspecified type, not stated as uncontrolled 250.80 [place] [address] [place] [address] 96764- 5171 Sep, [place] [address] [place] [address] 63627- 8814 Sep, Diabetes with other specified manifestations, type II or unspecified type, not stated as uncontrolled 250.80 [place] [address] [place] [address] 67743- 3357 Sep, DM w/o complication type II 250.00 ; Unspecified peripheral vascular disease 443.9 ; Pain in joint, pelvic region and thigh 719.45 ; Asthma , unspecified, unspecified status 493.90 ; Hypercholesteremia 272.0 ; Fatigue 780.79 ; UTI (lower urinary tract infection) 599.0 and Essential hypertension 401.9 [address] [address]- 9521 Sep, [facility] [address] [address]- 3104 Sep, [facility] [address] [address]- 9188 Sep, [facility] [address] [address]- 1457 August, [facility] [address] [address]- 4226 August, [facility] [id number] [place] [address] 517610- 3563 August, Diabetes with other specified manifestations, type II or unspecified type, not stated as uncontrolled 250.80 [facility] [address] [address]- 3261 Jul, Peripheral vascular disease 443.9 [facility] [address] [address]- 7582 Jul, [facility] [address] [address]- 2863 Jul, [facility] [address] [address]- 5020 Jun, [facility] [id number] [address]- 2544 27 Jun, 2014 [facility] [address] [address]- 6895 14 Jun, 2014 [facility] [address] [address]- 8180 Jun, [facility] [address] 0561 Jun, [facility] [id number] 8172 Jun, [facility] [place] [facility] [address] [id number] [place] [address]- 9001 Jun, [facility] [place] [facility] [address] [id number] [place] [address]- 9424 Jun, 2014 [facility] [place] [facility] [address] [id number] [place] [address]- 9315 Jun, 2014 [facility] [place] [facility] [address] [id number] [place] [address]- 3972 May, 2014 [facility] [place] [facility] [address] [id number] [place] [address]- 5031 May, 2014 [facility] [place] [facility] [address] [id number] [place] [address]- 6384 May, 2014 [facility] [place] [facility] [address] [facility] [id number] [place] [address]- 2828 May, 2014 [facility] [place] [facility] [address] [id number] [place] [address]- 7709 May, 2014 [facility] [place] [facility] [address] [id number] [place] [address]- 7645 May, 2014 [facility] [place] [facility] [address] [facility] [id number] [place] [address]- 3868 May, 2014 [facility] [place] [facility] [address] [facility] [id number] [place] [address]- 8509 May, 2014 [facility] [place] [facility] [address] [id number] [place] [address]- 6122 May, 2014 [facility] [place] [facility] [address] [id number] [place] [address]- 2171 May, 2014 [facility] [place] [facility] [address] [id number] [place] [address]- 2186 May, 2014 [facility] [place] [facility] [address] [facility] [id number] [place] [address]- 6182 May, 2014 [facility] [place] [facility] [address] [facility] [id number] [place] [address]- 6863 May, [facility] [address] [id number] [place] [address]- 8611 Apr, [facility] [address] [id number] [place] [address]- 7312 Apr, [facility] [address] [id number] [place] [address]- 8196 Apr, [facility] [address] [id number] [place] [address]- 7864 Apr, [facility] [address] [id number] [place] [address]- 1645 Apr, [facility] [address] [id number] [place] [address]- 3427 Apr, [facility] [address] [id number] [place] [address]- 1884 Apr, [facility] [address] [id number] [place] [address]- 6184 Apr, [facility] [address] [id number] [place] [address]- 9819 Mar, [facility] [address] [id number] [place] [address]- 9856 Mar, [facility] [address] [id number] [place] [address]- 8432 Mar, [facility] [address] [id number] [place] [address]- 4778 Mar, [facility] [place] [facility] [address] [id number] [place] [address] Mar, [facility] [place] [facility] [address] [id number] [place] [address] Mar, [facility] [address] [id number] [place] [address] Mar, [facility] [place] [facility] [address] [id number] [place] [address] Mar, [facility] [place] [facility] [address] [id number] [place] [address] Mar, [facility] [place] [facility] [address] [id number] [place] [address] Mar, [facility] [place] [facility] [address] [id number] [place] [address] Mar, [facility] [place] [facility] [address] [id number] [place] [address] Mar, [facility] [place] [facility] [address] [id number] [place] [address]- [address] Mar, [facility] [place] [facility] [address] [id number] [place] [address] Mar, [facility] [place] [facility] [address] [id number] [place] [address] Feb, [facility] [place] [facility] [address] [id number] [place] [address] Feb, [facility] [place] [facility] [address] [id number] [place] [address] Feb, [facility] [place] [facility] [address] [id number] [place] [address] Feb, [facility] [place] [facility] [address] [id number] [address] Feb, [facility] [place] [facility] [address] [id number] [place] [address] Feb, [facility] [place] [facility] [address] [id number] [place] [address] Feb, [facility] [place] [facility] [address] [id number] [address] Feb, [facility] [place] [facility] [address] [id number] [place] [address] Feb, [facility] [place] [facility] [address] [id number] [place] [address] Feb, [facility] [place] [facility] [address] [id number] [place] [address] Feb, [facility] [place] [facility] [address] [facility] [id number] [place] [address] Feb, [facility] [place] [facility] [address] [id number] [place] [address] Feb, [facility] [place] [facility] [address] [id number] [place] [address] Feb, [facility] [place] [facility] [address] [id number] [place] [address]- [address] Feb, [facility] [place] [facility] [address] [facility] [id number] [place] [address] Feb, [facility] [place] [facility] [address] [id number] [place] [address] Jan, [facility] [place] [facility] [address] [facility] [id number] [place] [address] Jan, [facility] [place] [facility] [address] [facility] [facility] [id number] [place] [address] Jan, [facility] [place] [facility] [address] [id number] [address] Jan, [facility] [place] [facility] [address] [id number] [place] [address] Jan, [facility] [place] [facility] [address] [id number] [place] [address] 0957 Jan, [facility] [place] [facility] [address] [facility] [id number] [place] [address]- 8281 Jan, [facility] [place] [facility] [address] [facility] [id number] [place] [address]- 7904 Jan, [facility] [place] [facility] [address] [id number] [place] [address] 1610 Dec, [facility] [place] [facility] [address] [id number] [place] [address]- 1646 Dec, [facility] [place] [facility] [address] [id number] [place] [address]- 93[address] Nov, [facility] [place] [facility] [address] [id number] [place] [address]- 9012 Nov, [facility] [place] [facility] [address] [id number] [place] [address] 3432 Nov, [facility] [place] [facility] [address] [id number] [place] [address]- 9962 Nov, [facility] [place] [facility] [address] [id number] [place] [address]- 3112 Nov, [facility] [place] [facility] [address] [id number] [place] [address]- 9734 Nov, [facility] [place] [facility] [address] [id number] [place] [address]- 9713 Oct, [facility] [place] [facility] [address] [id number] [place] [address]- 0036 Oct, [facility] [place] [facility] [address] [id number] [place] [address]- 2053 Oct, [facility] [place] [facility] [address] [id number] [place] [address]- 3654 Oct, [facility] [place] [facility] [address] [id number] [place] [address]- 5596 Sep, [facility] [place] [facility] [address] [id number] [place] [address]- 0207 Sep, [facility] [place] [facility] [address] [id number] [place] [address]- 3639 Sep, [facility] [place] [facility] [address] [id number] [place] [address]- 2894 Sep, [facility] [place] [facility] [address] [id number] [place] [address]- 6136 Sep, [facility] [place] [facility] [address] [id number] [place] [address]- 0003 Sep, [facility] [place] [facility] [address] [id number] [place] [address]- 9222 August, [facility] [place] [facility] [address] [id number] [place] [address]- 8476 August, [facility] [place] [facility] [address] [id number] [place] [address]- 0783 August, [facility] [place] [facility] [address] [id number] [place] [address]- 8201 August, [facility] [place] [facility] [address] [id number] [place] [address]- 7025 August, [facility] [place] [facility] [address] [id number] [place] [address]- 8312 August, [facility] [place] [facility] [address] [id number] [place] [address]- 8570 August, [facility] [place] [facility] [address] [id number] [place] [address]- 9849 August, [facility] [place] [facility] [address] [id number] [place] [address]- 7727 August, [facility] [place] [facility] [address] [id number] [place] [address]- 7201 August, [facility] [place] [facility] [address] [id number] [place] [address]- 7906 August, [facility] [place] [facility] [address] [id number] [place] [address]- 8563 August, [facility] [place] [facility] [address] [id number] [place] [address]- 4140 Jul, [facility] [place] [facility] [address] [id number] [place] [address]- 4868 Jul, [facility] [place] [facility] [address] [id number] [place] [address]- 1547 Jul, [facility] [place] [facility] [address] [id number] [place] [address]- 8120 Jul, [facility] [place] [facility] [address] [id number] [place] [address]- 7430 Jul, [facility] [place] [facility] [address] [id number] [place] [address]- 3523 Jul, [facility] [place] [facility] [address] [id number] [place] [address]- 4341 Jul, [facility] [place] [facility] [address] [id number] [place] [address]- 1575 Jul, [facility] [place] [facility] [address] [id number] [place] [address]- 8314 Jul, [facility] [place] [facility] [address] [id number] [place] [address]- 3222 Jul, [facility] [place] [facility] [address] [id number] [place] [address]- 5740 Jul, [facility] [place] [facility] [address] [id number] [place] [address]- 4255 Jun, [facility] [place] [facility] [address] [id number] [place] [address]- 0477 Jun, [facility] [place] [facility] [address] [id number] [place] [address]- 4800 Jun, [facility] [place] [facility] [address] [id number] [place] [address]- 4466 Jun, [facility] [place] [facility] [address] [id number] [place] [address]- 4819 Jun, [facility] [place] [facility] [address] [id number] [place] [address]- 3713 Jun, [facility] [place] [facility] [address] [id number] [place] [address]- 0377 Jun, [facility] [place] [facility] [address] [id number] [place] [address]- 0687 Jun, [facility] [place] [facility] [address] [id number] [place] [address]- 7720 Jun, [facility] [place] [facility] [address] [id number] [place] [address]- 2987 May, [facility] [place] [facility] [address] [id number] [place] [address]- 6220 May, [facility] [place] [facility] [address] [id number] [place] [address]- 8847 May, [facility] [place] [facility] [address] [id number] [place] [address]- 0301 Apr, [facility] [place] [facility] [address] [id number] [place] [address]- 2816 Apr, [facility] [place] [facility] [address] [id number] [place] [address]- 5811 Apr, [facility] [place] [facility] [address] [id number] [place] [address]- 1282 Apr, [facility] [place] [facility] [address] [id number] [place] [address]- 2718 Apr, [facility] [place] [facility] [address] [id number] [place] [address]- 0699 Apr, [facility] [place] [facility] [address] [id number] [place] [address]- 1409 Apr, [facility] [place] [facility] [address] [id number] [place] [address]- 5884 Apr, [facility] [place] [facility] [address] [id number] [place] [address]- 9857 Mar, [facility] [place] [facility] [address] [id number] [address]- 5195 05 Mar, 2013 [facility] [place] [facility] [address] [id number] [place] [address]- 5050 Feb, [facility] [place] [facility] [address] [id number] [place] [address]- 9071 Feb, [facility] [place] [facility] [address] [id number] [place] [address]- 6571 Jan, [facility] [place] [facility] [address] [id number] [place] [address]- 6972 Jan, [facility] [place] [facility] [address] [id number] [place] [address]- 3143 Jan, [facility] [place] [facility] [address] [id number] [place] [address]- 7421 Jan, [facility] [place] [facility] [address] [id number] [place] [address]- 3322 24 Jan, 2013 [facility] [place] [facility] [address] [id number] [place] [address]- 1374 24 Jan, 2013 [facility] [place] [facility] [address] [id number] [place] [address]- 8705 Jan, [facility] [place] [facility] [address] [id number] [place] [address]- 6755 Jan, [facility] [place] [facility] [address] [id number] [place] [address]- 2589 17 Jan, 2013 [facility] [place] [facility] [address] [id number] [place] [address]- 6524 17 Jan, 2013 [facility] [place] [facility] [address] [id number] [place] [address]- 9870 14 Jan, 2013 [facility] [place] [facility] [address] [id number] [place] [address]- 9469 14 Jan, 2013 [facility] [place] [facility] [address] [id number] [place] [address]- 1203 10 Jan, 2013 [facility] [place] [facility] [address] [id number] [place] [address]- 5158 10 Jan, 2012 [facility] [place] [facility] [address] [id number] [place] [address]- 6955 10 Jan, 2012 [facility] [place] [facility] [address] [id number] [place] [address]- 2099 10 Jan, 2012 [facility] [place] [facility] [address] [id number] [place] [address]- 1711 09 Jan, 2012 [facility] [place] [facility] [address] [id number] [place] [address]- 2846 09 Jan, 2012 [facility] [place] [facility] [address] [id number] [place] [address]- 5943 08 Jan, 2012 [facility] [place] [facility] [address] [id number] [place] [address]- 4935 Jan, 2012 [facility] [place] [facility] [address] [id number] [place] [address]- 1223 Jan, 2012 [facility] [place] [facility] [address] [id number] [place] [address]- 9621 04 Jan, 2013 [facility] [place] [facility] [address] [id number] [place] [address]- 7460 Jan, [facility] [place] [facility] [address] [id number] [place] [address]- 7640 17 Dec, 2012 [facility] [place] [facility] [address] [id number] [place] [address]- 2544 16 Dec, 2012 [facility] [place] [facility] [address] [id number] [place] [address]- 2542 Nov, [facility] [place] [facility] [address] [id number] [place] [address]- 2546 Oct, [facility] [place] [facility] [address] [id number] [place] [address]- 2546 Oct, [facility] [place] [facility] [address] [id number] [place] [address]- 5716 Oct, [facility] [address] [id number] [place] [address]- 9989 Oct, [facility] [place] [facility] [address] [id number] [place] [address]- 5491 Oct, [facility] [place] [facility] [address] [id number] [place] [address]- 5602 Oct, [facility] [place] [facility] [address] [id number] [place] [address]- 6567 Sep, [facility] [place] [facility] [address] [id number] [place] [address]- 8327 Sep, [facility] [place] [facility] [address] [id number] [place] [address]- 7090 Sep, [facility] [place] [facility] [address] [id number] [place] [address]- 0983 Jul, [facility] [place] [facility] [address] [id number] [place] [address]- 9202 Jul, [facility] [place] [facility] [address] [id number] [place] [address]- 4901 Jul, [facility] [place] [facility] [address] [id number] [place] [address]- 1755 Jun, [facility] [place] [facility] [address] [id number] [place] [address]- 9185 Jun, [facility] [place] [facility] [address] [id number] [place] [address]- 0503 Jun, [facility] [place] [facility] [address] [id number] [place] [address]- 0408 Jun, [facility] [place] [facility] [address] [id number] [place] [address]- 5028 Jun, [facility] [place] [facility] [address] [id number] [place] [address]- 7035 Jun, [facility] [place] [facility] [address] [id number] [place] [address]- 0359 07 May, 2012 [facility] [address] [id number] [place] [address]- 4206 May, [facility] [place] [facility] [address] [id number] [place] [address]- 4036 Apr, [facility] [address] [id number] [place] [address]- 0466 Apr, [facility] [place] [facility] [address] [id number] [place] [address] 254 Apr, [facility] [address] [id number] [place] [address]- 5190 Apr, [facility] [place] [facility] [address] [id number] [place] [address]- 0091 Apr, [facility] [address] [id number] [place] [address]- 6612 31 Mar, 2012 [facility] [address] [id number] [place] [address]- 8394 31 Mar, 2012 [facility] [place] [facility] [address] [id number] [place] [address] 2544 27 Mar, 2012 [facility] [address] [facility] [id number] [place] [address]- 2543 27 Mar, 2012 [facility] [place] [facility] [address] [id number] [place] [address] 2546 14 Mar, 2012 [facility] [place] [facility] [address] [id number] [place] [address] 2546 14 Mar, 2012 [facility] [place] [facility] [address] [id number] [place] [address] 2546 10 Mar, 2012 [facility] [place] [facility] [address] [id number] [place] [address] 2546 10 Mar, 2012 [facility] [place] [facility] [address] [id number] [place] [address] 2546 Mar, [facility] [place] [facility] [address] [id number] [place] [address]- 6361 Mar, [facility] [place] [facility] [address] [id number] [place] [address]- 3062 Feb, [facility] [place] [facility] [address] [id number] [place] [address]- 6340 Feb, [facility] [place] [facility] [address] [id number] [place] [address], [place] [address]- 0794 Feb, [facility] [place] [facility] [address] [id number] [place] [address]- 2571 Feb, [facility] [place] [facility] [address] [id number] [place] [address]- 2390 Feb, [facility] [place] [facility] [address] [id number] [place] [address]- 0255 Feb, [facility] [place] [facility] [address] [id number] [place] [address]- 7024 Feb, [facility] [place] [facility] [address] [id number] [place] [address]- 4850 Feb, [facility] [place] [facility] [address] [id number] [place] [address]- 2931 Feb, [facility] [place] [facility] [address] [id number] [place] [address]- 8759 Feb, [facility] [place] [facility] [address] [id number] [place] [address]- 2364 Jan, [facility] [place] [facility] [address] [id number] [place] [address]- 0046 Jan, [facility] [place] [facility] [address] [id number] [place] [address]- 3824 Jan, [facility] [place] [facility] [address] [id number] [place] [address]- 6032 Jan, [facility] [place] [facility] [address] [id number] [place] [address]- 2546 28 Sep, 2011 [facility] [place] [facility] [address] [id number] [place] [address] 2546 25 Sep, 2011 [facility] [place] [facility] [address] [id number] [place] [address] 2546 18 Sep, 2011 [facility] [place] [facility] [address] [id number] [place] [address] 2546 18 Sep, 2011 [facility] [place] [facility] [address] [id number] [place] [address] 2546 17 Sep, 2011 [facility] [place] [facility] [address] [id number] [place] [address]- 9796 14 Sep, 2011 [facility] [place] [facility] [address] [id number] [place] [address]- 3296 13 Dec, 2011 [facility] [place] [facility] [address] [id number] [place] [address]- 0645 13 Dec, 2011 [facility] [place] [facility] [address] [id number] [place] [address]- 8411 06 Dec, 2011 [facility] [place] [facility] [address] [id number] [place] [address]- 3472 31 Nov, 2011 [facility] [place] [facility] [address] [id number] [place] [address]- 1274 30 Nov, 2011 [facility] [place] [facility] [address] [id number] [place] [address]- 2472 Nov, [facility] [place] [facility] [address] [id number] [place] [address]- 5842 Nov, [facility] [place] [facility] [address] [id number] [place] [address]- 3136 Sep, [facility] [place] [facility] [address] [id number] [place] [address]- 5723 Sep, [facility] [place] [facility] [address] [id number] [place] [address]- 7863 Sep, [facility] [place] [facility] [address] [id number] [place] [address]- 9716 August, [facility] [address] [id number] [place] [address]- 9736 August, [facility] [address] [id number] [place] [address]- 4696 August, [facility] [address] [id number] [place] [address]- 9959 August, [facility] [address] [id number] [place] [address]- 8672 August, [facility] [address] [id number] [place] [address]- 4932 August, [facility] [address] [id number] [place] [address]- 0956 August, [facility] [address] [id number] [place] [address]- 1390 August, [facility] [address] [id number] [place] [address]- 7844 August, [facility] [address] [id number] [place] [address]- 3289 Jul, [facility] [address] [id number] [place] [address]- 9117 Jun, [facility] [address] [id number] [place] [address]- 8956 16 Jun, 2011 [facility] [address] [id number] [place] [address]- 2546 Jun, [facility] [address] [id number] [place] [address]- 3096 06 Jun, 2011 [facility] [address] [id number] [place] [address]- 2546 05 Jun, 2011 [facility] [address] [id number] [place] [address]- 8226 Jun, [facility] [address] [id number] [place] [address]- 8268 Jun, [facility] [place] [facility] [address] [id number] [place] [address]- 5636 Jun, [facility] [place] [facility] [address] [id number] [place] [address]- 5081 27 May, 2011 [facility] [place] [facility] [address] [id number] [place] [address]- 4438 May, [facility] [place] [facility] [address] [id number] [place] [address]- 3258 20 May, 2011 [facility] [place] [facility] [address] [id number] [place] [address]- 0066 19 May, 2011 [facility] [place] [facility] [address] [id number] [place] [address]- 6436 17 May, 2011 [facility] [place] [facility] [address] [id number] [place] [address]- 3517 16 May, 2011 [facility] [place] [facility] [address] [id number] [place] [address]- 7577 14 May, 2011 [facility] [place] [facility] [address] [id number] [place] [address]- 1186 Apr, [facility] [place] [facility] [address] [id number] [place] [address]- 3003 16 Apr, 2011 [facility] [place] [facility] [address] [id number] [place] [address]- 6673 13 Apr, 2011 [facility] [place] [facility] [address] [id number] [place] [address] 11 Apr, 2011 [facility] [place] [facility] [address] [id number] [place] [address] 10 Apr, 2011 [facility] [place] [facility] [address] [id number] [place] [address] 09 Apr, 2011 [facility] [place] [facility] [address] [id number] [place] [address] 05 Apr, 2011 [facility] [address] [id number] [place] [address] Apr, [facility] [address] [id number] [place] [address] 29 Mar, 2011 [facility] [address] [id number] [place] [address] Mar, [facility] [address] [id number] [place] [address] 28 Feb, 2011 [facility] [address] [id number] [place] [address] Feb, [facility] [address] [id number] [place] [address] 17 Feb, 2011 [facility] [address] [id number] [place] [address] 16 Feb, 2011 [facility] [address] [id number] [place] [address] 16 Feb, 2011 [facility] [address] [id number] [place] [address] 24 Jan, 2011 [facility] [address] [id number] [place] [address] Nov, [facility] [place] [facility] [address] [id number] [place] [address] Sep, [facility] [place] [facility] [address] [id number] [place] [address] August, [facility] [place] [facility] [address] [id number] [place] [address] 16 Jun, 2010 [facility] [place] [facility] [address] [id number] [place] [address] 14 May, 2010 [facility] [place] [facility] [address] [id number] [place] [address] Apr, [facility] [address] [facility] [id number] [place] [address] Mar, [facility] [address] [facility] [id number] [place] [address] Mar, [facility] [address] [facility] [id number] [place] [address] Mar, [facility] [address] [facility] [id number] [place] [address] Feb, [facility] [address] [facility] [id number] [place] [address] Feb, [facility] [address] [facility] [id number] [place] [address] Jan, [facility] [address] [facility] [id number] [place] [address] Jan, [facility] [address] [facility] [id number] [place] [address] Jan, [facility] [address] [facility] [id number] [place] [address] Oct, [facility] [address] [facility] [id number] [place] [address] Oct, [facility] [address] [facility] [id number] [place] [address] Apr, [facility] [address] [facility] [id number] [place] [address] Mar, [facility] [address] [facility] [id number] [place] Mar, [facility] [address] [facility] [id number] [place] [address] Jan, [facility] [address] [facility] [id number] [place] [address] Dec, IMMUNIZATIONS No Known Immunizations SOCIAL HISTORY Never Assessed REASON FOR VISIT Cough, congestion, ear fullness JStrasserRNu PLAN OF CARE Activity Details Follow Up prn Reason: VITAL SIGNS Height 63 in 2017-04-22 Weight 137.4 lbs 2017-04-22 Temperature 98.2 degrees Fahrenheit 2017-04-22 Heart Rate 80 bpm 2017-04-22 Respiratory Rate 20 2017-04-22 BMI 24.34 kg/m2 2017-04-22 Blood pressure systolic 124 mmHg 2017-04-22 Blood pressure diastolic 70 mmHg 2017-04-22 MEDICATIONS Medication Instructions Dosage Frequency Start Date End Date Duration Status Albuterol Sulfate 90 mcg/actuation 2 puffs by Inhalation route every 4-6 hours as neededPRNcough or wheezing August, Not-Taking Metformin HCl 1000 MG Orally Twice a day 1 tablet with meals 12h Feb, 30 day(s) Active Flonase 50 MCG/ACT Nasally Once a day 1 spray in each nostril 24h Feb, Not-Taking Mucinex 600 MG Orally every 12 hrs 1 tablet as needed 12h May, Not-Taking Promethazine-Codeine 6.25-10 MG/5ML Orally every 6 hrs 5 ml as needed 6h May, Not-Taking ProAir HFA 108 (90 Base) MCG/ACT Inhalation every 4 hrs 2 puffs as needed 4h May, Not-Taking Amitriptyline HCl 150 MG Orally Once a day 1 tablet 24h Feb, 30 day(s) Active Diclofenac Sodium 50MG DR Orally Three times a day 1 tablet 8h Active Atenolol 100MG 1 tablet 24h 30 Active Celexa 20MG Orally Once a day 1 tablet 24h 30 Not-Taking Norvasc 5 mg Orally 2 times a day 1 tablet by Oral route 2 times per day 12h Active Pen [place] Sal[place] 32G X 4 MM subcutaneously 2 times a day use to Inject insulin 12h Feb, 90 days Active Celexa 20 mg Orally Once a day 1 tablet 24h Active Hydrochlorothiazide 50MG 1 tablet 24h 30 Active NyQuil Not-Taking Zofran ODT 8 mg 1 tablet by Oral route every 8 hours PRN nausea or vomiting Jun, Not-Taking Vytorin 10-40 MG Orally Once a day 1 tablet 24h Active Percocet 5-325 MG Orally every 6 hrs prn 1 tablet as needed Feb, Active Gabapentin 300MG Orally 3 times a day 1 capsule by Oral route 3 times per day 8h Active Levemir Flexpen 100 UNIT/ML Subcutaneous 2 times a day Inject 25 units in AM and PM 12h Active RESULTS Name Result Date Reference Range INFLUENZA A & B (IN HOUSE) 2017-04-22 INFLUENZA A negative INFLUENZA B negative Control + Lot # [id number] Exp date 2019-07-19 PROCEDURES Procedure Date Ordered Result Body Site INFLUENZA ASSAY W/OPTIC Apr 22, 2017 [facility] VISIT ESTABLISHED PATIENT Apr 22, 2017 INSTRUCTIONS MEDICATIONS ADMINISTERED No Known Medications [...]
[2018-02-13 04:05] LABS: BILIRUBIN,URINE NEGATIVE (NEGATIVE); CLARITY,URINE CLEAR; COLOR,URINE AMBER; GLUCOSE, URINE (UA) 2+ (NEGATIVE); KETONES,URINE NEGATIVE (NEGATIVE); LEUKOCYTE ESTERASE ,URINE NEGATIVE (NEGATIVE); NITRITE,URINE NEGATIVE (NEGATIVE); PH,URINE 7 (5-9); PROTEIN,URINE 1+ (NEGATIVE); UROBILINOGEN,URINE NORMAL (NORMAL)
--- OUTSIDE RECORDS SUMMARY | 2018-02-13 04:05 | XMS REPORT ---
Author Author Sebastian NICHELLE Organization [facility] Address [address] [place] [address] Care Team Providers Care Layout Artist Name Role Phone rodgerNICHELLE Mahmood Unavailable PROBLEMS Type Condition ICD9-CM Code TCG00-YT Code Onset Dates Condition Status SNOMED Code Problem Insomnia G47.00 Active 469798586 Problem Asthma J45.909 Active 825113201 Problem GERD (gastroesophageal reflux disease) K21.9 Active 640939872 Problem Simple chronic bronchitis J41.0 Active 85369214 Problem Recurrent major depressive disorder, in full remission F33.42 Active 220528482 Problem Reactive depression F32.9 Active 17221881 Problem Secondary hypertension I15.9 Active 61485381 Problem Moderate persistent asthma with exacerbation J45.41 Active 338862007 Problem Bronchitis J40 Active 30311950 Problem Hypercholesterolemia E78.00 Active 32548670 Problem Environmental allergies Z91.09 Active 720404772 Problem Proteinuria R80.9 Active 02100647 Problem Neuropathy G62.9 Active 501246505 Problem Renal failure N19 Active 21484674 Problem PVD (peripheral vascular disease) I73.9 Active 656051223 Problem Joint pain of left hip on movement M25.552 Active 789368262 Problem Diabetes mellitus E11.9 Active 30513462 ALLERGIES Substance Reaction Event Type Date Status Stadol Unknown Drug Allergy Oct, Active Glucotrol Unknown Drug Allergy Oct, Active ENCOUNTERS Encounter Location Date Diagnosis [facility] [address] [facility] [id number] [address] Jun, [facility] [address] [id number] [address] 14 Jun, 2017 Simple chronic bronchitis J41.0 ; PVD (peripheral vascular disease) I73.9 and Recurrent major depressive disorder, in full remission F33.42 [facility] [address] [id number] 13 Jun, 2017 Dental examination Z01.20 [facility] [address] [address] 04 Jun, 2017 Moderate persistent asthma with exacerbation J45.41 [facility] [id number] [place] [address] 59497- 1469 May, Neuropathy G62.9 [address] Diabetes mellitus E11.9 [facility] [address] [address]48- 5461 Apr, [facility] [address] [address] Apr, [address]05 [facility] [address] [address]- [address] Feb, [facility] [address] 11367- 1092 Feb, [facility] [id number] [place] [address] 82015- 1702 Feb, Diabetes mellitus E11.9 ; Neuropathy G62.9 ; Joint pain of left hip on movement M25.552 and Encounter for immunization Z23 [facility] [id number] [place] [address] 89703- 1954 Feb, [facility] [id number] [place] [address] 00380- 5784 Feb, Diabetes mellitus E11.9 [facility] [id number] [place] [address] 61225- 5672 Feb, [facility] [address] 38696- 5811 Jan, [facility] [id number] [place] [address] 23658- 4986 Jan, Secondary hypertension I15.9 [facility] [address] 29594- 4393 Dec, Diabetes mellitus E11.9 [facility] [address] [id number] [id number] Nov, Encounter for dental examination Z01.20 [facility] [address], [place] [address] Oct, Allergic contact dermatitis due to plants, except food L23.7 [facility] [id number] [place] [address] 64674- 3662 Oct, [facility] [id number] [place] [address] 13703- 1385 Oct, Diabetes mellitus E11.9 ; PVD (peripheral vascular disease) I73.9 ; Neuropathy G62.9 ; GERD (gastroesophageal reflux disease) K21.9 ; Insomnia G47.00 ; Environmental allergies Z91.09 ; Secondary hypertension I15.9 ; Reactive depression F32.9 ; Hypercholesterolemia E78.00 and Joint pain of left hip on movement M25.552 [facility] [address], [place] [address] 73[address] Sep, Diabetes mellitus E11.9 [facility] [id number] [place] [address] 03908- 3510 Sep, Diabetes mellitus E11.9 [facility] [address], [place] [address] 8291 Sep, Diabetes mellitus E11.9 [facility] [id number] [place] [address] 93308- 7007 Sep, Neuropathy G62.9 [facility] [address] [place] [address] 22874- 0024 August, [facility] [id number] [place] [address] 48993- 0223 Jul, [facility] [address], [place] [address] Jun, [facility] [address] 27983- 2560 Jun, Diabetes mellitus E11.9 ; PVD (peripheral vascular disease) I73.9 ; Neuropathy G62.9 ; Joint pain of left hip on movement M25.552 ; Renal failure N19 ; Asthma J45.909 ; Reactive depression F32.9 ; Pure hypercholesterolemia, unspecified E78.00 and Insomnia G47.00 [place] [address] 76756- 8576 Jun, Joint pain of left hip on movement M25.552 and Diabetes mellitus E11.9 [place] [address] 29067- 8461 Jun, [facility] [address] [address]69 May, Cough R05 and Bronchitis J40 [address] [address] 34461- 3485 May, [place] [address] 12399- 9792 May, [place] [address] 61772- 9524 May, Asthma J45.909 and Bronchitis J40 [place] [address] 78980- 7937 May, [place] [address] 34583- 2550 May, Bronchitis J40 [place] [address] 37966- 4941 May, [place] [address] 48641- 5199 Apr, Diabetes mellitus E11.9 ; PVD (peripheral vascular disease) I73.9 ; GERD (gastroesophageal reflux disease) K21.9 ; Asthma J45.909 ; Insomnia G47.00 ; Environmental allergies Z91.09 ; Secondary hypertension I15.9 ; Joint pain of left hip on movement M25.552 ; Hypercholesterolemia E78.0 and Reactive depression F32.9 [place] [address] 88510- 0345 Mar, Diabetes mellitus E11.9 ; PVD (peripheral vascular disease) I73.9 and Hypercholesterolemia E78.0 [place] [address] 31747- 3901 Mar, Diabetes mellitus E11.9 and Hypercholesterolemia E78.0 [place] [address] 17872- 8772 Mar, [place] [address] 70020- 5526 Feb, [place] [address] 99555- 0334 Feb, [place] [address] 63633- 7681 Feb, [place] [address] 46263- 8639 31 Jan, 2016 Encounter for immunization Z23 [place] [address] 15598- 5061 Jan, [place] [address] 47043- 8107 07 Dec, 2015 [place] [address] 93109- 1376 06 Dec, 2015 Diabetes mellitus E11.9 ; PVD (peripheral vascular disease) I73.9 ; GERD (gastroesophageal reflux disease) K21.9 ; Insomnia G47.00 ; Joint pain of left hip on movement M25.552 ; Asthma J45.909 ; Environmental allergies Z91.09 ; Hypercholesterolemia E78.0 ; Essential hypertension I10 and Neuropathy G62.[address] 8[address]85- 2750 Nov, [place] [id number] [place] [address] 95440- 4273 Nov, [place] [id number] [place] [address] 86427- 0055 Oct, PVD (peripheral vascular disease) I73.9 and Diabetes mellitus E11.9 [place] [address] 61395- 4572 Sep, Diabetes mellitus E11.9 ; PVD (peripheral vascular disease) I73.9 ; Neuropathy G62.9 ; Joint pain of left hip on movement M25.552 ; GERD ( gastroesophageal reflux disease) K21.9 ; Asthma J45.909 ; Insomnia G47.00 ; Secondary hypertension I15.9 and Hypercholesteremia E78.0 [place] [id number] [place] [address] 87710- 5013 August, [place] [id number] [place] [address] 82939- 4509 August, Neuropathy G62.9 [place] [id number] [place] [address] 13281- 2935 August, Neuropathy G62.9 [place] [id number] [place] [address] 22150- 5357 Jun, Diabetes mellitus E11.9 ; Joint pain of left hip on movement M25.552 ; PVD (peripheral vascular disease) I73.9 ; Neuropathy G62.9 ; GERD (gastroesophageal reflux disease) K21.9 ; Asthma J45.909 ; Insomnia G47.00 ; Environmental allergies Z91.09 ; HTN (hypertension) I10 and Hypercholesteremia E78.0 [place] [id number] [place] [address] 58090- 7856 Jun, [place] [id number] [place] [address] 49634- 5795 Jun, [place] [address] [place] [address]- 4011 Jun, [facility] [id number] [place] [address] 46455- 5732 Apr, [facility] [address] 50215- 9399 Apr, [facility] [address] 09056- 6462 Apr, Sinusitis J32.9 [facility] [address] 65529- 6655 Apr, Neuropathy G62.9 [facility] [address] 17863- 2775 Mar, [facility] [address] 18254- 7983 Mar, [facility] [address] 92138- 1918 Mar, Diabetes mellitus E11.9 ; PVD (peripheral vascular disease) I73.9 ; Neuropathy G62.9 ; GERD (gastroesophageal reflux disease) K21.9 ; Renal failure N19 ; Asthma J45.909 ; Insomnia G47.00 ; Environmental allergies Z91.09 ; Sinusitis J32.9 ; Cough R05 ; Edema R60.9 ; HTN (hypertension) I10 and Hypercholesterolemia E78.0 [facility] [id number] [place] [address] 87661 -2974 Mar, Dysuria R30.0 ; Vomiting, unspecified R11.10 ; Benign essential hypertension I10 [address]42 [facility] [id number] [place] [address] 15205- 9429 Mar, [facility] [address] 55651- 5307 Mar, [facility] [id number] [place] [address] 43214- 9711 Feb, [facility] [address] [address] 08[address] Feb, [facility] [id number] [place] [address] 94514- 1481 Feb, [facility] [address], [place] [address]- 9836 Feb, [facility] [id number] [place] [address] 15284- 0044 Feb, Joint pain of left hip on movement M25.552 ; Lumbago M54.5 and UTI (urinary tract infection) N39.0 [facility] [id number] [place] [address] 23807- 9372 Feb, [facility] [id number] [place] [address] 19007- 8229 Feb, [facility] [id number] [place] [address] 60787- 1638 Jan, [facility] [id number] [place] [address] 98915- 3384 Jan, [facility] [id number] [place] [address] 16606- 1448 Jan, [facility] [address], [place] [address]- 2886 Jan, [facility] [address], [place] [address]- 0524 Jan, 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 [facility] [address], [place] [address]- 3405 Dec, Hypertension 401.[address] [facility] [address], [place] [address]- 1846 Dec, Diabetes 250.00 ; Influenza vaccine administered V04.81 ; Unspecified peripheral vascular disease 443.9 ; Issue of repeat prescriptions V68.1 ; Unspecified hereditary and idiopathic peripheral neuropathy 356.9 ; Insomnia, unspecified 780.52 ; Hypercholesteremia 272.0 ; Pain in joint, site unspecified 719.40 ; Dizziness 780.4 and PCV-13 (PREVNAR) DX V03.82 [facility] [id number] [place] [address] 75009- 5476 Dec, [facility] [id number] [place] [address] 32741- 9752 Dec, [facility] [address] 92597- 6395 Dec, [facility] [address] 68118- 9592 Dec, [facility] [address] 19728- 0018 Dec, [facility] [id number] [place] [address] 61849- 5279 Dec, [facility] [id number] [place] [address] 88309- 6244 Nov, [facility] [address] 20826- 7590 Nov, Environmental allergies V15.09 ; Sacroiliitis, not elsewhere classified 720.[address] [facility] [id number] [place] [address] 63267- 3151 Oct, [facility] [id number] [place] [address] 82458- 1354 Oct, [facility] [id number] [place] [address] 81870- 2204 Oct, [facility] [address] 81663- 7651 Sep, [facility] [id number] [place] [address] 84414- 0456 Sep, [facility] [address] [place] [address]- 1801 Sep, Dysuria 788.1 and Diabetes with other specified manifestations, type II or unspecified type, not stated as uncontrolled 250.80 [facility] [address] [place] [address] 28636- 9198 Sep, [facility] [id number] [place] [address] 62226- 2943 Sep, Diabetes with other specified manifestations, type II or unspecified type, not stated as uncontrolled 250.80 [facility] [id number] [place] [address] 09452- 2129 Sep, DM w/o complication type II 250.00 ; Unspecified peripheral vascular disease 443.9 ; Pain in joint, pelvic region and thigh 719.45 ; Asthma , unspecified, unspecified status 493.90 ; Hypercholesteremia 272.0 ; Fatigue 780.79 ; UTI (lower urinary tract infection) 599.0 and Essential hypertension 401.9 [place] [id number] [place] [address] 41833- 0229 Sep, [facility] [id number] [place] [address] 27466- 5836 Sep, [facility] [address] [place] [address] 19643- 2737 Sep, [facility] [address] [address]- 7505 August, [facility] [id number] [place] [address] 42457- 0228 August, [facility] [id number] [place] [address] 55356- 4895 August, Diabetes with other specified manifestations, type II or unspecified type, not stated as uncontrolled 250.80 [facility] [address], [place] [address]- 4504 Jul, Peripheral vascular disease 443.9 [facility] [address] [address] [place] [address]- 9916 14 Jul, 2014 [facility] [place] [facility] [address] [id number] [place] [address]- 7643 13 Jul, 2014 [facility] [place] [facility] [address] [id number] [place] [address]- 8497 27 Jun, 2014 [facility] [place] [facility] [address] [id number] [place] [address]- 4758 27 Jun, 2014 [facility] [place] [facility] [address] [id number] [place] [address]- 6429 14 Jun, 2014 [facility] [place] [facility] [address] [id number] [place] [address]- 1392 13 Jun, 2014 [facility] [place] [facility] [address] [facility] [id number] [place] [address]- 9150 Jun, [facility] [place] [facility] [address] [facility] [id number] [place] [address]- 9384 Jun, [facility] [place] [facility] [address] [facility] [id number] [place] [address]- 6486 Jun, [facility] [place] [facility] [address] [id number] [place] [address]- 2854 04 Jun, 2014 [facility] [place] [facility] [address] [facility] [id number] [place] [address]- 5471 04 Jun, 2014 [facility] [place] [facility] [address] [id number] [place] [address]- 1138 May, 2014 [facility] [place] [facility] [address] [facility] [id number] [place] [address]- 8321 May, [facility] [place] [facility] [address] [id number] [place] [address]- 0136 24 May, 2014 [facility] [place] [facility] [address] [facility] [id number] [place] [address]- 2806 18 May, 2014 [facility] [place] [facility] [address] [facility] [id number] [place] [address]- 7690 May, [facility] [place] [facility] [address] [id number] [place] [address]- 3205 May, [facility] [place] [facility] [address] [id number] [place] [address]- 9257 May, 2014 [facility] [place] [facility] [address] [id number] [place] [address]- 3783 May, 2014 [facility] [place] [facility] [address] [id number] [place] [address]- 3886 May, 2014 [facility] [place] [facility] [address] [id number] [place] [address]- 2272 May, [facility] [place] [facility] [address] [id number] [place] [address]- 2840 May, [facility] [place] [facility] [address] [id number] [place] [address]- 9094 May, [facility] [place] [facility] [address] [id number] [place] [address]- 3056 May, [facility] [place] [facility] [address] [id number] [place] [address]- 9988 Apr, [facility] [place] [facility] [address] [id number] [place] [address]- 6451 Apr, [facility] [place] [facility] [address] [id number] [place] [address]- 2763 Apr, [facility] [place] [facility] [address] [id number] [place] [address]- 2163 Apr, [facility] [place] [facility] [address] [id number] [place] [address]- 7110 Apr, [facility] [place] [facility] [address] [id number] [place] [address]- 5345 Apr, [facility] [place] [facility] [address] [id number] [place] [address]- 9115 Apr, [facility] [place] [facility] [address] [id number] [place] [address]- 5186 Apr, [facility] [address] [id number] [place] [address]- 9594 Mar, [facility] [place] [facility] [address] [id number] [place] [address]- 6196 Mar, [facility] [place] [facility] [address] [id number] [place] [address]- 1451 Mar, [facility] [place] [facility] [address] [id number] [place] [address]- 0934 Mar, [facility] [place] [facility] [address] [id number] [place] [address]- 6534 Mar, [facility] [place] [facility] [address] [id number] [place] [address]- 4341 Mar, [facility] [place] [facility] [address] [id number] [place] [address]- 6564 Mar, [facility] [place] [facility] [address] [id number] [place] [address]- 8172 Mar, [facility] [place] [facility] [address] [id number] [place] [address]- 4913 Mar, [facility] [place] [facility] [address] [id number] [place] [address]- 1079 Mar, [facility] [place] [facility] [address] [id number] [place] [address]- 0794 Mar, [facility] [place] [facility] [address] [id number] [place] [address]- 8349 Mar, [facility] [place] [facility] [address] [id number] [place] [address]- 7856 Mar, [facility] [place] [facility] [address] [id number] [place] [address]- 5356 Mar, [facility] [place] [facility] [address] [id number] [place] [address]- 0657 Feb, [facility] [place] [facility] [address] [id number] [place] [address]- 7398 Feb, [facility] [place] [facility] [address] [id number] [place] [address]- 2251 Feb, [facility] [place] [facility] [address] [id number] [place] [address]- 1252 Feb, [facility] [place] [facility] [address] [id number] [place] [address]- 0270 Feb, [facility] [place] [facility] [address] [id number] [place] [address]- 3798 Feb, [facility] [place] [facility] [address] [id number] [place] [address]- 8580 Feb, [facility] [place] [facility] [address] [id number] [place] [address] Feb, [facility] [place] [facility] [address] [id number] [place] [address] Feb, [facility] [place] [facility] [address] [id number] [place] [address] Feb, [facility] [place] [facility] [address] [id number] [place] [address] Feb, [facility] [place] [facility] [address] [id number], [place] [address] Feb, [facility] [place] [facility] [address] [id number], [place] [address] Feb, [facility] [place] [facility] [address] [id number] [place] [address] Feb, [facility] [place] [facility] [address] [id number], [place] [address] Feb, [facility] [place] [facility] [address] [id number] [place] [address] Feb, [facility] [place] [facility] [address] [id number] [place] [address] Jan, [facility] [place] [facility] [address] [id number] [place] [address] Jan, [facility] [place] [facility] [address] [id number] [place] [address] Jan, [facility] [place] [facility] [address] [id number] [place] [address] Jan, [facility] [place] [facility] [address] [id number] [place] [address] Jan, [facility] [place] [facility] [address] [id number] [place] [address] Jan, [facility] [place] [facility] [address] [id number] [place] [address] Jan, [facility] [place] [facility] [address] [id number] [place] [address] Jan, [facility] [place] [facility] [address] [id number] [place] [address] Dec, [facility] [place] [facility] [address] [id number] [place] [address] Dec, [facility] [place] [facility] [address] [id number] [place] [address] Nov, [facility] [place] [facility] [address] [id number] [place] [address] Nov, [facility] [place] [facility] [address] [id number] [place] [address] Nov, [facility] [place] [facility] [address] [id number] [place] [address] Nov, [facility] [place] [facility] [address] [id number] [place] [address] Nov, [facility] [place] [facility] [address] [id number] [place] [address] Nov, [facility] [place] [facility] [address] [id number] [place] [address] Oct, [facility] [place] [facility] [address] [id number] [place] [address] Oct, [facility] [place] [facility] [address] [id number] [place] [address] Oct, [facility] [place] [facility] [address] [id number] [place] [address] Oct, [facility] [place] [facility] [address] [id number] [place] [address] Sep, [facility] [place] [facility] [address] [id number] [place] [address] Sep, [facility] [place] [facility] [address] [id number] [place] [address] Sep, [facility] [place] [facility] [address] [id number] [place] [address] Sep, [facility] [place] [facility] [address] [id number] [place] [address] Sep, [facility] [place] [facility] [address] [id number] [place] [address] Sep, [facility] [place] [facility] [address] [id number] [place] [address] August, [facility] [place] [facility] [address] [id number] [place] [address] August, [facility] [place] [facility] [address] [id number] [place] [address] August, [facility] [place] [facility] [address] [address] [id number] [place] [address] August, [facility] [place] [facility] [address] [id number] [place] [address] 7645 August, [facility] [place] [facility] [address] [id number] [place] [address] 5347 August, [facility] [place] [facility] [address] [id number] [place] [address] 3799 August, [facility] [place] [facility] [address] [id number] [place] [address] 6218 August, [facility] [place] [facility] [address] [id number] [place] [address]- 2763 August, [facility] [place] [facility] [address] [id number] [place] [address]- 9310 August, [facility] [place] [facility] [address] [id number] [place] [address]- 0013 August, [facility] [place] [facility] [address] [id number] [place] [address]- 3777 August, [facility] [place] [facility] [address] [id number] [place] [address]- 6409 Jul, [facility] [place] [facility] [address] [id number] [place] [address] 4795 Jul, [facility] [place] [facility] [address] [id number] [place] [address]- 5507 Jul, [facility] [place] [facility] [address] [id number] [place] [address]- 2982 Jul, [facility] [place] [facility] [address] [id number] [place] [address] 1912 Jul, [facility] [place] [facility] [address] [id number] [place] [address]- 6642 Jul, [facility] [place] [facility] [address] [id number] [place] [address]- 2599 Jul, [facility] [place] [facility] [address] [id number] [place] [address]- 1090 Jul, [facility] [place] [facility] [address] [id number] [place] [address]- 0975 Jul, [facility] [place] [facility] [address] [id number] [place] [address]- 2494 Jul, [facility] [address] [id number] [place] [address]- 6254 Jul, [facility] [place] [facility] [address] [id number] [place] [address]- 6196 Jun, [facility] [place] [facility] [address] [id number] [place] [address]- 2615 Jun, [facility] [place] [facility] [address] [id number] [place] [address]- 6179 Jun, [facility] [place] [facility] [address] [id number] [place] [address]- 0385 Jun, [facility] [place] [facility] [address] [id number] [place] [address]- 4349 Jun, [facility] [place] [facility] [address] [id number] [place] [address]- 1544 Jun, [facility] [place] [facility] [address] [id number] [place] [address]- 3389 Jun, [facility] [place] [facility] [address] [id number] [place] [address]- 0192 Jun, [facility] [place] [facility] [address] [id number] [place] [address]- 2882 Jun, [facility] [place] [facility] [address] [id number] [place] [address]- 8583 May, [facility] [place] [facility] [address] [id number] [place] [address]- 4454 May, [facility] [place] [facility] [address] [id number] [place] [address]- 4682 May, [facility] [place] [facility] [address] [id number] [place] [address]- 7036 Apr, [facility] [place] [facility] [address] [id number] [place] [address]- 2173 Apr, [facility] [place] [facility] [address] [id number] [place] [address]- 2499 Apr, [facility] [place] [facility] [address] [id number] [place] [address]- 8268 Apr, [facility] [place] [facility] [address] [id number] [place] [address]- 3061 Apr, [facility] [place] [facility] [address] [id number] [place] [address]- 9003 Apr, [facility] [place] [facility] [address] [id number] [place] [address]- 2620 Apr, [facility] [place] [facility] [address] [id number] [place] [address]- 9884 Apr, [facility] [place] [facility] [address] [id number] [place] [address]- 8538 Mar, [facility] [place] [facility] [address] [id number] [place] [address]- 5166 Mar, [facility] [place] [facility] [address] [id number] [place] [address]- 6243 Feb, [facility] [place] [facility] [address] [id number] [place] [address]- 5936 Feb, [facility] [place] [facility] [address] [id number] [place] [address]- 8720 Jan, [facility] [place] [facility] [address] [id number], [place] [address]- 55[address] 31 Jan, 2013 [facility] [place] [facility] [address] [id number] [place] [address]- 2317 Jan, [facility] [place] [facility] [address] [id number] [place] [address]- 6097 Jan, [facility] [place] [facility] [address] [id number] [place] [address]- 4620 24 Jan, 2013 [facility] [place] [facility] [address] [id number] [place] [address]- 2354 24 Jan, 2012 [facility] [place] [facility] [address] [id number] [place] [address]- 6718 Jan, 2012 [facility] [place] [facility] [address] [id number] [place] [address]- 9356 21 Jan, 2012 [facility] [place] [facility] [address] [id number] [place] [address]- 7744 17 Jan, 2012 [facility] [place] [facility] [address] [id number] [place] [address]- 5688 17 Jan, 2012 [facility] [place] [facility] [address] [id number] [place] [address]- 2613 14 Jan, 2012 [facility] [place] [facility] [address] [id number] [place] [address]- 3368 14 Jan, 2012 [facility] [place] [facility] [address] [id number] [place] [address]- 5045 10 Jan, 2012 [facility] [place] [facility] [address] [id number] [place] [address]- 0996 10 Jan, 2012 [facility] [place] [facility] [address] [id number] [place] [address]- 6935 10 Jan, 2012 [facility] [place] [facility] [address] [id number] [place] [address]- 3527 10 Jan, 2012 [facility] [place] [facility] [address] [id number] [place] [address]- 1759 09 Jan, 2012 [facility] [place] [facility] [address] [id number][place] [address]- 3445 09 Jan, 2012 [facility] [place] [facility] [address] [id number][place] [address]- 4919 08 Jan, 2012 [facility] [place] [facility] [address] [id number], [place] [address]- 0699 07 Jan, 2012 [facility] [place] [facility] [address] [id number], [place] [address]- 1197 07 Jan, 2012 [facility] [place] [facility] [address] [id number] [place] [address]- 8386 Jan, [facility] [place] [facility] [address] [id number] [place] [address]- 6375 Jan, [facility] [place] [facility] [address] [id number] [place] [address]- 7120 17 Dec, 2012 [facility] [place] [facility] [address] [id number] [place] [address]- 1787 16 Dec, 2012 [facility] [place] [facility] [address] [id number] [place] [address]- 0126 Nov, [facility] [place] [facility] [address] [id number] [place] [address]- 4079 Oct, [facility] [place] [facility] [address] [id number] [place] [address]- 0750 Oct, [facility] [place] [facility] [address] [id number] [place] [address]- 3005 Oct, [facility] [place] [facility] [address] [id number] [place] [address]- 5859 Oct, [facility] [place] [facility] [address] [id number] [place] [address]- 4551 Oct, [facility] [place] [facility] [address] [id number] [place] [address]- 7569 Oct, [facility] [place] [facility] [address] [id number] [place] [address]- 5611 Sep, [facility] [place] [facility] [address] [id number] [place] [address]- 5558 Sep, [facility] [place] [facility] [address] [id number] [place] [address]- 1759 Sep, [facility] [place] [facility] [address] [id number] [place] [address]- 5770 Jul, [facility] [place] [facility] [address] [id number] [place] [address]- 7996 Jul, [facility] [address] [id number] [place] [address]- 5452 Jul, [facility] [address] [id number] [place] [address]- 2226 Jun, [facility] [address] [id number] [place] [address]- 1856 Jun, [facility] [place] [facility] [address] [id number] [place] [address]- 9426 Jun, [facility] [address] [id number] [place] [address]- 7053 Jun, [facility] [place] [facility] [address] [id number] [place] [address]- 4236 Jun, [facility] [address] [id number] [place] [address]- 0762 Jun, [facility] [place] [facility] [address] [id number][place] [address]- 9509 May, [facility] [address] [id number] [place] [address]- 0902 May, [facility] [place] [facility] [address] [id number] [place] [address]- 2502 Apr, [facility] [place] [facility] [address] [id number], [place] [address]- 2247 Apr, [facility] [place] [facility] [address] [id number], [place] [address]- 9239 Apr, [facility] [place] [facility] [address] [id number] [place] [address]- 5595 Apr, [facility] [place] [facility] [address] [id number] [place] [address]- 2194 Apr, [facility] [place] [facility] [address] [id number] [place] [address]- 6343 Mar, [facility] [place] [facility] [address] [id number] [place] [address]- 2920 31 Mar, 2012 [facility] [address] [id number] [place] [address]- 2246 27 Mar, 2012 [facility] [place] [facility] [address] [id number] [place] [address]- 8086 27 Mar, 2012 [facility] [address] [id number] [place] [address]- 4516 14 Mar, 2012 [facility] [place] [facility] [address] [id number] [place] [address]- 5776 14 Mar, 2012 [facility] [address] [id number] [place] [address]- 0353 10 Mar, 2012 [facility] [address] [id number] [place] [address]- 5947 Mar, [facility] [place] [facility] [address] [id number] [place] [address]- 4207 Mar, [facility] [address] [id number] [place] [address]- 7821 05 Mar, 2012 [facility] [place] [facility] [address] [id number] [place] [address]- 7970 30 Feb, 2012 [facility] [address] [id number] [place] [address]- 9331 30 Feb, 2012 [facility] [place] [facility] [address] [id number] [place] [address]- 2736 Feb, [facility] [place] [facility] [address] [id number] [place] [address]- 1860 Feb, [facility] [place] [facility] [address] [id number] [place] [address]- 8372 Feb, [facility] [place] [facility] [address] [id number] [place] [address]- 1856 Feb, [facility] [place] [facility] [address] [facility] [id number] [place] [address]- 0352 Feb, [facility] [place] [facility] [address] [id number] [place] [address]- 9428 Feb, [facility] [place] [facility] [address] [id number] [place] [address]- 3006 Feb, [facility] [place] [facility] [address] [id number] [place] [address]- 6446 Feb, [facility] [place] [facility] [address] [id number] [place] [address]- 7727 Jan, [facility] [place] [facility] [address] [id number] [place] [address]- 0839 Jan, [facility] [place] [facility] [address] [id number] [place] [address]- 5111 Jan, [facility] [place] [facility] [address] [facility] [id number] [place] [address]- 6444 Jan, [facility] [place] [facility] [address] [id number], [place] [address]- 2776 28 Sep2011 [facility] [place] [facility] [address] [id number] [place] [address]- 7993 25 Sep2011 [facility] [place] [facility] [address] [facility] [id number], [place] [address]- 0116 18 Sep2011 [facility] [place] [facility] [address] [facility] [id number], [place] [address]- 3394 18 Sep2011 [facility] [place] [facility] [address] [id number], [place] [address]- 5932 17 Sep2011 [facility] [place] [facility] [address] [id number], [place] [address]- 0338 14 Sep2011 [facility] [place] [facility] [address] [facility] [id number], [place] [address]- 8033 13 Sep2011 [facility] [place] [facility] [address] [facility] [id number], [place] [address]- 6209 13 Sep2011 [facility] [place] [facility] [address] [id number], [place] [address]- 5925 Dec, [facility] [address] [id number] [place] [address]- 5611 Nov, [facility] [place] [facility] [address] [id number] [place] [address]- 2514 Nov, [facility] [place] [facility] [address] [id number] [place] [address]- 2918 Nov, [facility] [place] [facility] [address] [id number] [place] [address]- 6689 Nov, [facility] [place] [facility] [address] [id number] [place] [address]- 2528 Sep, [facility] [place] [facility] [address] [id number] [place] [address]- 2606 Sep, [facility] [place] [facility] [address] [id number] [place] [address]- 2555 Sep, [facility] [place] [facility] [address] [id number] [place] [address]- 3578 August, [facility] [place] [facility] [address] [id number] [place] [address]- 3089 August, [facility] [place] [facility] [address] [id number] [place] [address]- 6993 August, [facility] [place] [facility] [address] [id number] [place] [address]- 4378 August, [facility] [place] [facility] [address] [id number] [place] [address]- 6673 August, [facility] [place] [facility] [address] [id number] [place] [address]- 9079 August, [facility] [place] [facility] [address] [id number] [place] [address]- 3914 August, [facility] [place] [facility] [address] [id number] [place] [address]- 4456 August, [facility] [place] [facility] [address] [id number] [place] [address]- 8064 August, [facility] [place] [facility] [address] [id number] [place] [address]- 6861 Jul, [facility] [place] [facility] [address] [id number] [place] [address]- 7120 Jun, [facility] [place] [facility] [address] [id number] [place] [address]- 1591 16 Jun, 2011 [facility] [place] [facility] [address] [id number] [place] [address]- 7542 08 Jun, 2011 [facility] [place] [facility] [address] [id number] [place] [address]- 2680 06 Jun, 2011 [facility] [place] [facility] [address] [id number] [place] [address]- 0061 05 Jun, 2011 [facility] [place] [facility] [address] [id number] [place] [address]- 8046 Jun, [facility] [place] [facility] [address] [id number] [place] [address]- 6714 Jun, [facility] [place] [facility] [address] [id number] [place] [address]- 5436 Jun, [facility] [place] [facility] [address] [facility] [id number] [place] [address]- 6065 May, [facility] [place] [facility] [address] [id number] [place] [address]- 3690 May, [facility] [place] [facility] [address] [id number] [place] [address]- 7390 May, [facility] [place] [facility] [address] [id number] [place] [address]- 3569 May, [facility] [place] [facility] [address] [id number] [place] [address]- 6850 17 May, 2011 [facility] [place] [facility] [address] [id number] [place] [address]- 3458 16 May, 2011 [facility] [address] [id number] [place] [address]- 8306 14 May, 2011 [facility] [place] [facility] [address] [id number] [place] [address]- 0932 Apr, [facility] [place] [facility] [address] [id number] [place] [address]- 3497 16 Apr, 2011 [facility] [place] [facility] [address] [id number] [place] [address]- 4306 13 Apr, 2011 [facility] [place] [facility] [address] [id number] [place] [address]- 9965 Apr, [facility] [place] [facility] [address] [id number] [place] [address]- 1382 Apr, [facility] [address] [id number] [place] [address]- 4959 Apr, [facility] [place] [facility] [address] [id number] [place] [address]- 3968 Apr, [facility] [address] [id number] [place] [address]- 9492 Apr, [facility] [place] [facility] [address] [id number] [place] [address]- 7237 29 Mar, 2011 [facility] [address] [id number] [place] [address]- 7324 Mar, [facility] [place] [facility] [address] [id number] [place] [address]- 2531 28 Feb, 2011 [facility] [place] [facility] [address] [id number] [place] [address]- 1214 17 Feb, 2011 [facility] [place] [facility] [address] [id number] [place] [address]- 8665 17 Feb, 2011 [facility] [place] [facility] [address] [id number] [place] [address]- 8656 16 Feb, 2011 [facility] [place] [facility] [address] [id number] [place] [address]- 1308 16 Feb, 2011 [facility] [address] [id number] [place] [address]- 7234 24 Jan, 2011 [facility] [place] [facility] [address] [id number] [place] [address]- 8616 12 Nov, 2010 [facility] [place] [facility] [address] [id number] [place] [address]- 5751 14 Sep, 2010 [facility] [place] [facility] [address] [id number] [place] [address]- 6893 August, [facility] [place] [facility] [address] [id number] [place] [address]- 0624 Jun, [facility] [place] [facility] [address] [id number] [place] [address]- 8803 14 May, 2010 [facility] [place] [facility] [address] [id number] [place] [address]- 2016 18 Apr, 2010 [facility] [place] [facility] [address] [id number] [place] [address]- 2541 22 Mar, 2010 [facility] [place] [facility] [address] [id number] [place] [address]- 1771 14 Mar, 2010 [facility] [place] [facility] [address] [id number] [place] [address]- 0184 14 Mar, 2010 [facility] [place] [facility] [address] [id number] [place] [address]- 3112 12 Feb, 2010 [facility] [place] [facility] [address] [id number] [place] [address]- 7789 12 Feb, 2010 [facility] [place] [facility] [address] [id number] [place] 0960 12 Jan, 2010 [facility] [place] [facility] [address] [id number] [place] [address]223 11 Jan, 2010 [facility] [place] [facility] [address] [id number] [place] [address]- 4540 Jan, [facility] [address] [facility] [id number] [address] Oct, [facility] [address] [facility] [id number][place] [address]- 9286 Oct, [facility] [address] [facility] [id number] [address] Apr, [facility] [address] [facility] [id number] [address] Mar, [facility] [address] [facility] [id number] [address] Mar, [facility] [address] [id number] [address] Jan, [facility] [address] [id number], [place] [address] Dec, IMMUNIZATIONS No Known Immunizations SOCIAL HISTORY Never Assessed REASON FOR VISIT DM f/uTrent Angel MA PLAN OF CARE Activity Details Follow Up 3 Months Reason:dm VITAL SIGNS Height 63 in 2016-10-21 Weight 128.4 lbs 2016-10-21 Temperature 97.6 degrees Fahrenheit 2016-10-21 Heart Rate 72 bpm 2016-10-21 Respiratory Rate 18 2016-10-21 BMI 22.74 kg/m2 2016-10-21 Blood pressure systolic 106 mmHg 2016-10-21 Blood pressure diastolic 76 mmHg 2016-10-21 MEDICATIONS Medication Instructions Dosage Frequency Start Date End Date Duration Status Atenolol 100 MG orally once 1 tablet by Oral route 1 time per day Jun Active Gabapentin 300 MG Orally 3 times a day 1 capsule by Oral route 3 times per day 8h Active Pen [place] 32G X 4 MM subcutaneously 2 times a day as directed 12h Feb Active Norvasc 5 mg Orally 2 times a day 1 tablet by Oral route 2 times per day 12h Active Vytorin 10-40 MG Orally Once a day 1 tablet 24h Active Levemir Flexpen 100 UNIT/ML Subcutaneous 2 times a day Inject 25 units in AM and PM 12h Sep, Active Percocet 5-325 MG Orally every 6 hrs prn 1 tablet as needed Sep, Active Metformin HCl 1000MG Orally Twice a day 1 tablet with meals 12h Active amitriptyline 150 mg by oral route Once a day 1 tablet 24h Jun, Active Flonase 50 MCG/ACT Nasally Once a day 1 spray in each nostril 24h Feb, Active Hydrochlorothiazide 50 mg 1 tablet Once a day Orally Active ProAir HFA 108 (90 Base) MCG/ACT Inhalation every 4 hrs 2 puffs as needed 4h May, Active Diclofenac Sodium 50MG DR Orally Three times a day 1 tablet 8h Active Albuterol Sulfate 90 mcg/actuation 2 puffs by Inhalation route every 4-6 hours as neededPRNcough or wheezing August, Active Celexa 20 mg Orally Once a day 1 tablet 24h Active RESULTS Name Result Date Reference Range A1C (IN HOUSE) 2016-10-21 A1C IN HOUSE 5.6 4.3 - 5.6 % Previous A1c 5.8 Lot [id number] Exp date 06/2018 CBC 2016-10-21 WBC 6.2 3.4-10.8 RBC 4.42 3.77-5.28 Hemoglobin 13.3 11.1-15.9 Hematocrit 40.4 34.0-46.6 MCV 91 79-97 MCH 30.1 26.6-33.0 MCHC 32.9 31.5-35.7 RDW 13.3 12.3-15.4 Platelets 244 150-379 Neutrophils 75 Lymphs 13 Monocytes 7 Eos 5 Basos 0 Neutrophils (Absolute) 4.6 1.4-7.0 Lymphs (Absolute) 0.8 0.7-3.1 Monocytes(Absolute) 0.4 0.1-0.9 Eos (Absolute) 0.3 0.0-0.4 Baso (Absolute) 0.0 0.0-0.2 Immature Granulocytes 0 Immature Grans (Abs) 0.0 0.0-0.1 LIPID PANEL 2016-10-21 Cholesterol, Total 99 100-199 Triglycerides 94 0-149 HDL Cholesterol 37 >39 VLDL Cholesterol Dev 19 5-40 LDL Cholesterol Calc 43 0-99 Comment: CMP 2016-10-21 Glucose, Serum 81 65-99 BUN 13 8-27 Creatinine, Serum 0.74 0.57-1.00 eGFR If NonAfricn Am 84 >59 eGFR If Africn Am 96 >59 BUN/Creatinine Ratio 18 12-28 Sodium, Serum 138 134-144 Potassium, Serum 4.3 3.5-5.2 Chloride, Serum 95 96-106 Carbon Dioxide, Total 25 18-29 Calcium, Serum 9.4 8.7-10.3 Protein, Total, Serum 6.0 6.0-8.5 Albumin, Serum 4.0 3.6-4.8 Globulin, Total 2.0 1.5-4.5 A/G Ratio 2.0 1.2-2.2 Bilirubin, Total 0.3 0.0-1.2 Alkaline Phosphatase, S 65 39-117 AST (SGOT) 19 0-40 ALT (SGPT) 20 0-32 PROCEDURES Procedure Date Ordered Result Body Site GLYCATED HEMOGLOBIN TEST October 21, 2016 [facility] October [facility], 2016 [facility] VISIT ESTABLISHED PATIENT October 21, 2016 VENIPUNCT, ROUTINE* October 21, 2016 INSTRUCTIONS MEDICATIONS ADMINISTERED No Known Medications [...]
--- OUTSIDE RECORDS SUMMARY | 2018-02-13 04:05 | XMS REPORT ---
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 Name Role Phone VALENZUELAZULEIKANICHELLE Unavailable PROBLEMS Type Condition ICD9-CM Code SAH25-RV Code Onset Dates Condition Status SNOMED Code Problem Renal failure N19 Active 07492895 Problem Joint pain of left hip on movement M25.552 Active 114329960 Problem GERD (gastroesophageal reflux disease) K21.9 Active 711535636 Problem Environmental allergies Z91.09 Active 971637942 Problem Insomnia G47.00 Active 561178216 Problem Asthma J45.909 Active 330838151 Problem Hypercholesterolemia E78.0 Active 83243051 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
--- OUTSIDE RECORDS SUMMARY | 2018-02-13 04:06 | XMS REPORT ---
Author Author NICHELLE Cortes Organization [facility] Address [address] [place] [address] Care Team Providers Care Statistician Name Role Phone paulaNICHELLE VALENZUELA Unavailable PROBLEMS Type Condition ICD9-CM Code TDL05-CZ Code Onset Dates Condition Status SNOMED Code Problem Asthma J45.909 Active 057105391 Problem Reactive depression F32.9 Active 02855490 Problem Secondary hypertension I15.9 Active 27608673 Problem Open bite of left hand, initial encounter S61.452A Active 027573468 Problem Bitten by cat, initial encounter W55.01XA Active 283918893 Problem Moderate persistent asthma with exacerbation J45.41 Active 790757083 Problem Bronchitis J40 Active 25259136 Problem Simple chronic bronchitis J41.0 Active 59823159 Problem Recurrent major depressive disorder, in full remission F33.42 Active 366078022 Problem Renal failure N19 Active 56434904 Problem Joint pain of left hip on movement M25.552 Active 046887900 Problem Hypercholesterolemia E78.00 Active 22496000 Problem Environmental allergies Z91.09 Active 402629831 Problem PVD (peripheral vascular disease) I73.9 Active 544814358 Problem Diabetes mellitus E11.9 Active 80520564 Problem Proteinuria R80.9 Active 15216225 Problem Insomnia G47.00 Active 499283124 Problem Neuropathy G62.9 Active 576568245 Problem GERD (gastroesophageal reflux disease) K21.9 Active 504810895 ALLERGIES No Information ENCOUNTERS Encounter Location Date Diagnosis [facility] [address] [id number] [address] August, Open bite of left hand, initial encounter S61.452A ; Encounter for immunization Z23 and Bitten by cat, initial encounter W55.01XA [facility] [address] [id number], [place] [address] Jul, Environmental allergies Z91.09 [facility] [id number] [place] [address] 04748- 2116 Jun, [facility] [address] [address]- 1604 14 Jun, 2017 Simple chronic bronchitis J41.0 ; PVD (peripheral vascular disease) I73.9 and Recurrent major depressive disorder, in full remission F33.42 [facility] [facility] [address] [id number] Jun, 2017 Dental examination Z01.20 [facility] [address] [address] 04 Jun, 2017 Moderate persistent asthma with exacerbation J45.41 [place] [address] [address]- [address] May, Neuropathy G62.9 and Diabetes mellitus E11.9 [place] [address] [address]17- 6512 Apr, [facility] [id number] [place] [address] 42353 -2230 Apr, Cough R05 [place] [id number] [place] [address] 61156- 8462 Feb, [place] [id number] [place] [address] 90423- 2153 Feb, [place] [address] 94947- 6739 Feb, Diabetes mellitus E11.9 ; Neuropathy G62.9 ; Joint pain of left hip on movement M25.552 and Encounter for immunization Z23 [place] [id number] [place] [address] 61800- 0060 Feb, [place] [id number] [place] [address] 32609- 8454 Feb, Diabetes mellitus E11.9 [place] [address] [address] Feb, [facility] [id number] [place] [address] 48028- 4865 Jan, [facility] [id number] [place] [address] 10935- 0466 Jan, Secondary hypertension I15.9 [facility] [id number] [place] [address] 98801- 7100 Dec, Diabetes mellitus E11.9 [facility] [facility] [address] [id number] Nov, Encounter for dental examination Z01.20 [facility] [id number] [place] [address] 36621 -8556 Oct, Allergic contact dermatitis due to plants, except food L23.7 [facility] [id number] [place] [address] 00170- 0515 Oct, [facility] [id number] [place] [address] 67161- 6154 Oct, Diabetes mellitus E11.9 ; PVD (peripheral vascular disease) I73.9 ; Neuropathy G62.9 ; GERD (gastroesophageal reflux disease) K21.9 ; Insomnia G47.00 ; Environmental allergies Z91.09 ; Secondary hypertension I15.9 ; Reactive depression F32.9 ; Hypercholesterolemia E78.00 and Joint pain of left hip on movement M25.552 [facility] [id number] [place] [address] 92540- 5261 Sep, Diabetes mellitus E11.9 [facility] [id number] [place] [address] 00554- 1502 Sep, Diabetes mellitus E11.9 [facility] [id number] [place] [address] 55335- 5018 Sep, Diabetes mellitus E11.9 [facility] [id number] [place] [address] 34664- 5802 Sep, Neuropathy G62.9 [facility] [id number] [place] [address] 01707- 0400 August, [facility] [address] 23659- 5603 Jul, [facility] [address] 70132- 5014 Jun, [facility] [address] 25976- 6590 Jun, Diabetes mellitus E11.9 ; PVD (peripheral vascular disease) I73.9 ; Neuropathy G62.9 ; Joint pain of left hip on movement M25.552 ; Renal failure N19 ; Asthma J45.909 ; Reactive depression F32.9 ; Pure hypercholesterolemia, unspecified E78.00 and Insomnia G47.00 [place] [address] 72394- 7305 Jun, Joint pain of left hip on movement M25.552 and Diabetes mellitus E11.9 [place] [address] 88943- 4812 Jun, [facility] [id number] [place] [address] 91044 -1776 May, Cough R05 and Bronchitis J40 [facility] [id number] [place] [address] 07838- 6135 May, [facility] [address] 36955- 9700 May, [facility] [address] 43258- 0677 May, Asthma J45.909 and Bronchitis J40 [facility] [address] 57164- 0316 May, [facility] [address] 68468- 1460 07 May, 2016 Bronchitis J40 [facility] [address] 66927- 4516 May, [facility] [address] 95278- 7159 Apr, Diabetes mellitus E11.9 ; PVD (peripheral vascular disease) I73.9 ; GERD (gastroesophageal reflux disease) K21.9 ; Asthma J45.909 ; Insomnia G47.00 ; Environmental allergies Z91.09 ; Secondary hypertension I15.9 ; Joint pain of left hip on movement M25.552 ; Hypercholesterolemia E78.0 and Reactive depression F32.9 [place] [address] 65188- 4622 Mar, Diabetes mellitus E11.9 ; PVD (peripheral vascular disease) I73.9 and Hypercholesterolemia E78.0 [place] [address] 39575- 8447 Mar, Diabetes mellitus E11.9 and Hypercholesterolemia E78.0 [place] [address] 29707- 0639 Mar, [place] [address] 13766- 8666 Feb, [place] [address] 53106- 9634 Feb, [facility] [address] 31202- 6677 Feb, [facility] [address] 44793- 6609 Jan, Encounter for immunization Z23 [facility] [address] 96068- 8697 10 Jan, 2016 [facility] [address] 71496- 9593 07 Dec, 2015 [facility] [address] 68323- 2021 Dec, Diabetes mellitus E11.9 ; PVD (peripheral vascular disease) I73.9 ; GERD (gastroesophageal reflux disease) K21.9 ; Insomnia G47.00 ; Joint pain of left hip on movement M25.552 ; Asthma J45.909 ; Environmental allergies Z91.09 ; Hypercholesterolemia E78.0 ; Essential hypertension I10 and Neuropathy G62.9 [place] [address] 46464- 7592 Nov, [place] [address] 59582- 1576 Nov, [place] [address] 73770- 3361 Oct, PVD (peripheral vascular disease) I73.9 and Diabetes mellitus E11.9 [place] [address] 58519- 7022 Sep, Diabetes mellitus E11.9 ; PVD (peripheral vascular disease) I73.9 ; Neuropathy G62.9 ; Joint pain of left hip on movement M25.552 ; GERD ( gastroesophageal reflux disease) K21.9 ; Asthma J45.909 ; Insomnia G47.00 ; Secondary hypertension I15.9 and Hypercholesteremia E78.0 [place] [id number] [place] [address] 94870- 1699 August, [place] [id number] [place] [address] 45516- 3733 August, Neuropathy G62.9 [place] [id number] [place] [address] 22055- 7680 August, Neuropathy G62.9 [place] [id number] [place] [address] 60761- 5926 Jun, Diabetes mellitus E11.9 ; Joint pain of left hip on movement M25.552 ; PVD (peripheral vascular disease) I73.9 ; Neuropathy G62.9 ; GERD (gastroesophageal reflux disease) K21.9 ; Asthma J45.909 ; Insomnia G47.00 ; Environmental allergies Z91.09 ; HTN (hypertension) I10 and Hypercholesteremia E78.0 [facility] [id number] [place] [address] 39565- 0632 Jun, [facility] [id number] [place] [address] 69710- 8792 Jun, [facility] [address] 51030- 0424 Jun, [facility] [id number] [place] [address] 03993- 9745 Apr, [facility] [id number] [place] [address] 08898- 7598 Apr, [facility] [address] 40551- 5246 Apr, Sinusitis J32.9 [facility] [id number] [place] [address] 84618- 7804 Apr, Neuropathy G62.9 [place] [address] 91767- 8100 Mar, [facility] [id number] [place] [address] 12512- 2708 Mar, [place] [id number] [place] [address] 56414- 8342 Mar, Diabetes mellitus E11.9 ; PVD (peripheral vascular disease) I73.9 ; Neuropathy G62.9 ; GERD (gastroesophageal reflux disease) K21.9 ; Renal failure N19 ; Asthma J45.909 ; Insomnia G47.00 ; Environmental allergies Z91.09 ; Sinusitis J32.9 ; Cough R05 ; Edema R60.9 ; HTN (hypertension) I10 and Hypercholesterolemia E78.0 [facility] [id number] [place] [address] 95778 -8000 Mar, Dysuria R30.0 ; Vomiting, unspecified R11.10 ; Benign essential hypertension I10 and Dizziness R42 [facility] [address], [place] [address]- 6949 Mar, [facility] [id number] [place] [address] 57976- 3867 Mar, [facility] [id number] [place] [address] 31937- 5343 Feb, [facility] [id number] [place] [address] 68881- 5681 Feb, [facility] [address] [place] [address] 30134- 8602 Feb, [facility] [id number] [place] [address] 55739- 9287 Feb, [facility] [id number] [place] [address] 83073- 8034 Feb, Joint pain of left hip on movement M25.552 ; Lumbago M54.5 and UTI (urinary tract infection) N39.0 [facility] [address] [address]- 1014 Feb, [facility] [address], [place] [address]- 1301 Feb, [facility] [address], [place] [address]- 7714 Jan, [facility] [address], [place] [address]- 6010 Jan, [facility] [address], [place] [address]- 0478 Jan, [facility] [address] [place] [address] 29115- 0574 Jan, [facility] [address], [place] [address]- 4059 Jan, 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 [facility] [id number] [place] [address] 68184- 2941 30 Dec, 2014 Hypertension 401.9 and Diabetes 250.00 [place] [address] 23145- 3827 Dec, Diabetes 250.00 ; Influenza vaccine administered V04.81 ; Unspecified peripheral vascular disease 443.9 ; Issue of repeat prescriptions V68.1 ; Unspecified hereditary and idiopathic peripheral neuropathy 356.9 ; Insomnia, unspecified 780.52 ; Hypercholesteremia 272.0 ; Pain in joint, site unspecified 719.40 ; Dizziness 780.4 and PCV-13 (PREVNAR) DX V03.82 [place] [address] 59627- 4552 Dec, [place] [address] 60603- 8770 Dec, [place] [address] 41025- 5282 Dec, [place] [address] 29618- 9142 Dec, [place] [address] 61050- 2209 Dec, [place] [id number] [place] [address] 38688- 0655 Dec, [place] [id number] [place] [address] 93589- 4673 Nov, [place] [id number] [place] [address] 13214- 8398 Nov, Environmental allergies V15.09 ; Sacroiliitis, not elsewhere classified 720.2 and Cough 786.2 [facility] [id number] [place] [address] 16740- 2726 Oct, [place] [address] 28161- 2109 Oct, [facility] [address] [address]- 0259 Oct, [facility] [address] [place] [address] 84655- 3288 Sep, [facility] [address] [place] [address] 91968- 0143 Sep, [facility] [id number] [place] [address] 58606- 2222 Sep, Dysuria 788.1 and Diabetes with other specified manifestations, type II or unspecified type, not stated as uncontrolled 250.80 [facility] [id number] [place] [address] 19485- 1407 Sep, [facility] [id number] [place] [address] 07237- 1817 Sep, Diabetes with other specified manifestations, type II or unspecified type, not stated as uncontrolled 250.80 [facility] [address], [place] [address]- 1248 Sep, DM w/o complication type II 250.00 ; Unspecified peripheral vascular disease 443.9 ; Pain in joint, pelvic region and thigh 719.45 ; Asthma , unspecified, unspecified status 493.90 ; Hypercholesteremia 272.0 ; Fatigue 780.79 ; UTI (lower urinary tract infection) 599.0 and Essential hypertension 401.9 [facility] [address], [place] [address]- 1583 Sep, [facility] [address], [place] [address]- 2828 Sep, [facility] [id number] [place] [address] 52642- 8762 Sep, [facility] [address], [place] [address]- 4678 August, [facility] [id number] [place] [address] 37824- 8823 August, [facility] [address] [id number] 4544 August, Diabetes with other specified manifestations, type II or unspecified type, not stated as uncontrolled 250.80 [facility] [address] [id number], [place] [address]- 7580 Jul, Peripheral vascular disease 443.9 [facility] [address] [id number], [place] [address]- 5610 Jul, [facility] [address] [id number], [place] [address]- 5262 Jul, [facility] [address], [place] [address]- 9628 Jun, [facility] [address], [place] [address]- 1540 Jun, [facility] [address], [place] [address]- 5319 Jun, [facility] [id number], [place] [address]- 8092 Jun, [facility] [address], [place] [address]- 5032 Jun, [facility] [address] [id number], [place] [address]- 9332 Jun, [facility] [address] [id number], [place] [address]- 9494 Jun, [facility] [address] [id number] 2645 Jun, [facility] [address] [id number], [place] [address]- 9854 Jun, [facility] [address] [id number], [place] [address]- 4049 May, [facility] [address] [id number] [place] [address]- 2788 May, 2014 [facility] [place] [facility] [address] [id number] [place] [address]- 6052 May, 2014 [facility] [place] [facility] [address] [id number] [place] [address]- 2546 May, 2014 [facility] [place] [facility] [address] [id number] [place] [address]- 2144 May, 2014 [facility] [place] [facility] [address] [id number] [place] [address]- 6266 May, 2014 [facility] [place] [facility] [address] [id number] [place] [address]- 1883 May, 2014 [facility] [place] [facility] [address] [id number] [place] [address]- 0346 May, 2014 [facility] [place] [facility] [address] [id number] [place] [address]- 5824 May, 2014 [facility] [place] [facility] [address] [id number] [place] [address]- 8333 May, [facility] [place] [facility] [address] [id number] [place] [address]- 3441 May, [facility] [place] [facility] [address] [id number] [place] [address]- 2887 May, [facility] [place] [facility] [address] [id number], [place] [address]- 0300 May, [facility] [place] [facility] [address] [id number] [place] [address]- 8681 Apr, [facility] [place] [facility] [address] [id number] [place] [address]- 2734 Apr, [facility] [place] [facility] [address] [id number] [place] [address]- 1373 Apr, [facility] [place] [facility] [address] [id number], [place] [address]- 7264 Apr, [facility] [place] [facility] [address] [id number] [place] [address]- 5018 Apr, [facility] [place] [facility] [address] [id number] [place] [address]- 0991 Apr, [facility] [place] [facility] [address] [id number] [place] [address]- 2801 Apr, [facility] [place] [facility] [address] [id number] [place] [address]- 9964 Apr, [facility] [place] [facility] [address] [id number] [place] [address]- 7589 Mar, [facility] [place] [facility] [address] [id number] [place] [address]- 3385 Mar, [facility] [place] [facility] [address] [id number] [place] [address]- 9097 Mar, [facility] [place] [facility] [address] [id number] [place] [address]- 7147 Mar, [facility] [place] [facility] [address] [id number] [place] [address]- 7245 Mar, [facility] [place] [facility] [address] [id number] [place] [address]- 2964 Mar, [facility] [place] [facility] [address] [id number] [place] [address]- 4124 Mar, [facility] [place] [facility] [address] [id number] [place] [address]- 8075 Mar, [facility] [place] [facility] [address] [id number] [place] 1306 Mar, [facility] [place] [facility] [address] [id number] [place] [address]- 8569 Mar, [facility] [place] [facility] [address] [id number] [place] 9809 Mar, [facility] [place] [facility] [address] [id number] [place] [address]- 2732 Mar, [facility] [place] [facility] [address] [id number] [place] [address]- 7501 Mar, [facility] [place] [facility] [address] [id number] [place] 8148 Mar, [facility] [place] [facility] [address] [id number] [place] [address]- 8082 Feb, [facility] [place] [facility] [address] [id number] [place] [address]- 7685 Feb, [facility] [place] [facility] [address] [id number] [place] [address] Feb, [facility] [place] [facility] [address] [id number] [place] [address] Feb, [facility] [place] [facility] [address] [id number] [place] [address] Feb, [facility] [place] [facility] [address] [id number] [place] [address] Feb, [facility] [place] [facility] [address] [id number] [place] [address] Feb, [facility] [place] [facility] [address] [id number] [place] [address] Feb, [facility] [place] [facility] [address] [id number] [place] [address] Feb, [facility] [place] [facility] [address] [id number] [place] [address] Feb, [facility] [place] [facility] [address] [id number] [place] [address] Feb, [facility] [place] [facility] [address] [id number] [place] [address] Feb, [facility] [place] [facility] [address] [id number] [place] [address] Feb, [facility] [place] [facility] [address] [id number] [place] [address] Feb, [facility] [place] [facility] [address] [id number] [place] [address] Feb, [facility] [place] [facility] [address] [id number] [place] [address] Feb, [facility] [place] [facility] [address] [id number] [place] [address] Jan, [facility] [place] [facility] [address] [id number] [place] [address] Jan, [facility] [place] [facility] [address] [id number] [place] [address] Jan, [facility] [place] [facility] [address] [id number] [place] [address] Jan, [facility] [place] [facility] [address] [id number] [place] [address] Jan, [facility] [place] [facility] [address] [id number] [place] [address] Jan, [facility] [place] [facility] [address] [id number], [place] [address] Jan, [facility] [place] [facility] [address] [id number], [place] [address] 2015 Jan, [facility] [place] [facility] [address] [id number], [place] [address] Dec, [facility] [place] [facility] [address] [id number] [place] [address] Dec, [facility] [place] [facility] [address] [id number] [place] [address] Nov, [facility] [place] [facility] [address] [id number], [place] [address] Nov, [facility] [place] [facility] [address] [id number], [place] [address] Nov, [facility] [place] [facility] [address] [id number] [place] [address] Nov, [facility] [place] [facility] [address] [id number] [place] [address] Nov, [facility] [place] [facility] [address] [id number] [place] [address] Nov, [facility] [place] [facility] [address] [id number] [place] [address] Oct, [facility] [place] [facility] [address] [id number] [place] [address] Oct, [facility] [place] [facility] [address] [id number] [place] [address] Oct, [facility] [place] [facility] [address] [id number] [place] [address] Oct, [facility] [place] [facility] [address] [id number] [place] [address] Sep, [facility] [place] [facility] [address] [id number] [place] [address] Sep, [facility] [place] [facility] [address] [id number] [place] [address] 89[address] Sep, [facility] [place] [facility] [address] [id number] [place] [address] Sep, [facility] [place] [facility] [address] [id number] [place] [address] 2470 Sep, [facility] [place] [facility] [address] [id number] [place] [address] 65[address] Sep, [facility] [place] [facility] [address] [id number] [place] [address] 0164 August, [facility] [place] [facility] [address] [id number] [place] [address] 1315 August, [facility] [place] [facility] [address] [id number] [place] [address] 1390 August, [facility] [place] [facility] [address] [id number] [place] [address] 18[address] August, [facility] [place] [facility] [address] [id number] [place] [address] 9[address] August, [facility] [place] [facility] [address] [id number] [place] [address]- 0826 August, [facility] [place] [facility] [address] [id number] [place] [address] 39[address] August, [facility] [place] [facility] [address] [id number] [place] [address]- 117[address] August, [facility] [place] [facility] [address] [id number] [place] [address] 58[address] August, [facility] [place] [facility] [address] [id number] [place] [address] 7317 August, [facility] [place] [facility] [address] [id number] [place] [address] 47[address] August, [facility] [place] [facility] [address] [id number] [place] [address]- 5068 August, [facility] [place] [facility] [address] [id number] [place] [address]- 114[address] Jul, [facility] [place] [facility] [address] [id number] [place] [address]- 7597 Jul, [facility] [place] [facility] [address] [id number] [place] [address]- 2152 Jul, [facility] [place] [facility] [address] [id number] [place] [address]- 6047 Jul, [facility] [place] [facility] [address] [id number] [place] [address] Jul, [facility] [place] [facility] [address] [id number] [place] [address]- 9414 Jul, [facility] [place] [facility] [address] [id number] [place] [address]- 1135 Jul, [facility] [place] [facility] [address] [id number] [place] [address]- 7811 Jul, [facility] [place] [facility] [address] [id number] [place] [address]- 1342 Jul, [facility] [place] [facility] [address] [id number] [place] [address]- 6579 Jul, [facility] [place] [facility] [address] [id number] [place] [address] Jul, [facility] [place] [facility] [address] [id number] [place] [address]- 9380 Jun, [facility] [place] [facility] [address] [id number] [place] [address]- 6446 Jun, [facility] [place] [facility] [address] [id number] [place] [address]- 5966 Jun, [facility] [place] [facility] [address] [id number] [place] [address]- 1723 Jun, [facility] [place] [facility] [address] [id number] [place] [address]- 8373 Jun, [facility] [place] [facility] [address] [id number] [place] [address]- 6887 Jun, [facility] [place] [facility] [address] [id number] [place] [address]- 3824 Jun, [facility] [place] [facility] [address] [id number] [place] [address]- 2277 Jun, [facility] [place] [facility] [address] [id number] [place] [address]- 0331 Jun, [facility] [place] [facility] [address] [id number] [place] [address]- 7174 28 May, 2013 [facility] [place] [facility] [address] [id number] [place] [address]- 0237 May, [facility] [address] [id number] [place] [address]- 3449 May, [facility] [place] [facility] [address] [id number] [place] [address]- 6127 Apr, [facility] [address] [id number] [place] [address]- 8697 Apr, [facility] [place] [facility] [address] [id number] [place] [address]- 9922 Apr, [facility] [address] [id number] [place] [address]- 6423 Apr, [facility] [address] [id number] [place] [address]- 9813 Apr, [facility] [address] [id number] [place] [address]- 3338 Apr, [facility] [address] [id number] [place] [address]- 9713 Apr, [facility] [address] [id number] [place] [address]- 8487 Apr, [facility] [address] [id number] [place] [address]- 2110 Mar, [facility] [place] [facility] [address] [id number] [place] [address]- 5877 Mar, [facility] [place] [facility] [address] [id number] [place] [address]- 3862 Feb, [facility] [place] [facility] [address] [id number] [place] [address]- 8392 Feb, [facility] [place] [facility] [address] [id number] [place] [address]- 3625 Jan, [facility] [place] [facility] [address] [id number] [place] [address]- 0675 Jan, [facility] [place] [facility] [address] [id number] [place] [address]- 4293 28 Jan, 2012 [facility] [place] [facility] [address] [id number] [place] [address]- 4930 28 Jan, 2013 [facility] [place] [facility] [address] [id number] [place] [address]- 9695 Jan, 2012 [facility] [place] [facility] [address] [id number] [place] [address]- 4341 24 Jan, 2012 [facility] [place] [facility] [address] [id number] [place] [address]- 6505 Jan, 2012 [facility] [place] [facility] [address] [id number] [place] [address]- 7241 Jan, 2012 [facility] [place] [facility] [address] [id number] [place] [address]- 6672 17 Jan, 2013 [facility] [place] [facility] [address] [id number], [place] [address]- 3072 17 Jan, 2013 [facility] [place] [facility] [address] [id number] [place] [address]- 7187 14 Jan, 2013 [facility] [place] [facility] [address] [id number], [place] [address]- 2846 14 Jan, 2013 [facility] [place] [facility] [address] [id number], [place] [address]- 2700 10 Jan, 2012 [facility] [place] [facility] [address] [id number], [place] [address]- 7632 10 Jan, 2012 [facility] [place] [facility] [address] [id number], [place] [address]- 4730 10 Jan, 2012 [facility] [place] [facility] [address] [id number], [place] [address]- 2028 10 Jan, 2012 [facility] [place] [facility] [address] [id number], [place] [address]- 7603 09 Jan, 2012 [facility] [place] [facility] [address] [id number], [place] [address]- 5767 Jan, [facility] [place] [facility] [address] [id number] [place] [address]- 9349 Jan, [facility] [place] [facility] [address] [id number] [place] [address]- 6816 Jan, [facility] [place] [facility] [address] [id number] [place] [address]- 7132 Jan, [facility] [place] [facility] [address] [id number] [place] [address]- 9781 Jan, [facility] [place] [facility] [address] [id number] [place] [address]- 8131 Jan, [facility] [place] [facility] [address] [id number] [place] [address]- 0550 Dec, [facility] [place] [facility] [address] [id number] [place] [address]- 8398 Dec, [facility] [place] [facility] [address] [id number] [place] [address]- 6075 Nov, [facility] [place] [facility] [address] [id number] [place] [address]- 5075 Oct, [facility] [place] [facility] [address] [id number] [place] [address]- 9380 Oct, [facility] [place] [facility] [address] [id number] [place] [address]- 0709 Oct, [facility] [place] [facility] [address] [id number] [place] [address]- 8595 Oct, [facility] [place] [facility] [address] [id number] [place] [address]- 3409 Oct, [facility] [place] [facility] [address] [id number] [place] [address]- 8772 Oct, [facility] [place] [facility] [address] [id number] [place] [address]- 9053 Sep, [facility] [place] [facility] [address] [id number] [place] [address]- 5024 13 Sep, 2012 [facility] [address] [id number] [place] [address]- 5966 Sep, [facility] [place] [facility] [address] [id number] [place] [address]- 1372 Jul, [facility] [address] [id number] [place] [address]- 3527 Jul, [facility] [place] [facility] [address] [id number] [place] [address]- 4141 Jul, [facility] [address] [id number] [place] [address]- 4381 Jun, [facility] [place] [facility] [address] [id number] [place] [address]- 0711 Jun, [facility] [address] [id number] [place] [address]- 9255 Jun, [facility] [address] [id number] [place] [address]- 7534 Jun, [facility] [address] [id number] [place] [address]- 2830 Jun, [facility] [address] [id number] [place] [address] Jun, [facility] [place] [facility] [address] [id number] [place] [address]- 2875 May, [facility] [place] [facility] [address] [id number] [place] [address]- 6032 May, [facility] [place] [facility] [address] [id number] [place] [address]- 5637 Apr, [facility] [place] [facility] [address] [id number] [place] [address]- 4591 Apr, [facility] [place] [facility] [address] [id number] [place] [address]- 2810 Apr, [facility] [address] [id number] [place] [address]- 5834 Apr, [facility] [place] [facility] [address] [id number] [place] [address]- 7566 Apr, [facility] [place] [facility] [address] [id number] [place] [address]- 1406 Mar, [facility] [place] [facility] [address] [id number] [place] [address]- 3437 Mar, [facility] [place] [facility] [address] [id number] [place] [address]- 2692 Mar, [facility] [place] [facility] [address] [id number] [place] [address]- 4139 Mar, [facility] [place] [facility] [address] [id number] [place] [address]- 4015 14 Mar, 2012 [facility] [place] [facility] [address] [id number] [place] [address]- 0984 14 Mar, 2012 [facility] [place] [facility] [address] [id number] [place] [address]- 9607 Mar, [facility] [place] [facility] [address] [id number] [place] [address]- 5570 Mar, [facility] [place] [facility] [address] [id number] [place] [address]- 5496 05 Mar, 2012 [facility] [place] [facility] [address] [id number], [place] [address]- 0434 05 Mar, 2012 [facility] [place] [facility] [address] [id number] [place] [address]- 5966 30 Feb, 2012 [facility] [place] [facility] [address] [id number] [place] [address]- 5266 30 Feb, 2012 [facility] [place] [facility] [address] [id number] [place] [address]- 2546 13 Feb, 2012 [facility] [place] [facility] [address] [id number] [place] [address]- 8348 Feb, [facility] [place] [facility] [address] [id number] [place] [address]- 4702 Feb, [facility] [place] [facility] [address] [id number] [place] [address]- 7856 Feb, [facility] [place] [facility] [address] [id number] [place] [address]- 1119 Feb, [facility] [place] [facility] [address] [id number] [place] [address]- 1033 Feb, [facility] [place] [facility] [address] [id number] [place] [address]- 4180 Feb, [facility] [place] [facility] [address] [id number] [place] [address]- 0551 Feb, [facility] [place] [facility] [address] [id number] [place] [address]- 4695 Jan, [facility] [place] [facility] [address] [id number] [place] [address]- 6239 Jan, [facility] [place] [facility] [address] [id number] [place] [address]- 6831 Jan, [facility] [place] [facility] [address] [id number] [place] [address]- 4586 Jan, [facility] [place] [facility] [address] [id number] [place] [address]- 3132 28 Sep2011 [facility] [place] [facility] [address] [id number] [place] [address]- 5958 25 Sep2011 [facility] [place] [facility] [address] [id number] [place] [address]- 1782 18 Sep2011 [facility] [place] [facility] [address] [id number] [place] [address]- 8094 18 Sep2011 [facility] [place] [facility] [address] [id number] [place] [address]- 7227 17 Dec, 2011 [facility] [place] [facility] [address] [id number] [place] [address]- 2698 14 Dec, 2011 [facility] [place] [facility] [address] [id number] [place] [address]- 1997 13 Dec, 2011 [facility] [place] [facility] [address] [id number] [place] [address]- 7788 13 Dec, 2011 [facility] [place] [facility] [address] [id number] [place] [address]- 1789 06 Dec, 2011 [facility] [address] [id number] [place] [address]- 9615 31 Nov, 2011 [facility] [place] [facility] [address] [id number] [place] [address]- 3234 Nov, [facility] [address] [id number] [place] [address]- 2800 Nov, [facility] [address] [id number] [place] [address]- 1301 Nov, [facility] [place] [facility] [address] [id number] [place] [address]- 0452 Sep, [facility] [place] [facility] [address] [id number] [place] [address]- 8448 Sep, [facility] [place] [facility] [address] [id number] [place] [address]- 2241 Sep, [facility] [place] [facility] [address] [id number] [place] [address]- 1697 August, [facility] [place] [facility] [address] [id number] [place] [address]- 2373 August, [facility] [place] [facility] [address] [id number] [place] [address]- 1442 August, [facility] [place] [facility] [address] [id number] [place] [address]- 6591 August, [facility] [place] [facility] [address] [id number] [place] [address]- 1151 August, [facility] [place] [facility] [address] [id number] [place] [address]- 5514 August, [facility] [place] [facility] [address] [id number] [place] [address]- 2116 August, [facility] [place] [facility] [address] [id number] [place] [address]- 6586 August, [facility] [place] [facility] [address] [id number] [place] [address]- 2265 August, [facility] [place] [facility] [address] [id number] [place] [address]- 0166 Jul, [facility] [place] [facility] [address] [id number] [place] [address]- 8573 Jun, [facility] [place] [facility] [address] [id number] [place] [address]- 7377 Jun, [facility] [place] [facility] [address] [id number] [place] [address]- 8933 Jun, [facility] [place] [facility] [address] [id number] [place] [address]- 3385 Jun, [facility] [place] [facility] [address] [id number] [place] [address]- 0501 Jun, [facility] [place] [facility] [address] [id number] [place] [address]- 8319 Jun, [facility] [place] [facility] [address] [id number] [place] [address]- 0572 Jun, [facility] [place] [facility] [address] [id number] [place] [address]- 8502 Jun, [facility] [place] [facility] [address] [id number] [place] [address]- 2658 May, [facility] [place] [facility] [address] [id number] [place] [address]- 9390 May, [facility] [place] [facility] [address] [id number] [place] [address]- 7176 20 May, 2011 [facility] [address] [id number] [place] [address]- 4736 19 May, 2011 [facility] [place] [facility] [address] [id number] [place] [address] 2546 17 May, 2011 [facility] [address] [id number] [place] [address]- 2326 16 May, 2011 [facility] [address] [id number] [place] [address]- 5720 14 May, 2011 [facility] [address] [id number] [place] [address]- 9619 Apr, [facility] [address] [id number] [place] [address]- 0877 16 Apr, 2011 [facility] [address] [id number] [place] [address]- 2721 Apr, [facility] [address] [id number] [place] [address]- 4737 Apr, [facility] [address] [id number] [place] [address]- 0140 Apr, [facility] [address] [id number] [place] [address]- 6006 Apr, [facility] [address] [id number] [place] [address]- 4150 Apr, [facility] [address] [id number] [place] [address]- 6983 Apr, [facility] [place] [facility] [address] [id number] [place] [address]- 1566 Mar, [facility] [place] [facility] [address] [id number] [place] [address]- 5974 Mar, [facility] [address] [id number] [place] [address]- 8611 28 Feb, 2011 [facility] [place] [facility] [address] [id number] [place] [address]- 8606 17 Feb, 2011 [facility] [place] [facility] [address] [id number] [place] [address]00 17 Feb, 2011 [facility] [place] [facility] [address] [id number] [place] [address]- 7772 16 Feb, 2011 [facility] [place] [facility] [address] [id number] [place] [address]- 3828 16 Feb, 2011 [facility] [place] [facility] [address] [id number] [place] [address]- 5981 24 Jan, 2011 [facility] [place] [facility] [address] [id number] [place] [address]- 1748 12 Nov, 2010 [facility] [place] [facility] [address] [id number] [place] [address]- 2949 14 Sep, 2010 [facility] [place] [facility] [address] [id number] [place] [address]- 2881 August, [facility] [place] [facility] [address] [id number] [place] [address]- 2143 Jun, [facility] [place] [facility] [address] [id number] [place] [address]- 6173 14 May, 2010 [facility] [place] [facility] [address] [id number] [place] [address]- 5478 Apr, [facility] [place] [facility] [address] [id number] [place] [address]- 1142 22 Mar, 2010 [facility] [place] [facility] [address] [id number] [place] [address]- 0990 14 Mar, 2010 [facility] [place] [facility] [address] [id number] [place] [address]- 3943 14 Mar, 2010 [facility] [place] [facility] [address] [id number] [place] [address]- 6422 12 Feb, 2010 [facility] [place] [facility] [address] [id number], [place] [address] Feb, [facility] [address] [id number] [address] Jan, [facility] [id number] [address] Jan, [facility] [id number] [address] Jan, [facility] [id number] [address] Oct, [facility] [id number], [place] [address] Oct, [facility] [id number], [place] [address] Apr, [facility] [id number] [address] Mar, [facility] [id number] [address] Mar, [facility] [id number] [address] Jan, [facility] [address] [id number], [place] [address] Dec, IMMUNIZATIONS No Known Immunizations SOCIAL HISTORY Never Assessed REASON FOR VISIT PLAN OF CARE VITAL SIGNS MEDICATIONS Medication Instructions Dosage Frequency Start Date End Date Duration Status Levemir Flexpen 100 UNIT/ML Subcutaneous 2 times a day Inject 25 units in AM and PM 12h 30 Active Atenolol 100 mg orally Once a day 1 tablet 24h 13 Jun, 2014 30 days Active RESULTS No Results PROCEDURES [...]
--- OUTSIDE RECORDS SUMMARY | 2018-02-13 04:07 | XMS REPORT ---
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 Problem Diabetes mellitus E11.9 Active Problem Hypercholesterolemia E78.0 Active Problem Proteinuria R80.9 Active Problem Joint pain of left hip on movement M25.552 Active Problem PVD (peripheral vascular disease) I73.9 Active Problem Neuropathy G62.9 Active Assessment Encounter for immunization Z23 Active Problem Environmental allergies Z91.09 Active Problem Insomnia G47.00 Active Medications No Known Medications Procedures Procedure Coding System Code Date SINGLE IMMUNIZATION ADMIN CPT-4 63244 Feb 19, 2016 FLUZONE HIGH DOSE 65 AND UP 2015 CPT-4 06380 Feb 19, 2016 Results No Known Results Immunizations Vaccine Administration Date FLUZONE HIGH DOSE 65 AND UP 2015Feb 19, 2016 Summary Purpose eClinicalWorks Submission
--- OUTSIDE RECORDS SUMMARY | 2018-02-13 04:07 | XMS REPORT ---
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 [address]-29 300 mg July 01, 2014 1 capsule by Oral route 3 times per day Nasonex [facility] [address]-30 50 mcg/actuation Jun 03, 2014 1 sprays by Nasal route 2 times per day in each nostril Vistaril [facility] [address]-32 25 MG Orally every 8 hrs Jan 24, 2015 1 capsule as needed Metformin HCl [facility] [address]-73 1000 MG Orally Twice a day Dec 27, 2014 1 tablet with meals Percocet [facility] [address]-49 5-325 MG Orally every 6 hrs Jun 16, 2014 take 1 tablet by oral route every 6 hours as needed Levemir [facility] [address]-53 100 UNIT/ML Subcutaneous 2 times a day Jun 02, 2014 inject 25 unit in am and pm1 Injection by Subcutaneous route 2 times per day 30units AM, 34units [facility] [address]-14 5 MG Orally 2 times a day May 02, 2014 1 tablet by Oral route 2 times per day Hydrochlorothiazide [facility] [address]-70 50 mg Mar 21, 2014 1 tablet by Oral route 1 time per day Permethrin [facility] [address]-44 5 % Externally 2 times a day Jan 24, 2015 Feb 23, 2015 to affected areas Zanaflex [facility] [address]-80 4 MG Orally every 8 hrs September 19, 2014 1 tablet as needed Vytorin [facility] [address]-27 10-40 MG Orally Once a day [address] [facility] 0 150 mg July 01, 2014 take 1 tablet (150 mg) by oral route once daily at bedtime Procedures Procedure Coding System Code Date Office Visit, Est Pt., Level 3 CPT-4 07358 Jan 24, 2015 [facility] VISIT ESTABLISHED PATIENT CPT-4 G0467 Jan 24, 2015 Vital Signs Date/Time: Jan 24, 2015 Temperature 96.8 F Weight 134.3 lbs Height 63 in BMI 23.79 Index Blood Pressure Diastolic 82 mmHg Blood Pressure Systolic 130 mmHg Cardiac Monitoring Heart Rate 84 bpm Results No Known Results Summary Purpose eClinicalWorks Submission
--- OUTSIDE RECORDS SUMMARY | 2018-02-13 04:07 | XMS REPORT ---
Author Author NICHELLE VALENZUELA Organization [facility] Address [address] [place] [address] Care Team Providers Care Bottle Hop Name Role Phone ZULEIKA VALENZUELANETTE Unavailable PROBLEMS Type Condition ICD9-CM Code WDA35-GB Code Onset Dates Condition Status SNOMED Code Problem PVD (peripheral vascular disease) I73.9 Active 431365971 Problem Insomnia G47.00 Active 317613205 Problem Diabetes mellitus E11.9 Active 73429043 Problem Encounter for dental examination Z01.20 Active 410010149 Problem Bronchitis J40 Active 35570567 Problem Asthma J45.909 Active 174239266 Problem GERD (gastroesophageal reflux disease) K21.9 Active 806475597 Problem Reactive depression F32.9 Active 79408657 Problem Secondary hypertension I15.9 Active 44478312 Problem Renal failure N19 Active 05225798 Problem Joint pain of left hip on movement M25.552 Active 483914925 Problem Hypercholesterolemia E78.00 Active 19979155 Problem Proteinuria R80.9 Active 02501212 Problem Environmental allergies Z91.09 Active 690312533 Problem Neuropathy G62.9 Active 419615730 ALLERGIES Substance Reaction Event Type Date Status Stadol Unknown Drug Allergy May, Active Glucotrol Unknown Drug Allergy May, Active SOCIAL HISTORY No smoking Hx information available PLAN OF CARE Activity Details Follow Up 2 - 3 Days, prn Reason: VITAL SIGNS Height 63 in 2016-05-28 Weight 128.9 lbs 2016-05-28 Temperature 97.6 degrees Fahrenheit 2016-05-28 Heart Rate 68 bpm 2016-05-28 Respiratory Rate 20 2016-05-28 Oximetry 95 % 2016-05-28 BMI 22.83 kg/m2 2016-05-28 Blood pressure systolic 124 mmHg 2016-05-28 Blood pressure diastolic 72 mmHg 2016-05-28 MEDICATIONS Medication Instructions Dosage Frequency Start Date End Date Duration Status Vytorin 10-40 MG Orally Once a day 1 tablet 24h Active Atenolol 100 MG orally once 1 tablet by Oral route 1 time per day Jun Active Pen [place] 31G X 6 MM as directed 12h 25 Feb, 2015 Active Percocet 5-325 MG Orally every 6 hrs 1 tablet as needed 6h 18 Feb, 2016 Active Levemir 100 UNIT/ML Subcutaneous 2 times a day inject 25 unit in am and pm 12h May, Active ProAir HFA 108 (90 Base) MCG/ACT Inhalation every 4 hrs 2 puffs as needed 4h May, 30 days Active Albuterol Sulfate 90 mcg/actuation 2 puffs by Inhalation route every 4-6 hours as neededPRNcough or wheezing August, Active Flonase 50 MCG/ACT Nasally Once a day 1 spray in each nostril 24h Feb, Active Diclofenac Sodium 50MG DR Orally Three times a day 1 tablet 8h Active Celexa 20 mg Orally Once a day 1 tablet 24h Apr, 30 day(s) Active Norvasc 5 mg Orally 2 times a day 1 tablet by Oral route 2 times per day 12h Active amitriptyline 150 mg by oral route Once a day 1 tablet 24h Jun, Active Hydrochlorothiazide 50 mg Orally Once a day 1 tablet 24h Mar, Active Gabapentin 300 MG Orally 3 times a day 1 capsule by Oral route 3 times per day 8h 90 Active Promethazine-Codeine 6.25-10 MG/5ML Orally every 6 hrs 5 ml as needed 6h 07 May, 2016 Active Metformin HCl 1000MG Orally Twice a day 1 tablet with meals 12h Active Azithromycin 250 MG Orally Once a day 2 tablets on the first day, then 1 tablet daily for 4 days 24h May, May, 5 day(s) Active NyQuil Active RESULTS No Results PROCEDURES Procedure Date Ordered Related Diagnosis Body Site MEASURE BLOOD OXYGEN LEVEL May 28, 2016 [facility] VISIT ESTABLISHED PATIENT May 28, 2016 Office Visit, Est Pt., Level 3 May 28, 2016 IMMUNIZATIONS No Known Immunizations
--- OUTSIDE RECORDS SUMMARY | 2018-02-13 04:08 | XMS REPORT ---
Author Author NICHELLE VALENZUELA [facility] eClinicalWorks Address Unknown Phone Unavailable Care Team Providers Care Engineering Design Manager Name Role Phone NICHELLE VALENZUELA Unavailable Allergies [...] I73.9 Active Problem Neuropathy G62.9 Active Medications No Known Medications Results No Known Results Summary Purpose eClinicalWorks Submission
--- OUTSIDE RECORDS SUMMARY | 2018-02-13 04:08 | XMS REPORT ---
Author Author NICHELLE Cortes Organization [facility] Address [address] [place] [address] Care Team Providers Care Clearance Center Manager Name Role Phone paulaNICHELLE VALENZUELA Unavailable PROBLEMS Type Condition ICD9-CM Code ZYK73-EN Code Onset Dates Condition Status SNOMED Code Problem Asthma J45.909 Active 990844618 Problem Reactive depression F32.9 Active 72796895 Problem Secondary hypertension I15.9 Active 61391477 Problem Open bite of left hand, initial encounter S61.452A Active 526556074 Problem Bitten by cat, initial encounter W55.01XA Active 070808627 Problem Moderate persistent asthma with exacerbation J45.41 Active 306917131 Problem Bronchitis J40 Active 76854687 Problem Simple chronic bronchitis J41.0 Active 28339039 Problem Recurrent major depressive disorder, in full remission F33.42 Active 955482257 Problem Renal failure N19 Active 56243345 Problem Joint pain of left hip on movement M25.552 Active 751344753 Problem Hypercholesterolemia E78.00 Active 55341011 Problem Environmental allergies Z91.09 Active 751008568 Problem PVD (peripheral vascular disease) I73.9 Active 840396293 Problem Diabetes mellitus E11.9 Active 31526073 Problem Proteinuria R80.9 Active 17647176 Problem Insomnia G47.00 Active 888726016 Problem Neuropathy G62.9 Active 629197756 Problem GERD (gastroesophageal reflux disease) K21.9 Active 083222831 ALLERGIES No Information ENCOUNTERS Encounter Location Date Diagnosis [facility] [address] [facility] [id number] [address] August, Open bite of left hand, initial encounter S61.452A ; Encounter for immunization Z23 and Bitten by cat, initial encounter W55.01XA [facility] [address] [facility] [id number], [place] [address] Jul, Environmental allergies Z91.09 [facility] [id number] [place] [address] 05037- 6521 Jun, [facility] [address] 96335- 9103 14 Jun, 2017 Simple chronic bronchitis J41.0 ; PVD (peripheral vascular disease) I73.9 and Recurrent major depressive disorder, in full remission F33.42 [facility] [address] [id number] Jun, 2017 Dental examination Z01.20 [facility] [address] [address] 04 Jun, 2017 Moderate persistent asthma with exacerbation J45.41 [place] [address] 13032- 5747 May, Neuropathy G62.9 and Diabetes mellitus E11.9 [place] [address] 15174- 6581 Apr, [facility] [id number] [place] [address] 88105 -6387 Apr, Cough R05 [place] [id number] [place] [address] 77227- 5028 Feb, [place] [id number] [place] [address] 66725- 3065 Feb, [place] [address] 15301- 3367 Feb, Diabetes mellitus E11.9 ; Neuropathy G62.9 ; Joint pain of left hip on movement M25.552 and Encounter for immunization Z23 [place] [id number] [place] [address] 92050- 3263 Feb, [place] [id number] [place] [address] 28498- 1422 Feb, Diabetes mellitus E11.9 [place] [address], [place] [address] 7[address] Feb, [facility] [id number] [place] [address] 70039- 8503 Jan, [facility] [id number] [place] [address] 90721- 3058 Jan, Secondary hypertension I15.9 [facility] [id number] [place] [address] 93337- 7859 Dec, Diabetes mellitus E11.9 [facility] [address] [id number] Nov, Encounter for dental examination Z01.20 [facility] [id number] [place] [address] 34512 -0497 Oct, Allergic contact dermatitis due to plants, except food L23.7 [facility] [id number] [place] [address] 32950- 0568 Oct, [facility] [id number] [place] [address] 25437- 6979 Oct, Diabetes mellitus E11.9 ; PVD (peripheral vascular disease) I73.9 ; Neuropathy G62.9 ; GERD (gastroesophageal reflux disease) K21.9 ; Insomnia G47.00 ; Environmental allergies Z91.09 ; Secondary hypertension I15.9 ; Reactive depression F32.9 ; Hypercholesterolemia E78.00 and Joint pain of left hip on movement M25.552 [facility] [address] [place] [address] 74308- 3260 Sep, Diabetes mellitus E11.9 [facility] [id number] [place] [address] 35188- 7504 Sep, Diabetes mellitus E11.9 [facility] [id number] [place] [address] 28860- 4857 Sep, Diabetes mellitus E11.9 [facility] [id number] [place] [address] 05511- 0083 Sep, Neuropathy G62.9 [facility] [id number] [place] [address] 63951- 7408 August, [facility] [address] 47350- 7217 Jul, [facility] [address] 53265- 3150 Jun, [facility] [address] 17920- 5429 Jun, Diabetes mellitus E11.9 ; PVD (peripheral vascular disease) I73.9 ; Neuropathy G62.9 ; Joint pain of left hip on movement M25.552 ; Renal failure N19 ; Asthma J45.909 ; Reactive depression F32.9 ; Pure hypercholesterolemia, unspecified E78.00 and Insomnia G47.00 [place] [address] 90587- 8459 Jun, Joint pain of left hip on movement M25.552 and Diabetes mellitus E11.9 [place] [address] 82229- 3388 Jun, [facility] [id number] [place] [address] 29296 -5168 May, Cough R05 and Bronchitis J40 [facility] [id number] [place] [address] 55584- 5748 May, [facility] [address] 68449- 6856 May, [facility] [address] 17750- 9906 May, Asthma J45.909 and Bronchitis J40 [facility] [address] 29416- 8698 May, [facility] [address] 27541- 2017 07 May, 2016 Bronchitis J40 [facility] [address] 31306- 7788 May, [facility] [address] 26667- 2790 Apr, Diabetes mellitus E11.9 ; PVD (peripheral vascular disease) I73.9 ; GERD (gastroesophageal reflux disease) K21.9 ; Asthma J45.909 ; Insomnia G47.00 ; Environmental allergies Z91.09 ; Secondary hypertension I15.9 ; Joint pain of left hip on movement M25.552 ; Hypercholesterolemia E78.0 and Reactive depression F32.9 [place] [address] 71565- 6090 Mar, Diabetes mellitus E11.9 ; PVD (peripheral vascular disease) I73.9 and Hypercholesterolemia E78.0 [place] [address] 05822- 3424 Mar, Diabetes mellitus E11.9 and Hypercholesterolemia E78.0 [place] [address] 42797- 6466 Mar, [place] [address] 56516- 2205 Feb, [place] [address] 44446- 6932 Feb, [facility] [address] 46124- 0067 Feb, [facility] [address] 68144- 8805 Jan, Encounter for immunization Z23 [facility] [address] 35166- 7622 10 Jan, 2016 [facility] [address] 61651- 1190 07 Dec, 2015 [facility] [address] 90802- 6438 Dec, Diabetes mellitus E11.9 ; PVD (peripheral vascular disease) I73.9 ; GERD (gastroesophageal reflux disease) K21.9 ; Insomnia G47.00 ; Joint pain of left hip on movement M25.552 ; Asthma J45.909 ; Environmental allergies Z91.09 ; Hypercholesterolemia E78.0 ; Essential hypertension I10 and Neuropathy G62.9 [place] [address] 06885- 7810 Nov, [place] [address] 52586- 9322 Nov, [place] [address] 64316- 4361 Oct, PVD (peripheral vascular disease) I73.9 and Diabetes mellitus E11.9 [place] [address] 48137- 4366 Sep, Diabetes mellitus E11.9 ; PVD (peripheral vascular disease) I73.9 ; Neuropathy G62.9 ; Joint pain of left hip on movement M25.552 ; GERD ( gastroesophageal reflux disease) K21.9 ; Asthma J45.909 ; Insomnia G47.00 ; Secondary hypertension I15.9 and Hypercholesteremia E78.0 [place] [id number] [place] [address] 18187- 3108 August, [place] [id number] [place] [address] 98385- 1613 August, Neuropathy G62.9 [place] [id number] [place] [address] 75886- 1372 August, Neuropathy G62.9 [place] [id number] [place] [address] 88876- 0023 Jun, Diabetes mellitus E11.9 ; Joint pain of left hip on movement M25.552 ; PVD (peripheral vascular disease) I73.9 ; Neuropathy G62.9 ; GERD (gastroesophageal reflux disease) K21.9 ; Asthma J45.909 ; Insomnia G47.00 ; Environmental allergies Z91.09 ; HTN (hypertension) I10 and Hypercholesteremia E78.0 [facility] [id number] [place] [address] 73294- 3345 Jun, [facility] [id number] [place] [address] 52839- 3638 Jun, [facility] [address] 84910- 7152 Jun, [facility] [id number] [place] [address] 07300- 3686 Apr, [facility] [id number] [place] [address] 41100- 4532 Apr, [facility] [address] 34915- 0813 Apr, Sinusitis J32.9 [facility] [id number] [place] [address] 19250- 3881 Apr, Neuropathy G62.9 [place] [address] 42135- 4402 Mar, [facility] [id number] [place] [address] 51341- 0325 Mar, [place] [id number] [place] [address] 15780- 5673 Mar, Diabetes mellitus E11.9 ; PVD (peripheral vascular disease) I73.9 ; Neuropathy G62.9 ; GERD (gastroesophageal reflux disease) K21.9 ; Renal failure N19 ; Asthma J45.909 ; Insomnia G47.00 ; Environmental allergies Z91.09 ; Sinusitis J32.9 ; Cough R05 ; Edema R60.9 ; HTN (hypertension) I10 and Hypercholesterolemia E78.0 [facility] [id number] [place] [address] 54035 -5214 Mar, Dysuria R30.0 ; Vomiting, unspecified R11.10 ; Benign essential hypertension I10 and Dizziness R42 [facility] [address], [place] [address]- 8939 Mar, [facility] [id number] [place] [address] 80090- 6166 Mar, [facility] [id number] [place] [address] 38476- 6861 Feb, [facility] [id number] [place] [address] 18590- 9775 Feb, [facility] [address] [place] [address] 90600- 6980 Feb, [facility] [id number] [place] [address] 74766- 1613 Feb, [facility] [id number] [place] [address] 88585- 2215 Feb, Joint pain of left hip on movement M25.552 ; Lumbago M54.5 and UTI (urinary tract infection) N39.0 [facility] [address], [place] [address]- 7705 Feb, [facility] [address], [place] [address]- 9120 Feb, [facility] [address], [place] [address]- 4114 Jan, [facility] [address], [place] [address]- 4203 Jan, [facility] [address], [place] [address]- 3557 Jan, [facility] [address] [place] [address] 38576- 0904 Jan, [facility] [address], [place] [address]- 9879 Jan, 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 [facility] [id number] [place] [address] 27256- 4244 30 Dec, 2014 Hypertension 401.9 and Diabetes 250.00 [place] [address] 81732- 6578 Dec, Diabetes 250.00 ; Influenza vaccine administered V04.81 ; Unspecified peripheral vascular disease 443.9 ; Issue of repeat prescriptions V68.1 ; Unspecified hereditary and idiopathic peripheral neuropathy 356.9 ; Insomnia, unspecified 780.52 ; Hypercholesteremia 272.0 ; Pain in joint, site unspecified 719.40 ; Dizziness 780.4 and PCV-13 (PREVNAR) DX V03.82 [place] [address] 64023- 7336 Dec, [place] [address] 26788- 3376 Dec, [place] [address] 07144- 0613 Dec, [place] [address] 35688- 6845 Dec, [place] [address] 20495- 5020 Dec, [place] [address] [id number] [place] [address] 55722- 5474 Dec, [place] [id number] [place] [address] 02924- 5477 Nov, [place] [id number] [place] [address] 08527- 8317 Nov, Environmental allergies V15.09 ; Sacroiliitis, not elsewhere classified 720.2 and Cough 786.2 [facility] [id number] [place] [address] 59131- 7579 Oct, [place] [address] 35334- 7686 Oct, [facility] [address], [place] [address]- 1749 Oct, [facility] [address] [place] [address] 80356- 1223 Sep, [facility] [address] [place] [address] 52823- 9723 Sep, [facility] [id number] [place] [address] 19206- 0581 Sep, Dysuria 788.1 and Diabetes with other specified manifestations, type II or unspecified type, not stated as uncontrolled 250.80 [facility] [id number] [place] [address] 11510- 8369 Sep, [facility] [id number] [place] [address] 66023- 1451 Sep, Diabetes with other specified manifestations, type II or unspecified type, not stated as uncontrolled 250.80 [facility] [address], [place] [address]- 2653 Sep, DM w/o complication type II 250.00 ; Unspecified peripheral vascular disease 443.9 ; Pain in joint, pelvic region and thigh 719.45 ; Asthma , unspecified, unspecified status 493.90 ; Hypercholesteremia 272.0 ; Fatigue 780.79 ; UTI (lower urinary tract infection) 599.0 and Essential hypertension 401.9 [facility] [address], [place] [address]- 7632 Sep, [facility] [address], [place] [address]- 2714 Sep, [facility] [id number] [place] [address] 47186- 8052 Sep, [facility] [address], [place] [address]- 7836 August, [facility] [id number] [place] [address] 16809- 5682 August, [facility] [address] [facility] [id number] 1781 August, Diabetes with other specified manifestations, type II or unspecified type, not stated as uncontrolled 250.80 [facility] [address] [facility] [id number], [place] [address]- 5834 Jul, Peripheral vascular disease 443.9 [facility] [address] [facility] [id number], [place] [address]- 2361 Jul, [facility] [address] [facility] [id number], [place] [address]- 4404 Jul, [facility] [address], [place] [address]- 3396 Jun, [facility] [address], [place] [address]- 4576 Jun, [facility] [address], [place] [address]- 5621 Jun, [facility] [address] [id number] [address]- 1479 Jun, [facility] [address], [place] [address]- 5785 Jun, [facility] [address] [id number], [place] [address]- 2294 Jun, [facility] [address] [facility] [id number], [place] [address]- 2318 Jun, [facility] [address] [facility] [id number] 1014 Jun, [facility] [address] [facility] [id number], [place] [address]- 8585 Jun, [facility] [id number], [place] [address]- 3296 May, [facility] [address] [facility] [id number] [place] [address]- 4020 May, 2014 [facility] [place] [facility] [address] [id number] [place] [address]- 9953 May, 2014 [facility] [place] [facility] [address] [id number] [place] [address]- 2546 May, 2014 [facility] [place] [facility] [address] [id number] [place] [address]- 8051 May, 2014 [facility] [place] [facility] [address] [id number] [place] [address]- 3975 May, 2014 [facility] [place] [facility] [address] [id number] [place] [address]- 4672 May, 2014 [facility] [place] [facility] [address] [facility] [id number] [place] [address]- 8543 May, 2014 [facility] [place] [facility] [address] [facility] [id number] [place] [address]- 1931 May, 2014 [facility] [place] [facility] [address] [id number] [place] [address]- 4494 May, [facility] [place] [facility] [address] [facility] [id number] [place] [address]- 3723 May, [facility] [place] [facility] [address] [facility] [id number] [place] [address]- 9927 May, [facility] [place] [facility] [address] [facility] [id number], [place] [address]- 8186 May, [facility] [place] [facility] [address] [facility] [id number] [place] [address]- 7215 Apr, [facility] [place] [facility] [address] [id number] [place] [address]- 5287 Apr, [facility] [place] [facility] [address] [facility] [id number] [place] [address]- 3560 Apr, [facility] [place] [facility] [address] [facility] [id number], [place] [address]- 0365 Apr, [facility] [place] [facility] [address] [id number] [place] [address]- 9365 Apr, [facility] [place] [facility] [address] [id number] [place] [address]- 4808 Apr, [facility] [place] [facility] [address] [id number] [place] [address]- 1487 Apr, [facility] [place] [facility] [address] [id number] [place] [address]- 2854 Apr, [facility] [place] [facility] [address] [id number] [place] [address]- 7346 Mar, [facility] [place] [facility] [address] [id number] [place] [address]- 0984 Mar, [facility] [place] [facility] [address] [id number] [place] [address]- 0929 Mar, [facility] [place] [facility] [address] [id number] [place] [address]- 8330 Mar, [facility] [place] [facility] [address] [id number] [place] [address]- 1855 Mar, [facility] [place] [facility] [address] [id number] [place] [address]- 7208 Mar, [facility] [place] [facility] [address] [id number] [place] [address]- 3935 Mar, [facility] [place] [facility] [address] [id number] [place] [address]- 8400 Mar, [facility] [place] [facility] [address] [id number] [place] 6394 Mar, [facility] [place] [facility] [address] [id number] [place] [address]- 3232 Mar, [facility] [place] [facility] [address] [id number] [place] 9559 Mar, [facility] [place] [facility] [address] [id number] [place] [address]- 3003 Mar, [facility] [place] [facility] [address] [id number] [place] [address]- 9997 Mar, [facility] [place] [facility] [address] [id number] [place] 2754 Mar, [facility] [place] [facility] [address] [id number] [place] [address]- 4423 Feb, [facility] [place] [facility] [address] [id number] [place] [address]- 6460 Feb, [facility] [place] [facility] [address] [id number] [place] [address]- 2181 Feb, [facility] [place] [facility] [address] [id number] [place] [address]- 5212 Feb, [facility] [place] [facility] [address] [id number] [place] [address]- 3614 Feb, [facility] [place] [facility] [address] [id number] [place] [address]- 2016 Feb, [facility] [place] [facility] [address] [id number] [place] [address]- 3802 Feb, [facility] [place] [facility] [address] [id number] [place] [address]- 7217 Feb, [facility] [place] [facility] [address] [id number] [place] [address]- 4512 Feb, [facility] [place] [facility] [address] [id number] [place] [address]- 9136 Feb, [facility] [place] [facility] [address] [id number] [place] [address]- 1155 Feb, [facility] [place] [facility] [address] [id number] [place] [address]- 7659 Feb, [facility] [place] [facility] [address] [id number] [place] [address]- 4553 Feb, [facility] [place] [facility] [address] [id number] [place] [address]- 5257 Feb, [facility] [place] [facility] [address] [id number] [place] [address]- 5354 Feb, [facility] [place] [facility] [address] [id number] [place] [address]- 3411 Feb, [facility] [place] [facility] [address] [id number] [place] [address]- 1662 Jan, [facility] [place] [facility] [address] [id number] [place] [address]- 8042 Jan, [facility] [place] [facility] [address] [id number] [place] [address]- 1444 Jan, [facility] [place] [facility] [address] [id number] [place] [address]- 2817 Jan, [facility] [place] [facility] [address] [id number] [place] [address]- 7324 Jan, [facility] [place] [facility] [address] [id number] [place] [address] Jan, [facility] [place] [facility] [address] [id number], [place] [address] Jan, [facility] [place] [facility] [address] [id number], [place] [address] Jan, [facility] [place] [facility] [address] [id number], [place] [address] Dec, [facility] [place] [facility] [address] [id number] [place] [address] Dec, [facility] [place] [facility] [address] [id number] [place] [address] Nov, [facility] [place] [facility] [address] [id number], [place] [address] Nov, [facility] [place] [facility] [address] [id number], [place] [address] Nov, [facility] [place] [facility] [address] [id number] [place] [address] Nov, [facility] [place] [facility] [address] [id number] [place] [address] Nov, [facility] [place] [facility] [address] [id number] [place] [address] Nov, [facility] [place] [facility] [address] [id number] [place] [address] Oct, [facility] [place] [facility] [address] [id number] [place] [address] Oct, [facility] [place] [facility] [address] [id number] [place] [address] Oct, [facility] [place] [facility] [address] [id number] [place] [address] Oct, [facility] [place] [facility] [address] [id number] [place] [address] Sep, [facility] [place] [facility] [address] [id number] [place] [address] Sep, [facility] [place] [facility] [address] [id number] [place] [address] Sep, [facility] [place] [facility] [address] [id number] [place] [address] Sep, [facility] [place] [facility] [address] [id number] [place] [address] Sep, [facility] [place] [facility] [address] [id number] [place] [address] Sep, [facility] [place] [facility] [address] [id number] [place] [address] August, [facility] [place] [facility] [address] [id number] [place] [address] August, [facility] [place] [facility] [address] [id number] [place] [address] August, [facility] [place] [facility] [address] [id number] [place] [address] August, [facility] [place] [facility] [address] [id number] [place] [address] August, [facility] [place] [facility] [address] [id number] [place] [address] August, [facility] [place] [facility] [address] [id number] [place] [address] August, [facility] [place] [facility] [address] [id number] [place] [address] August, [facility] [place] [facility] [address] [id number] [place] [address] August, [facility] [place] [facility] [address] [id number] [place] [address] August, [facility] [place] [facility] [address] [id number] [place] [address] August, [facility] [place] [facility] [address] [id number] [place] [address] August, [facility] [place] [facility] [address] [id number] [place] [address] 6910 Jul, [facility] [place] [facility] [address] [id number] [place] [address] 8600 Jul, [facility] [place] [facility] [address] [id number] [place] [address] 6033 Jul, [facility] [place] [facility] [address] [id number] [place] [address]298 Jul, [facility] [place] [facility] [address] [id number] [place] [address] Jul, [facility] [place] [facility] [address] [id number] [place] [address] 3434 Jul, [facility] [place] [facility] [address] [id number] [place] [address] 1365 Jul, [facility] [place] [facility] [address] [id number] [place] [address]- 6725 Jul, [facility] [place] [facility] [address] [id number] [place] [address]- 7764 Jul, [facility] [place] [facility] [address] [id number] [place] [address]- 0308 Jul, [facility] [place] [facility] [address] [id number] [place] [address] 8415 Jul, [facility] [place] [facility] [address] [id number] [place] [address] 2054 Jun, [facility] [place] [facility] [address] [id number] [place] [address]- 8538 Jun, [facility] [place] [facility] [address] [id number] [place] [address]- 2629 Jun, [facility] [place] [facility] [address] [id number] [place] [address]- 2814 Jun, [facility] [place] [facility] [address] [id number] [place] [address]- 1764 Jun, [facility] [place] [facility] [address] [id number] [place] [address]- 3449 Jun, [facility] [place] [facility] [address] [id number] [place] [address]- 6427 Jun, [facility] [place] [facility] [address] [id number] [place] [address]- 7002 Jun, [facility] [place] [facility] [address] [id number] [place] [address]- 9068 Jun, [facility] [place] [facility] [address] [id number] [place] [address]- 4423 28 May, 2013 [facility] [place] [facility] [address] [id number] [place] [address]- 5618 May, [facility] [address] [id number] [place] [address]- 3285 May, [facility] [place] [facility] [address] [id number] [place] [address]- 2606 Apr, [facility] [address] [id number] [place] [address]- 7719 Apr, [facility] [place] [facility] [address] [id number] [place] [address]- 8829 Apr, [facility] [address] [id number] [place] [address]- 5400 Apr, [facility] [address] [facility] [id number] [place] [address]- 6460 Apr, [facility] [address] [facility] [id number] [place] [address]- 7198 Apr, [facility] [address] [facility] [id number] [place] [address]- 6783 Apr, [facility] [address] [facility] [id number] [place] [address]- 6913 Apr, [facility] [address] [facility] [id number] [place] [address] 3129 Mar, [facility] [place] [facility] [address] [id number] [place] [address] 9250 Mar, [facility] [place] [facility] [address] [facility] [id number] [place] [address]- 1828 Feb, [facility] [place] [facility] [address] [id number] [place] [address]- 0063 Feb, [facility] [place] [facility] [address] [facility] [id number] [place] [address]- 8514 Jan, [facility] [place] [facility] [address] [facility] [id number] [place] [address]- 0919 Jan, [facility] [place] [facility] [address] [id number] [place] [address]- 7265 28 Jan, 2012 [facility] [place] [facility] [address] [id number] [place] [address]- 2688 28 Jan, 2013 [facility] [place] [facility] [address] [id number] [place] [address]- 5780 Jan, 2012 [facility] [place] [facility] [address] [id number] [place] [address]- 2089 24 Jan, 2012 [facility] [place] [facility] [address] [id number] [place] [address]- 7075 Jan, 2012 [facility] [place] [facility] [address] [id number] [place] [address]- 7248 Jan, 2012 [facility] [place] [facility] [address] [id number] [place] [address]- 9168 17 Jan, 2013 [facility] [place] [facility] [address] [id number], [place] [address] 36[address] 17 Jan, 2013 [facility] [place] [facility] [address] [id number] [place] [address]- 8772 14 Jan, 2013 [facility] [place] [facility] [address] [id number], [place] [address] 5556 14 Jan, 2013 [facility] [place] [facility] [address] [id number], [place] [address]- 3381 10 Jan, 2012 [facility] [place] [facility] [address] [id number], [place] [address]- 1407 10 Jan, 2012 [facility] [place] [facility] [address] [id number], [place] [address]- 3540 10 Jan, 2012 [facility] [place] [facility] [address] [id number], [place] [address]- 6602 10 Jan, 2012 [facility] [place] [facility] [address] [id number], [place] [address]- 3175 09 Jan, 2012 [facility] [place] [facility] [address] [id number], [place] [address]- 0066 Jan, [facility] [place] [facility] [address] [id number] [place] [address]- 0400 Jan, [facility] [place] [facility] [address] [id number] [place] [address]- 5221 Jan, [facility] [place] [facility] [address] [id number] [place] [address]- 1642 Jan, [facility] [place] [facility] [address] [id number] [place] [address]- 9233 Jan, [facility] [place] [facility] [address] [id number] [place] [address]- 8787 Jan, [facility] [place] [facility] [address] [id number] [place] [address]- 2395 Dec, [facility] [place] [facility] [address] [id number] [place] [address]- 4792 Dec, [facility] [place] [facility] [address] [id number] [place] [address]- 3557 Nov, [facility] [place] [facility] [address] [id number] [place] [address]- 1058 Oct, [facility] [place] [facility] [address] [id number] [place] [address]- 4733 Oct, [facility] [place] [facility] [address] [id number] [place] [address]- 4691 Oct, [facility] [place] [facility] [address] [id number] [place] [address]- 4083 Oct, [facility] [place] [facility] [address] [id number] [place] [address]- 4912 Oct, [facility] [place] [facility] [address] [id number] [place] [address]- 5270 Oct, [facility] [place] [facility] [address] [id number] [place] [address]- 8346 Sep, [facility] [place] [facility] [address] [id number] [place] [address]- 1682 13 Sep, 2012 [facility] [address] [id number] [place] [address]- 6386 Sep, [facility] [place] [facility] [address] [id number] [place] [address]- 3601 Jul, [facility] [address] [id number] [place] [address]- 6428 Jul, [facility] [place] [facility] [address] [id number] [place] [address]- 5379 Jul, [facility] [address] [id number] [place] [address]- 2021 Jun, [facility] [place] [facility] [address] [id number] [place] [address]- 4434 Jun, [facility] [address] [id number] [place] [address]- 5348 Jun, [facility] [address] [id number] [place] [address]- 6799 Jun, [facility] [address] [id number] [place] [address]- 5251 Jun, [facility] [address] [id number] [place] [address] Jun, [facility] [place] [facility] [address] [id number] [place] [address] 1969 May, [facility] [place] [facility] [address] [id number] [place] [address]- 3347 May, [facility] [place] [facility] [address] [id number] [place] [address]- 5062 Apr, [facility] [place] [facility] [address] [id number] [place] [address]- 2536 Apr, [facility] [place] [facility] [address] [id number] [place] [address]- 7097 Apr, [facility] [address] [id number] [place] [address]- 3908 Apr, [facility] [place] [facility] [address] [id number] [place] [address]- 9626 Apr, [facility] [place] [facility] [address] [facility] [id number] [place] [address]- 2346 Mar, [facility] [place] [facility] [address] [id number] [place] [address]- 0754 Mar, [facility] [place] [facility] [address] [id number] [place] [address]- 5172 Mar, [facility] [place] [facility] [address] [id number] [place] [address]- 8895 Mar, [facility] [place] [facility] [address] [id number] [place] [address]- 3670 14 Mar, 2012 [facility] [place] [facility] [address] [id number] [place] [address]- 3199 14 Mar, 2012 [facility] [place] [facility] [address] [id number] [place] [address]- 6398 Mar, [facility] [place] [facility] [address] [id number] [place] [address]- 4634 Mar, [facility] [place] [facility] [address] [id number] [place] [address]- 9804 05 Mar, 2012 [facility] [place] [facility] [address] [id number], [place] [address]- 7163 05 Mar, 2012 [facility] [place] [facility] [address] [id number] [place] [address]- 2796 30 Feb, 2012 [facility] [place] [facility] [address] [id number] [place] [address]- 8386 30 Feb, 2012 [facility] [place] [facility] [address] [id number] [place] [address]- 2546 13 Feb, 2012 [facility] [place] [facility] [address] [id number] [place] [address]- 0773 Feb, [facility] [place] [facility] [address] [id number] [place] [address]- 4828 Feb, [facility] [place] [facility] [address] [id number] [place] [address]- 0876 Feb, [facility] [place] [facility] [address] [id number] [place] [address]- 2808 Feb, [facility] [place] [facility] [address] [id number] [place] [address]- 6487 Feb, [facility] [place] [facility] [address] [id number] [place] [address]- 6168 Feb, [facility] [place] [facility] [address] [id number] [place] [address]- 7407 Feb, [facility] [place] [facility] [address] [facility] [id number] [place] [address]- 7940 Jan, [facility] [place] [facility] [address] [id number] [place] [address]- 0456 Jan, [facility] [place] [facility] [address] [id number] [place] [address]- 1207 Jan, [facility] [place] [facility] [address] [facility] [id number] [place] [address]- 5863 Jan, [facility] [place] [facility] [address] [id number] [place] [address]- 0947 28 Sep2011 [facility] [place] [facility] [address] [id number] [place] [address]- 4429 25 Sep2011 [facility] [place] [facility] [address] [id number] [place] [address]- 7020 18 Sep2011 [facility] [place] [facility] [address] [facility] [id number] [place] [address]- 1940 18 Sep2011 [facility] [place] [facility] [address] [id number] [place] [address]- 1481 17 Dec, 2011 [facility] [place] [facility] [address] [id number] [place] [address]- 4330 14 Dec, 2011 [facility] [place] [facility] [address] [id number] [place] [address]- 3844 13 Dec, 2011 [facility] [place] [facility] [address] [id number] [place] [address]- 1294 13 Dec, 2011 [facility] [place] [facility] [address] [id number] [place] [address]- 6221 06 Dec, 2011 [facility] [address] [id number] [place] [address]- 6988 31 Nov, 2011 [facility] [place] [facility] [address] [id number] [place] [address]- 3343 Nov, [facility] [address] [id number] [place] [address]- 3858 Nov, [facility] [address] [id number] [place] [address]- 3976 Nov, [facility] [place] [facility] [address] [id number] [place] [address]- 5999 Sep, [facility] [place] [facility] [address] [id number] [place] [address]- 2854 Sep, [facility] [place] [facility] [address] [id number] [place] [address]- 7159 Sep, [facility] [place] [facility] [address] [id number] [place] [address]- 7213 August, [facility] [place] [facility] [address] [id number] [place] [address]- 0192 August, [facility] [place] [facility] [address] [id number] [place] [address]- 1734 August, [facility] [place] [facility] [address] [id number] [place] [address]- 8683 August, [facility] [place] [facility] [address] [id number] [place] [address]- 3734 August, [facility] [place] [facility] [address] [id number] [place] [address]- 6303 August, [facility] [place] [facility] [address] [id number] [place] [address]- 9216 August, [facility] [place] [facility] [address] [id number] [place] [address]- 7776 August, [facility] [place] [facility] [address] [id number] [place] [address]- 5785 August, [facility] [place] [facility] [address] [id number] [place] [address]- 9775 Jul, [facility] [place] [facility] [address] [id number] [place] [address]- 6986 Jun, [facility] [place] [facility] [address] [id number] [place] [address]- 4577 Jun, [facility] [place] [facility] [address] [id number] [place] [address]- 0186 Jun, [facility] [place] [facility] [address] [id number] [place] [address]- 6536 Jun, [facility] [place] [facility] [address] [id number] [place] [address]- 1539 Jun, [facility] [place] [facility] [address] [id number] [place] [address]- 3882 Jun, [facility] [place] [facility] [address] [id number] [place] [address]- 6999 Jun, [facility] [place] [facility] [address] [id number] [place] [address]- 9101 Jun, [facility] [place] [facility] [address] [id number] [place] [address]- 5251 May, [facility] [place] [facility] [address] [id number] [place] [address]- 1424 May, [facility] [place] [facility] [address] [id number] [place] [address]- 9169 20 May, 2011 [facility] [address] [id number] [place] [address]- 0806 19 May, 2011 [facility] [place] [facility] [address] [id number] [place] [address] 2546 17 May, 2011 [facility] [address] [id number] [place] [address]- 0076 16 May, 2011 [facility] [address] [id number] [place] [address]- 5404 14 May, 2011 [facility] [address] [id number] [place] [address]- 9782 Apr, [facility] [address] [id number] [place] [address]- 5730 16 Apr, 2011 [facility] [address] [id number] [place] [address]- 7045 Apr, [facility] [address] [id number] [place] [address]- 0069 Apr, [facility] [address] [id number] [place] [address]- 2291 Apr, [facility] [address] [id number] [place] [address]- 7879 Apr, [facility] [address] [id number] [place] [address]- 5706 Apr, [facility] [address] [id number] [place] [address]- 0493 Apr, [facility] [place] [facility] [address] [id number] [place] [address]- 6046 Mar, [facility] [place] [facility] [address] [id number] [place] [address]- 8871 Mar, [facility] [address] [id number] [place] [address]- 9785 28 Feb, 2011 [facility] [place] [facility] [address] [id number] [place] [address]- 6437 17 Feb, 2011 [facility] [place] [facility] [address] [id number] [place] [address]65 17 Feb, 2011 [facility] [place] [facility] [address] [id number] [place] [address]- 1428 16 Feb, 2011 [facility] [place] [facility] [address] [id number] [place] [address]- 0208 16 Feb, 2011 [facility] [place] [facility] [address] [id number] [place] [address]- 3747 24 Jan, 2011 [facility] [place] [facility] [address] [id number] [place] [address]- 9711 12 Nov, 2010 [facility] [place] [facility] [address] [id number] [place] [address]- 2818 14 Sep, 2010 [facility] [place] [facility] [address] [id number] [place] [address]- 1118 August, [facility] [place] [facility] [address] [id number] [place] [address]- 6059 Jun, [facility] [place] [facility] [address] [id number] [place] [address]- 1289 14 May, 2010 [facility] [place] [facility] [address] [id number] [place] [address]- 2267 Apr, [facility] [place] [facility] [address] [id number] [place] [address]- 7977 22 Mar, 2010 [facility] [place] [facility] [address] [id number] [place] [address]- 0186 14 Mar, 2010 [facility] [place] [facility] [address] [id number] [place] [address]- 8778 14 Mar, 2010 [facility] [place] [facility] [address] [id number] [place] [address]- 0277 12 Feb, 2010 [facility] [place] [facility] [address] [id number], [place] [address]- 6318 Feb, [facility] [address] [id number], [place] [address]- 5992 Jan, [facility] [id number], [place] [address]- 4681 Jan, [facility] [id number], [place] [address]- 8083 Jan, [facility] [id number], [place] [address]- 7548 Oct, [facility] [id number] 6817 Oct, [facility] [id number] [address]563 Apr, [facility] [id number], [place] [address]- 5659 Mar, [facility] [id number], [place] [address]- 4248 Mar, [facility] [id number] [address]65 Jan, [facility] [address] [id number], [place] [address]- 7692 Dec, IMMUNIZATIONS No Known Immunizations SOCIAL HISTORY Never Assessed REASON FOR VISIT Refill request PLAN OF CARE VITAL SIGNS MEDICATIONS Medication Instructions Dosage Frequency Start Date End Date Duration Status Amitriptyline HCl 150MG Orally Once a day 1 tablet 24h 30 Active RESULTS No Results PROCEDURES No Known [...]
--- OUTSIDE RECORDS SUMMARY | 2018-02-13 04:09 | XMS REPORT ---
Author Author NICHELLE Cortes Organization [facility] Address [address] [place] [address] Care Team Providers Care Satellite Instruction Facilitator Name Role Phone paulaLIS NICHELLE Unavailable PROBLEMS Type Condition ICD9-CM Code OIL97-YF Code Onset Dates Condition Status SNOMED Code Problem Asthma J45.909 Active 635375490 Problem Reactive depression F32.9 Active 51853139 Problem Secondary hypertension I15.9 Active 56408695 Problem Open bite of left hand, initial encounter S61.452A Active 059520857 Problem Bitten by cat, initial encounter W55.01XA Active 491287174 Problem Moderate persistent asthma with exacerbation J45.41 Active 130953821 Problem Bronchitis J40 Active 20446158 Problem Simple chronic bronchitis J41.0 Active 43274960 Problem Recurrent major depressive disorder, in full remission F33.42 Active 287522284 Problem Renal failure N19 Active 28595537 Problem Joint pain of left hip on movement M25.552 Active 282321484 Problem Hypercholesterolemia E78.00 Active 57646413 Problem Environmental allergies Z91.09 Active 456875253 Problem PVD (peripheral vascular disease) I73.9 Active 038768779 Problem Diabetes mellitus E11.9 Active 97192318 Problem Proteinuria R80.9 Active 98425802 Problem Insomnia G47.00 Active 544194671 Problem Neuropathy G62.9 Active 341537751 Problem GERD (gastroesophageal reflux disease) K21.9 Active 736400006 ALLERGIES No Information ENCOUNTERS Encounter Location Date Diagnosis [facility] [address] [address] Sep, [facility] [address] [address] August, Neuropathy G62.9 [facility] [id number] [place] [address] 86062 -2737 August, Open bite of left hand, initial encounter S61.452A ; Encounter for immunization Z23 and Bitten by cat, initial encounter W55.01XA [place] [address] [id number] [place] [address] 28767- 5245 Jul, Environmental allergies Z91.09 [place] [address] 32526- 7347 15 Jun, 2017 [place] [address] 51336- 3152 14 Jun, 2017 Simple chronic bronchitis J41.0 ; PVD (peripheral vascular disease) I73.9 and Recurrent major depressive disorder, in full remission F33.42 [facility] [address] [id number] 13 Jun, 2017 Dental examination Z01.20 [facility] [address] [address] -[address]6 Jun, Moderate persistent asthma with exacerbation J45.41 [place] [address] 32551- 2415 May, Neuropathy G62.9 and Diabetes mellitus E11.9 [place] [address] [id number] [place] [address] 34003- 9405 Apr, [facility] [place] [address] 84241 -5287 Apr, Cough R05 [place] [id number] [place] [address] 88533- 0935 Feb, [place] [address] 20127- 5604 Feb, [place] [address] 51715- 9231 Feb, Diabetes mellitus E11.9 ; Neuropathy G62.9 ; Joint pain of left hip on movement M25.552 and Encounter for immunization Z23 [place] [id number] [place] [address] 35713- 7724 Feb, [facility] [address] 78407- 7863 Feb, Diabetes mellitus E11.9 [facility] [id number] [place] [address] 15465- 0988 Feb, [facility] [address] 32517- 3826 Jan, [facility] [id number] [place] [address] 52426- 4783 Jan, Secondary hypertension I15.9 [facility] [address] 95962- 0606 Dec, Diabetes mellitus E11.9 [facility] [address] [id number] Nov, Encounter for dental examination Z01.20 [facility] [address] [id number] [place] [address] 95200 -1131 Oct, Allergic contact dermatitis due to plants, except food L23.7 [facility] [id number] [place] [address] 50879- 4485 Oct, [facility] [id number] [place] [address] 80459- 3414 Oct, Diabetes mellitus E11.9 ; PVD (peripheral vascular disease) I73.9 ; Neuropathy G62.9 ; GERD (gastroesophageal reflux disease) K21.9 ; Insomnia G47.00 ; Environmental allergies Z91.09 ; Secondary hypertension I15.9 ; Reactive depression F32.9 ; Hypercholesterolemia E78.00 and Joint pain of left hip on movement M25.552 [facility] [id number] [place] [address] 36131- 7736 Sep, Diabetes mellitus E11.9 [facility] [address] 06374- 3754 Sep, Diabetes mellitus E11.9 [facility] [id number] [place] [address] 23226- 8941 Sep, Diabetes mellitus E11.9 [facility] [address] 02210- 3765 Sep, Neuropathy G62.9 [facility] [id number] [place] [address] 37085- 4604 August, [facility] [address] 00783- 9741 Jul, [place] [address] 70347- 9212 Jun, [place] [address] 08153- 7794 Jun, Diabetes mellitus E11.9 ; PVD (peripheral vascular disease) I73.9 ; Neuropathy G62.9 ; Joint pain of left hip on movement M25.552 ; Renal failure N19 ; Asthma J45.909 ; Reactive depression F32.9 ; Pure hypercholesterolemia, unspecified E78.00 and Insomnia G47.00 [place] [address] 89440- 6438 Jun, Joint pain of left hip on movement M25.552 and Diabetes mellitus E11.9 [facility] [id number] [place] [address] 44835- 0029 Jun, [facility] [id number] [place] [address] 48051 -9446 May, Cough R05 and Bronchitis J40 [facility] [address] [id number] [place] [address] 21211- 3531 May, [facility] [id number] [place] [address] 26877- 8399 May, [facility] [id number] [place] [address] 99412- 2290 May, Asthma J45.909 and Bronchitis J40 [facility] [id number] [place] [address] 16161- 4181 May, [facility] [address] 69933- 7642 May, Bronchitis J40 [facility] [address] 01667- 9653 May, [facility] [address] 77435- 7221 Apr, Diabetes mellitus E11.9 ; PVD (peripheral vascular disease) I73.9 ; GERD (gastroesophageal reflux disease) K21.9 ; Asthma J45.909 ; Insomnia G47.00 ; Environmental allergies Z91.09 ; Secondary hypertension I15.9 ; Joint pain of left hip on movement M25.552 ; Hypercholesterolemia E78.0 and Reactive depression F32.9 [place] [address] 41870- 3942 Mar, Diabetes mellitus E11.9 ; PVD (peripheral vascular disease) I73.9 and Hypercholesterolemia E78.0 [place] [address] 34872- 9232 Mar, Diabetes mellitus E11.9 and Hypercholesterolemia E78.0 [place] [id number] [place] [address] 81407- 4351 Mar, [place] [address] 97135- 3821 Feb, [place] [address] 05129- 7020 Feb, [place] [address] 72654- 0034 Feb, [place] [address] 97116- 9715 Jan, Encounter for immunization Z23 [place] [address] [place] [address] 2607 Jan, [facility] [id number] [place] [address] 41897- 0043 Dec, [place] [id number] [place] [address] 50487- 4441 Dec, Diabetes mellitus E11.9 ; PVD (peripheral vascular disease) I73.9 ; GERD (gastroesophageal reflux disease) K21.9 ; Insomnia G47.00 ; Joint pain of left hip on movement M25.552 ; Asthma J45.909 ; Environmental allergies Z91.09 ; Hypercholesterolemia E78.0 ; Essential hypertension I10 and Neuropathy G62.9 [place] [id number] [place] [address] 91115- 7711 Nov, [place] [id number] [place] [address] 29280- 7297 Nov, [place] [address] 77395- 4175 Oct, PVD (peripheral vascular disease) I73.9 and Diabetes mellitus E11.9 [place] [id number] [place] [address] 16067- 2901 Sep, Diabetes mellitus E11.9 ; PVD (peripheral vascular disease) I73.9 ; Neuropathy G62.9 ; Joint pain of left hip on movement M25.552 ; GERD ( gastroesophageal reflux disease) K21.9 ; Asthma J45.909 ; Insomnia G47.00 ; Secondary hypertension I15.9 and Hypercholesteremia E78.0 [place] [id number] [place] [address] 22241- 8420 August, [place] [id number] [place] [address] 93654- 7993 August, Neuropathy G62.9 [place] [id number] [place] [address] 81414- 3110 August, Neuropathy G62.9 [place] [address] [place] [id number] [place] [address] 52508- 3729 30 Jun, 2015 Diabetes mellitus E11.9 ; Joint pain of left hip on movement M25.552 ; PVD (peripheral vascular disease) I73.9 ; Neuropathy G62.9 ; GERD (gastroesophageal reflux disease) K21.9 ; Asthma J45.909 ; Insomnia G47.00 ; Environmental allergies Z91.09 ; HTN (hypertension) I10 and Hypercholesteremia E78.0 [place] [id number] [place] [address] 50975- 4915 Jun, [place] [address] 41591- 6681 Jun, [place] [id number] [place] [address] 93235- 7565 Jun, [place] [id number] [place] [address] 02625- 3031 Apr, [place] [id number] [place] [address] 65598- 8700 Apr, [facility] [id number] [place] [address] 13755- 2005 Apr, Sinusitis J32.9 [place] [id number] [place] [address] 63072- 6756 Apr, Neuropathy G62.9 [place] [id number] [place] [address] 65038- 8568 Mar, [place] [address] [id number] [place] [address] 76185- 254 Mar, [place] [address] [id number] [place] [address] 64805- 2146 Mar, Diabetes mellitus E11.9 ; PVD (peripheral vascular disease) I73.9 ; Neuropathy G62.9 ; GERD (gastroesophageal reflux disease) K21.9 ; Renal failure N19 ; Asthma J45.909 ; Insomnia G47.00 ; Environmental allergies Z91.09 ; Sinusitis J32.9 ; Cough R05 ; Edema R60.9 ; HTN (hypertension) I10 and Hypercholesterolemia E78.0 [facility] [id number] [place] [address] 11803 -0686 Mar, Dysuria R30.0 ; Vomiting, unspecified R11.10 ; Benign essential hypertension I10 and Dizziness R42 [facility] [id number] [place] [address] 63738- 1829 Mar, [facility] [id number] [place] [address] 89423- 6267 Mar, [facility] [address] 22327- 1614 Feb, [facility] [id number] [place] [address] 15302- 6705 Feb, [facility] [id number] [place] [address] 36419- 2606 Feb, [facility] [id number] [place] [address] 64872- 5809 Feb, [facility] [id number] [place] [address] 14870- 7406 Feb, Joint pain of left hip on movement M25.552 ; Lumbago M54.5 and UTI (urinary tract infection) N39.0 [facility] [id number] [place] [address] 31765- 9574 Feb, [facility] [id number] [place] [address] 74453- 3913 Feb, [facility] [id number] [place] [address] 34146- 2706 Jan, [facility] [id number] [place] [address] 72981- 4320 Jan, [facility] [id number] [place] [address] 01650- 6543 Jan, [place] [address] [place] [id number] [place] [address] 13924- 9391 Jan, [facility] [address] 43389- 7248 Jan, 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 [facility] [address] 87808- 9199 30 Dec, 2014 Hypertension 401.9 and Diabetes 250.00 [place] [address] 36385- 9437 Dec, Diabetes 250.00 ; Influenza vaccine administered V04.81 ; Unspecified peripheral vascular disease 443.9 ; Issue of repeat prescriptions V68.1 ; Unspecified hereditary and idiopathic peripheral neuropathy 356.9 ; Insomnia, unspecified 780.52 ; Hypercholesteremia 272.0 ; Pain in joint, site unspecified 719.40 ; Dizziness 780.4 and PCV-13 (PREVNAR) DX V03.82 [place] [address] 92684- 6162 Dec, [place] [address] 65276- 9632 Dec, [place] [address] 94283- 8919 Dec, [place] [address] 26961- 6539 Dec, [place] [address] 80244- 7362 Dec, [facility] [address] 30499- 1599 Dec, [place] [address] 43391- 2976 Nov, [facility] [address] 83712- 5085 Nov, Environmental allergies V15.09 ; Sacroiliitis, not elsewhere classified 720.2 and Cough 786.2 [facility] [address] [address]- 7455 Oct, [facility] [address] [id number] [place] [address] 18278- 3061 Oct, [facility] [id number] [place] [address] 49219- 1300 Oct, [facility] [address] [place] [id number] [place] [address] 59595- 2982 Sep, [facility] [address] [id number] [place] [address] 63967- 2024 Sep, [place] [id number] [place] [address] 32999- 6811 Sep, Dysuria 788.1 and Diabetes with other specified manifestations, type II or unspecified type, not stated as uncontrolled 250.80 [place] [address] [id number] [place] [address] 19176- 3365 Sep, [facility] [id number] [place] [address] 30412- 8699 Sep, Diabetes with other specified manifestations, type II or unspecified type, not stated as uncontrolled 250.80 [place] [address] [id number] [place] [address] 92230- 5032 Sep, DM w/o complication type II 250.00 ; Unspecified peripheral vascular disease 443.9 ; Pain in joint, pelvic region and thigh 719.45 ; Asthma , unspecified, unspecified status 493.90 ; Hypercholesteremia 272.0 ; Fatigue 780.79 ; UTI (lower urinary tract infection) 599.0 and Essential hypertension 401.9 [place] [id number] [place] [address] 58151- 8683 Sep, [facility] [id number] [place] [address] 98049- 2693 Sep, [facility] [id number] [place] [address] [place] [address]- 1976 Sep, [facility] [address] [facility] [id number] August, [facility] [address] 8994 August, [facility] [address] 2263 August, Diabetes with other specified manifestations, type II or unspecified type, not stated as uncontrolled 250.80 [facility] [id number]- 5402 Jul, Peripheral vascular disease 443.9 [facility] [address] [address]- 3805 Jul, [facility] [address] [address]- 7772 Jul, [facility] [address] [address]- 3664 Jun, [facility] [address] [address]- 7991 Jun, [facility] [address] [address]- 3429 Jun, [facility] [address] [address]- 3844 Jun, [facility] [id number] [address]- 9531 Jun, [facility] [id number] [address]- 2594 Jun, [facility] [id number] 0746 Jun, [facility] [id number] 6435 Jun, [facility] [address] [id number] [place] [address]- 5067 Jun, [facility] [place] [facility] [address] [id number] [place] [address]- 2616 May, 2014 [facility] [place] [facility] [address] [id number] [place] [address]- 2546 May, 2014 [facility] [place] [facility] [address] [id number] [place] [address]- 5722 May, 2014 [facility] [place] [facility] [address] [id number] [place] [address]- 2541 May, 2014 [facility] [place] [facility] [address] [id number] [place] [address]- 2830 May, 2014 [facility] [place] [facility] [address] [facility] [id number] [place] [address]- 8531 May, 2014 [facility] [place] [facility] [address] [facility] [id number] [place] [address]- 3749 May, 2014 [facility] [place] [facility] [address] [facility] [id number] [place] [address]- 8135 May, 2014 [facility] [place] [facility] [address] [facility] [id number] [place] [address]- 8839 May, 2014 [facility] [place] [facility] [address] [facility] [id number] [place] [address]- 9045 May, 2014 [facility] [place] [facility] [address] [facility] [id number] [place] [address]- 2544 May, 2014 [facility] [place] [facility] [address] [id number] [place] [address]- 2544 May, [facility] [place] [facility] [address] [id number] [place] [address]- 0370 May, 2014 [facility] [place] [facility] [address] [facility] [id number] [place] [address]- 6410 Apr, [facility] [place] [facility] [address] [facility] [id number] [place] [address]- 5602 Apr, [facility] [address] [id number] [place] [address]- 8767 Apr, [facility] [place] [facility] [address] [id number] [place] [address]- 7459 Apr, [facility] [place] [facility] [address] [id number] [place] [address]- 4211 Apr, [facility] [place] [facility] [address] [id number] [place] [address]- 1990 Apr, [facility] [place] [facility] [address] [id number] [place] [address]- 3180 Apr, [facility] [place] [facility] [address] [id number] [place] [address]- 2463 Apr, [facility] [address] [id number] [place] [address]- 3687 Mar, [facility] [place] [facility] [address] [id number] [place] [address]- 9522 Mar, [facility] [place] [facility] [address] [id number] [place] [address]- 0267 Mar, [facility] [place] [facility] [address] [id number] [place] [address]- 2517 Mar, [facility] [place] [facility] [address] [id number] [place] [address]- 0850 Mar, [facility] [place] [facility] [address] [id number] [place] [address]- 0561 Mar, [facility] [place] [facility] [address] [id number] [place] [address]- 8782 Mar, [facility] [place] [facility] [address] [id number] [place] [address]- 5494 Mar, [facility] [place] [facility] [address] [id number] [place] [address]- 1654 Mar, [facility] [place] [facility] [address] [id number] [place] [address]- 4243 Mar, [facility] [place] [facility] [address] [id number] [place] 7823 Mar, [facility] [place] [facility] [address] [id number] [place] 0563 Mar, [facility] [place] [facility] [address] [id number] [place] [address]- 3604 Mar, [facility] [place] [facility] [address] [id number] [place] 3575 Mar, [facility] [place] [facility] [address] [id number] [place] [address]- 9881 Feb, [facility] [place] [facility] [address] [id number] [place] [address]- 3267 Feb, [facility] [place] [facility] [address] [id number] [place] [address]- 5609 Feb, [facility] [place] [facility] [address] [id number] [place] [address]- 4918 Feb, [facility] [place] [facility] [address] [id number] [place] [address]- 6339 Feb, [facility] [place] [facility] [address] [id number] [place] [address]- 8182 Feb, [facility] [place] [facility] [address] [id number] [place] [address]- 5257 Feb, [facility] [place] [facility] [address] [id number] [place] [address] Feb, [facility] [place] [facility] [address] [id number] [place] [address] Feb, [facility] [place] [facility] [address] [id number] [place] [address] Feb, [facility] [place] [facility] [address] [id number] [place] [address] Feb, [facility] [place] [facility] [address] [id number] [place] [address] Feb, [facility] [place] [facility] [address] [id number] [place] [address] Feb, [facility] [place] [facility] [address] [id number] [place] [address] Feb, [facility] [place] [facility] [address] [id number] [place] [address] Feb, [facility] [place] [facility] [address] [id number] [place] [address] Feb, [facility] [place] [facility] [address] [id number] [place] [address] Jan, [facility] [place] [facility] [address] [id number] [place] [address] Jan, [facility] [place] [facility] [address] [id number] [place] [address] Jan, [facility] [place] [facility] [address] [id number] [place] [address] Jan, [facility] [place] [facility] [address] [id number] [address] Jan, [facility] [place] [facility] [address] [id number] [place] [address] Jan, [facility] [place] [facility] [address] [id number] [place] [address] Jan, [facility] [place] [facility] [address] [id number] [place] [address] Jan, [facility] [place] [facility] [address] [id number] [address] 10 Dec, 2013 [facility] [place] [facility] [address] [id number] [place] [address] 10 Dec, 2013 [facility] [place] [facility] [address] [id number] [place] [address] Nov, [facility] [place] [facility] [address] [id number] [place] [address] Nov, [facility] [place] [facility] [address] [id number] [place] [address] Nov, [facility] [place] [facility] [address] [id number] [place] [address] Nov, [facility] [place] [facility] [address] [id number] [place] [address] Nov, [facility] [place] [facility] [address] [id number] [place] [address] Nov, [facility] [place] [facility] [address] [id number] [place] [address] Oct, [facility] [place] [facility] [address] [id number] [place] [address] Oct, [facility] [place] [facility] [address] [id number] [place] [address] Oct, [facility] [place] [facility] [address] [id number] [place] [address] Oct, [facility] [place] [facility] [address] [id number] [place] [address] Sep, [facility] [place] [facility] [address] [id number] [place] [address] Sep, [facility] [place] [facility] [address] [address] [id number] [place] [address] Sep, [facility] [place] [facility] [address] [id number] [place] [address] Sep, [facility] [place] [facility] [address] [id number] [place] [address] 289[address] Sep, [facility] [place] [facility] [address] [id number] [place] [address] Sep, [facility] [place] [facility] [address] [id number] [place] [address] 360[address] August, [facility] [address] [id number] [place] [address] 6007 August, [facility] [place] [facility] [address] [id number] [place] [address] 7974 August, [facility] [place] [facility] [address] [id number] [place] [address] 1273 August, [facility] [address] [id number] [place] [address] 4631 August, [facility] [place] [facility] [address] [id number] [place] [address] 36[address] August, [facility] [address] [id number] [place] [address] 4696 August, [facility] [address] [id number] [place] [address] 0204 August, [facility] [address] [id number] [place] [address] 5534 August, [facility] [place] [facility] [address] [id number] [place] [address] 9496 August, [facility] [place] [facility] [address] [id number] [place] [address] 6385 August, [facility] [place] [facility] [address] [id number] [place] [address] 0064 August, [facility] [place] [facility] [address] [id number] [place] [address]- 1425 Jul, [facility] [place] [facility] [address] [id number] [place] [address] 2391 Jul, [facility] [place] [facility] [address] [id number] [place] [address] Jul, [facility] [place] [facility] [address] [id number] [place] [address]- 4588 18 Jul, 2013 [facility] [place] [facility] [address] [id number] [place] [address] 9939 Jul, [facility] [place] [facility] [address] [id number] [place] [address] Jul, [facility] [place] [facility] [address] [id number] [place] [address]- 5267 Jul, [facility] [place] [facility] [address] [id number] [place] [address]- 1332 Jul, [facility] [place] [facility] [address] [id number] [place] [address]- 5769 Jul, [facility] [place] [facility] [address] [id number] [place] [address]- 9499 Jul, [facility] [place] [facility] [address] [id number] [place] [address] 2416 Jul, [facility] [place] [facility] [address] [id number] [place] [address]- 3004 Jun, [facility] [place] [facility] [address] [id number] [place] [address]- 4149 31 Jun, 2013 [facility] [place] [facility] [address] [id number] [place] [address]- 3411 Jun, [facility] [place] [facility] [address] [id number] [place] [address]- 8685 28 Jun, 2013 [facility] [place] [facility] [address] [id number] [place] [address]- 9663 Jun, [facility] [place] [facility] [address] [id number] [place] [address]- 9358 Jun, [facility] [place] [facility] [address] [id number] [place] [address]- 2481 Jun, [facility] [place] [facility] [address] [id number] [place] [address]- 3094 Jun, [facility] [place] [facility] [address] [id number] [place] [address]- 1234 Jun, [facility] [place] [facility] [address] [id number] [place] [address]- 6357 May, [facility] [place] [facility] [address] [id number] [place] [address]- 4387 May, [facility] [place] [facility] [address] [id number] [place] [address]- 3175 May, [facility] [place] [facility] [address] [id number] [place] [address]- 0635 Apr, [facility] [place] [facility] [address] [id number] [place] [address]- 2212 Apr, [facility] [place] [facility] [address] [id number] [place] [address] 1891 Apr, [facility] [place] [facility] [address] [id number] [place] [address]- 5268 Apr, [facility] [place] [facility] [address] [id number] [place] [address]- 4066 Apr, [facility] [place] [facility] [address] [id number] [place] [address]- 9400 Apr, [facility] [place] [facility] [address] [id number] [place] [address]- 2415 Apr, [facility] [place] [facility] [address] [id number] [place] [address]- 2853 Apr, [facility] [place] [facility] [address] [id number] [place] [address]- 0830 Mar, [facility] [place] [facility] [address] [id number] [place] [address]- 4837 Mar, [facility] [place] [facility] [address] [id number] [place] [address]- 2066 Feb, [facility] [place] [facility] [address] [id number] [place] [address]93 Feb, [facility] [place] [facility] [address] [id number] [place] [address]- 4647 Jan, [facility] [place] [facility] [address] [id number] [place] [address]- 1530 Jan, [facility] [place] [facility] [address] [id number] [place] [address]- 8309 Jan, [facility] [place] [facility] [address] [id number] [place] [address]- 1803 Jan, [facility] [place] [facility] [address] [id number] [place] [address]- 2897 Jan, [facility] [place] [facility] [address] [id number] [place] [address]- 4634 Jan, [facility] [place] [facility] [address] [id number] [place] [address]- 9097 Jan, [facility] [place] [facility] [address] [id number] [address] 2[address] Jan, [facility] [place] [facility] [address] [id number] [address]- 0277 17 Jan, 2013 [facility] [place] [facility] [address] [id number] [address]- 5061 17 Jan, 2013 [facility] [place] [facility] [address] [id number] [address]- 9757 14 Jan, 2013 [facility] [place] [facility] [address] [id number] [place] [address]- 8403 14 Jan, 2013 [facility] [place] [facility] [address] [id number] [address]- 5806 10 Jan, 2012 [facility] [place] [facility] [address] [id number] [address]- 8239 10 Jan, 2012 [facility] [place] [facility] [address] [id number] [address]- 2484 10 Jan, 2012 [facility] [place] [facility] [address] [id number] [place] [address]- 7316 10 Jan, 2012 [facility] [place] [facility] [address] [id number] [place] [address]- 1918 Jan, 2012 [facility] [place] [facility] [address] [id number] [place] [address]- 9959 Jan, 2012 [facility] [place] [facility] [address] [id number] [place] [address]- 5064 08 Jan, 2012 [facility] [place] [facility] [address] [id number] [place] [address]- 9939 Jan, 2012 [facility] [place] [facility] [address] [id number] [place] [address]- 7012 Jan, 2012 [facility] [place] [facility] [address] [id number] [place] [address]- 2741 Jan, 2012 [facility] [place] [facility] [address] [id number] [place] [address]- 1914 Jan, 2012 [facility] [place] [facility] [address] [id number] [place] [address]- 8340 Dec, 2012 [facility] [place] [facility] [address] [id number] [place] [address]- 5437 16 Dec, 2012 [facility] [place] [facility] [address] [id number] [place] [address]- 8821 Nov, [facility] [place] [facility] [address] [id number] [place] [address]- 6783 Oct, 2012 [facility] [place] [facility] [address] [id number] [place] [address]- 1654 Oct, 2012 [facility] [place] [facility] [address] [id number] [place] [address]- 7562 Oct, 2012 [facility] [place] [facility] [address] [id number] [place] [address]- 8584 Oct, 2012 [facility] [place] [facility] [address] [id number] [place] [address]- 2542 Oct, [facility] [place] [facility] [address] [id number] [place] [address]- 0113 Oct, [facility] [address] [id number] [place] [address]- 7120 Sep, [facility] [place] [facility] [address] [id number] [place] Sep, [facility] [place] [facility] [address] [id number] [place] [address]- 6468 Sep, [facility] [address] [id number] [place] [address]- 7369 Jul, [facility] [address] [id number] [place] [address]- 8796 Jul, [facility] [address] [id number] [place] [address]- 0543 Jul, [facility] [address] [id number] [place] [address]- 8289 Jun, [facility] [place] [facility] [address] [id number] [place] [address]- 7687 Jun, [facility] [place] [facility] [address] [id number] [place] [address]- 1861 Jun, [facility] [place] [facility] [address] [id number] [place] [address]- 8363 Jun, [facility] [place] [facility] [address] [id number] [place] [address]- 5306 Jun, [facility] [place] [facility] [address] [id number] [place] [address]- 6817 Jun, [facility] [place] [facility] [address] [id number] [place] [address]- 7437 May, [facility] [place] [facility] [address] [id number] [place] [address]- 7573 May, [facility] [place] [facility] [address] [id number] [place] [address]- 5740 Apr, [facility] [address] [id number] [place] [address]- 9733 29 Apr, 2012 [facility] [place] [facility] [address] [id number] [place] [address]- 6107 Apr, [facility] [address] [id number] [place] [address]- 4486 Apr, [facility] [place] [facility] [address] [id number] [place] [address]- 8089 Apr, [facility] [address] [id number] [place] [address]- 1436 Mar, [facility] [place] [facility] [address] [id number] [place] [address]- 3506 31 Mar, 2012 [facility] [address] [id number] [place] [address]- 6499 Mar, [facility] [place] [facility] [address] [id number] [place] [address]- 0872 Mar, [facility] [address] [id number] [place] [address]- 1103 14 Mar, 2012 [facility] [place] [facility] [address] [id number] [place] [address]- 5444 14 Mar, 2012 [facility] [address] [id number] [place] [address]- 2257 Mar, [facility] [place] [facility] [address] [id number] [place] [address]- 3894 Mar, [facility] [place] [facility] [address] [id number] [place] [address]- 8330 05 Mar, 2012 [facility] [place] [facility] [address] [id number] [place] [address]- 0444 05 Mar, 2012 [facility] [place] [facility] [address] [id number] [place] [address]- 7513 30 Feb, 2012 [facility] [place] [facility] [address] [id number] [place] [address]- 1394 Feb, [facility] [place] [facility] [address] [id number] [place] [address]- 1037 Feb, [facility] [place] [facility] [address] [id number] [place] [address]- 2946 Feb, [facility] [place] [facility] [address] [id number] [place] [address]- 7972 Feb, [facility] [place] [facility] [address] [id number] [place] [address]- 8121 Feb, [facility] [place] [facility] [address] [id number] [place] [address] Feb, [facility] [place] [facility] [address] [facility] [id number] [place] [address]- 0408 Feb, [facility] [place] [facility] [address] [id number] [place] [address]- 5346 Feb, [facility] [place] [facility] [address] [id number] [place] [address]- 4089 Feb, [facility] [place] [facility] [address] [id number] [place] [address]- 1231 Jan, [facility] [place] [facility] [address] [facility] [id number] [place] [address]- 3296 Jan, [facility] [place] [facility] [address] [id number] [place] [address]- 7087 Jan, [facility] [place] [facility] [address] [id number] [place] [address]- 5730 Jan, [facility] [place] [facility] [address] [id number] [place] [address]- 2345 Dec, [facility] [place] [facility] [address] [id number] [place] [address]- 7456 Dec, [facility] [place] [facility] [address] [id number] [place] [address]- 7775 Dec, [facility] [place] [facility] [address] [id number] [place] [address]- 1580 18 Dec, 2011 [facility] [place] [facility] [address] [id number] [place] [address]- 4083 17 Dec, 2011 [facility] [place] [facility] [address] [id number] [place] [address]- 3098 14 Dec, 2011 [facility] [place] [facility] [address] [id number] [place] [address]- 9675 13 Dec, 2011 [facility] [place] [facility] [address] [id number] [place] [address]- 2978 13 Dec, 2011 [facility] [place] [facility] [address] [id number] [place] [address]- 9375 06 Dec, 2011 [facility] [place] [facility] [address] [id number] [place] [address]- 2119 31 Nov, 2011 [facility] [place] [facility] [address] [id number] [place] [address]- 8306 30 Nov, 2011 [facility] [place] [facility] [address] [id number] [place] [address]- 6811 Nov, [facility] [place] [facility] [address] [id number] [place] [address]- 1797 Nov, [facility] [place] [facility] [address] [id number] [place] [address]- 9926 Sep, [facility] [place] [facility] [address] [id number] [address]- 4214 Sep, [facility] [place] [facility] [address] [id number] [place] [address]- 6264 Sep, [facility] [place] [facility] [address] [id number] [place] [address]- 5794 August, [facility] [place] [facility] [address] [id number] [place] [address]- 8313 August, [facility] [place] [facility] [address] [id number] [place] [address]- 8141 August, [facility] [address] [id number] [place] [address]- 9226 August, [facility] [place] [facility] [address] [id number] [place] [address]- 9023 August, [facility] [place] [facility] [address] [id number] [place] [address]- 7656 August, [facility] [place] [facility] [address] [id number] [place] [address]- 0062 August, [facility] [place] [facility] [address] [id number] [place] [address]- 5763 August, [facility] [place] [facility] [address] [id number] [place] [address]- 1108 August, [facility] [address] [id number] [place] [address]- 5613 Jul, [facility] [place] [facility] [address] [id number] [place] [address]- 8885 Jun, [facility] [place] [facility] [address] [id number] [place] [address]- 2968 Jun, [facility] [place] [facility] [address] [id number] [place] [address]- 7706 Jun, [facility] [place] [facility] [address] [id number] [place] [address]- 7100 Jun, [facility] [place] [facility] [address] [id number] [place] [address]- 8142 05 Jun, 2011 [facility] [place] [facility] [address] [id number] [place] [address]- 0937 Jun, [facility] [place] [facility] [address] [id number] [place] [address]- 6646 Jun, [facility] [place] [facility] [address] [id number] [place] [address]- 5036 Jun, [facility] [place] [facility] [address] [id number] [place] [address]- 3536 27 May, 2011 [facility] [place] [facility] [address] [id number] [place] [address]- 5426 21 May, 2011 [facility] [place] [facility] [address] [id number] [place] [address] 2546 20 May, 2011 [facility] [place] [facility] [address] [id number] [place] [address] 2546 19 May, 2011 [facility] [place] [facility] [address] [id number] [place] [address] 2546 17 May, 2011 [facility] [place] [facility] [address] [id number] [place] [address] 2546 16 May, 2011 [facility] [place] [facility] [address] [id number] [place] [address]- 5716 14 May, 2011 [facility] [place] [facility] [address] [id number] [place] [address]- 7917 Apr, [facility] [place] [facility] [address] [id number] [place] [address]- 7594 Apr, [facility] [place] [facility] [address] [id number] [place] [address]- 6527 Apr, [facility] [place] [facility] [address] [id number] [place] [address] 2540 Apr, [facility] [place] [facility] [address] [id number] [place] [address]- 8498 Apr, [facility] [place] [facility] [address] [id number] [place] [address] 2541 09 Apr, 2011 [facility] [place] [facility] [address] [id number] [place] [address] 2546 05 Apr, 2011 [facility] [place] [facility] [address] [id number] [place] [address] 2542 03 Apr, 2011 [facility] [place] [facility] [address] [id number] [place] [address]- 8026 29 Mar, 2011 [facility] [place] [facility] [address] [id number] [place] [address]- 7489 20 Mar, 2011 [facility] [place] [facility] [address] [id number] [place] [address]- 0325 28 Feb, 2011 [facility] [place] [facility] [address] [id number] [place] [address]- 5923 17 Feb, 2011 [facility] [place] [facility] [address] [id number] [place] [address]- 8577 17 Feb, 2011 [facility] [place] [facility] [address] [id number] [place] 1546 16 Feb, 2011 [facility] [place] [facility] [address] [id number] [place] [address]- 2861 16 Feb, 2011 [facility] [place] [facility] [address] [id number] [place] [address]- 7013 24 Jan, 2011 [facility] [place] [facility] [address] [id number] [place] [address]- 3278 12 Nov, 2010 [facility] [place] [facility] [address] [id number] [place] [address]- 5352 14 Sep, 2010 [facility] [place] [facility] [address] [id number] [place] [address]- 9315 August, [facility] [place] [facility] [address] [id number] [place] [address] 16 Jun, 2010 [facility] [place] [facility] [address] [id number] [place] [address] 14 May, 2010 [facility] [place] [facility] [address] [id number] [place] [address] 18 Apr, 2010 [facility] [place] [facility] [address] [id number] [place] [address] 22 Mar, 2010 [facility] [place] [facility] [address] [id number] [place] 14 Mar, 2010 [facility] [place] [facility] [address] [address] Mar, [facility] [address] [address] Feb, [facility] [address] [address] Feb, [facility] [address] [address] Jan, [facility] [address] [facility] [id number] [address] Jan, [facility] [id number] [place] [address] Jan, [facility] [address] [address] Oct, [facility] [address] [address] Oct, [facility] [address] [address] Apr, [facility] [address] [address] Mar, [facility] [address] [address] Mar, [facility] [address] [address] Jan, [facility] [id number] [address] Dec, IMMUNIZATIONS No Known Immunizations SOCIAL HISTORY [...]
--- OUTSIDE RECORDS SUMMARY | 2018-02-13 04:09 | XMS REPORT ---
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 Phone NICHELLE VALENZUELA Unavailable [...] Start Date End Date Status Dosage Levemir [facility] [id number] 100 UNIT/ML Subcutaneous 2 times a day Jun 02, 2014 inject 25 unit in am and pm1 Injection by Subcutaneous route 2 times per day 30units AM, 34units at HS Levemir FlexTouch [facility] [id number] 100 UNIT/ML Subcutaneous 2 times a day Mar 15, 2015 30 units in am and 34 units at hs [place] [facility] [id number] 31G X 6 MM 2 times a day Mar 15, 2015 as directed Results No Known Results Summary Purpose [employer] Submission
--- OUTSIDE RECORDS SUMMARY | 2018-02-13 04:09 | XMS REPORT ---
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 Name Role Phone NICHELLE VALENZUELA Unavailable PROBLEMS Type Condition ICD9-CM Code XEV63-QE Code Onset Dates Condition Status SNOMED Code Problem PVD (peripheral vascular disease) I73.9 Active 493901402 Problem Insomnia G47.00 Active 690979484 Problem Diabetes mellitus E11.9 Active 58250704 Problem Encounter for dental examination Z01.20 Active 431985884 Problem Bronchitis J40 Active 46313024 Problem Asthma J45.909 Active 135970094 Problem GERD (gastroesophageal reflux disease) K21.9 Active 356408425 Problem Reactive depression F32.9 Active 52906853 Problem Secondary hypertension I15.9 Active 22532671 Problem Renal failure N19 Active 12143447 Problem Joint pain of left hip on movement M25.552 Active 936615980 Problem Hypercholesterolemia E78.00 Active 84608284 Problem Proteinuria R80.9 Active 58719932 Problem Environmental allergies Z91.09 Active 807530600 Problem Neuropathy G62.9 Active 369459968 ALLERGIES No Information SOCIAL HISTORY Never Assessed PLAN OF CARE VITAL SIGNS MEDICATIONS Medication Instructions Dosage Frequency Start Date End Date Duration Status Levemir 100 UNIT/ML Subcutaneous 2 times a day inject 25 unit in am and pm 12h 12 May, 2014 30 days Active RESULTS No Results [...]
--- OUTSIDE RECORDS SUMMARY | 2018-02-13 04:10 | XMS REPORT ---
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 Name Role Phone NICHELLE VALENZUELA Unavailable PROBLEMS Type Condition ICD9-CM Code BNV39-OH Code Onset Dates Condition Status SNOMED Code Problem PVD (peripheral vascular disease) I73.9 Active 784499525 Problem Insomnia G47.00 Active 365503398 Problem Diabetes mellitus E11.9 Active 07034664 Problem Encounter for dental examination Z01.20 Active 620959956 Problem Bronchitis J40 Active 01244123 Problem Asthma J45.909 Active 548451211 Problem GERD (gastroesophageal reflux disease) K21.9 Active 509063348 Problem Reactive depression F32.9 Active 71244249 Problem Secondary hypertension I15.9 Active 13633447 Problem Renal failure N19 Active 86501916 Problem Joint pain of left hip on movement M25.552 Active 037999217 Problem Hypercholesterolemia E78.00 Active 27735908 Problem Proteinuria R80.9 Active 50216257 Problem Environmental allergies Z91.09 Active 076252567 Problem Neuropathy G62.9 Active 203799216 ALLERGIES No Information SOCIAL HISTORY Never Assessed [...]
--- OUTSIDE RECORDS SUMMARY | 2018-02-13 04:10 | XMS REPORT ---
Author Author NICHELLE VALENZUELA [facility] eClinicalWorks Address Unknown Phone Unavailable Care Team Providers Care [employer] Faculty Member Name Role Phone NICHELLE VALENZUELA Unavailable Allergies, Adverse Reactions, Alerts Substance Reaction Event Type Stadol Info Not Available Drug Allergy Glucotrol Info Not Available Drug Allergy Problems Problem Type Condition Code Onset Dates Condition Status Problem Insomnia G47.00 Active Problem Renal failure N19 Active Problem Asthma J45.909 Active Problem Diabetes mellitus E11.9 Active Assessment Cough R05 Active Problem PVD (peripheral vascular disease) I73.9 Active Assessment Edema R60.9 Active Assessment HTN (hypertension) I10 Active Problem 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 Problem Joint pain of left hip on movement M25.552 Active Problem GERD (gastroesophageal reflux disease) K21.9 Active Problem Neuropathy G62.9 Active Problem Proteinuria R80.9 Active Assessment Insomnia G47.00 Active Assessment Asthma J45.909 Active Assessment Sinusitis J32.9 Active Assessment Environmental allergies Z91.09 Active Assessment Neuropathy G62.9 Active Assessment PVD (peripheral vascular disease) I73.9 Active Assessment Renal failure N19 Active Assessment Diabetes mellitus E11.9 Active Assessment Hypercholesterolemia E78.0 Active Assessment GERD (gastroesophageal reflux disease) K21.9 Active Problem Environmental allergies Z91.09 Active Medications Medication Code System Code Instructions Start Date End Date Status Dosage Hydrochlorothiazide [facility] [address]-12 50 MG Orally Once a day Mar 21, 2014 1 tablet by Oral route 1 time per day Promethazine-Codeine [facility] [address]-67 6.25-10 MG/5ML Orally every 6 hrs Apr 17, 2015 5 ml as needed Zanaflex [facility] [address]-68 4 MG Orally every 8 hrs September 19, 2014 1 tablet as needed Atenolol [facility] [address]-41 100 mg orally once July 01, 2014 1 tablet by Oral route 1 time per day Nasonex [facility] [address]-28 50 mcg/actuation Jun 03, 2014 1 sprays by Nasal route 2 times per day in each nostril Diclofenac Sodium [facility] 47881006670 50MG DR Orally Three times a day 1 tablet Azithromycin [facility] [address]-71 250 MG Orally Once a day Apr 17, 2015 Apr 22, 2015 2 tablets on the first day, then 1 tablet daily for 4 days Zofran ODT [facility] [address]-45 8 mg June 30, 2014 1 tablet by Oral route every 8 hours PRN nausea or vomiting Norvasc [facility] [address]-32 5 MG Orally 2 times a day May 02, 2014 1 tablet by Oral route 2 times per day Pen [place] [facility] [address]-54 31G X 6 MM 2 times a day Mar 15, 2015 as directed Levemir FlexTouch [facility] [address]-02 100 UNIT/ML Subcutaneous 2 times a day Mar 15, 2015 30 units in am and 34 units at hs Vytorin [facility] [address]-37 10-40 MG Orally Once a day 1 tablet amitriptyline [facility] 0 150 mg July 01, 2014 take 1 tablet (150 mg) by oral route once daily at bedtime Metformin HCl [facility] 79498187651 1000 MG Orally Twice a day 1 tablet with meals Levemir [facility] [address]-04 100 UNIT/ML Subcutaneous 2 times a day Jun 02, 2014 inject 25 unit in am and pm1 Injection by Subcutaneous route 2 times per day 30units AM, 34units at HS Promethazine HCl [facility] [address]-74 12.5 MG Orally every 6 hrs Apr 15, 2015 Apr 20, 2015 1 tablet as needed Percocet [facility] [address]-81 5-325 MG Orally every 6 hrs Jun 16, 2014 take 1 tablet by oral route every 6 hours as needed Flonase [facility] [address]-72 50 MCG/ACT Nasally Once a day Mar 15, 2015 1 spray in each nostril Gabapentin [facility] [address]-22 300 mg July 01, 2014 1 capsule by Oral route 3 times per day Procedures Procedure Coding System Code Date [facility] CPT-4 NOBLL Apr 17, 2015 [facility] VISIT ESTABLISHED PATIENT CPT-4 G0467 Apr 17, 2015 GLYCATED HEMOGLOBIN TEST CPT-4 97692 Apr 17, 2015 VENIPUNCT, ROUTINE* CPT-4 68971 Apr 17, 2015 Office Visit, Est Pt., Level 4 CPT-4 10364 Apr 17, 2015 Vital Signs Date/Time: Apr 17, 2015 Temperature 98.6 F Weight 132.5 lbs Height 63 in BMI 23.47 Index Blood Pressure Diastolic 78 mmHg Blood Pressure Systolic 118 mmHg Cardiac Monitoring Heart Rate 72 bpm Results Name Result Date Reference Range Unit Abnormality Flag CBC ----Lymphs 11 20150417 % ----Neutrophils 79 20150417 % ----Baso (Absolute) 0.0 12340315 0.0-0.2 x10E3/uL ----Hemoglobin 13.9 37851387 11.1-15.9 g/dL ----Eos (Absolute) 0.1 22123536 0.0-0.4 x10E3/uL ----Hematocrit 41.8 65004301 34.0-46.6 % ----Monocytes(Absolute) 0.6 74040225 0.1-0.9 x10E3/uL ----MCV 87 37166882 79-97 fL ----Lymphs (Absolute) 0.8 68147660 0.7-3.1 x10E3/uL ----MCH 29.0 09929157 26.6-33.0 pg ----Neutrophils (Absolute) 5.4 13321318 1.4-7.0 x10E3/uL ----MCHC 33.3 28520106 31.5-35.7 g/dL ----Immature Granulocytes 0 44674193 % ----Basos 0 61738012 % ----RDW 13.1 44454705 12.3-15.4 % ----Immature Grans (Abs) 0.0 02412263 0.0-0.1 x10E3/uL ----WBC 7.0 19454919 3.4-10.8 x10E3/uL ----Platelets 292 37959356 150-379 x10E3/uL ----Eos 2 85094732 % ----RBC 4.79 57219727 3.77-5.28 x10E6/uL ----Monocytes 8 11488208 % LIPID PANEL ----LDL Cholesterol Calc 45 36106350 0-99 mg/dL ----VLDL Cholesterol Dev 37 83878844 5-40 mg/dL ----Cholesterol, Total 122 20150417 100-199 mg/dL ----HDL Cholesterol 40 20150417 >39 mg/dL ----Triglycerides 186 62843812 0-149 mg/dL H A1C (IN HOUSE) ----A1C IN HOUSE 5.6% 20150417 4.30 - 5.6 % ----Previous A1c 5.4% 20150417 ----Lot # [id number] ----Exp date 20150417 ROUTINE VENIPUNCTURE CMP ----Potassium, Serum 3.8 20150417 3.5-5.2 mmol/L ----Sodium, Serum 139 20150417 134-144 mmol/L ----BUN/Creatinine Ratio 15 20150417 11-26 ----eGFR If Africn Am 101 46851111 >59 mL/min/1.73 ----eGFR If NonAfricn Am 88 02968832 >59 mL/min/1.73 ----Creatinine, Serum 0.72 20150417 0.57-1.00 mg/dL ----BUN 11 20150417 8-27 mg/dL ----Glucose, Serum 100 20150417 65-99 mg/dL H ----AST (SGOT) 23 20150417 0-40 IU/L ----Globulin, Total 2.0 15870876 1.5-4.5 g/dL ----ALT (SGPT) 28 20150417 0-32 IU/L ----A/G Ratio 2.2 20150417 1.1-2.5 ----Bilirubin, Total 0.3 20150417 0.0-1.2 mg/dL ----Alkaline Phosphatase, S 67 20150417 39-117 IU/L ----Carbon Dioxide, Total 30 20150417 18-29 mmol/L H ----Calcium, Serum 9.5 63383589 8.7-10.3 mg/dL ----Protein, Total, Serum 6.4 19714076 6.0-8.5 g/dL ----Albumin, Serum 4.4 20150417 3.6-4.8 g/dL ----Chloride, Serum 95 20150417 97-108 mmol/L L Summary Purpose eClinicalWorks Submission
--- OUTSIDE RECORDS SUMMARY | 2018-02-13 04:10 | XMS REPORT ---
Author Author NICHELLE VALENZUELA Organization [facility] Address [address] [place] [address] Care Team Providers Care Package Delivery Driver Name Role Phone VALENZUELAZULEIKANICHELLE Unavailable PROBLEMS Type Condition ICD9-CM Code DQM38-PE Code Onset Dates Condition Status SNOMED Code Problem PVD (peripheral vascular disease) I73.9 Active 747270412 Problem Insomnia G47.00 Active 737594928 Problem Diabetes mellitus E11.9 Active 56962228 Problem Encounter for dental examination Z01.20 Active 874175962 Problem Bronchitis J40 Active 48340227 Problem Asthma J45.909 Active 762463990 Problem GERD (gastroesophageal reflux disease) K21.9 Active 891761966 Problem Reactive depression F32.9 Active 11867084 Problem Secondary hypertension I15.9 Active 10068045 Problem Renal failure N19 Active 47509345 Problem Joint pain of left hip on movement M25.552 Active 658581912 Problem Hypercholesterolemia E78.00 Active 56414374 Problem Proteinuria R80.9 Active 25589306 Problem Environmental allergies Z91.09 Active 419242145 Problem Neuropathy G62.9 Active 097327883 ALLERGIES Substance Reaction Event Type Date Status Stadol Unknown Drug Allergy Jun, Active Glucotrol Unknown Drug Allergy Jun, Active SOCIAL HISTORY Never Assessed PLAN OF CARE Activity Details Follow Up 3 Months Reason:dm,htn,neruopathy, asthma VITAL SIGNS Height 63 in 2016-07-12 Weight 131.5 lbs 2016-07-12 Temperature 97.6 degrees Fahrenheit 2016-07-12 Heart Rate 68 bpm 2016-07-12 Respiratory Rate 18 2016-07-12 BMI 23.29 kg/m2 2016-07-12 Blood pressure systolic 108 mmHg 2016-07-12 Blood pressure diastolic 76 mmHg 2016-07-12 MEDICATIONS Medication Instructions Dosage Frequency Start Date End Date Duration Status Promethazine-Codeine 6.25-10 MG/5ML Orally every 6 hrs 5 ml as needed 6h 07 Feb, 2017 Active Percocet 5-325 MG Orally every 6 hrs 1 tablet as needed 6h 18 Feb, 2016 Active Levemir 100 UNIT/ML Subcutaneous 2 times a day inject 25 unit in am and pm 12h May, Active [place] 32G X 4 MM subcutaneously 2 times a day as directed 12h Feb Active Gabapentin 300 MG Orally 3 times a day 1 capsule by Oral route 3 times per day 8h Active amitriptyline 150 mg by oral route Once a day 1 tablet 24h Jun, Active Hydrochlorothiazide 50 mg 1 tablet Once a day Orally Active Celexa 20 mg Orally Once a day 1 tablet 24h Apr, Active Vytorin 10-40 MG Orally Once a day 1 tablet 24h Active Diclofenac Sodium 50MG DR Orally Three times a day 1 tablet 8h Active Atenolol 100 MG orally once 1 tablet by Oral route 1 time per day Jun Active Albuterol Sulfate 90 mcg/actuation 2 puffs by Inhalation route every 4-6 hours as neededPRNcough or wheezing August, Active Metformin HCl 1000MG Orally Twice a day 1 tablet with meals 12h Active ProAir HFA 108 (90 Base) MCG/ACT Inhalation every 4 hrs 2 puffs as needed 4h May, Active Flonase 50 MCG/ACT Nasally Once a day 1 spray in each nostril 24h Feb, Active Norvasc 5 mg Orally 2 times a day 1 tablet by Oral route 2 times per day 12h Active Mucinex 600 MG Orally every 12 hrs 1 tablet as needed 12h 10 May, 2016 Active RESULTS Name Result Date Reference Range A1C (IN HOUSE) 2016-07-12 A1C IN HOUSE 5.8 4.3 - 5.6 % Previous A1c 5.8 Lot [id number] Exp date 04/2018 MICROALBUMIN, URINE (IN HOUSE) 2016-07-12 MICROALBUMIN normal Lot # [id number] Exp date 06/2017 Clarity clear Color yellow ALB 10 CRE 10 A:C (IN HOUSE) <30 Control Control Lot # Exp date PROCEDURES Procedure Date Ordered Result Body Site GLYCATED HEMOGLOBIN TEST July 12, 2016 MICROALBUMIN, SEMIQUANT July 12, 2016 [facility] VISIT ESTABLISHED PATIENT July 12, 2016 IMMUNIZATIONS No Known Immunizations MEDICAL (GENERAL) [...]
--- OUTSIDE RECORDS SUMMARY | 2018-02-13 04:11 | XMS REPORT ---
Author Author VASQUEZ PAZ Organization [facility] Address [address] [place] [address] Care Team Providers Care Surfboard Maker Name Role Phone VASQUEZ PAZ Unavailable PROBLEMS Type Condition ICD9-CM Code QVA25-CC Code Onset Dates Condition Status SNOMED Code Problem Asthma J45.909 Active 566465656 Problem Reactive depression F32.9 Active 39349782 Problem Secondary hypertension I15.9 Active 08295076 Problem Open bite of left hand, initial encounter S61.452A Active 343739491 Problem Bitten by cat, initial encounter W55.01XA Active 313871557 Problem Moderate persistent asthma with exacerbation J45.41 Active 319243011 Problem Bronchitis J40 Active 82513705 Problem Simple chronic bronchitis J41.0 Active 86518612 Problem Recurrent major depressive disorder, in full remission F33.42 Active 728549299 Problem Renal failure N19 Active 12987742 Problem Joint pain of left hip on movement M25.552 Active 452013198 Problem Hypercholesterolemia E78.00 Active 63673159 Problem Environmental allergies Z91.09 Active 615085649 Problem PVD (peripheral vascular disease) I73.9 Active 664577503 Problem Diabetes mellitus E11.9 Active 19337264 Problem Proteinuria R80.9 Active 59785972 Problem Insomnia G47.00 Active 624788420 Problem Neuropathy G62.9 Active 986915566 Problem GERD (gastroesophageal reflux disease) K21.9 Active 971464040 ALLERGIES No Information ENCOUNTERS Encounter Location Date Diagnosis [facility] [address], [place] [address] Sep, Diabetes mellitus E11.9 and Medication management Z79.899 [facility] [address], [place] [address] Sep, [facility] [id number] [place] [address] 11901- 0198 August, Neuropathy G62.9 [facility] [address] [address] August, Open bite of left hand, initial encounter S61.452A ; Encounter for immunization Z23 and Bitten by cat, initial encounter W55.01XA [facility] [address] 12544- 9775 05 Jul, 2017 Environmental allergies Z91.09 [place] [address] 82857- 1209 15 Jun, 2017 [place] [address] 82480- 2728 14 Jun, 2017 Simple chronic bronchitis J41.0 ; PVD (peripheral vascular disease) I73.9 and Recurrent major depressive disorder, in full remission F33.42 [facility] [address] [id number] Jun, 2017 Dental examination Z01.20 [facility] [address] [address] Jun, Moderate persistent asthma with exacerbation J45.41 [place] [address] 83678- 1416 May, Neuropathy G62.9 and Diabetes mellitus E11.9 [place] [address] 78209- 5321 Apr, [facility] [address] 63[address] Apr, Cough R05 [place] [address] 09887- 9906 Feb, [facility] [address] 48299- 6437 Feb, [place] [address] 42643- 1394 Feb, Diabetes mellitus E11.9 ; Neuropathy G62.9 ; Joint pain of left hip on movement M25.552 and Encounter for immunization Z23 [facility] [address] 84655- 7231 Feb, [facility] [address] 39118- 3760 Feb, Diabetes mellitus E11.9 [facility] [address] 30456- 8971 Feb, [facility] [address] 99017- 7422 Jan, [place] [address] 96900- 3263 Jan, Secondary hypertension I15.[address] [address]63- 6084 Dec, Diabetes mellitus E11.9 [facility] [address] [id number] Nov, Encounter for dental examination Z01.20 [facility] [address] [address] Oct, Allergic contact dermatitis due to plants, except food L23.7 [facility] [address] [place] [id number] [place] [address] 34064- 9836 Oct, [place] [address] 50427- 7562 Oct, Diabetes mellitus E11.9 ; PVD (peripheral vascular disease) I73.9 ; Neuropathy G62.9 ; GERD (gastroesophageal reflux disease) K21.9 ; Insomnia G47.00 ; Environmental allergies Z91.09 ; Secondary hypertension I15.9 ; Reactive depression F32.9 ; Hypercholesterolemia E78.00 and Joint pain of left hip on movement M25.552 [facility] [address] 32794- 1066 Sep, Diabetes mellitus E11.9 [facility] [address] [id number] [place] [address] 54074- 7343 Sep, Diabetes mellitus E11.9 [facility] [id number] [place] [address] 00264- 1019 Sep, Diabetes mellitus E11.9 [facility] [id number] [place] [address] 99354- 7671 Sep, Neuropathy G62.9 [facility] [address] [id number] [place] [address] 34477- 8065 August, [facility] [address] 45689- 1241 Jul, [facility] [id number] [place] [address] 09117- 1563 Jun, [place] [address] 37291- 3117 Jun, Diabetes mellitus E11.9 ; PVD (peripheral vascular disease) I73.9 ; Neuropathy G62.9 ; Joint pain of left hip on movement M25.552 ; Renal failure N19 ; Asthma J45.909 ; Reactive depression F32.9 ; Pure hypercholesterolemia, unspecified E78.00 and Insomnia G47.00 [facility] [address] [id number] [place] [address] 90094- 1734 Jun, Joint pain of left hip on movement M25.552 and Diabetes mellitus E11.9 [facility] [id number] [place] [address] 88307- 0575 Jun, [facility] [address] [id number] [place] [address] 71892 -9140 May, Cough R05 and Bronchitis J40 [facility] [id number] [place] [address] 30805- 7460 May, [facility] [address] [place] [id number] [place] [address] 63348- 7912 May, [facility] [id number] [place] [address] 23779- 9460 May, Asthma J45.909 and Bronchitis J40 [facility] [id number] [place] [address] 28682- 5141 07 May, 2016 [facility] [address] 08363- 7934 May, Bronchitis J40 [facility] [address] [place] [id number] [place] [address] 74098- 4915 May, [facility] [address] 03493- 2497 Apr, Diabetes mellitus E11.9 ; PVD (peripheral vascular disease) I73.9 ; GERD (gastroesophageal reflux disease) K21.9 ; Asthma J45.909 ; Insomnia G47.00 ; Environmental allergies Z91.09 ; Secondary hypertension I15.9 ; Joint pain of left hip on movement M25.552 ; Hypercholesterolemia E78.0 and Reactive depression F32.9 [facility] [address] [id number] [place] [address] 78665- 2033 Mar, Diabetes mellitus E11.9 ; PVD (peripheral vascular disease) I73.9 and Hypercholesterolemia E78.0 [place] [address] [place] [id number] [place] [address] 50543- 5646 Mar, Diabetes mellitus E11.9 and Hypercholesterolemia E78.0 [facility] [address] [id number] [place] [address] 50480- 8521 Mar, [facility] [id number] [place] [address] 15963- 5326 Feb, [facility] [address] 35530- 7137 Feb, [facility] [id number] [place] [address] 97887- 5562 Feb, [facility] [address] [place] [address]- 1855 31 Jan, 2016 Encounter for immunization Z23 [place] [address] 29116- 8612 Jan, [facility] [address] 91254- 3713 Dec, [place] [address] 00252- 1408 Dec, Diabetes mellitus E11.9 ; PVD (peripheral vascular disease) I73.9 ; GERD (gastroesophageal reflux disease) K21.9 ; Insomnia G47.00 ; Joint pain of left hip on movement M25.552 ; Asthma J45.909 ; Environmental allergies Z91.09 ; Hypercholesterolemia E78.0 ; Essential hypertension I10 and Neuropathy G62.9 [place] [address] [id number] [place] [address] 59712- 7431 Nov, [place] [address] 54469- 5949 Nov, [place] [address] 32661- 1340 Oct, PVD (peripheral vascular disease) I73.9 and Diabetes mellitus E11.9 [place] [address] [place] [id number] [place] [address] 47942- 8896 Sep, Diabetes mellitus E11.9 ; PVD (peripheral vascular disease) I73.9 ; Neuropathy G62.9 ; Joint pain of left hip on movement M25.552 ; GERD ( gastroesophageal reflux disease) K21.9 ; Asthma J45.909 ; Insomnia G47.00 ; Secondary hypertension I15.9 and Hypercholesteremia E78.0 [place] [address] 95974- 4453 August, [place] [address] [place] [id number] [place] [address] 13411- 0324 August, Neuropathy G62.9 [place] [address] [place] [id number] [place] [address]- 7089 August, Neuropathy G62.9 [facility] [address] 49560- 2434 Jun, Diabetes mellitus E11.9 ; Joint pain of left hip on movement M25.552 ; PVD (peripheral vascular disease) I73.9 ; Neuropathy G62.9 ; GERD (gastroesophageal reflux disease) K21.9 ; Asthma J45.909 ; Insomnia G47.00 ; Environmental allergies Z91.09 ; HTN (hypertension) I10 and Hypercholesteremia E78.0 [facility] [address] 06124- 5137 Jun, [facility] [address] 08996- 2338 Jun, [facility] [address] 74026- 4720 Jun, [facility] [address] 10357- 7643 Apr, [facility] [address] 33693- 7729 Apr, [facility] [address] [id number] [place] [address] 86641- 6512 Apr, Sinusitis J32.9 [facility] [address] 13004- 0118 Apr, Neuropathy G62.9 [facility] [id number] [place] [address] 67970- 6253 Mar, [facility] [address] 32648- 7321 Mar, [facility] [address] [place] [id number] [place] [address] 38175- 6533 Mar, Diabetes mellitus E11.9 ; PVD (peripheral vascular disease) I73.9 ; Neuropathy G62.9 ; GERD (gastroesophageal reflux disease) K21.9 ; Renal failure N19 ; Asthma J45.909 ; Insomnia G47.00 ; Environmental allergies Z91.09 ; Sinusitis J32.9 ; Cough R05 ; Edema R60.9 ; HTN (hypertension) I10 and Hypercholesterolemia E78.0 [facility] [id number] [place] [address] 19968 -8146 Mar, Dysuria R30.0 ; Vomiting, unspecified R11.10 ; Benign essential hypertension I10 and Dizziness R42 [facility] [address] 37156- 8980 Mar, [facility] [address] 50523- 5388 Mar, [facility] [address] 26538- 5404 Feb, [facility] [address] 97963- 6669 Feb, [facility] [address] [place] [id number] [place] [address] 51684- 5615 Feb, [facility] [address] 30456- 9066 Feb, [facility] [address] [place] [id number] [place] [address] 45790- 2989 Feb, Joint pain of left hip on movement M25.552 ; Lumbago M54.5 and UTI (urinary tract infection) N39.0 [facility] [address] [id number] [place] [address] 36661- 9728 Feb, [facility] [address] 70995- 4153 Feb, [facility] [address] [place] [id number] [place] [address] 38754- 4000 Jan, [facility] [address] 28065- 3969 Jan, [facility] [address], [place] [address]- 7797 Jan, [facility] [id number] [place] [address] 35379- 3581 Jan, [facility] [address] [id number] [place] [address] 64400- 2748 Jan, 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 [facility] [id number] [place] [address] 32633- 4395 Dec, Hypertension 401.9 and Diabetes 250.00 [facility] [address] [place] [id number] [place] [address] 59553- 2557 Dec, Diabetes 250.00 ; Influenza vaccine administered V04.81 ; Unspecified peripheral vascular disease 443.9 ; Issue of repeat prescriptions V68.1 ; Unspecified hereditary and idiopathic peripheral neuropathy 356.9 ; Insomnia, unspecified 780.52 ; Hypercholesteremia 272.0 ; Pain in joint, site unspecified 719.40 ; Dizziness 780.4 and PCV-13 (PREVNAR) DX V03.82 [facility] [address] [place] [address] 29217- 3217 Dec, [facility] [id number] [place] [address] 91333- 2177 Dec, [facility] [address], [place] [address]- 0980 Dec, [facility] [address] [place] [id number] [place] [address] 54208- 0605 Dec, [facility] [id number] [place] [address] 12543- 3578 Dec, [facility] [id number] [place] [address] 20383- 5327 Dec, [facility] [address] [place] [address] 06488- 6357 Nov, [facility] [id number] [address]- 3973 Nov, Environmental allergies V15.09 ; Sacroiliitis, not elsewhere classified 720.2 and Cough 786.2 [place] [address] [place] [id number] [place] [address] 73998- 7449 Oct, [place] [address] [place] [id number] [place] [address] 09598- 7520 Oct, [place] [address] 57209- 3439 Oct, [place] [address] [place] [id number] [place] [address] 11964- 4446 Sep, [place] [address] [place] [id number] [place] [address] 62976- 9422 Sep, [place] [id number] [place] [address] 49710- 6556 Sep, Dysuria 788.1 and Diabetes with other specified manifestations, type II or unspecified type, not stated as uncontrolled 250.[address] [place] [id number] [place] [address] 81285- 9970 Sep, [place] [id number] [place] [address] 95738- 8191 Sep, Diabetes with other specified manifestations, type II or unspecified type, not stated as uncontrolled 250.[address] [place] [id number] [place] [address] 42775- 4037 Sep, DM w/o complication type II 250.00 ; Unspecified peripheral vascular disease 443.9 ; Pain in joint, pelvic region and thigh 719.45 ; Asthma , unspecified, unspecified status 493.90 ; Hypercholesteremia 272.0 ; Fatigue 780.79 ; UTI (lower urinary tract infection) 599.0 and Essential hypertension 401.9 [place] [id number] [place] [address] 26659- 3733 Sep, [place] [address] [address]- 6765 Sep, [facility] [address], [place] [address]- 6606 Sep, [facility] [address], [place] [address]- 7796 August, [facility] [address], [place] [address]- 0983 August, [facility] [address] 4052 August, Diabetes with other specified manifestations, type II or unspecified type, not stated as uncontrolled 250.80 [facility] [address], [place] [address]- 4501 Jul, Peripheral vascular disease 443.9 [facility] [address], [place] [address]- 6215 Jul, [facility] [address], [place] [address]- 4098 Jul, [facility] [address], [place] [address]- 1949 Jun, [facility] [address], [place] [address]- 0755 Jun, [facility] [address], [place] [address]- 6788 14 Jun, 2014 [facility] [id number] [address]- 5804 Jun, [facility] [id number]- 1745 Jun, [facility] [address]- 3275 Jun, [facility] [id number]- 8887 Jun, [facility] [place] [facility] [address] [id number] [place] [address]- 4273 Jun, 2014 [facility] [place] [facility] [address] [id number] [place] [address]- 2064 Jun, 2014 [facility] [place] [facility] [address] [id number] [place] [address]- 7213 May, 2014 [facility] [place] [facility] [address] [id number] [place] [address]- 0210 May, 2014 [facility] [place] [facility] [address] [id number] [place] [address]- 5315 24 May, 2014 [facility] [place] [facility] [address] [id number] [place] [address]- 5534 May, 2014 [facility] [place] [facility] [address] [facility] [id number] [place] [address]- 4214 May, 2014 [facility] [place] [facility] [address] [facility] [id number] [place] [address]- 6741 May, 2014 [facility] [place] [facility] [address] [id number] [place] [address]- 8319 May, 2014 [facility] [place] [facility] [address] [facility] [id number] [place] [address]- 4263 May, 2014 [facility] [place] [facility] [address] [facility] [id number] [place] [address]- 4127 May, 2014 [facility] [place] [facility] [address] [facility] [id number] [place] [address]- 3629 May, 2014 [facility] [place] [facility] [address] [facility] [id number] [place] [address]- 2420 May, 2014 [facility] [place] [facility] [address] [id number] [place] [address]- 2555 May, 2014 [facility] [place] [facility] [address] [facility] [id number] [place] [address]- 3817 May, 2014 [facility] [place] [facility] [address] [facility] [id number] [place] [address]- 0013 Apr, [facility] [address] [id number] [place] [address]- 3547 Apr, [facility] [place] [facility] [address] [id number] [place] [address]- 5309 Apr, [facility] [place] [facility] [address] [id number] [place] [address]- 5935 Apr, [facility] [place] [facility] [address] [id number] [place] [address]- 8856 Apr, [facility] [address] [id number] [place] [address]- 6706 Apr, [facility] [place] [facility] [address] [id number] [place] [address]- 0536 Apr, [facility] [address] [id number] [place] [address]- 5619 Apr, [facility] [address] [id number] [place] [address]- 5807 Mar, [facility] [place] [facility] [address] [id number] [place] [address]- 9993 Mar, [facility] [address] [id number] [place] [address]- 4259 Mar, [facility] [place] [facility] [address] [id number] [place] [address]- 9281 Mar, [facility] [place] [facility] [address] [id number] [place] [address]- 0981 Mar, [facility] [place] [facility] [address] [id number] [place] [address]- 8011 Mar, [facility] [place] [facility] [address] [id number] [place] [address]- 0574 Mar, [facility] [place] [facility] [address] [id number] [place] [address]- 6049 Mar, [facility] [place] [facility] [address] [id number] [place] [address]- 0308 Mar, [facility] [place] [facility] [address] [id number] [place] 2574 Mar, [facility] [place] [facility] [address] [id number] [place] [address]- 7433 Mar, [facility] [place] [facility] [address] [id number] [place] [address]- 1825 Mar, [facility] [place] [facility] [address] [id number] [place] 3330 Mar, [facility] [place] [facility] [address] [id number] [place] [address]- 2374 Mar, [facility] [place] [facility] [address] [id number] [place] [address]- 9610 Feb, [facility] [place] [facility] [address] [id number] [place] [address]- 6774 Feb, [facility] [place] [facility] [address] [id number] [place] [address]- 4174 Feb, [facility] [place] [facility] [address] [id number] [place] [address]- 2427 Feb, [facility] [place] [facility] [address] [id number] [place] [address]- 4349 Feb, [facility] [place] [facility] [address] [id number] [place] [address]- 2486 Feb, [facility] [place] [facility] [address] [id number] [place] [address]- 6423 Feb, [facility] [place] [facility] [address] [id number] [place] [address]- 6561 Feb, [facility] [place] [facility] [address] [id number] [place] [address]- 9416 Feb, [facility] [place] [facility] [address] [id number], [place] [address]- 9039 Feb, [facility] [place] [facility] [address] [id number] [place] [address]- 5912 Feb, [facility] [place] [facility] [address] [id number] [place] [address]- 0945 Feb, [facility] [place] [facility] [address] [id number] [place] [address]- 4830 Feb, [facility] [place] [facility] [address] [id number] [place] [address]- 6069 Feb, [facility] [place] [facility] [address] [id number] [place] [address]- 8486 Feb, [facility] [place] [facility] [address] [id number] [place] [address]- 0115 Feb, [facility] [place] [facility] [address] [id number] [place] [address]- 9749 Jan, [facility] [place] [facility] [address] [id number] [place] [address]- 1424 Jan, [facility] [place] [facility] [address] [id number] [place] [address]- 1641 Jan, [facility] [place] [facility] [address] [id number] [place] [address]- 2302 Jan, [facility] [place] [facility] [address] [id number], [place] [address]- [address] Jan, [facility] [place] [facility] [address] [id number], [place] [address] Jan, [facility] [place] [facility] [address] [id number] [place] [address] Jan, [facility] [place] [facility] [address] [id number] [place] [address]- [address] Jan, [facility] [place] [facility] [address] [id number] [place] [address] Dec, [facility] [place] [facility] [address] [id number] [place] [address] Dec, [facility] [place] [facility] [address] [id number] [place] [address] Nov, [facility] [place] [facility] [address] [id number] [place] [address] Nov, [facility] [place] [facility] [address] [id number] [place] [address] Nov, [facility] [place] [facility] [address] [id number] [place] [address] Nov, [facility] [place] [facility] [address] [id number] [place] [address] Nov, [facility] [place] [facility] [address] [id number] [place] [address] Nov, [facility] [place] [facility] [address] [id number] [place] [address] Oct, [facility] [place] [facility] [address] [id number] [place] [address] Oct, [facility] [place] [facility] [address] [id number] [place] [address] Oct, [facility] [place] [facility] [address] [id number] [place] [address] Oct, [facility] [place] [facility] [address] [id number] [place] [address] Sep, [facility] [place] [facility] [address] [id number] [place] [address] Sep, [facility] [place] [facility] [address] [id number] [place] [address] Sep, [facility] [place] [facility] [address] [id number] [place] [address]- [address] Sep, [facility] [place] [facility] [address] [id number] [place] [address] Sep, [facility] [place] [facility] [address] [id number] [place] [address] Sep, [facility] [place] [facility] [address] [id number] [place] [address] August, [facility] [place] [facility] [address] [id number] [place] [address] August, [facility] [place] [facility] [address] [id number] [place] [address] 4[address] August, [facility] [place] [facility] [address] [id number] [place] [address]- 4521 August, [facility] [place] [facility] [address] [id number] [place] [address]- 5[address] August, [facility] [place] [facility] [address] [id number] [place] [address]- 69[address] August, [facility] [place] [facility] [address] [id number] [place] [address]- 6140 August, [facility] [place] [facility] [address] [id number] [place] [address]- 7991 August, [facility] [place] [facility] [address] [id number] [place] [address]- 8422 August, [facility] [place] [facility] [address] [id number] [place] [address]- 5794 August, [facility] [place] [facility] [address] [id number] [place] [address]- 0102 August, [facility] [place] [facility] [address] [id number] [place] [address]- 6265 August, [facility] [place] [facility] [address] [id number] [place] [address]- 7890 Jul, [facility] [place] [facility] [address] [id number] [place] [address]- 0[address] Jul, [facility] [place] [facility] [address] [id number] [place] [address]- 7150 Jul, [facility] [place] [facility] [address] [id number] [place] [address]- 2526 18 Jul, 2013 [facility] [place] [facility] [address] [id number] [place] [address]- 2059 Jul, [facility] [place] [facility] [address] [id number] [place] [address]- 6711 Jul, [facility] [place] [facility] [address] [id number] [place] [address]- 9364 Jul, [facility] [place] [facility] [address] [id number] [place] [address]- 2954 Jul, [facility] [place] [facility] [address] [id number] [place] [address]- 1175 Jul, [facility] [place] [facility] [address] [id number] [place] [address]- 6238 Jul, [facility] [place] [facility] [address] [id number] [place] [address]- 2377 Jul, [facility] [place] [facility] [address] [id number] [place] [address]- 9572 Jun, [facility] [place] [facility] [address] [id number] [place] [address]- 0406 Jun, [facility] [place] [facility] [address] [id number] [place] [address]- 1720 Jun, [facility] [place] [facility] [address] [id number] [place] [address]- 6960 28 Jun, 2013 [facility] [place] [facility] [address] [id number] [place] [address]- 4475 Jun, [facility] [place] [facility] [address] [id number] [place] [address]- 8022 21 Jun, 2013 [facility] [place] [facility] [address] [id number] [place] [address]- 4035 13 Jun, 2013 [facility] [place] [facility] [address] [id number] [place] [address]- 0842 Jun, [facility] [place] [facility] [address] [id number] [place] [address]- 8059 Jun, [facility] [place] [facility] [address] [id number] [place] [address]- 7356 May, [facility] [place] [facility] [address] [id number] [place] [address]- 6740 May, [facility] [place] [facility] [address] [id number] [place] [address]- 0693 May, [facility] [place] [facility] [address] [id number] [place] [address]- 0207 Apr, [facility] [place] [facility] [address] [id number] [place] [address]- 7366 Apr, [facility] [place] [facility] [address] [id number] [place] [address]- 5468 Apr, [facility] [place] [facility] [address] [id number] [place] [address]- 3169 Apr, [facility] [place] [facility] [address] [id number] [place] [address]- 5932 Apr, [facility] [place] [facility] [address] [id number] [place] [address]- 7907 Apr, [facility] [place] [facility] [address] [id number] [place] [address]- 0470 Apr, [facility] [place] [facility] [address] [id number] [place] [address]- 4148 Apr, [facility] [place] [facility] [address] [id number] [place] [address]- 0600 Mar, [facility] [place] [facility] [address] [id number] [place] [address]- 8726 Mar, [facility] [place] [facility] [address] [id number] [place] [address]- 1146 Feb, [facility] [place] [facility] [address] [id number] [place] [address]- 5619 Feb, [facility] [place] [facility] [address] [id number] [place] [address]- 8960 Jan, [facility] [place] [facility] [address] [id number] [place] [address]- 6962 Jan, [facility] [place] [facility] [address] [id number] [place] [address]- 1036 Jan, [facility] [place] [facility] [address] [id number] [place] [address]- 1957 Jan, [facility] [place] [facility] [address] [id number] [place] [address]- 8081 Jan, [facility] [place] [facility] [address] [id number] [place] [address]- 5839 Jan, [facility] [place] [facility] [address] [id number] [place] [address]- 5495 Jan, [facility] [place] [facility] [address] [id number] [place] [address]- 8246 Jan, [facility] [place] [facility] [address] [id number] [place] [address]- 6574 Jan, [facility] [place] [facility] [address] [id number], [place] [address]- 1010 17 Jan, 2013 [facility] [place] [facility] [address] [id number], [place] [address]- 8[address] 14 Jan, 2013 [facility] [place] [facility] [address] [id number] [place] [address]- 8667 14 Jan, 2013 [facility] [place] [facility] [address] [id number], [place] [address]- 5656 10 Jan, 2013 [facility] [place] [facility] [address] [id number] [place] [address]- 9493 10 Jan, 2012 [facility] [place] [facility] [address] [id number] [place] [address]- 0579 10 Jan, 2012 [facility] [address] [id number] [place] [address]- 9368 Jan, 2012 [facility] [place] [facility] [address] [id number] [place] [address]- 2546 Jan, 2012 [facility] [address] [id number] [place] [address]- 5518 Jan, 2012 [facility] [place] [facility] [address] [id number] [place] [address]- 2548 08 Jan, 2012 [facility] [address] [id number] [place] [address]- 3134 Jan, 2012 [facility] [place] [facility] [address] [id number] [place] [address]- 4245 Jan, 2012 [facility] [place] [facility] [address] [id number] [place] [address]- 7030 Jan, 2012 [facility] [address] [id number] [place] [address]- 3142 Jan, [facility] [place] [facility] [address] [id number] [place] [address]- 4557 Dec, [facility] [place] [facility] [address] [id number] [place] [address]- 2543 16 Dec, 2012 [facility] [place] [facility] [address] [id number] [place] [address]- 2541 Nov, [facility] [place] [facility] [address] [id number] [place] [address]- 2546 Oct, [facility] [place] [facility] [address] [id number] [place] [address]- 2546 Oct, [facility] [place] [facility] [address] [id number] [place] [address]- 2546 Oct, [facility] [place] [facility] [address] [id number] [place] [address]- 9106 Oct, [facility] [address] [id number] [place] [address]- 8606 Oct, [facility] [place] [facility] [address] [id number] [place] [address]- 5987 Oct, [facility] [place] [facility] [address] [id number] [place] [address]- 5058 Sep, [facility] [place] [facility] [address] [id number] [place] [address]- 7304 Sep, [facility] [address] [id number] [place] [address]- 4144 Sep, [facility] [place] [facility] [address] [id number] [place] [address]- 2666 Jul, [facility] [place] [facility] [address] [id number] [place] [address]- 3244 Jul, [facility] [place] [facility] [address] [id number] [place] [address]- 9369 Jul, [facility] [place] [facility] [address] [id number] [place] [address]- 1696 Jun, [facility] [place] [facility] [address] [id number] [place] [address]- 4530 Jun, [facility] [place] [facility] [address] [id number] [place] [address]- 2115 Jun, [facility] [place] [facility] [address] [id number], [place] [address]- 0278 Jun, [facility] [place] [facility] [address] [id number] [place] [address]- 9281 Jun, [facility] [place] [facility] [address] [id number] [place] [address]- 1666 Jun, [facility] [place] [facility] [address] [id number] [place] [address]- 5393 May, [facility] [place] [facility] [address] [id number] [place] [address]- 2541 May, [facility] [address] [id number] [place] [address]- 9823 Apr, [facility] [address] [id number] [place] [address]- 8006 Apr, [facility] [address] [id number] [place] [address]- 2806 Apr, [facility] [address] [id number] [place] [address]- 2348 Apr, [facility] [address] [id number] [place] [address]- 4877 Apr, [facility] [address] [id number] [place] [address]- 4962 Mar, [facility] [address] [id number] [place] [address]- 0991 Mar, [facility] [address] [id number] [place] [address]- 4319 Mar, [facility] [address] [id number] [place] [address]- 6366 Mar, [facility] [address] [id number] [place] [address]- 6082 14 Mar, 2012 [facility] [address] [id number] [place] [address]- 9317 14 Mar, 2012 [facility] [place] [facility] [address] [id number] [place] [address]- 2543 10 Mar, 2012 [facility] [place] [facility] [address] [id number] [place] [address]- 0416 Mar, [facility] [place] [facility] [address] [id number] [place] 6836 05 Mar, 2012 [facility] [address] [id number] [place] [address]- 8881 05 Mar, 2012 [facility] [place] [facility] [address] [id number] [place] [address]- 2247 Feb, [facility] [place] [facility] [address] [id number] [place] [address]- 8419 Feb, [facility] [place] [facility] [address] [id number] [place] [address]- 6925 Feb, [facility] [place] [facility] [id number] [place] [address], [place] [address]- 6817 Feb, [facility] [place] [facility] [address] [id number] [place] [address]- 9278 Feb, [facility] [place] [facility] [address] [id number] [place] [address]- 9728 Feb, [facility] [place] [facility] [address] [id number] [place] [address]- 2004 Feb, [facility] [place] [facility] [address] [id number] [place] [address]- 7682 Feb, [facility] [place] [facility] [address] [id number] [place] [address]- 1249 Feb, [facility] [place] [facility] [address] [id number] [place] [address]- 0496 Feb, [facility] [place] [facility] [address] [facility] [id number] [place] [address]- 7720 Jan, [facility] [place] [facility] [address] [id number] [place] [address]- 4720 Jan, [facility] [place] [facility] [address] [id number] [place] [address]- 3769 Jan, [facility] [place] [facility] [address] [id number] [place] [address]- 4504 Jan, [facility] [place] [facility] [address] [id number] [place] [address]- 5235 Dec, [facility] [place] [facility] [address] [id number] [place] [address]- 1927 25 Sep, 2011 [facility] [place] [facility] [address] [id number] [place] [address]- 3036 18 Sep, 2011 [facility] [place] [facility] [address] [id number] [place] [address]- 7076 18 Dec, 2011 [facility] [place] [facility] [address] [id number] [place] [address]- 3226 17 Sep, 2011 [facility] [place] [facility] [address] [id number] [place] [address]- 5766 14 Sep, 2011 [facility] [place] [facility] [address] [id number] [place] [address]- 0906 13 Dec, 2011 [facility] [place] [facility] [address] [id number] [place] [address]- 1099 13 Dec, 2011 [facility] [place] [facility] [address] [id number] [place] [address]- 9579 06 Dec, 2011 [facility] [place] [facility] [address] [id number] [place] [address]- 7075 31 Nov, 2011 [facility] [place] [facility] [address] [id number] [place] [address]- 9713 30 Nov, 2011 [facility] [place] [facility] [address] [id number] [place] [address]- 1567 Nov, [facility] [place] [facility] [address] [id number] [place] [address]- 2607 Nov, [facility] [place] [facility] [address] [id number], [place] [address]- 0595 Sep, [facility] [place] [facility] [address] [id number] [place] [address]- 1208 Sep, [facility] [place] [facility] [address] [id number] [place] [address]- 2532 Sep, [facility] [place] [facility] [address] [id number] [place] [address]- 4649 August, [facility] [place] [facility] [address] [id number] [place] [address]- 0717 August, [facility] [address] [id number] [place] [address]- 8959 August, [facility] [address] [id number] [place] [address]350 August, [facility] [address] [id number] [place] [address]- 0966 August, [facility] [address] [id number] [place] [address]- 9459 August, [facility] [address] [id number] [place] [address]- 9910 August, [facility] [address] [id number] [place] [address]- 3993 August, [facility] [address] [id number] [place] [address]- 0600 August, [facility] [address] [id number] [place] [address]- 9048 Jul, [facility] [address] [id number] [place] [address]- 8364 Jun, [facility] [place] [facility] [address] [id number] [place] [address]- 8878 Jun, [facility] [address] [id number] [place] [address]- 5806 08 Jun, 2011 [facility] [address] [id number] [place] [address]- 1414 Jun, [facility] [address] [id number] [place] [address]- 1582 05 Jun, 2011 [facility] [address] [id number] [place] [address]- 3166 04 Jun, 2011 [facility] [address] [id number] [place] [address]- 2086 Jun, [facility] [address] [id number] [place] [address]- 7113 Jun, [facility] [place] [facility] [address] [id number] [place] [address]- 8376 27 May, 2011 [facility] [place] [facility] [address] [id number] [place] [address]- 1036 21 May, 2011 [facility] [place] [facility] [address] [id number] [place] [address]- 9946 20 May, 2011 [facility] [place] [facility] [address] [id number] [place] [address]- 9249 19 May, 2011 [facility] [place] [facility] [address] [id number] [place] [address]- 0226 17 May, 2011 [facility] [place] [facility] [address] [id number] [place] [address]- 6176 16 May, 2011 [facility] [place] [facility] [address] [id number] [place] [address]- 2115 14 May, 2011 [facility] [place] [facility] [address] [id number] [place] [address]- 9956 Apr, [facility] [place] [facility] [address] [id number] [place] [address]- 8225 16 Apr, 2011 [facility] [place] [facility] [address] [id number] [place] [address]- 9861 13 Apr, 2011 [facility] [place] [facility] [address] [id number] [place] [address]- 1180 Apr, [facility] [place] [facility] [address] [id number] [place] [address]- 4723 10 Apr, 2011 [facility] [place] [facility] [address] [id number] [place] [address]- 5914 09 Apr, 2011 [facility] [place] [facility] [address] [id number] [place] [address]- 5416 05 Apr, 2011 [facility] [place] [facility] [address] [id number] [place] [address]- 0606 Apr, [facility] [address] [id number] [place] [address]- 4213 29 Mar, 2011 [facility] [place] [facility] [address] [id number] [place] [address]- 2195 20 Mar, 2011 [facility] [place] [facility] [address] [id number] [place] [address]- 6144 28 Feb, 2011 [facility] [place] [facility] [address] [id number] [place] [address]- 2098 17 Feb, 2011 [facility] [place] [facility] [address] [id number] [place] 6708 17 Feb, 2011 [facility] [place] [facility] [address] [id number] [place] [address]- 7359 16 Feb, 2011 [facility] [place] [facility] [address] [id number] [place] [address]- 3985 16 Feb, 2011 [facility] [place] [facility] [address] [id number] [place] [address]- 6175 24 Jan, 2011 [facility] [place] [facility] [address] [id number] [place] [address]- 8119 Nov, [facility] [place] [facility] [address] [id number] [place] [address]- 4121 14 Sep, 2010 [facility] [place] [facility] [address] [id number] [place] [address]- 8088 August, [facility] [place] [facility] [address] [id number] [place] [address]- 2011 Jun, [facility] [place] [facility] [address] [id number] [place] [address]- 3322 14 May, 2010 [facility] [place] [facility] [address] [id number] [place] [address]- 8678 Apr, [facility] [place] [facility] [address] [id number] [place] [address]- 5968 Mar, [facility] [address] [facility] [id number], [place] [address]- 2540 Mar, [facility] [address] [facility] [id number][place]- [address] Mar, [facility] [address] [facility] [id number], [place] [address]- 2906 Feb, [facility] [address] [facility] [id number], [place] [address]- 7059 Feb, [facility] [address] [facility] [id number] 7201 Jan, [facility] [address] [facility] [id number], [place] [address] Jan, [facility] [address] [id number], [place] [address] Jan, [facility] [address] [id number], [place] [address] Oct, [facility] [address] [id number], [place] [address] Oct, [facility] [address] [id number], [place] [address] Apr, [facility] [address] [id number], [place] [address] Mar, [facility] [address] [id number], [place] [address] Mar, [facility] [address] [id number], [place] [address] Jan, [facility] [address] [id number], [place] [address] Dec, IMMUNIZATIONS No Known Immunizations SOCIAL HISTORY [...]
--- OUTSIDE RECORDS SUMMARY | 2018-02-13 04:12 | XMS REPORT ---
Author NICHELLE Moreno [facility] eClinicalWorks Address Unknown Phone Unavailable Care Team Providers Care Blackjack Dealer Name Role Phone NICHELLE VALENZUELA Unavailable Allergies, Adverse Reactions, Alerts Substance Reaction Event Type Stadol Info Not Available Drug Allergy Penicillin V Potassium Info Not Available Drug Allergy Problems Problem Type Condition Code Onset Dates Condition Status Problem Environmental allergies Z91.09 Active Problem Asthma J45.909 Active Problem Insomnia G47.00 Active Assessment Diabetes 250.00 Active Assessment Hypertension 401.9 Active Problem PVD (peripheral vascular disease) I73.9 Active Problem Neuropathy G62.9 Active Problem Diabetes mellitus E11.9 Active Problem GERD (gastroesophageal reflux disease) K21.9 Active Problem Renal failure N19 Active Problem Proteinuria R80.9 Active Problem Joint pain of left hip on movement M25.552 Active Medications Medication Code System Code Instructions Start Date End Date Status Dosage Levemir [facility] [address]-49 100 UNIT/ML Subcutaneous 2 times a day Jun 02, 2014 inject 25 unit in am and pm1 Injection by Subcutaneous route 2 times per day 30units AM, 34units at HS amitriptyline [facility] 0 150 mg July 01, 2014 take 1 tablet (150 mg) by oral route once daily at bedtime Gabapentin [facility] [address]-10 300 mg July 01, 2014 1 capsule by Oral route 3 times per day Norvasc [facility] [address]-47 5 MG Orally 2 times a day May 02, 2014 1 tablet by Oral route 2 times per day Percocet [facility] [address]-90 5-325 MG Orally every 6 hrs Jun 16, 2014 take 1 tablet by oral route every 6 hours as needed Nasonex [facility] [address]-70 50 mcg/actuation Jun 03, 2014 1 sprays by Nasal route 2 times per day in each nostril Hydrochlorothiazide [facility] [address]-59 50 mg Mar 21, 2014 1 tablet by Oral route 1 time per day Zanaflex [facility] [address]-61 4 MG Orally every 8 hrs September 19, 2014 1 tablet as needed Metformin HCl [facility] [address]-59 1000 MG Orally Twice a day Dec 27, 2014 1 tablet with meals metformin [facility] [address]-24 1,000 mg November 18, 2013 1 tablet by Oral route 2 times per day [place] [facility] [address]-18 100 MG Orally Three times a day Nov 23, 2014 Jan 22, 2015 1 capsule as needed Vytorin [facility] [address]-57 10-40 MG Orally Once a day 1 tablet Procedures Procedure Coding System Code Date Office Visit, Est Pt., Level 4 CPT-4 52242 Jan 18, 2015 [facility] VISIT ESTABLISHED PATIENT CPT-4 G0467 Jan 18, 2015 Vital Signs Date/Time: Jan 18, 2015 Temperature 97.2 F Weight 132.8 lbs Height 63 in BMI 23.52 Index Blood Pressure Diastolic 88 mmHg Blood Pressure Systolic 162 mmHg Cardiac Monitoring Heart Rate 88 bpm Results No Known Results Summary Purpose eClinicalWorks Submission
--- OUTSIDE RECORDS SUMMARY | 2018-02-13 04:12 | XMS REPORT ---
Author Author NICHELLE VALENZUELA [facility] eClinicalWorks Address Unknown Phone Unavailable Care Team Providers Care Topstitcher Zigzag Name Role Phone NICHELLE VALENZUELA Unavailable Allergies, Adverse Reactions, Alerts Substance Reaction Event Type Stadol Info Not Available Drug Allergy Glucotrol Info Not Available Drug Allergy Problems Problem Type Condition Code Onset Dates Condition Status Problem Insomnia G47.00 Active Problem Renal failure N19 Active Problem Asthma J45.909 Active Assessment Sinusitis J32.9 Active Problem Environmental allergies Z91.09 Active Problem Diabetes mellitus E11.9 Active Problem PVD (peripheral vascular disease) I73.9 Active Problem 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 Problem Joint pain of left hip on movement M25.552 Active Problem GERD (gastroesophageal reflux disease) K21.9 Active Problem Neuropathy G62.9 Active Problem Proteinuria R80.9 Active Medications Medication Code System Code Instructions Start Date End Date Status Dosage Norvasc [facility] [address]-67 5 MG Orally 2 times a day May 02, 2014 1 tablet by Oral route 2 times per day Percocet [facility] [address]-15 5-325 MG Orally every 6 hrs Jun 16, 2014 take 1 tablet by oral route every 6 hours as needed Zanaflex [facility] [address]-32 4 MG Orally every 8 hrs September 19, 2014 1 tablet as needed Flonase [facility] [address]-13 50 MCG/ACT Nasally Once a day Mar 15, 2015 1 spray in each nostril Gabapentin [facility] [address]-13 300 mg July 01, 2014 1 capsule by Oral route 3 times per day Metformin HCl [facility] 14013286970 1000 MG Orally Twice a day 1 tablet with meals Zofran ODT [facility] [address]-41 8 mg June 30, 2014 1 tablet by Oral route every 8 hours PRN nausea or vomiting amitriptyline [facility] 0 150 mg July 01, 2014 take 1 tablet (150 mg) by oral route once daily at bedtime Amoxicillin [facility] [address]-52 875 MG Orally Twice a day May 01, 2015 May 11, 2015 1 tablet Albuterol Sulfate [facility] [address]-48 90 mcg/actuation September 10, 2011 2 puffs by Inhalation route every 4-6 hours as needed PRNcough or wheezing Hydrochlorothiazide [facility] [address]-34 50 MG Orally Once a day Apr 18, 2015 1 tablet Promethazine-Codeine [facility] [address]-32 6.25-10 MG/5ML Orally every 6 hrs Apr 17, 2015 5 ml as needed Levemir [facility] [address]-55 100 UNIT/ML Subcutaneous 2 times a day Jun 02, 2014 inject 25 unit in am and pm1 Injection by Subcutaneous route 2 times per day 30units AM, 34units at HS Diclofenac Sodium [facility] 91084065212 50MG DR Orally Three times a day 1 tablet [place] [facility] [address]-61 31G X 6 MM 2 times a day Mar 15, 2015 as directed Vytorin [facility] [address]-49 10-40 MG Orally Once a day 1 tablet Atenolol [facility] [address]-91 100 mg orally once July 01, 2014 1 tablet by Oral route 1 time per day Levemir FlexTouch [facility] [address]-65 100 UNIT/ML Subcutaneous 2 times a day Mar 15, 2015 30 units in am and 34 units at hs Procedures Procedure Coding System Code Date Office Visit, Est Pt., Level 3 CPT-4 43948 May 01, 2015 [facility] VISIT ESTABLISHED PATIENT CPT-4 G0467 May 01, 2015 Vital Signs Date/Time: May 01, 2015 Temperature 97.2 F Weight 136.3 lbs Height 63 in BMI 24.14 Index Blood Pressure Diastolic 80 mmHg Blood Pressure Systolic 152 mmHg Cardiac Monitoring Heart Rate 72 bpm Results No Known Results Summary Purpose eClinicalWorks Submission
--- OUTSIDE RECORDS SUMMARY | 2018-02-13 04:12 | XMS REPORT ---
Author Author NADIYA CARMONA Organization [facility] Address [address] [place] [address] Care Team Providers Care Service Desk Manager Name Role Phone NADIYA CARMONA Unavailable PROBLEMS Type Condition ICD9-CM Code PQP06-HF Code Onset Dates Condition Status SNOMED Code Problem Asthma J45.909 Active 236976376 Problem Reactive depression F32.9 Active 75930637 Problem Secondary hypertension I15.9 Active 84995299 Problem Open bite of left hand, initial encounter S61.452A Active 512998907 Problem Bitten by cat, initial encounter W55.01XA Active 864015607 Problem Moderate persistent asthma with exacerbation J45.41 Active 199546939 Problem Bronchitis J40 Active 91599963 Problem Simple chronic bronchitis J41.0 Active 81346372 Problem Recurrent major depressive disorder, in full remission F33.42 Active 826251150 Problem Renal failure N19 Active 69107684 Problem Joint pain of left hip on movement M25.552 Active 347599455 Problem Hypercholesterolemia E78.00 Active 48234669 Problem Environmental allergies Z91.09 Active 352490857 Problem PVD (peripheral vascular disease) I73.9 Active 369875188 Problem Diabetes mellitus E11.9 Active 26201257 Problem Proteinuria R80.9 Active 97497187 Problem Insomnia G47.00 Active 604150954 Problem Neuropathy G62.9 Active 298257835 Problem GERD (gastroesophageal reflux disease) K21.9 Active 745927435 ALLERGIES Substance Reaction Event Type Date Status Stadol Unknown Drug Allergy Feb, Active Glucotrol Unknown Drug Allergy Feb, Active ENCOUNTERS Encounter Location Date Diagnosis [facility] [address] [facility] [id number] [address] Sep, [facility] [address] [facility] [id number], [place] [address] August, Neuropathy G62.9 [facility] [id number] [place] [address] 69527 -8968 August, Open bite of left hand, initial encounter S61.452A ; Encounter for immunization Z23 and Bitten by cat, initial encounter W55.01XA [facility] [id number] [place] [address] 11143- 6586 05 Jul, 2017 Environmental allergies Z91.09 [place] [address] 56352- 5562 15 Jun, 2017 [place] [address] 16055- 0949 14 Jun, 2017 Simple chronic bronchitis J41.0 ; PVD (peripheral vascular disease) I73.9 and Recurrent major depressive disorder, in full remission F33.42 [facility] [address] [id number] Jun, 2017 Dental examination Z01.20 [facility] [address] [address] -[address]47 Jun, Moderate persistent asthma with exacerbation J45.41 [place] [address] 68254- 4071 May, Neuropathy G62.9 and Diabetes mellitus E11.9 [place] [id number] [place] [address] 38882- 7868 Apr, [facility] [address] 73335 -9168 Apr, Cough R05 [place] [id number] [place] [address] 63699- 2985 Feb, [place] [address] 97590- 7838 Feb, [place] [address] 23203- 2472 Feb, Diabetes mellitus E11.9 ; Neuropathy G62.9 ; Joint pain of left hip on movement M25.552 and Encounter for immunization Z23 [facility] [id number] [place] [address] 12884- 9231 Feb, [facility] [address] 56432- 9662 Feb, Diabetes mellitus E11.9 [facility] [id number] [place] [address] 58616- 7011 Feb, [facility] [address] 14068- 1117 Jan, [facility] [address] 65288- 3284 Jan, Secondary hypertension I15.9 [facility] [address] 08174- 7344 Dec, Diabetes mellitus E11.9 [facility] [address] [id number] Nov, Encounter for dental examination Z01.20 [facility] [address] [address]20[address]335 Oct, Allergic contact dermatitis due to plants, except food L23.7 [facility] [id number] [place] [address] 82075- 1700 Oct, [facility] [id number] [place] [address] 82481- 6688 Oct, Diabetes mellitus E11.9 ; PVD (peripheral vascular disease) I73.9 ; Neuropathy G62.9 ; GERD (gastroesophageal reflux disease) K21.9 ; Insomnia G47.00 ; Environmental allergies Z91.09 ; Secondary hypertension I15.9 ; Reactive depression F32.9 ; Hypercholesterolemia E78.00 and Joint pain of left hip on movement M25.552 [facility] [id number] [place] [address] 11901- 3795 Sep, Diabetes mellitus E11.9 [facility] [address] 66713- 2355 Sep, Diabetes mellitus E11.9 [facility] [id number] [place] [address] 93204- 8364 Sep, Diabetes mellitus E11.9 [facility] [id number] [place] [address] 12444- 7453 Sep, Neuropathy G62.9 [facility] [address] 26418- 4466 August, [facility] [id number] [place] [address] 65129- 0356 Jul, [place] [address] 40180- 1411 Jun, [place] [address] 05319- 4831 Jun, Diabetes mellitus E11.9 ; PVD (peripheral vascular disease) I73.9 ; Neuropathy G62.9 ; Joint pain of left hip on movement M25.552 ; Renal failure N19 ; Asthma J45.909 ; Reactive depression F32.9 ; Pure hypercholesterolemia, unspecified E78.00 and Insomnia G47.00 [facility] [id number] [place] [address] 43922- 2705 Jun, Joint pain of left hip on movement M25.552 and Diabetes mellitus E11.9 [facility] [id number] [place] [address] 79701- 0546 Jun, [facility] [id number] [place] [address] 76686 -9948 May, Cough R05 and Bronchitis J40 [facility] [address] 16879- 9983 May, [facility] [id number] [place] [address] 44444- 1644 May, [facility] [address] 03450- 0267 10 May, 2016 Asthma J45.909 and Bronchitis J40 [place] [address] 16879- 8577 07 May, 2016 [facility] [address] 11339- 3544 07 May, 2016 Bronchitis J40 [facility] [address] 18472- 7807 06 May, 2016 [place] [address] 24073- 7000 Apr, Diabetes mellitus E11.9 ; PVD (peripheral vascular disease) I73.9 ; GERD (gastroesophageal reflux disease) K21.9 ; Asthma J45.909 ; Insomnia G47.00 ; Environmental allergies Z91.09 ; Secondary hypertension I15.9 ; Joint pain of left hip on movement M25.552 ; Hypercholesterolemia E78.0 and Reactive depression F32.9 [place] [id number] [place] [address] 66599- 8207 14 Mar, 2016 Diabetes mellitus E11.9 ; PVD (peripheral vascular disease) I73.9 and Hypercholesterolemia E78.0 [place] [id number] [place] [address] 15756- 6802 Mar, Diabetes mellitus E11.9 and Hypercholesterolemia E78.0 [place] [id number] [place] [address] 37887- 4937 Mar, [place] [id number] [place] [address] 14075- 6502 Feb, [place] [address] 84163- 0006 18 Feb, 2016 [place] [address] 22567- 8706 Feb, [place] [address] 41288- 4515 31 Oct, 2016 Encounter for immunization Z23 [place] [id number] [place] [address] 27846- 1668 10 Jan, 2016 [place] [address] 52329- 2453 Dec, [place] [id number] [place] [address] 61961- 9224 Dec, Diabetes mellitus E11.9 ; PVD (peripheral vascular disease) I73.9 ; GERD (gastroesophageal reflux disease) K21.9 ; Insomnia G47.00 ; Joint pain of left hip on movement M25.552 ; Asthma J45.909 ; Environmental allergies Z91.09 ; Hypercholesterolemia E78.0 ; Essential hypertension I10 and Neuropathy G62.9 [place] [id number] [place] [address] 69877- 3494 Nov, [place] [address] 83659- 3257 Nov, [place] [id number] [place] [address] 99972- 7387 Oct, PVD (peripheral vascular disease) I73.9 and Diabetes mellitus E11.9 [place] [id number] [place] [address] 66369- 5110 Sep, Diabetes mellitus E11.9 ; PVD (peripheral vascular disease) I73.9 ; Neuropathy G62.9 ; Joint pain of left hip on movement M25.552 ; GERD ( gastroesophageal reflux disease) K21.9 ; Asthma J45.909 ; Insomnia G47.00 ; Secondary hypertension I15.9 and Hypercholesteremia E78.0 [place] [id number] [place] [address] 39061- 0138 August, [place] [id number] [place] [address] 60335- 9221 August, Neuropathy G62.9 [place] [id number] [place] [address] 17534- 2829 August, Neuropathy G62.9 [facility] [id number] [place] [address] 61698- 8752 30 Jun, 2015 Diabetes mellitus E11.9 ; Joint pain of left hip on movement M25.552 ; PVD (peripheral vascular disease) I73.9 ; Neuropathy G62.9 ; GERD (gastroesophageal reflux disease) K21.9 ; Asthma J45.909 ; Insomnia G47.00 ; Environmental allergies Z91.09 ; HTN (hypertension) I10 and Hypercholesteremia E78.0 [facility] [id number] [place] [address] 27264- 2755 Jun, [facility] [address] 75336- 1189 Jun, [facility] [id number] [place] [address] 19300- 1892 Jun, [facility] [address] 66170- 1871 Apr, [facility] [id number] [place] [address] 49337- 0882 Apr, [facility] [id number] [place] [address] 24923- 5837 Apr, Sinusitis J32.9 [facility] [id number] [place] [address] 46536- 7938 Apr, Neuropathy G62.9 [facility] [id number] [place] [address] 52326- 6856 Mar, [facility] [id number] [place] [address] 03755- 3491 Mar, [facility] [id number] [place] [address] 95438- 0380 Mar, Diabetes mellitus E11.9 ; PVD (peripheral vascular disease) I73.9 ; Neuropathy G62.9 ; GERD (gastroesophageal reflux disease) K21.9 ; Renal failure N19 ; Asthma J45.909 ; Insomnia G47.00 ; Environmental allergies Z91.09 ; Sinusitis J32.9 ; Cough R05 ; Edema R60.9 ; HTN (hypertension) I10 and Hypercholesterolemia E78.0 [facility] [id number] [place] [address] 26717 -0968 Mar, Dysuria R30.0 ; Vomiting, unspecified R11.10 ; Benign essential hypertension I10 and Dizziness R42 [facility] [address] 87111- 3119 Mar, [facility] [address] 70850- 0886 Mar, [facility] [address] 52699- 8011 Feb, [facility] [address] 45167- 0059 Feb, [facility] [address] 05894- 7763 Feb, [facility] [address] 23467- 7276 Feb, [facility] [address] 26255- 8462 Feb, Joint pain of left hip on movement M25.552 ; Lumbago M54.5 and UTI (urinary tract infection) N39.0 [facility] [id number] [place] [address] 29993- 5945 Feb, [facility] [id number] [place] [address] 38238- 6151 Feb, [facility] [address] 99977- 5343 Jan, [facility] [id number] [place] [address] 97535- 2325 Jan, [facility] [address] 16085- 5483 Jan, [facility] [id number] [place] [address] 13993- 7968 Jan, [facility] [id number] [place] [address] 28943- 4249 Jan, 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 [facility] [address] 97001- 1438 30 Dec, 2014 Hypertension 401.9 and Diabetes 250.00 [facility] [id number] [place] [address] 13099- 8158 Dec, Diabetes 250.00 ; Influenza vaccine administered V04.81 ; Unspecified peripheral vascular disease 443.9 ; Issue of repeat prescriptions V68.1 ; Unspecified hereditary and idiopathic peripheral neuropathy 356.9 ; Insomnia, unspecified 780.52 ; Hypercholesteremia 272.0 ; Pain in joint, site unspecified 719.40 ; Dizziness 780.4 and PCV-13 (PREVNAR) DX V03.82 [facility] [id number] [place] [address] 38143- 3576 Dec, [facility] [id number] [place] [address] 99992- 0734 Dec, [facility] [id number] [place] [address] 16710- 0107 Dec, [facility] [id number] [place] [address] 05370- 2041 Dec, [facility] [id number] [place] [address] 56513- 7186 Dec, [facility] [id number] [place] [address] 75846- 8828 Dec, [facility] [id number] [place] [address] 18493- 2645 Nov, [facility] [id number] [place] [address] 91443- 6106 Nov, Environmental allergies V15.09 ; Sacroiliitis, not elsewhere classified 720.2 and Cough 786.2 [place] [id number] [place] [address] 27602- 2631 Oct, [facility] [id number] [place] [address] 09711- 2437 Oct, [place] [id number] [place] [address] 74156- 6216 Oct, [place] [id number] [place] [address] 46878- 9379 Sep, [place] [address] 49697- 3422 Sep, [place] [id number] [place] [address] 48736- 9408 Sep, Dysuria 788.1 and Diabetes with other specified manifestations, type II or unspecified type, not stated as uncontrolled 250.80 [place] [id number] [place] [address] 48251- 6098 Sep, [place] [id number] [place] [address] 52458- 3316 Sep, Diabetes with other specified manifestations, type II or unspecified type, not stated as uncontrolled 250.80 [place] [id number] [place] [address] 18767- 8218 Sep, DM w/o complication type II 250.00 ; Unspecified peripheral vascular disease 443.9 ; Pain in joint, pelvic region and thigh 719.45 ; Asthma , unspecified, unspecified status 493.90 ; Hypercholesteremia 272.0 ; Fatigue 780.79 ; UTI (lower urinary tract infection) 599.0 and Essential hypertension 401.9 [place] [id number] [place] [address] 82360- 2263 Sep, [place] [id number] [place] [address] 40761- 9529 Sep, [place] [address] [facility] [id number], [place] [address]- 5126 Sep, [facility] [address] [place] [address]- 4216 August, [facility] [address] [id number] [address]- 9226 August, [facility] [address], [place] [address]- 4577 August, Diabetes with other specified manifestations, type II or unspecified type, not stated as uncontrolled 250.80 [facility] [address] [address]- 2400 Jul, Peripheral vascular disease 443.9 [facility] [address] [address]- 1754 Jul, [facility] [address], [place] [address]- 4209 Jul, [facility] [address], [place] [address]- 2519 Jun, [facility] [address] [place]- 5409 Jun, [facility] [address] [id number] [address]- 9065 Jun, [facility] [id number] [place] [address]- 1807 Jun, [facility] [address] [facility] [id number], [place] [address]- 7323 Jun, [facility] [id number] [place] [address]- 6696 Jun, [facility] [address] [facility] [id number] [place] [address]- 7526 Jun, [facility] [address] [id number] [address]- 5334 Jun, [facility] [place] [facility] [address] [id number] [place] [address]- 6193 Jun, [facility] [place] [facility] [address] [id number] [place] [address]- 5951 May, 2014 [facility] [place] [facility] [address] [id number] [place] [address]- 8832 May, 2014 [facility] [place] [facility] [address] [id number] [place] [address]- 9509 May, 2014 [facility] [place] [facility] [address] [id number] [place] [address]- 8748 May, 2014 [facility] [place] [facility] [address] [facility] [id number] [place] [address]- 6710 May, 2014 [facility] [place] [facility] [address] [facility] [id number] [place] [address]- 2752 May, 2014 [facility] [place] [facility] [address] [id number] [place] [address]- 7554 May, 2014 [facility] [place] [facility] [address] [id number] [place] [address]- 3547 May, 2014 [facility] [place] [facility] [address] [facility] [id number] [place] [address]- 3805 May, 2014 [facility] [place] [facility] [address] [facility] [id number] [place] [address]- 6633 May, 2014 [facility] [place] [facility] [address] [facility] [id number] [place] [address]- 0938 May, 2014 [facility] [place] [facility] [address] [facility] [id number] [place] [address]- 4295 May, 2014 [facility] [place] [facility] [address] [facility] [id number] [place] [address]- 5961 May, 2014 [facility] [place] [facility] [address] [facility] [id number] [place] [address]- 0773 Apr, [facility] [place] [facility] [address] [id number] [place] [address]- 4019 Apr, [facility] [place] [facility] [address] [id number] [place] [address]- 7676 Apr, [facility] [place] [facility] [address] [id number] [place] [address]- 6282 Apr, [facility] [place] [facility] [address] [id number] [place] [address]- 4252 Apr, [facility] [place] [facility] [address] [id number] [place] [address]- 4662 Apr, [facility] [place] [facility] [address] [id number] [place] [address]- 5498 Apr, [facility] [place] [facility] [address] [id number] [place] [address]- 0666 Apr, [facility] [place] [facility] [address] [id number] [place] [address]- 9155 Mar, [facility] [place] [facility] [address] [id number] [place] [address]- 2189 Mar, [facility] [place] [facility] [address] [id number] [place] [address]- 4249 Mar, [facility] [place] [facility] [address] [id number] [place] [address]- 9758 Mar, [facility] [place] [facility] [address] [id number] [place] [address]- 6216 Mar, [facility] [place] [facility] [address] [id number] [place] [address]- 7061 Mar, [facility] [place] [facility] [address] [id number] [place] [address]- 4987 Mar, [facility] [place] [facility] [address] [id number] [place] [address]- 8077 Mar, [facility] [place] [facility] [address] [id number] [place] [address]- 0545 Mar, [facility] [place] [facility] [address] [id number] [place] 7949 Mar, [facility] [place] [facility] [address] [id number] [place] [address]- 8854 Mar, [facility] [place] [facility] [address] [id number] [place] [address]- 3612 Mar, [facility] [place] [facility] [address] [id number] [place] [address]- 1607 Mar, [facility] [place] [facility] [address] [id number] [place] 8567 Mar, [facility] [place] [facility] [address] [id number] [place] [address]- 7582 Feb, [facility] [place] [facility] [address] [id number] [place] [address]- 9043 Feb, [facility] [place] [facility] [address] [id number] [place] [address]- 4511 Feb, [facility] [place] [facility] [address] [id number] [place] [address]- 9553 Feb, [facility] [place] [facility] [address] [id number] [place] [address]- 5143 Feb, [facility] [place] [facility] [address] [id number], [place] [address]- 2639 Feb, [facility] [place] [facility] [address] [id number], [place] [address]- 8263 Feb, [facility] [place] [facility] [address] [id number] [place] [address]- 3769 Feb, [facility] [place] [facility] [address] [id number] [place] [address]- 3909 Feb, [facility] [place] [facility] [address] [id number] [place] [address]- 5815 Feb, [facility] [place] [facility] [address] [id number] [place] [address]- [address] Feb, [facility] [place] [facility] [address] [id number] [place] [address] Feb, [facility] [place] [facility] [address] [id number] [place] [address] Feb, [facility] [place] [facility] [address] [id number] [place] [address] Feb, [facility] [place] [facility] [address] [id number] [place] [address] Feb, [facility] [place] [facility] [address] [id number] [place] [address] Feb, [facility] [place] [facility] [address] [id number] [place] [address] Jan, [facility] [place] [facility] [address] [id number] [place] [address] Jan, [facility] [place] [facility] [address] [id number] [place] [address] Jan, [facility] [place] [facility] [address] [id number] [place] [address] Jan, [facility] [place] [facility] [address] [id number] [place] [address] Jan, [facility] [place] [facility] [address] [id number] [place] [address] Jan, [facility] [place] [facility] [address] [id number] [place] [address] Jan, [facility] [place] [facility] [address] [id number] [place] [address] Jan, [facility] [place] [facility] [address] [id number] [place] [address] Dec, [facility] [place] [facility] [address] [id number] [place] [address] Dec, [facility] [place] [facility] [address] [id number] [place] [address] Nov, [facility] [place] [facility] [address] [id number] [place] [address] Nov, [facility] [place] [facility] [address] [id number] [place] [address] Nov, [facility] [place] [facility] [address] [id number] [place] [address] Nov, [facility] [place] [facility] [address] [id number] [place] [address] Nov, [facility] [place] [facility] [address] [id number] [place] [address] Nov, [facility] [place] [facility] [address] [id number] [place] [address] Oct, [facility] [place] [facility] [address] [id number] [place] [address] Oct, [facility] [place] [facility] [address] [id number] [place] [address] Oct, [facility] [place] [facility] [address] [id number] [place] [address] Oct, [facility] [place] [facility] [address] [id number] [place] [address] Sep, [facility] [place] [facility] [address] [id number] [place] [address] Sep, [facility] [place] [facility] [address] [id number] [place] [address] Sep, [facility] [place] [facility] [address] [id number] [place] [address] Sep, [facility] [place] [facility] [address] [id number] [place] [address] Sep, [facility] [place] [facility] [address] [id number] [place] [address] 9867 Sep, [facility] [address] [id number] [place] [address] 88[address] August, [facility] [place] [facility] [address] [id number] [place] [address] August, [facility] [place] [facility] [address] [id number] [place] [address] August, [facility] [place] [facility] [address] [id number] [place] [address] 67[address] August, [facility] [place] [facility] [address] [id number] [place] [address] 6810 August, [facility] [place] [facility] [address] [id number] [place] [address] 5117 August, [facility] [place] [facility] [address] [id number] [place] [address] 9794 August, [facility] [place] [facility] [address] [id number] [place] [address]- 4239 August, [facility] [place] [facility] [address] [id number] [place] [address]- [address]34 August, [facility] [place] [facility] [address] [id number] [place] [address]- 8118 August, [facility] [place] [facility] [address] [id number] [place] [address] 8846 August, [facility] [place] [facility] [address] [id number] [place] [address]- 2435 August, [facility] [place] [facility] [address] [id number] [place] [address]- 0520 Jul, [facility] [place] [facility] [address] [id number] [place] [address]- 5623 Jul, [facility] [place] [facility] [address] [id number] [place] [address]- 6314 Jul, [facility] [place] [facility] [address] [id number] [place] [address] 4[address] 18 Jul, 2013 [facility] [place] [facility] [address] [id number] [place] [address]- 5101 08 Jul, 2013 [facility] [place] [facility] [address] [id number] [place] [address]- 1726 08 Jul, 2013 [facility] [place] [facility] [address] [id number] [place] [address]- 0611 Jul, [facility] [place] [facility] [address] [id number] [place] [address]- 7153 Jul, [facility] [place] [facility] [address] [id number] [place] [address]- 2934 Jul, [facility] [place] [facility] [address] [id number] [place] [address]- 9559 Jul, [facility] [place] [facility] [address] [id number] [place] [address]- 6413 Jul, [facility] [place] [facility] [address] [id number] [place] [address]- 1895 Jun, [facility] [place] [facility] [address] [id number] [place] [address]- 3110 31 Jun, 2013 [facility] [place] [facility] [address] [id number] [place] [address]- 5459 Jun, [facility] [place] [facility] [address] [id number] [place] [address]- 3287 28 Jun, 2013 [facility] [place] [facility] [address] [id number] [place] [address]- 3247 Jun, [facility] [place] [facility] [address] [id number] [place] [address]- 0579 Jun, [facility] [place] [facility] [address] [id number] [place] [address]- 8066 Jun, [facility] [place] [facility] [address] [id number] [place] [address]- 6194 Jun, [facility] [place] [facility] [address] [id number] [place] [address]- 9435 Jun, [facility] [place] [facility] [address] [id number] [place] [address]- 7877 May, [facility] [place] [facility] [address] [id number] [place] [address]- 9149 May, [facility] [place] [facility] [address] [id number] [place] [address]- 7037 May, [facility] [place] [facility] [address] [id number] [place] [address]- 5252 Apr, [facility] [place] [facility] [address] [id number] [place] [address]- 0846 Apr, [facility] [place] [facility] [address] [id number] [place] [address]- 1378 Apr, [facility] [place] [facility] [address] [id number] [place] [address]- 2865 Apr, [facility] [place] [facility] [address] [id number] [place] [address]- 8725 Apr, [facility] [place] [facility] [address] [id number] [place] [address]- 9632 Apr, [facility] [place] [facility] [address] [id number] [place] [address]- 7589 Apr, [facility] [place] [facility] [address] [id number] [place] [address]- 3145 Apr, [facility] [place] [facility] [address] [id number] [place] [address]- 2474 Mar, [facility] [place] [facility] [address] [id number] [place] [address]- 6984 Mar, [facility] [place] [facility] [address] [id number] [place] [address]- 0744 Feb, [facility] [place] [facility] [address] [id number] [place] [address]- 2703 04 Feb, 2013 [facility] [place] [facility] [address] [id number] [place] [address]- 5059 31 Jan, 2012 [facility] [place] [facility] [address] [id number] [place] [address]- 5809 31 Jan, 2012 [facility] [place] [facility] [address] [id number] [place] [address]- 8117 Jan, 2012 [facility] [place] [facility] [address] [id number] [place] [address]- 4272 Jan, 2012 [facility] [place] [facility] [address] [id number] [place] [address]- 4353 Jan, [facility] [place] [facility] [address] [id number] [place] [address]- 8099 24 Jan, 2013 [facility] [place] [facility] [address] [id number] [place] [address]- 8035 Jan, 2012 [facility] [place] [facility] [address] [id number] [place] [address]- 0257 Jan, [facility] [place] [facility] [address] [id number] [place] [address]- 6973 17 Jan, 2012 [facility] [place] [facility] [address] [id number] [place] [address]- 7728 17 Jan, 2012 [facility] [place] [facility] [address] [id number] [place] [address]- 6673 14 Jan, 2012 [facility] [place] [facility] [address] [id number] [place] [address]- 9383 14 Jan, 2012 [facility] [place] [facility] [address] [id number] [place] [address]- 3454 10 Jan, 2012 [facility] [place] [facility] [address] [id number] [place] [address]- 5390 10 Jan, 2012 [facility] [place] [facility] [address] [id number] [place] [address]- 9123 Jan, 2012 [facility] [place] [facility] [address] [id number] [place] [address]- 6589 Jan, 2012 [facility] [place] [facility] [address] [id number] [place] [address]- 1825 Jan, 2012 [facility] [place] [facility] [address] [id number] [place] [address]- 8027 Jan, 2012 [facility] [place] [facility] [address] [id number] [place] [address]- 6908 Jan, 2012 [facility] [address] [id number] [place] [address]- 7855 Jan, 2012 [facility] [place] [facility] [address] [id number] [place] [address]- 7772 Jan, 2012 [facility] [place] [facility] [address] [id number] [place] [address]- 2490 Jan, [facility] [place] [facility] [address] [id number] [place] [address]- 7392 Jan, [facility] [place] [facility] [address] [id number] [place] [address]- 2188 Dec, [facility] [place] [facility] [address] [id number] [place] [address]- 2826 16 Dec, 2012 [facility] [place] [facility] [address] [id number] [place] [address]- 3538 Nov, [facility] [place] [facility] [address] [id number], [place] [address]- 2543 Oct, [facility] [place] [facility] [address] [id number] [place] [address]- 2544 Oct, [facility] [place] [facility] [address] [id number] [place] [address]- 3927 Oct, [facility] [place] [facility] [address] [id number] [place] [address]- 2540 Oct, [facility] [place] [facility] [address] [id number] [place] [address]- 2977 Oct, [facility] [place] [facility] [address] [id number] [place] [address]- 6957 Oct, [facility] [place] [facility] [address] [id number] [place] [address]- 9367 Sep, [facility] [place] [facility] [address] [id number] [place] [address]- 5629 Sep, [facility] [place] [facility] [address] [id number] [place] [address]- 3464 Sep, [facility] [place] [facility] [address] [id number] [place] [address]- 1069 Jul, [facility] [place] [facility] [address] [id number] [place] [address]- 9414 Jul, [facility] [place] [facility] [address] [id number] [place] [address]- 5827 Jul, [facility] [place] [facility] [address] [id number] [place] [address]- 4415 Jun, [facility] [place] [facility] [address] [id number] [place] [address]- 0740 Jun, [facility] [place] [facility] [address] [id number] [place] [address]- 5733 Jun, [facility] [place] [facility] [address] [id number] [place] [address]- 8269 Jun, [facility] [place] [facility] [address] [id number] [place] [address]- 0228 Jun, [facility] [place] [facility] [address] [id number] [place] [address]- 4487 Jun, [facility] [place] [facility] [address] [id number] [place] [address]- 6895 May, [facility] [place] [facility] [address] [id number] [place] [address]- 5573 May, [facility] [place] [facility] [address] [id number] [place] [address]- 6289 31 Apr, 2012 [facility] [address] [id number] [place] [address]- 5869 29 Apr, 2012 [facility] [place] [facility] [address] [id number] [place] [address]- 4886 Apr, [facility] [address] [id number] [place] [address]- 6716 Apr, [facility] [place] [facility] [address] [id number] [place] [address]- 6143 Apr, [facility] [address] [id number] [place] [address]- 0737 Mar, [facility] [place] [facility] [address] [id number] [place] [address]- 4316 Mar, [facility] [address] [id number] [place] [address]- 2383 Mar, [facility] [address] [id number] [place] [address]- 7643 27 Mar, 2012 [facility] [place] [facility] [address] [id number] [place] [address]- 4656 14 Mar, 2012 [facility] [address] [id number] [place] [address]- 7102 14 Mar, 2012 [facility] [place] [facility] [address] [id number] [place] [address]- 4952 10 Mar, 2012 [facility] [place] [facility] [address] [id number] [place] [address] 2546 10 Mar, 2012 [facility] [place] [facility] [address] [id number] [place] [address]- 0436 05 Mar, 2012 [facility] [place] [facility] [address] [id number] [place] [address]- 0276 05 Mar, 2012 [facility] [place] [facility] [address] [id number] [place] [address]- 3595 Feb, [facility] [place] [facility] [address] [id number] [place] [address]- 2150 Feb, [facility] [place] [facility] [address] [id number] [place] [address]- 0971 Feb, [facility] [place] [facility] [address] [id number] [place] [address]- 6724 Feb, [facility] [place] [facility] [address] [id number] [place] [address]- 0316 Feb, [facility] [place] [facility] [address] [id number] [place] [address]- 3391 Feb, [facility] [place] [facility] [address] [id number] [place] [address]- 1783 Feb, [facility] [place] [facility] [address] [facility] [id number] [place] [address]- 6368 Feb, [facility] [place] [facility] [address] [id number], [place] [address]- 4343 Feb, [facility] [place] [facility] [address] [id number] [place] [address]- 4496 Feb, [facility] [place] [facility] [address] [facility] [id number], [place] [address]- 3495 Jan, [facility] [place] [facility] [address] [id number], [place] [address]- 4951 Jan, [facility] [place] [facility] [address] [id number], [place] [address]- 7371 Jan, [facility] [place] [facility] [address] [id number], [place] [address]- 5281 Jan, [facility] [place] [facility] [address] [id number], [place] [address]- 0711 Dec, [facility] [place] [facility] [address] [facility] [id number], [place] [address]- 3185 Dec, [facility] [place] [facility] [address] [id number] [place] [address]- 5850 18 Sep, 2011 [facility] [place] [facility] [address] [id number] [place] [address]- 9466 18 Sep, 2011 [facility] [place] [facility] [address] [id number] [place] [address]- 5026 17 Sep, 2011 [facility] [place] [facility] [address] [id number] [place] [address]- 6126 14 Sep, 2011 [facility] [place] [facility] [address] [id number] [place] [address] 2546 13 Dec, 2011 [facility] [place] [facility] [address] [id number] [place] [address]- 8786 13 Dec, 2011 [facility] [place] [facility] [address] [id number] [place] [address]- 3136 06 Dec, 2011 [facility] [place] [facility] [address] [id number] [place] [address]- 6788 31 Nov, 2011 [facility] [place] [facility] [address] [id number] [place] [address]- 3658 30 Nov, 2011 [facility] [place] [facility] [address] [id number] [place] [address]- 7291 Nov, [facility] [place] [facility] [address] [id number] [place] [address]- 9280 Nov, [facility] [place] [facility] [address] [id number] [place] [address]- 3034 Sep, [facility] [place] [facility] [address] [id number] [place] [address]- 3503 Sep, [facility] [place] [facility] [address] [id number] [place] [address]- 3655 Sep, [facility] [place] [facility] [address] [id number] [place] [address]- 3423 August, [facility] [place] [facility] [address] [id number] [place] [address]- 7300 August, [facility] [place] [facility] [address] [id number] [place] [address]- 9763 August, [facility] [address] [id number] [place] [address]- 8794 August, [facility] [place] [facility] [address] [id number] [place] [address]- 5940 August, [facility] [address] [id number] [place] [address]- 8238 August, [facility] [address] [id number] [place] [address]- 9160 August, [facility] [place] [facility] [address] [id number] [place] [address]- 9858 August, [facility] [address] [id number] [place] [address]- 0675 August, [facility] [address] [id number] [place] [address]- 3885 Jul, [facility] [address] [id number] [place] [address]- 2971 Jun, [facility] [place] [facility] [address] [id number] [place] [address]- 1178 Jun, [facility] [place] [facility] [address] [id number] [place] [address]- 7331 Jun, [facility] [place] [facility] [address] [id number] [place] [address]- 0374 Jun, [facility] [place] [facility] [address] [id number] [place] [address]- 1265 Jun, [facility] [place] [facility] [address] [id number] [place] [address]- 7241 Jun, [facility] [place] [facility] [address] [id number] [place] [address]- 5478 Jun, [facility] [place] [facility] [address] [id number] [place] [address]- 2006 Jun, [facility] [address] [id number] [place] [address]- 7754 27 May, 2011 [facility] [place] [facility] [address] [id number] [place] [address]- 9266 21 May, 2011 [facility] [address] [id number] [place] [address]- 0366 20 May, 2011 [facility] [address] [id number] [place] [address]- 7768 19 May, 2011 [facility] [address] [id number] [place] [address]- 2186 17 May, 2011 [facility] [address] [id number] [place] [address]- 5126 16 May, 2011 [facility] [address] [facility] [id number] [place] [address]- 4120 14 May, 2011 [facility] [address] [id number] [place] [address]- 6232 Apr, [facility] [address] [id number] [place] [address]- 5326 16 Apr, 2011 [facility] [address] [facility] [id number] [place] [address]- 6902 Apr, [facility] [address] [id number] [place] [address]- 1192 Apr, [facility] [place] [facility] [address] [id number] [place] [address]- 6838 Apr, [facility] [place] [facility] [address] [id number] [place] [address]- 4546 09 Apr, 2011 [facility] [place] [facility] [address] [facility] [id number] [place] [address]- 6756 05 Apr, 2011 [facility] [place] [facility] [address] [facility] [id number] [place] [address]- 6396 Apr, [facility] [place] [facility] [address] [id number] [place] [address]- 0882 29 Mar, 2011 [facility] [place] [facility] [address] [id number] [place] [address]- 8868 20 Mar, 2011 [facility] [place] [facility] [address] [id number] [place] [address]- 8072 28 Feb, 2011 [facility] [place] [facility] [address] [id number] [place] [address]- 3790 17 Feb, 2011 [facility] [place] [facility] [address] [id number] [place] [address]- 8864 17 Feb, 2011 [facility] [place] [facility] [address] [id number] [place] [address]- 2362 16 Feb, 2011 [facility] [place] [facility] [address] [id number] [place] [address]- 1858 16 Feb, 2011 [facility] [place] [facility] [address] [id number] [place] [address]- 4848 24 Jan, 2011 [facility] [place] [facility] [address] [id number] [place] [address]- 2395 Nov, [facility] [place] [facility] [address] [id number] [place] [address]- 6458 Sep, [facility] [place] [facility] [address] [id number] [place] [address]- 6644 August, [facility] [place] [facility] [address] [id number] [place] [address]- 7822 Jun, [facility] [place] [facility] [address] [id number] [place] [address]- 7802 14 May, 2010 [facility] [place] [facility] [address] [id number] [place] [address]- 4531 18 Apr, 2010 [facility] [place] [facility] [address] [id number] [place] [address]- 7975 22 Mar, 2010 [facility] [place] [facility] [address] [id number], [place] [address]- 6936 14 Mar, 2010 [facility] [address] [facility] [id number], [place] [address]- 4225 14 Mar, 2010 [facility] [address] [facility] [id number], [place] [address]- 7416 Feb, [facility] [address] [facility] [id number], [place] [address]- 2740 Feb, [facility] [address] [facility] [id number], [place] [address]- 1214 Jan, [facility] [address] [facility] [id number], [place] [address]- 2192 Jan, [facility] [address] [facility] [id number] 8820 Jan, [facility] [address] [facility] [id number], [place] [address] Oct, [facility] [address] [facility] [id number], [place] [address] Oct, [facility] [address] [facility] [id number], [place] [address] Apr, [facility] [address] [facility] [id number] [address] Mar, [facility] [address] [facility] [id number], [place] [address] Mar, [facility] [address] [facility] [id number] [id number] Jan, [facility] [address] [facility] [id number], [place] [address] Dec, IMMUNIZATIONS No Known Immunizations SOCIAL HISTORY Never Assessed REASON FOR VISIT PALS levemir and pen needles PLAN OF CARE VITAL SIGNS MEDICATIONS Medication Instructions Dosage Frequency Start Date End Date Duration Status Levemir Flexpen 100 UNIT/ML Subcutaneous 2 times a day Inject 25 units in AM and PM 12h 90 days Active Pen [place] 32G X 4 MM subcutaneously 2 times a day use to Inject insulin 12h 25 Feb, 2015 90 days Active RESULTS No Results PROCEDURES [...]
--- OUTSIDE RECORDS SUMMARY | 2018-02-13 04:12 | XMS REPORT ---
Author Author NICHELLE VALENZUELA Organization [facility] Address [address] [place] [address] Care Team Providers Care Pediatric Associate Name Role Phone NICHELLE VALENZUELA Unavailable PROBLEMS Type Condition ICD9-CM Code [id number] Code Onset Dates Condition Status SNOMED Code Problem PVD (peripheral vascular disease) I73.9 Active 782221768 Problem Insomnia G47.00 Active 382354318 Problem Diabetes mellitus E11.9 Active 13317885 Problem Encounter for dental examination Z01.20 Active 173553060 Problem Bronchitis J40 Active 45639844 Problem Asthma J45.909 Active 155643294 Problem GERD (gastroesophageal reflux disease) K21.9 Active 528782948 Problem Reactive depression F32.9 Active 86934773 Problem Secondary hypertension I15.9 Active 21083681 Problem Renal failure N19 Active 03633566 Problem Joint pain of left hip on movement M25.552 Active 214312056 Problem Hypercholesterolemia E78.00 Active 85729204 Problem Proteinuria R80.9 Active 48405908 Problem Environmental allergies Z91.09 Active 645793708 Problem Neuropathy G62.9 Active 757674201 ALLERGIES No Known Allergies SOCIAL HISTORY No smoking Hx information available PLAN OF CARE VITAL SIGNS MEDICATIONS No Known Medications RESULTS No Results PROCEDURES No Known procedures IMMUNIZATIONS No Known Immunizations
[2018-02-13 04:13] LABS: ACETAMINOPHEN < 10 UG/ML (10-30); ALANINE AMINOTRANSFERASE 19 U/L (0-55); ALBUMIN 3.9 GM/DL (3.2-4.5); ALKALINE PHOSPHATASE 54 U/L (40-136); BILIRUBIN,TOTAL 0.6 MG/DL (0.1-1.0); BUN/CREATININE RATIO 13; CALCIUM 9.7 MG/DL (8.5-10.1); CARBON DIOXIDE 28 MMOL/L (21-32); CHLORIDE 93 MMOL/L (98-107); CREATININE SERUM 0.71 MG/DL (0.60-1.30); GFR ESTIMATED > 60; GLUCOSE 171 MG/DL (70-105); SODIUM 133 MMOL/L (135-145); TOTAL PROTEIN 5.5 GM/DL (6.4-8.2)
[2018-02-13 04:13] LABS: BACTERIA,URINE TRACE /HPF; HYALINE CASTS, URINE RARE /LPF; SQUAMOUS EPITHELIAL CELL,UR RARE /HPF
--- OUTSIDE RECORDS SUMMARY | 2018-02-13 04:13 | XMS REPORT ---
Author Author NICHELLE VALENZUELA Organization [facility] Address [address] [place] [address] Care Team Providers Care Finishing Lab Technician Name Role Phone NICHELLE VALENZUELA Unavailable PROBLEMS Type Condition ICD9-CM Code XCQ23-ZG Code Onset Dates Condition Status SNOMED Code Problem PVD (peripheral vascular disease) I73.9 Active 865233467 Problem Insomnia G47.00 Active 264656155 Problem Diabetes mellitus E11.9 Active 70655775 Problem Encounter for dental examination Z01.20 Active 208019515 Problem Bronchitis J40 Active 24815882 Problem Asthma J45.909 Active 225437856 Problem GERD (gastroesophageal reflux disease) K21.9 Active 162916728 Problem Reactive depression F32.9 Active 80218284 Problem Secondary hypertension I15.9 Active 80271615 Problem Renal failure N19 Active 08131392 Problem Joint pain of left hip on movement M25.552 Active 028538117 Problem Hypercholesterolemia E78.00 Active 38352173 Problem Proteinuria R80.9 Active 51778112 Problem Environmental allergies Z91.09 Active 596839627 Problem Neuropathy G62.9 Active 147192288 ALLERGIES No Information SOCIAL HISTORY Never Assessed [...]
--- OUTSIDE RECORDS SUMMARY | 2018-02-13 04:13 | XMS REPORT ---
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
--- OUTSIDE RECORDS SUMMARY | 2018-02-13 04:13 | XMS REPORT ---
Author Author NICHELLE VALENZUELA [facility] eClinicalWorks Address Unknown Phone Unavailable Care Team Providers Care Colon And Rectal Surgeon Name Role Phone NICHELLE VALENZUELA Unavailable Allergies [...] Start Date End Date Status Dosage Percocet [facility] [address]-92 5-325 MG Orally every 6 hrs Mar 08, 2016 1 tablet as needed Results No Known Results Summary Purpose eClinicalWorks Submission
--- OUTSIDE RECORDS SUMMARY | 2018-02-13 04:13 | XMS REPORT ---
Author Author SOLO LOCKETT [facility] eClinicalWorks Address Unknown Phone Unavailable Care Team Providers Care Whiting Machine Operator Name Role Phone SOLO LOCKETT Unavailable Allergies, Adverse Reactions, Alerts Substance Reaction [...] G62.9 Active Problem Proteinuria R80.9 Active Assessment Benign essential hypertension I10 Active Assessment Vomiting, unspecified R11.10 Active Assessment Dysuria R30.0 Active Assessment Dizziness R42 Active Problem Environmental allergies Z91.09 Active Medications Medication Code System Code Instructions Start Date End Date Status Dosage Metformin HCl [facility] 92980874042 1000 MG Orally Twice a day 1 tablet with meals Levemir FlexTouch [facility] [address]-57 100 UNIT/ML Subcutaneous 2 times a day Mar 15, 2015 30 units in am and 34 units at hs Flonase [facility] [address]-03 50 MCG/ACT Nasally Once a day Mar 15, 2015 1 spray in each nostril [place] [facility] [address]-72 31G X 6 MM 2 times a day Mar 15, 2015 as directed Percocet [facility] [address]-91 5-325 MG Orally every 6 hrs Jun 16, 2014 take 1 tablet by oral route every 6 hours as needed Diclofenac Sodium [facility] 68325738278 50MG DR Orally Three times a day 1 tablet Atenolol [facility] [address]-88 100 mg orally once July 01, 2014 1 tablet by Oral route 1 time per day Zanaflex [facility] [address]-76 4 MG Orally every 8 hrs September 19, 2014 1 tablet as needed Promethazine HCl [facility] [address]-60 12.5 MG Orally every 6 hrs Apr 15, 2015 Apr 20, 2015 1 tablet as needed Zofran ODT [facility] [address]-41 8 mg June 30, 2014 1 tablet by Oral route every 8 hours PRN nausea or vomiting Norvasc [facility] [address]-01 5 MG Orally 2 times a day May 02, 2014 1 tablet by Oral route 2 times per day Levemir [facility] [address]-25 100 UNIT/ML Subcutaneous 2 times a day Jun 02, 2014 inject 25 unit in am and pm1 Injection by Subcutaneous route 2 times per day 30units AM, 34units at HS Nasonex [facility] [address]-67 50 mcg/actuation Jun 03, 2014 1 sprays by Nasal route 2 times per day in each nostril Hydrochlorothiazide [facility] [address]-70 50 MG Orally Once a day Mar 21, 2014 1 tablet by Oral route 1 time per day Vytorin [facility] [address]-60 10-40 MG Orally Once a day 1 tablet amitriptyline [facility] 0 150 mg July 01, 2014 take 1 tablet (150 mg) by oral route once daily at bedtime Gabapentin [facility] [address]-20 300 mg July 01, 2014 1 capsule by Oral route 3 times per day Procedures Procedure Coding System Code Date GLUCOSE BLOOD TEST CPT-4 68226 Apr 15, 2015 PHENERGAN (IM) 12.5 MG (25 MG/ML) CPT-4 J2550 Apr 15, 2015 URINALYSIS, AUTO, W/O SCOPE CPT-4 46814 Apr 15, 2015 Office Visit, Est Pt., Level 3 CPT-4 48506 Apr 15, 2015 INFUS NORMAL SALINE SOLUTION 250 CC CPT-4 J7050 Apr 15, 2015 THER/PROPH/DIAG INJ, SC/IM CPT-4 15273 Apr 15, 2015 [facility] VISIT ESTABLISHED PATIENT CPT-4 G0467 Apr 15, 2015 HYDRATION IV INFUSION, INIT CPT-4 03630 Apr 15, 2015 Vital Signs Date/Time: Apr 15, 2015 Temperature 97.6 F Weight 132 lbs Height 63 in BMI 23.38 Index Blood Pressure Diastolic 84 mmHg Blood Pressure Systolic 122 mmHg Cardiac Monitoring Heart Rate 80 bpm Results Name Result Date Reference Range Unit Abnormality Flag GLUCOSE FINGERSTICK (IN HOUSE) ----GLU FINGERSTICK 97 20150415 ----PC vomiting 20150415 ----Lot # [id number] ----Exp date 08/04/201520150415 UA LONG DIP (IN HOUSE) ----CASIE negative 20150415 ----GLU negative 20150415 ----SG 1.015 20150415 ----KET 1+ 20150415 ----pH 7.0 20150415 ----Protein negative 20150415 ----BLO negative 20150415 ----IDALIA negative 20150415 ----Color yellow 20150415 ----Lot # [id number] ----Odor none 20150415 ----Exp date 20150415 ----URO 1.0 E.U./dL 20150415 ----NIT negative 20150415 ----Clarity clear 20150415 ----Lot # [id number] ----Exp date 20150415 Summary Purpose eClinicalWorks Submission
--- OUTSIDE RECORDS SUMMARY | 2018-02-13 04:13 | XMS REPORT ---
Author Author NICHELLE VALENZUELA [facility] eClinicalWorks Address Unknown Phone Unavailable Care Team Providers Care Transport Engineer Name Role Phone NICHELLE VALENZUELA Unavailable Allergies [...] End Date Status Dosage Metformin HCl [facility] [address]-33 1000 MG Orally Twice a day Dec 27, 2014 1 tablet with meals Results No Known Results Summary Purpose eClinicalWorks Submission
--- OUTSIDE RECORDS SUMMARY | 2018-02-13 04:14 | XMS REPORT ---
Author Author NICHELLE VALENZUELA [facility] eClinicalWorks Address Unknown Phone Unavailable Care Team Providers Care Formula Maker Name Role Phone NICHELLE VALENZUELA Unavailable Allergies [...]
--- OUTSIDE RECORDS SUMMARY | 2018-02-13 04:14 | XMS REPORT ---
Author Author NICHELLE VALENZUELA Organization [facility] Address [address] [place] [address] Care Team Providers Care Vacuum Filter Operator Name Role Phone NICHELLE VALENZUELA Unavailable PROBLEMS Type Condition ICD9-CM Code FGG44-CP Code Onset Dates Condition Status SNOMED Code Problem PVD (peripheral vascular disease) I73.9 Active 473145132 Problem Insomnia G47.00 Active 418471575 Problem Diabetes mellitus E11.9 Active 34041292 Problem Encounter for dental examination Z01.20 Active 915236043 Problem Bronchitis J40 Active 27442360 Problem Asthma J45.909 Active 939870133 Problem GERD (gastroesophageal reflux disease) K21.9 Active 014116775 Problem Reactive depression F32.9 Active 02436684 Problem Secondary hypertension I15.9 Active 91405754 Problem Renal failure N19 Active 56533653 Problem Joint pain of left hip on movement M25.552 Active 599794087 Problem Hypercholesterolemia E78.00 Active 40771624 Problem Proteinuria R80.9 Active 18230901 Problem Environmental allergies Z91.09 Active 424031109 Problem Neuropathy G62.9 Active 858641633 ALLERGIES No Information SOCIAL HISTORY Never Assessed [...]
--- OUTSIDE RECORDS SUMMARY | 2018-02-13 04:14 | XMS REPORT ---
Author Author NICHELLE VALENZUELA [facility] eClinicalWorks Address Unknown Phone Unavailable Care Team Providers Care Deputy County Clerk Name Role Phone NICHELLE VALENZUELA Unavailable Allergies [...] Start Date End Date Status Dosage Zanaflex [facility] [address]-00 4 MG Orally every 8 hrs September 19, 2014 1 tablet as needed Results No Known Results Summary Purpose eClinicalWorks Submission
--- OUTSIDE RECORDS SUMMARY | 2018-02-13 04:14 | XMS REPORT ---
Author Author NICHELLE VALENZUELA Organization [facility] Address [address] [place] [address] Care Team Providers Care Enrichment Assistant Name Role Phone NICHELLE VALENZUELA Unavailable PROBLEMS Type Condition ICD9-CM Code ZMH20-CN Code Onset Dates Condition Status SNOMED Code Problem Renal failure N19 Active 15535644 Problem Joint pain of left hip on movement M25.552 Active 392956526 Problem GERD (gastroesophageal reflux disease) K21.9 Active 213948522 Problem Environmental allergies Z91.09 Active 190766067 Problem Insomnia G47.00 Active 843920494 Problem Asthma J45.909 Active 016090648 Problem Hypercholesterolemia E78.0 Active 06976094 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
--- OUTSIDE RECORDS SUMMARY | 2018-02-13 04:14 | XMS REPORT ---
Author Author NICHELLE VALENZUELA Organization [facility] Address [address] [place] [address] Care Team Providers Care Cardiopulmonary Technologist Chief Name Role Phone NICHELLE VALENZUELA Unavailable PROBLEMS Type Condition ICD9-CM Code ZZH29-OB Code Onset Dates Condition Status SNOMED Code Problem PVD (peripheral vascular disease) I73.9 Active 257232599 Problem Insomnia G47.00 Active 767299408 Problem Diabetes mellitus E11.9 Active 91786440 Problem Encounter for dental examination Z01.20 Active 320835343 Problem Bronchitis J40 Active 30481930 Problem Asthma J45.909 Active 057192481 Problem GERD (gastroesophageal reflux disease) K21.9 Active 718250264 Problem Reactive depression F32.9 Active 11786421 Problem Secondary hypertension I15.9 Active 22663653 Problem Renal failure N19 Active 13666741 Problem Joint pain of left hip on movement M25.552 Active 131397878 Problem Hypercholesterolemia E78.00 Active 77711872 Problem Proteinuria R80.9 Active 68903641 Problem Environmental allergies Z91.09 Active 036628742 Problem Neuropathy G62.9 Active 112910346 ALLERGIES No Information SOCIAL HISTORY Never Assessed [...]
--- OUTSIDE RECORDS SUMMARY | 2018-02-13 04:15 | XMS REPORT ---
Author Author NICHELLE VALENZUELA [facility] eClinicalWorks Address Unknown Phone Unavailable Care Team Providers Care Client Service Administrator Name Role Phone NICHELLE VALENZUELA Unavailable Allergies [...] Instructions Start Date End Date Status Dosage Flonase [facility] [address]-21 50 MCG/ACT Nasally Once a day Mar 15, 2015 1 spray in each nostril Results No Known Results Summary Purpose eClinicalWorks Submission
--- OUTSIDE RECORDS SUMMARY | 2018-02-13 04:15 | XMS REPORT ---
Author Author NICHELLE VALENZUELA [facility] eClinicalWorks Address Unknown Phone Unavailable Care Team Providers Care Dental Detail Representative Name Role Phone NICHELLE VALENZUELA CP Unavailable Allergies, Adverse Reactions, Alerts Substance [...] G62.9 Active Problem Proteinuria R80.9 Active Assessment UTI (urinary tract infection) N39.0 Active Assessment Lumbago M54.5 Active Assessment Joint pain of left hip on movement M25.552 Active Problem Environmental allergies Z91.09 Active Medications Medication Code System Code Instructions Start Date End Date Status Dosage Atenolol [facility] [address]-53 100 mg July 01, 2014 1 tablet by Oral route 1 time per day Metformin HCl [facility] 54482211595 1000 MG Orally Twice a day 1 tablet with meals Percocet [facility] [address]-54 5-325 MG Orally every 6 hrs Jun 16, 2014 take 1 tablet by oral route every 6 hours as needed amitriptyline [facility] 0 150 mg July 01, 2014 take 1 tablet (150 mg) by oral route once daily at bedtime Levemir [facility] [address]-45 100 UNIT/ML Subcutaneous 2 times a day Jun 02, 2014 inject 25 unit in am and pm1 Injection by Subcutaneous route 2 times per day 30units AM, 34units at HS Macrobid [facility] [address]-23 100 MG Orally every 12 hrs Feb 27, 2015Feb 1 capsule with food Hydrochlorothiazide [facility] [address]-51 50 mg Mar 21, 2014 1 tablet by Oral route 1 time per day Gabapentin [facility] [address]-34 300 mg July 01, 2014 1 capsule by Oral route 3 times per day Norvasc [facility] [address]-89 5 MG Orally 2 times a day May 02, 2014 1 tablet by Oral route 2 times per day Vytorin [facility] [address]-90 10-40 MG Orally Once a day 1 tablet Albuterol Sulfate [facility] [address]-44 90 mcg/actuation September 10, 2011 2 puffs by Inhalation route every 4-6 hours as needed PRNcough or wheezing Zofran ODT [facility] [address]-44 8 mg June 30, 2014 1 tablet by Oral route every 8 hours PRN nausea or vomiting Nasonex [facility] [address]-66 50 mcg/actuation Jun 03, 2014 1 sprays by Nasal route 2 times per day in each nostril Diclofenac Sodium [facility] [address]-89 50 MG Orally Three times a day 1 tablet Zanaflex [facility] [address]-77 4 MG Orally every 8 hrs September 19, 2014 1 tablet as needed Procedures Procedure Coding System Code Date [facility] VISIT ESTABLISHED PATIENT CPT-4 G0467 Feb 27, 2015 Office Visit, Est Pt., Level 3 CPT-4 23299 Feb 27, 2015 URINALYSIS, AUTO, W/O SCOPE CPT-4 79635 Feb 27, 2015 Vital Signs Date/Time: Feb 27, 2015 Temperature 97.5 F Weight 134.1 lbs Height 63 in BMI 23.75 Index Blood Pressure Diastolic 68 mmHg Blood Pressure Systolic 102 mmHg Cardiac Monitoring Heart Rate 88 bpm Results No Known Results Summary Purpose eClinicalWorks Submission
--- OUTSIDE RECORDS SUMMARY | 2018-02-13 04:15 | XMS REPORT ---
Author Author NICHELLE VALENZULEA Organization [employer] Address Unknown Phone Unavailable Care Team Providers Care Ride Operator Name Role Phone NICHELLE VALENZUELA Unavailable [...]
--- OUTSIDE RECORDS SUMMARY | 2018-02-13 04:15 | XMS REPORT ---
Author Author NICHELLE VALENZUELA Organization [employer] Address Unknown Phone Unavailable Care Team Providers Care Accounting Coordinator Name Role Phone NICHELLE VALENZUELA Unavailable Allergies [...]
--- OUTSIDE RECORDS SUMMARY | 2018-02-13 04:16 | XMS REPORT ---
Author Author NADIYA CARMONA Organization [facility] Address [address] [place] [address] Care Team Providers Care Computing Tutor Name Role Phone NADIYA CARMONA Unavailable PROBLEMS Type Condition ICD9-CM Code [id number] Code Onset Dates Condition Status SNOMED Code Problem Asthma J45.909 Active 449365390 Problem Reactive depression F32.9 Active 74633116 Problem Secondary hypertension I15.9 Active 16574194 Problem Open bite of left hand, initial encounter S61.452A Active 404732379 Problem Bitten by cat, initial encounter W55.01XA Active 309810363 Problem Moderate persistent asthma with exacerbation J45.41 Active 081091553 Problem Bronchitis J40 Active 52396793 Problem Simple chronic bronchitis J41.0 Active 21200258 Problem Recurrent major depressive disorder, in full remission F33.42 Active 056569993 Problem Renal failure N19 Active 85374202 Problem Joint pain of left hip on movement M25.552 Active 262815383 Problem Hypercholesterolemia E78.00 Active 85598823 Problem Environmental allergies Z91.09 Active 735977000 Problem PVD (peripheral vascular disease) I73.9 Active 603034361 Problem Diabetes mellitus E11.9 Active 96642308 Problem Proteinuria R80.9 Active 23471258 Problem Insomnia G47.00 Active 310058388 Problem Neuropathy G62.9 Active 769437437 Problem GERD (gastroesophageal reflux disease) K21.9 Active 472144986 ALLERGIES No Information ENCOUNTERS Encounter Location Date Diagnosis [facility] [id number] [address] Sep, [facility] [id number] [address] August, Neuropathy G62.9 [facility] [id number] [address] August, Open bite of left hand, initial encounter S61.452A ; Encounter for immunization Z23 and Bitten by cat, initial encounter W55.01XA [place] [address] [address]- [address] Jul, Environmental allergies Z91.09 [place] [address] 88881- 8620 Jun, [place] [address] 6[address]23- 5503 Jun, Simple chronic bronchitis J41.0 ; PVD (peripheral vascular disease) I73.9 and Recurrent major depressive disorder, in full remission F33.42 [facility] [address] [id number] Jun, 2017 Dental examination Z01.20 [facility] [address] [address] Jun, Moderate persistent asthma with exacerbation J45.41 [place] [address] 8[address]11- 4214 May, Neuropathy G62.9 and Diabetes mellitus E11.9 [place] [address] 4[address]- 3564 Apr, [facility] [address] [address] Apr, Cough R05 [place] [address] [address]- 5136 Feb, [place] [address] 56696- 9968 Feb, [place] [address] 59597- 7043 Feb, Diabetes mellitus E11.9 ; Neuropathy G62.9 ; Joint pain of left hip on movement M25.552 and Encounter for immunization Z23 [place] [address] [address]- 58[address] Feb, [facility] [address] [address] Feb, Diabetes mellitus E11.9 [facility] [id number] [place] [address] 63495- 2609 Feb, [facility] [id number] [place] [address] 13093- 3367 Jan, [facility] [id number] [place] [address] 93061- 1081 Jan, Secondary hypertension I15.9 [facility] [id number] [place] [address] 05935- 5521 Dec, Diabetes mellitus E11.9 [facility] [id number] [place] [address] [id number] Nov, Encounter for dental examination Z01.20 [facility] [id number] [place] [address] Oct, Allergic contact dermatitis due to plants, except food L23.7 [facility] [id number] [place] [address] 85716- 4734 Oct, [facility] [id number] [place] [address] 78195- 8357 Oct, Diabetes mellitus E11.9 ; PVD (peripheral vascular disease) I73.9 ; Neuropathy G62.9 ; GERD (gastroesophageal reflux disease) K21.9 ; Insomnia G47.00 ; Environmental allergies Z91.09 ; Secondary hypertension I15.9 ; Reactive depression F32.9 ; Hypercholesterolemia E78.00 and Joint pain of left hip on movement M25.552 [facility] [id number] [place] [address] 33709- 1174 Sep, Diabetes mellitus E11.9 [facility] [id number] [place] [address] 08627- 5491 Sep, Diabetes mellitus E11.9 [facility] [id number] [place] [address] 13171- 7069 Sep, Diabetes mellitus E11.9 [facility] [id number] [place] [address] 05240- 3103 Sep, Neuropathy G62.9 [facility] [id number] [place] [address] 57416- 2992 August, [facility] [address] 92429- 1892 Jul, [facility] [id number] [place] [address] 95032- 3402 Jun, [place] [address] 30723- 3066 Jun, Diabetes mellitus E11.9 ; PVD (peripheral vascular disease) I73.9 ; Neuropathy G62.9 ; Joint pain of left hip on movement M25.552 ; Renal failure N19 ; Asthma J45.909 ; Reactive depression F32.9 ; Pure hypercholesterolemia, unspecified E78.00 and Insomnia G47.00 [place] [id number] [place] [address] 15189- 2251 Jun, Joint pain of left hip on movement M25.552 and Diabetes mellitus E11.9 [facility] [id number] [place] [address] 79366- 0780 Jun, [facility] [id number] [place] [address] 20484 -[address]15 May, Cough R05 and Bronchitis J40 [facility] [id number] [place] [address] 47290- 8470 May, [facility] [id number] [place] [address] 32695- 6721 May, [facility] [id number] [place] [address] 88464- 9254 May, Asthma J45.909 and Bronchitis J40 [place] [id number] [place] [address] 76688- 2453 07 May, 2016 [facility] [address] 94912- 5392 07 May, 2016 Bronchitis J40 [facility] [address] 59627- 3751 06 May, 2016 [facility] [address] 61576- 4847 Apr, Diabetes mellitus E11.9 ; PVD (peripheral vascular disease) I73.9 ; GERD (gastroesophageal reflux disease) K21.9 ; Asthma J45.909 ; Insomnia G47.00 ; Environmental allergies Z91.09 ; Secondary hypertension I15.9 ; Joint pain of left hip on movement M25.552 ; Hypercholesterolemia E78.0 and Reactive depression F32.9 [place] [address] 98402- 8061 Mar, Diabetes mellitus E11.9 ; PVD (peripheral vascular disease) I73.9 and Hypercholesterolemia E78.0 [place] [id number] [place] [address] 63273- 8582 Mar, Diabetes mellitus E11.9 and Hypercholesterolemia E78.0 [place] [address] 48311- 6902 Mar, [place] [address] 66989- 1908 Feb, [place] [id number] [place] [address] 36064- 9128 18 Feb, 2016 [place] [address] 96899- 8365 Feb, [facility] [address] 24303- 7038 31 Jan, 2016 Encounter for immunization Z23 [place] [address] 81174- 1047 Jan, [place] [id number] [place] [address] 24365- 1859 Dec, [place] [address] 43175- 3173 Dec, Diabetes mellitus E11.9 ; PVD (peripheral vascular disease) I73.9 ; GERD (gastroesophageal reflux disease) K21.9 ; Insomnia G47.00 ; Joint pain of left hip on movement M25.552 ; Asthma J45.909 ; Environmental allergies Z91.09 ; Hypercholesterolemia E78.0 ; Essential hypertension I10 and Neuropathy G62.9 [place] [address] 86100- 7725 Nov, [place] [address] 08391- 8743 Nov, [place] [address] 95449- 4401 Oct, PVD (peripheral vascular disease) I73.9 and Diabetes mellitus E11.9 [place] [id number] [place] [address] 09477- 4983 Sep, Diabetes mellitus E11.9 ; PVD (peripheral vascular disease) I73.9 ; Neuropathy G62.9 ; Joint pain of left hip on movement M25.552 ; GERD ( gastroesophageal reflux disease) K21.9 ; Asthma J45.909 ; Insomnia G47.00 ; Secondary hypertension I15.9 and Hypercholesteremia E78.0 [place] [id number] [place] [address] 85786- 6632 August, [place] [id number] [place] [address] 46891- 7409 August, Neuropathy G62.9 [place] [id number] [place] [address] 12350- 0096 August, Neuropathy G62.9 [place] [address] 12449- 5990 Jun, Diabetes mellitus E11.9 ; Joint pain of left hip on movement M25.552 ; PVD (peripheral vascular disease) I73.9 ; Neuropathy G62.9 ; GERD (gastroesophageal reflux disease) K21.9 ; Asthma J45.909 ; Insomnia G47.00 ; Environmental allergies Z91.09 ; HTN (hypertension) I10 and Hypercholesteremia E78.0 [place] [address] 17345- 2104 Jun, [place] [address] 00485- 4534 Jun, [place] [address] 20647- 7868 Jun, [place] [address] 15442- 0051 Apr, [place] [address] 71291- 0332 Apr, [place] [id number] [place] [address] 71099- 4359 Apr, Sinusitis J32.9 [place] [address] 75465- 7277 Apr, Neuropathy G62.9 [place] [id number] [place] [address] 63386- 4678 Mar, [place] [id number] [place] [address] 92128- 7604 Mar, [place] [id number] [place] [address] 10151- 8974 Mar, Diabetes mellitus E11.9 ; PVD (peripheral vascular disease) I73.9 ; Neuropathy G62.9 ; GERD (gastroesophageal reflux disease) K21.9 ; Renal failure N19 ; Asthma J45.909 ; Insomnia G47.00 ; Environmental allergies Z91.09 ; Sinusitis J32.9 ; Cough R05 ; Edema R60.9 ; HTN (hypertension) I10 and Hypercholesterolemia E78.0 [facility] [address] [address] Mar, Dysuria R30.0 ; Vomiting, unspecified R11.10 ; Benign essential hypertension I10 and Dizziness R42 [facility] [address] [address]- 0556 Mar, [facility] [id number] [place] [address] 71449- 7312 Mar, [facility] [id number] [place] [address] 12282- 7287 Feb, [facility] [id number] [place] [address] 05020- 7908 Feb, [facility] [id number] [place] [address] 59002- 4582 Feb, [facility] [id number] [place] [address] 41489- 5836 Feb, [facility] [id number] [place] [address] 23725- 5418 Feb, Joint pain of left hip on movement M25.552 ; Lumbago M54.5 and UTI (urinary tract infection) N39.0 [facility] [address] [address]- 3394 Feb, [facility] [id number] [place] [address] 53467- 4514 Feb, [facility] [id number] [place] [address] 49956- 2795 Jan, [facility] [id number] [place] [address] 85951- 5370 Jan, [facility] [address] [address]- 6433 Jan, [facility] [address] [address]- 2742 Jan, [facility] [address] 30350- 7390 Jan, 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 [facility] [address] 40642- 0251 30 Dec, 2014 Hypertension 401.9 and Diabetes 250.00 [facility] [address] 01692- 6397 Dec, Diabetes 250.00 ; Influenza vaccine administered V04.81 ; Unspecified peripheral vascular disease 443.9 ; Issue of repeat prescriptions V68.1 ; Unspecified hereditary and idiopathic peripheral neuropathy 356.9 ; Insomnia, unspecified 780.52 ; Hypercholesteremia 272.0 ; Pain in joint, site unspecified 719.40 ; Dizziness 780.4 and PCV-13 (PREVNAR) DX V03.82 [place] [address] 37445- 4144 Dec, [facility] [address] 04300- 2730 Dec, [facility] [address] 25152- 9367 Dec, [facility] [address] 39926- 2817 Dec, [facility] [address] 56654- 2022 Dec, [facility] [address] 36571- 3489 Dec, [facility] [address] 58406- 6643 Nov, [facility] [address] 00847- 7647 Nov, Environmental allergies V15.09 ; Sacroiliitis, not elsewhere classified 720.2 and Cough 786.2 [place] [address] [address]- 4101 Oct, [facility] [id number] [address]- 9368 Oct, [facility] [address] [address]- 4399 Oct, [facility] [address] [place] [address] 57327- 3024 Sep, [facility] [address] [place] [address] 69110- 0837 Sep, [facility] [address] [place] [address] 25235- 7296 Sep, Dysuria 788.1 and Diabetes with other specified manifestations, type II or unspecified type, not stated as uncontrolled 250.80 [facility] [id number] [place] [address] 64834- 8568 Sep, [facility] [address] [address]- 6830 Sep, Diabetes with other specified manifestations, type II or unspecified type, not stated as uncontrolled 250.80 [facility] [address] [address]- 5756 Sep, DM w/o complication type II 250.00 ; Unspecified peripheral vascular disease 443.9 ; Pain in joint, pelvic region and thigh 719.45 ; Asthma , unspecified, unspecified status 493.90 ; Hypercholesteremia 272.0 ; Fatigue 780.79 ; UTI (lower urinary tract infection) 599.0 and Essential hypertension 401.9 [facility] [address] [address]- 3625 Sep, [facility] [address] [address]- 6580 Sep, [facility] [address] [address]- 5574 Sep, [facility] [id number] [address]- 6278 August, [facility] [id number] [address]- 2614 August, [facility] [address] [address]- 4273 August, Diabetes with other specified manifestations, type II or unspecified type, not stated as uncontrolled 250.80 [facility] [address] [facility] [id number] [place] [address]- 2756 Jul, Peripheral vascular disease 443.9 [facility] [address] [place] [address], [place] [address]- 2948 Jul, [facility] [address] [address]- 4558 Jul, [facility] [id number] [address]- 1712 Jun, [facility] [address] [address]- 0320 Jun, [facility] [id number] [address]- 6224 Jun, [facility] [id number] [address]- 3085 Jun, [facility] [id number] [address]- 4738 Jun, [facility] [id number] [address]- 1531 Jun, [facility] [address] [address]- 2140 Jun, [facility] [address] [facility] [id number] 9605 Jun, [facility] [id number] [address]- 6136 Jun, [facility] [place] [facility] [address] [id number] [place] [address]- 2320 May, 2014 [facility] [place] [facility] [address] [id number] [place] [address]- 6586 May, 2014 [facility] [place] [facility] [address] [facility] [id number] [place] [address]- 0477 May, 2014 [facility] [place] [facility] [address] [id number] [place] [address]- 8237 May, 2014 [facility] [place] [facility] [address] [id number] [place] [address]- 0095 May, 2014 [facility] [place] [facility] [address] [facility] [id number] [place]- 4956 May, 2014 [facility] [place] [facility] [address] [facility] [id number] [place] [address]- 3068 May, 2014 [facility] [place] [facility] [address] [facility] [id number] [place] [address]- 3718 May, 2014 [facility] [place] [facility] [address] [facility] [id number] [place] [address]- 9058 May, 2014 [facility] [place] [facility] [address] [facility] [id number] [place] [address]- 8950 May, 2014 [facility] [place] [facility] [address] [facility] [id number] [place] [address]- 6586 May, 2014 [facility] [place] [facility] [address] [facility] [id number] [place] [address]- 0896 May, [facility] [place] [facility] [address] [facility] [id number] [place] [address]- 0540 May, 2014 [facility] [place] [facility] [address] [facility] [id number] [place] [address]- 2753 Apr, [facility] [place] [facility] [address] [facility] [id number] [place] [address]- 0843 Apr, [facility] [place] [facility] [address] [id number] [place] [address]- 6925 Apr, [facility] [place] [facility] [address] [id number] [place] [address]- 8145 Apr, [facility] [place] [facility] [address] [id number] [place] [address]- 6665 Apr, [facility] [place] [facility] [address] [id number] [place] [address]- 1920 Apr, [facility] [place] [facility] [address] [id number] [place] [address]- 8693 Apr, [facility] [place] [facility] [address] [id number] [place] [address]- 3993 Apr, [facility] [place] [facility] [address] [id number] [place] [address]- 9901 Mar, [facility] [place] [facility] [address] [id number] [place] [address]- 6003 Mar, [facility] [place] [facility] [address] [id number] [place] [address]- 8531 Mar, [facility] [place] [facility] [address] [id number] [place] [address]- 9979 Mar, [facility] [place] [facility] [address] [id number] [place] [address]- 0394 Mar, [facility] [place] [facility] [address] [id number] [address]- 8225 Mar, [facility] [place] [facility] [address] [id number] [place] 1377 Mar, [facility] [place] [facility] [address] [id number] [place] [address]- 1493 Mar, [facility] [place] [facility] [address] [id number] [place] [address]- 5237 Mar, [facility] [place] [facility] [address] [id number] [address]- 9550 Mar, [facility] [place] [facility] [address] [id number] [place] [address]- 2678 Mar, [facility] [place] [facility] [address] [id number] [place] [address]- 8479 Mar, [facility] [place] [facility] [address] [facility] [id number] [place] [address]- 0845 Mar, [facility] [place] [facility] [address] [id number] [place] [address]- 0742 Mar, [facility] [place] [facility] [address] [id number] [place] [address]- 8630 Feb, [facility] [place] [facility] [address] [id number] [place] [address]- 2893 Feb, [facility] [place] [facility] [address] [id number] [place] [address]- 1787 Feb, [facility] [place] [facility] [address] [id number] [place] [address]- 9715 Feb, [facility] [place] [facility] [address] [id number] [place] [address]- 0076 Feb, [facility] [place] [facility] [address] [facility] [id number] [place] [address] Feb, [facility] [place] [facility] [address] [id number] [place] [address] Feb, [facility] [place] [facility] [address] [id number] [address] Feb, [facility] [place] [facility] [address] [id number] [place] [address] Feb, [facility] [place] [facility] [address] [facility] [id number] [place] [address] Feb, [facility] [place] [facility] [address] [facility] [id number] [place] [address] Feb, [facility] [place] [facility] [address] [id number] [place] [address] Feb, [facility] [place] [facility] [address] [id number] [place] [address] Feb, [facility] [place] [facility] [address] [id number] [place] [address] Feb, [facility] [place] [facility] [address] [id number] [place] [address] Feb, [facility] [place] [facility] [address] [id number] [place] [address] Feb, [facility] [place] [facility] [address] [id number] [place] [address] Jan, [facility] [place] [facility] [address] [id number] [place] [address] Jan, [facility] [place] [facility] [address] [id number] [place] [address] Jan, [facility] [place] [facility] [address] [id number] [place] [address] Jan, [facility] [place] [facility] [address] [id number] [place] [address] Jan, [facility] [place] [facility] [address] [id number] [place] [address] Jan, [facility] [place] [facility] [address] [id number] [place] [address] Jan, [facility] [place] [facility] [address] [id number] [place] [address] Jan, [facility] [place] [facility] [address] [id number] [place] [address] Dec, [facility] [place] [facility] [address] [id number] [place] [address] Dec, [facility] [place] [facility] [address] [id number] [place] [address] Nov, [facility] [place] [facility] [address] [id number] [place] [address] Nov, [facility] [place] [facility] [address] [id number] [place] [address] Nov, [facility] [place] [facility] [address] [id number] [place] [address] Nov, [facility] [place] [facility] [address] [id number] [place] [address] Nov, [facility] [place] [facility] [address] [id number] [place] [address] Nov, [facility] [place] [facility] [address] [id number] [place] [address] Oct, [facility] [place] [facility] [address] [id number] [place] [address] Oct, [facility] [place] [facility] [address] [id number] [place] [address] Oct, [facility] [place] [facility] [address] [id number] [place] [address] Oct, [facility] [place] [facility] [address] [id number] [place] [address] Sep, [facility] [place] [facility] [address] [id number] [place] [address] Sep, [facility] [place] [facility] [address] [id number] [place] [address] Sep, [facility] [place] [facility] [address] [id number] [place] [address] Sep, [facility] [place] [facility] [address] [id number] [place] [address] Sep, [facility] [place] [facility] [address] [id number] [place] [address] Sep, [facility] [place] [facility] [address] [id number] [place] [address] August, [facility] [address] [id number] [place] [address] August, [facility] [place] [facility] [address] [id number] [place] [address] 89[address] August, [facility] [place] [facility] [address] [id number] [place] [address] 59[address] August, [facility] [place] [facility] [address] [id number] [place] [address] 0[address] August, [facility] [place] [facility] [address] [id number] [place] [address] 18[address] August, [facility] [place] [facility] [address] [id number] [place] [address] 4[address] August, [facility] [address] [id number] [place] [address] 4[address] August, [facility] [place] [facility] [address] [id number] [place] [address] August, [facility] [place] [facility] [address] [id number] [place] [address] August, [facility] [place] [facility] [address] [id number] [place] [address] August, [facility] [place] [facility] [address] [id number] [place] [address]- 7[address] August, [facility] [place] [facility] [address] [id number] [place] [address]- 3[address] Jul, [facility] [place] [facility] [address] [id number] [place] [address]- 4467 Jul, [facility] [place] [facility] [address] [id number] [place] [address]- 7538 Jul, [facility] [place] [facility] [address] [id number] [place] [address] 7[address] Jul, [facility] [place] [facility] [address] [id number] [place] [address]- 9836 08 Jul, 2013 [facility] [place] [facility] [address] [id number] [place] [address]- 2829 Jul, [facility] [place] [facility] [address] [id number] [place] [address]- 6[address] Jul, [facility] [place] [facility] [address] [id number] [place] [address]- 6[address] Jul, [facility] [place] [facility] [address] [id number] [place] [address]- 92[address] Jul, [facility] [place] [facility] [address] [id number] [place] [address]- 8219 Jul, [facility] [place] [facility] [address] [id number] [place] [address]- 5488 Jul, [facility] [place] [facility] [address] [id number] [place] [address]- 9794 Jun, [facility] [place] [facility] [address] [id number] [place] [address]- 8812 Jun, [facility] [place] [facility] [address] [id number] [place] [address]- 9315 Jun, [facility] [place] [facility] [address] [id number] [place] [address]- 0947 Jun, [facility] [place] [facility] [address] [id number] [place] [address]- 1113 Jun, [facility] [place] [facility] [address] [id number] [place] [address]- 9[address] Jun, [facility] [place] [facility] [address] [id number] [place] [address]- 6738 Jun, [facility] [place] [facility] [address] [id number] [place] [address]- 0059 Jun, [facility] [place] [facility] [address] [id number] [place] [address]- 8863 Jun, [facility] [place] [facility] [address] [id number] [place] [address]- 9012 May, [facility] [place] [facility] [address] [id number] [place] [address]- 8499 May, [facility] [place] [facility] [address] [facility] [id number] [place] [address]- 5651 May, [facility] [place] [facility] [address] [id number] [place] [address]- 6880 Apr, [facility] [place] [facility] [address] [id number] [place] [address]- 4350 Apr, [facility] [place] [facility] [address] [id number] [place] [address]- 9381 Apr, [facility] [place] [facility] [address] [facility] [id number] [place] [address]- 8581 Apr, [facility] [place] [facility] [address] [facility] [id number] [place] [address]- 0813 Apr, [facility] [place] [facility] [address] [facility] [id number] [place] [address]- 3017 Apr, [facility] [place] [facility] [address] [facility] [id number] [place] [address]- 2188 Apr, [facility] [place] [facility] [address] [facility] [id number] [place] [address]- 1358 Apr, [facility] [place] [facility] [address] [id number] [place] [address]- 5209 Mar, [facility] [place] [facility] [address] [id number] [place] [address]- 8364 Mar, [facility] [place] [facility] [address] [facility] [id number] [place] [address]- 6357 Feb, [facility] [place] [facility] [address] [facility] [id number] [place] [address]- 7594 Feb, [facility] [place] [facility] [address] [id number] [place] [address]- 0969 31 Jan, 2012 [facility] [place] [facility] [address] [id number] [place] [address]- 0255 31 Jan, 2012 [facility] [place] [facility] [address] [id number] [place] [address]- 9280 28 Jan, 2012 [facility] [place] [facility] [address] [id number] [place] [address]- 1057 28 Jan, 2012 [facility] [place] [facility] [address] [id number] [place] [address]- 7937 24 Jan, 2012 [facility] [place] [facility] [address] [id number] [place] [address]- 7641 24 Jan, 2012 [facility] [place] [facility] [address] [id number] [place] [address]- 5453 Jan, 2012 [facility] [place] [facility] [address] [id number] [place] [address]- 3336 21 Jan, 2012 [facility] [place] [facility] [address] [id number] [place] [address]- 1859 17 Jan, 2012 [facility] [place] [facility] [address] [id number] [place] [address]- 8824 17 Jan, 2012 [facility] [place] [facility] [address] [id number] [place] [address]- 0258 14 Jan, 2012 [facility] [place] [facility] [address] [id number] [place] [address]- 3391 14 Jan, 2012 [facility] [place] [facility] [address] [id number] [place] [address]- 2181 10 Jan, 2012 [facility] [place] [facility] [address] [id number] [place] [address]- 1438 10 Jan, 2012 [facility] [place] [facility] [address] [id number] [place] [address]- 7939 10 Jan, 2012 [facility] [place] [facility] [address] [id number] [place] [address]- 0412 Jan, [facility] [place] [facility] [address] [id number] [place] [address]- 6048 Jan, 2012 [facility] [place] [facility] [address] [id number] [place] [address]- 5066 Jan, [facility] [place] [facility] [address] [id number] [place] [address]- 1264 Jan, 2012 [facility] [place] [facility] [address] [id number] [place] [address]- 6759 Jan, 2012 [facility] [place] [facility] [address] [id number] [place] [address]- 3294 Jan, [facility] [place] [facility] [address] [id number] [place] [address]- 6444 Jan, [facility] [place] [facility] [address] [id number] [place] [address]- 8102 Jan, [facility] [place] [facility] [address] [id number] [place] [address]- 0342 Dec, [facility] [place] [facility] [address] [id number] [place] [address]- 9965 Dec, [facility] [place] [facility] [address] [id number] [address]- 3844 Nov, [facility] [place] [facility] [address] [id number] [address]- 0436 Oct, [facility] [place] [facility] [address] [id number] [address]- 1032 Oct, [facility] [place] [facility] [address] [id number] [place] [address]- 1954 Oct, [facility] [place] [facility] [address] [id number] [address]- 3495 Oct, [facility] [place] [facility] [address] [id number] [place] [address]- 3468 Oct, [facility] [place] [facility] [address] [id number] [place] [address]- 4740 Oct, [facility] [address] [id number] [place] [address]- 0431 Sep, [facility] [place] [facility] [address] [id number] [place] [address]- 5653 Sep, [facility] [address] [id number] [place] [address]- 4459 Sep, [facility] [place] [facility] [address] [id number] [place] [address]- 2827 Jul, [facility] [address] [id number] [place] [address]- 1664 Jul, [facility] [place] [facility] [address] [id number] [place] [address]- 9261 Jul, [facility] [address] [id number] [place] [address]- 7773 Jun, [facility] [place] [facility] [address] [id number] [place] [address]- 8176 Jun, [facility] [place] [facility] [address] [id number] [place] [address]- 0485 Jun, [facility] [place] [facility] [address] [id number] [place] [address]- 3120 Jun, [facility] [place] [facility] [address] [id number] [place] [address]- 3054 Jun, [facility] [place] [facility] [address] [id number] [place] [address]- 8772 Jun, [facility] [place] [facility] [address] [id number] [place] [address]- 5923 May, [facility] [place] [facility] [address] [id number] [place] [address]- 7658 May, [facility] [place] [facility] [address] [id number] [place] [address]- 0531 Apr, [facility] [place] [facility] [address] [id number] [place] [address]- 9776 29 Apr, 2012 [facility] [address] [id number] [place] [address]- 7627 Apr, [facility] [address] [id number] [place] [address]- 0402 Apr, [facility] [address] [id number] [place] [address]- 6818 Apr, [facility] [address] [id number] [place] [address]- 9654 Mar, [facility] [address] [id number] [place] [address]- 3534 Mar, [facility] [address] [id number] [place] [address]- 9890 Mar, [facility] [address] [id number] [place] [address]- 5246 Mar, [facility] [address] [id number] [place] [address]- 2378 Mar, [facility] [address] [id number] [place] [address]- 7922 14 Mar, 2012 [facility] [address] [id number] [place] [address]- 3186 Mar, [facility] [address] [id number] [place] [address]- 3421 Mar, [facility] [address] [id number] [place] [address]- 4045 05 Mar, 2012 [facility] [place] [facility] [address] [id number] [place] [address]- 4909 05 Mar, 2012 [facility] [address] [id number] [place] [address]- 1455 30 Feb, 2012 [facility] [address] [id number] [address]- 1931 Feb, [facility] [place] [facility] [address] [id number] [place] [address]- 0475 Feb, [facility] [place] [facility] [address] [id number] [place] [address]- 8576 Feb, [facility] [place] [facility] [address] [id number] [place] [address]- 9635 Feb, [facility] [place] [facility] [address] [id number] [place] [address]- 9782 Feb, [facility] [place] [facility] [address] [id number] [place] [address]- 2585 Feb, [facility] [place] [facility] [address] [id number] [place] [address]- 5313 Feb, [facility] [place] [facility] [address] [id number] [place] [address]- 5609 Feb, [facility] [place] [facility] [address] [id number] [place] [address]- 5268 Feb, [facility] [place] [facility] [address] [id number] [place] [address]- 1481 Jan, [facility] [place] [facility] [address] [id number] [place] [address]- 0548 Jan, [facility] [place] [facility] [address] [id number] [place] [address]- 9398 Jan, [facility] [place] [facility] [address] [id number] [address]- 8266 Jan, [facility] [place] [facility] [address] [id number] [place] [address]- 3410 Dec, [facility] [place] [facility] [address] [id number] [place] [address] Dec, [facility] [place] [facility] [address] [id number] [place] [address]- 4852 18 Dec, 2011 [facility] [place] [facility] [address] [id number] [place] [address]- 8624 18 Sep, 2011 [facility] [address] [id number] [place] [address]- 4216 17 Sep, 2011 [facility] [place] [facility] [address] [id number] [place] [address]- 2606 14 Dec, 2011 [facility] [address] [id number] [place] [address]- 0386 13 Dec, 2011 [facility] [place] [facility] [address] [id number] [place] [address]- 8257 13 Dec, 2011 [facility] [address] [id number] [place] [address]- 0542 06 Dec, 2011 [facility] [address] [id number] [place] [address]- 6943 31 Nov, 2011 [facility] [place] [facility] [address] [id number] [place] [address]- 6976 30 Nov, 2011 [facility] [address] [id number] [place] [address]- 0192 Nov, [facility] [place] [facility] [address] [id number] [place] [address]- 6755 Nov, [facility] [address] [id number] [place] [address]- 8317 Sep, [facility] [place] [facility] [address] [id number] [place] [address]- 0411 Sep, [facility] [place] [facility] [address] [id number] [place] [address]- 9373 Sep, [facility] [place] [facility] [address] [id number] [place] [address]- 9973 August, [facility] [place] [facility] [address] [id number] [place] [address]- 2939 August, [facility] [place] [facility] [address] [id number] [place] [address]- 8440 August, [facility] [address] [id number] [place] [address]- 6764 August, [facility] [place] [facility] [address] [id number] [place] [address]- 8585 August, [facility] [place] [facility] [address] [id number] [place] August, [facility] [place] [facility] [address] [id number] [place] [address]- 4550 August, [facility] [place] [facility] [address] [id number] [place] [address]- 0574 August, [facility] [place] [facility] [address] [id number] [place] [address]- 8805 August, [facility] [place] [facility] [address] [id number] [place] [address]- 9115 Jul, [facility] [place] [facility] [address] [id number] [place] [address]- 5048 Jun, [facility] [place] [facility] [address] [id number] [place] [address]- 7265 Jun, [facility] [place] [facility] [address] [id number] [place] [address]- 5209 Jun, [facility] [place] [facility] [address] [id number] [place] [address]- 5427 Jun, [facility] [place] [facility] [address] [id number] [place] [address]- 3295 Jun, [facility] [place] [facility] [address] [id number] [place] [address]- 1737 Jun, [facility] [place] [facility] [address] [id number] [place] [address]- 5366 Jun, [facility] [place] [facility] [address] [id number] [place] [address]- 0985 Jun, [facility] [place] [facility] [address] [id number] [place] [address]- 6710 27 May, 2011 [facility] [address] [id number] [place] [address]- 4916 21 May, 2011 [facility] [place] [facility] [address] [id number] [place] [address] 2546 20 May, 2011 [facility] [address] [id number] [place] [address] 2546 19 May, 2011 [facility] [address] [id number] [place] [address] 2546 17 May, 2011 [facility] [address] [id number] [place] [address]- 6156 16 May, 2011 [facility] [address] [id number] [place] [address]- 3186 14 May, 2011 [facility] [address] [id number] [place] [address]- 2334 Apr, [facility] [address] [id number] [place] [address]- 4758 16 Apr, 2011 [facility] [address] [id number] [place] [address]- 2061 13 Apr, 2011 [facility] [address] [id number] [place] [address]- 4240 11 Apr, 2011 [facility] [address] [id number] [place] [address]- 2881 Apr, [facility] [address] [id number] [place] [address] 2546 Apr, [facility] [place] [facility] [address] [id number] [place] [address]- 4636 05 Apr, 2011 [facility] [place] [facility] [address] [id number] [place] [address] 2546 03 Apr, 2011 [facility] [address] [id number] [place] [address]- 7753 Mar, [facility] [place] [facility] [address] [id number] [place] [address]- 3065 20 Mar, 2011 [facility] [place] [facility] [address] [id number] [place] [address]- 6748 28 Feb, 2011 [facility] [place] [facility] [address] [id number] [place] 0173 17 Feb, 2011 [facility] [place] [facility] [address] [id number] [place] [address]- 7083 17 Feb, 2011 [facility] [place] [facility] [address] [id number] [place] [address]- 8398 16 Feb, 2011 [facility] [place] [facility] [address] [id number] [place] [address]- 0235 16 Feb, 2011 [facility] [place] [facility] [address] [id number] [place] [address]- 5145 24 Jan, 2011 [facility] [place] [facility] [address] [id number] [place] [address]- 1546 12 Nov, 2010 [facility] [place] [facility] [address] [id number] [place] [address]- 4743 14 Sep, 2010 [facility] [place] [facility] [address] [id number] [place] [address]- 1021 August, [facility] [place] [facility] [address] [id number] [place] [address]- 5998 Jun, [facility] [place] [facility] [address] [id number] [place] [address]- 6709 14 May, 2010 [facility] [place] [facility] [address] [id number] [place] [address]- 7426 18 Apr, 2010 [facility] [place] [facility] [address] [id number] [place] [address]37 22 Mar, 2010 [facility] [place] [facility] [address] [id number] [place] [address] 14 Mar, 2010 [facility] [place] [facility] [address] [id number] [address] 14 Mar, 2010 [facility] [id number] [address] Feb, [facility] [id number] [address] Feb, [facility] [id number] [address] Jan, [facility] [id number] [address] Jan, [facility] [id number] [place] [address] Jan, [facility] [id number] [address] Oct, [facility] [id number] [address] Oct, [facility] [id number] [address] Apr, [facility] [id number] [address] Mar, [facility] [id number] [address] Mar, [facility] [id number] [address] Jan, [facility] [id number] [address] Dec, IMMUNIZATIONS No Known Immunizations SOCIAL HISTORY Never Assessed REASON FOR VISIT Requests return call PLAN OF CARE VITAL SIGNS MEDICATIONS Unknown [...]
--- OUTSIDE RECORDS SUMMARY | 2018-02-13 04:18 | XMS REPORT ---
Author Author NICHELLE VALENZUELA Organization [facility] Address [address] [place] [address] Care Team Providers Care Glove Examiner Name Role Phone ZULEIKA VALENZUELANETTE Unavailable PROBLEMS Type Condition ICD9-CM Code OHP88-LU Code Onset Dates Condition Status SNOMED Code Problem PVD (peripheral vascular disease) I73.9 Active 637326339 Problem Insomnia G47.00 Active 038952478 Problem Diabetes mellitus E11.9 Active 41342695 Problem Encounter for dental examination Z01.20 Active 328937860 Problem Bronchitis J40 Active 60217970 Problem Asthma J45.909 Active 716712715 Problem GERD (gastroesophageal reflux disease) K21.9 Active 737739411 Problem Reactive depression F32.9 Active 77732736 Problem Secondary hypertension I15.9 Active 81791671 Problem Renal failure N19 Active 26492177 Problem Joint pain of left hip on movement M25.552 Active 156057064 Problem Hypercholesterolemia E78.00 Active 65221375 Problem Proteinuria R80.9 Active 07126037 Problem Environmental allergies Z91.09 Active 887978651 Problem Neuropathy G62.9 Active 242056678 ALLERGIES Substance Reaction Event Type Date Status Stadol Unknown Drug Allergy Apr, Active Glucotrol Unknown Drug Allergy Apr, Active SOCIAL HISTORY No smoking Hx information available PLAN OF CARE Activity Details Follow Up 3 Months Reason:dm VITAL SIGNS Height 63 in 2016-04-23 Weight 138.0 lbs 2016-04-23 Temperature 98.6 degrees Fahrenheit 2016-04-23 Heart Rate 74 bpm 2016-04-23 Respiratory Rate 20 2016-04-23 BMI 24.44 kg/m2 2016-04-23 Blood pressure systolic 130 mmHg 2016-04-23 Blood pressure diastolic 84 mmHg 2016-04-23 MEDICATIONS Medication Instructions Dosage Frequency Start Date End Date Duration Status Percocet 5-325 MG Orally every 6 hrs 1 tablet as needed 6h Feb, Active Metformin HCl 1000MG Orally Twice a day 1 tablet with meals 12h Active Pen [place] 31G X 6 MM as directed 12h Feb, Active Diclofenac Sodium 50MG DR Orally Three times a day 1 tablet 8h Active Hydrochlorothiazide 50 mg Orally Once a day 1 tablet 24h Mar, Active Flonase 50 MCG/ACT Nasally Once a day 1 spray in each nostril 24h 25 Feb, 2015 Active Levemir 100 UNIT/ML Subcutaneous 2 times a day inject 25 unit in am and pm 12h May, Active Norvasc 5 mg Orally 2 times a day 1 tablet by Oral route 2 times per day 12h Active Vytorin 10-40 MG Orally Once a day 1 tablet 24h Active Gabapentin 300 MG Orally 3 times a day 1 capsule by Oral route 3 times per day 8h 90 Active Celexa 20 mg Orally Once a day 1 tablet 24h Apr, 30 day(s) Active amitriptyline 150 mg by oral route Once a day 1 tablet 24h Jun, Active Atenolol 100 MG orally once 1 tablet by Oral route 1 time per day Jun Active RESULTS No Results PROCEDURES Procedure Date Ordered Related Diagnosis Body Site [facility] VISIT ESTABLISHED PATIENT Apr 23, 2016 Office Visit, Est Pt., Level 4 Apr 23, 2016 IMMUNIZATIONS No Known Immunizations
--- OUTSIDE RECORDS SUMMARY | 2018-02-13 04:18 | XMS REPORT ---
Author Author NICHELLE VALENZUELA [facility] eClinical[employer] Address Unknown Phone Unavailable Care Team Providers Care Differential Specialist Name Role Phone NICHELLE VALENZUELA Unavailable Allergies [...] Start Date End Date Status Dosage Diclofenac Potassium [facility] [address]-39 50 MG Orally Twice a day Feb 24, 2015 Mar 26, 2015 1 tablet Results No Known Results Summary Purpose eClinicalWorks Submission
--- OUTSIDE RECORDS SUMMARY | 2018-02-13 04:18 | XMS REPORT ---
Author Author NICHELLE VALENZUELA [facility] eClinicalWorks Address Unknown Phone Unavailable Care Team Providers Care Health Information Coder Name Role Phone NICHELLE VALENZUELA Unavailable Allergies [...]
--- OUTSIDE RECORDS SUMMARY | 2018-02-13 04:18 | XMS REPORT ---
Author Author NICHELLE VALENZUELA Organization [facility] Address [address] [place] [address] Care Team Providers Care Dent Remover Name Role Phone VALENZUELAZULEIKANICHELLE Unavailable PROBLEMS Type Condition ICD9-CM Code IEC48-ZS Code Onset Dates Condition Status SNOMED Code Problem Renal failure N19 Active 69160405 Problem Joint pain of left hip on movement M25.552 Active 159729216 Problem GERD (gastroesophageal reflux disease) K21.9 Active 602489716 Assessment Diabetes mellitus E11.9 Mar, Active 47472023 Problem Environmental allergies Z91.09 Active 176928107 Problem Insomnia G47.00 Active 728395989 Problem Asthma J45.909 Active 009214316 Problem Hypercholesterolemia E78.0 Active 06402981 Problem 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
--- OUTSIDE RECORDS SUMMARY | 2018-02-13 04:18 | XMS REPORT ---
Author Author NICHELLE VALENZUELA Organization [facility] Address [address] [place] [address] Care Team Providers Care Skidder Name Role Phone ZULEIKA VALENZUELANETTE Unavailable PROBLEMS Type Condition ICD9-CM Code ADU81-BT Code Onset Dates Condition Status SNOMED Code Problem Renal failure N19 Active 46261285 Problem Joint pain of left hip on movement M25.552 Active 265159546 Problem GERD (gastroesophageal reflux disease) K21.9 Active 269522107 Assessment Diabetes mellitus E11.9 Mar, Active 32446933 Problem Environmental allergies Z91.09 Active 090307037 Problem Insomnia G47.00 Active 150172633 Problem Asthma J45.909 Active 932380934 Problem Hypercholesterolemia E78.0 Active 67626100 Problem 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 598526578 Problem Neuropathy G62.9 Active 214813050 Problem Proteinuria R80.9 Active 15500134 Problem Diabetes mellitus E11.9 Active 31342254 Problem PVD (peripheral vascular disease) I73.9 Active 646854624 ALLERGIES Unknown Allergies SOCIAL HISTORY No smoking Hx information available PLAN OF CARE Activity Details Pending Test A1C Pending Test CBC Pending Test LIPID PANEL Pending Test CMP ,Reason: VITAL SIGNS MEDICATIONS Unknown Medications RESULTS Name Result Date Reference Range A1C 2016-04-03 Hemoglobin A1c 5.8 4.8-5.6 CBC 2016-04-03 WBC 5.3 3.4-10.8 RBC 4.59 3.77-5.28 Hemoglobin 13.5 11.1-15.9 Hematocrit 40.1 34.0-46.6 MCV 87 79-97 MCH 29.4 26.6-33.0 MCHC 33.7 31.5-35.7 RDW 12.9 12.3-15.4 Platelets 289 150-379 Neutrophils 64 Lymphs 21 Monocytes 9 Eos 5 Basos 1 Neutrophils (Absolute) 3.4 1.4-7.0 Lymphs (Absolute) 1.1 0.7-3.1 Monocytes(Absolute) 0.5 0.1-0.9 Eos (Absolute) 0.3 0.0-0.4 Baso (Absolute) 0.0 0.0-0.2 Immature Granulocytes 0 Immature Grans (Abs) 0.0 0.0-0.1 LIPID PANEL 2016-04-03 Cholesterol, Total 139 100-199 Triglycerides 106 0-149 HDL Cholesterol 44 >39 VLDL Cholesterol Dev 21 5-40 LDL Cholesterol Calc 74 0-99 CMP 2016-04-03 Glucose, Serum 84 65-99 BUN 11 8-27 Creatinine, Serum 0.70 0.57-1.00 eGFR If NonAfricn Am 90 >59 eGFR If Africn Am 104 >59 BUN/Creatinine Ratio 16 11-26 Sodium, Serum 142 134-144 Potassium, Serum 4.3 3.5-5.2 Chloride, Serum 100 96-106 Carbon Dioxide, Total 27 18-29 Calcium, Serum 9.3 8.7-10.3 Protein, Total, Serum 6.3 6.0-8.5 Albumin, Serum 4.4 3.6-4.8 Globulin, Total 1.9 1.5-4.5 A/G Ratio 2.3 1.1-2.5 Bilirubin, Total 0.3 0.0-1.2 Alkaline Phosphatase, S 64 39-117 AST (SGOT) 35 0-40 ALT (SGPT) 31 0-32 PROCEDURES Procedure Date Ordered Related Diagnosis Body Site GLYCATED HEMOGLOBIN TEST Apr 03, 2016 [facility] Apr 03, 2016 VENIPUNCT, ROUTINE* Apr 03, 2016 IMMUNIZATIONS No Known Immunizations
--- OUTSIDE RECORDS SUMMARY | 2018-02-13 04:18 | XMS REPORT ---
Author Author NICHELLE Cortes Organization [facility] Address [address] [place] [address] Care Team Providers Care Process Engineering Manager Name Role Phone rodgerNICHELLE Mahmood Unavailable PROBLEMS Type Condition ICD9-CM Code WBN18-AR Code Onset Dates Condition Status SNOMED Code Problem Insomnia G47.00 Active 168966896 Problem Asthma J45.909 Active 740422202 Problem GERD (gastroesophageal reflux disease) K21.9 Active 249689486 Problem Simple chronic bronchitis J41.0 Active 71511807 Problem Recurrent major depressive disorder, in full remission F33.42 Active 284990171 Problem Reactive depression F32.9 Active 13458468 Problem Secondary hypertension I15.9 Active 49923066 Problem Moderate persistent asthma with exacerbation J45.41 Active 988219081 Problem Bronchitis J40 Active 71575127 Problem Hypercholesterolemia E78.00 Active 52302915 Problem Environmental allergies Z91.09 Active 772842396 Problem Proteinuria R80.9 Active 09994796 Problem Neuropathy G62.9 Active 687640372 Problem Renal failure N19 Active 01286348 Problem PVD (peripheral vascular disease) I73.9 Active 856940625 Problem Joint pain of left hip on movement M25.552 Active 970679338 Problem Diabetes mellitus E11.9 Active 58393567 ALLERGIES No Information ENCOUNTERS Encounter Location Date Diagnosis [facility] [address] [id number] [address] Jun, [facility] [id number] [place] [address] 82947- 9702 14 Jun, 2017 Simple chronic bronchitis J41.0 ; PVD (peripheral vascular disease) I73.9 and Recurrent major depressive disorder, in full remission F33.42 [facility] [address] [id number] [id number] 13 Jun, 2017 Dental examination Z01.20 [facility] [id number] [place] [address] 82905 -5232 Jun, Moderate persistent asthma with exacerbation J45.41 [facility] [id number] [place] [address] 21889- 0810 19 May, 2017 Neuropathy G62.9 and Diabetes mellitus E11.9 [facility] [address] 67389- 1713 Apr, [facility] [id number] [place] [address] 66820 -9102 Apr, Cough R05 [facility] [address] 95178- 4249 Feb, [facility] [address] 80156- 6926 Feb, [facility] [address] 18871- 6575 Feb, Diabetes mellitus E11.9 ; Neuropathy G62.9 ; Joint pain of left hip on movement M25.552 and Encounter for immunization Z23 [facility] [id number] [place] [address] 88256- 1564 Feb, [facility] [address] 08710- 7700 Feb, Diabetes mellitus E11.9 [facility] [id number] [place] [address] 73364- 3097 Feb, [facility] [id number] [place] [address] 62818- 1275 Jan, [facility] [address] 14629- 8309 Jan, Secondary hypertension I15.9 [facility] [id number] [place] [address] 47714- 1020 Dec, Diabetes mellitus E11.9 [facility] [address] [id number] [id number] Nov, Encounter for dental examination Z01.20 [facility] [id number] [place] [address] 07987 -6599 Oct, Allergic contact dermatitis due to plants, except food L23.7 [facility] [id number] [place] [address] 07774- 4246 Oct, [facility] [id number] [place] [address] 27866- 6594 Oct, Diabetes mellitus E11.9 ; PVD (peripheral vascular disease) I73.9 ; Neuropathy G62.9 ; GERD (gastroesophageal reflux disease) K21.9 ; Insomnia G47.00 ; Environmental allergies Z91.09 ; Secondary hypertension I15.9 ; Reactive depression F32.9 ; Hypercholesterolemia E78.00 and Joint pain of left hip on movement M25.552 [facility] [id number] [place] [address] 06873- 7007 Sep, Diabetes mellitus E11.9 [facility] [id number] [place] [address] 91154- 9591 Sep, Diabetes mellitus E11.9 [facility] [id number] [place] [address] 65339- 5170 Sep, Diabetes mellitus E11.9 [facility] [id number] [place] [address] 62084- 3698 Sep, Neuropathy G62.9 [facility] [id number] [place] [address] 24059- 9885 August, [facility] [id number] [place] [address] 15863- 6301 Jul, [facility] [id number] [place] [address] 79554- 4980 Jun, [facility] [id number] [place] [address] 58974- 0622 Jun, Diabetes mellitus E11.9 ; PVD (peripheral vascular disease) I73.9 ; Neuropathy G62.9 ; Joint pain of left hip on movement M25.552 ; Renal failure N19 ; Asthma J45.909 ; Reactive depression F32.9 ; Pure hypercholesterolemia, unspecified E78.00 and Insomnia G47.00 [facility] [address] 65077- 8531 Jun, Joint pain of left hip on movement M25.552 and Diabetes mellitus E11.9 [facility] [address] 37368- 2382 Jun, [facility] [address] 65607 -5540 May, Cough R05 and Bronchitis J40 [place] [address] 22114- 3500 May, [place] [address] 97260- 4327 May, [place] [address] 70760- 6870 May, Asthma J45.909 and Bronchitis J40 [place] [address] 88800- 0296 May, [place] [address] 42572- 8083 May, Bronchitis J40 [place] [address] 53989- 5849 May, [place] [address] 57746- 5908 Apr, Diabetes mellitus E11.9 ; PVD (peripheral vascular disease) I73.9 ; GERD (gastroesophageal reflux disease) K21.9 ; Asthma J45.909 ; Insomnia G47.00 ; Environmental allergies Z91.09 ; Secondary hypertension I15.9 ; Joint pain of left hip on movement M25.552 ; Hypercholesterolemia E78.0 and Reactive depression F32.9 [place] [address] 62206- 6021 14 Mar, 2016 Diabetes mellitus E11.9 ; PVD (peripheral vascular disease) I73.9 and Hypercholesterolemia E78.0 [place] [address] 36347- 6585 14 Mar, 2016 Diabetes mellitus E11.9 and Hypercholesterolemia E78.0 [place] [address] 99678- 7902 Mar, [place] [address] 09336- 3714 Feb, [place] [address] 81336- 6503 Feb, [place] [address] 62429- 7141 Feb, [place] [address] 27430- 0825 Jan, Encounter for immunization Z23 [place] [address] 91378- 8982 Jan, [place] [address] 27221- 2657 07 Dec, 2015 [place] [address] 66672- 8495 06 Dec, 2015 Diabetes mellitus E11.9 ; PVD (peripheral vascular disease) I73.9 ; GERD (gastroesophageal reflux disease) K21.9 ; Insomnia G47.00 ; Joint pain of left hip on movement M25.552 ; Asthma J45.909 ; Environmental allergies Z91.09 ; Hypercholesterolemia E78.0 ; Essential hypertension I10 and Neuropathy G62.9 [place] [address] 19761- 6870 Nov, [place] [address] [place] [address]- 2826 Nov, [place] [id number] [place] [address] 17185- 2605 Oct, PVD (peripheral vascular disease) I73.9 and Diabetes mellitus E11.9 [place] [id number] [place] [address] 97504- 3273 Sep, Diabetes mellitus E11.9 ; PVD (peripheral vascular disease) I73.9 ; Neuropathy G62.9 ; Joint pain of left hip on movement M25.552 ; GERD ( gastroesophageal reflux disease) K21.9 ; Asthma J45.909 ; Insomnia G47.00 ; Secondary hypertension I15.9 and Hypercholesteremia E78.0 [place] [id number] [place] [address] 34099- 6770 August, [place] [id number] [place] [address] 80566- 6359 August, Neuropathy G62.9 [place] [id number] [place] [address] 44403- 4081 August, Neuropathy G62.9 [place] [id number] [place] [address] 73801- 4381 Jun, Diabetes mellitus E11.9 ; Joint pain of left hip on movement M25.552 ; PVD (peripheral vascular disease) I73.9 ; Neuropathy G62.9 ; GERD (gastroesophageal reflux disease) K21.9 ; Asthma J45.909 ; Insomnia G47.00 ; Environmental allergies Z91.09 ; HTN (hypertension) I10 and Hypercholesteremia E78.0 [place] [id number] [place] [address] 93488- 5575 Jun, [place] [address] 37793- 5567 Jun, [place] [id number] [place] [address] 66244- 3994 Jun, [place] [address] [place] [address] 23220- 7766 Apr, [facility] [id number] [place] [address] 24725- 6336 Apr, [facility] [id number] [place] [address] 44706- 0213 Apr, Sinusitis J32.9 [facility] [address] 35435- 6585 Apr, Neuropathy G62.9 [facility] [id number] [place] [address] 73638- 0608 Mar, [facility] [address] 55558- 6722 Mar, [facility] [id number] [place] [address] 45552- 1811 Mar, Diabetes mellitus E11.9 ; PVD (peripheral vascular disease) I73.9 ; Neuropathy G62.9 ; GERD (gastroesophageal reflux disease) K21.9 ; Renal failure N19 ; Asthma J45.909 ; Insomnia G47.00 ; Environmental allergies Z91.09 ; Sinusitis J32.9 ; Cough R05 ; Edema R60.9 ; HTN (hypertension) I10 and Hypercholesterolemia E78.0 [facility] [id number] [place] [address] 52854 -7224 Mar, Dysuria R30.0 ; Vomiting, unspecified R11.10 ; Benign essential hypertension I10 and Dizziness R42 [facility] [id number] [place] [address] 20240- 6672 Mar, [facility] [address] 80603- 7560 Mar, [facility] [id number] [place] [address] 37443- 6033 Feb, [facility] [address] 52769- 4308 Feb, [facility] [address], [place] [address]- 4369 Feb, [facility] [id number] [place] [address] 48434- 7336 Feb, [facility] [id number] [place] [address] 19580- 4617 Feb, Joint pain of left hip on movement M25.552 ; Lumbago M54.5 and UTI (urinary tract infection) N39.0 [facility] [address], [place] [address]- 4551 Feb, [facility] [id number] [place] [address] 13711- 1765 Feb, [facility] [id number] [place] [address] 51891- 0393 Jan, [facility] [id number] [place] [address] 67559- 4695 Jan, [facility] [id number] [place] [address] 04716- 6193 Jan, [facility] [id number] [place] [address] 78361- 6141 Jan, [facility] [id number] [place] [address] 08005- 2972 Jan, 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 [facility] [address] [place] [address] 96879- 1347 Dec, Hypertension 401.9 and Diabetes 250.00 [facility] [address] [place] [address] 81839- 1042 Dec, Diabetes 250.00 ; Influenza vaccine administered V04.81 ; Unspecified peripheral vascular disease 443.9 ; Issue of repeat prescriptions V68.1 ; Unspecified hereditary and idiopathic peripheral neuropathy 356.9 ; Insomnia, unspecified 780.52 ; Hypercholesteremia 272.0 ; Pain in joint, site unspecified 719.40 ; Dizziness 780.4 and PCV-13 (PREVNAR) DX V03.82 [facility] [id number] [place] [address] 09887- 0818 Dec, [facility] [id number] [place] [address] 67264- 7252 Dec, [facility] [address] 88170- 5381 Dec, [facility] [address] 60576- 5229 Dec, [facility] [address] 02922- 5230 Dec, [facility] [id number] [place] [address] 62210- 6794 Dec, [facility] [address] 91254- 0538 Nov, [facility] [id number] [place] [address] 90859- 5117 Nov, Environmental allergies V15.09 ; Sacroiliitis, not elsewhere classified 720.2 and Cough 786.2 [facility] [id number] [place] [address] 26848- 2650 Oct, [facility] [id number] [place] [address] 58742- 3064 Oct, [facility] [id number] [place] [address] 64111- 4647 Oct, [facility] [id number] [place] [address] 48612- 8672 Sep, [facility] [id number] [place] [address] 57404- 5615 Sep, [facility] [id number] [place] [address] 45107- 8447 Sep, Dysuria 788.1 and Diabetes with other specified manifestations, type II or unspecified type, not stated as uncontrolled 250.80 [facility] [id number] [place] [address] 99241- 5059 Sep, [facility] [id number] [place] [address] 83692- 2928 Sep, Diabetes with other specified manifestations, type II or unspecified type, not stated as uncontrolled 250.80 [facility] [id number] [place] [address] 87705- 7727 Sep, DM w/o complication type II 250.00 ; Unspecified peripheral vascular disease 443.9 ; Pain in joint, pelvic region and thigh 719.45 ; Asthma , unspecified, unspecified status 493.90 ; Hypercholesteremia 272.0 ; Fatigue 780.79 ; UTI (lower urinary tract infection) 599.0 and Essential hypertension 401.9 [place] [id number] [place] [address] 63765- 6360 Sep, [facility] [id number] [place] [address] 11139- 7300 Sep, [facility] [id number] [place] [address] 19410- 8841 Sep, [facility] [id number] [place] [address] 48301- 3151 August, [place] [id number] [place] [address] 51553- 3181 August, [facility] [id number] [place] [address] 53481- 5266 August, Diabetes with other specified manifestations, type II or unspecified type, not stated as uncontrolled 250.80 [facility] [id number] [place] [address] 87379- 6496 Jul, Peripheral vascular disease 443.9 [facility] [id number] [place] [address] 51820- 4563 Jul, [facility] [place] [facility] [address] [id number] [place] [address]- 8144 13 Jul, 2014 [facility] [place] [facility] [address] [id number] [place] [address]- 3611 27 Jun, 2014 [facility] [place] [facility] [address] [id number] [place] [address]- 6870 27 Jun, 2014 [facility] [place] [facility] [address] [id number] [place] [address]- 4122 14 Jun, 2014 [facility] [place] [facility] [address] [id number] [place] [address]- 2624 13 Jun, 2014 [facility] [place] [facility] [address] [id number] [place] [address]- 1741 Jun, [facility] [place] [facility] [address] [facility] [id number] [place] [address]- 9742 Jun, [facility] [place] [facility] [address] [id number] [place] [address]- 0486 Jun, [facility] [place] [facility] [address] [id number] [place] [address]- 9284 Jun, [facility] [place] [facility] [address] [id number] [place] [address]- 3196 04 Jun, 2014 [facility] [place] [facility] [address] [facility] [id number] [place] [address]- 7154 May, [facility] [place] [facility] [address] [id number] [place] [address]- 1364 May, [facility] [place] [facility] [address] [id number] [place] [address]- 1954 24 May, 2014 [facility] [place] [facility] [address] [id number] [place] [address]- 9178 May, [facility] [place] [facility] [address] [id number] [place] [address]- 0084 May, [facility] [place] [facility] [address] [id number] [place] [address]- 4713 May, [facility] [place] [facility] [address] [id number] [place] [address]- 0903 May, [facility] [place] [facility] [address] [id number] [place] [address]- 4399 May, 2014 [facility] [place] [facility] [address] [id number] [place] [address]- 5353 May, [facility] [place] [facility] [address] [id number] [place] [address]- 7042 May, [facility] [place] [facility] [address] [id number] [place] [address]- 5890 May, [facility] [place] [facility] [address] [id number] [place] [address]- 6383 May, [facility] [place] [facility] [address] [id number] [place] [address]- 0357 May, [facility] [place] [facility] [address] [id number] [place] [address]- 5987 Apr, [facility] [place] [facility] [address] [id number] [place] [address]- 8736 Apr, [facility] [place] [facility] [address] [facility] [id number] [place] [address]- 0499 Apr, [facility] [place] [facility] [address] [id number] [place] [address]- 9275 Apr, [facility] [place] [facility] [address] [id number], [place] [address]- 0003 Apr, [facility] [place] [facility] [address] [id number] [place] [address]- 7839 Apr, [facility] [place] [facility] [address] [id number] [place] [address]- 9802 Apr, [facility] [place] [facility] [address] [id number], [place] [address]- 3046 Apr, [facility] [place] [facility] [address] [id number] [place] [address]- 7640 Mar, [facility] [place] [facility] [address] [id number] [place] [address]- 4132 Mar, [facility] [place] [facility] [address] [id number] [place] [address]- 3674 Mar, [facility] [place] [facility] [address] [id number] [place] [address]- 3126 Mar, [facility] [place] [facility] [address] [id number] [place] [address]- 3201 Mar, [facility] [place] [facility] [address] [id number] [place] [address]- 7172 Mar, [facility] [place] [facility] [address] [id number] [place] [address]- 1536 Mar, [facility] [place] [facility] [address] [id number] [place] [address]- 9480 Mar, [facility] [place] [facility] [address] [id number] [place] [address]- 0795 Mar, [facility] [place] [facility] [address] [id number] [place] [address]- 3154 Mar, [facility] [place] [facility] [address] [id number] [place] [address]- 7340 Mar, [facility] [place] [facility] [address] [id number] [place] [address]- 9662 Mar, [facility] [place] [facility] [address] [id number] [place] [address]- 7684 Mar, [facility] [place] [facility] [address] [id number] [place] [address]- 7149 Mar, [facility] [place] [facility] [address] [id number] [place] [address]- 6549 Feb, [facility] [place] [facility] [address] [id number] [place] [address]- 9306 Feb, [facility] [place] [facility] [address] [id number] [place] [address]- 5309 Feb, [facility] [place] [facility] [address] [id number] [place] [address]- 3616 Feb, [facility] [place] [facility] [address] [id number] [place] [address]- 4641 Feb, [facility] [place] [facility] [address] [id number] [place] [address]- 9310 Feb, [facility] [place] [facility] [address] [id number] [place] [address]- 4589 Feb, [facility] [place] [facility] [address] [id number] [place] [address]- 1587 Feb, [facility] [place] [facility] [address] [id number] [place] [address]- 1266 Feb, [facility] [place] [facility] [address] [id number] [place] [address]- 7976 Feb, [facility] [place] [facility] [address] [id number] [place] [address]- 7908 Feb, [facility] [place] [facility] [address] [id number] [place] [address]- 4446 Feb, [facility] [place] [facility] [address] [id number] [place] [address]- 9260 Feb, [facility] [place] [facility] [address] [id number], [place] [address]- 0147 Feb, [facility] [place] [facility] [address] [id number] [place] [address]- 4439 Feb, [facility] [place] [facility] [address] [id number] [place] [address]- 2306 Feb, [facility] [place] [facility] [address] [id number] [place] [address]- 7040 Jan, [facility] [place] [facility] [address] [id number] [place] [address]- 2610 Jan, [facility] [place] [facility] [address] [id number] [place] [address]- 8599 Jan, [facility] [place] [facility] [address] [id number] [place] [address]- 3397 Jan, [facility] [place] [facility] [address] [id number] [place] [address] Jan, [facility] [place] [facility] [address] [id number] [place] [address] Jan, [facility] [place] [facility] [address] [id number] [place] [address] Jan, [facility] [place] [facility] [address] [id number] [place] [address] Jan, [facility] [place] [facility] [address] [id number] [place] [address] Dec, [facility] [place] [facility] [address] [id number] [place] [address] Dec, [facility] [place] [facility] [address] [id number] [place] [address] Nov, [facility] [place] [facility] [address] [id number] [place] [address] Nov, [facility] [place] [facility] [address] [id number] [place] [address] Nov, [facility] [place] [facility] [address] [id number] [place] [address] Nov, [facility] [place] [facility] [address] [id number] [place] [address] Nov, [facility] [place] [facility] [address] [id number] [place] [address] Nov, [facility] [place] [facility] [address] [id number] [place] [address] Oct, [facility] [place] [facility] [address] [id number] [place] [address] Oct, [facility] [place] [facility] [address] [id number] [place] [address] Oct, [facility] [place] [facility] [address] [id number] [place] [address] Oct, [facility] [place] [facility] [address] [id number] [place] [address] Sep, [facility] [place] [facility] [address] [id number] [place] [address] Sep, [facility] [place] [facility] [address] [id number] [place] [address] Sep, [facility] [place] [facility] [address] [id number] [place] [address] Sep, [facility] [place] [facility] [address] [id number] [place] [address] Sep, [facility] [place] [facility] [address] [id number] [place] [address] Sep, [facility] [place] [facility] [address] [id number] [place] [address] August, [facility] [place] [facility] [address] [id number] [place] [address] August, [facility] [place] [facility] [address] [id number] [place] [address] August, [facility] [place] [facility] [address] [id number] [place] [address] August, [facility] [place] [facility] [address] [id number] [place] [address] August, [facility] [place] [facility] [address] [id number] [place] [address] August, [facility] [place] [facility] [address] [id number] [place] [address] August, [facility] [address] [id number] [place] [address] 8[address] August, [facility] [place] [facility] [address] [id number] [place] [address] August, [facility] [place] [facility] [address] [id number] [place] [address] 6620 August, [facility] [place] [facility] [address] [id number] [place] [address] 1634 August, [facility] [place] [facility] [address] [id number] [place] [address]- 9416 August, [facility] [place] [facility] [address] [id number] [place] [address] 6[address] Jul, [facility] [place] [facility] [address] [id number] [place] [address] 4234 Jul, [facility] [place] [facility] [address] [id number] [place] [address] 0738 Jul, [facility] [place] [facility] [address] [id number] [place] [address]387 Jul, [facility] [place] [facility] [address] [id number] [place] [address]- 7323 Jul, [facility] [place] [facility] [address] [id number] [place] [address] 4614 Jul, [facility] [place] [facility] [address] [id number] [place] [address]- 7760 Jul, [facility] [place] [facility] [address] [id number] [place] [address]- 6076 Jul, [facility] [place] [facility] [address] [id number] [place] [address] 6112 Jul, [facility] [place] [facility] [address] [id number] [place] [address]- 2133 Jul, [facility] [place] [facility] [address] [id number] [place] [address] 8702 Jul, [facility] [place] [facility] [address] [id number] [place] [address]- 0464 Jun, [facility] [place] [facility] [address] [id number] [place] [address]- 2529 Jun, [facility] [place] [facility] [address] [id number] [place] [address]- 7812 Jun, [facility] [place] [facility] [address] [id number] [place] [address] 4100 Jun, [facility] [place] [facility] [address] [id number] [place] [address]- 3082 Jun, [facility] [place] [facility] [address] [id number] [place] [address]- 0713 Jun, [facility] [place] [facility] [address] [id number] [place] [address]- 1282 Jun, [facility] [place] [facility] [address] [id number] [place] [address]- 1000 Jun, [facility] [place] [facility] [address] [id number] [place] [address]- 5682 Jun, [facility] [place] [facility] [address] [id number] [place] [address]- 6933 May, [facility] [place] [facility] [address] [id number] [place] [address]- 9465 May, [facility] [place] [facility] [address] [id number] [place] [address]- 7843 May, [facility] [place] [facility] [address] [id number] [place] [address]- 2920 Apr, [facility] [place] [facility] [address] [id number] [place] [address]- 4811 Apr, [facility] [place] [facility] [address] [id number], [place] [address] Apr, [facility] [place] [facility] [address] [id number] [place] [address]- 1013 Apr, [facility] [place] [facility] [address] [id number] [place] [address]- 3921 Apr, [facility] [place] [facility] [address] [id number] [place] [address]- 1636 Apr, [facility] [place] [facility] [address] [id number] [place] [address]- 3237 Apr, [facility] [place] [facility] [address] [id number] [place] [address]- 3447 Apr, [facility] [place] [facility] [address] [id number] [place] [address]- 7046 Mar, [facility] [place] [facility] [address] [id number] [place] [address]- 2014 Mar, [facility] [place] [facility] [address] [id number], [place] [address]- 8101 Feb, [facility] [place] [facility] [address] [id number] [place] [address]- 6889 Feb, [facility] [place] [facility] [address] [id number] [place] [address]- 8828 Jan, [facility] [place] [facility] [address] [id number], [place] [address] 3181 Jan, [facility] [place] [facility] [address] [id number], [place] [address]- 2405 Jan, [facility] [place] [facility] [address] [id number] [place] [address]- 2339 Jan, [facility] [place] [facility] [address] [id number], [place] [address]- 4479 Jan, [facility] [place] [facility] [address] [id number] [place] [address]- 6571 Jan, [facility] [place] [facility] [address] [id number] [place] [address]- 7075 21 Jan, 2012 [facility] [address] [id number] [place] [address]- 2129 21 Jan, 2012 [facility] [place] [facility] [address] [id number] [place] [address]- 3818 17 Jan, 2012 [facility] [address] [id number] [place] [address]- 2340 17 Jan, 2012 [facility] [place] [facility] [address] [id number] [place] [address]- 3996 14 Jan, 2012 [facility] [address] [id number] [place] [address]- 9948 14 Jan, 2012 [facility] [address] [id number] [place] [address]- 7171 10 Jan, 2012 [facility] [place] [facility] [address] [id number] [place] [address]- 1280 10 Jan, 2012 [facility] [address] [id number] [place] [address]- 5013 10 Jan, 2012 [facility] [place] [facility] [address] [id number] [place] [address]- 1225 10 Jan, 2012 [facility] [address] [id number] [place] [address]- 3716 09 Jan, 2012 [facility] [place] [facility] [address] [id number] [place] [address]- 2711 09 Jan, 2012 [facility] [place] [facility] [address] [id number] [place] [address]- 9291 08 Jan, 2012 [facility] [place] [facility] [address] [id number] [place] [address]- 4032 07 Jan, 2012 [facility] [place] [facility] [address] [id number] [place] [address]- 8259 07 Jan, 2012 [facility] [place] [facility] [address] [id number] [place] [address]- 1849 Jan, [facility] [place] [facility] [address] [id number] [place] [address]- 3380 Jan, [facility] [place] [facility] [address] [id number] [place] [address]- 6286 Dec, [facility] [place] [facility] [address] [id number] [place] [address]- 4941 Dec, [facility] [place] [facility] [address] [id number] [place] [address]- 7766 Nov, [facility] [place] [facility] [address] [id number] [place] [address]- 4203 Oct, [facility] [place] [facility] [address] [id number] [place] [address]- 2924 Oct, [facility] [place] [facility] [address] [id number] [place] [address]- 7230 Oct, [facility] [place] [facility] [address] [id number] [place] [address]- 6580 Oct, [facility] [place] [facility] [address] [id number] [place] [address]- 1312 Oct, [facility] [place] [facility] [address] [id number] [place] [address]- 6319 Oct, [facility] [place] [facility] [address] [id number] [place] [address]- 4657 Sep, [facility] [place] [facility] [address] [id number], [place] [address]- 6840 Sep, [facility] [place] [facility] [address] [id number] [place] [address]- 7091 Sep, [facility] [place] [facility] [address] [id number] [place] [address]- 6902 Jul, [facility] [place] [facility] [address] [id number], [place] [address]- 4567 Jul, [facility] [place] [facility] [address] [id number], [place] [address]- 9197 04 Jul, 2012 [facility] [address] [id number] [place] [address]- 7180 Jun, [facility] [address] [id number] [place] [address]- 1050 Jun, [facility] [address] [facility] [id number] [place] [address]- 6255 Jun, [facility] [address] [id number] [place] [address]- 8334 Jun, [facility] [address] [id number] [place] [address]- 0236 Jun, [facility] [address] [id number] [place] [address]- 4729 Jun, [facility] [address] [facility] [id number] [place] [address]- 3554 May, [facility] [address] [id number] [place] [address]- 6584 May, [facility] [address] [facility] [id number] [place] [address]- 6066 Apr, [facility] [address] [facility] [id number] [place] [address]- 0382 Apr, [facility] [address] [id number] [place] [address]- 4912 Apr, [facility] [place] [facility] [address] [id number] [place] [address]- 3744 Apr, [facility] [place] [facility] [address] [id number] [place] [address]- 4426 Apr, [facility] [place] [facility] [address] [id number] [place] [address]- 3139 Mar, [facility] [address] [facility] [id number] [place] [address]- 5176 Mar, [facility] [place] [facility] [address] [id number] [place] [address]- 4446 27 Mar, 2012 [facility] [place] [facility] [address] [id number] [place] [address]- 5016 Mar, [facility] [place] [facility] [address] [id number] [place] [address] 2546 14 Mar, 2012 [facility] [place] [facility] [address] [id number] [place] [address]- 2376 14 Mar, 2012 [facility] [place] [facility] [address] [id number] [place] [address] 2546 Mar, [facility] [place] [facility] [address] [id number] [place] [address]- 4316 Mar, [facility] [place] [facility] [address] [id number] [place] [address]- 1956 Mar, [facility] [place] [facility] [address] [id number] [place] [address]- 1157 Mar, [facility] [place] [facility] [address] [id number] [place] [address]- 6344 Feb, [facility] [place] [facility] [address] [id number] [place] [address] 2541 Feb, [facility] [place] [facility] [address] [id number] [place] [address]- 7076 Feb, [facility] [place] [facility] [address] [id number] [place] [address]- 5646 Feb, [facility] [place] [facility] [address] [id number] [place] [address] 2546 Feb, [facility] [place] [facility] [address] [id number] [place] [address] 2546 Feb, [facility] [place] [facility] [address] [id number] [place] [address]- 0426 Feb, [facility] [place] [facility] [address] [id number] [place] [address]- 9390 Feb, [facility] [place] [facility] [address] [id number] [place] [address]- 6289 Feb, [facility] [place] [facility] [address] [id number] [place] [address]- 6289 Feb, [facility] [place] [facility] [address] [facility] [id number] [place] [address]- 1132 Jan, [facility] [place] [facility] [address] [id number] [place] [address]- 6115 Jan, [facility] [place] [facility] [address] [id number] [place] [address]- 0617 Jan, [facility] [place] [facility] [address] [id number] [place] [address]- 2946 Jan, [facility] [place] [facility] [address] [id number] [place] [address]- 9708 28 Sep2011 [facility] [place] [facility] [address] [id number], [place] [address]- 1897 25 Sep, 2011 [facility] [place] [facility] [address] [id number] [place] [address]- 5996 18 Sep2011 [facility] [place] [facility] [address] [id number], [place] [address]- 0412 18 Sep2011 [facility] [place] [facility] [address] [id number], [place] [address]- 3707 17 Sep, 2011 [facility] [place] [facility] [address] [id number], [place] [address]- 5559 14 Sep, 2011 [facility] [place] [facility] [address] [id number], [place] [address]- 6606 13 Sep, 2011 [facility] [place] [facility] [address] [facility] [id number], [place] [address]- 7580 13 Sep, 2011 [facility] [place] [facility] [address] [facility] [id number], [place] [address]- 1946 06 Sep, 2011 [facility] [place] [facility] [address] [id number] [place] [address]- 7664 Nov, [facility] [place] [facility] [address] [id number] [place] [address] Nov, [facility] [place] [facility] [address] [id number] [place] [address]- 9453 Nov, [facility] [place] [facility] [address] [id number] [place] [address]- 2008 Nov, [facility] [place] [facility] [address] [id number] [place] [address]- 5850 Sep, [facility] [place] [facility] [address] [id number] [place] [address]- 6705 Sep, [facility] [place] [facility] [address] [id number] [place] [address]- 2891 Sep, [facility] [place] [facility] [address] [id number] [place] [address]- 1942 August, [facility] [place] [facility] [address] [id number] [place] [address]- 5989 August, [facility] [place] [facility] [address] [id number] [place] [address]- 5542 August, [facility] [address] [id number] [place] [address]- 8439 August, [facility] [place] [facility] [address] [id number] [place] [address]- 2779 August, [facility] [place] [facility] [address] [id number] [place] [address]- 8531 August, [facility] [place] [facility] [address] [id number] [place] [address]- 0481 August, [facility] [place] [facility] [address] [id number] [place] [address] August, [facility] [place] [facility] [address] [id number] [place] [address]- 1040 August, [facility] [place] [facility] [address] [id number] [place] [address]- 3110 Jul, [facility] [place] [facility] [address] [id number] [place] [address]- 5976 Jun, [facility] [place] [facility] [address] [id number] [place] [address]- 1833 16 Jun, 2011 [facility] [place] [facility] [address] [id number] [place] [address]- 0968 Jun, [facility] [place] [facility] [address] [id number] [place] [address]- 0549 06 Jun, 2011 [facility] [place] [facility] [address] [id number] [place] [address]- 6540 05 Jun, 2011 [facility] [place] [facility] [address] [id number] [place] [address]- 2762 Jun, [facility] [place] [facility] [address] [id number] [place] [address]- 0855 Jun, [facility] [place] [facility] [address] [id number] [place] [address]- 2161 Jun, [facility] [place] [facility] [address] [id number] [place] [address]- 8733 May, [facility] [place] [facility] [address] [id number] [place] [address]- 5934 May, [facility] [place] [facility] [address] [id number] [place] [address]- 8031 May, [facility] [place] [facility] [address] [id number] [place] [address]- 4254 May, [facility] [place] [facility] [address] [id number] [place] [address]- 8136 17 May, 2011 [facility] [place] [facility] [address] [id number] [place] [address]- 4276 16 May, 2011 [facility] [place] [facility] [address] [id number] [place] [address]- 3154 14 May, 2011 [facility] [address] [id number] [place] [address]- 0808 19 Apr, 2011 [facility] [place] [facility] [address] [id number] [place] [address]- 9260 16 Apr, 2011 [facility] [place] [facility] [address] [id number] [place] [address]- 1316 13 Apr, 2011 [facility] [place] [facility] [address] [id number] [place] [address]- 9017 11 Apr, 2011 [facility] [place] [facility] [address] [id number] [place] [address]- 3578 10 Apr, 2011 [facility] [place] [facility] [address] [id number] [place] [address]- 8626 Apr, [facility] [address] [id number] [place] [address]- 1089 Apr, [facility] [place] [facility] [address] [id number] [place] [address]- 4624 Apr, [facility] [place] [facility] [address] [id number] [place] [address]- 0420 29 Mar, 2011 [facility] [place] [facility] [address] [id number] [place] [address]- 6968 Mar, [facility] [place] [facility] [address] [id number] [place] [address]- 1542 28 Feb, 2011 [facility] [place] [facility] [address] [id number] [place] [address]- 8796 17 Feb, 2011 [facility] [place] [facility] [address] [id number] [place] [address]- 5231 17 Feb, 2011 [facility] [place] [facility] [address] [id number] [place] [address]- 1622 16 Feb, 2011 [facility] [place] [facility] [address] [id number] [place] [address]- 1509 16 Feb, 2011 [facility] [place] [facility] [address] [id number] [place] [address]- 8017 Jan, [facility] [place] [facility] [address] [id number] [place] [address]- 4987 Nov, [facility] [place] [facility] [address] [id number] [place] [address]- 4184 Sep, [facility] [place] [facility] [address] [id number] [place] [address]- 4739 August, [facility] [place] [facility] [address] [id number] [place] [address]- 9619 Jun, [facility] [place] [facility] [address] [id number] [place] [address]- 1767 14 May, 2010 [facility] [place] [facility] [address] [id number] [place] [address]- 7636 Apr, [facility] [place] [facility] [address] [id number] [place] [address]- 9278 Mar, [facility] [place] [facility] [address] [id number] [place] [address]- 2031 Mar, [facility] [place] [facility] [address] [id number] [place] [address]- 1594 14 Mar, 2010 [facility] [place] [facility] [address] [id number] [place] [address]- 3582 Feb, [facility] [place] [facility] [address] [id number] [place] [address]- 5764 Feb, [facility] [place] [facility] [address] [id number] [place] [address]- 9687 Jan, [facility] [place] [facility] [address] [id number] [place] [address]- 1088 Jan, [facility] [place] [facility] [address] [id number] [place] [address] Jan, [facility] [place] [facility] [address] [id number] [place] [address]- 2546 Oct, [facility] [address] [facility] [id number], [place] [address]- 2546 Oct, [facility] [address] [facility] [id number], [place] [address]- 2546 Apr, [facility] [address] [facility] [id number], [place] [address]- 2546 Mar, [facility] [address] [facility] [id number], [place] [address]- 2546 Mar, [facility] [address] [facility] [id number], [place] [address]- 2546 Jan, [facility] [address] [facility] [id number], [place] [address]- 2546 Dec, IMMUNIZATIONS No Known Immunizations SOCIAL HISTORY Never Assessed REASON FOR VISIT Medication Correction PLAN OF CARE VITAL SIGNS MEDICATIONS Medication Instructions Dosage Frequency Start Date End Date Duration Status Levemir Flexpen 100 UNIT/ML Subcutaneous 2 times a day Inject 25 units in AM and PM 12h Sep, 30 days Active RESULTS No Results PROCEDURES [...]
--- OUTSIDE RECORDS SUMMARY | 2018-02-13 04:18 | XMS REPORT ---
Author Author NICHELLE VALENZUELA Organization [facility] Address [address] [place] [address] Care Team Providers Care Data Center Operator Name Role Phone NICHELLE VALENZUELA Unavailable PROBLEMS Type Condition ICD9-CM Code [id number]-TV Code Onset Dates Condition Status SNOMED Code Problem PVD (peripheral vascular disease) I73.9 Active 532058817 Problem Insomnia G47.00 Active 492297402 Problem Diabetes mellitus E11.9 Active 12257807 Problem Encounter for dental examination Z01.20 Active 988122529 Problem Bronchitis J40 Active 70517149 Problem Asthma J45.909 Active 600939232 Problem GERD (gastroesophageal reflux disease) K21.9 Active 717095339 Problem Reactive depression F32.9 Active 02985827 Problem Secondary hypertension I15.9 Active 79037041 Problem Renal failure N19 Active 59172579 Problem Joint pain of left hip on movement M25.552 Active 406539455 Problem Hypercholesterolemia E78.00 Active 50606375 Problem Proteinuria R80.9 Active 56002390 Problem Environmental allergies Z91.09 Active 262651446 Problem Neuropathy G62.9 Active 480142966 ALLERGIES No Information SOCIAL HISTORY Never Assessed [...]
--- OUTSIDE RECORDS SUMMARY | 2018-02-13 04:18 | XMS REPORT ---
Author Author NICHELLE VALENZUELA [facility] eClinicalWorks Address Unknown Phone Unavailable Care Team Providers Care Pricing Intern Name Role Phone NICHELLE VALENZUELA Unavailable [...] Date End Date Status Dosage Metformin HCl [facility] [id number] 1000 MG Orally Twice a day 1 tablet with meals Results No Known Results Summary Purpose eClinicalWorks Submission
--- OUTSIDE RECORDS SUMMARY | 2018-02-13 04:18 | XMS REPORT ---
Author Author NICHELLE VALENZUELA [facility] eClinicalWorks Address Unknown Phone Unavailable Care Team Providers Care Harbour Master Name Role Phone NICHELLE VALENZUELA Unavailable Allergies [...] Start Date End Date Status Dosage Percocet [facility] [address]-45 5-325 MG Orally every 6 hrs Jun 16, 2014 take 1 tablet by oral route every 6 hours as needed Results No Known Results Summary Purpose eClinicalWorks Submission
[2018-02-13 04:21] LABS: AMPHETAMINE SCREEN, URINE NEGATIVE (NEGATIVE); BARBITURATE SCREEN URINE NEGATIVE (NEGATIVE); BENZODIAZEPINES SCREEN URINE NEGATIVE (NEGATIVE); CANNABINOID SCREEN, URINE NEGATIVE (NEGATIVE); COCAINE SCREEN URINE NEGATIVE (NEGATIVE); METHADONE STAT NEGATIVE (NEGATIVE); METHAMPHETAMINE SCREEN URINE S NEGATIVE (NEGATIVE); OPIATE SCREEN URINE NEGATIVE (NEGATIVE); OXYCODONE STAT POSITIVE (NEGATIVE); PROPOXYPHENE STAT NEGATIVE (NEGATIVE); TRICYCLIC ANTIDEPRESSANTS SCRE POSITIVE (NEGATIVE)
--- OUTSIDE RECORDS SUMMARY | 2018-02-13 04:27 | XMS REPORT | Continuity of Care Document ---
Author Author [facility] Address Unknown Phone Unavailable Allergies Active Description Code Type Severity Reaction Onset Reported/Identified Relationship to Patient Clinical Status Yes Penicillins Drug Allergy N/A N/A 06/26/2009 Yes Penicillins Drug Allergy 06/26/2009 Yes glucotrol Drug Allergy N/A N/A 08/29/2010 Yes glucotrol Drug Allergy 08/29/2010 Yes Percocet Drug Allergy N/A N/A 06/18/2013 Yes Stadol Drug Allergy N/A N/A 07/19/2013 Yes glipizide [id number] Drug Allergy Unknown DOESN'T REMEMBE 08/02/2013 Yes acetaminophen [id number] Drug Allergy Mild HALLUCINATIONS 08/06/2013 Yes butorphanol [id number] Drug Allergy Mild HALLUCINATIONS 08/06/2013 Yes Oxycodone [id number] Drug Allergy Mild HALLUCINATIONS 08/06/2013 Yes Penicillins [id number] Drug Allergy Unknown PATIENT HAS LEANA 08/06/2013 Medications There is no data. Problems Date Dx Coded Attending Type Code Diagnosis Diagnosed By 09/14/2008 DANIELA BEAR DO 338.4 PAIN CHRONIC SYNDROME 09/14/2008 DANIELA BEAR DO 346.90 MIGRAINE UNSPECIFIED WITHOUT INTRACTABLE MIGRAINE 09/14/2008 DANIELA BEAR DO 696.1 PSORIASIS 09/14/2008 DANIELA BEAR DO 338.4 PAIN CHRONIC SYNDROME 09/14/2008 DANIELA BEAR DO 346.90 MIGRAINE UNSPECIFIED WITHOUT INTRACTABLE MIGRAINE 09/14/2008 DANIELA BEAR DO 696.1 PSORIASIS 09/14/2008 DANIELA BEAR DO 338.4 PAIN CHRONIC SYNDROME 09/14/2008 DANIELA BEAR DO 346.90 MIGRAINE UNSPECIFIED WITHOUT INTRACTABLE MIGRAINE 09/14/2008 DANIELA BEAR DO 696.1 PSORIASIS 09/14/2008 DANIELA BEAR DO 338.4 PAIN CHRONIC SYNDROME 09/14/2008 BEAR DO, DANIELA K 346.90 MIGRAINE UNSPECIFIED WITHOUT INTRACTABLE MIGRAINE 09/14/2008 BEAR DO, DANIELA K 696.1 PSORIASIS 09/14/2008 BEAR DO, DANIELA K 338.4 PAIN CHRONIC SYNDROME 09/14/2008 BEAR DO, DANIELA K 346.90 MIGRAINE UNSPECIFIED WITHOUT INTRACTABLE MIGRAINE 09/14/2008 BEAR DO, DANIELA K 696.1 PSORIASIS 09/14/2008 BEAR DO, DANIELA K 338.4 PAIN CHRONIC SYNDROME 09/14/2008 BEAR DO, DANIELA K 346.90 MIGRAINE UNSPECIFIED WITHOUT INTRACTABLE MIGRAINE 09/14/2008 BEAR DO, DANIELA K 696.1 PSORIASIS 09/14/2008 338.4 PAIN CHRONIC SYNDROME 09/14/2008 346.90 MIGRAINE UNSPECIFIED WITHOUT INTRACTABLE MIGRAINE 09/14/2008 696.1 PSORIASIS 09/14/2008 338.4 PAIN CHRONIC SYNDROME 09/14/2008 346.90 MIGRAINE UNSPECIFIED WITHOUT INTRACTABLE MIGRAINE 09/14/2008 696.1 PSORIASIS 09/14/2008 338.4 PAIN CHRONIC SYNDROME 09/14/2008 346.90 MIGRAINE UNSPECIFIED WITHOUT INTRACTABLE MIGRAINE 09/14/2008 696.1 PSORIASIS 09/14/2008 338.4 PAIN CHRONIC SYNDROME 09/14/2008 346.90 MIGRAINE UNSPECIFIED WITHOUT INTRACTABLE MIGRAINE 09/14/2008 696.1 PSORIASIS 09/14/2008 338.4 PAIN CHRONIC SYNDROME 09/14/2008 346.90 MIGRAINE UNSPECIFIED WITHOUT INTRACTABLE MIGRAINE 09/14/2008 696.1 PSORIASIS 09/14/2008 BEAR DO, DANIELA K 338.4 PAIN CHRONIC SYNDROME 09/14/2008 BEAR DO, DANIELA K 346.90 MIGRAINE UNSPECIFIED WITHOUT INTRACTABLE MIGRAINE 09/14/2008 BEAR DO, DANIELA K 696.1 PSORIASIS 09/14/2008 BEAR DO, DANIELA K 338.4 PAIN CHRONIC SYNDROME 09/14/2008 BEAR DO, DANIELA K 346.90 MIGRAINE UNSPECIFIED WITHOUT INTRACTABLE MIGRAINE 09/14/2008 BEAR DO, DANIELA K 696.1 PSORIASIS 09/14/2008 BEAR DO, DANIELA K 338.4 PAIN CHRONIC SYNDROME 09/14/2008 BEAR DO, DANIELA K 346.90 MIGRAINE UNSPECIFIED WITHOUT INTRACTABLE MIGRAINE 09/14/2008 BEAR DO, DANIELA K 696.1 PSORIASIS 09/14/2008 BEAR DO, DANIELA K 338.4 PAIN CHRONIC SYNDROME 09/14/2008 BEAR DO, DANIELA K 346.90 MIGRAINE UNSPECIFIED WITHOUT INTRACTABLE MIGRAINE 09/14/2008 BEAR DO, DANIELA K 696.1 PSORIASIS 09/14/2008 BEAR DO, DANIELA K 338.4 PAIN CHRONIC SYNDROME 09/14/2008 BEAR DO, DANIELA K 346.90 MIGRAINE UNSPECIFIED WITHOUT INTRACTABLE MIGRAINE 09/14/2008 BEAR DO, DANIELA K 696.1 PSORIASIS 09/14/2008 BEAR DO, DANIELA K 338.4 PAIN CHRONIC SYNDROME 09/14/2008 BEAR DO, DANIELA K 346.90 MIGRAINE UNSPECIFIED WITHOUT INTRACTABLE MIGRAINE 09/14/2008 BEAR DO, DANIELA K 696.1 PSORIASIS 09/14/2008 BEAR DO, DANIELA K 338.4 PAIN CHRONIC SYNDROME 09/14/2008 BEAR DO, DANIELA K 346.90 MIGRAINE UNSPECIFIED WITHOUT INTRACTABLE MIGRAINE 09/14/2008 BEAR DO, DANIELA K 696.1 PSORIASIS 09/14/2008 BEAR DO, DANIELA K 338.4 PAIN CHRONIC SYNDROME 09/14/2008 BEAR DO, DANILEA K 346.90 MIGRAINE UNSPECIFIED WITHOUT INTRACTABLE MIGRAINE 09/14/2008 BEAR DO, DANIELA K 696.1 PSORIASIS 09/14/2008 BEAR DO, DANIELA K 338.4 PAIN CHRONIC SYNDROME 09/14/2008 BEAR DO, DANIELA K 346.90 MIGRAINE UNSPECIFIED WITHOUT INTRACTABLE MIGRAINE 09/14/2008 BEAR DO, DANIELA K 696.1 PSORIASIS 09/14/2008 BEAR DO, DANIELA K 338.4 PAIN CHRONIC SYNDROME 09/14/2008 BEAR DO, DANIELA K 346.90 MIGRAINE UNSPECIFIED WITHOUT INTRACTABLE MIGRAINE 09/14/2008 BEAR DO, DANIELA K 696.1 PSORIASIS 09/14/2008 BEAR DO, DANIELA K 338.4 PAIN CHRONIC SYNDROME 09/14/2008 BEAR DO, DANIELA K 346.90 MIGRAINE UNSPECIFIED WITHOUT INTRACTABLE MIGRAINE 09/14/2008 BEAR DO, DANIELA K 696.1 PSORIASIS 09/14/2008 FROY BIOMEDICAL MANAGER, FLAQUITA S 338.4 PAIN CHRONIC SYNDROME 09/14/2008 FROY BIOMEDICAL MANAGER, FLAQUITA S 346.90 MIGRAINE UNSPECIFIED WITHOUT INTRACTABLE MIGRAINE 09/14/2008 FROY BIOMEDICAL MANAGER, FLAQUITA S 696.1 PSORIASIS 09/14/2008 BEAR DO, DANIELA K 338.4 PAIN CHRONIC SYNDROME 09/14/2008 BEAR DO, DANIELA K 346.90 MIGRAINE UNSPECIFIED WITHOUT INTRACTABLE MIGRAINE 09/14/2008 BEAR DO, DANIELA K 696.1 PSORIASIS 09/14/2008 BEAR DO, DANIELA K 338.4 PAIN CHRONIC SYNDROME 09/14/2008 BEAR DO, DANIELA K 346.90 MIGRAINE UNSPECIFIED WITHOUT INTRACTABLE MIGRAINE 09/14/2008 BEAR DO, DANIELA K 696.1 PSORIASIS 09/14/2008 BEAR DO, DANIELA K 338.4 PAIN CHRONIC SYNDROME 09/14/2008 BEAR DO, DANIELA K 346.90 MIGRAINE UNSPECIFIED WITHOUT INTRACTABLE MIGRAINE 09/14/2008 BEAR DO, DANIELA K 696.1 PSORIASIS 09/14/2008 BEAR DO, DANIELA K 338.4 PAIN CHRONIC SYNDROME 09/14/2008 BEAR DO, DANIELA K 346.90 MIGRAINE UNSPECIFIED WITHOUT INTRACTABLE MIGRAINE 09/14/2008 BEAR DO, DANIELA K 696.1 PSORIASIS 09/14/2008 BEAR DO, DANIELA K 338.4 PAIN CHRONIC SYNDROME 09/14/2008 BEAR DO, DANIELA K 346.90 MIGRAINE UNSPECIFIED WITHOUT INTRACTABLE MIGRAINE 09/14/2008 BEAR DO, DANIELA K 696.1 PSORIASIS 09/14/2008 BEAR DO, DANIELA K 338.4 PAIN CHRONIC SYNDROME 09/14/2008 BEAR DO, DANIELA K 346.90 MIGRAINE UNSPECIFIED WITHOUT INTRACTABLE MIGRAINE 09/14/2008 BEAR DO, DANIELA K 696.1 PSORIASIS 09/14/2008 BEAR DO, DANIELA K 338.4 PAIN CHRONIC SYNDROME 09/14/2008 BEAR DO, DANIELA K 346.90 MIGRAINE UNSPECIFIED WITHOUT INTRACTABLE MIGRAINE 09/14/2008 BEAR DO, DANIELA K 696.1 PSORIASIS 09/14/2008 BEAR DO, DANIELA K 338.4 PAIN CHRONIC SYNDROME 09/14/2008 BEAR DO, DANIELA K 346.90 MIGRAINE UNSPECIFIED WITHOUT INTRACTABLE MIGRAINE 09/14/2008 BEAR DO, DANIELA K 696.1 PSORIASIS 09/14/2008 VASQUEZ PAZ MD 338.4 PAIN CHRONIC SYNDROME 09/14/2008 VASQUEZ PAZ MD 346.90 MIGRAINE UNSPECIFIED WITHOUT INTRACTABLE MIGRAINE 09/14/2008 VASQUEZ PAZ MD 696.1 PSORIASIS 09/14/2008 BEAR DO, DANIELA K 338.4 PAIN CHRONIC SYNDROME 09/14/2008 BEAR DO, DANIELA K 346.90 MIGRAINE UNSPECIFIED WITHOUT INTRACTABLE MIGRAINE 09/14/2008 BEAR DO, DANIELA K 696.1 PSORIASIS 09/14/2008 BEAR DO, DANIELA K 338.4 PAIN CHRONIC SYNDROME 09/14/2008 BEAR DO, DANIELA K 346.90 MIGRAINE UNSPECIFIED WITHOUT INTRACTABLE MIGRAINE 09/14/2008 BEAR DO, DANIELA K 696.1 PSORIASIS 09/14/2008 VASQUEZ PAZ MD 338.4 PAIN CHRONIC SYNDROME 09/14/2008 VASQUEZ PAZ MD 346.90 MIGRAINE UNSPECIFIED WITHOUT INTRACTABLE MIGRAINE 09/14/2008 VASQUEZ PAZ MD 696.1 PSORIASIS 09/14/2008 BEAR DO, DANIELA K 338.4 PAIN CHRONIC SYNDROME 09/14/2008 BEAR DO, DANIELA K 346.90 MIGRAINE UNSPECIFIED WITHOUT INTRACTABLE MIGRAINE 09/14/2008 BEAR DO, DANIELA K 696.1 PSORIASIS 09/14/2008 BEAR DO, DANIELA K 338.4 PAIN CHRONIC SYNDROME 09/14/2008 BEAR DO, DANIELA K 346.90 MIGRAINE UNSPECIFIED WITHOUT INTRACTABLE MIGRAINE 09/14/2008 BEAR DO, DANIELA K 696.1 PSORIASIS 09/14/2008 BEAR DO, DANIELA K 338.4 PAIN CHRONIC SYNDROME 09/14/2008 BEAR DO, DANIELA K 346.90 MIGRAINE UNSPECIFIED WITHOUT INTRACTABLE MIGRAINE 09/14/2008 BEAR DO, DANIELA K 696.1 PSORIASIS 09/14/2008 WESTON MARINA PA-C M 338.4 PAIN CHRONIC SYNDROME 09/14/2008 WESTON MARINA PA-C M 346.90 MIGRAINE UNSPECIFIED WITHOUT INTRACTABLE MIGRAINE 09/14/2008 WESTON MARINA PA-C M 696.1 PSORIASIS 09/14/2008 BEAR DO, DANIELA K 338.4 PAIN CHRONIC SYNDROME 09/14/2008 BEAR DO, DANIELA K 346.90 MIGRAINE UNSPECIFIED WITHOUT INTRACTABLE MIGRAINE 09/14/2008 BEAR DO, DANIELA K 696.1 PSORIASIS 09/14/2008 BEAR DO, DANIELA K 338.4 PAIN CHRONIC SYNDROME 09/14/2008 BEAR DO, DANIELA K 346.90 MIGRAINE UNSPECIFIED WITHOUT INTRACTABLE MIGRAINE 09/14/2008 BEAR DO, DANIELA K 696.1 PSORIASIS 09/14/2008 BEAR DO, DANIELA K 338.4 PAIN CHRONIC SYNDROME 09/14/2008 BEAR DO, DANIELA K 346.90 MIGRAINE UNSPECIFIED WITHOUT INTRACTABLE MIGRAINE 09/14/2008 BEAR DO, DANIELA K 696.1 PSORIASIS 09/14/2008 DARRIUS DONALDSONN ROSA A 338.4 PAIN CHRONIC SYNDROME 09/14/2008 KATIEE BIOMEDICAL MANAGER, ROSA A 346.90 MIGRAINE UNSPECIFIED WITHOUT INTRACTABLE MIGRAINE 09/14/2008 KATIEPeggy BIOMEDICAL MANAGER, ROSA A 696.1 PSORIASIS 09/14/2008 BEAR DO, DANIELA K 338.4 PAIN CHRONIC SYNDROME 09/14/2008 BEAR DO, DANIELA K 346.90 MIGRAINE UNSPECIFIED WITHOUT INTRACTABLE MIGRAINE 09/14/2008 BEAR DO, DANIELA K 696.1 PSORIASIS 09/14/2008 BEAR DO, DANIELA K 338.4 PAIN CHRONIC SYNDROME 09/14/2008 BEAR DO, DANIELA K 346.90 MIGRAINE UNSPECIFIED WITHOUT INTRACTABLE MIGRAINE 09/14/2008 BEAR DO, DANIELA K 696.1 PSORIASIS 09/14/2008 BEAR DO, DANIELA K 338.4 PAIN CHRONIC SYNDROME 09/14/2008 BEAR DO, DANIELA K 346.90 MIGRAINE UNSPECIFIED WITHOUT INTRACTABLE MIGRAINE 09/14/2008 BEAR DO, DANIELA K 696.1 PSORIASIS 09/14/2008 BEAR DO, DANIELA K 338.4 PAIN CHRONIC SYNDROME 09/14/2008 BEAR DO, DANIELA K 346.90 MIGRAINE UNSPECIFIED WITHOUT INTRACTABLE MIGRAINE 09/14/2008 EBAR DO, DANIELA K 696.1 PSORIASIS 09/14/2008 BEAR DO, DANIELA K 338.4 PAIN CHRONIC SYNDROME 09/14/2008 BEAR DO, DANIELA K 346.90 MIGRAINE UNSPECIFIED WITHOUT INTRACTABLE MIGRAINE 09/14/2008 BEAR DO, DANIELA K 696.1 PSORIASIS 09/14/2008 FROY BIOMEDICAL MANAGER, FLAQUITA S 338.4 PAIN CHRONIC SYNDROME 09/14/2008 FROY BIOMEDICAL MANAGER, FLAQUITA S 346.90 MIGRAINE UNSPECIFIED WITHOUT INTRACTABLE MIGRAINE 09/14/2008 FROY BIOMEDICAL MANAGER, FLAQUITA S 696.1 PSORIASIS 09/14/2008 BEAR DO, DANIELA K 338.4 PAIN CHRONIC SYNDROME 09/14/2008 BEAR DO, DANIELA K 346.90 MIGRAINE UNSPECIFIED WITHOUT INTRACTABLE MIGRAINE 09/14/2008 BEAR DO, DANIELA K 696.1 PSORIASIS 09/19/2008 BEAR DO, DANIELA K 401.9 Hypertension, Unspecified Essential 09/19/2008 BEAR DO, DANIELA K 401.9 Hypertension, Unspecified Essential 09/19/2008 BEAR DO, DANIELA K 401.9 Hypertension, Unspecified Essential 09/19/2008 BEAR DO, DANIELA K 401.9 Hypertension, Unspecified Essential 09/19/2008 BEAR DO, DANIELA K 401.9 Hypertension, Unspecified Essential 09/19/2008 BEAR DO, DANIELA K 401.9 Hypertension, Unspecified Essential 09/19/2008 401.9 Hypertension, Unspecified Essential 09/19/2008 401.9 Hypertension, Unspecified Essential 09/19/2008 401.9 Hypertension, Unspecified Essential 09/19/2008 401.9 Hypertension, Unspecified Essential 09/19/2008 401.9 Hypertension, Unspecified Essential 09/19/2008 BEAR DO, DANIELA K 401.9 Hypertension, Unspecified Essential 09/19/2008 BEAR DO, DANIELA K 401.9 Hypertension, Unspecified Essential 09/19/2008 BEAR DO, DANIELA K 401.9 Hypertension, Unspecified Essential 09/19/2008 BEAR DO, DANIELA K 401.9 Hypertension, Unspecified Essential 09/19/2008 BEAR DO, DANIELA K 401.9 Hypertension, Unspecified Essential 09/19/2008 BEAR DO, DANIELA K 401.9 Hypertension, Unspecified Essential 09/19/2008 BEAR DO, DANIELA K 401.9 Hypertension, Unspecified Essential 09/19/2008 BEAR DO, DANIELA K 401.9 Hypertension, Unspecified Essential 09/19/2008 BEAR DO, DANIELA K 401.9 Hypertension, Unspecified Essential 09/19/2008 BEAR DO, DANIELA K 401.9 Hypertension, Unspecified Essential 09/19/2008 BEAR DO, DANIELA K 401.9 Hypertension, Unspecified Essential 09/19/2008 FLAQUITA MCDUFFIE APRN 401.9 Hypertension, Unspecified Essential 09/19/2008 BEAR DO, DANIELA K 401.9 Hypertension, Unspecified Essential 09/19/2008 BEAR DO, DANIELA K 401.9 Hypertension, Unspecified Essential 09/19/2008 BEAR DO, DANIELA K 401.9 Hypertension, Unspecified Essential 09/19/2008 BEAR DO, DANIELA K 401.9 Hypertension, Unspecified Essential 09/19/2008 BEAR DO, DANIELA K 401.9 Hypertension, Unspecified Essential 09/19/2008 BEAR DO, DANIELA K 401.9 Hypertension, Unspecified Essential 09/19/2008 BEAR DO, DANIELA K 401.9 Hypertension, Unspecified Essential 09/19/2008 BEAR DO, DANIELA K 401.9 Hypertension, Unspecified Essential 09/19/2008 VASQUEZ PAZ MD 401.9 Hypertension, Unspecified Essential 09/19/2008 BEAR DO, DANIELA K 401.9 Hypertension, Unspecified Essential 09/19/2008 BEAR DO, DANIELA K 401.9 Hypertension, Unspecified Essential 09/19/2008 VASQUEZ PAZ MD 401.9 Hypertension, Unspecified Essential 09/19/2008 BEAR DO, DANIELA K 401.9 Hypertension, Unspecified Essential 09/19/2008 BEAR DO, DANIELA K 401.9 Hypertension, Unspecified Essential 09/19/2008 BEAR DO, DANIELA K 401.9 Hypertension, Unspecified Essential 09/19/2008 WESTON MARINA PA-C 401.9 Hypertension, Unspecified Essential 09/19/2008 BEAR DO, DANIELA K 401.9 Hypertension, Unspecified Essential 09/19/2008 BEAR DO, DANIELA K 401.9 Hypertension, Unspecified Essential 09/19/2008 BEAR DO, DANIELA K 401.9 Hypertension, Unspecified Essential 09/19/2008 ROSA RIZO APRN A 401.9 Hypertension, Unspecified Essential 09/19/2008 BEAR DO, DANIELA K 401.9 Hypertension, Unspecified Essential 09/19/2008 BEAR DO, DANIELA K 401.9 Hypertension, Unspecified Essential 09/19/2008 BEAR DO, DANIELA K 401.9 Hypertension, Unspecified Essential 09/19/2008 BEAR DO, DANIELA K 401.9 Hypertension, Unspecified Essential 09/19/2008 BEAR DO, DANIELA K 401.9 Hypertension, Unspecified Essential 09/19/2008 FLAQUITA MCDUFFIE APRN S 401.9 Hypertension, Unspecified Essential 09/19/2008 BEAR DO, DANIELA K 401.9 Hypertension, Unspecified Essential 12/14/2008 BEAR DO, DANIELA K V74.1 SCREENING EXAMINATION FOR PULMONARY TUBERCULOSIS 12/14/2008 BEAR DO, DANIELA K V74.1 SCREENING EXAMINATION FOR PULMONARY TUBERCULOSIS 12/14/2008 BEAR DO, DANIELA K V74.1 SCREENING EXAMINATION FOR PULMONARY TUBERCULOSIS 12/14/2008 BEAR DO, DANIELA K V74.1 SCREENING EXAMINATION FOR PULMONARY TUBERCULOSIS 12/14/2008 BEAR DO, DANIELA K V74.1 SCREENING EXAMINATION FOR PULMONARY TUBERCULOSIS 12/14/2008 BEAR DO, DANIELA K V74.1 SCREENING EXAMINATION FOR PULMONARY TUBERCULOSIS 12/14/2008 V74.1 SCREENING EXAMINATION FOR PULMONARY TUBERCULOSIS 12/14/2008 V74.1 SCREENING EXAMINATION FOR PULMONARY TUBERCULOSIS 12/14/2008 V74.1 SCREENING EXAMINATION FOR PULMONARY TUBERCULOSIS 12/14/2008 V74.1 SCREENING EXAMINATION FOR PULMONARY TUBERCULOSIS 12/14/2008 V74.1 SCREENING EXAMINATION FOR PULMONARY TUBERCULOSIS 12/14/2008 BEAR DO, DANIELA K V74.1 SCREENING EXAMINATION FOR PULMONARY TUBERCULOSIS 12/14/2008 BEAR DO, DANIELA K V74.1 SCREENING EXAMINATION FOR PULMONARY TUBERCULOSIS 12/14/2008 BEAR DO, DANIELA K V74.1 SCREENING EXAMINATION FOR PULMONARY TUBERCULOSIS 12/14/2008 BEAR DO, DANIELA K V74.1 SCREENING EXAMINATION FOR PULMONARY TUBERCULOSIS 12/14/2008 BEAR DO, DANIELA K V74.1 SCREENING EXAMINATION FOR PULMONARY TUBERCULOSIS 12/14/2008 BEAR DO, DANIELA K V74.1 SCREENING EXAMINATION FOR PULMONARY TUBERCULOSIS 12/14/2008 BEAR DO, DANIELA K V74.1 SCREENING EXAMINATION FOR PULMONARY TUBERCULOSIS 12/14/2008 BEAR DO, DANIELA K V74.1 SCREENING EXAMINATION FOR PULMONARY TUBERCULOSIS 12/14/2008 BEAR DO, DANIELA K V74.1 SCREENING EXAMINATION FOR PULMONARY TUBERCULOSIS 12/14/2008 BEAR DO, DANIELA K V74.1 SCREENING EXAMINATION FOR PULMONARY TUBERCULOSIS 12/14/2008 BEAR DO, DANIELA K V74.1 SCREENING EXAMINATION FOR PULMONARY TUBERCULOSIS 12/14/2008 FLAQUITA MCDUFFIE APRN S V74.1 SCREENING EXAMINATION FOR PULMONARY TUBERCULOSIS 12/14/2008 BEAR DO, DANEILA K V74.1 SCREENING EXAMINATION FOR PULMONARY TUBERCULOSIS 12/14/2008 BEAR DO, DANIELA K V74.1 SCREENING EXAMINATION FOR PULMONARY TUBERCULOSIS 12/14/2008 BEAR DO, DANIELA K V74.1 SCREENING EXAMINATION FOR PULMONARY TUBERCULOSIS 12/14/2008 BEAR DO, DANIELA K V74.1 SCREENING EXAMINATION FOR PULMONARY TUBERCULOSIS 12/14/2008 BEAR DO, DANIELA K V74.1 SCREENING EXAMINATION FOR PULMONARY TUBERCULOSIS 12/14/2008 BEAR DO, DANIELA K V74.1 SCREENING EXAMINATION FOR PULMONARY TUBERCULOSIS 12/14/2008 BEAR DO, DANIELA K V74.1 SCREENING EXAMINATION FOR PULMONARY TUBERCULOSIS 12/14/2008 BEAR DO, DANIELA K V74.1 SCREENING EXAMINATION FOR PULMONARY TUBERCULOSIS 12/14/2008 VASQUEZ PAZ MD V74.1 SCREENING EXAMINATION FOR PULMONARY TUBERCULOSIS 12/14/2008 BEAR DO, DANIELA K V74.1 SCREENING EXAMINATION FOR PULMONARY TUBERCULOSIS 12/14/2008 BEAR DO, DANIELA K V74.1 SCREENING EXAMINATION FOR PULMONARY TUBERCULOSIS 12/14/2008 JACKSON YEH, VASQUEZ V74.1 SCREENING EXAMINATION FOR PULMONARY TUBERCULOSIS 12/14/2008 BEAR DO, DANIELA K V74.1 SCREENING EXAMINATION FOR PULMONARY TUBERCULOSIS 12/14/2008 BEAR DO, DANIELA K V74.1 SCREENING EXAMINATION FOR PULMONARY TUBERCULOSIS 12/14/2008 BEAR DO, DANIELA K V74.1 SCREENING EXAMINATION FOR PULMONARY TUBERCULOSIS 12/14/2008 WESTON MARINA PA-C V74.1 SCREENING EXAMINATION FOR PULMONARY TUBERCULOSIS 12/14/2008 BEAR DO, DANIELA K V74.1 SCREENING EXAMINATION FOR PULMONARY TUBERCULOSIS 12/14/2008 BEAR DO, DANIELA K V74.1 SCREENING EXAMINATION FOR PULMONARY TUBERCULOSIS 12/14/2008 BEAR DO, DANIELA K V74.1 SCREENING EXAMINATION FOR PULMONARY TUBERCULOSIS 12/14/2008 ROSA RIZO APRN V74.1 SCREENING EXAMINATION FOR PULMONARY TUBERCULOSIS 12/14/2008 BEAR DO, DANIELA K V74.1 SCREENING EXAMINATION FOR PULMONARY TUBERCULOSIS 12/14/2008 BEAR DO, DANIELA K V74.1 SCREENING EXAMINATION FOR PULMONARY TUBERCULOSIS 12/14/2008 BEAR DO, DANIELA K V74.1 SCREENING EXAMINATION FOR PULMONARY TUBERCULOSIS 12/14/2008 BEAR DO, DANIELA K V74.1 SCREENING EXAMINATION FOR PULMONARY TUBERCULOSIS 12/14/2008 BEAR DO, DANIELA K V74.1 SCREENING EXAMINATION FOR PULMONARY TUBERCULOSIS 12/14/2008 FLAQUITA MCDUFFIE APRN V74.1 SCREENING EXAMINATION FOR PULMONARY TUBERCULOSIS 12/14/2008 BEAR DO, DANIELA K V74.1 SCREENING EXAMINATION FOR PULMONARY TUBERCULOSIS 12/23/2008 BEAR DO, DANIELA K 461.9 SINUSITIS ACUTE 12/23/2008 BEAR DO, DANIELA K 461.9 SINUSITIS ACUTE 12/23/2008 BEAR DO, DANIELA K 461.9 SINUSITIS ACUTE 12/23/2008 BEAR DO, DANIELA K 461.9 SINUSITIS ACUTE 12/23/2008 BEAR DO, DANIELA K 461.9 SINUSITIS ACUTE 12/23/2008 BEAR DO, DANIELA K 461.9 SINUSITIS ACUTE 12/23/2008 461.9 SINUSITIS ACUTE 12/23/2008 461.9 SINUSITIS ACUTE 12/23/2008 461.9 SINUSITIS ACUTE 12/23/2008 461.9 SINUSITIS ACUTE 12/23/2008 461.9 SINUSITIS ACUTE 12/23/2008 BEAR DO, DANIELA K 461.9 SINUSITIS ACUTE 12/23/2008 BEAR DO, DANIELA K 461.9 SINUSITIS ACUTE 12/23/2008 BEAR DO, DANIELA K 461.9 SINUSITIS ACUTE 12/23/2008 BEAR DO, DANIELA K 461.9 SINUSITIS ACUTE 12/23/2008 BEAR DO, DANIELA K 461.9 SINUSITIS ACUTE 12/23/2008 BEAR DO, DANIELA K 461.9 SINUSITIS ACUTE 12/23/2008 BEAR DO, DANIELA K 461.9 SINUSITIS ACUTE 12/23/2008 BEAR DO, DANIELA K 461.9 SINUSITIS ACUTE 12/23/2008 BEAR DO, DANIELA K 461.9 SINUSITIS ACUTE 12/23/2008 BEAR DO, DANIELA K 461.9 SINUSITIS ACUTE 12/23/2008 BEAR DO, DANIELA K 461.9 SINUSITIS ACUTE 12/23/2008 FLAQUITA MCDUFFIE APRN 461.9 SINUSITIS ACUTE 12/23/2008 BEAR DO, DANIELA K 461.9 SINUSITIS ACUTE 12/23/2008 BEAR DO, DANIELA K 461.9 SINUSITIS ACUTE 12/23/2008 BEAR DO, DANIELA K 461.9 SINUSITIS ACUTE 12/23/2008 BEAR DO, DANIELA K 461.9 SINUSITIS ACUTE 12/23/2008 BEAR DO, DANIELA K 461.9 SINUSITIS ACUTE 12/23/2008 BEAR DO, DANIELA K 461.9 SINUSITIS ACUTE 12/23/2008 BEAR DO, DANIELA K 461.9 SINUSITIS ACUTE 12/23/2008 BEAR DO, DANIELA K 461.9 SINUSITIS ACUTE 12/23/2008 VASQUEZ PAZ MD 461.9 SINUSITIS ACUTE 12/23/2008 BEAR DO, DANIELA K 461.9 SINUSITIS ACUTE 12/23/2008 BEAR DO, DANIELA K 461.9 SINUSITIS ACUTE 12/23/2008 VASQUEZ PAZ MD 461.9 SINUSITIS ACUTE 12/23/2008 BEAR DO, DANIELA K 461.9 SINUSITIS ACUTE 12/23/2008 BEAR DO, ADNIELA K 461.9 SINUSITIS ACUTE 12/23/2008 EBAR DO, DANIELA K 461.9 SINUSITIS ACUTE 12/23/2008 SALAS BARROSO, WESTON Walton 461.9 SINUSITIS ACUTE 12/23/2008 BEAR DO, DANIELA K 461.9 SINUSITIS ACUTE 12/23/2008 BEAR DO, DANIELA K 461.9 SINUSITIS ACUTE 12/23/2008 BEAR DO, DANIELA K 461.9 SINUSITIS ACUTE 12/23/2008 ROSA RIZO APRN A 461.9 SINUSITIS ACUTE 12/23/2008 BEAR DO, DANIELA K 461.9 SINUSITIS ACUTE 12/23/2008 BEAR DO, DANIELA K 461.9 SINUSITIS ACUTE 12/23/2008 BEAR DO, DANIELA K 461.9 SINUSITIS ACUTE 12/23/2008 BEAR DO, DANIELA K 461.9 SINUSITIS ACUTE 12/23/2008 BEAR DO, DANIELA K 461.9 SINUSITIS ACUTE 12/23/2008 FLAQUITA MCDUFFIE APRN 461.9 SINUSITIS ACUTE 12/23/2008 BEAR DO, DANILEA K 461.9 SINUSITIS ACUTE 12/31/2008 BEAR DO, DANIELA K 472.0 RHINITIS 12/31/2008 BEAR DO, DANIELA K 716.90 ARTHRITIS/ ARTHROPATHY, UNSPECIFIED 12/31/2008 BEAR DO, DANIELA K 472.0 RHINITIS 12/31/2008 BEAR DO, DANIELA K 716.90 ARTHRITIS/ ARTHROPATHY, UNSPECIFIED 12/31/2008 BEAR DO, DANIELA K 472.0 RHINITIS 12/31/2008 BEAR DO, DANIELA K 716.90 ARTHRITIS/ ARTHROPATHY, UNSPECIFIED 12/31/2008 BEAR DO, DANIELA K 472.0 RHINITIS 12/31/2008 BEAR DO, DANIELA K 716.90 ARTHRITIS/ ARTHROPATHY, UNSPECIFIED 12/31/2008 BEAR DO, DANIELA K 472.0 RHINITIS 12/31/2008 BEAR DO, DANIELA K 716.90 ARTHRITIS/ ARTHROPATHY, UNSPECIFIED 12/31/2008 BEAR DO, DANIELA K 472.0 RHINITIS 12/31/2008 BEAR DO, DANIELA K 716.90 ARTHRITIS/ ARTHROPATHY, UNSPECIFIED 12/31/2008 472.0 RHINITIS 12/31/2008 716.90 ARTHRITIS/ ARTHROPATHY, UNSPECIFIED 12/31/2008 472.0 RHINITIS 12/31/2008 716.90 ARTHRITIS/ ARTHROPATHY, UNSPECIFIED 12/31/2008 472.0 RHINITIS 12/31/2008 716.90 ARTHRITIS/ ARTHROPATHY, UNSPECIFIED 12/31/2008 472.0 RHINITIS 12/31/2008 716.90 ARTHRITIS/ ARTHROPATHY, UNSPECIFIED 12/31/2008 472.0 RHINITIS 12/31/2008 716.90 ARTHRITIS/ ARTHROPATHY, UNSPECIFIED 12/31/2008 BEAR DO, DANIELA K 472.0 RHINITIS 12/31/2008 BEAR DO, DANIELA K 716.90 ARTHRITIS/ ARTHROPATHY, UNSPECIFIED 12/31/2008 BEAR DO, DANIELA K 472.0 RHINITIS 12/31/2008 BEAR DO, DANIELA K 716.90 ARTHRITIS/ ARTHROPATHY, UNSPECIFIED 12/31/2008 BEAR DO, DANIELA K 472.0 RHINITIS 12/31/2008 BEAR DO, DANIELA K 716.90 ARTHRITIS/ ARTHROPATHY, UNSPECIFIED 12/31/2008 BEAR DO, DANIELA K 472.0 RHINITIS 12/31/2008 BEAR DO, DANIELA K 716.90 ARTHRITIS/ ARTHROPATHY, UNSPECIFIED 12/31/2008 BEAR DO, DANIELA K 472.0 RHINITIS 12/31/2008 BEAR DO, DANIELA K 716.90 ARTHRITIS/ ARTHROPATHY, UNSPECIFIED 12/31/2008 BEAR DO, DANIELA K 472.0 RHINITIS 12/31/2008 BEAR DO, DANIELA K 716.90 ARTHRITIS/ ARTHROPATHY, UNSPECIFIED 12/31/2008 BEAR DO, DANIELA K 472.0 RHINITIS 12/31/2008 BEAR DO, DANIELA K 716.90 ARTHRITIS/ ARTHROPATHY, UNSPECIFIED 12/31/2008 BEAR DO, DANIELA K 472.0 RHINITIS 12/31/2008 BEAR DO, DANIELA K 716.90 ARTHRITIS/ ARTHROPATHY, UNSPECIFIED 12/31/2008 BEAR DO, DANIELA K 472.0 RHINITIS 12/31/2008 BEAR DO, DANIELA K 716.90 ARTHRITIS/ ARTHROPATHY, UNSPECIFIED 12/31/2008 BEAR DO, DANIELA K 472.0 RHINITIS 12/31/2008 BEAR DO, DANIELA K 716.90 ARTHRITIS/ ARTHROPATHY, UNSPECIFIED 12/31/2008 BEAR DO, DANIELA K 472.0 RHINITIS 12/31/2008 BEAR DO, DANIELA K 716.90 ARTHRITIS/ ARTHROPATHY, UNSPECIFIED 12/31/2008 FROY BIOMEDICAL MANAGER, FLAQUITA S 472.0 RHINITIS 12/31/2008 FROY BIOMEDICAL MANAGER, FLAQUITA S 716.90 ARTHRITIS/ ARTHROPATHY, UNSPECIFIED 12/31/2008 BEAR DO, DANIELA K 472.0 RHINITIS 12/31/2008 BEAR DO, DANIELA K 716.90 ARTHRITIS/ ARTHROPATHY, UNSPECIFIED 12/31/2008 BEAR DO, DANIELA K 472.0 RHINITIS 12/31/2008 BEAR DO, DANIELA K 716.90 ARTHRITIS/ ARTHROPATHY, UNSPECIFIED 12/31/2008 BEAR DO, DANIELA K 472.0 RHINITIS 12/31/2008 BEAR DO, DANIELA K 716.90 ARTHRITIS/ ARTHROPATHY, UNSPECIFIED 12/31/2008 BERA DO, DANIELA K 472.0 RHINITIS 12/31/2008 BEAR DO, DANIELA K 716.90 ARTHRITIS/ ARTHROPATHY, UNSPECIFIED 12/31/2008 BEAR DO, DANIELA K 472.0 RHINITIS 12/31/2008 BEAR DO, DANIELA K 716.90 ARTHRITIS/ ARTHROPATHY, UNSPECIFIED 12/31/2008 BEAR DO, DANIELA K 472.0 RHINITIS 12/31/2008 BEAR DO, DANIELA K 716.90 ARTHRITIS/ ARTHROPATHY, UNSPECIFIED 12/31/2008 BEAR DO, DANIELA K 472.0 RHINITIS 12/31/2008 BEAR DO, DANIELA K 716.90 ARTHRITIS/ ARTHROPATHY, UNSPECIFIED 12/31/2008 BEAR DO, DANIELA K 472.0 RHINITIS 12/31/2008 BEAR DO, DANIELA K 716.90 ARTHRITIS/ ARTHROPATHY, UNSPECIFIED 12/31/2008 VASQUEZ PAZ MD 472.0 RHINITIS 12/31/2008 VASQUEZ PAZ MD.90 ARTHRITIS/ ARTHROPATHY, UNSPECIFIED 12/31/2008 BEAR DO, DANIELA K 472.0 RHINITIS 12/31/2008 BEAR DO, DANIELA K 716.90 ARTHRITIS/ ARTHROPATHY, UNSPECIFIED 12/31/2008 EBAR DO, DANIELA K 472.0 RHINITIS 12/31/2008 BEAR DO, DANIELA K 716.90 ARTHRITIS/ ARTHROPATHY, UNSPECIFIED 12/31/2008 VASQUEZ PAZ MD 472.0 RHINITIS 12/31/2008 VASQUEZ PAZ MD.90 ARTHRITIS/ ARTHROPATHY, UNSPECIFIED 12/31/2008 BEAR DO, DANIELA K 472.0 RHINITIS 12/31/2008 BEAR DO, DANIELA K 716.90 ARTHRITIS/ ARTHROPATHY, UNSPECIFIED 12/31/2008 BEAR DO, DANIELA K 472.0 RHINITIS 12/31/2008 BEAR DO, DANIELA K 716.90 ARTHRITIS/ ARTHROPATHY, UNSPECIFIED 12/31/2008 BEAR DO, DANIELA K 472.0 RHINITIS 12/31/2008 BEAR DO, DANIELA K 716.90 ARTHRITIS/ ARTHROPATHY, UNSPECIFIED 12/31/2008 SALAS BARROSO, WESTON Walton 472.0 RHINITIS 12/31/2008 SALAS BARROSO, WESTON Walton 716.90 ARTHRITIS/ ARTHROPATHY, UNSPECIFIED 12/31/2008 BEAR DO, DANIELA K 472.0 RHINITIS 12/31/2008 BEAR DO, DANIELA K 716.90 ARTHRITIS/ ARTHROPATHY, UNSPECIFIED 12/31/2008 BEAR DO, DANIELA K 472.0 RHINITIS 12/31/2008 BEAR DO, DANIELA K 716.90 ARTHRITIS/ ARTHROPATHY, UNSPECIFIED 12/31/2008 BEAR DO, DANIELA K 472.0 RHINITIS 12/31/2008 BEAR DO, DANIELA K 716.90 ARTHRITIS/ ARTHROPATHY, UNSPECIFIED 12/31/2008 RAJMARANDAE BIOMEDICAL MANAGER, ROSA A 472.0 RHINITIS 12/31/2008 KATIEE BIOMEDICAL MANAGER, ROSA A 716.90 ARTHRITIS/ ARTHROPATHY, UNSPECIFIED 12/31/2008 BEAR DO, DANIELA K 472.0 RHINITIS 12/31/2008 BEAR DO, DANIELA K 716.90 ARTHRITIS/ ARTHROPATHY, UNSPECIFIED 12/31/2008 BEAR DO, DANIELA K 472.0 RHINITIS 12/31/2008 BEAR DO, DANIELA K 716.90 ARTHRITIS/ ARTHROPATHY, UNSPECIFIED 12/31/2008 BEAR DO, DANIELA K 472.0 RHINITIS 12/31/2008 BEAR DO, DANIELA K 716.90 ARTHRITIS/ ARTHROPATHY, UNSPECIFIED 12/31/2008 BEAR DO, DANIELA K 472.0 RHINITIS 12/31/2008 BEAR DO, DANIELA K 716.90 ARTHRITIS/ ARTHROPATHY, UNSPECIFIED 12/31/2008 BEAR DO, DANIELA K 472.0 RHINITIS 12/31/2008 BEAR DO, DANIELA K 716.90 ARTHRITIS/ ARTHROPATHY, UNSPECIFIED 12/31/2008 FROY BIOMEDICAL MANAGER, FLAQUITA S 472.0 RHINITIS 12/31/2008 FROY BIOMEDICAL MANAGER, FLAQUITA S 716.90 ARTHRITIS/ ARTHROPATHY, UNSPECIFIED 12/31/2008 BEAR DO, DANIELA K 472.0 RHINITIS 12/31/2008 BEAR DO, DANIELA K 716.90 ARTHRITIS/ ARTHROPATHY, UNSPECIFIED 01/09/2009 BEAR DO, DANIELA K 786.2 COUGH 01/09/2009 BEAR DO, DANIELA K 786.2 COUGH 01/09/2009 EBAR DO, DANIELA K 786.2 COUGH 01/09/2009 BEAR DO, DANIELA K 786.2 COUGH 01/09/2009 BEAR DO, DANIELA K 786.2 COUGH 01/09/2009 BEAR DO, DANIELA K 786.2 COUGH 01/09/2009 786.2 COUGH 01/09/2009 786.2 COUGH 01/09/2009 786.2 COUGH 01/09/2009 786.2 COUGH 01/09/2009 786.2 COUGH 01/09/2009 BEAR DO, DANIELA K 786.2 COUGH 01/09/2009 BEAR DO, DANIELA K 786.2 COUGH 01/09/2009 BEAR DO, DANIELA K 786.2 COUGH 01/09/2009 BEAR DO, DANIELA K 786.2 COUGH 01/09/2009 BEAR DO, DANIELA K 786.2 COUGH 01/09/2009 BEAR DO, DANIELA K 786.2 COUGH 01/09/2009 BEAR DO, DANIELA K 786.2 COUGH 01/09/2009 BEAR DO, DANIELA K 786.2 COUGH 01/09/2009 BEAR DO, DANIELA K 786.2 COUGH 01/09/2009 BEAR DO, DANIELA K 786.2 COUGH 01/09/2009 BEAR DO, DANIELA K 786.2 COUGH 01/09/2009 FROY BIOMEDICAL MANAGER, FLAQUITA S 786.2 COUGH 01/09/2009 BEAR DO, DANIELA K 786.2 COUGH 01/09/2009 BEAR DO, DANIELA K 786.2 COUGH 01/09/2009 BEAR DO, DANIELA K 786.2 COUGH 01/09/2009 BEAR DO, DANIELA K 786.2 COUGH 01/09/2009 BEAR DO, DANIELA K 786.2 COUGH 01/09/2009 BEAR DO, DANIELA K 786.2 COUGH 01/09/2009 BEAR DO, DANIELA K 786.2 COUGH 01/09/2009 BEAR DO, DANIELA K 786.2 COUGH 01/09/2009 VASQUEZ PAZ MD 786.2 COUGH 01/09/2009 BEAR DO, DANIELA K 786.2 COUGH 01/09/2009 BEAR DO, DANIELA K 786.2 COUGH 01/09/2009 VASQUEZ PAZ MD 786.2 COUGH 01/09/2009 BEAR DO, DANIELA K 786.2 COUGH 01/09/2009 BEAR DO, DANIELA K 786.2 COUGH 01/09/2009 BEAR DO, DANIELA K 786.2 COUGH 01/09/2009 WESTON MARINA PA-C 786.2 COUGH 01/09/2009 BEAR DO, DANIELA K 786.2 COUGH 01/09/2009 BEAR DO, DANIELA K 786.2 COUGH 01/09/2009 BEAR DO, DANIELA K 786.2 COUGH 01/09/2009 ROSA RIZO APRN A 786.2 COUGH 01/09/2009 BEAR DO, DANIELA K 786.2 COUGH 01/09/2009 BEAR DO, DANIELA K 786.2 COUGH 01/09/2009 BEAR DO, DANIELA K 786.2 COUGH 01/09/2009 BEAR DO, DANIELA K 786.2 COUGH 01/09/2009 BEAR DO, DANIELA K 786.2 COUGH 01/09/2009 FLAQUITA MCDUFFIE APRN 786.2 COUGH 01/09/2009 BEAR DO, DANIELA K 786.2 COUGH 04/26/2009 BEAR DO, DANIELA K 401.1 HYPERTENSION, BENIGN ESSENTIAL 04/26/2009 BEAR DO, DANIELA K 401.1 HYPERTENSION, BENIGN ESSENTIAL 04/26/2009 BEAR DO, DANIELA K 401.1 HYPERTENSION, BENIGN ESSENTIAL 04/26/2009 BEAR DO, DANIELA K 401.1 HYPERTENSION, BENIGN ESSENTIAL 04/26/2009 BEAR DO, DANIELA K 401.1 ESSENTIAL HYPERTENSION BENIGN 04/26/2009 BEAR DO, DANIELA K 401.1 ESSENTIAL HYPERTENSION BENIGN 04/26/2009 401.1 ESSENTIAL HYPERTENSION BENIGN 04/26/2009 401.1 ESSENTIAL HYPERTENSION BENIGN 04/26/2009 401.1 ESSENTIAL HYPERTENSION BENIGN 04/26/2009 401.1 ESSENTIAL HYPERTENSION BENIGN 04/26/2009 401.1 ESSENTIAL HYPERTENSION BENIGN 04/26/2009 BEAR DO, DANIELA K 401.1 ESSENTIAL HYPERTENSION BENIGN 04/26/2009 BEAR DO, DANIELA K 401.1 ESSENTIAL HYPERTENSION BENIGN 04/26/2009 BEAR DO, DANIELA K 401.1 ESSENTIAL HYPERTENSION BENIGN 04/26/2009 BEAR DO, DANIELA K 401.1 ESSENTIAL HYPERTENSION BENIGN 04/26/2009 BEAR DO, DANIELA K 401.1 ESSENTIAL HYPERTENSION BENIGN 04/26/2009 BEAR DO, DANIELA K 401.1 ESSENTIAL HYPERTENSION BENIGN 04/26/2009 BEAR DO, DANIELA K 401.1 ESSENTIAL HYPERTENSION BENIGN 04/26/2009 BEAR DO, DANIELA K 401.1 ESSENTIAL HYPERTENSION BENIGN 04/26/2009 BEAR DO, DANIELA K 401.1 ESSENTIAL HYPERTENSION BENIGN 04/26/2009 BEAR DO, DANIELA K 401.1 ESSENTIAL HYPERTENSION BENIGN 04/26/2009 BEAR DO, DANIELA K 401.1 ESSENTIAL HYPERTENSION BENIGN 04/26/2009 FLAQUITA MCDUFFIE APRN 401.1 ESSENTIAL HYPERTENSION BENIGN 04/26/2009 BEAR DO, DANIELA K 401.1 ESSENTIAL HYPERTENSION BENIGN 04/26/2009 BEAR DO, DANIELA K 401.1 ESSENTIAL HYPERTENSION BENIGN 04/26/2009 BEAR DO, DANIELA K 401.1 ESSENTIAL HYPERTENSION BENIGN 04/26/2009 BEAR DO, DANIELA K 401.1 ESSENTIAL HYPERTENSION BENIGN 04/26/2009 BEAR DO, DANIELA K 401.1 ESSENTIAL HYPERTENSION BENIGN 04/26/2009 BEAR DO, DANIELA K 401.1 ESSENTIAL HYPERTENSION BENIGN 04/26/2009 BEAR DO, DANIELA K 401.1 ESSENTIAL HYPERTENSION BENIGN 04/26/2009 BEAR DO, DANIELA K 401.1 ESSENTIAL HYPERTENSION BENIGN 04/26/2009 VASQUEZ PAZ MD 401.1 ESSENTIAL HYPERTENSION BENIGN 04/26/2009 BEAR DO, DANIELA K 401.1 ESSENTIAL HYPERTENSION BENIGN 04/26/2009 BEAR DO, DANIELA K 401.1 ESSENTIAL HYPERTENSION BENIGN 04/26/2009 VASQUEZ PAZ MD 401.1 ESSENTIAL HYPERTENSION BENIGN 04/26/2009 BEAR DO, DANIELA K 401.1 ESSENTIAL HYPERTENSION BENIGN 04/26/2009 BEAR DO, DANIELA K 401.1 ESSENTIAL HYPERTENSION BENIGN 04/26/2009 BEAR DO, DANIELA K 401.1 ESSENTIAL HYPERTENSION BENIGN 04/26/2009 WESTON MARINA PA-C 401.1 ESSENTIAL HYPERTENSION BENIGN 04/26/2009 BEAR DO, DANIELA K 401.1 ESSENTIAL HYPERTENSION BENIGN 04/26/2009 BEAR DO, DANIELA K 401.1 ESSENTIAL HYPERTENSION BENIGN 04/26/2009 BEAR DO, DANIELA K 401.1 ESSENTIAL HYPERTENSION BENIGN 04/26/2009 ROSA RIZO APRN A 401.1 ESSENTIAL HYPERTENSION BENIGN 04/26/2009 BEAR DO, DANIELA K 401.1 ESSENTIAL HYPERTENSION BENIGN 04/26/2009 BEAR DO, DANIELA K 401.1 ESSENTIAL HYPERTENSION BENIGN 04/26/2009 BEAR DO, DANIELA K 401.1 ESSENTIAL HYPERTENSION BENIGN 04/26/2009 BEAR DO, DANIELA K 401.1 ESSENTIAL HYPERTENSION BENIGN 04/26/2009 BEAR DO, DANIELA K 401.1 ESSENTIAL HYPERTENSION BENIGN 04/26/2009 FROY DONALDSONNKHUSHBUA S 401.1 ESSENTIAL HYPERTENSION BENIGN 04/26/2009 BEAR DO, DANIELA K 401.1 ESSENTIAL HYPERTENSION BENIGN 06/26/2009 BEAR DO, DNAIELA K 477.9 RHINITIS 06/26/2009 BEAR DO, DANIELA K 477.9 RHINITIS 06/26/2009 BEAR DO, DANIELA K 477.9 RHINITIS 06/26/2009 BEAR DO, DANIELA K 477.9 RHINITIS 06/26/2009 BEAR DO, DANIELA K 477.9 RHINITIS 06/26/2009 BEAR DO, DANIELA K 477.9 RHINITIS 06/26/2009 477.9 RHINITIS 06/26/2009 477.9 RHINITIS 06/26/2009 477.9 RHINITIS 06/26/2009 477.9 RHINITIS 06/26/2009 477.9 RHINITIS 06/26/2009 BEAR DO, DANIELA K 477.9 RHINITIS 06/26/2009 BEAR DO, DANIELA K 477.9 RHINITIS 06/26/2009 BEAR DO, DANIELA K 477.9 RHINITIS 06/26/2009 BEAR DO, DANIELA K 477.9 RHINITIS 06/26/2009 BEAR DO, DANIELA K 477.9 RHINITIS 06/26/2009 BEAR DO, DANIELA K 477.9 RHINITIS 06/26/2009 BEAR DO, DANIELA K 477.9 RHINITIS 06/26/2009 BEAR DO, DANIELA K 477.9 RHINITIS 06/26/2009 BEAR DO, DANIELA K 477.9 RHINITIS 06/26/2009 BEAR DO, DANIELA K 477.9 RHINITIS 06/26/2009 BEAR DO, DANIELA K 477.9 RHINITIS 06/26/2009 FROY BIOMEDICAL MANAGER FLAQUITA S 477.9 RHINITIS 06/26/2009 BEAR DO, DANIELA K 477.9 RHINITIS 06/26/2009 BEAR DO, DANIELA K 477.9 RHINITIS 06/26/2009 BEAR DO, DANIELA K 477.9 RHINITIS 06/26/2009 BEAR DO, DANIELA K 477.9 RHINITIS 06/26/2009 BEAR DO, DANIELA K 477.9 RHINITIS 06/26/2009 BEAR DO, DANIELA K 477.9 RHINITIS 06/26/2009 BEAR DO, DANIELA K 477.9 RHINITIS 06/26/2009 BEAR DO, DANIELA K 477.9 RHINITIS 06/26/2009 VASQUEZ PAZ MD 477.9 RHINITIS 06/26/2009 BEAR DO, DANIELA K 477.9 RHINITIS 06/26/2009 BEAR DO, DANIELA K 477.9 RHINITIS 06/26/2009 VASQUEZ PAZ MD 477.9 RHINITIS 06/26/2009 BEAR DO, DANIELA K 477.9 RHINITIS 06/26/2009 BEAR DO, DANIELA K 477.9 RHINITIS 06/26/2009 BEAR DO, DANIELA K 477.9 RHINITIS 06/26/2009 WESTON MARINA PA-C 477.9 RHINITIS 06/26/2009 BEAR DO, DANIELA K 477.9 RHINITIS 06/26/2009 BEAR DO, DANIELA K 477.9 RHINITIS 06/26/2009 BEAR DO, DANIELA K 477.9 RHINITIS 06/26/2009 ROSA RIZO APRN 477.9 RHINITIS 06/26/2009 BEAR DO, DANIELA K 477.9 RHINITIS 06/26/2009 BEAR DO, DANIELA K 477.9 RHINITIS 06/26/2009 BEAR DO, DANIELA K 477.9 RHINITIS 06/26/2009 BEAR DO, DANIELA K 477.9 RHINITIS 06/26/2009 BEAR DO, DANIELA K 477.9 RHINITIS 06/26/2009 FLAQUITA MCDUFFIE APRN 477.9 RHINITIS 06/26/2009 BEAR DO, DANIELA K 477.9 RHINITIS 08/21/2009 BEAR DO, DANIELA K 784.0 HEADACHE 08/21/2009 BEAR DO, DANIELA K 784.0 HEADACHE 08/21/2009 BEAR DO, DANIELA K 784.0 HEADACHE 08/21/2009 BEAR DO, DANIELA K 784.0 HEADACHE 08/21/2009 BEAR DO, DANIELA K 784.0 HEADACHE 08/21/2009 BEAR DO, DANIELA K 784.0 HEADACHE 08/21/2009 784.0 HEADACHE 08/21/2009 784.0 HEADACHE 08/21/2009 784.0 HEADACHE 08/21/2009 784.0 HEADACHE 08/21/2009 784.0 HEADACHE 08/21/2009 BEAR DO, DANIELA K 784.0 HEADACHE 08/21/2009 BEAR DO, DANIELA K 784.0 HEADACHE 08/21/2009 BEAR DO, DANIELA K 784.0 HEADACHE 08/21/2009 BEAR DO, DANIELA K 784.0 HEADACHE 08/21/2009 BEAR DO, DANIELA K 784.0 HEADACHE 08/21/2009 BEAR DO, DANIELA K 784.0 HEADACHE 08/21/2009 BEAR DO, DANIELA K 784.0 HEADACHE 08/21/2009 BEAR DO, DANIELA K 784.0 HEADACHE 08/21/2009 BEAR DO, DANIELA K 784.0 HEADACHE 08/21/2009 BEAR DO, DANIELA K 784.0 HEADACHE 08/21/2009 BEAR DO, DANIELA K 784.0 HEADACHE 08/21/2009 FLAQUITA MCDUFFIE APRN 784.0 HEADACHE 08/21/2009 BEAR DO, DANIELA K 784.0 HEADACHE 08/21/2009 BEAR DO, DANIELA K 784.0 HEADACHE 08/21/2009 BEAR DO, DANIELA K 784.0 HEADACHE 08/21/2009 BEAR DO, DANIELA K 784.0 HEADACHE 08/21/2009 BEAR DO, DANIELA K 784.0 HEADACHE 08/21/2009 BEAR DO, DANIELA K 784.0 HEADACHE 08/21/2009 BEAR DO, DANIELA K 784.0 HEADACHE 08/21/2009 BEAR DO, DANIELA K 784.0 HEADACHE 08/21/2009 VASQUEZ PAZ MD 784.0 HEADACHE 08/21/2009 BEAR DO, DANIELA K 784.0 HEADACHE 08/21/2009 BEAR DO, DANIELA K 784.0 HEADACHE 08/21/2009 VASQUEZ PAZ MD 784.0 HEADACHE 08/21/2009 BEAR DO, DANIELA K 784.0 HEADACHE 08/21/2009 BEAR DO, DANIELA K 784.0 HEADACHE 08/21/2009 BEAR DO, DANIELA K 784.0 HEADACHE 08/21/2009 WESTON MARINA PA-C 784.0 HEADACHE 08/21/2009 BEAR DO, DANIELA K 784.0 HEADACHE 08/21/2009 BEAR DO, DANIELA K 784.0 HEADACHE 08/21/2009 BEAR DO, DANIELA K 784.0 HEADACHE 08/21/2009 ROSA RIZO APRN 784.0 HEADACHE 08/21/2009 BEAR DO, DANIELA K 784.0 HEADACHE 08/21/2009 BEAR DO, DANIELA K 784.0 HEADACHE 08/21/2009 BEAR DO, DANIELA K 784.0 HEADACHE 08/21/2009 BEAR DO, DANIELA K 784.0 HEADACHE 08/21/2009 BEAR DO, DANIELA K 784.0 HEADACHE 08/21/2009 FLAQUITA MCDUFFIE APRN S 784.0 HEADACHE 08/21/2009 BEAR DO, DANIELA K 784.0 HEADACHE 09/22/2009 BEAR DO, DANIELA K 270.7 Hyperglycemia 09/22/2009 BEAR DO, DANIELA K 272.4 HYPERLIPIDEMIA UNSPECIFIED 09/22/2009 BEAR DO, DANIELA K 270.7 Hyperglycemia 09/22/2009 BEAR DO, DANIELA K 272.4 HYPERLIPIDEMIA UNSPECIFIED 09/22/2009 BEAR DO, DANIELA K 270.7 Hyperglycemia 09/22/2009 BEAR DO, DANIELA K 272.4 HYPERLIPIDEMIA UNSPECIFIED 09/22/2009 BEAR DO, DANIELA K 270.7 Hyperglycemia 09/22/2009 BEAR DO, DANIELA K 272.4 HYPERLIPIDEMIA UNSPECIFIED 09/22/2009 BEAR DO, DANIELA K 270.7 Hyperglycemia 09/22/2009 BEAR DO, DANIELA K 272.4 HYPERLIPIDEMIA HYPERLIPOPROTEINEMIAS (Old Classification) 09/22/2009 BEAR DO, DANIELA K 270.7 Hyperglycemia 09/22/2009 BEAR DO, DANIELA K 272.4 HYPERLIPIDEMIA HYPERLIPOPROTEINEMIAS (Old Classification) 09/22/2009 270.7 Hyperglycemia 09/22/2009 272.4 HYPERLIPIDEMIA HYPERLIPOPROTEINEMIAS (Old Classification) 09/22/2009 270.7 Hyperglycemia 09/22/2009 272.4 HYPERLIPIDEMIA HYPERLIPOPROTEINEMIAS (Old Classification) 09/22/2009 270.7 Hyperglycemia 09/22/2009 272.4 HYPERLIPIDEMIA HYPERLIPOPROTEINEMIAS (Old Classification) 09/22/2009 270.7 Hyperglycemia 09/22/2009 272.4 HYPERLIPIDEMIA HYPERLIPOPROTEINEMIAS (Old Classification) 09/22/2009 270.7 Hyperglycemia 09/22/2009 272.4 HYPERLIPIDEMIA HYPERLIPOPROTEINEMIAS (Old Classification) 09/22/2009 BEAR DO, DANIELA K 270.7 Hyperglycemia 09/22/2009 BEAR DO, DANIELA K 272.4 HYPERLIPIDEMIA HYPERLIPOPROTEINEMIAS (Old Classification) 09/22/2009 BEAR DO, DANIELA K 270.7 Hyperglycemia 09/22/2009 BEAR DO, DANIELA K 272.4 HYPERLIPIDEMIA HYPERLIPOPROTEINEMIAS (Old Classification) 09/22/2009 BEAR DO, DANIELA K 270.7 Hyperglycemia 09/22/2009 BEAR DO, DANIELA K 272.4 HYPERLIPIDEMIA HYPERLIPOPROTEINEMIAS (Old Classification) 09/22/2009 BEAR DO, DANIELA K 270.7 Hyperglycemia 09/22/2009 BEAR DO, DANIELA K 272.4 HYPERLIPIDEMIA HYPERLIPOPROTEINEMIAS (Old Classification) 09/22/2009 BEAR DO, DANIELA K 270.7 Hyperglycemia 09/22/2009 BEAR DO, DANIELA K 272.4 HYPERLIPIDEMIA HYPERLIPOPROTEINEMIAS (Old Classification) 09/22/2009 BEAR DO, DANIELA K 270.7 Hyperglycemia 09/22/2009 BEAR DO, DANIELA K 272.4 HYPERLIPIDEMIA HYPERLIPOPROTEINEMIAS (Old Classification) 09/22/2009 BEAR DO, DANIELA K 270.7 Hyperglycemia 09/22/2009 BEAR DO, DANIELA K 272.4 HYPERLIPIDEMIA HYPERLIPOPROTEINEMIAS (Old Classification) 09/22/2009 BEAR DO, DANIELA K 270.7 Hyperglycemia 09/22/2009 BEAR DO, DANIELA K 272.4 HYPERLIPIDEMIA HYPERLIPOPROTEINEMIAS (Old Classification) 09/22/2009 BEAR DO, DANIELA K 270.7 Hyperglycemia 09/22/2009 BEAR DO, DANIELA K 272.4 HYPERLIPIDEMIA HYPERLIPOPROTEINEMIAS (Old Classification) 09/22/2009 BEAR DO, DANIELA K 270.7 Hyperglycemia 09/22/2009 BEAR DO, DANIELA K 272.4 HYPERLIPIDEMIA HYPERLIPOPROTEINEMIAS (Old Classification) 09/22/2009 BEAR DO, DANIELA K 270.7 Hyperglycemia 09/22/2009 BEAR DO, DANIELA K 272.4 HYPERLIPIDEMIA HYPERLIPOPROTEINEMIAS (Old Classification) 09/22/2009 FROY BIOMEDICAL MANAGER, FLAQUITA S 270.7 Hyperglycemia 09/22/2009 FROY BIOMEDICAL MANAGER, FLAQUITA S 272.4 HYPERLIPIDEMIA HYPERLIPOPROTEINEMIAS (Old Classification) 09/22/2009 BEAR DO, DANIELA K 270.7 Hyperglycemia 09/22/2009 BEAR DO, DANIELA K 272.4 HYPERLIPIDEMIA HYPERLIPOPROTEINEMIAS (Old Classification) 09/22/2009 BEAR DO, DANIELA K 270.7 Hyperglycemia 09/22/2009 BEAR DO, DANIELA K 272.4 HYPERLIPIDEMIA HYPERLIPOPROTEINEMIAS (Old Classification) 09/22/2009 BEAR DO, DANIELA K 270.7 Hyperglycemia 09/22/2009 BEAR DO, DANIELA K 272.4 HYPERLIPIDEMIA HYPERLIPOPROTEINEMIAS (Old Classification) 09/22/2009 BEAR DO, DANIELA K 270.7 Hyperglycemia 09/22/2009 BEAR DO, DANIELA K 272.4 HYPERLIPIDEMIA HYPERLIPOPROTEINEMIAS (Old Classification) 09/22/2009 BEAR DO, DANIELA K 270.7 Hyperglycemia 09/22/2009 BEAR DO, DANIELA K 272.4 HYPERLIPIDEMIA HYPERLIPOPROTEINEMIAS (Old Classification) 09/22/2009 BEAR DO, DANIELA K 270.7 Hyperglycemia 09/22/2009 BEAR DO, DANIELA K 272.4 HYPERLIPIDEMIA HYPERLIPOPROTEINEMIAS (Old Classification) 09/22/2009 BEAR DO, DANIELA K 270.7 Hyperglycemia 09/22/2009 BEAR DO, DANIELA K 272.4 HYPERLIPIDEMIA HYPERLIPOPROTEINEMIAS (Old Classification) 09/22/2009 BEAR DO, DANIELA K 270.7 Hyperglycemia 09/22/2009 BEAR DO, DANIELA K 272.4 HYPERLIPIDEMIA HYPERLIPOPROTEINEMIAS (Old Classification) 09/22/2009 VASQUEZ PAZ MD 270.7 Hyperglycemia 09/22/2009 VASQUEZ PAZ MD 272.4 HYPERLIPIDEMIA HYPERLIPOPROTEINEMIAS (Old Classification) 09/22/2009 BEAR DO, DANIELA K 270.7 Hyperglycemia 09/22/2009 BEAR DO, DANIELA K 272.4 HYPERLIPIDEMIA HYPERLIPOPROTEINEMIAS (Old Classification) 09/22/2009 BEAR DO, DANIELA K 270.7 Hyperglycemia 09/22/2009 BEAR DO, DANIELA K 272.4 HYPERLIPIDEMIA HYPERLIPOPROTEINEMIAS (Old Classification) 09/22/2009 VASQUEZ PAZ MD 270.7 Hyperglycemia 09/22/2009 VASQUEZ PAZ MD 272.4 HYPERLIPIDEMIA HYPERLIPOPROTEINEMIAS (Old Classification) 09/22/2009 BEAR DO, DANIELA K 270.7 Hyperglycemia 09/22/2009 BEAR DO, DANIELA K 272.4 HYPERLIPIDEMIA HYPERLIPOPROTEINEMIAS (Old Classification) 09/22/2009 BEAR DO, DANIELA K 270.7 Hyperglycemia 09/22/2009 BEAR DO, DANIELA K 272.4 HYPERLIPIDEMIA HYPERLIPOPROTEINEMIAS (Old Classification) 09/22/2009 BEAR DO, DANIELA K 270.7 Hyperglycemia 09/22/2009 BEAR DO, DANIELA K 272.4 HYPERLIPIDEMIA HYPERLIPOPROTEINEMIAS (Old Classification) 09/22/2009 MARINA PA-C, WESTON M 270.7 Hyperglycemia 09/22/2009 MARINA PA-C, WESTON M 272.4 HYPERLIPIDEMIA HYPERLIPOPROTEINEMIAS (Old Classification) 09/22/2009 BEAR DO, DANIELA K 270.7 Hyperglycemia 09/22/2009 BEAR DO, DANIELA K 272.4 HYPERLIPIDEMIA HYPERLIPOPROTEINEMIAS (Old Classification) 09/22/2009 BEAR DO, DANIELA K 270.7 Hyperglycemia 09/22/2009 BEAR DO, DANIELA K 272.4 HYPERLIPIDEMIA HYPERLIPOPROTEINEMIAS (Old Classification) 09/22/2009 BEAR DO, DANIELA K 270.7 Hyperglycemia 09/22/2009 BEAR DO, DANIELA K 272.4 HYPERLIPIDEMIA HYPERLIPOPROTEINEMIAS (Old Classification) 09/22/2009 RAJOTTE BIOMEDICAL MANAGER, ROSA A 270.7 Hyperglycemia 09/22/2009 RAJOTTE BIOMEDICAL MANAGER, ROSA A 272.4 HYPERLIPIDEMIA HYPERLIPOPROTEINEMIAS (Old Classification) 09/22/2009 BEAR DO, DANIELA K 270.7 Hyperglycemia 09/22/2009 BEAR DO, DANIELA K 272.4 HYPERLIPIDEMIA HYPERLIPOPROTEINEMIAS (Old Classification) 09/22/2009 BEAR DO, DANIELA K 270.7 Hyperglycemia 09/22/2009 BEAR DO, DANIELA K 272.4 HYPERLIPIDEMIA HYPERLIPOPROTEINEMIAS (Old Classification) 09/22/2009 BEAR DO, DANIELA K 270.7 Hyperglycemia 09/22/2009 BEAR DO, DANIELA K 272.4 HYPERLIPIDEMIA HYPERLIPOPROTEINEMIAS (Old Classification) 09/22/2009 BEAR DO, DANIELA K 270.7 Hyperglycemia 09/22/2009 BEAR DO, DANIELA K 272.4 HYPERLIPIDEMIA HYPERLIPOPROTEINEMIAS (Old Classification) 09/22/2009 BEAR DO, DANIELA K 270.7 Hyperglycemia 09/22/2009 BEAR DO, DANIELA K 272.4 HYPERLIPIDEMIA HYPERLIPOPROTEINEMIAS (Old Classification) 09/22/2009 FROY BIOMEDICAL MANAGER, FLAQUITA S 270.7 Hyperglycemia 09/22/2009 FROY BIOMEDICAL MANAGER, FLAQUITA S 272.4 HYPERLIPIDEMIA HYPERLIPOPROTEINEMIAS (Old Classification) 09/22/2009 BEAR DO, DANIELA K 270.7 Hyperglycemia 09/22/2009 BEAR DO, DANIELA K 272.4 HYPERLIPIDEMIA HYPERLIPOPROTEINEMIAS (Old Classification) 11/21/2009 BEAR DO, DANIELA K 250.00 DIABETES MELLITUS 11/21/2009 BEAR DO, DANIELA K 250.00 DIABETES MELLITUS 11/21/2009 BEAR DO, DANIELA K 250.00 DIABETES MELLITUS 11/21/2009 BEAR DO, DANIELA K 250.00 DIABETES MELLITUS 11/21/2009 BEAR DO, DANIELA K 250.00 DIABETES MELLITUS 11/21/2009 BEAR DO, DANIELA K 250.00 DIABETES MELLITUS 11/21/2009 250.00 DIABETES MELLITUS 11/21/2009 250.00 DIABETES MELLITUS 11/21/2009 250.00 DIABETES MELLITUS 11/21/2009 250.00 DIABETES MELLITUS 11/21/2009 250.00 DIABETES MELLITUS 11/21/2009 BEAR DO, DANIELA K 250.00 DIABETES MELLITUS 11/21/2009 BEAR DO, DANIELA K 250.00 DIABETES MELLITUS 11/21/2009 BEAR DO, DANIELA K 250.00 DIABETES MELLITUS 11/21/2009 BEAR DO, DANIELA K 250.00 DIABETES MELLITUS 11/21/2009 BEAR DO, DANIELA K 250.00 DIABETES MELLITUS 11/21/2009 BEAR DO, DANIELA K 250.00 DIABETES MELLITUS 11/21/2009 BEAR DO, DANIELA K 250.00 DIABETES MELLITUS 11/21/2009 BEAR DO, DANIELA K 250.00 DIABETES MELLITUS 11/21/2009 BEAR DO, DANIELA K 250.00 DIABETES MELLITUS 11/21/2009 BEAR DO, DANIELA K 250.00 DIABETES MELLITUS 11/21/2009 BEAR DO, DANIELA K 250.00 DIABETES MELLITUS 11/21/2009 FROY BIOMEDICAL MANAGER, FLAQUITA S 250.00 DIABETES MELLITUS 11/21/2009 BEAR DO, DANIELA K 250.00 DIABETES MELLITUS 11/21/2009 BEAR DO, DANIELA K 250.00 DIABETES MELLITUS 11/21/2009 BEAR DO, DANIELA K 250.00 DIABETES MELLITUS 11/21/2009 BEAR DO, DANIELA K 250.00 DIABETES MELLITUS 11/21/2009 BEAR DO, DANIELA K 250.00 DIABETES MELLITUS 11/21/2009 BEAR DO, DANIELA K 250.00 DIABETES MELLITUS 11/21/2009 BEAR DO, DANIELA K 250.00 DIABETES MELLITUS 11/21/2009 BEAR DO, DANIELA K 250.00 DIABETES MELLITUS 11/21/2009 JACKSON YEH, VASQUEZ 250.00 DIABETES MELLITUS 11/21/2009 BEAR DO, DANIELA K 250.00 DIABETES MELLITUS 11/21/2009 BEAR DO, DANIELA K 250.00 DIABETES MELLITUS 11/21/2009 JACKSON YEH, VASQUEZ 250.00 DIABETES MELLITUS 11/21/2009 BEAR DO, DANIELA K 250.00 DIABETES MELLITUS 11/21/2009 BEAR DO, DANIELA K 250.00 DIABETES MELLITUS 11/21/2009 BEAR DO, DANIELA K 250.00 DIABETES MELLITUS 11/21/2009 WESTON MARINA PA-C 250.00 DIABETES MELLITUS 11/21/2009 BEAR DO, DANIELA K 250.00 DIABETES MELLITUS 11/21/2009 BEAR DO, DANIELA K 250.00 DIABETES MELLITUS 11/21/2009 BEAR DO, DANIELA K 250.00 DIABETES MELLITUS 11/21/2009 ROSA RIZO APRN 250.00 DIABETES MELLITUS 11/21/2009 BEAR DO, DANIELA K 250.00 DIABETES MELLITUS 11/21/2009 BEAR DO, DANIELA K 250.00 DIABETES MELLITUS 11/21/2009 BEAR DO, DANIELA K 250.00 DIABETES MELLITUS 11/21/2009 BEAR DO, DANIELA K 250.00 DIABETES MELLITUS 11/21/2009 BEAR DO, DANIELA K 250.00 DIABETES MELLITUS 11/21/2009 FLAQUITA MCDUFFIE APRN S 250.00 DIABETES MELLITUS 11/21/2009 BEAR DO, DANIELA K 250.00 DIABETES MELLITUS 05/08/2010 BEAR DO, DANIELA K 719.41 joint pain, localized in the shoulder 05/08/2010 BEAR DO, DANIELA K 719.41 joint pain, localized in the shoulder 05/08/2010 BEAR DO, DANIELA K 719.41 joint pain, localized in the shoulder 05/08/2010 BEAR DO, DANIELA K 719.41 joint pain, localized in the shoulder 05/08/2010 BEAR DO, DANIELA K 719.41 joint pain, localized in the shoulder 05/08/2010 BEAR DO, DANIELA K 719.41 joint pain, localized in the shoulder 05/08/2010 719.41 joint pain, localized in the shoulder 05/08/2010 719.41 joint pain, localized in the shoulder 05/08/2010 719.41 joint pain, localized in the shoulder 05/08/2010 719.41 joint pain, localized in the shoulder 05/08/2010 719.41 joint pain, localized in the shoulder 05/08/2010 BEAR DO, DANIELA K 719.41 joint pain, localized in the shoulder 05/08/2010 BEAR DO, DANIELA K 719.41 joint pain, localized in the shoulder 05/08/2010 BEAR DO, DANIELA K 719.41 joint pain, localized in the shoulder 05/08/2010 BEAR DO, DANIELA K 719.41 joint pain, localized in the shoulder 05/08/2010 BEAR DO, DANIELA K 719.41 joint pain, localized in the shoulder 05/08/2010 BEAR DO, DANIELA K 719.41 joint pain, localized in the shoulder 05/08/2010 BEAR DO, DANIELA K 719.41 joint pain, localized in the shoulder 05/08/2010 BEAR DO, DANIELA K 719.41 joint pain, localized in the shoulder 05/08/2010 BEAR DO, DANIELA K 719.41 joint pain, localized in the shoulder 05/08/2010 BEAR DO, DANIELA K 719.41 joint pain, localized in the shoulder 05/08/2010 BEAR DO, DANIELA K 719.41 joint pain, localized in the shoulder 05/08/2010 FLAQUITA MCDUFFIE APRN S 719.41 joint pain, localized in the shoulder 05/08/2010 BEAR DO, DANIELA K 719.41 joint pain, localized in the shoulder 05/08/2010 BEAR DO, DANIELA K 719.41 JOINT PAIN, LOCALIZED IN THE SHOULDER 05/08/2010 BEAR DO, DANIELA K 719.41 JOINT PAIN, LOCALIZED IN THE SHOULDER 05/08/2010 BEAR DO, DANIELA K 719.41 JOINT PAIN, LOCALIZED IN THE SHOULDER 05/08/2010 BEAR DO, DANIELA K 719.41 JOINT PAIN, LOCALIZED IN THE SHOULDER 05/08/2010 BEAR DO, DANIELA K 719.41 JOINT PAIN, LOCALIZED IN THE SHOULDER 05/08/2010 BEAR DO, DANIELA K 719.41 JOINT PAIN, LOCALIZED IN THE SHOULDER 05/08/2010 BEAR DO, DANIELA K 719.41 JOINT PAIN, LOCALIZED IN THE SHOULDER 05/08/2010 VASQUEZ PAZ MD 719.41 JOINT PAIN, LOCALIZED IN THE SHOULDER 05/08/2010 BEAR DO, DANIELA K 719.41 JOINT PAIN, LOCALIZED IN THE SHOULDER 05/08/2010 BEAR DO, DANIELA K 719.41 JOINT PAIN, LOCALIZED IN THE SHOULDER 05/08/2010 VASQUEZ PAZ MD 719.41 JOINT PAIN, LOCALIZED IN THE SHOULDER 05/08/2010 BEAR DO, DANIELA K 719.41 JOINT PAIN, LOCALIZED IN THE SHOULDER 05/08/2010 BEAR DO, DANIELA K 719.41 JOINT PAIN, LOCALIZED IN THE SHOULDER 05/08/2010 BEAR DO, DANIELA K 719.41 JOINT PAIN, LOCALIZED IN THE SHOULDER 05/08/2010 WESTON MARINA PA-C 719.41 JOINT PAIN, LOCALIZED IN THE SHOULDER 05/08/2010 BEAR DO, DANIELA K 719.41 JOINT PAIN, LOCALIZED IN THE SHOULDER 05/08/2010 BEAR DO, DANIELA K 719.41 JOINT PAIN, LOCALIZED IN THE SHOULDER 05/08/2010 BEAR DO, DANIELA K 719.41 JOINT PAIN, LOCALIZED IN THE SHOULDER 05/08/2010 ROSA RIZO APRN A 719.41 JOINT PAIN, LOCALIZED IN THE SHOULDER 05/08/2010 BEAR DO, DANIELA K 719.41 JOINT PAIN, LOCALIZED IN THE SHOULDER 05/08/2010 BEAR DO, DANIELA K 719.41 JOINT PAIN, LOCALIZED IN THE SHOULDER 05/08/2010 BEAR DO, DANIELA K 719.41 JOINT PAIN, LOCALIZED IN THE SHOULDER 05/08/2010 BEAR DO, DANIELA K 719.41 JOINT PAIN, LOCALIZED IN THE SHOULDER 05/08/2010 BEAR DO, DANIELA K 719.41 JOINT PAIN, LOCALIZED IN THE SHOULDER 05/08/2010 FLAQUITA MCDUFFIE APRN 719.41 JOINT PAIN, LOCALIZED IN THE SHOULDER 05/08/2010 BEAR DO, DANIELA K 719.41 JOINT PAIN, LOCALIZED IN THE SHOULDER 03/06/2011 BEAR DO, DANIELA K 216.9 Pigmented Nevus 03/06/2011 DANIELA BEAR DO K V04.81 Flu Dx (3 Yrs And Above, Im) 03/06/2011 PURVI BEAR DOA K V58.69 taking high-risk medication 03/06/2011 DANIELA BEAR DO K 216.9 Pigmented Nevus 03/06/2011 DANIELA BEAR DO K V04.81 Flu Dx (3 Yrs And Above, Im) 03/06/2011 DANIELA BEAR DO K V58.69 taking high-risk medication 03/06/2011 DANIELA BEAR DO K 216.9 Pigmented Nevus 03/06/2011 DANIELA BEAR DO K V04.81 Flu Dx (3 Yrs And Above, Im) 03/06/2011 PURVI BEAR DOA K V58.69 taking high-risk medication 03/06/2011 DANIELA BEAR DO K 216.9 Pigmented Nevus 03/06/2011 DANIELA BEAR DO K V04.81 Flu Dx (3 Yrs And Above, Im) 03/06/2011 DANIELA BEAR DO V58.69 taking high-risk medication 03/06/2011 DANIELA BEAR DO K 216.9 Pigmented Nevus 03/06/2011 DANIELA BEAR DO K V04.81 Flu Dx (3 Yrs And Above, Im) 03/06/2011 PURVI BEAR DOA K V58.69 taking high-risk medication 03/06/2011 DANIELA BEAR DO K 216.9 Pigmented Nevus 03/06/2011 DANIELA BEAR DO K V04.81 Flu Dx (3 Yrs And Above, Im) 03/06/2011 DANIELA BEAR DO K V58.69 taking high-risk medication 03/06/2011 216.9 Pigmented Nevus 03/06/2011 V04.81 Flu Dx (3 Yrs And Above, Im) 03/06/2011 V58.69 taking high- risk medication 03/06/2011 216.9 Pigmented Nevus 03/06/2011 V04.81 Flu Dx (3 Yrs And Above, Im) 03/06/2011 V58.69 taking high- risk medication 03/06/2011 216.9 Pigmented Nevus 03/06/2011 V04.81 Flu Dx (3 Yrs And Above, Im) 03/06/2011 V58.69 taking high- risk medication 03/06/2011 216.9 Pigmented Nevus 03/06/2011 V04.81 Flu Dx (3 Yrs And Above, Im) 03/06/2011 V58.69 taking high- risk medication 03/06/2011 216.9 Pigmented Nevus 03/06/2011 V04.81 Flu Dx (3 Yrs And Above, Im) 03/06/2011 V58.69 taking high- risk medication 03/06/2011 BEAR DO DANIELA K 216.9 Pigmented Nevus 03/06/2011 BEAR DO DANIELA K V04.81 Flu Dx (3 Yrs And Above, Im) 03/06/2011 BEAR DO DANIELA K V58.69 taking high-risk medication 03/06/2011 BEAR DO, DANIELA K 216.9 Pigmented Nevus 03/06/2011 BEAR DO, DANIELA K V04.81 Flu Dx (3 Yrs And Above, Im) 03/06/2011 BEAR DO DANIELA K V58.69 taking high-risk medication 03/06/2011 BEAR DO DANIELA K 216.9 Pigmented Nevus 03/06/2011 BEAR DO DANIELA K V04.81 Flu Dx (3 Yrs And Above, Im) 03/06/2011 BEAR DO DANIELA K V58.69 taking high-risk medication 03/06/2011 BEAR DO, DANIELA K 216.9 Pigmented Nevus 03/06/2011 BEAR DO, DANIELA K V04.81 Flu Dx (3 Yrs And Above, Im) 03/06/2011 BEAR DO DANIELA K V58.69 taking high-risk medication 03/06/2011 BEAR DO, DANIELA K 216.9 Pigmented Nevus 03/06/2011 BEAR DO DANIELA K V04.81 Flu Dx (3 Yrs And Above, Im) 03/06/2011 BEAR DO DANIELA K V58.69 taking high-risk medication 03/06/2011 BEAR DO, DANIELA K 216.9 Pigmented Nevus 03/06/2011 BAER DO, DANIELA K V04.81 Flu Dx (3 Yrs And Above, Im) 03/06/2011 BEAR DO DANIELA K V58.69 taking high-risk medication 03/06/2011 BEAR DO, DANIELA K 216.9 Pigmented Nevus 03/06/2011 BEAR DO, DANIELA K V04.81 Flu Dx (3 Yrs And Above, Im) 03/06/2011 BEAR DO DANIELA K V58.69 taking high-risk medication 03/06/2011 BEAR DO, DANIELA K 216.9 Pigmented Nevus 03/06/2011 BEAR DO, DANIELA K V04.81 Flu Dx (3 Yrs And Above, Im) 03/06/2011 BEAR DO, DANIELA K V58.69 taking high-risk medication 03/06/2011 BEAR DO, DANIELA K 216.9 Pigmented Nevus 03/06/2011 BEAR DO, DANIELA K V04.81 Flu Dx (3 Yrs And Above, Im) 03/06/2011 BEAR DO, DANIELA K V58.69 taking high-risk medication 03/06/2011 BEAR DO, DANIELA K 216.9 Pigmented Nevus 03/06/2011 BEAR DO, DANIELA K V04.81 Flu Dx (3 Yrs And Above, Im) 03/06/2011 BEAR DO, DANIELA K V58.69 taking high-risk medication 03/06/2011 BEAR DO DANIELA K 216.9 Pigmented Nevus 03/06/2011 BEAR DO, ADNIELA K V04.81 Flu Dx (3 Yrs And Above, Im) 03/06/2011 BEAR DO DANIELA K V58.69 taking high-risk medication 03/06/2011 FROY BIOMEDICAL MANAGER, FLAQUITA S 216.9 Pigmented Nevus 03/06/2011 FROY BIOMEDICAL MANAGER, FLAQUITA S V04.81 Flu Dx (3 Yrs And Above, Im) 03/06/2011 FROY BIOMEDICAL MANAGER, FLAQUITA S V58.69 taking high-risk medication 03/06/2011 BEAR DO DANIELA K 216.9 Pigmented Nevus 03/06/2011 BEAR DO, DANIELA K V04.81 Flu Dx (3 Yrs And Above, Im) 03/06/2011 BEAR DO, DANIELA K V58.69 taking high-risk medication 03/06/2011 BEAR DO, DANIELA K 216.9 Pigmented Nevus 03/06/2011 BEAR DO, DANIELA K V04.81 Flu Dx (3 Yrs And Above, Im) 03/06/2011 BEAR DO, DANIELA K V58.69 taking high-risk medication 03/06/2011 BEAR DO, DANIELA K 216.9 Pigmented Nevus 03/06/2011 BEAR DO, DANIELA K V04.81 Flu Dx (3 Yrs And Above, Im) 03/06/2011 BEAR DO, DANIELA K V58.69 taking high-risk medication 03/06/2011 BEAR DO DANIELA K 216.9 Pigmented Nevus 03/06/2011 BEAR DO DANIELA K V04.81 Flu Dx (3 Yrs And Above, Im) 03/06/2011 BEAR DO DANIELA K V58.69 taking high-risk medication 03/06/2011 BEAR DO DANIELA K 216.9 Pigmented Nevus 03/06/2011 BEAR DO DANIELA K V04.81 Flu Dx (3 Yrs And Above, Im) 03/06/2011 BEAR DO DANIELA K V58.69 taking high-risk medication 03/06/2011 BEAR DO DANIELA K 216.9 Pigmented Nevus 03/06/2011 BEAR DO DANIELA K V04.81 Flu Dx (3 Yrs And Above, Im) 03/06/2011 BEAR DO DANIELA K V58.69 taking high-risk medication 03/06/2011 BEAR DO DANIELA K 216.9 Pigmented Nevus 03/06/2011 BEAR DO DANIELA K V04.81 Flu Dx (3 Yrs And Above, Im) 03/06/2011 BEAR DO DANIELA K V58.69 taking high-risk medication 03/06/2011 BEAR DO DANIELA K 216.9 Pigmented Nevus 03/06/2011 BEAR DO DANIELA K V04.81 Flu Dx (3 Yrs And Above, Im) 03/06/2011 DANIELA BEAR DO K V58.69 taking high-risk medication 03/06/2011 VASQUEZ PAZ MD 216.9 Pigmented Nevus 03/06/2011 VASQUEZ PAZ MD V04.81 Flu Dx (3 Yrs And Above, Im) 03/06/2011 AVSQUEZ PAZ MD V58.69 taking high-risk medication 03/06/2011 BEAR DO DANIELA K 216.9 Pigmented Nevus 03/06/2011 BEAR DO DANIELA K V04.81 Flu Dx (3 Yrs And Above, Im) 03/06/2011 BEAR DO DANIELA K V58.69 taking high-risk medication 03/06/2011 BEAR DO DANIELA K 216.9 Pigmented Nevus 03/06/2011 BEAR DO DANIELA K V04.81 Flu Dx (3 Yrs And Above, Im) 03/06/2011 DANIELA BEAR DO V58.69 taking high-risk medication 03/06/2011 VASQUEZ PAZ MD 216.9 Pigmented Nevus 03/06/2011 VASQUEZ PAZ MD V04.81 Flu Dx (3 Yrs And Above, Im) 03/06/2011 VASQUEZ PAZ MD V58.69 taking high-risk medication 03/06/2011 BEAR DO DANIELA K 216.9 Pigmented Nevus 03/06/2011 PURVI BEAR DOA K V04.81 Flu Dx (3 Yrs And Above, Im) 03/06/2011 PURVI BEAR DOA Rito V58.69 taking high-risk medication 03/06/2011 BEAR DO DANIELA K 216.9 Pigmented Nevus 03/06/2011 PURVI BEAR DOA K V04.81 Flu Dx (3 Yrs And Above, Im) 03/06/2011 DANIELA BEAR DO V58.69 taking high-risk medication 03/06/2011 PURVI BEAR DOA K 216.9 Pigmented Nevus 03/06/2011 DANIELA BEAR DO V04.81 Flu Dx (3 Yrs And Above, Im) 03/06/2011 DANIELA BEAR DO V58.69 taking high-risk medication 03/06/2011 WESTON MARINA PA-C 216.9 Pigmented Nevus 03/06/2011 WESTON MARINA PA-C V04.81 Flu Dx (3 Yrs And Above, Im) 03/06/2011 WESTON MARINA PA-C V58.69 taking high-risk medication 03/06/2011 DANIELA BEAR DO K 216.9 Pigmented Nevus 03/06/2011 DANIELA BEAR DO V04.81 Flu Dx (3 Yrs And Above, Im) 03/06/2011 DANIELA BEAR DO V58.69 taking high-risk medication 03/06/2011 PURVI BEAR DOA K 216.9 Pigmented Nevus 03/06/2011 PURVI BEAR DOA K V04.81 Flu Dx (3 Yrs And Above, Im) 03/06/2011 DANIELA BEAR DO V58.69 taking high-risk medication 03/06/2011 BEAR DO DANIELA K 216.9 Pigmented Nevus 03/06/2011 MARIANELA PHILIP DANIELA K V04.81 Flu Dx (3 Yrs And Above, Im) 03/06/2011 BEAR DO, DANIELA K V58.69 taking high-risk medication 03/06/2011 KATIEE BIOMEDICAL MANAGER, ROSA A 216.9 Pigmented Nevus 03/06/2011 DARRIUS BIOMEDICAL MANAGER, ROSA A V04.81 Flu Dx (3 Yrs And Above, Im) 03/06/2011 DARRIUS BIOMEDICAL MANAGER ROSA A V58.69 taking high-risk medication 03/06/2011 BEAR DO DANIELA K 216.9 Pigmented Nevus 03/06/2011 BEAR DO, DANIELA K V04.81 Flu Dx (3 Yrs And Above, Im) 03/06/2011 BEAR DO DANIELA K V58.69 taking high-risk medication 03/06/2011 BEAR DO, DANIELA K 216.9 Pigmented Nevus 03/06/2011 BEAR DO, DANIELA K V04.81 Flu Dx (3 Yrs And Above, Im) 03/06/2011 BEAR DO DANIELA K V58.69 taking high-risk medication 03/06/2011 BEAR DO DANIELA K 216.9 Pigmented Nevus 03/06/2011 BEAR DO, DANIELA K V04.81 Flu Dx (3 Yrs And Above, Im) 03/06/2011 BEAR DO, DANIELA K V58.69 taking high-risk medication 03/06/2011 BEAR DO, DANIELA K 216.9 Pigmented Nevus 03/06/2011 BEAR DO, DANIELA K V04.81 Flu Dx (3 Yrs And Above, Im) 03/06/2011 BEAR DO DANIELA K V58.69 taking high-risk medication 03/06/2011 BEAR DO, DANIELA K 216.9 Pigmented Nevus 03/06/2011 BEAR DO DANIELA K V04.81 Flu Dx (3 Yrs And Above, Im) 03/06/2011 BEAR DO DANIELA K V58.69 taking high-risk medication 03/06/2011 FROY BIOMEDICAL MANAGER, FLAQUITA S 216.9 Pigmented Nevus 03/06/2011 FROY BIOMEDICAL MANAGER, FLAQUITA S V04.81 Flu Dx (3 Yrs And Above, Im) 03/06/2011 FROY BIOMEDICAL MANAGER, FLAQUITA S V58.69 taking high-risk medication 03/06/2011 BEAR DO, DANIELA K 216.9 Pigmented Nevus 03/06/2011 BEAR DO, DANIELA K V04.81 Flu Dx (3 Yrs And Above, Im) 03/06/2011 MARIANELA PHILIP DANIELA K V58.69 taking high-risk medication 04/18/2011 MARIANELA PHILIP DANIELA K 239.2 Neoplasm Of Unspecified Nature Of Bone Soft Tissue And Skin 04/18/2011 BEAR DO, DANIELA K 239.2 Neoplasm Of Unspecified Nature Of Bone Soft Tissue And Skin 04/18/2011 BEAR DO DANIELA K 239.2 Neoplasm Of Unspecified Nature Of Bone Soft Tissue And Skin 04/18/2011 BEAR DO, DANIELA K 239.2 Neoplasm Of Unspecified Nature Of Bone Soft Tissue And Skin 04/18/2011 BEAR DO, DANIELA K 239.2 Neoplasm Of Unspecified Nature Of Bone Soft Tissue And Skin 04/18/2011 BEAR DO, DANIELA K 239.2 Neoplasm Of Unspecified Nature Of Bone Soft Tissue And Skin 04/18/2011 239.2 Neoplasm Of Unspecified Nature Of Bone Soft Tissue And Skin 04/18/2011 239.2 Neoplasm Of Unspecified Nature Of Bone Soft Tissue And Skin 04/18/2011 239.2 Neoplasm Of Unspecified Nature Of Bone Soft Tissue And Skin 04/18/2011 239.2 Neoplasm Of Unspecified Nature Of Bone Soft Tissue And Skin 04/18/2011 239.2 Neoplasm Of Unspecified Nature Of Bone Soft Tissue And Skin 04/18/2011 MARIANELA PHILIP, DANIELA K 239.2 Neoplasm Of Unspecified Nature Of Bone Soft Tissue And Skin 04/18/2011 BEAR DO, DANIELA K 239.2 Neoplasm Of Unspecified Nature Of Bone Soft Tissue And Skin 04/18/2011 BEAR , DANIELA K 239.2 Neoplasm Of Unspecified Nature Of Bone Soft Tissue And Skin 04/18/2011 MARIANELA PHILIP, DANIELA K 239.2 Neoplasm Of Unspecified Nature Of Bone Soft Tissue And Skin 04/18/2011 BEAR DO, DANIELA K 239.2 Neoplasm Of Unspecified Nature Of Bone Soft Tissue And Skin 04/18/2011 BEAR DO, DANIELA K 239.2 Neoplasm Of Unspecified Nature Of Bone Soft Tissue And Skin 04/18/2011 BEAR DO, DANIELA K 239.2 Neoplasm Of Unspecified Nature Of Bone Soft Tissue And Skin 04/18/2011 BEAR DO, DANIELA K 239.2 Neoplasm Of Unspecified Nature Of Bone Soft Tissue And Skin 04/18/2011 BEAR DO, DANIELA K 239.2 Neoplasm Of Unspecified Nature Of Bone Soft Tissue And Skin 04/18/2011 BEAR DO, DANIELA K 239.2 Neoplasm Of Unspecified Nature Of Bone Soft Tissue And Skin 04/18/2011 BEAR DO, DANIELA K 239.2 Neoplasm Of Unspecified Nature Of Bone Soft Tissue And Skin 04/18/2011 FLAQUITA MCDUFFIE APRN 239.2 Neoplasm Of Unspecified Nature Of Bone Soft Tissue And Skin 04/18/2011 BEAR DO, DANIELA K 239.2 Neoplasm Of Unspecified Nature Of Bone Soft Tissue And Skin 04/18/2011 BEAR DO, DANIELA K 239.2 Neoplasm Of Unspecified Nature Of Bone Soft Tissue And Skin 04/18/2011 BEAR DO, DANIELA K 239.2 Neoplasm Of Unspecified Nature Of Bone Soft Tissue And Skin 04/18/2011 BEAR DO, DANIELA K 239.2 Neoplasm Of Unspecified Nature Of Bone Soft Tissue And Skin 04/18/2011 BEAR DO, DANIELA K 239.2 Neoplasm Of Unspecified Nature Of Bone Soft Tissue And Skin 04/18/2011 BEAR DO, DANIELA K 239.2 Neoplasm Of Unspecified Nature Of Bone Soft Tissue And Skin 04/18/2011 BEAR DO, DANIELA K 239.2 Neoplasm Of Unspecified Nature Of Bone Soft Tissue And Skin 04/18/2011 BEAR DO, DANIELA K 239.2 Neoplasm Of Unspecified Nature Of Bone Soft Tissue And Skin 04/18/2011 VASQUEZ PAZ MD 239.2 Neoplasm Of Unspecified Nature Of Bone Soft Tissue And Skin 04/18/2011 BEAR DO, DANIELA K 239.2 Neoplasm Of Unspecified Nature Of Bone Soft Tissue And Skin 04/18/2011 BEAR DO, DANIELA K 239.2 Neoplasm Of Unspecified Nature Of Bone Soft Tissue And Skin 04/18/2011 VASQUEZ PAZ MD 239.2 Neoplasm Of Unspecified Nature Of Bone Soft Tissue And Skin 04/18/2011 BEAR DO, DANIELA K 239.2 Neoplasm Of Unspecified Nature Of Bone Soft Tissue And Skin 04/18/2011 BEAR DO, DANIELA K 239.2 Neoplasm Of Unspecified Nature Of Bone Soft Tissue And Skin 04/18/2011 BEAR DO, DANIELA K 239.2 Neoplasm Of Unspecified Nature Of Bone Soft Tissue And Skin 04/18/2011 WESTON MARINA PA-C 239.2 Neoplasm Of Unspecified Nature Of Bone Soft Tissue And Skin 04/18/2011 BEAR DO, DANIELA K 239.2 Neoplasm Of Unspecified Nature Of Bone Soft Tissue And Skin 04/18/2011 BEAR DO, DANIELA K 239.2 Neoplasm Of Unspecified Nature Of Bone Soft Tissue And Skin 04/18/2011 BEAR DO, DANIELA K 239.2 Neoplasm Of Unspecified Nature Of Bone Soft Tissue And Skin 04/18/2011 DARRIUS DONALDSONNROSA A 239.2 Neoplasm Of Unspecified Nature Of Bone Soft Tissue And Skin 04/18/2011 BEAR DO, DANIELA K 239.2 Neoplasm Of Unspecified Nature Of Bone Soft Tissue And Skin 04/18/2011 BEAR DO, DANIELA K 239.2 Neoplasm Of Unspecified Nature Of Bone Soft Tissue And Skin 04/18/2011 BEAR DO, DANIELA K 239.2 Neoplasm Of Unspecified Nature Of Bone Soft Tissue And Skin 04/18/2011 BEAR DO, DANIELA K 239.2 Neoplasm Of Unspecified Nature Of Bone Soft Tissue And Skin 04/18/2011 BEAR DO, DANIELA K 239.2 Neoplasm Of Unspecified Nature Of Bone Soft Tissue And Skin 04/18/2011 FROY FLORENCE FLQAUITA S 239.2 Neoplasm Of Unspecified Nature Of Bone Soft Tissue And Skin 04/18/2011 BEAR DO, DANIELA K 239.2 Neoplasm Of Unspecified Nature Of Bone Soft Tissue And Skin 04/29/2011 BEAR DO, DANIELA K 682.9 Cellulitis And Abscess Of Unspecified Sites 04/29/2011 BEAR DO, DANIELA K 682.9 Cellulitis And Abscess Of Unspecified Sites 04/29/2011 BEAR DO, DANIELA K 682.9 Cellulitis And Abscess Of Unspecified Sites 04/29/2011 BEAR DO, DANIELA K 682.9 Cellulitis And Abscess Of Unspecified Sites 04/29/2011 BEAR DO, DANIELA K 682.9 Cellulitis And Abscess Of Unspecified Sites 04/29/2011 BEAR DO, DANIELA K 682.9 Cellulitis And Abscess Of Unspecified Sites 04/29/2011 682.9 Cellulitis And Abscess Of Unspecified Sites 04/29/2011 682.9 Cellulitis And Abscess Of Unspecified Sites 04/29/2011 682.9 Cellulitis And Abscess Of Unspecified Sites 04/29/2011 682.9 Cellulitis And Abscess Of Unspecified Sites 04/29/2011 682.9 Cellulitis And Abscess Of Unspecified Sites 04/29/2011 BEAR DO, DANIELA K 682.9 Cellulitis And Abscess Of Unspecified Sites 04/29/2011 BEAR DO, DANIELA K 682.9 Cellulitis And Abscess Of Unspecified Sites 04/29/2011 BEAR DO, DANIELA K 682.9 Cellulitis And Abscess Of Unspecified Sites 04/29/2011 BEAR DO, DANIELA K 682.9 Cellulitis And Abscess Of Unspecified Sites 04/29/2011 BEAR DO, DANIELA K 682.9 Cellulitis And Abscess Of Unspecified Sites 04/29/2011 BEAR DO, DANIELA K 682.9 Cellulitis And Abscess Of Unspecified Sites 04/29/2011 BEAR DO, DANIELA K 682.9 Cellulitis And Abscess Of Unspecified Sites 04/29/2011 BEAR DO, DANIELA K 682.9 Cellulitis And Abscess Of Unspecified Sites 04/29/2011 BEAR DO, DANIELA K 682.9 Cellulitis And Abscess Of Unspecified Sites 04/29/2011 BEAR DO, DANIELA K 682.9 Cellulitis And Abscess Of Unspecified Sites 04/29/2011 BEAR DO, DANIELA K 682.9 Cellulitis And Abscess Of Unspecified Sites 04/29/2011 FLAQUITA MCDUFFIE APRN 682.9 Cellulitis And Abscess Of Unspecified Sites 04/29/2011 BEAR DO, DANIELA K 682.9 Cellulitis And Abscess Of Unspecified Sites 04/29/2011 BEAR DO, DANIELA K 682.9 Cellulitis And Abscess Of Unspecified Sites 04/29/2011 BEAR DO, DANIELA K 682.9 Cellulitis And Abscess Of Unspecified Sites 04/29/2011 BEAR DO, DANIELA K 682.9 Cellulitis And Abscess Of Unspecified Sites 04/29/2011 BEAR DO, DANIELA K 682.9 Cellulitis And Abscess Of Unspecified Sites 04/29/2011 BEAR DO, DANIELA K 682.9 Cellulitis And Abscess Of Unspecified Sites 04/29/2011 BEAR DO, DANIELA K 682.9 Cellulitis And Abscess Of Unspecified Sites 04/29/2011 BEAR DO, DANIELA K 682.9 Cellulitis And Abscess Of Unspecified Sites 04/29/2011 VASQUEZ PAZ MD 682.9 Cellulitis And Abscess Of Unspecified Sites 04/29/2011 BEAR DO, DANIELA K 682.9 Cellulitis And Abscess Of Unspecified Sites 04/29/2011 BEAR DO, DANIELA K 682.9 Cellulitis And Abscess Of Unspecified Sites 04/29/2011 JACKSON YEH, VASQUEZ 682.9 Cellulitis And Abscess Of Unspecified Sites 04/29/2011 BEAR DO, DANIELA K 682.9 Cellulitis And Abscess Of Unspecified Sites 04/29/2011 BEAR DO, DANIELA K 682.9 Cellulitis And Abscess Of Unspecified Sites 04/29/2011 BEAR DO, DANIELA K 682.9 Cellulitis And Abscess Of Unspecified Sites 04/29/2011 WESTON MARINA PA-C 682.9 Cellulitis And Abscess Of Unspecified Sites 04/29/2011 BEAR DO, DANIELA K 682.9 Cellulitis And Abscess Of Unspecified Sites 04/29/2011 BEAR DO, DANIELA K 682.9 Cellulitis And Abscess Of Unspecified Sites 04/29/2011 BEAR DO, DANIELA K 682.9 Cellulitis And Abscess Of Unspecified Sites 04/29/2011 ROSA RIZO APRN 682.9 Cellulitis And Abscess Of Unspecified Sites 04/29/2011 BEAR DO, DANIELA K 682.9 Cellulitis And Abscess Of Unspecified Sites 04/29/2011 BEAR DO, DANIELA K 682.9 Cellulitis And Abscess Of Unspecified Sites 04/29/2011 BEAR DO, DANIELA K 682.9 Cellulitis And Abscess Of Unspecified Sites 04/29/2011 BEAR DO, DANIELA K 682.9 Cellulitis And Abscess Of Unspecified Sites 04/29/2011 BEAR DO, DANIELA K 682.9 Cellulitis And Abscess Of Unspecified Sites 04/29/2011 FLAQUITA MCDUFFIE APRN 682.9 Cellulitis And Abscess Of Unspecified Sites 04/29/2011 BEAR DO, DANIELA K 682.9 Cellulitis And Abscess Of Unspecified Sites 05/03/2011 BEAR DO, DANIELA K 535.50 Unspecified Gastritis And Gastroduodenitis (without Hemorrhage) 05/03/2011 BEAR DO, DANIELA K 535.50 Unspecified Gastritis And Gastroduodenitis (without Hemorrhage) 05/03/2011 BEAR DO, DANIELA K 535.50 Unspecified Gastritis And Gastroduodenitis (without Hemorrhage) 05/03/2011 BEAR DO, DANIELA K 535.50 Unspecified Gastritis And Gastroduodenitis (without Hemorrhage) 05/03/2011 BEAR DO, DANIELA K 535.50 Unspecified Gastritis And Gastroduodenitis (without Hemorrhage) 05/03/2011 BEAR DO, DANIELA K 535.50 Unspecified Gastritis And Gastroduodenitis (without Hemorrhage) 05/03/2011 535.50 Unspecified Gastritis And Gastroduodenitis (without Hemorrhage) 05/03/2011 535.50 Unspecified Gastritis And Gastroduodenitis (without Hemorrhage) 05/03/2011 535.50 Unspecified Gastritis And Gastroduodenitis (without Hemorrhage) 05/03/2011 535.50 Unspecified Gastritis And Gastroduodenitis (without Hemorrhage) 05/03/2011 535.50 Unspecified Gastritis And Gastroduodenitis (without Hemorrhage) 05/03/2011 BEAR DO, DANIELA K 535.50 Unspecified Gastritis And Gastroduodenitis (without Hemorrhage) 05/03/2011 BEAR DO, DANIELA K 535.50 Unspecified Gastritis And Gastroduodenitis (without Hemorrhage) 05/03/2011 BEAR DO, DANIELA K 535.50 Unspecified Gastritis And Gastroduodenitis (without Hemorrhage) 05/03/2011 BEAR DO, DANIELA K 535.50 Unspecified Gastritis And Gastroduodenitis (without Hemorrhage) 05/03/2011 BEAR DO, DANIELA K 535.50 Unspecified Gastritis And Gastroduodenitis (without Hemorrhage) 05/03/2011 BEAR DO, DANIELA K 535.50 Unspecified Gastritis And Gastroduodenitis (without Hemorrhage) 05/03/2011 BEAR DO, DANIELA K 535.50 Unspecified Gastritis And Gastroduodenitis (without Hemorrhage) 05/03/2011 BEAR DO, DANIELA K 535.50 Unspecified Gastritis And Gastroduodenitis (without Hemorrhage) 05/03/2011 BEAR DO, DANIELA K 535.50 Unspecified Gastritis And Gastroduodenitis (without Hemorrhage) 05/03/2011 BEAR DO, DANIELA K 535.50 Unspecified Gastritis And Gastroduodenitis (without Hemorrhage) 05/03/2011 BEAR DO, DANIELA K 535.50 Unspecified Gastritis And Gastroduodenitis (without Hemorrhage) 05/03/2011 FROY BIOMEDICAL MANAGERFLAQUITA 535.50 Unspecified Gastritis And Gastroduodenitis (without Hemorrhage) 05/03/2011 BEAR DO, DANIELA K 535.50 Unspecified Gastritis And Gastroduodenitis (without Hemorrhage) 05/03/2011 BEAR DO, DANIELA K 535.50 Unspecified Gastritis And Gastroduodenitis (without Hemorrhage) 05/03/2011 BEAR DO, DANIELA K 535.50 Unspecified Gastritis And Gastroduodenitis (without Hemorrhage) 05/03/2011 BEAR DO, DANIELA K 535.50 Unspecified Gastritis And Gastroduodenitis (without Hemorrhage) 05/03/2011 BEAR DO, DANIELA K 535.50 Unspecified Gastritis And Gastroduodenitis (without Hemorrhage) 05/03/2011 BEAR DO, DANIELA K 535.50 Unspecified Gastritis And Gastroduodenitis (without Hemorrhage) 05/03/2011 BEAR DO, DANIELA K 535.50 Unspecified Gastritis And Gastroduodenitis (without Hemorrhage) 05/03/2011 BEAR DO, DANIELA K 535.50 Unspecified Gastritis And Gastroduodenitis (without Hemorrhage) 05/03/2011 VASQUEZ PAZ MD 535.50 Unspecified Gastritis And Gastroduodenitis (without Hemorrhage) 05/03/2011 BEAR DO, DANIELA K 535.50 Unspecified Gastritis And Gastroduodenitis (without Hemorrhage) 05/03/2011 BEAR DO, DANIELA K 535.50 Unspecified Gastritis And Gastroduodenitis (without Hemorrhage) 05/03/2011 VASQUEZ PAZ MD 535.50 Unspecified Gastritis And Gastroduodenitis (without Hemorrhage) 05/03/2011 BEAR DO, DANIELA K 535.50 Unspecified Gastritis And Gastroduodenitis (without Hemorrhage) 05/03/2011 BEAR DO, DANIELA K 535.50 Unspecified Gastritis And Gastroduodenitis (without Hemorrhage) 05/03/2011 BEAR DO, DANIELA K 535.50 Unspecified Gastritis And Gastroduodenitis (without Hemorrhage) 05/03/2011 WESTON MARINA PA-C 535.50 Unspecified Gastritis And Gastroduodenitis (without Hemorrhage) 05/03/2011 BEAR DO, DANIELA K 535.50 Unspecified Gastritis And Gastroduodenitis (without Hemorrhage) 05/03/2011 BEAR DO, DANIELA K 535.50 Unspecified Gastritis And Gastroduodenitis (without Hemorrhage) 05/03/2011 BEAR DO, DANIELA K 535.50 Unspecified Gastritis And Gastroduodenitis (without Hemorrhage) 05/03/2011 DARRIUS FLORENCEROSA A 535.50 Unspecified Gastritis And Gastroduodenitis (without Hemorrhage) 05/03/2011 BEAR DO, DANIELA K 535.50 Unspecified Gastritis And Gastroduodenitis (without Hemorrhage) 05/03/2011 BEAR DO, DANIELA K 535.50 Unspecified Gastritis And Gastroduodenitis (without Hemorrhage) 05/03/2011 BEAR DO, DANIELA K 535.50 Unspecified Gastritis And Gastroduodenitis (without Hemorrhage) 05/03/2011 BEAR DO, DANIELA K 535.50 Unspecified Gastritis And Gastroduodenitis (without Hemorrhage) 05/03/2011 BEAR DO, DANIELA K 535.50 Unspecified Gastritis And Gastroduodenitis (without Hemorrhage) 05/03/2011 FLAQUITA MCDUFFIE APRN 535.50 Unspecified Gastritis And Gastroduodenitis (without Hemorrhage) 05/03/2011 BEAR DO, DANIELA K 535.50 Unspecified Gastritis And Gastroduodenitis (without Hemorrhage) 05/06/2011 BEAR DO, DANIELA K V58.31 Wound Dressing 05/06/2011 BEAR DO, DANIELA K V58.31 Wound Dressing 05/06/2011 BEAR DO, DANIELA K V58.31 Wound Dressing 05/06/2011 BEAR DO, DANIELA K V58.31 Wound Dressing 05/06/2011 BEAR DO, DANIELA K V58.31 Wound Dressing 05/06/2011 BEAR DO, DANIELA K V58.31 Wound Dressing 05/06/2011 V58.31 Wound Dressing 05/06/2011 V58.31 Wound Dressing 05/06/2011 V58.31 Wound Dressing 05/06/2011 V58.31 Wound Dressing 05/06/2011 V58.31 Wound Dressing 05/06/2011 BEAR DO, DANIELA K V58.31 Wound Dressing 05/06/2011 BEAR DO, DANIELA K V58.31 Wound Dressing 05/06/2011 BEAR DO, DANIELA K V58.31 Wound Dressing 05/06/2011 BEAR DO, DANIELA K V58.31 Wound Dressing 05/06/2011 BEAR DO, DANIELA K V58.31 Wound Dressing 05/06/2011 BEAR DO, DANIELA K V58.31 Wound Dressing 05/06/2011 BEAR DO, DANIELA K V58.31 Wound Dressing 05/06/2011 BEAR DO, DANIELA K V58.31 Wound Dressing 05/06/2011 BEAR DO, DANIELA K V58.31 Wound Dressing 05/06/2011 BEAR DO, DANIELA K V58.31 Wound Dressing 05/06/2011 BEAR DO, DANIELA K V58.31 Wound Dressing 05/06/2011 FLAQUITA MCDUFFIE APRN V58.31 Wound Dressing 05/06/2011 BEAR DO, DANIELA K V58.31 Wound Dressing 05/06/2011 BEAR DO, DANIELA K V58.31 Wound Dressing 05/06/2011 BEAR DO, DANIELA K V58.31 Wound Dressing 05/06/2011 BEAR DO, DANIELA K V58.31 Wound Dressing 05/06/2011 BEAR DO, DANIELA K V58.31 Wound Dressing 05/06/2011 BEAR DO, DANIELA K V58.31 Wound Dressing 05/06/2011 BEAR DO, DANIELA K V58.31 Wound Dressing 05/06/2011 BEAR DO, DANIELA K V58.31 Wound Dressing 05/06/2011 VASQUEZ PAZ MD V58.31 Wound Dressing 05/06/2011 BEAR DO, DANIELA K V58.31 Wound Dressing 05/06/2011 BEAR DO, DANIELA K V58.31 Wound Dressing 05/06/2011 VASQUEZ PAZ MD V58.31 Wound Dressing 05/06/2011 BEAR DO, DANIELA K V58.31 Wound Dressing 05/06/2011 BEAR DO, DANIELA K V58.31 Wound Dressing 05/06/2011 BEAR DO, DANIELA K V58.31 Wound Dressing 05/06/2011 WESTON MARINA PA-C V58.31 Wound Dressing 05/06/2011 BEAR DO, DANIELA K V58.31 Wound Dressing 05/06/2011 BEAR DO, DANIELA K V58.31 Wound Dressing 05/06/2011 BEAR DO, DANIELA K V58.31 Wound Dressing 05/06/2011 ROSA RIZO APRN V58.31 Wound Dressing 05/06/2011 BEAR DO, DANIELA K V58.31 Wound Dressing 05/06/2011 EBAR DO, DANIELA K V58.31 Wound Dressing 05/06/2011 BEAR DO, DANIELA K V58.31 Wound Dressing 05/06/2011 DANIELA BEAR DO V58.31 Wound Dressing 05/06/2011 BEAR DO, DANIELA K V58.31 Wound Dressing 05/06/2011 FLAQUITA MCDUFFIE APRN V58.31 Wound Dressing 05/06/2011 BEAR DODANIELA K V58.31 Wound Dressing 06/07/2011 BEAR DODANIELA V01.79 Contact With Or Exposure To Other Viral Diseases 06/07/2011 DANIELA BEAR DO V70.0 Routine General Medical Examination At A Health Care Facility 06/07/2011 DANIELA BEAR DO V01.79 Contact With Or Exposure To Other Viral Diseases 06/07/2011 DANIELA BEAR DO K V70.0 Routine General Medical Examination At A Health Care Facility 06/07/2011 DANIELA BEAR DO V01.79 Contact With Or Exposure To Other Viral Diseases 06/07/2011 DANIELA BEAR DO V70.0 Routine General Medical Examination At A Health Care Facility 06/07/2011 DANIELA BEAR DO V01.79 Contact With Or Exposure To Other Viral Diseases 06/07/2011 DANIELA BEAR DO V70.0 Routine General Medical Examination At A Health Care Facility 06/07/2011 DANIELA BEAR DO V01.79 Contact With Or Exposure To Other Viral Diseases 06/07/2011 DANIELA BEAR DO V70.0 Routine General Medical Examination At A Health Care Facility 06/07/2011 DANIELA BEAR DO V01.79 Contact With Or Exposure To Other Viral Diseases 06/07/2011 DANIELA BEAR DO V70.0 Routine General Medical Examination At A Health Care Facility 06/07/2011 V01.79 Contact With Or Exposure To Other Viral Diseases 06/07/2011 V70.0 Routine General Medical Examination At A Health Care Facility 06/07/2011 V01.79 Contact With Or Exposure To Other Viral Diseases 06/07/2011 V70.0 Routine General Medical Examination At A Health Care Facility 06/07/2011 V01.79 Contact With Or Exposure To Other Viral Diseases 06/07/2011 V70.0 Routine General Medical Examination At A Health Care Facility 06/07/2011 V01.79 Contact With Or Exposure To Other Viral Diseases 06/07/2011 V70.0 Routine General Medical Examination At A Health Care Facility 06/07/2011 V01.79 Contact With Or Exposure To Other Viral Diseases 06/07/2011 V70.0 Routine General Medical Examination At A Health Care Facility 06/07/2011 MARIANELA DOPURVIA K V01.79 Contact With Or Exposure To Other Viral Diseases 06/07/2011 BEAR DO, DANIELA K V70.0 Routine General Medical Examination At A Health Care Facility 06/07/2011 BEAR DOPURVIA K V01.79 Contact With Or Exposure To Other Viral Diseases 06/07/2011 MARIANELA DO DANIELA K V70.0 Routine General Medical Examination At A Health Care Facility 06/07/2011 MARIANELA DO DANIELA K V01.79 Contact With Or Exposure To Other Viral Diseases 06/07/2011 BEAR DO DANIELA K V70.0 Routine General Medical Examination At A Health Care Facility 06/07/2011 MARIANELA DOPURVIA K V01.79 Contact With Or Exposure To Other Viral Diseases 06/07/2011 MARIANELA DO DANIELA K V70.0 Routine General Medical Examination At A Health Care Facility 06/07/2011 MARIANELA DOPURVIA K V01.79 Contact With Or Exposure To Other Viral Diseases 06/07/2011 MARIANELA DO DANIELA K V70.0 Routine General Medical Examination At A Health Care Facility 06/07/2011 MARIANELA DO DANIELA K V01.79 Contact With Or Exposure To Other Viral Diseases 06/07/2011 MARIANELA DO DANIELA K V70.0 Routine General Medical Examination At A Health Care Facility 06/07/2011 MARIANELA DOPURVIA K V01.79 Contact With Or Exposure To Other Viral Diseases 06/07/2011 MARIANELA DO DANIELA K V70.0 Routine General Medical Examination At A Health Care Facility 06/07/2011 MARIANELA DOPURVIA K V01.79 Contact With Or Exposure To Other Viral Diseases 06/07/2011 BEAR DO DANIELA K V70.0 Routine General Medical Examination At A Health Care Facility 06/07/2011 BEAR DOPURVIA K V01.79 Contact With Or Exposure To Other Viral Diseases 06/07/2011 BEAR DO DANIELA K V70.0 Routine General Medical Examination At A Health Care Facility 06/07/2011 MARIANELA DOPURVIA K V01.79 Contact With Or Exposure To Other Viral Diseases 06/07/2011 MARIANELA DO DANIELA K V70.0 Routine General Medical Examination At A Health Care Facility 06/07/2011 PURVI BEAR DOA Rito V01.79 Contact With Or Exposure To Other Viral Diseases 06/07/2011 MARIANELA DO DANIELA K V70.0 Routine General Medical Examination At A Health Care Facility 06/07/2011 FLAQUITA MCDUFFIE APRN V01.79 Contact With Or Exposure To Other Viral Diseases 06/07/2011 FLAQUITA MCDUFFIE APRN S V70.0 Routine General Medical Examination At A Health Care Facility 06/07/2011 MARIANELA DOPURVIA K V01.79 Contact With Or Exposure To Other Viral Diseases 06/07/2011 MARIANELA DO DANIELA K V70.0 Routine General Medical Examination At A Health Care Facility 06/07/2011 MARIANELA DO DANIELA K V01.79 Contact With Or Exposure To Other Viral Diseases 06/07/2011 MARIANELA DO DANIELA K V70.0 Routine General Medical Examination At A Health Care Facility 06/07/2011 MARIANELA DO DANIELA K V01.79 Contact With Or Exposure To Other Viral Diseases 06/07/2011 MARIANELA DO DANIELA K V70.0 Routine General Medical Examination At A Health Care Facility 06/07/2011 MARIANELA DO DANIELA K V01.79 Contact With Or Exposure To Other Viral Diseases 06/07/2011 BEAR DO DANIELA K V70.0 Routine General Medical Examination At A Health Care Facility 06/07/2011 MARIANELA DOPURVIA K V01.79 Contact With Or Exposure To Other Viral Diseases 06/07/2011 BEAR DO DANIELA K V70.0 Routine General Medical Examination At A Health Care Facility 06/07/2011 MARIANELA DO DANIELA K V01.79 Contact With Or Exposure To Other Viral Diseases 06/07/2011 BEAR DO, DANIELA K V70.0 Routine General Medical Examination At A Health Care Facility 06/07/2011 BEAR DO DANIELA K V01.79 Contact With Or Exposure To Other Viral Diseases 06/07/2011 BEAR DO DANIELA K V70.0 Routine General Medical Examination At A Health Care Facility 06/07/2011 MARIANELA DO DANIELA K V01.79 Contact With Or Exposure To Other Viral Diseases 06/07/2011 BEAR DO DANIELA K V70.0 Routine General Medical Examination At A Health Care Facility 06/07/2011 VASQUEZ PAZ MD V01.79 Contact With Or Exposure To Other Viral Diseases 06/07/2011 VASQUEZ PAZ MD V70.0 Routine General Medical Examination At A Health Care Facility 06/07/2011 DANIELA BEAR DO V01.79 Contact With Or Exposure To Other Viral Diseases 06/07/2011 DANIELA BEAR DO V70.0 Routine General Medical Examination At A Health Care Facility 06/07/2011 DANIELA BEAR DO V01.79 Contact With Or Exposure To Other Viral Diseases 06/07/2011 DANIELA BEAR DO V70.0 Routine General Medical Examination At A Health Care Facility 06/07/2011 VASQUEZ PAZ MD V01.79 Contact With Or Exposure To Other Viral Diseases 06/07/2011 VASQUEZ PAZ MD V70.0 Routine General Medical Examination At A Health Care Facility 06/07/2011 DANIELA BEAR DO V01.79 Contact With Or Exposure To Other Viral Diseases 06/07/2011 DANIELA BEAR DO V70.0 Routine General Medical Examination At A Health Care Facility 06/07/2011 DANIELA BEAR DO V01.79 Contact With Or Exposure To Other Viral Diseases 06/07/2011 DANIELA BEAR DO V70.0 Routine General Medical Examination At A Health Care Facility 06/07/2011 DANIELA BEAR DO V01.79 Contact With Or Exposure To Other Viral Diseases 06/07/2011 DANIELA BEAR DO V70.0 Routine General Medical Examination At A Health Care Facility 06/07/2011 WESTON MARINA PA-C V01.79 Contact With Or Exposure To Other Viral Diseases 06/07/2011 WESTON MARINA PA-C V70.0 Routine General Medical Examination At A Health Care Facility 06/07/2011 DANIELA BEAR DO V01.79 Contact With Or Exposure To Other Viral Diseases 06/07/2011 DANIELA BEAR DO V70.0 Routine General Medical Examination At A Health Care Facility 06/07/2011 DANIELA BEAR DO V01.79 Contact With Or Exposure To Other Viral Diseases 06/07/2011 PURVI BEAR DOA K V70.0 Routine General Medical Examination At A Health Care Facility 06/07/2011 DANIELA BEAR DO V01.79 Contact With Or Exposure To Other Viral Diseases 06/07/2011 PURVI BEAR DOA K V70.0 Routine General Medical Examination At A Health Care Facility 06/07/2011 ROSA RIZO APRN A V01.79 Contact With Or Exposure To Other Viral Diseases 06/07/2011 ROSA RIZO APRN A V70.0 Routine General Medical Examination At A Health Care Facility 06/07/2011 BEAR DO DANIELA K V01.79 Contact With Or Exposure To Other Viral Diseases 06/07/2011 BEAR DO DANEILA K V70.0 Routine General Medical Examination At A Health Care Facility 06/07/2011 BEAR DO DANIELA K V01.79 Contact With Or Exposure To Other Viral Diseases 06/07/2011 BEAR DO, DANIELA K V70.0 Routine General Medical Examination At A Health Care Facility 06/07/2011 BEAR DO DANIELA K V01.79 Contact With Or Exposure To Other Viral Diseases 06/07/2011 BEAR DO DANIELA K V70.0 Routine General Medical Examination At A Health Care Facility 06/07/2011 BEAR DO DANIELA K V01.79 Contact With Or Exposure To Other Viral Diseases 06/07/2011 BEAR DO DANIELA K V70.0 Routine General Medical Examination At A Health Care Facility 06/07/2011 BEAR DO DANIELA K V01.79 Contact With Or Exposure To Other Viral Diseases 06/07/2011 BEAR DO, DANIELA K V70.0 Routine General Medical Examination At A Health Care Facility 06/07/2011 FLAQUITA MCDUFFIE APRN S V01.79 Contact With Or Exposure To Other Viral Diseases 06/07/2011 FLAQUITA MCDUFFIE APRN S V70.0 Routine General Medical Examination At A Health Care Facility 06/07/2011 MARIANELA DO DANIELA K V01.79 Contact With Or Exposure To Other Viral Diseases 06/07/2011 BEAR DO DANIELA K V70.0 Routine General Medical Examination At A Health Care Facility 2011 BEAR DO DANIELA K 586 Renal Failure Unspecified 2011 BEAR DO, DANIELA K 586 Renal Failure Unspecified 2011 BEAR DO, DANIELA K 586 Renal Failure Unspecified 2011 BEAR DO, DANIELA K 586 Renal Failure Unspecified 2011 BEAR DO, DANIELA K 586 Renal Failure Unspecified 2011 BEAR DO, DANIELA K 586 Renal Failure Unspecified 2011 586 Renal Failure Unspecified 2011 586 Renal Failure Unspecified 2011 586 Renal Failure Unspecified 2011 586 Renal Failure Unspecified 2011 586 Renal Failure Unspecified 2011 BEAR DO, DANIELA K 586 Renal Failure Unspecified 2011 BEAR DO, DANIELA K 586 Renal Failure Unspecified 2011 BEAR DO, DANIELA K 586 Renal Failure Unspecified 2011 BEAR DO, DANIELA K 586 Renal Failure Unspecified 2011 BEAR DO, DANIELA K 586 Renal Failure Unspecified 2011 BEAR DO, DANIELA K 586 Renal Failure Unspecified 2011 BEAR DO, DANIELA K 586 Renal Failure Unspecified 2011 BEAR DO, DANIELA K 586 Renal Failure Unspecified 2011 BEAR DO, DANIELA K 586 Renal Failure Unspecified 2011 BEAR DO, DANIELA K 586 Renal Failure Unspecified 2011 BEAR DO, DANILEA K 586 Renal Failure Unspecified 2011 FLAQUITA MCDUFFIE APRN 586 Renal Failure Unspecified 2011 BEAR DO, DANIELA K 586 Renal Failure Unspecified 2011 BEAR DO, DANIELA K 586 Renal Failure Unspecified 2011 BEAR DO, DANIELA K 586 Renal Failure Unspecified 2011 BEAR DO, DANIELA K 586 Renal Failure Unspecified 2011 BEAR DO, DANIELA K 586 Renal Failure Unspecified 2011 EBAR DO, DANIELA K 586 Renal Failure Unspecified 2011 BEAR DO, DANIELA K 586 Renal Failure Unspecified 2011 BEAR DO, DANIELA K 586 Renal Failure Unspecified 2011 VASQUEZ PAZ MD 586 Renal Failure Unspecified 2011 BEAR DO, DANIELA K 586 Renal Failure Unspecified 2011 BEAR DO, DANIELA K 586 Renal Failure Unspecified 2011 VASQUEZ PAZ MD 586 Renal Failure Unspecified 2011 BEAR DO, DANIELA K 586 Renal Failure Unspecified 2011 BEAR DO, DANIELA K 586 Renal Failure Unspecified 2011 BEAR DO, DANIELA K 586 Renal Failure Unspecified 2011 WESTON MARINA PA-C 586 Renal Failure Unspecified 2011 BEAR DO, DANIELA K 586 Renal Failure Unspecified 2011 BEAR DO, DANIELA K 586 Renal Failure Unspecified 2011 BEAR DO, DANIELA K 586 Renal Failure Unspecified 2011 ROSA RIZO APRN 586 Renal Failure Unspecified 2011 BEAR DO, DANIELA K 586 Renal Failure Unspecified 2011 BEAR DO, DANIELA K 586 Renal Failure Unspecified 2011 BEAR DO, DANIELA K 586 Renal Failure Unspecified 2011 BEAR DO, DANIELA K 586 Renal Failure Unspecified 2011 BEAR DO, DANIELA K 586 Renal Failure Unspecified 2011 FLAQUITA MCDUFFIE APRN 586 Renal Failure Unspecified 2011 BEAR DO, DANIELA K 586 Renal Failure Unspecified 06/11/2011 BEAR DO, DANIELA K V05.3 Hep B (ped/adol 3 Dose) Dx 06/11/2011 BEAR DO, DANIELA K V05.3 Hep B (ped/adol 3 Dose) Dx 06/11/2011 BEAR DO, DANIELA K V05.3 Hep B (ped/adol 3 Dose) Dx 06/11/2011 BEAR DO, DANIELA K V05.3 Hep B (ped/adol 3 Dose) Dx 06/11/2011 BEAR DO, DANIELA K V05.3 Hep B (ped/adol 3 Dose) Dx 06/11/2011 BEAR DO, DANIELA K V05.3 Hep B (ped/adol 3 Dose) Dx 06/11/2011 V05.3 Hep B (ped/ adol 3 Dose) Dx 06/11/2011 V05.3 Hep B (ped/ adol 3 Dose) Dx 06/11/2011 V05.3 Hep B (ped/ adol 3 Dose) Dx 06/11/2011 V05.3 Hep B (ped/ adol 3 Dose) Dx 06/11/2011 V05.3 Hep B (ped/ adol 3 Dose) Dx 06/11/2011 BEAR DO, DANIELA K V05.3 Hep B (ped/adol 3 Dose) Dx 06/11/2011 BEAR DO, DANIELA K V05.3 Hep B (ped/adol 3 Dose) Dx 06/11/2011 BEAR DO, DANIELA K V05.3 Hep B (ped/adol 3 Dose) Dx 06/11/2011 BEAR DO, DANIELA K V05.3 Hep B (ped/adol 3 Dose) Dx 06/11/2011 BEAR DO, DANIELA K V05.3 Hep B (ped/adol 3 Dose) Dx 06/11/2011 BEAR DO, DANIELA K V05.3 Hep B (ped/adol 3 Dose) Dx 06/11/2011 BEAR DO, DANIELA K V05.3 Hep B (ped/adol 3 Dose) Dx 06/11/2011 BEAR DO, DANIELA K V05.3 Hep B (ped/adol 3 Dose) Dx 06/11/2011 BEAR DO, DANIELA K V05.3 Hep B (ped/adol 3 Dose) Dx 06/11/2011 BEAR DO, DANIELA K V05.3 Hep B (ped/adol 3 Dose) Dx 06/11/2011 BEAR DO, DANIELA K V05.3 Hep B (ped/adol 3 Dose) Dx 06/11/2011 FLAQUITA MCDUFFIE APRN S V05.3 Hep B (ped/adol 3 Dose) Dx 06/11/2011 BEAR DO, DANIELA K V05.3 Hep B (ped/adol 3 Dose) Dx 06/11/2011 BEAR DO, DANIELA K V05.3 Hep B (ped/adol 3 Dose) Dx 06/11/2011 BEAR DO, DANIELA K V05.3 Hep B (ped/adol 3 Dose) Dx 06/11/2011 BEAR DO, DANIELA K V05.3 Hep B (ped/adol 3 Dose) Dx 06/11/2011 BEAR DO, DANIELA K V05.3 Hep B (ped/adol 3 Dose) Dx 06/11/2011 BEAR DO, DANIELA K V05.3 Hep B (ped/adol 3 Dose) Dx 06/11/2011 BEAR DO, DANIELA K V05.3 Hep B (ped/adol 3 Dose) Dx 06/11/2011 BEAR DO, DANIELA K V05.3 Hep B (ped/adol 3 Dose) Dx 06/11/2011 VASQUEZ PAZ MD V05.3 Hep B (ped/adol 3 Dose) Dx 06/11/2011 BEAR DO, DANIELA K V05.3 Hep B (ped/adol 3 Dose) Dx 06/11/2011 BEAR DO, DANIELA K V05.3 Hep B (ped/adol 3 Dose) Dx 06/11/2011 VASQUEZ PAZ MD V05.3 Hep B (ped/adol 3 Dose) Dx 06/11/2011 BEAR DO, DANIELA K V05.3 Hep B (ped/adol 3 Dose) Dx 06/11/2011 BEAR DO, DANIELA K V05.3 Hep B (ped/adol 3 Dose) Dx 06/11/2011 BEAR DO, DANIELA K V05.3 Hep B (ped/adol 3 Dose) Dx 06/11/2011 WESTON MARINA PA-C V05.3 Hep B (ped/adol 3 Dose) Dx 06/11/2011 BEAR DO, DANIELA K V05.3 Hep B (ped/adol 3 Dose) Dx 06/11/2011 BEAR DO, DANIELA K V05.3 Hep B (ped/adol 3 Dose) Dx 06/11/2011 BEAR DO, DANIELA K V05.3 Hep B (ped/adol 3 Dose) Dx 06/11/2011 ROSA RIZO APRN V05.3 Hep B (ped/adol 3 Dose) Dx 06/11/2011 BEAR DO, DANIELA K V05.3 Hep B (ped/adol 3 Dose) Dx 06/11/2011 BEAR DO, DANIELA K V05.3 Hep B (ped/adol 3 Dose) Dx 06/11/2011 BEAR DO, DANIELA K V05.3 Hep B (ped/adol 3 Dose) Dx 06/11/2011 BEAR DO, DANIELA K V05.3 Hep B (ped/adol 3 Dose) Dx 06/11/2011 BEAR DO, DANIELA K V05.3 Hep B (ped/adol 3 Dose) Dx 06/11/2011 FLAQUITA MCDUFFIE APRN V05.3 Hep B (ped/adol 3 Dose) Dx 06/11/2011 BEAR DO, DANIELA K V05.3 Hep B (ped/adol 3 Dose) Dx 06/17/2011 DANIELA BEAR DO 692.2 Contact Dermatitis And Other Eczema Due To Solvents 06/17/2011 DANIELA BEAR DO 704.8 Other Specified Diseases Of Hair And Hair Follicles 06/17/2011 DANIELA BEAR DO 692.2 Contact Dermatitis And Other Eczema Due To Solvents 06/17/2011 DANIELA BEAR DO K 704.8 Other Specified Diseases Of Hair And Hair Follicles 06/17/2011 DANIELA BEAR DO 692.2 Contact Dermatitis And Other Eczema Due To Solvents 06/17/2011 DANIELA BEAR DO K 704.8 Other Specified Diseases Of Hair And Hair Follicles 06/17/2011 DANIELA BEAR DO 692.2 Contact Dermatitis And Other Eczema Due To Solvents 06/17/2011 DANIELA BEAR DO 704.8 Other Specified Diseases Of Hair And Hair Follicles 06/17/2011 DANIELA BEAR DO 692.2 Contact Dermatitis And Other Eczema Due To Solvents 06/17/2011 DANIELA BEAR DO 704.8 Other Specified Diseases Of Hair And Hair Follicles 06/17/2011 DANIELA BEAR DO 692.2 Contact Dermatitis And Other Eczema Due To Solvents 06/17/2011 DANIELA BEAR DO K 704.8 Other Specified Diseases Of Hair And Hair Follicles 06/17/2011 692.2 Contact Dermatitis And Other Eczema Due To Solvents 06/17/2011 704.8 Other Specified Diseases Of Hair And Hair Follicles 06/17/2011 692.2 Contact Dermatitis And Other Eczema Due To Solvents 06/17/2011 704.8 Other Specified Diseases Of Hair And Hair Follicles 06/17/2011 692.2 Contact Dermatitis And Other Eczema Due To Solvents 06/17/2011 704.8 Other Specified Diseases Of Hair And Hair Follicles 06/17/2011 692.2 Contact Dermatitis And Other Eczema Due To Solvents 06/17/2011 704.8 Other Specified Diseases Of Hair And Hair Follicles 06/17/2011 692.2 Contact Dermatitis And Other Eczema Due To Solvents 06/17/2011 704.8 Other Specified Diseases Of Hair And Hair Follicles 06/17/2011 DANIELA BEAR DO 692.2 Contact Dermatitis And Other Eczema Due To Solvents 06/17/2011 DANIELA BEAR DO K 704.8 Other Specified Diseases Of Hair And Hair Follicles 06/17/2011 BEAR DO, DANIELA K 692.2 Contact Dermatitis And Other Eczema Due To Solvents 06/17/2011 BEAR DO, DANIELA K 704.8 Other Specified Diseases Of Hair And Hair Follicles 06/17/2011 BEAR DO, DANIELA K 692.2 Contact Dermatitis And Other Eczema Due To Solvents 06/17/2011 BEAR DO, DANIELA K 704.8 Other Specified Diseases Of Hair And Hair Follicles 06/17/2011 BEAR DO, DANIELA K 692.2 Contact Dermatitis And Other Eczema Due To Solvents 06/17/2011 BEAR DO, DANIELA K 704.8 Other Specified Diseases Of Hair And Hair Follicles 06/17/2011 BEAR DO, DANIELA K 692.2 Contact Dermatitis And Other Eczema Due To Solvents 06/17/2011 BEAR DO, DANIELA K 704.8 Other Specified Diseases Of Hair And Hair Follicles 06/17/2011 BEAR DO, DANIELA K 692.2 Contact Dermatitis And Other Eczema Due To Solvents 06/17/2011 BEAR DO, DANIELA K 704.8 Other Specified Diseases Of Hair And Hair Follicles 06/17/2011 BEAR DO, DANIELA K 692.2 Contact Dermatitis And Other Eczema Due To Solvents 06/17/2011 BEAR DO, DANIELA K 704.8 Other Specified Diseases Of Hair And Hair Follicles 06/17/2011 BEAR DO, DANIELA K 692.2 Contact Dermatitis And Other Eczema Due To Solvents 06/17/2011 BEAR DO, DANIELA K 704.8 Other Specified Diseases Of Hair And Hair Follicles 06/17/2011 BEAR DO, DANIELA K 692.2 Contact Dermatitis And Other Eczema Due To Solvents 06/17/2011 BEAR DO, DANIELA K 704.8 Other Specified Diseases Of Hair And Hair Follicles 06/17/2011 BEAR DO, DANIELA K 692.2 Contact Dermatitis And Other Eczema Due To Solvents 06/17/2011 BEAR DO, DANIELA K 704.8 Other Specified Diseases Of Hair And Hair Follicles 06/17/2011 BEAR DO, DANIELA K 692.2 Contact Dermatitis And Other Eczema Due To Solvents 06/17/2011 BEAR DO, DANIELA K 704.8 Other Specified Diseases Of Hair And Hair Follicles 06/17/2011 [employer]OY [employer], FLAQUITA S 692.2 Contact Dermatitis And Other Eczema Due To Solvents 06/17/2011 FROY BIOMEDICAL MANAGER, FLAQUITA S 704.8 Other Specified Diseases Of Hair And Hair Follicles 06/17/2011 BEAR DO, DANIELA K 692.2 Contact Dermatitis And Other Eczema Due To Solvents 06/17/2011 BEAR DO, DANIELA K 704.8 Other Specified Diseases Of Hair And Hair Follicles 06/17/2011 BEAR DO, DANIELA K 692.2 Contact Dermatitis And Other Eczema Due To Solvents 06/17/2011 BEAR DO, DANIELA K 704.8 Other Specified Diseases Of Hair And Hair Follicles 06/17/2011 BEAR DO, DANIELA K 692.2 Contact Dermatitis And Other Eczema Due To Solvents 06/17/2011 BEAR DO, DANIELA K 704.8 Other Specified Diseases Of Hair And Hair Follicles 06/17/2011 BEAR DO, DANIELA K 692.2 Contact Dermatitis And Other Eczema Due To Solvents 06/17/2011 BEAR DO, DANIELA K 704.8 Other Specified Diseases Of Hair And Hair Follicles 06/17/2011 BEAR DO, DANIELA K 692.2 Contact Dermatitis And Other Eczema Due To Solvents 06/17/2011 BEAR DO DANIELA K 704.8 Other Specified Diseases Of Hair And Hair Follicles 06/17/2011 BEAR DO, DANIELA K 692.2 Contact Dermatitis And Other Eczema Due To Solvents 06/17/2011 BEAR DO, DANIELA K 704.8 Other Specified Diseases Of Hair And Hair Follicles 06/17/2011 BEAR DO, DANIELA K 692.2 Contact Dermatitis And Other Eczema Due To Solvents 06/17/2011 BEAR DO, DANIELA K 704.8 Other Specified Diseases Of Hair And Hair Follicles 06/17/2011 BEAR DO, DANIELA K 692.2 Contact Dermatitis And Other Eczema Due To Solvents 06/17/2011 BEAR DO, DANIELA K 704.8 Other Specified Diseases Of Hair And Hair Follicles 06/17/2011 VASQUEZ PAZ MD 692.2 Contact Dermatitis And Other Eczema Due To Solvents 06/17/2011 VASQUEZ PAZ MD 704.8 Other Specified Diseases Of Hair And Hair Follicles 06/17/2011 BEAR DO, DANIELA K 692.2 Contact Dermatitis And Other Eczema Due To Solvents 06/17/2011 BEAR DO, DANIELA K 704.8 Other Specified Diseases Of Hair And Hair Follicles 06/17/2011 BEAR DO, DANIELA K 692.2 Contact Dermatitis And Other Eczema Due To Solvents 06/17/2011 BEAR DO, DANIELA K 704.8 Other Specified Diseases Of Hair And Hair Follicles 06/17/2011 VASQUEZ PAZ MD 692.2 Contact Dermatitis And Other Eczema Due To Solvents 06/17/2011 VASQUEZ PAZ MD 704.8 Other Specified Diseases Of Hair And Hair Follicles 06/17/2011 BEAR DO DANIELA K 692.2 Contact Dermatitis And Other Eczema Due To Solvents 06/17/2011 BEAR DO DANIELA K 704.8 Other Specified Diseases Of Hair And Hair Follicles 06/17/2011 BEAR DO, DANIELA K 692.2 Contact Dermatitis And Other Eczema Due To Solvents 06/17/2011 BEAR DO, DANIELA K 704.8 Other Specified Diseases Of Hair And Hair Follicles 06/17/2011 BEAR DO DANIELA K 692.2 Contact Dermatitis And Other Eczema Due To Solvents 06/17/2011 BEAR DO DANIELA K 704.8 Other Specified Diseases Of Hair And Hair Follicles 06/17/2011 WESTON MARINA PA-C 692.2 Contact Dermatitis And Other Eczema Due To Solvents 06/17/2011 WESTON MARINA PA-C 704.8 Other Specified Diseases Of Hair And Hair Follicles 06/17/2011 BEAR DO, DANIELA K 692.2 Contact Dermatitis And Other Eczema Due To Solvents 06/17/2011 BEAR DO, DANIELA K 704.8 Other Specified Diseases Of Hair And Hair Follicles 06/17/2011 BEAR DO, DANIELA K 692.2 Contact Dermatitis And Other Eczema Due To Solvents 06/17/2011 BEAR DO, DANIELA K 704.8 Other Specified Diseases Of Hair And Hair Follicles 06/17/2011 BEAR DO DANIELA K 692.2 Contact Dermatitis And Other Eczema Due To Solvents 06/17/2011 BEAR DO, DANIELA K 704.8 Other Specified Diseases Of Hair And Hair Follicles 06/17/2011 ROSA RIZO APRN A 692.2 Contact Dermatitis And Other Eczema Due To Solvents 06/17/2011 DARRIUS FLORENCE ROSA A 704.8 Other Specified Diseases Of Hair And Hair Follicles 06/17/2011 BEAR DO, DANIELA K 692.2 Contact Dermatitis And Other Eczema Due To Solvents 06/17/2011 BEAR DO, DANIELA K 704.8 Other Specified Diseases Of Hair And Hair Follicles 06/17/2011 BEAR DO, DANIELA K 692.2 Contact Dermatitis And Other Eczema Due To Solvents 06/17/2011 BEAR DO, DANIELA K 704.8 Other Specified Diseases Of Hair And Hair Follicles 06/17/2011 BEAR DO DANIELA K 692.2 Contact Dermatitis And Other Eczema Due To Solvents 06/17/2011 BEAR DO, DANIELA K 704.8 Other Specified Diseases Of Hair And Hair Follicles 06/17/2011 BEAR DO DANIELA K 692.2 Contact Dermatitis And Other Eczema Due To Solvents 06/17/2011 BEAR DO DANIELA K 704.8 Other Specified Diseases Of Hair And Hair Follicles 06/17/2011 BEAR DO, DANIELA K 692.2 Contact Dermatitis And Other Eczema Due To Solvents 06/17/2011 BEAR DO, DANIELA K 704.8 Other Specified Diseases Of Hair And Hair Follicles 06/17/2011 FROY DONALDSONNFLAQUITA S 692.2 Contact Dermatitis And Other Eczema Due To Solvents 06/17/2011 FROY DONALDSONNFLAQUITA S 704.8 Other Specified Diseases Of Hair And Hair Follicles 06/17/2011 MARIANELA DO DANIELA K 692.2 Contact Dermatitis And Other Eczema Due To Solvents 06/17/2011 BEAR DO DANIELA K 704.8 Other Specified Diseases Of Hair And Hair Follicles 06/20/2011 DANIELA BEAR DO K V68.1 Issue Of Repeat Prescriptions 06/20/2011 DANIELA BEAR DO K V68.1 Issue Of Repeat Prescriptions 06/20/2011 DANIELA BEAR DO K V68.1 Issue Of Repeat Prescriptions 06/20/2011 DANIELA BEAR DO K V68.1 Issue Of Repeat Prescriptions 06/20/2011 DANIELA BEAR DO K V68.1 Issue Of Repeat Prescriptions 06/20/2011 DANIELA BEAR DO K V68.1 Issue Of Repeat Prescriptions 06/20/2011 V68.1 Issue Of Repeat Prescriptions 06/20/2011 V68.1 Issue Of Repeat Prescriptions 06/20/2011 V68.1 Issue Of Repeat Prescriptions 06/20/2011 V68.1 Issue Of Repeat Prescriptions 06/20/2011 V68.1 Issue Of Repeat Prescriptions 06/20/2011 DANIELA BEAR DO K V68.1 Issue Of Repeat Prescriptions 06/20/2011 DANIELA BEAR DO K V68.1 Issue Of Repeat Prescriptions 06/20/2011 BEAR DO, DANIELA K V68.1 Issue Of Repeat Prescriptions 06/20/2011 BEAR DO, DANIELA K V68.1 Issue Of Repeat Prescriptions 06/20/2011 BEAR DO, DANIELA K V68.1 Issue Of Repeat Prescriptions 06/20/2011 BEAR DO, DANIELA K V68.1 Issue Of Repeat Prescriptions 06/20/2011 EBAR DO, DANIELA K V68.1 Issue Of Repeat Prescriptions 06/20/2011 BEAR DO, DANIELA K V68.1 Issue Of Repeat Prescriptions 06/20/2011 BEAR DO, DANIELA K V68.1 Issue Of Repeat Prescriptions 06/20/2011 BEAR DO, DANIELA K V68.1 Issue Of Repeat Prescriptions 06/20/2011 BEAR DO, DANIELA K V68.1 Issue Of Repeat Prescriptions 06/20/2011 FLAQUITA MCDUFFIE APRN V68.1 Issue Of Repeat Prescriptions 06/20/2011 BEAR DO, DANIELA K V68.1 Issue Of Repeat Prescriptions 06/20/2011 BEAR DO, DANIELA K V68.1 Issue Of Repeat Prescriptions 06/20/2011 BEAR DO, DANIELA K V68.1 Issue Of Repeat Prescriptions 06/20/2011 BEAR DO, DANIELA K V68.1 Issue Of Repeat Prescriptions 06/20/2011 BEAR DO, DANIELA K V68.1 Issue Of Repeat Prescriptions 06/20/2011 BEAR DO, DANIELA K V68.1 Issue Of Repeat Prescriptions 06/20/2011 BEAR DO, DANIELA K V68.1 Issue Of Repeat Prescriptions 06/20/2011 BEAR DO, DANIELA K V68.1 Issue Of Repeat Prescriptions 06/20/2011 VASQUEZ PAZ MD V68.1 Issue Of Repeat Prescriptions 06/20/2011 BEAR DO, DANIELA K V68.1 Issue Of Repeat Prescriptions 06/20/2011 BEAR DO, DANIELA K V68.1 Issue Of Repeat Prescriptions 06/20/2011 VASQUEZ PAZ MD V68.1 Issue Of Repeat Prescriptions 06/20/2011 BEAR DO, DANIELA K V68.1 Issue Of Repeat Prescriptions 06/20/2011 BEAR DO, DANIELA K V68.1 Issue Of Repeat Prescriptions 06/20/2011 BEAR DO, DANIELA K V68.1 Issue Of Repeat Prescriptions 06/20/2011 WESTON MARINA PA-C V68.1 Issue Of Repeat Prescriptions 06/20/2011 BEAR DO, DANIELA K V68.1 Issue Of Repeat Prescriptions 06/20/2011 BEAR DO, DANIELA K V68.1 Issue Of Repeat Prescriptions 06/20/2011 BEAR DO, DANIELA K V68.1 Issue Of Repeat Prescriptions 06/20/2011 ROSA RIZO APRN V68.1 Issue Of Repeat Prescriptions 06/20/2011 BEAR DO, DANIELA K V68.1 Issue Of Repeat Prescriptions 06/20/2011 BEAR DO, DANIELA K V68.1 Issue Of Repeat Prescriptions 06/20/2011 BEAR DO, DANIELA K V68.1 Issue Of Repeat Prescriptions 06/20/2011 BEAR DO, DANIELA K V68.1 Issue Of Repeat Prescriptions 06/20/2011 BEAR DO, DANIELA K V68.1 Issue Of Repeat Prescriptions 06/20/2011 FLAQUITA MCDUFFIE APRN V68.1 Issue Of Repeat Prescriptions 06/20/2011 BEAR DO, DANIELA K V68.1 Issue Of Repeat Prescriptions 09/10/2011 BEAR DO, DANIELA K 493.90 ASTHMA UNSPECIFIED 09/10/2011 BEAR DO, DANIELA K 692.9 Contact Dermatitis And Other Eczema Unspecified Cause 09/10/2011 BEAR DO, DANIELA K 780.52 INSOMNIA UNSPECIFIED 09/10/2011 BEAR DO, DANIELA K 493.90 ASTHMA UNSPECIFIED 09/10/2011 BEAR DO, DANIELA K 692.9 Contact Dermatitis And Other Eczema Unspecified Cause 09/10/2011 BEAR DO, DANIELA K 780.52 INSOMNIA UNSPECIFIED 09/10/2011 BEAR DO, DANIELA K 493.90 ASTHMA UNSPECIFIED 09/10/2011 BEAR DO, DANIELA K 692.9 Contact Dermatitis And Other Eczema Unspecified Cause 09/10/2011 BEAR DO, DANIELA K 780.52 INSOMNIA UNSPECIFIED 09/10/2011 BEAR DO, DANIELA K 493.90 ASTHMA UNSPECIFIED 09/10/2011 BEAR DO, DANIELA K 692.9 Contact Dermatitis And Other Eczema Unspecified Cause 09/10/2011 BEAR DO, DANIELA K 780.52 INSOMNIA UNSPECIFIED 09/10/2011 BEAR DO, DANIELA K 493.90 ASTHMA UNSPECIFIED 09/10/2011 BEAR DO, DANIELA K 692.9 Contact Dermatitis And Other Eczema Unspecified Cause 09/10/2011 BEAR DO, DANIELA K 780.52 INSOMNIA UNSPECIFIED 09/10/2011 BEAR DO, DANIELA K 493.90 ASTHMA UNSPECIFIED 09/10/2011 BEAR DO, DANIELA K 692.9 Contact Dermatitis And Other Eczema Unspecified Cause 09/10/2011 BEAR DO, DANIELA K 780.52 INSOMNIA UNSPECIFIED 09/10/2011 493.90 ASTHMA UNSPECIFIED 09/10/2011 692.9 Contact Dermatitis And Other Eczema Unspecified Cause 09/10/2011 780.52 INSOMNIA UNSPECIFIED 09/10/2011 493.90 ASTHMA UNSPECIFIED 09/10/2011 692.9 Contact Dermatitis And Other Eczema Unspecified Cause 09/10/2011 780.52 INSOMNIA UNSPECIFIED 09/10/2011 493.90 ASTHMA UNSPECIFIED 09/10/2011 692.9 Contact Dermatitis And Other Eczema Unspecified Cause 09/10/2011 780.52 INSOMNIA UNSPECIFIED 09/10/2011 493.90 ASTHMA UNSPECIFIED 09/10/2011 692.9 Contact Dermatitis And Other Eczema Unspecified Cause 09/10/2011 780.52 INSOMNIA UNSPECIFIED 09/10/2011 493.90 ASTHMA UNSPECIFIED 09/10/2011 692.9 Contact Dermatitis And Other Eczema Unspecified Cause 09/10/2011 780.52 INSOMNIA UNSPECIFIED 09/10/2011 BEAR DO, DANIELA K 493.90 ASTHMA UNSPECIFIED 09/10/2011 BEAR DO, DANIELA K 692.9 Contact Dermatitis And Other Eczema Unspecified Cause 09/10/2011 BEAR DO, DANIELA K 780.52 INSOMNIA UNSPECIFIED 09/10/2011 BEAR DO, DANIELA K 493.90 ASTHMA UNSPECIFIED 09/10/2011 BEAR DO, DANIELA K 692.9 Contact Dermatitis And Other Eczema Unspecified Cause 09/10/2011 BEAR DO, DANIELA K 780.52 INSOMNIA UNSPECIFIED 09/10/2011 BEAR DO, DANIELA K 493.90 ASTHMA UNSPECIFIED 09/10/2011 BEAR DO, DANIELA K 692.9 Contact Dermatitis And Other Eczema Unspecified Cause 09/10/2011 BEAR DO, DANIELA K 780.52 INSOMNIA UNSPECIFIED 09/10/2011 BEAR DO, DANIELA K 493.90 ASTHMA UNSPECIFIED 09/10/2011 BEAR DO, DANIELA K 692.9 Contact Dermatitis And Other Eczema Unspecified Cause 09/10/2011 BEAR DO, DANIELA K 780.52 INSOMNIA UNSPECIFIED 09/10/2011 BEAR DO, DANIELA K 493.90 ASTHMA UNSPECIFIED 09/10/2011 BEAR DO, DANIELA K 692.9 Contact Dermatitis And Other Eczema Unspecified Cause 09/10/2011 BEAR DO, DANIELA K 780.52 INSOMNIA UNSPECIFIED 09/10/2011 BEAR DO, DANIELA K 493.90 ASTHMA UNSPECIFIED 09/10/2011 BEAR DO, DANIELA K 692.9 Contact Dermatitis And Other Eczema Unspecified Cause 09/10/2011 BEAR DO, DANIELA K 780.52 INSOMNIA UNSPECIFIED 09/10/2011 BEAR DO, DANIELA K 493.90 ASTHMA UNSPECIFIED 09/10/2011 BEAR DO, DANIELA K 692.9 Contact Dermatitis And Other Eczema Unspecified Cause 09/10/2011 BEAR DO, DANIELA K 780.52 INSOMNIA UNSPECIFIED 09/10/2011 BEAR DO, DANIELA K 493.90 ASTHMA UNSPECIFIED 09/10/2011 BEAR DO, DANIELA K 692.9 Contact Dermatitis And Other Eczema Unspecified Cause 09/10/2011 BEAR DO, DANIELA K 780.52 INSOMNIA UNSPECIFIED 09/10/2011 BEAR DO, DANIELA K 493.90 ASTHMA UNSPECIFIED 09/10/2011 BEAR DO, DANIELA K 692.9 Contact Dermatitis And Other Eczema Unspecified Cause 09/10/2011 BEAR DO, DANIELA K 780.52 INSOMNIA UNSPECIFIED 09/10/2011 BEAR DO, DANIELA K 493.90 ASTHMA UNSPECIFIED 09/10/2011 BEAR DO, DANIELA K 692.9 Contact Dermatitis And Other Eczema Unspecified Cause 09/10/2011 BEAR DO, DANIELA K 780.52 INSOMNIA UNSPECIFIED 09/10/2011 BEAR DO, DANIELA K 493.90 ASTHMA UNSPECIFIED 09/10/2011 BEAR DO, DANIELA K 692.9 Contact Dermatitis And Other Eczema Unspecified Cause 09/10/2011 BEAR DO, DANIELA K 780.52 INSOMNIA UNSPECIFIED 09/10/2011 FROY BIOMEDICAL MANAGER, FLAQUITA S 493.90 ASTHMA UNSPECIFIED 09/10/2011 FROY BIOMEDICAL MANAGER, FLAQUITA S 692.9 Contact Dermatitis And Other Eczema Unspecified Cause 09/10/2011 FROY BIOMEDICAL MANAGER, FLAQUITA S 780.52 INSOMNIA UNSPECIFIED 09/10/2011 BEAR DO, DANIELA K 493.90 ASTHMA UNSPECIFIED 09/10/2011 BEAR DO, DANIELA K 692.9 Contact Dermatitis And Other Eczema Unspecified Cause 09/10/2011 BEAR DO, DANIELA K 780.52 INSOMNIA UNSPECIFIED 09/10/2011 BEAR DO, DANIELA K 493.90 ASTHMA UNSPECIFIED 09/10/2011 BEAR DO, DANIELA K 692.9 Contact Dermatitis And Other Eczema Unspecified Cause 09/10/2011 BEAR DO, DANIELA K 780.52 INSOMNIA UNSPECIFIED 09/10/2011 BEAR DO, DANIELA K 493.90 ASTHMA UNSPECIFIED 09/10/2011 BEAR DO, DANIELA K 692.9 Contact Dermatitis And Other Eczema Unspecified Cause 09/10/2011 BEAR DO, DANIELA K 780.52 INSOMNIA UNSPECIFIED 09/10/2011 BEAR DO, DANIELA K 493.90 ASTHMA UNSPECIFIED 09/10/2011 BEAR DO, DANIELA K 692.9 Contact Dermatitis And Other Eczema Unspecified Cause 09/10/2011 BEAR DO, DANIELA K 780.52 INSOMNIA UNSPECIFIED 09/10/2011 BEAR DO, DANIELA K 493.90 ASTHMA UNSPECIFIED 09/10/2011 BEAR DO, DANIELA K 692.9 Contact Dermatitis And Other Eczema Unspecified Cause 09/10/2011 BEAR DO, DANIELA K 780.52 INSOMNIA UNSPECIFIED 09/10/2011 BEAR DO, DANIELA K 493.90 ASTHMA UNSPECIFIED 09/10/2011 BEAR DO, DANIELA K 692.9 Contact Dermatitis And Other Eczema Unspecified Cause 09/10/2011 BEAR DO, DANIELA K 780.52 INSOMNIA UNSPECIFIED 09/10/2011 BEAR DO, DANIELA K 493.90 ASTHMA UNSPECIFIED 09/10/2011 BEAR DO, DANIELA K 692.9 Contact Dermatitis And Other Eczema Unspecified Cause 09/10/2011 BEAR DO, DANIELA K 780.52 INSOMNIA UNSPECIFIED 09/10/2011 BEAR DO, DANIELA K 493.90 ASTHMA UNSPECIFIED 09/10/2011 BEAR DO, DANIELA K 692.9 Contact Dermatitis And Other Eczema Unspecified Cause 09/10/2011 BEAR DO, DANIELA K 780.52 INSOMNIA UNSPECIFIED 09/10/2011 VASQUEZ PAZ MD 493.90 ASTHMA UNSPECIFIED 09/10/2011 VASQUEZ PAZ MD 692.9 Contact Dermatitis And Other Eczema Unspecified Cause 09/10/2011 VASQUEZ PAZ MD 780.52 INSOMNIA UNSPECIFIED 09/10/2011 BEAR DO, DANIELA K 493.90 ASTHMA UNSPECIFIED 09/10/2011 BEAR DO, DANIELA K 692.9 Contact Dermatitis And Other Eczema Unspecified Cause 09/10/2011 BEAR DO, DANIELA K 780.52 INSOMNIA UNSPECIFIED 09/10/2011 BEAR DO, DANIELA K 493.90 ASTHMA UNSPECIFIED 09/10/2011 BEAR DO, DANIELA K 692.9 Contact Dermatitis And Other Eczema Unspecified Cause 09/10/2011 BEAR DO, DANIELA K 780.52 INSOMNIA UNSPECIFIED 09/10/2011 VASQUEZ PAZ MD 493.90 ASTHMA UNSPECIFIED 09/10/2011 VASQUEZ PAZ MD 692.9 Contact Dermatitis And Other Eczema Unspecified Cause 09/10/2011 VASQUEZ PAZ MD 780.52 INSOMNIA UNSPECIFIED 09/10/2011 BEAR DO, DANIELA K 493.90 ASTHMA UNSPECIFIED 09/10/2011 BEAR DO, DANIELA K 692.9 Contact Dermatitis And Other Eczema Unspecified Cause 09/10/2011 BEAR DO, DANILEA K 780.52 INSOMNIA UNSPECIFIED 09/10/2011 BEAR DO, DANIELA K 493.90 ASTHMA UNSPECIFIED 09/10/2011 BEAR DO, DANIELA K 692.9 Contact Dermatitis And Other Eczema Unspecified Cause 09/10/2011 BEAR DO, DANIELA K 780.52 INSOMNIA UNSPECIFIED 09/10/2011 BEAR DO, DANIELA K 493.90 ASTHMA UNSPECIFIED 09/10/2011 BEAR DO, DANIELA K 692.9 Contact Dermatitis And Other Eczema Unspecified Cause 09/10/2011 BEAR DO, DANIELA K 780.52 INSOMNIA UNSPECIFIED 09/10/2011 WESTON MARINA PA-C 493.90 ASTHMA UNSPECIFIED 09/10/2011 WESTON MARINA PA-C 692.9 Contact Dermatitis And Other Eczema Unspecified Cause 09/10/2011 WESTON MARINA PA-C 780.52 INSOMNIA UNSPECIFIED 09/10/2011 BEAR DO, DANIELA K 493.90 ASTHMA UNSPECIFIED 09/10/2011 BEAR DO, DANIELA K 692.9 Contact Dermatitis And Other Eczema Unspecified Cause 09/10/2011 BEAR DO, DANIELA K 780.52 INSOMNIA UNSPECIFIED 09/10/2011 BEAR DO, DANIELA K 493.90 ASTHMA UNSPECIFIED 09/10/2011 BEAR DO, DANIELA K 692.9 Contact Dermatitis And Other Eczema Unspecified Cause 09/10/2011 BEAR DO, DANIELA K 780.52 INSOMNIA UNSPECIFIED 09/10/2011 BEAR DO, DANIELA K 493.90 ASTHMA UNSPECIFIED 09/10/2011 BEAR DO, DANIELA K 692.9 Contact Dermatitis And Other Eczema Unspecified Cause 09/10/2011 BEAR DO, DANIELA K 780.52 INSOMNIA UNSPECIFIED 09/10/2011 RAJOTTE BIOMEDICAL MANAGER, ROSA A 493.90 ASTHMA UNSPECIFIED 09/10/2011 RAJOTTE BIOMEDICAL MANAGER, ROSA A 692.9 Contact Dermatitis And Other Eczema Unspecified Cause 09/10/2011 RAJOTTE BIOMEDICAL MANAGER, ROSA A 780.52 INSOMNIA UNSPECIFIED 09/10/2011 BEAR DO, DNAIELA K 493.90 ASTHMA UNSPECIFIED 09/10/2011 BEAR DO, DANIELA K 692.9 Contact Dermatitis And Other Eczema Unspecified Cause 09/10/2011 BEAR DO, DANIELA K 780.52 INSOMNIA UNSPECIFIED 09/10/2011 BEAR DO, DANIELA K 493.90 ASTHMA UNSPECIFIED 09/10/2011 BEAR DO, DANIELA K 692.9 Contact Dermatitis And Other Eczema Unspecified Cause 09/10/2011 BEAR DO, DANIELA K 780.52 INSOMNIA UNSPECIFIED 09/10/2011 BEAR DO, DANIELA K 493.90 ASTHMA UNSPECIFIED 09/10/2011 BEAR DO, DANIELA K 692.9 Contact Dermatitis And Other Eczema Unspecified Cause 09/10/2011 BEAR DO, DANIELA K 780.52 INSOMNIA UNSPECIFIED 09/10/2011 BEAR DO, DANIELA K 493.90 ASTHMA UNSPECIFIED 09/10/2011 BEAR DO, DANIELA K 692.9 Contact Dermatitis And Other Eczema Unspecified Cause 09/10/2011 BEAR DO, DANIELA K 780.52 INSOMNIA UNSPECIFIED 09/10/2011 BEAR DO, DANIELA K 493.90 ASTHMA UNSPECIFIED 09/10/2011 BEAR DO, DANIELA K 692.9 Contact Dermatitis And Other Eczema Unspecified Cause 09/10/2011 BEAR DO, DANIELA K 780.52 INSOMNIA UNSPECIFIED 09/10/2011 FROY BIOMEDICAL MANAGER, FLAQUITA S 493.90 ASTHMA UNSPECIFIED 09/10/2011 FROY BIOMEDICAL MANAGER, FLAQUITA S 692.9 Contact Dermatitis And Other Eczema Unspecified Cause 09/10/2011 FROY BIOMEDICAL MANAGER, FLAQUITA S 780.52 INSOMNIA UNSPECIFIED 09/10/2011 BEAR DO, DANIELA K 493.90 ASTHMA UNSPECIFIED 09/10/2011 BEAR DO, DANIELA K 692.9 Contact Dermatitis And Other Eczema Unspecified Cause 09/10/2011 BEAR DO, DANIELA K 780.52 INSOMNIA UNSPECIFIED 09/23/2011 BEAR DO, DANIELA K 702.19 OTHER SEBORRHEIC KERATOSIS 09/23/2011 BEAR DO, DANIELA K 709.9 UNSPECIFIED DISORDER OF SKIN AND SUBCUTANEOUS TISSUE 09/23/2011 BEAR DO, DANIELA K 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 09/23/2011 BEAR DO, DANIELA K 702.19 OTHER SEBORRHEIC KERATOSIS 09/23/2011 BEAR DO, DANIELA K 709.9 UNSPECIFIED DISORDER OF SKIN AND SUBCUTANEOUS TISSUE 09/23/2011 BEAR DO, DANIELA K 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 09/23/2011 BEAR DO, DANIELA K 702.19 Other Seborrheic Keratosis 09/23/2011 BEAR DO, DANIELA K 709.9 UNSPECIFIED DISORDER OF SKIN AND SUBCUTANEOUS TISSUE 09/23/2011 BEAR DO, DANIELA K 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 09/23/2011 BEAR DO, DANIELA K 702.19 Other Seborrheic Keratosis 09/23/2011 BEAR DO, DANIELA K 709.9 UNSPECIFIED DISORDER OF SKIN AND SUBCUTANEOUS TISSUE 09/23/2011 BEAR DO, DANIELA K 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 09/23/2011 BEAR DO, DANIELA K 702.19 Other Seborrheic Keratosis 09/23/2011 BEAR DO, DANIELA K 709.9 UNSPECIFIED DISORDER OF SKIN AND SUBCUTANEOUS TISSUE 09/23/2011 BEAR DO, DANIELA K 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 09/23/2011 BEAR DO, DANIELA K 702.19 Other Seborrheic Keratosis 09/23/2011 BEAR DO, DANIELA K 709.9 UNSPECIFIED DISORDER OF SKIN AND SUBCUTANEOUS TISSUE 09/23/2011 BEAR DO, DANIELA K 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 09/23/2011 702.19 Other Seborrheic Keratosis 09/23/2011 709.9 UNSPECIFIED DISORDER OF SKIN AND SUBCUTANEOUS TISSUE 09/23/2011 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 09/23/2011 702.19 Other Seborrheic Keratosis 09/23/2011 709.9 UNSPECIFIED DISORDER OF SKIN AND SUBCUTANEOUS TISSUE 09/23/2011 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 09/23/2011 702.19 Other Seborrheic Keratosis 09/23/2011 709.9 UNSPECIFIED DISORDER OF SKIN AND SUBCUTANEOUS TISSUE 09/23/2011 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 09/23/2011 702.19 Other Seborrheic Keratosis 09/23/2011 709.9 UNSPECIFIED DISORDER OF SKIN AND SUBCUTANEOUS TISSUE 09/23/2011 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 09/23/2011 702.19 Other Seborrheic Keratosis 09/23/2011 709.9 UNSPECIFIED DISORDER OF SKIN AND SUBCUTANEOUS TISSUE 09/23/2011 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 09/23/2011 BEAR DO DANIELA K 702.19 Other Seborrheic Keratosis 09/23/2011 BEAR DO DANIELA K 709.9 UNSPECIFIED DISORDER OF SKIN AND SUBCUTANEOUS TISSUE 09/23/2011 BEAR DO DANIELA K 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 09/23/2011 MARIANELA PHILIP DANIELA K 702.19 Other Seborrheic Keratosis 09/23/2011 BEAR DO DANIELA K 709.9 UNSPECIFIED DISORDER OF SKIN AND SUBCUTANEOUS TISSUE 09/23/2011 BEAR DO DANIELA K 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 09/23/2011 BEAR DO, DANIELA K 702.19 Other Seborrheic Keratosis 09/23/2011 BEAR DO DANIELA K 709.9 UNSPECIFIED DISORDER OF SKIN AND SUBCUTANEOUS TISSUE 09/23/2011 BEAR DO DANIELA K 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 09/23/2011 BEAR DO DANIELA K 702.19 Other Seborrheic Keratosis 09/23/2011 BEAR DO DANIELA K 709.9 UNSPECIFIED DISORDER OF SKIN AND SUBCUTANEOUS TISSUE 09/23/2011 BEAR DO DANIELA K 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 09/23/2011 BEAR DO DANIELA K 702.19 Other Seborrheic Keratosis 09/23/2011 BEAR DO DANIELA K 709.9 UNSPECIFIED DISORDER OF SKIN AND SUBCUTANEOUS TISSUE 09/23/2011 BEAR DO DANIELA K 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 09/23/2011 BEAR DO, DANIELA K 702.19 Other Seborrheic Keratosis 09/23/2011 BEAR DO, DANIELA K 709.9 UNSPECIFIED DISORDER OF SKIN AND SUBCUTANEOUS TISSUE 09/23/2011 BEAR DO, DANIELA K 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 09/23/2011 BEAR DO, DANIELA K 702.19 Other Seborrheic Keratosis 09/23/2011 BEAR DO, DANIELA K 709.9 UNSPECIFIED DISORDER OF SKIN AND SUBCUTANEOUS TISSUE 09/23/2011 BEAR DO, DANIELA K 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 09/23/2011 BEAR DO, DANIELA K 702.19 Other Seborrheic Keratosis 09/23/2011 BEAR DO, DANIELA K 709.9 UNSPECIFIED DISORDER OF SKIN AND SUBCUTANEOUS TISSUE 09/23/2011 BEAR DO, DANIELA K 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 09/23/2011 BEAR DO, DANIELA K 702.19 Other Seborrheic Keratosis 09/23/2011 BEAR DO, DANIELA K 709.9 UNSPECIFIED DISORDER OF SKIN AND SUBCUTANEOUS TISSUE 09/23/2011 BEAR DO, DANIELA K 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 09/23/2011 BEAR DO, DANIELA K 702.19 Other Seborrheic Keratosis 09/23/2011 BEAR DO, DANIELA K 709.9 UNSPECIFIED DISORDER OF SKIN AND SUBCUTANEOUS TISSUE 09/23/2011 BEAR DO, DANIELA K 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 09/23/2011 BEAR DO, DANIELA K 702.19 Other Seborrheic Keratosis 09/23/2011 BEAR DO, DANIELA K 709.9 UNSPECIFIED DISORDER OF SKIN AND SUBCUTANEOUS TISSUE 09/23/2011 BEAR DO, DANIELA K 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 09/23/2011 FROY BIOMEDICAL MANAGER FLAQUITA S 702.19 Other Seborrheic Keratosis 09/23/2011 FROY BIOMEDICAL MANAGER FLAQUITA S 709.9 UNSPECIFIED DISORDER OF SKIN AND SUBCUTANEOUS TISSUE 09/23/2011 FROY BIOMEDICAL MANAGER FLAQUITA S 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 09/23/2011 BEAR DO, DANIELA K 702.19 Other Seborrheic Keratosis 09/23/2011 BEAR DO, DANIELA K 709.9 UNSPECIFIED DISORDER OF SKIN AND SUBCUTANEOUS TISSUE 09/23/2011 BEAR DO, DANIELA K 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 09/23/2011 BEAR DO, DANIELA K 702.19 Other Seborrheic Keratosis 09/23/2011 BEAR DO, DANIELA K 709.9 UNSPECIFIED DISORDER OF SKIN AND SUBCUTANEOUS TISSUE 09/23/2011 BEAR DO, DANIELA K 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 09/23/2011 BEAR DO, DANIELA K 702.19 Other Seborrheic Keratosis 09/23/2011 BEAR DO, DANIELA K 709.9 UNSPECIFIED DISORDER OF SKIN AND SUBCUTANEOUS TISSUE 09/23/2011 BEAR DO, DANIELA K 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 09/23/2011 BEAR DO, DANIELA K 702.19 Other Seborrheic Keratosis 09/23/2011 BEAR DO, DANIELA K 709.9 UNSPECIFIED DISORDER OF SKIN AND SUBCUTANEOUS TISSUE 09/23/2011 BEAR DO, DANIELA K 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 09/23/2011 BEAR DO, DANIELA K 702.19 Other Seborrheic Keratosis 09/23/2011 BEAR DO, DANIELA K 709.9 UNSPECIFIED DISORDER OF SKIN AND SUBCUTANEOUS TISSUE 09/23/2011 BEAR DO, DANIELA K 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 09/23/2011 BEAR DO, DANIELA K 702.19 Other Seborrheic Keratosis 09/23/2011 BEAR DO, DANIELA K 709.9 UNSPECIFIED DISORDER OF SKIN AND SUBCUTANEOUS TISSUE 09/23/2011 BEAR DO, DANIELA K 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 09/23/2011 BEAR DO, DANIELA K 702.19 Other Seborrheic Keratosis 09/23/2011 BEAR DO, DANIELA K 709.9 UNSPECIFIED DISORDER OF SKIN AND SUBCUTANEOUS TISSUE 09/23/2011 BEAR DO, DANIELA K 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 09/23/2011 BEAR DO, DANIELA K 702.19 Other Seborrheic Keratosis 09/23/2011 BEAR DO, DANIELA K 709.9 UNSPECIFIED DISORDER OF SKIN AND SUBCUTANEOUS TISSUE 09/23/2011 BEAR DO DANIELA K 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 09/23/2011 VASQUEZ PAZ MD 702.19 Other Seborrheic Keratosis 09/23/2011 VASQUEZ PAZ MD.9 UNSPECIFIED DISORDER OF SKIN AND SUBCUTANEOUS TISSUE 09/23/2011 VASQUEZ PAZ MD 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 09/23/2011 BEAR DO DANIELA K 702.19 Other Seborrheic Keratosis 09/23/2011 BEAR DO DANIELA K 709.9 UNSPECIFIED DISORDER OF SKIN AND SUBCUTANEOUS TISSUE 09/23/2011 BEAR DO DANIELA K 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 09/23/2011 MARIANELA PHILIP DANIELA K 702.19 Other Seborrheic Keratosis 09/23/2011 MARIANELA PHILIP DANIELA K 709.9 UNSPECIFIED DISORDER OF SKIN AND SUBCUTANEOUS TISSUE 09/23/2011 MARIANELA PHILIP DANIELA K 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 09/23/2011 VASQUEZ PAZ MD 702.19 Other Seborrheic Keratosis 09/23/2011 VASQUEZ PAZ MD.9 UNSPECIFIED DISORDER OF SKIN AND SUBCUTANEOUS TISSUE 09/23/2011 VASQUEZ PAZ MD 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 09/23/2011 MARIANELA PHILIP DANIELA K 702.19 Other Seborrheic Keratosis 09/23/2011 MARIANELA PHILIP DANIELA K 709.9 UNSPECIFIED DISORDER OF SKIN AND SUBCUTANEOUS TISSUE 09/23/2011 MARIANELA PHILIP DANIELA K 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 09/23/2011 BEAR DO DANIELA K 702.19 Other Seborrheic Keratosis 09/23/2011 BEAR DO DANIELA K 709.9 UNSPECIFIED DISORDER OF SKIN AND SUBCUTANEOUS TISSUE 09/23/2011 BEAR DO DANIELA K 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 09/23/2011 BEAR DO DANIELA K 702.19 Other Seborrheic Keratosis 09/23/2011 MARIANELA PHILIP DANIELA K 709.9 UNSPECIFIED DISORDER OF SKIN AND SUBCUTANEOUS TISSUE 09/23/2011 BEAR DO, DANIELA K 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 09/23/2011 WESTON MARINA PA-C 702.19 Other Seborrheic Keratosis 09/23/2011 WESTON MARINA PA-C 709.9 UNSPECIFIED DISORDER OF SKIN AND SUBCUTANEOUS TISSUE 09/23/2011 WESTON MARINA PA-C 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 09/23/2011 BEAR DO, DANIELA K 702.19 Other Seborrheic Keratosis 09/23/2011 BEAR DO, DANIELA K 709.9 UNSPECIFIED DISORDER OF SKIN AND SUBCUTANEOUS TISSUE 09/23/2011 BEAR DO, DANIELA K 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 09/23/2011 BEAR DO, DANIELA K 702.19 Other Seborrheic Keratosis 09/23/2011 BEAR DO, DANIELA K 709.9 UNSPECIFIED DISORDER OF SKIN AND SUBCUTANEOUS TISSUE 09/23/2011 BEAR DO, DANIELA K 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 09/23/2011 BEAR DO, DANIELA K 702.19 Other Seborrheic Keratosis 09/23/2011 BEAR DO, DANIELA K 709.9 UNSPECIFIED DISORDER OF SKIN AND SUBCUTANEOUS TISSUE 09/23/2011 BEAR DO, DANIELA K 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 09/23/2011 RAJMARANDAE BIOMEDICAL MANAGER, ROSA A 702.19 Other Seborrheic Keratosis 09/23/2011 RAJOTTE BIOMEDICAL MANAGER, ROSA A 709.9 UNSPECIFIED DISORDER OF SKIN AND SUBCUTANEOUS TISSUE 09/23/2011 KATIEE BIOMEDICAL MANAGER, ROSA A 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 09/23/2011 BEAR DO, DANIELA K 702.19 Other Seborrheic Keratosis 09/23/2011 BEAR DO, DANIELA K 709.9 UNSPECIFIED DISORDER OF SKIN AND SUBCUTANEOUS TISSUE 09/23/2011 BEAR DO, DANIELA K 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 09/23/2011 BEAR DO, DANIELA K 702.19 Other Seborrheic Keratosis 09/23/2011 BEAR DO, DANIELA K 709.9 UNSPECIFIED DISORDER OF SKIN AND SUBCUTANEOUS TISSUE 09/23/2011 BEAR DO, DANIELA K 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 09/23/2011 BEAR DO, DANIELA K 702.19 Other Seborrheic Keratosis 09/23/2011 BEAR DO, DANIELA K 709.9 UNSPECIFIED DISORDER OF SKIN AND SUBCUTANEOUS TISSUE 09/23/2011 BEAR DO, DANIELA K 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 09/23/2011 BEAR DO, DANIELA K 702.19 Other Seborrheic Keratosis 09/23/2011 BEAR DO, DANIELA K 709.9 UNSPECIFIED DISORDER OF SKIN AND SUBCUTANEOUS TISSUE 09/23/2011 BEAR DO, DANIELA K 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 09/23/2011 BEAR DO, DANIELA K 702.19 Other Seborrheic Keratosis 09/23/2011 BEAR DO DANIELA K 709.9 UNSPECIFIED DISORDER OF SKIN AND SUBCUTANEOUS TISSUE 09/23/2011 BEAR DO DANIELA K 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 09/23/2011 FROY BIOMEDICAL MANAGER, FLAQUITA S 702.19 Other Seborrheic Keratosis 09/23/2011 FROY BIOMEDICAL MANAGER, FLAQUITA S 709.9 UNSPECIFIED DISORDER OF SKIN AND SUBCUTANEOUS TISSUE 09/23/2011 FROY BIOMEDICAL MANAGER FLAQUITA S 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 09/23/2011 BEAR DO, DANIELA K 702.19 Other Seborrheic Keratosis 09/23/2011 BEAR DO, DANIELA K 709.9 UNSPECIFIED DISORDER OF SKIN AND SUBCUTANEOUS TISSUE 09/23/2011 BEAR DO DANIELA K 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 12/10/2011 BEAR DO, DANIELA K V05.3 HEP B (PED/ADOL 3 DOSE) DX 12/10/2011 BEAR DO, DANIELA K V05.3 HEP B (PED/ADOL 3 DOSE) DX 12/10/2011 BEAR DO, DANIELA K V05.3 HEP B (PED/ADOL 3 DOSE) DX 12/10/2011 BEAR DO, DANIELA K V05.3 HEP B (PED/ADOL 3 DOSE) DX 12/10/2011 BEAR DO, DANIELA K V05.3 HEP B (PED/ADOL 3 DOSE) DX 12/10/2011 BEAR DO, DANIELA K V05.3 HEP B (PED/ADOL 3 DOSE) DX 12/10/2011 V05.3 HEP B (PED/ ADOL 3 DOSE) DX 12/10/2011 V05.3 HEP B (PED/ ADOL 3 DOSE) DX 12/10/2011 V05.3 HEP B (PED/ ADOL 3 DOSE) DX 12/10/2011 V05.3 HEP B (PED/ ADOL 3 DOSE) DX 12/10/2011 V05.3 HEP B (PED/ ADOL 3 DOSE) DX 12/10/2011 BEAR DO, DANIELA K V05.3 HEP B (PED/ADOL 3 DOSE) DX 12/10/2011 BEAR DO, DANIELA K V05.3 HEP B (PED/ADOL 3 DOSE) DX 12/10/2011 BEAR DO, DANIELA K V05.3 HEP B (PED/ADOL 3 DOSE) DX 12/10/2011 BEAR DO, DANIELA K V05.3 HEP B (PED/ADOL 3 DOSE) DX 12/10/2011 BEAR DO, DANIELA K V05.3 HEP B (PED/ADOL 3 DOSE) DX 12/10/2011 BEAR DO, DANIELA K V05.3 HEP B (PED/ADOL 3 DOSE) DX 12/10/2011 BEAR DO, DANIELA K V05.3 HEP B (PED/ADOL 3 DOSE) DX 12/10/2011 BEAR DO, DANIELA K V05.3 HEP B (PED/ADOL 3 DOSE) DX 12/10/2011 BEAR DO, DANIELA K V05.3 HEP B (PED/ADOL 3 DOSE) DX 12/10/2011 BEAR DO, DANIELA K V05.3 HEP B (PED/ADOL 3 DOSE) DX 12/10/2011 BEAR DO, DANIELA K V05.3 HEP B (PED/ADOL 3 DOSE) DX 12/10/2011 FLAQUITA MCDUFFIE APRN V05.3 HEP B (PED/ADOL 3 DOSE) DX 12/10/2011 BEAR DO, DANIELA K V05.3 HEP B (PED/ADOL 3 DOSE) DX 12/10/2011 BEAR DO, DANIELA K V05.3 HEP B (PED/ADOL 3 DOSE) DX 12/10/2011 BEAR DO, DANIELA K V05.3 HEP B (PED/ADOL 3 DOSE) DX 12/10/2011 BEAR DO, DANIELA K V05.3 HEP B (PED/ADOL 3 DOSE) DX 12/10/2011 BEAR DO, DANIELA K V05.3 HEP B (PED/ADOL 3 DOSE) DX 12/10/2011 BEAR DO, DANIELA K V05.3 HEP B (PED/ADOL 3 DOSE) DX 12/10/2011 BEAR DO, DANIELA K V05.3 HEP B (PED/ADOL 3 DOSE) DX 12/10/2011 BEAR DO, DANIELA K V05.3 HEP B (PED/ADOL 3 DOSE) DX 12/10/2011 VASQUEZ PAZ MD V05.3 HEP B (PED/ADOL 3 DOSE) DX 12/10/2011 BEAR DO, DANIELA K V05.3 HEP B (PED/ADOL 3 DOSE) DX 12/10/2011 BEAR DO, DANIELA K V05.3 HEP B (PED/ADOL 3 DOSE) DX 12/10/2011 VASQUEZ PAZ MD V05.3 HEP B (PED/ADOL 3 DOSE) DX 12/10/2011 BEAR DO, DANIELA K V05.3 HEP B (PED/ADOL 3 DOSE) DX 12/10/2011 BEAR DO, DANIELA K V05.3 HEP B (PED/ADOL 3 DOSE) DX 12/10/2011 BEAR DO, DANIELA K V05.3 HEP B (PED/ADOL 3 DOSE) DX 12/10/2011 WESTON MARINA PA-C V05.3 HEP B (PED/ADOL 3 DOSE) DX 12/10/2011 BEAR DO, DANIELA K V05.3 HEP B (PED/ADOL 3 DOSE) DX 12/10/2011 BEAR DO, DANIELA K V05.3 HEP B (PED/ADOL 3 DOSE) DX 12/10/2011 BEAR DO, DANIELA K V05.3 HEP B (PED/ADOL 3 DOSE) DX 12/10/2011 ROSA RIZO APRN V05.3 HEP B (PED/ADOL 3 DOSE) DX 12/10/2011 BEAR DO, DANIELA K V05.3 HEP B (PED/ADOL 3 DOSE) DX 12/10/2011 BEAR DO, DANIELA K V05.3 HEP B (PED/ADOL 3 DOSE) DX 12/10/2011 BEAR DO, DANIELA K V05.3 HEP B (PED/ADOL 3 DOSE) DX 12/10/2011 BEAR DO, DANIELA K V05.3 HEP B (PED/ADOL 3 DOSE) DX 12/10/2011 BEAR DO, DANIELA K V05.3 HEP B (PED/ADOL 3 DOSE) DX 12/10/2011 FLAQUITA MCDUFFIE APRN V05.3 HEP B (PED/ADOL 3 DOSE) DX 12/10/2011 BEAR DO, DANIELA K V05.3 HEP B (PED/ADOL 3 DOSE) DX 01/02/2012 BEAR DO, DANIELA K 527.9 UNSPECIFIED DISEASE OF THE SALIVARY [place] 01/02/2012 BEAR DO DANIELA K 719.40 PAIN IN JOINT SITE UNSPECIFIED 01/02/2012 BEAR DO DANIELA K 527.9 UNSPECIFIED DISEASE OF THE SALIVARY [place] 01/02/2012 BEAR DO DANIELA K 719.40 PAIN IN JOINT SITE UNSPECIFIED 01/02/2012 BEAR DO DANIELA K 527.9 UNSPECIFIED DISEASE OF THE SALIVARY [place] 01/02/2012 BEAR DO, DANIELA K 719.40 PAIN IN JOINT SITE UNSPECIFIED 01/02/2012 BEAR DO, DANIELA K 527.9 UNSPECIFIED DISEASE OF THE SALIVARY [place] 01/02/2012 BEAR DO DANIELA K 719.40 PAIN IN JOINT SITE UNSPECIFIED 01/02/2012 BEAR DO DANIELA K 527.9 UNSPECIFIED DISEASE OF THE SALIVARY [place] 01/02/2012 BEAR DO DANIELA K 719.40 PAIN IN JOINT SITE UNSPECIFIED 01/02/2012 BEAR DO DANIELA K 527.9 UNSPECIFIED DISEASE OF THE SALIVARY [place] 01/02/2012 BEAR DO, DANIELA K 719.40 PAIN IN JOINT SITE UNSPECIFIED 01/02/2012 527.9 UNSPECIFIED DISEASE OF THE SALIVARY [place] 01/02/2012 719.40 PAIN IN JOINT SITE UNSPECIFIED 01/02/2012 527.9 UNSPECIFIED DISEASE OF THE SALIVARY [place] 01/02/2012 719.40 PAIN IN JOINT SITE UNSPECIFIED 01/02/2012 527.9 UNSPECIFIED DISEASE OF THE SALIVARY [place] 01/02/2012 719.40 PAIN IN JOINT SITE UNSPECIFIED 01/02/2012 527.9 UNSPECIFIED DISEASE OF THE SALIVARY [place] 01/02/2012 719.40 PAIN IN JOINT SITE UNSPECIFIED 01/02/2012 527.9 UNSPECIFIED DISEASE OF THE SALIVARY [place] 01/02/2012 719.40 PAIN IN JOINT SITE UNSPECIFIED 01/02/2012 BEAR DO, DANIELA K 527.9 UNSPECIFIED DISEASE OF THE SALIVARY [place] 01/02/2012 BEAR DO, DANIELA K 719.40 PAIN IN JOINT SITE UNSPECIFIED 01/02/2012 BEAR DO, DANIELA K 527.9 UNSPECIFIED DISEASE OF THE SALIVARY [place] 01/02/2012 BEAR DO, DANIELA K 719.40 PAIN IN JOINT SITE UNSPECIFIED 01/02/2012 BEAR DO, DANIELA K 527.9 UNSPECIFIED DISEASE OF THE SALIVARY [place] 01/02/2012 BEAR DO, DANIELA K 719.40 PAIN IN JOINT SITE UNSPECIFIED 01/02/2012 BEAR DO, DANIELA K 527.9 UNSPECIFIED DISEASE OF THE SALIVARY [place] 01/02/2012 BEAR DO, DANIELA K 719.40 PAIN IN JOINT SITE UNSPECIFIED 01/02/2012 BEAR DO, DANIELA K 527.9 UNSPECIFIED DISEASE OF THE SALIVARY [place] 01/02/2012 BEAR DO, DANIELA K 719.40 PAIN IN JOINT SITE UNSPECIFIED 01/02/2012 BEAR DO, DANIELA K 527.9 UNSPECIFIED DISEASE OF THE SALIVARY [place] 01/02/2012 BEAR DO, DANIELA K 719.40 PAIN IN JOINT SITE UNSPECIFIED 01/02/2012 BEAR DO, DANIELA K 527.9 UNSPECIFIED DISEASE OF THE SALIVARY [place] 01/02/2012 BEAR DO, DANIELA K 719.40 PAIN IN JOINT SITE UNSPECIFIED 01/02/2012 BEAR DO, DANIELA K 527.9 UNSPECIFIED DISEASE OF THE SALIVARY [place]ANDS 01/02/2012 BEAR DO, DANIELA K 719.40 PAIN IN JOINT SITE UNSPECIFIED 01/02/2012 BEAR DO, DANIELA K 527.9 UNSPECIFIED DISEASE OF THE SALIVARY [place]S 01/02/2012 BEAR DO, DANIELA K 719.40 PAIN IN JOINT SITE UNSPECIFIED 01/02/2012 BEAR DO, DANIELA K 527.9 UNSPECIFIED DISEASE OF THE SALIVARY [place] 01/02/2012 BEAR DO, DANIELA K 719.40 PAIN IN JOINT SITE UNSPECIFIED 01/02/2012 BEAR DO, DANIELA K 527.9 UNSPECIFIED DISEASE OF THE SALIVARY [place]S 01/02/2012 BEAR DO, DANIELA K 719.40 PAIN IN JOINT SITE UNSPECIFIED 01/02/2012 FLAQUITA MCDUFFIE APRN S 527.9 UNSPECIFIED DISEASE OF THE SALIVARY [place] 01/02/2012 FLAQUITA MCDUFFIE APRN S 719.40 PAIN IN JOINT SITE UNSPECIFIED 01/02/2012 BEAR DO, DANIELA K 527.9 UNSPECIFIED DISEASE OF THE SALIVARY [place] 01/02/2012 BEAR DO, DANIELA K 719.40 PAIN IN JOINT SITE UNSPECIFIED 01/02/2012 BEAR DO, DANIELA K 527.9 UNSPECIFIED DISEASE OF THE SALIVARY [place] 01/02/2012 BEAR DO, DANIELA K 719.40 PAIN IN JOINT SITE UNSPECIFIED 01/02/2012 BEAR DO, DANIELA K 527.9 UNSPECIFIED DISEASE OF THE SALIVARY [place] 01/02/2012 BEAR DO, DANIELA K 719.40 PAIN IN JOINT SITE UNSPECIFIED 01/02/2012 BEAR DO, DANIELA K 527.9 UNSPECIFIED DISEASE OF THE SALIVARY [place] 01/02/2012 BEAR DO, DANIELA K 719.40 PAIN IN JOINT SITE UNSPECIFIED 01/02/2012 BEAR DO, DANIELA K 527.9 UNSPECIFIED DISEASE OF THE SALIVARY [place] 01/02/2012 BEAR DO, DANIELA K 719.40 PAIN IN JOINT SITE UNSPECIFIED 01/02/2012 BEAR DO, DANIELA K 527.9 UNSPECIFIED DISEASE OF THE SALIVARY [place] 01/02/2012 BEAR DO, DANIELA K 719.40 PAIN IN JOINT SITE UNSPECIFIED 01/02/2012 BEAR DO, DANIELA K 527.9 UNSPECIFIED DISEASE OF THE SALIVARY [place] 01/02/2012 BEAR DO, DANIELA K 719.40 PAIN IN JOINT SITE UNSPECIFIED 01/02/2012 BEAR DO, DANIELA K 527.9 UNSPECIFIED DISEASE OF THE SALIVARY [place] 01/02/2012 BEAR DO, DANIELA K 719.40 PAIN IN JOINT SITE UNSPECIFIED 01/02/2012 VASQUEZ PAZ MD 527.9 UNSPECIFIED DISEASE OF THE SALIVARY [place] 01/02/2012 VASQUEZ PAZ MD 719.40 PAIN IN JOINT SITE UNSPECIFIED 01/02/2012 BEAR DO, DANIELA K 527.9 UNSPECIFIED DISEASE OF THE SALIVARY [place] 01/02/2012 BEAR DO, DANIELA K 719.40 PAIN IN JOINT SITE UNSPECIFIED 01/02/2012 BEAR DO, DANIELA K 527.9 UNSPECIFIED DISEASE OF THE SALIVARY [place] 01/02/2012 BEAR DO, DANIELA K 719.40 PAIN IN JOINT SITE UNSPECIFIED 01/02/2012 VASQUEZ PAZ MD 527.9 UNSPECIFIED DISEASE OF THE SALIVARY [place] 01/02/2012 VASQUEZ PAZ MD 719.40 PAIN IN JOINT SITE UNSPECIFIED 01/02/2012 BEAR DO, DANIELA K 527.9 UNSPECIFIED DISEASE OF THE SALIVARY [place] 01/02/2012 BEAR DO, DANIEAL K 719.40 PAIN IN JOINT SITE UNSPECIFIED 01/02/2012 BEAR DO, DANIELA K 527.9 UNSPECIFIED DISEASE OF THE SALIVARY [place] 01/02/2012 BEAR DO, DANIELA K 719.40 PAIN IN JOINT SITE UNSPECIFIED 01/02/2012 BEAR DO, DANIELA K 527.9 UNSPECIFIED DISEASE OF THE SALIVARY [place] 01/02/2012 BEAR DO, DANIELA K 719.40 PAIN IN JOINT SITE UNSPECIFIED 01/02/2012 WESTON MARINA PA-C 527.9 UNSPECIFIED DISEASE OF THE SALIVARY [place] 01/02/2012 WESTON MARINA PA-C 719.40 PAIN IN JOINT SITE UNSPECIFIED 01/02/2012 BEAR DO, DANIELA K 527.9 UNSPECIFIED DISEASE OF THE SALIVARY [place] 01/02/2012 BEAR DO, DANIELA K 719.40 PAIN IN JOINT SITE UNSPECIFIED 01/02/2012 BEAR DO, DANIELA K 527.9 UNSPECIFIED DISEASE OF THE SALIVARY [place] 01/02/2012 BEAR DO, DANIELA K 719.40 PAIN IN JOINT SITE UNSPECIFIED 01/02/2012 BEAR DO, DANIELA K 527.9 UNSPECIFIED DISEASE OF THE SALIVARY [place] 01/02/2012 BEAR DO DANIELA K 719.40 PAIN IN JOINT SITE UNSPECIFIED 01/02/2012 DARRIUS FLORENCE ROSA A 527.9 UNSPECIFIED DISEASE OF THE SAL[place] 01/02/2012 DARRIUS BIOMEDICAL MANAGER, ROSA A 719.40 PAIN IN JOINT SITE UNSPECIFIED 01/02/2012 BEAR DO, DANIELA K 527.9 UNSPECIFIED DISEASE OF THE SALIVARY [place] 01/02/2012 BEAR DO, DANIELA K 719.40 PAIN IN JOINT SITE UNSPECIFIED 01/02/2012 BEAR DO, DANIELA K 527.9 UNSPECIFIED DISEASE OF THE SALIVARY [place] 01/02/2012 BEAR DO DANIELA K 719.40 PAIN IN JOINT SITE UNSPECIFIED 01/02/2012 BEAR DO, DANIELA K 527.9 UNSPECIFIED DISEASE OF THE SALIVARY [place] 01/02/2012 BEAR DO, DANIELA K 719.40 PAIN IN JOINT SITE UNSPECIFIED 01/02/2012 BEAR DO, DANIELA K 527.9 UNSPECIFIED DISEASE OF THE SALIVARY [place] 01/02/2012 BEAR DO, DANIELA K 719.40 PAIN IN JOINT SITE UNSPECIFIED 01/02/2012 BEAR DO, DANIELA K 527.9 UNSPECIFIED DISEASE OF THE SALIVARY [place] 01/02/2012 BEAR DO, DANIELA K 719.40 PAIN IN JOINT SITE UNSPECIFIED 01/02/2012 FROY BIOMEDICAL MANAGERDARCIFLAQUITA S 527.9 UNSPECIFIED DISEASE OF THE SALIVARY [place] 01/02/2012 FROY BIOMEDICAL MANAGER FLAQUITA S 719.40 PAIN IN JOINT SITE UNSPECIFIED 01/02/2012 BEAR DO, DANIELA K 527.9 UNSPECIFIED DISEASE OF THE SALIVARY [place] 01/02/2012 BEAR DO, DANIELA K 719.40 PAIN IN JOINT SITE UNSPECIFIED 01/07/2012 BEAR DO, DANIELA K 530.81 GERD 01/07/2012 BEAR DO, DANIELA K 530.81 GERD 01/07/2012 BEAR DO, DANIELA K 530.81 GERD 01/07/2012 BEAR DO, DANIELA K 530.81 GERD 01/07/2012 BEAR DO, DANIELA K 530.81 GERD 01/07/2012 BEAR DO, DANIELA K 530.81 GERD 01/07/2012 530.81 GERD 01/07/2012 530.81 GERD 01/07/2012 530.81 GERD 01/07/2012 530.81 GERD 01/07/2012 530.81 GERD 01/07/2012 BEAR DO, DANIELA K 530.81 GERD 01/07/2012 BEAR DO, DANIELA K 530.81 GERD 01/07/2012 BEAR DO, DANIELA K 530.81 GERD 01/07/2012 BEAR DO, DANIELA K 530.81 GERD 01/07/2012 BEAR DO, DANIELA K 530.81 GERD 01/07/2012 BEAR DO, DANIELA K 530.81 GERD 01/07/2012 BEAR DO, DANIELA K 530.81 GERD 01/07/2012 BEAR DO, DANIELA K 530.81 GERD 01/07/2012 BEAR DO, DANIELA K 530.81 GERD 01/07/2012 BEAR DO, DANIELA K 530.81 GERD 01/07/2012 BEAR DO, DANIELA K 530.81 GERD 01/07/2012 FLAQUITA MCDUFFIE APRN 530.81 GERD 01/07/2012 BEAR DO, DANIELA K 530.81 GERD 01/07/2012 BEAR DO, DANIELA K 530.81 GERD 01/07/2012 BEAR DO, DANIELA K 530.81 GERD 01/07/2012 BEAR DO, DANIELA K 530.81 GERD 01/07/2012 BEAR DO, DANIELA K 530.81 GERD 01/07/2012 BEAR DO, DANIELA K 530.81 GERD 01/07/2012 BEAR DO, DANIELA K 530.81 GERD 01/07/2012 BEAR DO, DANIELA K 530.81 GERD 01/07/2012 VASQUEZ PAZ MD 530.81 GERD 01/07/2012 BEAR DO, DANIELA K 530.81 GERD 01/07/2012 BEAR DO, DANIELA K 530.81 GERD 01/07/2012 VASQUEZ PAZ MD 530.81 GERD 01/07/2012 BEAR DO, DANIELA K 530.81 GERD 01/07/2012 BEAR DO, DANIELA K 530.81 GERD 01/07/2012 BEAR DO, DANIELA K 530.81 GERD 01/07/2012 WESTON MARINA PA-C 530.81 GERD 01/07/2012 BEAR DO, DANIELA K 530.81 GERD 01/07/2012 BEAR DO, DANIELA K 530.81 GERD 01/07/2012 BEAR DO, DANIELA K 530.81 GERD 01/07/2012 ROSA RIZO APRN 530.81 GERD 01/07/2012 BEAR DO, DANIELA K 530.81 GERD 01/07/2012 BEAR DO, DANIELA K 530.81 GERD 01/07/2012 BEAR DO, DANIELA K 530.81 GERD 01/07/2012 BEAR DO, DANIELA K 530.81 GERD 01/07/2012 BEAR DO, DANIELA K 530.81 GERD 01/07/2012 FLAQUITA MCDUFFIE APRN 530.81 GERD 01/07/2012 BEAR DO, DANIELA K 530.81 GERD 02/06/2012 BEAR DO, DANIELA K V03.82 PCV-13 (PREVNAR) DX 02/06/2012 BEAR DO, DANIELA K V04.81 FLU DX (3 YRS AND ABOVE, IM) 02/06/2012 BEAR DO, DANIELA K V03.82 PCV-13 (PREVNAR) DX 02/06/2012 BEAR DO, DANIELA K V04.81 FLU DX (3 YRS AND ABOVE, IM) 02/06/2012 BEAR DO, DANIELA K V03.82 Pcv-13 (prevnar) Dx 02/06/2012 BEAR DO, DANIELA K V04.81 Flu Dx (3 Yrs And Above, Im) 02/06/2012 BEAR DO, DANIELA K V03.82 Pcv-13 (prevnar) Dx 02/06/2012 BEAR DO, DANIELA K V04.81 Flu Dx (3 Yrs And Above, Im) 02/06/2012 BEAR DO, DANIELA K V03.82 Pcv-13 (prevnar) Dx 02/06/2012 BEAR DO, DANIELA K V04.81 Flu Dx (3 Yrs And Above, Im) 02/06/2012 BEAR DO, DANIELA K V03.82 Pcv-13 (prevnar) Dx 02/06/2012 BEAR DO DANIELA K V04.81 Flu Dx (3 Yrs And Above, Im) 02/06/2012 V03.82 Pcv-13 ( prevnar) Dx 02/06/2012 V04.81 Flu Dx (3 Yrs And Above, Im) 02/06/2012 V03.82 Pcv-13 ( prevnar) Dx 02/06/2012 V04.81 Flu Dx (3 Yrs And Above, Im) 02/06/2012 V03.82 Pcv-13 ( prevnar) Dx 02/06/2012 V04.81 Flu Dx (3 Yrs And Above, Im) 02/06/2012 V03.82 Pcv-13 ( prevnar) Dx 02/06/2012 V04.81 Flu Dx (3 Yrs And Above, Im) 02/06/2012 V03.82 Pcv-13 ( prevnar) Dx 02/06/2012 V04.81 Flu Dx (3 Yrs And Above, Im) 02/06/2012 BEAR DOPURVIA K V03.82 Pcv-13 (prevnar) Dx 02/06/2012 BEAR DO, DANIELA K V04.81 Flu Dx (3 Yrs And Above, Im) 02/06/2012 BEAR DO, DANIELA K V03.82 Pcv-13 (prevnar) Dx 02/06/2012 BEAR DO DANIELA K V04.81 Flu Dx (3 Yrs And Above, Im) 02/06/2012 BEAR DO, DANIELA K V03.82 Pcv-13 (prevnar) Dx 02/06/2012 BEAR DO, DANIELA K V04.81 Flu Dx (3 Yrs And Above, Im) 02/06/2012 BEAR DO, DANIELA K V03.82 Pcv-13 (prevnar) Dx 02/06/2012 BEAR DO, DANIELA K V04.81 Flu Dx (3 Yrs And Above, Im) 02/06/2012 BEAR DO, DANIELA K V03.82 Pcv-13 (prevnar) Dx 02/06/2012 BEAR DO, DANIELA K V04.81 Flu Dx (3 Yrs And Above, Im) 02/06/2012 BEAR DO, DANIELA K V03.82 Pcv-13 (prevnar) Dx 02/06/2012 BEAR DO, DANIELA K V04.81 Flu Dx (3 Yrs And Above, Im) 02/06/2012 BEAR DO, DANIELA K V03.82 Pcv-13 (prevnar) Dx 02/06/2012 BEAR DO, DANIELA K V04.81 Flu Dx (3 Yrs And Above, Im) 02/06/2012 BEAR DO, DANIELA K V03.82 Pcv-13 (prevnar) Dx 02/06/2012 BEAR DO, DANIELA K V04.81 Flu Dx (3 Yrs And Above, Im) 02/06/2012 BEAR DO, DANIELA K V03.82 Pcv-13 (prevnar) Dx 02/06/2012 BEAR DO, DANIELA K V04.81 Flu Dx (3 Yrs And Above, Im) 02/06/2012 BEAR DO, DANIELA K V03.82 Pcv-13 (prevnar) Dx 02/06/2012 BEAR DO, DANIELA K V04.81 Flu Dx (3 Yrs And Above, Im) 02/06/2012 BEAR DO, DANIELA K V03.82 Pcv-13 (prevnar) Dx 02/06/2012 BEAR DO, DANIELA K V04.81 Flu Dx (3 Yrs And Above, Im) 02/06/2012 FROY BIOMEDICAL MANAGER, FLAQUITA S V03.82 Pcv-13 (prevnar) Dx 02/06/2012 FROY BIOMEDICAL MANAGER, FLAQUITA S V04.81 Flu Dx (3 Yrs And Above, Im) 02/06/2012 BEAR DO, DANIELA K V03.82 Pcv-13 (prevnar) Dx 02/06/2012 BEAR DO, DANIELA K V04.81 Flu Dx (3 Yrs And Above, Im) 02/06/2012 BEAR DO, DANIELA K V03.82 Pcv-13 (prevnar) Dx 02/06/2012 BEAR DO, DANIELA K V04.81 Flu Dx (3 Yrs And Above, Im) 02/06/2012 BEAR DO, DANIELA K V03.82 Pcv-13 (prevnar) Dx 02/06/2012 BEAR DO, DANIELA K V04.81 Flu Dx (3 Yrs And Above, Im) 02/06/2012 BEAR DO, DANIELA K V03.82 Pcv-13 (prevnar) Dx 02/06/2012 BEAR DO, DANIELA K V04.81 Flu Dx (3 Yrs And Above, Im) 02/06/2012 BEAR DO, DANIELA K V03.82 Pcv-13 (prevnar) Dx 02/06/2012 BEAR DO, DANIELA K V04.81 Flu Dx (3 Yrs And Above, Im) 02/06/2012 BEAR DO, DANIELA K V03.82 Pcv-13 (prevnar) Dx 02/06/2012 BEAR DO, DANIELA K V04.81 Flu Dx (3 Yrs And Above, Im) 02/06/2012 BEAR DO, DANIELA K V03.82 Pcv-13 (prevnar) Dx 02/06/2012 BEAR DO, DANIELA K V04.81 Flu Dx (3 Yrs And Above, Im) 02/06/2012 BEAR DO, DANIELA K V03.82 Pcv-13 (prevnar) Dx 02/06/2012 BEAR DO, DANIELA K V04.81 Flu Dx (3 Yrs And Above, Im) 02/06/2012 VASQUEZ PAZ MD V03.82 Pcv-13 (prevnar) Dx 02/06/2012 VASQUEZ PAZ MD V04.81 Flu Dx (3 Yrs And Above, Im) 02/06/2012 BEAR DO, DANIELA K V03.82 Pcv-13 (prevnar) Dx 02/06/2012 BEAR DO, DANIELA K V04.81 Flu Dx (3 Yrs And Above, Im) 02/06/2012 BEAR DO, DANIELA K V03.82 Pcv-13 (prevnar) Dx 02/06/2012 BEAR DO, DANIELA K V04.81 Flu Dx (3 Yrs And Above, Im) 02/06/2012 VASQUEZ PAZ MD V03.82 Pcv-13 (prevnar) Dx 02/06/2012 JACKSON YEH, VASQUEZ V04.81 Flu Dx (3 Yrs And Above, Im) 02/06/2012 BEAR DO, DANIELA K V03.82 Pcv-13 (prevnar) Dx 02/06/2012 BEAR DO, DANIELA K V04.81 Flu Dx (3 Yrs And Above, Im) 02/06/2012 BEAR DO, DANIELA K V03.82 Pcv-13 (prevnar) Dx 02/06/2012 BEAR DO, DANIELA K V04.81 Flu Dx (3 Yrs And Above, Im) 02/06/2012 BEAR DO, DANIELA K V03.82 Pcv-13 (prevnar) Dx 02/06/2012 BEAR DO, DANIELA K V04.81 Flu Dx (3 Yrs And Above, Im) 02/06/2012 WESTON MARINA PA-C V03.82 Pcv-13 (prevnar) Dx 02/06/2012 WESTON MARINA PA-C V04.81 Flu Dx (3 Yrs And Above, Im) 02/06/2012 BEAR DO, DANIELA K V03.82 Pcv-13 (prevnar) Dx 02/06/2012 BEAR DO, DANIELA K V04.81 Flu Dx (3 Yrs And Above, Im) 02/06/2012 BEAR DO, DANIELA K V03.82 Pcv-13 (prevnar) Dx 02/06/2012 BEAR DO, DANIELA K V04.81 Flu Dx (3 Yrs And Above, Im) 02/06/2012 BERA DO, DANIELA K V03.82 Pcv-13 (prevnar) Dx 02/06/2012 BEAR DO, DANIELA K V04.81 Flu Dx (3 Yrs And Above, Im) 02/06/2012 DARRIUS BIOMEDICAL MANAGER, ROSA A V03.82 Pcv-13 (prevnar) Dx 02/06/2012 KATIEE BIOMEDICAL MANAGER, ROSA A V04.81 Flu Dx (3 Yrs And Above, Im) 02/06/2012 BEAR DO, DANIELA K V03.82 Pcv-13 (prevnar) Dx 02/06/2012 BEAR DO, DANIELA K V04.81 Flu Dx (3 Yrs And Above, Im) 02/06/2012 BEAR DO, DANIELA K V03.82 Pcv-13 (prevnar) Dx 02/06/2012 BEAR DO, DANIELA K V04.81 Flu Dx (3 Yrs And Above, Im) 02/06/2012 BEAR DO, DANIELA K V03.82 Pcv-13 (prevnar) Dx 02/06/2012 BEAR DO, DANIELA K V04.81 Flu Dx (3 Yrs And Above, Im) 02/06/2012 BEAR DO, DANIELA K V03.82 Pcv-13 (prevnar) Dx 02/06/2012 BEAR DO, DANIELA K V04.81 Flu Dx (3 Yrs And Above, Im) 02/06/2012 BEAR DO, DANIELA K V03.82 Pcv-13 (prevnar) Dx 02/06/2012 BEAR DO, DANIELA K V04.81 Flu Dx (3 Yrs And Above, Im) 02/06/2012 FROY BIOMEDICAL MANAGER, FLAQUITA S V03.82 Pcv-13 (prevnar) Dx 02/06/2012 FROY BIOMEDICAL MANAGER, FLAQUITA S V04.81 Flu Dx (3 Yrs And Above, Im) 02/06/2012 BEAR DO, DANIELA K V03.82 Pcv-13 (prevnar) Dx 02/06/2012 BEAR DO, DANIELA K V04.81 Flu Dx (3 Yrs And Above, Im) 04/16/2012 BEAR DO, DANIELA K 782.0 DISTURBANCE OF SKIN SENSATION 04/16/2012 BEAR DO, DANIELA K 782.9 OTHER SYMPTOMS INVOLVING SKIN AND INTEGUMENTARY TISSUES 04/16/2012 BEAR DO, DANIELA K V05.8 ZOSTAVAX DX 04/16/2012 BEAR DO, DANIELA K 782.0 DISTURBANCE OF SKIN SENSATION 04/16/2012 BEAR DO, DANIELA K 782.9 OTHER SYMPTOMS INVOLVING SKIN AND INTEGUMENTARY TISSUES 04/16/2012 BEAR DO, DANIELA K V05.8 ZOSTAVAX DX 04/16/2012 BEAR DO, DANIELA K 782.0 DISTURBANCE OF SKIN SENSATION 04/16/2012 BEAR DO, DANIELA K 782.9 OTHER SYMPTOMS INVOLVING SKIN AND INTEGUMENTARY TISSUES 04/16/2012 BEAR DO, DANIELA K V05.8 ZOSTAVAX DX 04/16/2012 BEAR DO, DANIELA K 782.0 DISTURBANCE OF SKIN SENSATION 04/16/2012 BEAR DO, DANIELA K 782.9 OTHER SYMPTOMS INVOLVING SKIN AND INTEGUMENTARY TISSUES 04/16/2012 BEAR DO, DANIELA K V05.8 ZOSTAVAX DX 04/16/2012 782.0 DISTURBANCE OF SKIN SENSATION 04/16/2012 782.9 OTHER SYMPTOMS INVOLVING SKIN AND INTEGUMENTARY TISSUES 04/16/2012 V05.8 ZOSTAVAX DX 04/16/2012 782.0 DISTURBANCE OF SKIN SENSATION 04/16/2012 782.9 OTHER SYMPTOMS INVOLVING SKIN AND INTEGUMENTARY TISSUES 04/16/2012 V05.8 ZOSTAVAX DX 04/16/2012 782.0 DISTURBANCE OF SKIN SENSATION 04/16/2012 782.9 OTHER SYMPTOMS INVOLVING SKIN AND INTEGUMENTARY TISSUES 04/16/2012 V05.8 ZOSTAVAX DX 04/16/2012 782.0 DISTURBANCE OF SKIN SENSATION 04/16/2012 782.9 OTHER SYMPTOMS INVOLVING SKIN AND INTEGUMENTARY TISSUES 04/16/2012 V05.8 ZOSTAVAX DX 04/16/2012 782.0 DISTURBANCE OF SKIN SENSATION 04/16/2012 782.9 OTHER SYMPTOMS INVOLVING SKIN AND INTEGUMENTARY TISSUES 04/16/2012 V05.8 ZOSTAVAX DX 04/16/2012 BEAR DO, DANIELA K 782.0 DISTURBANCE OF SKIN SENSATION 04/16/2012 BEAR DO, DANIELA K 782.9 OTHER SYMPTOMS INVOLVING SKIN AND INTEGUMENTARY TISSUES 04/16/2012 BEAR DO, DANIELA K V05.8 ZOSTAVAX DX 04/16/2012 BEAR DO, DANIELA K 782.0 DISTURBANCE OF SKIN SENSATION 04/16/2012 BEAR DO, DANIELA K 782.9 OTHER SYMPTOMS INVOLVING SKIN AND INTEGUMENTARY TISSUES 04/16/2012 BEAR DO, DANIELA K V05.8 ZOSTAVAX DX 04/16/2012 BEAR DO, DANIELA K 782.0 DISTURBANCE OF SKIN SENSATION 04/16/2012 BEAR DO, DANIELA K 782.9 OTHER SYMPTOMS INVOLVING SKIN AND INTEGUMENTARY TISSUES 04/16/2012 BEAR DO, DANIELA K V05.8 ZOSTAVAX DX 04/16/2012 BEAR DO, DANIELA K 782.0 DISTURBANCE OF SKIN SENSATION 04/16/2012 BEAR DO, DANIELA K 782.9 OTHER SYMPTOMS INVOLVING SKIN AND INTEGUMENTARY TISSUES 04/16/2012 BEAR DO, DANIELA K V05.8 ZOSTAVAX DX 04/16/2012 BEAR DO, DANIELA K 782.0 DISTURBANCE OF SKIN SENSATION 04/16/2012 BEAR DO, DANIELA K 782.9 OTHER SYMPTOMS INVOLVING SKIN AND INTEGUMENTARY TISSUES 04/16/2012 BEAR DO, DANIELA K V05.8 ZOSTAVAX DX 04/16/2012 BEAR DO, DANIELA K 782.0 DISTURBANCE OF SKIN SENSATION 04/16/2012 BEAR DO, DANIELA K 782.9 OTHER SYMPTOMS INVOLVING SKIN AND INTEGUMENTARY TISSUES 04/16/2012 BEAR DO, DANIELA K V05.8 ZOSTAVAX DX 04/16/2012 BEAR DO, DANIEAL K 782.0 DISTURBANCE OF SKIN SENSATION 04/16/2012 BEAR DO, DANIELA K 782.9 OTHER SYMPTOMS INVOLVING SKIN AND INTEGUMENTARY TISSUES 04/16/2012 BEAR DO, DANIELA K V05.8 ZOSTAVAX DX 04/16/2012 BEAR DO, DANIELA K 782.0 DISTURBANCE OF SKIN SENSATION 04/16/2012 BEAR DO, DANIELA K 782.9 OTHER SYMPTOMS INVOLVING SKIN AND INTEGUMENTARY TISSUES 04/16/2012 BEAR DO, DANIELA K V05.8 ZOSTAVAX DX 04/16/2012 BEAR DO, DANIELA K 782.0 DISTURBANCE OF SKIN SENSATION 04/16/2012 BEAR DO, DANIELA K 782.9 OTHER SYMPTOMS INVOLVING SKIN AND INTEGUMENTARY TISSUES 04/16/2012 BEAR DO, DANIELA K V05.8 ZOSTAVAX DX 04/16/2012 BEAR DO, DANIELA K 782.0 DISTURBANCE OF SKIN SENSATION 04/16/2012 BEAR DO, DANIELA K 782.9 OTHER SYMPTOMS INVOLVING SKIN AND INTEGUMENTARY TISSUES 04/16/2012 BEAR DO, DANIELA K V05.8 ZOSTAVAX DX 04/16/2012 BEAR DO, DANIELA K 782.0 DISTURBANCE OF SKIN SENSATION 04/16/2012 BEAR DO, DANIELA K 782.9 OTHER SYMPTOMS INVOLVING SKIN AND INTEGUMENTARY TISSUES 04/16/2012 BEAR DO, DANIELA K V05.8 ZOSTAVAX DX 04/16/2012 FROY BIOMEDICAL MANAGER FLAQUITA S 782.0 DISTURBANCE OF SKIN SENSATION 04/16/2012 FROY BIOMEDICAL MANAGER, FLAQUITA S 782.9 OTHER SYMPTOMS INVOLVING SKIN AND INTEGUMENTARY TISSUES 04/16/2012 FROY BIOMEDICAL MANAGERKHUSHBUA S V05.8 ZOSTAVAX DX 04/16/2012 BEAR DO, DANIELA K 782.0 DISTURBANCE OF SKIN SENSATION 04/16/2012 BEAR DO, DANIELA K 782.9 OTHER SYMPTOMS INVOLVING SKIN AND INTEGUMENTARY TISSUES 04/16/2012 BEAR DO, DANIELA K V05.8 ZOSTAVAX DX 04/16/2012 BEAR DO, DANIELA K 782.0 DISTURBANCE OF SKIN SENSATION 04/16/2012 BEAR DO, DANIELA K 782.9 OTHER SYMPTOMS INVOLVING SKIN AND INTEGUMENTARY TISSUES 04/16/2012 BEAR DO, DANIELA K V05.8 ZOSTAVAX DX 04/16/2012 BEAR DO, DANIELA K 782.0 DISTURBANCE OF SKIN SENSATION 04/16/2012 BEAR DO, DANIELA K 782.9 OTHER SYMPTOMS INVOLVING SKIN AND INTEGUMENTARY TISSUES 04/16/2012 BEAR DO, DANIELA K V05.8 ZOSTAVAX DX 04/16/2012 BEAR DO, DANIELA K 782.0 DISTURBANCE OF SKIN SENSATION 04/16/2012 BEAR DO, DANIELA K 782.9 OTHER SYMPTOMS INVOLVING SKIN AND INTEGUMENTARY TISSUES 04/16/2012 BEAR DO, DANIELA K V05.8 ZOSTAVAX DX 04/16/2012 BEAR DO, DANIELA K 782.0 DISTURBANCE OF SKIN SENSATION 04/16/2012 BEAR DO, DANIELA K 782.9 OTHER SYMPTOMS INVOLVING SKIN AND INTEGUMENTARY TISSUES 04/16/2012 BEAR DO, DANIELA K V05.8 ZOSTAVAX DX 04/16/2012 BEAR DO, DANIELA K 782.0 DISTURBANCE OF SKIN SENSATION 04/16/2012 BEAR DO, DANIELA K 782.9 OTHER SYMPTOMS INVOLVING SKIN AND INTEGUMENTARY TISSUES 04/16/2012 BEAR DO, DANIELA K V05.8 ZOSTAVAX DX 04/16/2012 BEAR DO, DANIELA K 782.0 DISTURBANCE OF SKIN SENSATION 04/16/2012 BEAR DO, DANIELA K 782.9 OTHER SYMPTOMS INVOLVING SKIN AND INTEGUMENTARY TISSUES 04/16/2012 BEAR DO, DANIELA K V05.8 ZOSTAVAX DX 04/16/2012 BEAR DO, DANIELA K 782.0 DISTURBANCE OF SKIN SENSATION 04/16/2012 BEAR DO, DANIELA K 782.9 OTHER SYMPTOMS INVOLVING SKIN AND INTEGUMENTARY TISSUES 04/16/2012 BEAR DO, DANIELA K V05.8 ZOSTAVAX DX 04/16/2012 VASQUEZ PAZ MD 782.0 DISTURBANCE OF SKIN SENSATION 04/16/2012 VASQUEZ PAZ MD 782.9 OTHER SYMPTOMS INVOLVING SKIN AND INTEGUMENTARY TISSUES 04/16/2012 VASQUEZ PAZ MD V05.8 ZOSTAVAX DX 04/16/2012 BEAR DO, DANIELA K 782.0 DISTURBANCE OF SKIN SENSATION 04/16/2012 BEAR DO, DANIELA K 782.9 OTHER SYMPTOMS INVOLVING SKIN AND INTEGUMENTARY TISSUES 04/16/2012 BEAR DO, DANIELA K V05.8 ZOSTAVAX DX 04/16/2012 BEAR DO, DANIELA K 782.0 DISTURBANCE OF SKIN SENSATION 04/16/2012 BEAR DO, DANIELA K 782.9 OTHER SYMPTOMS INVOLVING SKIN AND INTEGUMENTARY TISSUES 04/16/2012 BEAR DO, DANIELA K V05.8 ZOSTAVAX DX 04/16/2012 VASQUEZ PAZ MD 782.0 DISTURBANCE OF SKIN SENSATION 04/16/2012 VASQUEZ PAZ MD 782.9 OTHER SYMPTOMS INVOLVING SKIN AND INTEGUMENTARY TISSUES 04/16/2012 VASQUEZ PAZ MD V05.8 ZOSTAVAX DX 04/16/2012 BEAR DO, DANIELA K 782.0 DISTURBANCE OF SKIN SENSATION 04/16/2012 BEAR DO, DANIELA K 782.9 OTHER SYMPTOMS INVOLVING SKIN AND INTEGUMENTARY TISSUES 04/16/2012 BEAR DO, DANIELA K V05.8 ZOSTAVAX DX 04/16/2012 BEAR DO, DANIELA K 782.0 DISTURBANCE OF SKIN SENSATION 04/16/2012 BEAR DO, DANIELA K 782.9 OTHER SYMPTOMS INVOLVING SKIN AND INTEGUMENTARY TISSUES 04/16/2012 BEAR DO, DANIELA K V05.8 ZOSTAVAX DX 04/16/2012 BEAR DO, DANIELA K 782.0 DISTURBANCE OF SKIN SENSATION 04/16/2012 BEAR DO, DANIELA K 782.9 OTHER SYMPTOMS INVOLVING SKIN AND INTEGUMENTARY TISSUES 04/16/2012 BEAR DO, DANIELA K V05.8 ZOSTAVAX DX 04/16/2012 WESTON MARINA PA-C 782.0 DISTURBANCE OF SKIN SENSATION 04/16/2012 WESTON MARINA PA-C 782.9 OTHER SYMPTOMS INVOLVING SKIN AND INTEGUMENTARY TISSUES 04/16/2012 WESTON MARINA PA-C V05.8 ZOSTAVAX DX 04/16/2012 BAER DO, DANIELA K 782.0 DISTURBANCE OF SKIN SENSATION 04/16/2012 BEAR DO, DANIELA K 782.9 OTHER SYMPTOMS INVOLVING SKIN AND INTEGUMENTARY TISSUES 04/16/2012 BEAR DO, DANIELA K V05.8 ZOSTAVAX DX 04/16/2012 BEAR DO, DANIELA K 782.0 DISTURBANCE OF SKIN SENSATION 04/16/2012 BEAR DO, DANIELA K 782.9 OTHER SYMPTOMS INVOLVING SKIN AND INTEGUMENTARY TISSUES 04/16/2012 BEAR DO, DANIELA K V05.8 ZOSTAVAX DX 04/16/2012 BEAR DO, DANIELA K 782.0 DISTURBANCE OF SKIN SENSATION 04/16/2012 BEAR DO, DANIELA K 782.9 OTHER SYMPTOMS INVOLVING SKIN AND INTEGUMENTARY TISSUES 04/16/2012 BEAR DO, DANIELA K V05.8 ZOSTAVAX DX 04/16/2012 KATIEE BIOMEDICAL MANAGER, ROSA A 782.0 DISTURBANCE OF SKIN SENSATION 04/16/2012 KATIEE BIOMEDICAL MANAGER, ROSA A 782.9 OTHER SYMPTOMS INVOLVING SKIN AND INTEGUMENTARY TISSUES 04/16/2012 RAJMARANDAE BIOMEDICAL MANAGER, ROSA A V05.8 ZOSTAVAX DX 04/16/2012 BEAR DO, DANIELA K 782.0 DISTURBANCE OF SKIN SENSATION 04/16/2012 BEAR DO, DANIELA K 782.9 OTHER SYMPTOMS INVOLVING SKIN AND INTEGUMENTARY TISSUES 04/16/2012 BEAR DO, DANIELA K V05.8 ZOSTAVAX DX 04/16/2012 BEAR DO, DANIELA K 782.0 DISTURBANCE OF SKIN SENSATION 04/16/2012 BEAR DO, DANIELA K 782.9 OTHER SYMPTOMS INVOLVING SKIN AND INTEGUMENTARY TISSUES 04/16/2012 BEAR DO, DANIELA K V05.8 ZOSTAVAX DX 04/16/2012 BEAR DO, DANIELA K 782.0 DISTURBANCE OF SKIN SENSATION 04/16/2012 BEAR DO, DANIELA K 782.9 OTHER SYMPTOMS INVOLVING SKIN AND INTEGUMENTARY TISSUES 04/16/2012 BEAR DO, DANIELA K V05.8 ZOSTAVAX DX 04/16/2012 BEAR DO, DANIELA K 782.0 DISTURBANCE OF SKIN SENSATION 04/16/2012 BEAR DO, DANIELA K 782.9 OTHER SYMPTOMS INVOLVING SKIN AND INTEGUMENTARY TISSUES 04/16/2012 BEAR DO, DANIELA K V05.8 ZOSTAVAX DX 04/16/2012 BEAR DO, DANIELA K 782.0 DISTURBANCE OF SKIN SENSATION 04/16/2012 BEAR DO, DANIELA K 782.9 OTHER SYMPTOMS INVOLVING SKIN AND INTEGUMENTARY TISSUES 04/16/2012 BEAR DO, DANIELA K V05.8 ZOSTAVAX DX 04/16/2012 FROY BIOMEDICAL MANAGER FLAQUITA S 782.0 DISTURBANCE OF SKIN SENSATION 04/16/2012 FROY BIOMEDICAL MANAGER FLAQUITA S 782.9 OTHER SYMPTOMS INVOLVING SKIN AND INTEGUMENTARY TISSUES 04/16/2012 FROY BIOMEDICAL MANAGER, FLAQUITA S V05.8 ZOSTAVAX DX 04/16/2012 BEAR DO, DANIELA K 782.0 DISTURBANCE OF SKIN SENSATION 04/16/2012 BEAR DO, DANIELA K 782.9 OTHER SYMPTOMS INVOLVING SKIN AND INTEGUMENTARY TISSUES 04/16/2012 BEAR DO, DANIELA K V05.8 ZOSTAVAX DX 05/19/2012 BEAR DO, DANIELA K E888.9 UNSPECIFIED ACCIDENTAL FALL 05/19/2012 BEAR DO, DANIELA K V76.10 BREAST CANCER SCREENING 05/19/2012 BEAR DO, DANIELA K V76.2 CERVICAL CANCER SCREENING (PAP SMEAR) 05/19/2012 BEAR DO, DANIELA K E888.9 UNSPECIFIED ACCIDENTAL FALL 05/19/2012 BEAR DO, DANIELA K V76.10 BREAST CANCER SCREENING 05/19/2012 BEAR DO, DANIELA K V76.2 CERVICAL CANCER SCREENING (PAP SMEAR) 05/19/2012 BEAR DO, DANIELA K E888.9 UNSPECIFIED ACCIDENTAL FALL 05/19/2012 BEAR DO, DANIELA K V76.10 BREAST CANCER SCREENING 05/19/2012 BEAR DO, DANIELA K V76.2 CERVICAL CANCER SCREENING (PAP SMEAR) 05/19/2012 E888.9 UNSPECIFIED ACCIDENTAL FALL 05/19/2012 V76.10 BREAST CANCER SCREENING 05/19/2012 V76.2 CERVICAL CANCER SCREENING (PAP SMEAR) 05/19/2012 E888.9 UNSPECIFIED ACCIDENTAL FALL 05/19/2012 V76.10 BREAST CANCER SCREENING 05/19/2012 V76.2 CERVICAL CANCER SCREENING (PAP SMEAR) 05/19/2012 E888.9 UNSPECIFIED ACCIDENTAL FALL 05/19/2012 V76.10 BREAST CANCER SCREENING 05/19/2012 V76.2 CERVICAL CANCER SCREENING (PAP SMEAR) 05/19/2012 E888.9 UNSPECIFIED ACCIDENTAL FALL 05/19/2012 V76.10 BREAST CANCER SCREENING 05/19/2012 V76.2 CERVICAL CANCER SCREENING (PAP SMEAR) 05/19/2012 E888.9 UNSPECIFIED ACCIDENTAL FALL 05/19/2012 V76.10 BREAST CANCER SCREENING 05/19/2012 V76.2 CERVICAL CANCER SCREENING (PAP SMEAR) 05/19/2012 DANIELA BEAR DO E888.9 UNSPECIFIED ACCIDENTAL FALL 05/19/2012 PURVI BEAR DOA K V76.10 BREAST CANCER SCREENING 05/19/2012 BEAR PURVI PHILIPA K V76.2 CERVICAL CANCER SCREENING (PAP SMEAR) 05/19/2012 DANIELA BEAR DO K E888.9 UNSPECIFIED ACCIDENTAL FALL 05/19/2012 PURVI BEAR DOA K V76.10 BREAST CANCER SCREENING 05/19/2012 PURVI BEAR DOA K V76.2 CERVICAL CANCER SCREENING (PAP SMEAR) 05/19/2012 DANIELA BEAR DO K E888.9 UNSPECIFIED ACCIDENTAL FALL 05/19/2012 PURVI BEAR DOA K V76.10 BREAST CANCER SCREENING 05/19/2012 BEAR PURVI PHILIPA K V76.2 CERVICAL CANCER SCREENING (PAP SMEAR) 05/19/2012 PURVI BEAR DOA K E888.9 UNSPECIFIED ACCIDENTAL FALL 05/19/2012 PURVI BEAR DOA K V76.10 BREAST CANCER SCREENING 05/19/2012 BEAR DO DANIELA K V76.2 CERVICAL CANCER SCREENING (PAP SMEAR) 05/19/2012 PURVI BEAR DOA K E888.9 UNSPECIFIED ACCIDENTAL FALL 05/19/2012 PURVI BEAR DOA K V76.10 BREAST CANCER SCREENING 05/19/2012 BEAR DO, DANIELA K V76.2 CERVICAL CANCER SCREENING (PAP SMEAR) 05/19/2012 BEAR DO, DANIELA K E888.9 UNSPECIFIED ACCIDENTAL FALL 05/19/2012 BEAR DO, DANIELA K V76.10 BREAST CANCER SCREENING 05/19/2012 BEAR DO, DANIELA K V76.2 CERVICAL CANCER SCREENING (PAP SMEAR) 05/19/2012 BEAR DO, DANIELA K E888.9 UNSPECIFIED ACCIDENTAL FALL 05/19/2012 BEAR DO, DANIELA K V76.10 BREAST CANCER SCREENING 05/19/2012 BEAR DO, DANIELA K V76.2 CERVICAL CANCER SCREENING (PAP SMEAR) 05/19/2012 BEAR DO, DANIELA K E888.9 UNSPECIFIED ACCIDENTAL FALL 05/19/2012 BEAR DO, DANIELA K V76.10 BREAST CANCER SCREENING 05/19/2012 BEAR DO, DANIELA K V76.2 CERVICAL CANCER SCREENING (PAP SMEAR) 05/19/2012 BEAR DO, DANIELA K E888.9 UNSPECIFIED ACCIDENTAL FALL 05/19/2012 BEAR DO, DANIELA K V76.10 BREAST CANCER SCREENING 05/19/2012 BEAR DO, DANIELA K V76.2 CERVICAL CANCER SCREENING (PAP SMEAR) 05/19/2012 BEAR DO, DANIELA K E888.9 UNSPECIFIED ACCIDENTAL FALL 05/19/2012 BEAR DO, DANIELA K V76.10 BREAST CANCER SCREENING 05/19/2012 BEAR DO, DANIELA K V76.2 CERVICAL CANCER SCREENING (PAP SMEAR) 05/19/2012 BEAR DO, DANIELA K E888.9 UNSPECIFIED ACCIDENTAL FALL 05/19/2012 BEAR DO, DANIELA K V76.10 BREAST CANCER SCREENING 05/19/2012 BEAR DO, DANIELA K V76.2 CERVICAL CANCER SCREENING (PAP SMEAR) 05/19/2012 FROY BIOMEDICAL MANAGERDARCI JudgeNDA S E888.9 UNSPECIFIED ACCIDENTAL FALL 05/19/2012 FROY BIOMEDICAL MANAGERDARCIFLAQUITA S V76.10 BREAST CANCER SCREENING 05/19/2012 FROY BIOMEDICAL MANAGER FLAQUITA S V76.2 CERVICAL CANCER SCREENING (PAP SMEAR) 05/19/2012 BEAR DO, DANIELA K E888.9 UNSPECIFIED ACCIDENTAL FALL 05/19/2012 BEAR DO, DANIELA K V76.10 BREAST CANCER SCREENING 05/19/2012 BEAR DO, DANIELA K V76.2 CERVICAL CANCER SCREENING (PAP SMEAR) 05/19/2012 BEAR DO, DANIELA K E888.9 UNSPECIFIED ACCIDENTAL FALL 05/19/2012 BEAR DO DANIELA K V76.10 BREAST CANCER SCREENING 05/19/2012 BEAR DO, DANIELA K V76.2 CERVICAL CANCER SCREENING (PAP SMEAR) 05/19/2012 BEAR DO, DANIELA K E888.9 UNSPECIFIED ACCIDENTAL FALL 05/19/2012 BEAR DO DANIELA K V76.10 BREAST CANCER SCREENING 05/19/2012 BEAR DO DANIELA K V76.2 CERVICAL CANCER SCREENING (PAP SMEAR) 05/19/2012 BEAR DO, DANIELA K E888.9 UNSPECIFIED ACCIDENTAL FALL 05/19/2012 BEAR DO DANIELA K V76.10 BREAST CANCER SCREENING 05/19/2012 BEAR DO DANIELA K V76.2 CERVICAL CANCER SCREENING (PAP SMEAR) 05/19/2012 BEAR DO DANIELA K E888.9 UNSPECIFIED ACCIDENTAL FALL 05/19/2012 BEAR DO DANIELA K V76.10 BREAST CANCER SCREENING 05/19/2012 BEAR DO DANIELA K V76.2 CERVICAL CANCER SCREENING (PAP SMEAR) 05/19/2012 BEAR DO DANIELA K E888.9 UNSPECIFIED ACCIDENTAL FALL 05/19/2012 BEAR DO DANIELA K V76.10 BREAST CANCER SCREENING 05/19/2012 BEAR DO DANIELA K V76.2 CERVICAL CANCER SCREENING (PAP SMEAR) 05/19/2012 BEAR DO DANIELA K E888.9 UNSPECIFIED ACCIDENTAL FALL 05/19/2012 BEAR DO DANIELA K V76.10 BREAST CANCER SCREENING 05/19/2012 BEAR DO DANIELA K V76.2 CERVICAL CANCER SCREENING (PAP SMEAR) 05/19/2012 BEAR DO DANIELA K E888.9 UNSPECIFIED ACCIDENTAL FALL 05/19/2012 BEAR DO DANIELA K V76.10 BREAST CANCER SCREENING 05/19/2012 BEAR DO DANIELA K V76.2 CERVICAL CANCER SCREENING (PAP SMEAR) 05/19/2012 VASQUEZ PAZ MD E888.9 UNSPECIFIED ACCIDENTAL FALL 05/19/2012 VASQUEZ PAZ MD V76.10 BREAST CANCER SCREENING 05/19/2012 VASQUEZ PAZ MD V76.2 CERVICAL CANCER SCREENING (PAP SMEAR) 05/19/2012 BEAR DO DANIELA K E888.9 UNSPECIFIED ACCIDENTAL FALL 05/19/2012 DANIELA BEAR DO V76.10 BREAST CANCER SCREENING 05/19/2012 BEAR PURVI PHILIPA K V76.2 CERVICAL CANCER SCREENING (PAP SMEAR) 05/19/2012 MARIANELA PHILIP DANIELA Rito E888.9 UNSPECIFIED ACCIDENTAL FALL 05/19/2012 BEAR DO DANIELA K V76.10 BREAST CANCER SCREENING 05/19/2012 BEAR DO DANIELA K V76.2 CERVICAL CANCER SCREENING (PAP SMEAR) 05/19/2012 VASQUEZ PAZ MD E888.9 UNSPECIFIED ACCIDENTAL FALL 05/19/2012 VASQUEZ PAZ MD V76.10 BREAST CANCER SCREENING 05/19/2012 VASQUEZ PAZ MD V76.2 CERVICAL CANCER SCREENING (PAP SMEAR) 05/19/2012 PURVI BEAR DOA Rito E888.9 UNSPECIFIED ACCIDENTAL FALL 05/19/2012 PURVI BEAR DOA K V76.10 BREAST CANCER SCREENING 05/19/2012 BEAR PURVI PHILIPA K V76.2 CERVICAL CANCER SCREENING (PAP SMEAR) 05/19/2012 DANIELA BEAR DO E888.9 UNSPECIFIED ACCIDENTAL FALL 05/19/2012 PURVI BEAR DOA K V76.10 BREAST CANCER SCREENING 05/19/2012 PURVI BEAR DOA K V76.2 CERVICAL CANCER SCREENING (PAP SMEAR) 05/19/2012 PURVI BEAR DOA Rito E888.9 UNSPECIFIED ACCIDENTAL FALL 05/19/2012 PURVI BEAR DOA K V76.10 BREAST CANCER SCREENING 05/19/2012 PURVI BEAR DOA K V76.2 CERVICAL CANCER SCREENING (PAP SMEAR) 05/19/2012 WESTON MARINA PA-C E888.9 UNSPECIFIED ACCIDENTAL FALL 05/19/2012 WESTON MARINA PA-C V76.10 BREAST CANCER SCREENING 05/19/2012 WESTON MARINA PA-C V76.2 CERVICAL CANCER SCREENING (PAP SMEAR) 05/19/2012 DANIELA BEAR DO K E888.9 UNSPECIFIED ACCIDENTAL FALL 05/19/2012 PURVI BEAR DOA K V76.10 BREAST CANCER SCREENING 05/19/2012 BEAR DO DANIELA K V76.2 CERVICAL CANCER SCREENING (PAP SMEAR) 05/19/2012 MARIANELA PHILIP DANIELA K E888.9 UNSPECIFIED ACCIDENTAL FALL 05/19/2012 PURVI BEAR DOA K V76.10 BREAST CANCER SCREENING 05/19/2012 BEAR DO, DANIELA K V76.2 CERVICAL CANCER SCREENING (PAP SMEAR) 05/19/2012 BEAR DO, DANIELA K E888.9 UNSPECIFIED ACCIDENTAL FALL 05/19/2012 BEAR DO, DANIELA K V76.10 BREAST CANCER SCREENING 05/19/2012 BEAR DO, DANIELA K V76.2 CERVICAL CANCER SCREENING (PAP SMEAR) 05/19/2012 KATIEE BIOMEDICAL MANAGER ROSA A E888.9 UNSPECIFIED ACCIDENTAL FALL 05/19/2012 KATIEE BIOMEDICAL MANAGER, ROSA A V76.10 BREAST CANCER SCREENING 05/19/2012 RAJOTTE BIOMEDICAL MANAGER, ROSA A V76.2 CERVICAL CANCER SCREENING (PAP SMEAR) 05/19/2012 BEAR DO, DANIELA K E888.9 UNSPECIFIED ACCIDENTAL FALL 05/19/2012 BEAR DO, DANIELA K V76.10 BREAST CANCER SCREENING 05/19/2012 BEAR DO, DANIELA K V76.2 CERVICAL CANCER SCREENING (PAP SMEAR) 05/19/2012 BEAR DO, DANIELA K E888.9 UNSPECIFIED ACCIDENTAL FALL 05/19/2012 BEAR DO DANIELA K V76.10 BREAST CANCER SCREENING 05/19/2012 BEAR DO, DANIELA K V76.2 CERVICAL CANCER SCREENING (PAP SMEAR) 05/19/2012 BEAR DO, DANIELA K E888.9 UNSPECIFIED ACCIDENTAL FALL 05/19/2012 BEAR DO, DANIELA K V76.10 BREAST CANCER SCREENING 05/19/2012 BEAR DO, DANIELA K V76.2 CERVICAL CANCER SCREENING (PAP SMEAR) 05/19/2012 BEAR DO, DANIELA K E888.9 UNSPECIFIED ACCIDENTAL FALL 05/19/2012 BEAR DO, DANIELA K V76.10 BREAST CANCER SCREENING 05/19/2012 BEAR DO, DANIELA K V76.2 CERVICAL CANCER SCREENING (PAP SMEAR) 05/19/2012 BEAR DO, DANIELA K E888.9 UNSPECIFIED ACCIDENTAL FALL 05/19/2012 BEAR DO, DANIELA K V76.10 BREAST CANCER SCREENING 05/19/2012 BEAR DO, DANIELA K V76.2 CERVICAL CANCER SCREENING (PAP SMEAR) 05/19/2012 FROY BIOMEDICAL MANAGER, FLAQUITA S E888.9 UNSPECIFIED ACCIDENTAL FALL 05/19/2012 FROY BIOMEDICAL MANAGER, FLAQUITA S V76.10 BREAST CANCER SCREENING 05/19/2012 FROY BIOMEDICAL MANAGERDARCI JudgeNDA S V76.2 CERVICAL CANCER SCREENING (PAP SMEAR) 05/19/2012 BEAR DO, DANIELA K E888.9 UNSPECIFIED ACCIDENTAL FALL 05/19/2012 BEAR DO, DANIELA K V76.10 BREAST CANCER SCREENING 05/19/2012 BEAR DO, DANIELA K V76.2 CERVICAL CANCER SCREENING (PAP SMEAR) 07/01/2012 BEAR DO, DANIELA K 461.9 SINUSITIS ACUTE 07/01/2012 BEAR DO, DANIELA K 466.0 ACUTE BRONCHITIS 07/01/2012 461.9 SINUSITIS ACUTE 07/01/2012 466.0 ACUTE BRONCHITIS 07/01/2012 461.9 SINUSITIS ACUTE 07/01/2012 466.0 ACUTE BRONCHITIS 07/01/2012 461.9 SINUSITIS ACUTE 07/01/2012 466.0 ACUTE BRONCHITIS 07/01/2012 461.9 SINUSITIS ACUTE 07/01/2012 466.0 ACUTE BRONCHITIS 07/01/2012 461.9 SINUSITIS ACUTE 07/01/2012 466.0 ACUTE BRONCHITIS 07/01/2012 BEAR DO, DANIELA K 461.9 SINUSITIS ACUTE 07/01/2012 BEAR DO, DANIELA K 466.0 ACUTE BRONCHITIS 07/01/2012 BEAR DO, DANIELA K 461.9 SINUSITIS ACUTE 07/01/2012 BEAR DO, DANIELA K 466.0 ACUTE BRONCHITIS 07/01/2012 BEAR DO, DANIELA K 461.9 SINUSITIS ACUTE 07/01/2012 BEAR DO, DANIELA K 466.0 ACUTE BRONCHITIS 07/01/2012 BEAR DO, DANIELA K 461.9 SINUSITIS ACUTE 07/01/2012 BEAR DO, DANIELA K 466.0 ACUTE BRONCHITIS 07/01/2012 BEAR DO, DANIELA K 461.9 SINUSITIS ACUTE 07/01/2012 BEAR DO, DANIELA K 466.0 ACUTE BRONCHITIS 07/01/2012 BEAR DO, DANIELA K 461.9 SINUSITIS ACUTE 07/01/2012 BEAR DO, DANIELA K 466.0 ACUTE BRONCHITIS 07/01/2012 BEAR DO, DANIELA K 461.9 SINUSITIS ACUTE 07/01/2012 BEAR DO, DANIELA K 466.0 ACUTE BRONCHITIS 07/01/2012 BEAR DO, DANIELA K 461.9 SINUSITIS ACUTE 07/01/2012 BEAR DO, DANIELA K 466.0 ACUTE BRONCHITIS 07/01/2012 BEAR DO, DANIELA K 461.9 SINUSITIS ACUTE 07/01/2012 BEAR DO, DANIELA K 466.0 ACUTE BRONCHITIS 07/01/2012 BEAR DO, DANIELA K 461.9 SINUSITIS ACUTE 07/01/2012 BEAR DO, DANIELA K 466.0 ACUTE BRONCHITIS 07/01/2012 BEAR DO, DANIELA K 461.9 SINUSITIS ACUTE 07/01/2012 BEAR DO, DANIELA K 466.0 ACUTE BRONCHITIS 07/01/2012 FROY BIOMEDICAL MANAGER, FLAQUITA S 461.9 SINUSITIS ACUTE 07/01/2012 FROY BIOMEDICAL MANAGER, FLAQUITA S 466.0 ACUTE BRONCHITIS 07/01/2012 BEAR DO, DANIELA K 461.9 SINUSITIS ACUTE 07/01/2012 BEAR DO, DANIELA K 466.0 ACUTE BRONCHITIS 07/01/2012 BEAR DO, DANIELA K 461.9 SINUSITIS ACUTE 07/01/2012 BEAR DO, DANIELA K 466.0 ACUTE BRONCHITIS 07/01/2012 BEAR DO, DANIELA K 461.9 SINUSITIS ACUTE 07/01/2012 BEAR DO, DANIELA K 466.0 ACUTE BRONCHITIS 07/01/2012 BEAR DO, DANIELA K 461.9 SINUSITIS ACUTE 07/01/2012 BEAR DO, DANIELA K 466.0 ACUTE BRONCHITIS 07/01/2012 BEAR DO, DANIELA K 461.9 SINUSITIS ACUTE 07/01/2012 BEAR DO, DANIELA K 466.0 ACUTE BRONCHITIS 07/01/2012 BEAR DO, DANIELA K 461.9 SINUSITIS ACUTE 07/01/2012 BEAR DO, DANIELA K 466.0 ACUTE BRONCHITIS 07/01/2012 BEAR DO, DANIELA K 461.9 SINUSITIS ACUTE 07/01/2012 BEAR DO, DANIELA K 466.0 ACUTE BRONCHITIS 07/01/2012 BEAR DO, DANIELA K 461.9 SINUSITIS ACUTE 07/01/2012 BEAR DO, DANIELA K 466.0 ACUTE BRONCHITIS 07/01/2012 VASQUEZ PAZ MD 461.9 SINUSITIS ACUTE 07/01/2012 VASQUEZ PAZ MD 466.0 ACUTE BRONCHITIS 07/01/2012 BEAR DO, DANIELA K 461.9 SINUSITIS ACUTE 07/01/2012 BEAR DO, DANIELA K 466.0 ACUTE BRONCHITIS 07/01/2012 BEAR DO, DANIELA K 461.9 SINUSITIS ACUTE 07/01/2012 BEAR DO, DANIELA K 466.0 ACUTE BRONCHITIS 07/01/2012 VASQUEZ PAZ MD 461.9 SINUSITIS ACUTE 07/01/2012 VASQUEZ PAZ MD 466.0 ACUTE BRONCHITIS 07/01/2012 BEAR DO, DANIELA K 461.9 SINUSITIS ACUTE 07/01/2012 BEAR DO, DANIELA K 466.0 ACUTE BRONCHITIS 07/01/2012 BEAR DO, DANIELA K 461.9 SINUSITIS ACUTE 07/01/2012 BEAR DO, DANIELA K 466.0 ACUTE BRONCHITIS 07/01/2012 BEAR DO, DANIELA K 461.9 SINUSITIS ACUTE 07/01/2012 BEAR DO, DANIELA K 466.0 ACUTE BRONCHITIS 07/01/2012 SALAS PA-C, WESTON M 461.9 SINUSITIS ACUTE 07/01/2012 SALAS BARROSO, WESTON M 466.0 ACUTE BRONCHITIS 07/01/2012 BEAR DO, DANIELA K 461.9 SINUSITIS ACUTE 07/01/2012 BEAR DO, DANIELA K 466.0 ACUTE BRONCHITIS 07/01/2012 BEAR DO, DANIELA K 461.9 SINUSITIS ACUTE 07/01/2012 BEAR DO, DANIELA K 466.0 ACUTE BRONCHITIS 07/01/2012 BEAR DO, DANIELA K 461.9 SINUSITIS ACUTE 07/01/2012 BEAR DO, DANIELA K 466.0 ACUTE BRONCHITIS 07/01/2012 RAJMARANDAE BIOMEDICAL MANAGER, ROSA A 461.9 SINUSITIS ACUTE 07/01/2012 RAJOTTE BIOMEDICAL MANAGER, ROSA A 466.0 ACUTE BRONCHITIS 07/01/2012 BEAR DO, DANIELA K 461.9 SINUSITIS ACUTE 07/01/2012 BEAR DO, DANIELA K 466.0 ACUTE BRONCHITIS 07/01/2012 BEAR DO, DANIELA K 461.9 SINUSITIS ACUTE 07/01/2012 BEAR DO, DANIELA K 466.0 ACUTE BRONCHITIS 07/01/2012 BEAR DO, DANIELA K 461.9 SINUSITIS ACUTE 07/01/2012 BEAR DO, DANIELA K 466.0 ACUTE BRONCHITIS 07/01/2012 BEAR DO, DANIELA K 461.9 SINUSITIS ACUTE 07/01/2012 BEAR DO, DANIELA K 466.0 ACUTE BRONCHITIS 07/01/2012 BEAR DO, DANIELA K 461.9 SINUSITIS ACUTE 07/01/2012 BEAR DO, DANIELA K 466.0 ACUTE BRONCHITIS 07/01/2012 FROY BIOMEDICAL MANAGER, FLAQUITA S 461.9 SINUSITIS ACUTE 07/01/2012 FROY FLORENCE, FLAQUITA S 466.0 ACUTE BRONCHITIS 07/01/2012 BEAR DO, DANIELA K 461.9 SINUSITIS ACUTE 07/01/2012 BEAR DO, DANIELA K 466.0 ACUTE BRONCHITIS 09/30/2012 276.51 DEHYDRATION 09/30/2012 356.9 UNSPECIFIED IDIOPATHIC PERIPHERAL NEUROPATHY 09/30/2012 791.0 PROTEINURIA 09/30/2012 E928.2 EXPOSURE TO VIBRATION 09/30/2012 276.51 DEHYDRATION 09/30/2012 356.9 UNSPECIFIED IDIOPATHIC PERIPHERAL NEUROPATHY 09/30/2012 791.0 PROTEINURIA 09/30/2012 E928.2 EXPOSURE TO VIBRATION 09/30/2012 276.51 DEHYDRATION 09/30/2012 356.9 UNSPECIFIED IDIOPATHIC PERIPHERAL NEUROPATHY 09/30/2012 791.0 PROTEINURIA 09/30/2012 E928.2 EXPOSURE TO VIBRATION 09/30/2012 276.51 DEHYDRATION 09/30/2012 356.9 UNSPECIFIED IDIOPATHIC PERIPHERAL NEUROPATHY 09/30/2012 791.0 PROTEINURIA 09/30/2012 E928.2 EXPOSURE TO VIBRATION 09/30/2012 276.51 DEHYDRATION 09/30/2012 356.9 UNSPECIFIED IDIOPATHIC PERIPHERAL NEUROPATHY 09/30/2012 791.0 PROTEINURIA 09/30/2012 E928.2 EXPOSURE TO VIBRATION 09/30/2012 BEAR DO, DANIELA K 276.51 DEHYDRATION 09/30/2012 BEAR DO, DANIELA K 356.9 UNSPECIFIED IDIOPATHIC PERIPHERAL NEUROPATHY 09/30/2012 BEAR DO, DANIELA K 791.0 PROTEINURIA 09/30/2012 BEAR DO, DANIELA K E928.2 EXPOSURE TO VIBRATION 09/30/2012 BEAR DO, DANIELA K 276.51 DEHYDRATION 09/30/2012 BEAR DO, DANIELA K 356.9 UNSPECIFIED IDIOPATHIC PERIPHERAL NEUROPATHY 09/30/2012 BEAR DO, DANIELA K 791.0 PROTEINURIA 09/30/2012 BEAR DO, DANIELA K E928.2 EXPOSURE TO VIBRATION 09/30/2012 BEAR DO, DANIELA K 276.51 DEHYDRATION 09/30/2012 BEAR DO, DANIELA K 356.9 UNSPECIFIED IDIOPATHIC PERIPHERAL NEUROPATHY 09/30/2012 BEAR DO, DANIELA K 791.0 PROTEINURIA 09/30/2012 BEAR DO, DANIELA K E928.2 EXPOSURE TO VIBRATION 09/30/2012 BEAR DO, DANIELA K 276.51 DEHYDRATION 09/30/2012 BEAR DO, DANIELA K 356.9 UNSPECIFIED IDIOPATHIC PERIPHERAL NEUROPATHY 09/30/2012 BEAR DO, DANIELA K 791.0 PROTEINURIA 09/30/2012 BEAR DO, DANIELA K E928.2 EXPOSURE TO VIBRATION 09/30/2012 BEAR DO, DANIELA K 276.51 DEHYDRATION 09/30/2012 BEAR DO, DANIELA K 356.9 UNSPECIFIED IDIOPATHIC PERIPHERAL NEUROPATHY 09/30/2012 BEAR DO, DANIELA K 791.0 PROTEINURIA 09/30/2012 BEAR DO, DANIELA K E928.2 EXPOSURE TO VIBRATION 09/30/2012 BEAR DO, DANIELA K 276.51 DEHYDRATION 09/30/2012 BEAR DO, DANIELA K 356.9 UNSPECIFIED IDIOPATHIC PERIPHERAL NEUROPATHY 09/30/2012 BEAR DO, DANIELA K 791.0 PROTEINURIA 09/30/2012 BEAR DO, DANIELA K E928.2 EXPOSURE TO VIBRATION 09/30/2012 BEAR DO, DANIELA K 276.51 DEHYDRATION 09/30/2012 BEAR DO, DANIELA K 356.9 UNSPECIFIED IDIOPATHIC PERIPHERAL NEUROPATHY 09/30/2012 BEAR DO, DANIELA K 791.0 PROTEINURIA 09/30/2012 BEAR DO, DANIELA K E928.2 EXPOSURE TO VIBRATION 09/30/2012 BEAR DO, DANIELA K 276.51 DEHYDRATION 09/30/2012 BEAR DO, DANIELA K 356.9 UNSPECIFIED IDIOPATHIC PERIPHERAL NEUROPATHY 09/30/2012 BEAR DO, DANIELA K 791.0 PROTEINURIA 09/30/2012 BEAR DO, DANIELA K E928.2 EXPOSURE TO VIBRATION 09/30/2012 BEAR DO, DANIELA K 276.51 DEHYDRATION 09/30/2012 BEAR DO, DANIELA K 356.9 UNSPECIFIED IDIOPATHIC PERIPHERAL NEUROPATHY 09/30/2012 BEAR DO, DANIELA K 791.0 PROTEINURIA 09/30/2012 BEAR DO, DANIELA K E928.2 EXPOSURE TO VIBRATION 09/30/2012 BEAR DO, DANIELA K 276.51 DEHYDRATION 09/30/2012 BEAR DO, DANIELA K 356.9 UNSPECIFIED IDIOPATHIC PERIPHERAL NEUROPATHY 09/30/2012 BEAR DO, DANIELA K 791.0 PROTEINURIA 09/30/2012 BEAR DO, DANIELA K E928.2 EXPOSURE TO VIBRATION 09/30/2012 BEAR DO, DANIELA K 276.51 DEHYDRATION 09/30/2012 BEAR DO, DANIELA K 356.9 UNSPECIFIED IDIOPATHIC PERIPHERAL NEUROPATHY 09/30/2012 BEAR DO, DANIELA K 791.0 PROTEINURIA 09/30/2012 BEAR DO, DANIELA K E928.2 EXPOSURE TO VIBRATION 09/30/2012 FROY BIOMEDICAL MANAGER, FLAQUITA S 276.51 DEHYDRATION 09/30/2012 FROY BIOMEDICAL MANAGER, FLAQUITA S 356.9 UNSPECIFIED IDIOPATHIC PERIPHERAL NEUROPATHY 09/30/2012 FROY BIOMEDICAL MANAGER, FLAQUITA S 791.0 PROTEINURIA 09/30/2012 FROY BIOMEDICAL MANAGER, FLAQUITA S E928.2 EXPOSURE TO VIBRATION 09/30/2012 BEAR DO, DANIELA K 276.51 DEHYDRATION 09/30/2012 BEAR DO, DANIELA K 356.9 UNSPECIFIED IDIOPATHIC PERIPHERAL NEUROPATHY 09/30/2012 BEAR DO, DANIELA K 791.0 PROTEINURIA 09/30/2012 BEAR DO, DANIELA K E928.2 EXPOSURE TO VIBRATION 09/30/2012 BEAR DO, DANIELA K 276.51 DEHYDRATION 09/30/2012 BEAR DO, DANIELA K 356.9 UNSPECIFIED IDIOPATHIC PERIPHERAL NEUROPATHY 09/30/2012 BEAR DO, DANIELA K 791.0 PROTEINURIA 09/30/2012 BEAR DO, DANIELA K E928.2 EXPOSURE TO VIBRATION 09/30/2012 BEAR DO, DANIELA K 276.51 DEHYDRATION 09/30/2012 BEAR DO, DANIELA K 356.9 UNSPECIFIED IDIOPATHIC PERIPHERAL NEUROPATHY 09/30/2012 BEAR DO, DANIELA K 791.0 PROTEINURIA 09/30/2012 BEAR DO, DANIELA K E928.2 EXPOSURE TO VIBRATION 09/30/2012 BEAR DO, DANIELA K 276.51 DEHYDRATION 09/30/2012 BEAR DO, DANIELA K 356.9 UNSPECIFIED IDIOPATHIC PERIPHERAL NEUROPATHY 09/30/2012 BEAR DO, DANIELA K 791.0 PROTEINURIA 09/30/2012 BEAR DO, DANIELA K E928.2 EXPOSURE TO VIBRATION 09/30/2012 BEAR DO, DANIELA K 276.51 DEHYDRATION 09/30/2012 BEAR DO, DANIELA K 356.9 UNSPECIFIED IDIOPATHIC PERIPHERAL NEUROPATHY 09/30/2012 BEAR DO, DANIELA K 791.0 PROTEINURIA 09/30/2012 BEAR DO, DANIELA K E928.2 EXPOSURE TO VIBRATION 09/30/2012 BEAR DO, DANIELA K 276.51 DEHYDRATION 09/30/2012 BEAR DO, DANIELA K 356.9 UNSPECIFIED IDIOPATHIC PERIPHERAL NEUROPATHY 09/30/2012 BEAR DO, DANIELA K 791.0 PROTEINURIA 09/30/2012 BEAR DO, DANIELA K E928.2 EXPOSURE TO VIBRATION 09/30/2012 BEAR DO, DANIELA K 276.51 DEHYDRATION 09/30/2012 BEAR DO, DANIELA K 356.9 UNSPECIFIED IDIOPATHIC PERIPHERAL NEUROPATHY 09/30/2012 BEAR DO, DANIELA K 791.0 PROTEINURIA 09/30/2012 BEAR DO, DANIELA K E928.2 EXPOSURE TO VIBRATION 09/30/2012 BEAR DO, DANIELA K 276.51 DEHYDRATION 09/30/2012 BEAR DO, DANIELA K 356.9 UNSPECIFIED IDIOPATHIC PERIPHERAL NEUROPATHY 09/30/2012 BEAR DO, DANIELA K 791.0 PROTEINURIA 09/30/2012 BEAR DO, DANIELA K E928.2 EXPOSURE TO VIBRATION 09/30/2012 VASQUEZ PAZ MD.51 DEHYDRATION 09/30/2012 VASQUEZ PAZ MD 356.9 UNSPECIFIED IDIOPATHIC PERIPHERAL NEUROPATHY 09/30/2012 VASQUEZ PAZ MD 791.0 PROTEINURIA 09/30/2012 VASQUEZ PAZ MD E928.2 EXPOSURE TO VIBRATION 09/30/2012 BEAR DO, DANIELA K 276.51 DEHYDRATION 09/30/2012 BEAR DO, DANIELA K 356.9 UNSPECIFIED IDIOPATHIC PERIPHERAL NEUROPATHY 09/30/2012 BEAR DO, DANIELA K 791.0 PROTEINURIA 09/30/2012 EBAR DO, DANIELA K E928.2 EXPOSURE TO VIBRATION 09/30/2012 BEAR DO, DANIELA K 276.51 DEHYDRATION 09/30/2012 BEAR DO, DANIELA K 356.9 UNSPECIFIED IDIOPATHIC PERIPHERAL NEUROPATHY 09/30/2012 BEAR DO, DANIELA K 791.0 PROTEINURIA 09/30/2012 BEAR DO, DANIELA K E928.2 EXPOSURE TO VIBRATION 09/30/2012 VASQUEZ PAZ MD 276.51 DEHYDRATION 09/30/2012 VASQUEZ PAZ MD 356.9 UNSPECIFIED IDIOPATHIC PERIPHERAL NEUROPATHY 09/30/2012 VASQUEZ PAZ MD 791.0 PROTEINURIA 09/30/2012 VASQUEZ PAZ MD E928.2 EXPOSURE TO VIBRATION 09/30/2012 BEAR DO, DANIELA K 276.51 DEHYDRATION 09/30/2012 BEAR DO, DANIELA K 356.9 UNSPECIFIED IDIOPATHIC PERIPHERAL NEUROPATHY 09/30/2012 BEAR DO, DANIELA K 791.0 PROTEINURIA 09/30/2012 BEAR DO, DANIELA K E928.2 EXPOSURE TO VIBRATION 09/30/2012 BEAR DO, DANIELA K 276.51 DEHYDRATION 09/30/2012 BEAR DO, DANIELA K 356.9 UNSPECIFIED IDIOPATHIC PERIPHERAL NEUROPATHY 09/30/2012 BEAR DO, DANIELA K 791.0 PROTEINURIA 09/30/2012 BEAR DO, DANIELA K E928.2 EXPOSURE TO VIBRATION 09/30/2012 BEAR DO, DANIELA K 276.51 DEHYDRATION 09/30/2012 BEAR DO, DANIELA K 356.9 UNSPECIFIED IDIOPATHIC PERIPHERAL NEUROPATHY 09/30/2012 BEAR DO, DANIELA K 791.0 PROTEINURIA 09/30/2012 BEAR DO, DANIELA K E928.2 EXPOSURE TO VIBRATION 09/30/2012 MARINA PA-C, WESTON M 276.51 DEHYDRATION 09/30/2012 MARINA PA-C, WESTON M 356.9 UNSPECIFIED IDIOPATHIC PERIPHERAL NEUROPATHY 09/30/2012 MARINA PA-C, WESTON M 791.0 PROTEINURIA 09/30/2012 MARINA PA-C, WESTON M E928.2 EXPOSURE TO VIBRATION 09/30/2012 BEAR DO, DANIELA K 276.51 DEHYDRATION 09/30/2012 BEAR DO, DANIELA K 356.9 UNSPECIFIED IDIOPATHIC PERIPHERAL NEUROPATHY 09/30/2012 BEAR DO, DANIELA K 791.0 PROTEINURIA 09/30/2012 BEAR DO, DANIELA K E928.2 EXPOSURE TO VIBRATION 09/30/2012 BEAR DO, DANIELA K 276.51 DEHYDRATION 09/30/2012 BEAR DO, DANIELA K 356.9 UNSPECIFIED IDIOPATHIC PERIPHERAL NEUROPATHY 09/30/2012 BEAR DO, DANIELA K 791.0 PROTEINURIA 09/30/2012 BEAR DO, DANIELA K E928.2 EXPOSURE TO VIBRATION 09/30/2012 BEAR DO, DANIELA K 276.51 DEHYDRATION 09/30/2012 BAER DO, DANIELA K 356.9 UNSPECIFIED IDIOPATHIC PERIPHERAL NEUROPATHY 09/30/2012 BEAR DO, DANIELA K 791.0 PROTEINURIA 09/30/2012 BEAR DO, DANIELA K E928.2 EXPOSURE TO VIBRATION 09/30/2012 RAJMARANDAE BIOMEDICAL MANAGER, ROSA A 276.51 DEHYDRATION 09/30/2012 RAJOTTE BIOMEDICAL MANAGER, ROSA A 356.9 UNSPECIFIED IDIOPATHIC PERIPHERAL NEUROPATHY 09/30/2012 RAJOTTE BIOMEDICAL MANAGER, ROSA A 791.0 PROTEINURIA 09/30/2012 RAJOTTE BIOMEDICAL MANAGER, ROSA A E928.2 EXPOSURE TO VIBRATION 09/30/2012 BEAR DO, DANIELA K 276.51 DEHYDRATION 09/30/2012 BEAR DO, DANEILA K 356.9 UNSPECIFIED IDIOPATHIC PERIPHERAL NEUROPATHY 09/30/2012 BEAR DO, DANIELA K 791.0 PROTEINURIA 09/30/2012 BEAR DO, DANIELA K E928.2 EXPOSURE TO VIBRATION 09/30/2012 BEAR DO, DANIELA K 276.51 DEHYDRATION 09/30/2012 BEAR DO, DANIELA K 356.9 UNSPECIFIED IDIOPATHIC PERIPHERAL NEUROPATHY 09/30/2012 BEAR DO, DANIELA K 791.0 PROTEINURIA 09/30/2012 BEAR DO, DANIELA K E928.2 EXPOSURE TO VIBRATION 09/30/2012 BEAR DO, DANIELA K 276.51 DEHYDRATION 09/30/2012 BEAR DO, DANIELA K 356.9 UNSPECIFIED IDIOPATHIC PERIPHERAL NEUROPATHY 09/30/2012 BEAR DO, DANIELA K 791.0 PROTEINURIA 09/30/2012 BEAR DO, DANIELA K E928.2 EXPOSURE TO VIBRATION 09/30/2012 BEAR DO, DANIELA K 276.51 DEHYDRATION 09/30/2012 BEAR DO, DANIELA K 356.9 UNSPECIFIED IDIOPATHIC PERIPHERAL NEUROPATHY 09/30/2012 BEAR DO, DANIELA K 791.0 PROTEINURIA 09/30/2012 BEAR DO, DANIELA K E928.2 EXPOSURE TO VIBRATION 09/30/2012 BEAR DO, DANIELA K 276.51 DEHYDRATION 09/30/2012 BEAR DO, DANIELA K 356.9 UNSPECIFIED IDIOPATHIC PERIPHERAL NEUROPATHY 09/30/2012 BEAR DO, DANIELA K 791.0 PROTEINURIA 09/30/2012 BEAR DO, DANIELA K E928.2 EXPOSURE TO VIBRATION 09/30/2012 FROY BIOMEDICAL MANAGER, FLAQUITA S 276.51 DEHYDRATION 09/30/2012 FROY BIOMEDICAL MANAGER, FLAQUITA S 356.9 UNSPECIFIED IDIOPATHIC PERIPHERAL NEUROPATHY 09/30/2012 FROY BIOMEDICAL MANAGER, FLAQUITA S 791.0 PROTEINURIA 09/30/2012 FROY BIOMEDICAL MANAGER, FLAQUITA S E928.2 EXPOSURE TO VIBRATION 09/30/2012 BEAR DO, DANIELA K 276.51 DEHYDRATION 09/30/2012 BEAR DO, DANIELA K 356.9 UNSPECIFIED IDIOPATHIC PERIPHERAL NEUROPATHY 09/30/2012 BEAR DO, DANIELA K 791.0 PROTEINURIA 09/30/2012 BEAR DO, DANIELA K E928.2 EXPOSURE TO VIBRATION 10/16/2012 110.1 ONYCHOMYCOSIS 10/16/2012 735.0 HALLUX VALGUS (ACQUIRED) 10/16/2012 110.1 ONYCHOMYCOSIS 10/16/2012 735.0 HALLUX VALGUS (ACQUIRED) 10/16/2012 110.1 ONYCHOMYCOSIS 10/16/2012 735.0 HALLUX VALGUS (ACQUIRED) 10/16/2012 110.1 ONYCHOMYCOSIS 10/16/2012 735.0 HALLUX VALGUS (ACQUIRED) 10/16/2012 BEAR DO, DANIELA K 110.1 ONYCHOMYCOSIS 10/16/2012 BEAR DO, DANIELA K 735.0 HALLUX VALGUS (ACQUIRED) 10/16/2012 BEAR DO, DANIELA K 110.1 ONYCHOMYCOSIS 10/16/2012 BEAR DO, DANIELA K 735.0 HALLUX VALGUS (ACQUIRED) 10/16/2012 BEAR DO, DANIELA K 110.1 ONYCHOMYCOSIS 10/16/2012 BEAR DO, DANIELA K 735.0 HALLUX VALGUS (ACQUIRED) 10/16/2012 BEAR DO, DANIELA K 110.1 ONYCHOMYCOSIS 10/16/2012 BEAR DO, DANIELA K 735.0 HALLUX VALGUS (ACQUIRED) 10/16/2012 BEAR DO, DANIELA K 110.1 ONYCHOMYCOSIS 10/16/2012 BEAR DO, DANIELA K 735.0 HALLUX VALGUS (ACQUIRED) 10/16/2012 BEAR DO, DANIELA K 110.1 ONYCHOMYCOSIS 10/16/2012 BEAR DO, DANIELA K 735.0 HALLUX VALGUS (ACQUIRED) 10/16/2012 BEAR DO, DANIELA K 110.1 ONYCHOMYCOSIS 10/16/2012 BEAR DO, DANIELA K 735.0 HALLUX VALGUS (ACQUIRED) 10/16/2012 BEAR DO, DANIELA K 110.1 ONYCHOMYCOSIS 10/16/2012 BEAR DO, DANIELA K 735.0 HALLUX VALGUS (ACQUIRED) 10/16/2012 BEAR DO, DANIELA K 110.1 ONYCHOMYCOSIS 10/16/2012 BEAR DO, DANIELA K 735.0 HALLUX VALGUS (ACQUIRED) 10/16/2012 BEAR DO, DANIELA K 110.1 ONYCHOMYCOSIS 10/16/2012 BEAR DO, DANIELA K 735.0 HALLUX VALGUS (ACQUIRED) 10/16/2012 BEAR DO, DANIELA K 110.1 ONYCHOMYCOSIS 10/16/2012 BEAR DO, DANIELA K 735.0 HALLUX VALGUS (ACQUIRED) 10/16/2012 FROY BIOMEDICAL MANAGER, FLAQUITA S 110.1 ONYCHOMYCOSIS 10/16/2012 FROY BIOMEDICAL MANAGER, FLAQUITA S 735.0 HALLUX VALGUS (ACQUIRED) 10/16/2012 BEAR DO, DANIELA K 110.1 ONYCHOMYCOSIS 10/16/2012 BEAR DO, DANIELA K 735.0 HALLUX VALGUS (ACQUIRED) 10/16/2012 BEAR DO, DANIELA K 110.1 ONYCHOMYCOSIS 10/16/2012 BEAR DO, DANIELA K 735.0 HALLUX VALGUS (ACQUIRED) 10/16/2012 BEAR DO, DANIELA K 110.1 ONYCHOMYCOSIS 10/16/2012 BEAR DO, DANIELA K 735.0 HALLUX VALGUS (ACQUIRED) 10/16/2012 BEAR DO, DANIELA K 110.1 ONYCHOMYCOSIS 10/16/2012 BEAR DO, DANIELA K 735.0 HALLUX VALGUS (ACQUIRED) 10/16/2012 BEAR DO, DANIELA K 110.1 ONYCHOMYCOSIS 10/16/2012 BEAR DO, DANIELA K 735.0 HALLUX VALGUS (ACQUIRED) 10/16/2012 BEAR DO, DANIELA K 110.1 ONYCHOMYCOSIS 10/16/2012 BEAR DO, DANIELA K 735.0 HALLUX VALGUS (ACQUIRED) 10/16/2012 BEAR DO, DANIELA K 110.1 ONYCHOMYCOSIS 10/16/2012 BEAR DO, DANIELA K 735.0 HALLUX VALGUS (ACQUIRED) 10/16/2012 BEAR DO, DANIELA K 110.1 ONYCHOMYCOSIS 10/16/2012 BEAR DO, DANIELA K 735.0 HALLUX VALGUS (ACQUIRED) 10/16/2012 VASQUEZ PAZ MD 110.1 ONYCHOMYCOSIS 10/16/2012 VASQUEZ PAZ MD 735.0 HALLUX VALGUS (ACQUIRED) 10/16/2012 BEAR DO, DANIELA K 110.1 ONYCHOMYCOSIS 10/16/2012 BEAR DO, DANIELA K 735.0 HALLUX VALGUS (ACQUIRED) 10/16/2012 BEAR DO, DANIELA K 110.1 ONYCHOMYCOSIS 10/16/2012 BEAR DO, DANIELA K 735.0 HALLUX VALGUS (ACQUIRED) 10/16/2012 VASQUEZ PAZ MD 110.1 ONYCHOMYCOSIS 10/16/2012 VASQUEZ PAZ MD 735.0 HALLUX VALGUS (ACQUIRED) 10/16/2012 BEAR DO, DANIELA K 110.1 ONYCHOMYCOSIS 10/16/2012 BEAR DO, DANIELA K 735.0 HALLUX VALGUS (ACQUIRED) 10/16/2012 BEAR DO, DANIELA K 110.1 ONYCHOMYCOSIS 10/16/2012 BEAR DO, DANIELA K 735.0 HALLUX VALGUS (ACQUIRED) 10/16/2012 BEAR DO, DANIELA K 110.1 ONYCHOMYCOSIS 10/16/2012 BEAR DO, DANIELA K 735.0 HALLUX VALGUS (ACQUIRED) 10/16/2012 SALAS BARROSO, WESTON Walton 110.1 ONYCHOMYCOSIS 10/16/2012 WESTON MARINA PA-C 735.0 HALLUX VALGUS (ACQUIRED) 10/16/2012 BEAR DO, DANIELA K 110.1 ONYCHOMYCOSIS 10/16/2012 BEAR DO, DANIELA K 735.0 HALLUX VALGUS (ACQUIRED) 10/16/2012 BEAR DO, DANIELA K 110.1 ONYCHOMYCOSIS 10/16/2012 BEAR DO, DANIELA K 735.0 HALLUX VALGUS (ACQUIRED) 10/16/2012 BEAR DO, DANIELA K 110.1 ONYCHOMYCOSIS 10/16/2012 BEAR DO, DANIELA K 735.0 HALLUX VALGUS (ACQUIRED) 10/16/2012 RAJMARANDAE BIOMEDICAL MANAGER, ROSA A 110.1 ONYCHOMYCOSIS 10/16/2012 RAJOTTE BIOMEDICAL MANAGER, ROSA A 735.0 HALLUX VALGUS (ACQUIRED) 10/16/2012 BEAR DO, DANIELA K 110.1 ONYCHOMYCOSIS 10/16/2012 BEAR DO, DANIELA K 735.0 HALLUX VALGUS (ACQUIRED) 10/16/2012 BEAR DO, DANIELA K 110.1 ONYCHOMYCOSIS 10/16/2012 BEAR DO, DANIELA K 735.0 HALLUX VALGUS (ACQUIRED) 10/16/2012 BEAR DO, DANIELA K 110.1 ONYCHOMYCOSIS 10/16/2012 BEAR DO, DANIELA K 735.0 HALLUX VALGUS (ACQUIRED) 10/16/2012 BEAR DO, DANIELA K 110.1 ONYCHOMYCOSIS 10/16/2012 BEAR DO, DANIELA K 735.0 HALLUX VALGUS (ACQUIRED) 10/16/2012 BEAR DO, DANIELA K 110.1 ONYCHOMYCOSIS 10/16/2012 BEAR DO, DANIELA K 735.0 HALLUX VALGUS (ACQUIRED) 10/16/2012 FROY BIOMEDICAL MANAGER, FLAQUITA S 110.1 ONYCHOMYCOSIS 10/16/2012 FROY BIOMEDICAL MANAGER, FLAQUITA S 735.0 HALLUX VALGUS (ACQUIRED) 10/16/2012 BEAR DO, DANIELA K 110.1 ONYCHOMYCOSIS 10/16/2012 BEAR DO, DANIELA K 735.0 HALLUX VALGUS (ACQUIRED) 10/20/2012 599.0 URINARY TRACT INFECTION SITE NOT SPECIFIED 10/20/2012 788.41 URINARY FREQUENCY 10/20/2012 599.0 URINARY TRACT INFECTION SITE NOT SPECIFIED 10/20/2012 788.41 URINARY FREQUENCY 10/20/2012 599.0 URINARY TRACT INFECTION SITE NOT SPECIFIED 10/20/2012 788.41 URINARY FREQUENCY 10/20/2012 BEAR DO, DANIELA K 599.0 URINARY TRACT INFECTION SITE NOT SPECIFIED 10/20/2012 BEAR DO, DANIELA K 788.41 URINARY FREQUENCY 10/20/2012 BEAR DO, DANIELA K 599.0 URINARY TRACT INFECTION SITE NOT SPECIFIED 10/20/2012 BEAR DO, DANIELA K 788.41 URINARY FREQUENCY 10/20/2012 BEAR DO, DANIELA K 599.0 URINARY TRACT INFECTION SITE NOT SPECIFIED 10/20/2012 BEAR DO, DANIELA K 788.41 URINARY FREQUENCY 10/20/2012 BEAR DO, DANIELA K 599.0 URINARY TRACT INFECTION SITE NOT SPECIFIED 10/20/2012 BEAR DO, DANIELA K 788.41 URINARY FREQUENCY 10/20/2012 BEAR DO, DANIELA K 599.0 URINARY TRACT INFECTION SITE NOT SPECIFIED 10/20/2012 BEAR DO, DANIELA K 788.41 URINARY FREQUENCY 10/20/2012 BEAR DO, DANIELA K 599.0 URINARY TRACT INFECTION SITE NOT SPECIFIED 10/20/2012 BEAR DO, DANIELA K 788.41 URINARY FREQUENCY 10/20/2012 BEAR DO, DANIELA K 599.0 URINARY TRACT INFECTION SITE NOT SPECIFIED 10/20/2012 BEAR DO, DANIELA K 788.41 URINARY FREQUENCY 10/20/2012 BEAR DO, DANIELA K 599.0 URINARY TRACT INFECTION SITE NOT SPECIFIED 10/20/2012 BEAR DO, DANIELA K 788.41 URINARY FREQUENCY 10/20/2012 BEAR DO, DANIELA K 599.0 URINARY TRACT INFECTION SITE NOT SPECIFIED 10/20/2012 BEAR DO, DANIELA K 788.41 URINARY FREQUENCY 10/20/2012 BEAR DO, DANIELA K 599.0 URINARY TRACT INFECTION SITE NOT SPECIFIED 10/20/2012 BEAR DO, DANIELA K 788.41 URINARY FREQUENCY 10/20/2012 BEAR DO, DANIELA K 599.0 URINARY TRACT INFECTION SITE NOT SPECIFIED 10/20/2012 BEAR DO, DANIELA K 788.41 URINARY FREQUENCY 10/20/2012 FROY BIOMEDICAL MANAGER FLAQUITA S 599.0 URINARY TRACT INFECTION SITE NOT SPECIFIED 10/20/2012 FROY BIOMEDICAL MANAGER FLAQUITA S 788.41 URINARY FREQUENCY 10/20/2012 BEAR DO, DANIELA K 599.0 URINARY TRACT INFECTION SITE NOT SPECIFIED 10/20/2012 BEAR DO, DANIELA K 788.41 URINARY FREQUENCY 10/20/2012 BEAR DO, DANIELA K 599.0 URINARY TRACT INFECTION SITE NOT SPECIFIED 10/20/2012 BEAR DO, DANIELA K 788.41 URINARY FREQUENCY 10/20/2012 BEAR DO, DANIELA K 599.0 URINARY TRACT INFECTION SITE NOT SPECIFIED 10/20/2012 BEAR DO, DANIELA K 788.41 URINARY FREQUENCY 10/20/2012 BEAR DO, DANIELA K 599.0 URINARY TRACT INFECTION SITE NOT SPECIFIED 10/20/2012 BEAR DO, DANIELA K 788.41 URINARY FREQUENCY 10/20/2012 BEAR DO, DANIELA K 599.0 URINARY TRACT INFECTION SITE NOT SPECIFIED 10/20/2012 BEAR DO, DANIELA K 788.41 URINARY FREQUENCY 10/20/2012 BEAR DO, DANIELA K 599.0 URINARY TRACT INFECTION SITE NOT SPECIFIED 10/20/2012 BEAR DO, DANIELA K 788.41 URINARY FREQUENCY 10/20/2012 BEAR DO, DANIELA K 599.0 URINARY TRACT INFECTION SITE NOT SPECIFIED 10/20/2012 BEAR DO, DANIELA K 788.41 URINARY FREQUENCY 10/20/2012 BEAR DO, DANIELA K 599.0 URINARY TRACT INFECTION SITE NOT SPECIFIED 10/20/2012 BEAR DO, DANIELA K 788.41 URINARY FREQUENCY 10/20/2012 VASQUEZ PAZ MD 599.0 URINARY TRACT INFECTION SITE NOT SPECIFIED 10/20/2012 VASQUEZ PAZ MD 788.41 URINARY FREQUENCY 10/20/2012 BEAR DO, DANIELA K 599.0 URINARY TRACT INFECTION SITE NOT SPECIFIED 10/20/2012 BEAR DO, DANIELA K 788.41 URINARY FREQUENCY 10/20/2012 BEAR DO, DANIELA K 599.0 URINARY TRACT INFECTION SITE NOT SPECIFIED 10/20/2012 BEAR DO, DANIELA K 788.41 URINARY FREQUENCY 10/20/2012 VASQUEZ PAZ MD 599.0 URINARY TRACT INFECTION SITE NOT SPECIFIED 10/20/2012 VASQUEZ PAZ MD 788.41 URINARY FREQUENCY 10/20/2012 BEAR DO, DANIELA K 599.0 URINARY TRACT INFECTION SITE NOT SPECIFIED 10/20/2012 BEAR DO, DANIELA K 788.41 URINARY FREQUENCY 10/20/2012 BEAR DO, DANIELA K 599.0 URINARY TRACT INFECTION SITE NOT SPECIFIED 10/20/2012 BEAR DO, DANIELA K 788.41 URINARY FREQUENCY 10/20/2012 BEAR DO, DANIELA K 599.0 URINARY TRACT INFECTION SITE NOT SPECIFIED 10/20/2012 BEAR DO, DANIELA K 788.41 URINARY FREQUENCY 10/20/2012 WESTON MARINA PA-C 599.0 URINARY TRACT INFECTION SITE NOT SPECIFIED 10/20/2012 WESTON MARINA PA-C 788.41 URINARY FREQUENCY 10/20/2012 BEAR DO, DANIELA K 599.0 URINARY TRACT INFECTION SITE NOT SPECIFIED 10/20/2012 BEAR DO, DANIELA K 788.41 URINARY FREQUENCY 10/20/2012 BEAR DO, DANIELA K 599.0 URINARY TRACT INFECTION SITE NOT SPECIFIED 10/20/2012 BEAR DO, DANIELA K 788.41 URINARY FREQUENCY 10/20/2012 BEAR DO, DANIELA K 599.0 URINARY TRACT INFECTION SITE NOT SPECIFIED 10/20/2012 BEAR DO, DANIELA K 788.41 URINARY FREQUENCY 10/20/2012 SAM RIZO APRNYL A 599.0 URINARY TRACT INFECTION SITE NOT SPECIFIED 10/20/2012 DARRIUS FLORENCE ROSA A 788.41 URINARY FREQUENCY 10/20/2012 BEAR DO, DANIELA K 599.0 URINARY TRACT INFECTION SITE NOT SPECIFIED 10/20/2012 BEAR DO, DANIELA K 788.41 URINARY FREQUENCY 10/20/2012 BEAR DO, DANIELA K 599.0 URINARY TRACT INFECTION SITE NOT SPECIFIED 10/20/2012 BEAR DO, DANIELA K 788.41 URINARY FREQUENCY 10/20/2012 BEAR DO, DANIELA K 599.0 URINARY TRACT INFECTION SITE NOT SPECIFIED 10/20/2012 BEAR DO, DANIELA K 788.41 URINARY FREQUENCY 10/20/2012 BEAR DO, DANIELA K 599.0 URINARY TRACT INFECTION SITE NOT SPECIFIED 10/20/2012 BEAR DO, DANIELA K 788.41 URINARY FREQUENCY 10/20/2012 BEAR DO, DANIELA K 599.0 URINARY TRACT INFECTION SITE NOT SPECIFIED 10/20/2012 BEAR DO, DANIELA K 788.41 URINARY FREQUENCY 10/20/2012 FROY BIOMEDICAL MANAGER, FLAQUITA S 599.0 URINARY TRACT INFECTION SITE NOT SPECIFIED 10/20/2012 FROY BIOMEDICAL MANAGER, FLAQUITA S 788.41 URINARY FREQUENCY 10/20/2012 BEAR DO, DANIELA K 599.0 URINARY TRACT INFECTION SITE NOT SPECIFIED 10/20/2012 BEAR DO, DANIELA K 788.41 URINARY FREQUENCY 01/04/2013 250.80 DIABETES WITH OTHER SPECIFIED MANIFESTATIONS TYPE II OR UNSPECIFIED TYPE NOT STATED UNCONTROLLED 01/04/2013 BEAR DO, DANIELA K 250.80 DIABETES WITH OTHER SPECIFIED MANIFESTATIONS TYPE II OR UNSPECIFIED TYPE NOT STATED UNCONTROLLED 01/04/2013 MARIANELA DO DANIELA K 250.80 DIABETES WITH OTHER SPECIFIED MANIFESTATIONS TYPE II OR UNSPECIFIED TYPE NOT STATED UNCONTROLLED 01/04/2013 BEAR DO DANIELA K 250.80 DIABETES WITH OTHER SPECIFIED MANIFESTATIONS TYPE II OR UNSPECIFIED TYPE NOT STATED UNCONTROLLED 01/04/2013 BEAR DO, DANIELA K 250.80 DIABETES WITH OTHER SPECIFIED MANIFESTATIONS TYPE II OR UNSPECIFIED TYPE NOT STATED UNCONTROLLED 01/04/2013 MARIANELA PHILIP DANIELA K 250.80 DIABETES WITH OTHER SPECIFIED MANIFESTATIONS TYPE II OR UNSPECIFIED TYPE NOT STATED UNCONTROLLED 01/04/2013 BEAR DO, DANIELA K 250.80 DIABETES WITH OTHER SPECIFIED MANIFESTATIONS TYPE II OR UNSPECIFIED TYPE NOT STATED UNCONTROLLED 01/04/2013 MARIANELA PHILIP DANIELA K 250.80 DIABETES WITH OTHER SPECIFIED MANIFESTATIONS TYPE II OR UNSPECIFIED TYPE NOT STATED UNCONTROLLED 01/04/2013 DANIELA BEAR DO 250.80 DIABETES WITH OTHER SPECIFIED MANIFESTATIONS TYPE II OR UNSPECIFIED TYPE NOT STATED UNCONTROLLED 01/04/2013 DANIELA BEAR DO 250.80 DIABETES WITH OTHER SPECIFIED MANIFESTATIONS TYPE II OR UNSPECIFIED TYPE NOT STATED UNCONTROLLED 01/04/2013 DANIELA BEAR DO 250.80 DIABETES WITH OTHER SPECIFIED MANIFESTATIONS TYPE II OR UNSPECIFIED TYPE NOT STATED UNCONTROLLED 01/04/2013 DANIELA BEAR DO 250.80 DIABETES WITH OTHER SPECIFIED MANIFESTATIONS TYPE II OR UNSPECIFIED TYPE NOT STATED UNCONTROLLED 01/04/2013 FLAQUITA MCDUFFIE APRN 250.80 DIABETES WITH OTHER SPECIFIED MANIFESTATIONS TYPE II OR UNSPECIFIED TYPE NOT STATED UNCONTROLLED 01/04/2013 DANIELA BEAR DO 250.80 DIABETES WITH OTHER SPECIFIED MANIFESTATIONS TYPE II OR UNSPECIFIED TYPE NOT STATED UNCONTROLLED 01/04/2013 DANIELA BEAR DO 250.80 DIABETES WITH OTHER SPECIFIED MANIFESTATIONS TYPE II OR UNSPECIFIED TYPE NOT STATED UNCONTROLLED 01/04/2013 DANIELA BEAR DO 250.80 DIABETES WITH OTHER SPECIFIED MANIFESTATIONS TYPE II OR UNSPECIFIED TYPE NOT STATED UNCONTROLLED 01/04/2013 DANIELA BEAR DO 250.80 DIABETES WITH OTHER SPECIFIED MANIFESTATIONS TYPE II OR UNSPECIFIED TYPE NOT STATED UNCONTROLLED 01/04/2013 DANIELA BEAR DO 250.80 DIABETES WITH OTHER SPECIFIED MANIFESTATIONS TYPE II OR UNSPECIFIED TYPE NOT STATED UNCONTROLLED 01/04/2013 DANIELA BEAR DO 250.80 DIABETES WITH OTHER SPECIFIED MANIFESTATIONS TYPE II OR UNSPECIFIED TYPE NOT STATED UNCONTROLLED 01/04/2013 DANIELA BEAR DO 250.80 DIABETES WITH OTHER SPECIFIED MANIFESTATIONS TYPE II OR UNSPECIFIED TYPE NOT STATED UNCONTROLLED 01/04/2013 DANIELA BEAR DO 250.80 DIABETES WITH OTHER SPECIFIED MANIFESTATIONS TYPE II OR UNSPECIFIED TYPE NOT STATED UNCONTROLLED 01/04/2013 VASQUEZ PAZ MD.80 DIABETES WITH OTHER SPECIFIED MANIFESTATIONS TYPE II OR UNSPECIFIED TYPE NOT STATED UNCONTROLLED 01/04/2013 DANIELA BEAR DO 250.80 DIABETES WITH OTHER SPECIFIED MANIFESTATIONS TYPE II OR UNSPECIFIED TYPE NOT STATED UNCONTROLLED 01/04/2013 DANIELA BEAR DO 250.80 DIABETES WITH OTHER SPECIFIED MANIFESTATIONS TYPE II OR UNSPECIFIED TYPE NOT STATED UNCONTROLLED 01/04/2013 VASQUEZ PAZ MD.80 DIABETES WITH OTHER SPECIFIED MANIFESTATIONS TYPE II OR UNSPECIFIED TYPE NOT STATED UNCONTROLLED 01/04/2013 DANIELA BEAR DO 250.80 DIABETES WITH OTHER SPECIFIED MANIFESTATIONS TYPE II OR UNSPECIFIED TYPE NOT STATED UNCONTROLLED 01/04/2013 DANIELA BEAR DO 250.80 DIABETES WITH OTHER SPECIFIED MANIFESTATIONS TYPE II OR UNSPECIFIED TYPE NOT STATED UNCONTROLLED 01/04/2013 DANIELA BEAR DO 250.80 DIABETES WITH OTHER SPECIFIED MANIFESTATIONS TYPE II OR UNSPECIFIED TYPE NOT STATED UNCONTROLLED 01/04/2013 WESTON MARINA PA-C 250.80 DIABETES WITH OTHER SPECIFIED MANIFESTATIONS TYPE II OR UNSPECIFIED TYPE NOT STATED UNCONTROLLED 01/04/2013 DANIELA BEAR DO 250.80 DIABETES WITH OTHER SPECIFIED MANIFESTATIONS TYPE II OR UNSPECIFIED TYPE NOT STATED UNCONTROLLED 01/04/2013 DANIELA BEAR DO 250.80 DIABETES WITH OTHER SPECIFIED MANIFESTATIONS TYPE II OR UNSPECIFIED TYPE NOT STATED UNCONTROLLED 01/04/2013 DANIELA BEAR DO 250.80 DIABETES WITH OTHER SPECIFIED MANIFESTATIONS TYPE II OR UNSPECIFIED TYPE NOT STATED UNCONTROLLED 01/04/2013 ROSA RIZO APRN 250.80 DIABETES WITH OTHER SPECIFIED MANIFESTATIONS TYPE II OR UNSPECIFIED TYPE NOT STATED UNCONTROLLED 01/04/2013 DANIELA BEAR DO 250.80 DIABETES WITH OTHER SPECIFIED MANIFESTATIONS TYPE II OR UNSPECIFIED TYPE NOT STATED UNCONTROLLED 01/04/2013 DANIELA BEAR DO 250.80 DIABETES WITH OTHER SPECIFIED MANIFESTATIONS TYPE II OR UNSPECIFIED TYPE NOT STATED UNCONTROLLED 01/04/2013 DANIELA BEAR DO 250.80 DIABETES WITH OTHER SPECIFIED MANIFESTATIONS TYPE II OR UNSPECIFIED TYPE NOT STATED UNCONTROLLED 01/04/2013 DANIELA BEAR DO 250.80 DIABETES WITH OTHER SPECIFIED MANIFESTATIONS TYPE II OR UNSPECIFIED TYPE NOT STATED UNCONTROLLED 01/04/2013 DANIELA BEAR DO 250.80 DIABETES WITH OTHER SPECIFIED MANIFESTATIONS TYPE II OR UNSPECIFIED TYPE NOT STATED UNCONTROLLED 01/04/2013 FLAQUITA MCDUFFIE APRN 250.80 DIABETES WITH OTHER SPECIFIED MANIFESTATIONS TYPE II OR UNSPECIFIED TYPE NOT STATED UNCONTROLLED 01/04/2013 DANIELA BEAR DO 250.80 DIABETES WITH OTHER SPECIFIED MANIFESTATIONS TYPE II OR UNSPECIFIED TYPE NOT STATED UNCONTROLLED 07/01/2013 DANIELA BEAR DO 458.9 HYPOTENSION 07/01/2013 DANIELA BEAR DO 458.9 HYPOTENSION 07/01/2013 JACKSON YEH, VASQUEZ 458.9 HYPOTENSION 07/01/2013 BEAR DO, DANIELA K 458.9 HYPOTENSION 07/01/2013 BEAR DO, DANIELA K 458.9 HYPOTENSION 07/01/2013 VASQUEZ PAZ MD 458.9 HYPOTENSION 07/01/2013 BEAR DO, DANIELA K 458.9 HYPOTENSION 07/01/2013 BEAR DO, DANIELA K 458.9 HYPOTENSION 07/01/2013 BEAR DO, DANIELA K 458.9 HYPOTENSION 07/01/2013 WESTON MARINA PA-C 458.9 HYPOTENSION 07/01/2013 BEAR DO, DANIELA K 458.9 HYPOTENSION 07/01/2013 BEAR DO, DANIELA K 458.9 HYPOTENSION 07/01/2013 BEAR DO, DANIELA K 458.9 HYPOTENSION 07/01/2013 ROSA RIZO APRN A 458.9 HYPOTENSION 07/01/2013 BEAR DO, DANIELA K 458.9 HYPOTENSION 07/01/2013 BEAR DO, DANIELA K 458.9 HYPOTENSION 07/01/2013 BEAR DO, DANIELA K 458.9 HYPOTENSION 07/01/2013 BEAR DO, DANIELA K 458.9 HYPOTENSION 07/01/2013 BEAR DO, DANIELA K 458.9 HYPOTENSION 07/01/2013 KHUSHBU MCDUFFIE APRNA S 458.9 HYPOTENSION 07/01/2013 BEAR DO, DANIELA K 458.9 HYPOTENSION 07/19/2013 BEAR DO, DANIELA K 720.2 SACROILIITIS NOT ELSEWHERE CLASSIFIED 07/19/2013 BEAR DO, DANIELA K 720.2 SACROILIITIS NOT ELSEWHERE CLASSIFIED 07/19/2013 BEAR DO, DANIELA K 720.2 SACROILIITIS NOT ELSEWHERE CLASSIFIED 07/19/2013 BEAR DO, DANIELA K 720.2 SACROILIITIS NOT ELSEWHERE CLASSIFIED 07/19/2013 VASQUEZ PAZ MD 720.2 SACROILIITIS NOT ELSEWHERE CLASSIFIED 07/19/2013 BEAR DO, DANIELA K 720.2 SACROILIITIS NOT ELSEWHERE CLASSIFIED 07/19/2013 BEAR DO, DANIELA K 720.2 SACROILIITIS NOT ELSEWHERE CLASSIFIED 07/19/2013 VASQUEZ PAZ MD 720.2 SACROILIITIS NOT ELSEWHERE CLASSIFIED 07/19/2013 BEAR DO, DANIELA K 720.2 SACROILIITIS NOT ELSEWHERE CLASSIFIED 07/19/2013 BEAR DO, DANIELA K 720.2 SACROILIITIS NOT ELSEWHERE CLASSIFIED 07/19/2013 BEAR DO, DANIELA K 720.2 SACROILIITIS NOT ELSEWHERE CLASSIFIED 07/19/2013 WESTON MARINA PA-C 720.2 SACROILIITIS NOT ELSEWHERE CLASSIFIED 07/19/2013 BEAR DO, DANIELA K 720.2 SACROILIITIS NOT ELSEWHERE CLASSIFIED 07/19/2013 BEAR DO, DANIELA K 720.2 SACROILIITIS NOT ELSEWHERE CLASSIFIED 07/19/2013 BEAR DO, DANIELA K 720.2 SACROILIITIS NOT ELSEWHERE CLASSIFIED 07/19/2013 ROSA RIZO APRN 720.2 SACROILIITIS NOT ELSEWHERE CLASSIFIED 07/19/2013 BEAR DO, DANIELA K 720.2 SACROILIITIS NOT ELSEWHERE CLASSIFIED 07/19/2013 BEAR DO, DANIELA K 720.2 SACROILIITIS NOT ELSEWHERE CLASSIFIED 07/19/2013 BEAR DO, DANIELA K 720.2 SACROILIITIS NOT ELSEWHERE CLASSIFIED 07/19/2013 BEAR DO, DANIELA K 720.2 SACROILIITIS NOT ELSEWHERE CLASSIFIED 07/19/2013 BEAR DO, DANIELA K 720.2 SACROILIITIS NOT ELSEWHERE CLASSIFIED 07/19/2013 FLAQUITA MCDUFFIE APRN 720.2 SACROILIITIS NOT ELSEWHERE CLASSIFIED 07/19/2013 BEAR DO, DANIELA K 720.2 SACROILIITIS NOT ELSEWHERE CLASSIFIED 07/22/2013 VASQUEZ PAZ MD 362.50 MACULAR DEGENERATION (SENILE) OF RETINA UNSPECIFIED 07/22/2013 VASQUEZ PAZ MD 366.10 cataracts unspecified, right, left or both 07/22/2013 VASQUEZ PAZ MD 367.0 HYPERMETROPIA 07/22/2013 VASQUEZ PAZ MD 367.20 ASTIGMATISM UNSPECIFIED 07/22/2013 VASQUEZ PAZ MD 367.4 PRESBYOPIA 07/22/2013 BEAR DO, DANIELA K 362.50 MACULAR DEGENERATION (SENILE) OF RETINA UNSPECIFIED 07/22/2013 BEAR DO, DANIELA K 366.10 cataracts unspecified, right, left or both 07/22/2013 BEAR DO, DNAIELA K 367.0 HYPERMETROPIA 07/22/2013 BEAR DO, DANIELA K 367.20 ASTIGMATISM UNSPECIFIED 07/22/2013 BEAR DO, DANIELA K 367.4 PRESBYOPIA 07/22/2013 BEAR DO, DANIELA K 362.50 MACULAR DEGENERATION (SENILE) OF RETINA UNSPECIFIED 07/22/2013 BEAR DO, DANIELA K 366.10 cataracts unspecified, right, left or both 07/22/2013 BEAR DO, DANIELA K 367.0 HYPERMETROPIA 07/22/2013 BEAR DO, DANIELA K 367.20 ASTIGMATISM UNSPECIFIED 07/22/2013 BEAR DO, DANIELA K 367.4 PRESBYOPIA 07/22/2013 VASQUEZ PAZ MD 362.50 MACULAR DEGENERATION (SENILE) OF RETINA UNSPECIFIED 07/22/2013 VASQUEZ PAZ MD 366.10 cataracts unspecified, right, left or both 07/22/2013 VASQUEZ PAZ MD 367.0 HYPERMETROPIA 07/22/2013 VASQUEZ PAZ MD 367.20 ASTIGMATISM UNSPECIFIED 07/22/2013 VASQUEZ PAZ MD 367.4 PRESBYOPIA 07/22/2013 BEAR DO, DANIELA K 362.50 MACULAR DEGENERATION (SENILE) OF RETINA UNSPECIFIED 07/22/2013 BEAR DO, DANIELA K 366.10 cataracts unspecified, right, left or both 07/22/2013 BEAR DO, DANIELA K 367.0 HYPERMETROPIA 07/22/2013 BEAR DO, DANIELA K 367.20 ASTIGMATISM UNSPECIFIED 07/22/2013 BEAR DO, DANIELA K 367.4 PRESBYOPIA 07/22/2013 BEAR DO, DANIELA K 362.50 MACULAR DEGENERATION (SENILE) OF RETINA UNSPECIFIED 07/22/2013 BEAR DO, DANIELA K 366.10 cataracts unspecified, right, left or both 07/22/2013 BEAR DO, DANIELA K 367.0 HYPERMETROPIA 07/22/2013 BEAR DO, DANIELA K 367.20 ASTIGMATISM UNSPECIFIED 07/22/2013 BEAR DO, DANIELA K 367.4 PRESBYOPIA 07/22/2013 BEAR DO, DANIELA K 362.50 MACULAR DEGENERATION (SENILE) OF RETINA UNSPECIFIED 07/22/2013 BEAR DO, DANIELA K 366.10 cataracts unspecified, right, left or both 07/22/2013 BEAR DO, DANIELA K 367.0 HYPERMETROPIA 07/22/2013 BEAR DO, DANIELA K 367.20 ASTIGMATISM UNSPECIFIED 07/22/2013 BEAR DO, DANIELA K 367.4 PRESBYOPIA 07/22/2013 WETSON MARINA PA-C 362.50 MACULAR DEGENERATION (SENILE) OF RETINA UNSPECIFIED 07/22/2013 MARINA PA-C, WESTON M 366.10 cataracts unspecified, right, left or both 07/22/2013 SALAS PA-C, WESTON M 367.0 HYPERMETROPIA 07/22/2013 SALAS BARROSO, WESTON M 367.20 ASTIGMATISM UNSPECIFIED 07/22/2013 MARINA BRENDA-C, WESTON M 367.4 PRESBYOPIA 07/22/2013 BEAR DO, DANIELA K 362.50 MACULAR DEGENERATION (SENILE) OF RETINA UNSPECIFIED 07/22/2013 BEAR DO, DANIELA K 366.10 cataracts unspecified, right, left or both 07/22/2013 BEAR DO, DANIELA K 367.0 HYPERMETROPIA 07/22/2013 BEAR DO, DANIELA K 367.20 ASTIGMATISM UNSPECIFIED 07/22/2013 BEAR DO, DANIELA K 367.4 PRESBYOPIA 07/22/2013 BEAR DO, DANIELA K 362.50 MACULAR DEGENERATION (SENILE) OF RETINA UNSPECIFIED 07/22/2013 BEAR DO, DANIELA K 366.10 cataracts unspecified, right, left or both 07/22/2013 BEAR DO, DANIELA K 367.0 HYPERMETROPIA 07/22/2013 BEAR DO, DANIELA K 367.20 ASTIGMATISM UNSPECIFIED 07/22/2013 BEAR DO, DANIELA K 367.4 PRESBYOPIA 07/22/2013 BEAR DO, DANIELA K 362.50 MACULAR DEGENERATION (SENILE) OF RETINA UNSPECIFIED 07/22/2013 BEAR DO, DANIELA K 366.10 cataracts unspecified, right, left or both 07/22/2013 BEAR DO, DANIELA K 367.0 HYPERMETROPIA 07/22/2013 BEAR DO, DANIELA K 367.20 ASTIGMATISM UNSPECIFIED 07/22/2013 BEAR DO, DANIELA K 367.4 PRESBYOPIA 07/22/2013 RAJOTTE BIOMEDICAL MANAGER, ROSA A 362.50 MACULAR DEGENERATION (SENILE) OF RETINA UNSPECIFIED 07/22/2013 RAJOTTE BIOMEDICAL MANAGER, ROSA A 366.10 cataracts unspecified, right, left or both 07/22/2013 RAJOTTE BIOMEDICAL MANAGER, ROSA A 367.0 HYPERMETROPIA 07/22/2013 RAJOTTE BIOMEDICAL MANAGER, ROSA A 367.20 ASTIGMATISM UNSPECIFIED 07/22/2013 RAJOTTE BIOMEDICAL MANAGER, ROSA A 367.4 PRESBYOPIA 07/22/2013 BEAR DO, DANIELA K 362.50 MACULAR DEGENERATION (SENILE) OF RETINA UNSPECIFIED 07/22/2013 BEAR DO, DANIELA K 366.10 cataracts unspecified, right, left or both 07/22/2013 BEAR DO, DANIELA K 367.0 HYPERMETROPIA 07/22/2013 BEAR DO, DANIELA K 367.20 ASTIGMATISM UNSPECIFIED 07/22/2013 BEAR DO, DANIELA K 367.4 PRESBYOPIA 07/22/2013 BEAR DO, DANIELA K 362.50 MACULAR DEGENERATION (SENILE) OF RETINA UNSPECIFIED 07/22/2013 BEAR DO, DANIELA K 366.10 cataracts unspecified, right, left or both 07/22/2013 BEAR DO, DANIELA K 367.0 HYPERMETROPIA 07/22/2013 BEAR DO, DANIELA K 367.20 ASTIGMATISM UNSPECIFIED 07/22/2013 BEAR DO, DANIELA K 367.4 PRESBYOPIA 07/22/2013 BEAR DO, DANIELA K 362.50 MACULAR DEGENERATION (SENILE) OF RETINA UNSPECIFIED 07/22/2013 BEAR DO, DANIELA K 366.10 cataracts unspecified, right, left or both 07/22/2013 BEAR DO, DANIELA K 367.0 HYPERMETROPIA 07/22/2013 BEAR DO, DANIELA K 367.20 ASTIGMATISM UNSPECIFIED 07/22/2013 BEAR DO, DANIELA K 367.4 PRESBYOPIA 07/22/2013 BEAR DO, DANIELA K 362.50 MACULAR DEGENERATION (SENILE) OF RETINA UNSPECIFIED 07/22/2013 BEAR DO, DANIELA K 366.10 cataracts unspecified, right, left or both 07/22/2013 BEAR DO, DANIELA K 367.0 HYPERMETROPIA 07/22/2013 BEAR DO, DANIELA K 367.20 ASTIGMATISM UNSPECIFIED 07/22/2013 BEAR DO, DANIELA K 367.4 PRESBYOPIA 07/22/2013 BEAR DO, DANIELA K 362.50 MACULAR DEGENERATION (SENILE) OF RETINA UNSPECIFIED 07/22/2013 BEAR DO, DANIELA K 366.10 cataracts unspecified, right, left or both 07/22/2013 BEAR DO, DANIELA K 367.0 HYPERMETROPIA 07/22/2013 BEAR DO, DANIELA K 367.20 ASTIGMATISM UNSPECIFIED 07/22/2013 BEAR DO, DANIELA K 367.4 PRESBYOPIA 07/22/2013 FLAQUITA MCDUFFIE APRN 362.50 MACULAR DEGENERATION (SENILE) OF RETINA UNSPECIFIED 07/22/2013 FROY BIOMEDICAL MANAGER, FLAQUITA S 366.10 cataracts unspecified, right, left or both 07/22/2013 FROY BIOMEDICAL MANAGERDARCIFLAQUITA S 367.0 HYPERMETROPIA 07/22/2013 FROY BIOMEDICAL MANAGER, FLAQUITA S 367.20 ASTIGMATISM UNSPECIFIED 07/22/2013 FROY BIOMEDICAL MANAGER, FLAQUITA S 367.4 PRESBYOPIA 07/22/2013 BEAR DO, DANIELA K 362.50 MACULAR DEGENERATION (SENILE) OF RETINA UNSPECIFIED 07/22/2013 BEAR DO, DANIELA K 366.10 cataracts unspecified, right, left or both 07/22/2013 BEAR DO, DANIELA K 367.0 HYPERMETROPIA 07/22/2013 BEAR DO, DANIELA K 367.20 ASTIGMATISM UNSPECIFIED 07/22/2013 BEAR DO, DANIELA K 367.4 PRESBYOPIA 08/06/2013 BREANNE DPM, [place] Q Ot 250.00 DIAB BRISA WO COMPL, TYPE II OR UNSPEC TY 08/06/2013 BREANNE DPM, [place] Q Ot 715.97 OSTEOARTHROS NOS-ANKLE 08/06/2013 BREANNE DPM, [place] Q Ot 735.0 HALLUX VALGUS 08/06/2013 BREANNE DPM, [place] Q Ot 754.52 METATARSUS PRIMUS VARUS 09/17/2013 BEAR DO, DANIELA K 380.10 INFECTIVE OTITIS EXTERNA UNSPECIFIED 09/17/2013 BEAR DO, DANIELA K 599.0 URINARY TRACT INFECTION 09/17/2013 BEAR DO, DANIELA K 380.10 INFECTIVE OTITIS EXTERNA UNSPECIFIED 09/17/2013 BEAR DO, DANIELA K 599.0 URINARY TRACT INFECTION 09/17/2013 VASQUEZ PAZ MD 380.10 INFECTIVE OTITIS EXTERNA UNSPECIFIED 09/17/2013 VASQUEZ PAZ MD 599.0 URINARY TRACT INFECTION 09/17/2013 BEAR DO, DANIELA K 380.10 INFECTIVE OTITIS EXTERNA UNSPECIFIED 09/17/2013 BEAR DO, DANIELA K 599.0 URINARY TRACT INFECTION 09/17/2013 BEAR DO, DANIELA K 380.10 INFECTIVE OTITIS EXTERNA UNSPECIFIED 09/17/2013 BEAR DO, DANIELA K 599.0 URINARY TRACT INFECTION 09/17/2013 BEAR DO, DANIELA K 380.10 INFECTIVE OTITIS EXTERNA UNSPECIFIED 09/17/2013 BEAR DO, DANIELA K 599.0 URINARY TRACT INFECTION 09/17/2013 WESTON MARINA PA-C 380.10 INFECTIVE OTITIS EXTERNA UNSPECIFIED 09/17/2013 WESTON MARINA PA-C 599.0 URINARY TRACT INFECTION 09/17/2013 BEAR DO, DANIELA K 380.10 INFECTIVE OTITIS EXTERNA UNSPECIFIED 09/17/2013 BEAR DO, DANIELA K 599.0 URINARY TRACT INFECTION 09/17/2013 BEAR DO, DANIELA K 380.10 INFECTIVE OTITIS EXTERNA UNSPECIFIED 09/17/2013 BEAR DO, DANIELA K 599.0 URINARY TRACT INFECTION 09/17/2013 BEAR DO, DANIELA K 380.10 INFECTIVE OTITIS EXTERNA UNSPECIFIED 09/17/2013 BEAR DO, DANIELA K 599.0 URINARY TRACT INFECTION 09/17/2013 DARRIUS DONALDSONN ROSA A 380.10 INFECTIVE OTITIS EXTERNA UNSPECIFIED 09/17/2013 DARRIUS DONALDSONN ROSA A 599.0 URINARY TRACT INFECTION 09/17/2013 BEAR DO, DANIELA K 380.10 INFECTIVE OTITIS EXTERNA UNSPECIFIED 09/17/2013 BEAR DO, DANIELA K 599.0 URINARY TRACT INFECTION 09/17/2013 BEAR DO, DANIELA K 380.10 INFECTIVE OTITIS EXTERNA UNSPECIFIED 09/17/2013 BEAR DO, DANIELA K 599.0 URINARY TRACT INFECTION 09/17/2013 BEAR DO, DANIELA K 380.10 INFECTIVE OTITIS EXTERNA UNSPECIFIED 09/17/2013 BEAR DO, DANIELA K 599.0 URINARY TRACT INFECTION 09/17/2013 BEAR DO, DANIELA K 380.10 INFECTIVE OTITIS EXTERNA UNSPECIFIED 09/17/2013 BEAR DO, DANIELA K 599.0 URINARY TRACT INFECTION 09/17/2013 BEAR DO, DANIELA K 380.10 INFECTIVE OTITIS EXTERNA UNSPECIFIED 09/17/2013 BEAR DO, DANIELA K 599.0 URINARY TRACT INFECTION 09/17/2013 FLAQUITA MCDUFFIE APRN S 380.10 INFECTIVE OTITIS EXTERNA UNSPECIFIED 09/17/2013 FLAQUITA MCDUFFIE APRN S 599.0 URINARY TRACT INFECTION 09/17/2013 BEAR DO, DANIELA K 380.10 INFECTIVE OTITIS EXTERNA UNSPECIFIED 09/17/2013 BEAR DO, DANIELA K 599.0 URINARY TRACT INFECTION 11/19/2013 JACKSON YEH, VASQUEZ 443.9 PERIPHERAL VASCULAR DISEASE UNSPECIFIED 11/19/2013 BEAR DO, DANIELA K 443.9 PERIPHERAL VASCULAR DISEASE UNSPECIFIED 11/19/2013 BEAR DO, DANIELA K 443.9 PERIPHERAL VASCULAR DISEASE UNSPECIFIED 11/19/2013 BEAR DO, DANIELA K 443.9 PERIPHERAL VASCULAR DISEASE UNSPECIFIED 11/19/2013 WESTON MARINA PA-C 443.9 PERIPHERAL VASCULAR DISEASE UNSPECIFIED 11/19/2013 BEAR DO, DANIELA K 443.9 PERIPHERAL VASCULAR DISEASE UNSPECIFIED 11/19/2013 BEAR DO, DANIELA K 443.9 PERIPHERAL VASCULAR DISEASE UNSPECIFIED 11/19/2013 BEAR DO, DANIELA K 443.9 PERIPHERAL VASCULAR DISEASE UNSPECIFIED 11/19/2013 ROSA RIZO APRN 443.9 PERIPHERAL VASCULAR DISEASE UNSPECIFIED 11/19/2013 BEAR DO, DANIELA K 443.9 PERIPHERAL VASCULAR DISEASE UNSPECIFIED 11/19/2013 BEAR DO, DANIELA K 443.9 PERIPHERAL VASCULAR DISEASE UNSPECIFIED 11/19/2013 BEAR DO, DANIELA K 443.9 PERIPHERAL VASCULAR DISEASE UNSPECIFIED 11/19/2013 BEAR DO, DANIELA K 443.9 PERIPHERAL VASCULAR DISEASE UNSPECIFIED 11/19/2013 BEAR DO, DANIELA K 443.9 PERIPHERAL VASCULAR DISEASE UNSPECIFIED 11/19/2013 FLAQUITA MCDUFFIE APRN 443.9 PERIPHERAL VASCULAR DISEASE UNSPECIFIED 11/19/2013 BEAR DO, DANIELA K 443.9 PERIPHERAL VASCULAR DISEASE UNSPECIFIED 02/08/2014 BEAR DO, DANIELA K 782.3 EDEMA 02/08/2014 BEAR DO, DANIELA K V04.81 FLU SHOT 02/08/2014 WESTON MARINA PA-C 782.3 EDEMA 02/08/2014 WESTON MARINA PA-C V04.81 FLU SHOT 02/08/2014 BEAR DO, DANIELA K 782.3 EDEMA 02/08/2014 BEAR DO, DANIELA K V04.81 FLU SHOT 02/08/2014 BEAR DO, DANIELA K 782.3 EDEMA 02/08/2014 BEAR DO, DANIELA K V04.81 FLU SHOT 02/08/2014 BEAR DO, DANIELA K 782.3 EDEMA 02/08/2014 BEAR DO, DANIELA K V04.81 FLU SHOT 02/08/2014 RAJOTTE BIOMEDICAL MANAGER, ROSA A 782.3 EDEMA 02/08/2014 RAJOTTE BIOMEDICAL MANAGER, ROSA A V04.81 FLU SHOT 02/08/2014 BEAR DO, DANIELA K 782.3 EDEMA 02/08/2014 BEAR DO, DANIELA K V04.81 FLU SHOT 02/08/2014 BEAR DO, DANIELA K 782.3 EDEMA 02/08/2014 BEAR DO, DANIELA K V04.81 FLU SHOT 02/08/2014 BEAR DO, DANIELA K 782.3 EDEMA 02/08/2014 BEAR DO, DANIELA K V04.81 FLU SHOT 02/08/2014 BEAR DO, DANIELA K 782.3 EDEMA 02/08/2014 BEAR DO, DANIELA K V04.81 FLU SHOT 02/08/2014 BEAR DO, DANIELA K 782.3 EDEMA 02/08/2014 BEAR DO, DANIELA K V04.81 FLU SHOT 02/08/2014 FROY BIOMEDICAL MANAGER, FLAQUITA S 782.3 EDEMA 02/08/2014 FROY BIOMEDICAL MANAGER, FLAQUITA S V04.81 FLU SHOT 02/08/2014 BEAR DO, DANIELA K 782.3 EDEMA 02/08/2014 BEAR DO, DANIELA K V04.81 FLU SHOT 02/18/2014 BEAR DO, DANIELA K 782.2 LOCALIZED SWELLING MASS OR LUMP 02/18/2014 WESTON MARINA PA-C 782.2 LOCALIZED SWELLING MASS OR LUMP 02/18/2014 BEAR DO, DANIELA K 782.2 LOCALIZED SWELLING MASS OR LUMP 02/18/2014 BEAR DO, DANIELA K 782.2 LOCALIZED SWELLING MASS OR LUMP 02/18/2014 BEAR DO, DANIELA K 782.2 LOCALIZED SWELLING MASS OR LUMP 02/18/2014 RAJOTTE BIOMEDICAL MANAGER, ROSA A 782.2 LOCALIZED SWELLING MASS OR LUMP 02/18/2014 BEAR DO, DANIELA K 782.2 LOCALIZED SWELLING MASS OR LUMP 02/18/2014 BEAR DO, DANIELA K 782.2 LOCALIZED SWELLING MASS OR LUMP 02/18/2014 BEAR DO, DANIELA K 782.2 LOCALIZED SWELLING MASS OR LUMP 02/18/2014 BEAR DO, DANIELA K 782.2 LOCALIZED SWELLING MASS OR LUMP 02/18/2014 BEAR DO, DANIELA K 782.2 LOCALIZED SWELLING MASS OR LUMP 02/18/2014 FLAQUITA MCDUFFIE APRN S 782.2 LOCALIZED SWELLING MASS OR LUMP 02/18/2014 BEAR DO, DANIELA K 782.2 LOCALIZED SWELLING MASS OR LUMP 03/11/2014 BEAR DO, DANIELA K 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 03/11/2014 BEAR DO, DANIELA K 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 03/11/2014 BEAR DO, DANIELA K 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 03/11/2014 DARRIUS FLORENCE, ROSA A 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 03/11/2014 BEAR DO, DANIELA K 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 03/11/2014 BEAR DO, DANIELA K 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 03/11/2014 BEAR DO, DANIELA K 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 03/11/2014 BEAR DO, DANIELA K 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 03/11/2014 BEAR DO, DANIELA K 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 03/11/2014 FLAQUITA MCDUFFIE APRN S 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 03/11/2014 BEAR DO, DANIELA K 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 03/15/2014 FRANKLIN HARRIS MD S Ot 724.02 03/16/2014 WESTON LUNA Ot 782.2 03/16/2014 WESTON LUNA Ot 782.3 03/16/2014 WESTON LUNA Ot 782.2 03/16/2014 WESTON LUNA Ot V81.5 04/07/2014 FRANKLIN HARRIS MD S Ot 724.02 04/11/2014 WESTON LUNA Ot 351.0 04/20/2014 DARRIUS FLORENCE ROSA A 381.81 EUSTACHIAN TUBE DYSFUNCTION 04/20/2014 DARRIUS FLORENCE ROSA A 388.70 OTALGIA 04/20/2014 BEAR DO, DANIELA K 381.81 EUSTACHIAN TUBE DYSFUNCTION 04/20/2014 BEAR DO, DANIELA K 388.70 OTALGIA 04/20/2014 BEAR DO, DANIELA K 381.81 EUSTACHIAN TUBE DYSFUNCTION 04/20/2014 BEAR DO, DANIELA K 388.70 OTALGIA 04/20/2014 BEAR DO, DANIELA K 381.81 EUSTACHIAN TUBE DYSFUNCTION 04/20/2014 BEAR DO, DANIELA K 388.70 OTALGIA 04/20/2014 BEAR DO, DANIELA K 381.81 EUSTACHIAN TUBE DYSFUNCTION 04/20/2014 BEAR DO, DANIELA K 388.70 OTALGIA 04/20/2014 BEAR DO, DANIELA K 381.81 EUSTACHIAN TUBE DYSFUNCTION 04/20/2014 BEAR DO, DANIELA K 388.70 OTALGIA 04/20/2014 FROY BIOMEDICAL MANAGER, FLAQUITA S 381.81 EUSTACHIAN TUBE DYSFUNCTION 04/20/2014 FROY BIOMEDICAL MANAGER, FLAQUITA S 388.70 OTALGIA 04/20/2014 BEAR DO, DANIELA K 381.81 EUSTACHIAN TUBE DYSFUNCTION 04/20/2014 BEAR DO, DANIELA K 388.70 OTALGIA 05/02/2014 BERA DO, DANIELA K 729.5 PAIN IN LIMB 05/02/2014 BEAR DO, DANIELA K 729.5 PAIN IN LIMB 05/02/2014 BEAR DO, DANIELA K 729.5 PAIN IN LIMB 05/02/2014 BEAR DO, DANIELA K 729.5 PAIN IN LIMB 05/02/2014 BEAR DO, DANIELA K 729.5 PAIN IN LIMB 05/02/2014 FROY BIOMEDICAL MANAGER, FLAQUITA S 729.5 PAIN IN LIMB 05/02/2014 BEAR DO, DANIELA K 729.5 PAIN IN LIMB 05/09/2014 WESTON LUNA Ot 782.2 05/30/2014 WESTON LUNA Ot 782.2 06/03/2014 BEAR DO, DANIELA K 338.11 PAIN - ACUTE PAIN DUE TO TRAUMA 06/03/2014 BEAR DO, DANIELA K 380.4 IMPACTED CERUMEN 06/03/2014 BEAR DO, DANIELA K 472.0 CHRONIC RHINITIS 06/03/2014 BEAR DO, DANIELA K 719.45 PAIN IN JOINT INVOLVING PELVIC REGION AND THIGH 06/03/2014 BEAR DO, DANIELA K V15.88 PERSONAL HISTORY OF FALL 06/03/2014 BEAR DO, DANIELA K 338.11 PAIN - ACUTE PAIN DUE TO TRAUMA 06/03/2014 BEAR DO, DANIELA K 380.4 IMPACTED CERUMEN 06/03/2014 BEAR DO, DANIELA K 472.0 CHRONIC RHINITIS 06/03/2014 BEAR DO, DANIELA K 719.45 PAIN IN JOINT INVOLVING PELVIC REGION AND THIGH 06/03/2014 BEAR DO, DANIELA K V15.88 PERSONAL HISTORY OF FALL 06/03/2014 BEAR DO, DANIELA K 338.11 PAIN - ACUTE PAIN DUE TO TRAUMA 06/03/2014 BEAR DO, DANIELA K 380.4 IMPACTED CERUMEN 06/03/2014 BEAR DO, DANIELA K 472.0 CHRONIC RHINITIS 06/03/2014 BEAR DO, DANIELA K 719.45 PAIN IN JOINT INVOLVING PELVIC REGION AND THIGH 06/03/2014 BEAR DO, DANIELA K V15.88 PERSONAL HISTORY OF FALL 06/03/2014 FROY BIOMEDICAL MANAGER FLAQUITA S 338.11 PAIN - ACUTE PAIN DUE TO TRAUMA 06/03/2014 FROY BIOMEDICAL MANAGER FLAQUITA S 380.4 IMPACTED CERUMEN 06/03/2014 FROY BIOMEDICAL MANAGER FLAQUITA S 472.0 CHRONIC RHINITIS 06/03/2014 FROY BIOMEDICAL MANAGER FLAQUITA S 719.45 PAIN IN JOINT INVOLVING PELVIC REGION AND THIGH 06/03/2014 FROY BIOMEDICAL MANAGER, FLAQUITA S V15.88 PERSONAL HISTORY OF FALL 06/03/2014 BEAR DO, DANIELA K 338.11 PAIN - ACUTE PAIN DUE TO TRAUMA 06/03/2014 BEAR DO, DANIELA K 380.4 IMPACTED CERUMEN 06/03/2014 BEAR DO, DANIELA K 472.0 CHRONIC RHINITIS 06/03/2014 BEAR DO, DANIELA K 719.45 PAIN IN JOINT INVOLVING PELVIC REGION AND THIGH 06/03/2014 BEAR DO, DANIELA K V15.88 PERSONAL HISTORY OF FALL 06/30/2014 BEAR DO, DANIELA K 386.10 VERTIGO, PERIPHERAL UNSPECIFIED 06/30/2014 BEAR DO, DANIELA K 787.01 NAUSEA WITH VOMITING 06/30/2014 BEAR DO, DANIELA K 386.10 VERTIGO, PERIPHERAL UNSPECIFIED 06/30/2014 BEAR DO, DANIELA K 787.01 NAUSEA WITH VOMITING 06/30/2014 FROY BIOMEDICAL MANAGER FLAQUITA S 386.10 VERTIGO, PERIPHERAL UNSPECIFIED 06/30/2014 FROY BIOMEDICAL MANAGER FLAQUITA S 787.01 NAUSEA WITH VOMITING 06/30/2014 BEAR DO, DANIELA K 386.10 VERTIGO, PERIPHERAL UNSPECIFIED 06/30/2014 DANIELA BERA DO K 787.01 NAUSEA WITH VOMITING 07/01/2014 DANIELA BEAR DO K 599.0 URINARY TRACT INFECTION 07/01/2014 DANIELA BEAR DO K 599.0 URINARY TRACT INFECTION 07/01/2014 FLAQUITA MCDUFFIE APRN S 599.0 URINARY TRACT INFECTION 07/01/2014 DANIELA BEAR DO 599.0 URINARY TRACT INFECTION 10/04/2014 GENA HAWK DO Ot 250.00 DIAB BRISA WO COMPL, TYPE II OR UNSPEC TY 10/04/2014 GENA HAWK DO Ot V58.67 LONG-TERM (CURRENT) USE OF INSULIN 10/04/2014 GENA HAWK DO Ot V58.69 OTH MED,LT,CURRENT USE 03/01/2015 Ot 790.29 08/16/2015 Ot V76.12 OTH SCREEN MAMMO-MALIGN NEOPLASM OF MARTITA 08/16/2015 BREANNE DPM, [place] Q Ot 735.1 HALLUX VARUS 08/16/2015 BREANNE DPM, [place] Q Ot V72.63 PRE-PROCEDURAL LABORATORY EXAMINATION 08/16/2015 BREANNE DPM, [place] Q Ot V72.84 EXAM PRE-OPERATIVE NOS 08/16/2015 BREANNE DPM, [place] Q Ot V74.8 SCREEN-BACTERIAL DIS NEC 08/16/2015 WESTON LUNA Ot 782.2 LOCAL SUPRFICIAL SWELLNG 08/16/2015 WESTON LUNA Ot 782.3 EDEMA 08/16/2015 WESTON LUNA Ot 782.2 LOCAL SUPRFICIAL SWELLNG 08/16/2015 WESTON LUNA Ot V81.5 SCREEN FOR NEPHROPATHY 08/16/2015 STEVEN YEH, PERITONA S Ot 724.02 SPINAL STENOSIS, LUMBAR REG, W/OUT NEURO 08/16/2015 WESTON LUNA Ot 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 08/16/2015 WESTON LUNA Ot 782.2 LOCAL SUPRFICIAL SWELLNG 08/18/2015 EFREN YEH, MARIEL Roman Ot M54.16 RADICULOPATHY, LUMBAR REGION 09/06/2015 EFREN YEH, MARIEL Roman Ot M54.16 RADICULOPATHY, LUMBAR REGION 01/13/2018 BREANNE DPM, [place] Q Ot 735.1 HALLUX VARUS 01/13/2018 BREANNE DPM, [place] Q Ot V72.63 PRE-PROCEDURAL LABORATORY EXAMINATION 01/13/2018 BREANNE DPM, [place] Q Ot V72.84 EXAM PRE-OPERATIVE NOS 01/13/2018 BREANNE DPM, [place] Q Ot V74.8 SCREEN-BACTERIAL DIS NEC 01/13/2018 SALAS PA, WESTON M Ot 782.2 LOCAL SUPRFICIAL SWELLNG 01/13/2018 SALAS PA, WESTON M Ot 782.3 EDEMA 01/13/2018 SALAS PA, WESTON M Ot 782.2 LOCAL SUPRFICIAL SWELLNG 01/13/2018 MARINA PA, WESTON M Ot V81.5 SCREEN FOR NEPHROPATHY 01/13/2018 STEVEN YEH, FRANKLIN Reeves Ot 724.02 SPINAL STENOSIS, LUMBAR REG, W/OUT NEURO 01/13/2018 SALAS GUTIERREZ, WESTON M Ot 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 01/13/2018 SALAS GUTIERREZ, WESTON M Ot 782.2 LOCAL SUPRFICIAL SWELLNG 01/13/2018 EFREN YEH, MARIEL Roman Ot M54.16 RADICULOPATHY, LUMBAR REGION 01/15/2018 NADIYA CARMONAP Ot M46.06 SPINAL ENTHESOPATHY, LUMBAR REGION 01/15/2018 NDAIYA CARMONA CONSTRUCTION SUPERVISOR Ot M48.02 SPINAL STENOSIS, CERVICAL REGION 01/15/2018 NADIYA CARMONA CONSTRUCTION SUPERVISOR Ot M48.061 SPINAL STENOSIS, LUMBAR REGION WITHOUT N 01/15/2018 NADIYA CARMONA CONSTRUCTION SUPERVISOR Ot M50.122 CERVICAL DISC DISORDER AT C5-C6 LEVEL [place] 01/15/2018 NADIYA CARMONA CONSTRUCTION SUPERVISOR Ot M51.16 INTERVERTEBRAL DISC DISORDERS W RADICULO 01/15/2018 NADIYA CARMONA Ot M89.9 DISORDER OF BONE, UNSPECIFIED 01/15/2018 NADIYA CARMONAP Ot M99.71 CONN TISS AND DISC STENOSIS OF INTVRT FO 01/15/2018 NADIYA CARMONAP Ot M99.73 CONN TISS AND DISC STENOS OF INTVRT FORA 02/03/2018 NADIYA CARMONAP Ot M46.06 SPINAL ENTHESOPATHY, LUMBAR REGION 02/03/2018 NADIYA CARMONA Ot M48.02 SPINAL STENOSIS, CERVICAL REGION 02/03/2018 NADIYA CARMONA Ot M48.061 SPINAL STENOSIS, LUMBAR REGION WITHOUT N 02/03/2018 NADIYA CARMONA Ot M50.122 CERVICAL DISC DISORDER AT C5-C6 LEVEL [place] 02/03/2018 NADIYA CARMONA Ot M51.16 INTERVERTEBRAL DISC DISORDERS W RADICULO 02/03/2018 NADIYA CARMONA Ot M89.9 DISORDER OF BONE, UNSPECIFIED 02/03/2018 NADIYA CARMONA Ot M99.71 CONN TISS AND DISC STENOSIS OF INTVRT FO 02/03/2018 NADIYA CARMONA Ot M99.73 CONN TISS AND DISC STENOS OF INTVRT FORA Procedures Code [place] [address] ROUTINE VENIPUNCTURE 03/20/2012 12178 A1C (IN-HOUSE) 03/20/2012 47651 CMP 03/20/2012 8311828 GFR CALC (RESULT ONLY) 03/20/2012 28090 MAMMOGRAM, SCREENING 05/19/2012 83306 PAP SMEAR 05/19/2012 Q0091 PAP SMEAR OBTAIN SMEAR 05/19/2012 21768 CULTURE UROGENITAL 05/20/2012 65080 ROUTINE VENIPUNCTURE 06/19/2012 74195 A1C (IN-HOUSE) 06/19/2012 49859 CMP 06/19/2012 41949 LIPID PANEL 06/19/2012 [id number] GFR CALC (RESULT ONLY) 06/19/2012 90748 ROUTINE VENIPUNCTURE 09/30/2012 98334 A1C (IN-HOUSE) 09/30/2012 46206 MICRO ALBUMIN-IN HOUSE 09/30/2012 54578 CMP 09/30/2012 57399 MICROALBUMIN 09/30/2012 83612 A1C (IN-HOUSE) 01/04/2013 43507 CMP 01/04/2013 99854 LIPID PANEL 01/04/2013 93323 DEBRIDE NAIL 1-5 01/22/2013 J0696 ROCEPHIN INJ 01/22/2013 92306 THERAPUTIC INJ SQ/IM 01/22/2013 81294 THERAPUTIC INJ SQ/IM 01/25/2013 J0696 ROCEPHIN INJ 01/25/2013 12957 ROUTINE VENIPUNCTURE 05/17/2013 27617 MICRO ALBUMIN-IN HOUSE 05/17/2013 90918 A1C (IN-HOUSE) 05/17/2013 62131 CMP 05/17/2013 2000F BLOOD PRESSURE CHECK 07/01/2013 80733 DEBRIDE NAIL >6 07/09/2013 31244 ROUTINE VENIPUNCTURE 07/19/2013 OPHTHALMJohn CLAUDIARADHA 07/19/20138F FOOT EXAM PERFORMED 07/19/2013 58147 LIPID PANEL 07/19/2013 61589 ROUTINE VENIPUNCTURE 08/30/2013 98415 CMP 08/30/2013 11710 A1C (IN-HOUSE) 08/30/2013 61109 ROUTINE VENIPUNCTURE 10/04/2013 3419210 GFR CALC (RESULT ONLY) 10/04/2013 32854 CMP 10/04/2013 99567 CMP 12/10/2013 03642 MICRO ALBUMIN-IN HOUSE 12/10/2013 28067 A1C (IN-HOUSE) 12/10/2013 84294 ROUTINE VENIPUNCTURE 12/10/2013 42158 ROUTINE VENIPUNCTURE 02/08/2014 G0008 FLU ADMINISTRATION ( MEDICARE ONLY) 02/08/2014 01759 US LOWER EXTREMITY ULTRASOUND 02/08/2014 87196 LIPID PANEL 02/08/[address] EXTREMITY, LOWER, LEFT W / AND W/O CONTRAST 02/18/2014 80858 ROUTINE VENIPUNCTURE 02/23/2014 67851 LYME EIA W/WEST BLOT 02/23/[address] HEAD/BRAIN W/O DYE 03/14/2014 73553 ROUTINE VENIPUNCTURE 05/02/2014 64632 US SOFT TISSUE (SPECIFY LOCATION) 05/02/2014 08154 A1C (IN-HOUSE) 05/02/2014 9670807 GFR CALC (RESULT ONLY) 05/02/2014 04661 CMP 05/02/2014 J2550 PHENERGAN INJECTION UP TO 50 MG 06/30/2014 15922 THERAPUTIC INJ SQ/IM 06/30/2014 06919 GLUCOSE FINGER STICK 06/30/2014 24176 ROUTINE VENIPUNCTURE 08/12/2014 70242 A1C (IN-HOUSE) 08/12/2014 6263538 GFR CALC (RESULT ONLY) 08/12/2014 84337 CMP 08/12/2014 88334 LIPID PANEL 08/12/2014 Results Test Result Range CBC With Differential/Platelet - 04/03/16 10:44 WBC 5.3 x10E3/uL 3.4-10.8 RBC 4.59 x10E6/uL 3.77-5.28 Hemoglobin 13.5 g/dL 11.1-15.9 Hematocrit 40.1 % 34.0-46.6 MCV 87 fL 79-97 MCH 29.4 pg 26.6-33.0 MCHC 33.7 g/dL 31.5-35.7 RDW 12.9 % 12.3-15.4 Platelets 289 x10E3/uL 150-379 Neutrophils 64 % Lymphs 21 % Monocytes 9 % Eos 5 % Basos 1 % Neutrophils (Absolute) 3.4 x10E3/uL 1.4-7.0 Lymphs (Absolute) 1.1 x10E3/uL 0.7-3.1 Monocytes(Absolute) 0.5 x10E3/uL 0.1-0.9 Eos (Absolute) 0.3 x10E3/uL 0.0-0.4 Baso (Absolute) 0.0 x10E3/uL 0.0-0.2 Immature Granulocytes 0 % Immature Grans (Abs) 0.0 x10E3/uL 0.0-0.1 Comp. Metabolic Panel (14) - 04/03/16 10:44 Glucose, Serum 84 mg/dL 65-99 BUN 11 mg/dL 8-27 Creatinine, Serum 0.70 mg/dL 0.57-1.00 eGFR If NonAfricn Am 90 mL/min/1.73 >59 eGFR If Africn Am 104 mL/min/1.73 >59 BUN/Creatinine Ratio 16 11-26 Sodium, Serum 142 mmol/L 134-144 Potassium, Serum 4.3 mmol/L 3.5-5.2 Chloride, Serum 100 mmol/L 96-106 Carbon Dioxide, Total 27 mmol/L 18-29 Calcium, Serum 9.3 mg/dL 8.7-10.3 Protein, Total, Serum 6.3 g/dL 6.0-8.5 Albumin, Serum 4.4 g/dL 3.6-4.8 Globulin, Total 1.9 g/dL 1.5-4.5 A/G Ratio 2.3 1.1-2.5 Bilirubin, Total 0.3 mg/dL 0.0-1.2 Alkaline Phosphatase, S 64 IU/L 39-117 AST (SGOT) 35 IU/L 0-40 ALT (SGPT) 31 IU/L 0-32 Lipid Panel - 04/03/16 10:44 Cholesterol, Total 139 mg/dL 100-199 Triglycerides 106 mg/dL 0-149 HDL Cholesterol 44 mg/dL >39 VLDL Cholesterol Dev 21 mg/dL 5-40 LDL Cholesterol Calc 74 mg/dL 0-99 Hemoglobin A1c - 04/03/16 10:44 Hemoglobin A1c 5.8 % 4.8-5.6 CBC With Differential/Platelet - 10/21/16 10:56 WBC 6.2 x10E3/uL 3.4-10.8 RBC 4.42 x10E6/uL 3.77-5.28 Hemoglobin 13.3 g/dL 11.1-15.9 Hematocrit 40.4 % 34.0-46.6 MCV 91 fL 79-97 MCH 30.1 pg 26.6-33.0 MCHC 32.9 g/dL 31.5-35.7 RDW 13.3 % 12.3-15.4 Platelets 244 x10E3/uL 150-379 Neutrophils 75 % Lymphs 13 % Monocytes 7 % Eos 5 % Basos 0 % Neutrophils (Absolute) 4.6 x10E3/uL 1.4-7.0 Lymphs (Absolute) 0.8 x10E3/uL 0.7-3.1 Monocytes(Absolute) 0.4 x10E3/uL 0.1-0.9 Eos (Absolute) 0.3 x10E3/uL 0.0-0.4 Baso (Absolute) 0.0 x10E3/uL 0.0-0.2 Immature Granulocytes 0 % Immature Grans (Abs) 0.0 x10E3/uL 0.0-0.1 Comp. Metabolic Panel (14) - 10/21/16 10:56 Glucose, Serum 81 mg/dL 65-99 BUN 13 mg/dL 8-27 Creatinine, Serum 0.74 mg/dL 0.57-1.00 eGFR If NonAfricn Am 84 mL/min/1.73 >59 eGFR If Africn Am 96 mL/min/1.73 >59 BUN/Creatinine Ratio 18 12-28 Sodium, Serum 138 mmol/L 134-144 Potassium, Serum 4.3 mmol/L 3.5-5.2 Chloride, Serum 95 mmol/L 96-106 Carbon Dioxide, Total 25 mmol/L 18-29 Calcium, Serum 9.4 mg/dL 8.7-10.3 Protein, Total, Serum 6.0 g/dL 6.0-8.5 Albumin, Serum 4.0 g/dL 3.6-4.8 Globulin, Total 2.0 g/dL 1.5-4.5 A/G Ratio 2.0 1.2-2.2 Bilirubin, Total 0.3 mg/dL 0.0-1.2 Alkaline Phosphatase, S 65 IU/L 39-117 AST (SGOT) 19 IU/L 0-40 ALT (SGPT) 20 IU/L 0-32 Lipid Panel - 10/21/16 10:56 Cholesterol, Total 99 mg/dL 100-199 Triglycerides 94 mg/dL 0-149 HDL Cholesterol 37 mg/dL >39 VLDL Cholesterol Dev 19 mg/dL 5-40 LDL Cholesterol Calc 43 mg/dL 0-99 CRP - 10/01/17 12:44 C-REACTIVE PROTEIN 4.1 mg/L <8.0 Complete blood count (CBC) with automated white blood cell (WBC) differential - 02/13/18 03:44 Blood leukocytes automated count (number/volume) 6.0 10*3/uL 4.3-11.0 Blood erythrocytes automated count (number/volume) 3.73 10*6/uL 4.35-5.85 Venous blood hemoglobin measurement (mass/volume) 11.3 g/dL 11.5-16.0 Blood hematocrit (volume fraction) 34 % 35-52 Automated erythrocyte mean corpuscular volume 91 [foz_us] 80-99 Automated erythrocyte mean corpuscular hemoglobin (mass per erythrocyte) 30 pg 25-34 Automated erythrocyte mean corpuscular hemoglobin concentration measurement ( mass/volume) 33 g/dL 32-36 Automated erythrocyte distribution width ratio 11.9 % 10.0-14.5 Automated blood platelet count (count/volume) 215 10*3/uL 130-400 Automated blood platelet mean volume measurement 8.1 [foz_us] 7.4-10.4 Automated blood neutrophils/100 leukocytes 80 % 42-75 Automated blood lymphocytes/100 leukocytes 10 % 12-44 Blood monocytes/100 leukocytes 10 % 0-12 Automated blood eosinophils/100 leukocytes 1 % 0-10 Automated blood basophils/100 leukocytes 0 % 0-10 Blood neutrophils automated count (number/volume) 4.8 10*3 1.8-7.8 Blood lymphocytes automated count (number/volume) 0.6 10*3 1.0-4.0 Blood monocytes automated count (number/volume) 0.6 10*3 0.0-1.0 Automated eosinophil count 0.0 10*3/uL 0.0-0.3 Automated blood basophil count (count/volume) 0.0 10*3/uL 0.0-0.1 Capillary blood glucose measurement by glucometer (mass/volume) - 02/13/18 03: 48 Capillary blood glucose measurement by glucometer (mass/volume) 160 mg/dL 70-110 Encounters ACCT No. Visit Date/Time Discharge Status Pt. Type Provider Facility Loc./Unit Complaint [id number] 08/12/2014 11:16:00 08/12/2014 23:59:59 CLS Outpatient BEAR DODANIELA [id number] 07/15/2014 10:20:00 07/15/2014 23:59:59 CLS Outpatient BERA DODANIELA [id number] 07/01/2014 10:47:00 07/01/2014 23:59:59 CLS Outpatient BEAR DODANIELA [id number] 06/30/2014 17:59:00 06/30/2014 23:59:59 CLS Outpatient FLAQUITA MCDUFFIE APRN [id number] 06/03/2014 10:44:00 06/03/2014 23:59:59 CLS Outpatient BEAR DANIELA PHILIP [id number] 05/02/2014 11:20:00 05/02/2014 23:59:59 CLS Outpatient BEAR DODANIELA [id number] 05/02/2014 11:20:00 05/02/2014 23:59:59 CLS Outpatient BEAR DODANIELA [id number] 04/20/2014 15:26:00 04/20/2014 23:59:59 CLS Outpatient ROSA RIZO APRN [id number] 03/18/2014 13:20:00 03/18/2014 23:59:59 CLS Outpatient BEAR DODANIELA [id number] 03/14/2014 10:50:00 03/14/2014 23:59:59 CLS Outpatient BEAR DODANIELA [id number] 03/11/2014 16:24:00 03/11/2014 23:59:59 CLS Outpatient BEAR DODANIELA [id number] 02/23/2014 09:25:00 02/23/2014 23:59:59 CLS Outpatient SALAS BARROSO [place] Isabelle [id number] 02/08/2014 08:53:00 02/08/2014 23:59:59 CLS Outpatient BEAR DODANIELA [id number] 12/10/2013 09:05:00 12/10/2013 23:59:59 CLS Outpatient BEAR DO, DANIELA Veras [id number] 12/10/2013 09:05:00 12/10/2013 23:59:59 CLS Outpatient BEAR DO, DANIELA Veras [id number] 11/19/2013 14:06:00 11/19/2013 23:59:59 CLS Outpatient VASQUEZ PAZ MD [id number] 10/04/2013 11:49:00 10/04/2013 23:59:59 CLS Outpatient BEAR DO, DANIELA Rito [id number] 09/17/2013 15:58:00 09/17/2013 23:59:59 CLS Outpatient BEAR DO, DANIELA Rito [id number] 09/03/2013 10:01:00 09/03/2013 23:59:59 CLS Outpatient VASQUEZ PAZ MD [id number] 08/30/2013 15:21:00 08/30/2013 23:59:59 CLS Outpatient BEAR DO, DANIELA Rito [id number] 07/26/2013 09:30:00 07/26/2013 23:59:59 CLS Outpatient BEAR DODANIELA Rito [id number] 07/19/2013 09:50:00 07/19/2013 23:59:59 CLS Outpatient BEAR DO, DANIELA Veras [id number] 07/09/2013 09:57:00 07/09/2013 23:59:59 CLS Outpatient BEAR DO, DANIELA Rito [id number] 07/09/2013 09:57:00 07/09/2013 23:59:59 CLS Outpatient BEAR DO, DANIELA Veras [id number] 07/01/2013 12:35:00 07/01/2013 23:59:59 CLS Outpatient BEAR DO, DANIELA Rito [id number] 06/18/2013 08:08:00 06/18/2013 23:59:59 CLS Outpatient BEAR DO, DANIELA Rito [id number] 05/17/2013 10:23:00 05/17/2013 23:59:59 CLS Outpatient BEAR DO, DANIELA K [id number] 03/25/2013 10:20:00 03/25/2013 23:59:59 CLS Outpatient FLAQUITA MCDUFFIE APRN [id number] 02/22/2013 17:07:00 02/22/2013 23:59:59 CLS Outpatient BEAR DODANIELA [id number] 02/18/2013 08:28:00 02/18/2013 23:59:59 CLS Outpatient BEAR DO, DANIELA Veras [id number] 02/15/2013 14:08:00 02/15/2013 23:59:59 CLS Outpatient BEAR DO, DANIELA Veras [id number] 02/11/2013 10:28:00 02/11/2013 23:59:59 CLS Outpatient BEAR DO, DANIELA Veras [id number] 02/08/2013 09:48:00 02/08/2013 23:59:59 CLS Outpatient BEAR DO, DANIELA Versa [id number] 02/04/2013 09:24:00 02/04/2013 23:59:59 CLS Outpatient BEAR DO, DANIELA Veras [id number] 02/01/2013 10:36:00 02/01/2013 23:59:59 CLS Outpatient BEAR DO, DANIELA Veras [id number] 01/28/2013 09:21:00 01/28/2013 23:59:59 CLS Outpatient BEAR DO, DANIELA Veras [id number] 01/25/2013 16:28:00 01/25/2013 23:59:59 CLS Outpatient BEAR DODANIELA [id number] 01/22/2013 14:48:00 01/22/2013 23:59:59 CLS Outpatient BEAR DO, DANIELA Rito [id number] 01/22/2013 07:53:00 01/22/2013 23:59:59 CLS Outpatient BEAR DO, DANIELA Rito [id number] 07/01/2012 17:43:00 07/01/2012 23:59:59 CLS Outpatient BEAR DO, DANIELA Rito [id number] 06/19/2012 08:44:00 06/19/2012 23:59:59 CLS Outpatient BEAR DO, DANIELA Rito [id number] 05/19/2012 10:58:00 05/19/2012 23:59:59 CLS Outpatient BEAR DO, DANIELA Rito [id number] 04/16/2012 08:11:00 04/16/2012 23:59:59 CLS Outpatient BEAR DO, DANIELA K [id number] 03/20/2012 09:01:00 03/20/2012 23:59:59 [place] [id number] 02/20/2012 09:01:00 02/20/2012 23:59:59 CLS Outpatient DANIELA BEAR DO [id number] 01/04/2013 11:59:00 Document Registration [id number] 11/30/2012 16:34:00 Document Registration [id number] 10/20/2012 10:59:00 Document Registration [id number] 10/16/2012 07:51:00 Document Registration [id number] 09/30/2012 08:51:00 Document Registration [id number] 10/04/2014 19:08:30 ACT Document Registration [id number] 10/19/2017 13:00:00 10/19/2017 23:59:59 CLS Outpatient NADIYA CARMONA APRN [facility] [id number] 10/01/2017 12:40:00 Document Registration [id number] 10/22/2016 08:06:00 Document Registration [id number] 01/14/2018 10:02:00 01/14/2018 23:59:59 CLS Outpatient NADIYA CARMONA [facility] RAD LUMBAR NEURITIS [id number] 01/12/2018 08:41:00 01/12/2018 23:59:59 CLS Preadmit NADIYA CARMONA [facility] RAD CERVICAL NEURITIS [id number] 08/16/2015 13:08:00 08/16/2015 23:59:59 CLS Outpatient MARIEL SCHWARTZ MD [facility] RAD LUMBAR RADICULOPATHY [id number] 10/04/2014 19:08:00 10/04/2014 21:02:00 DIS Emergency CARINE GENA PHILIP K [facility] ER BLOODSUGAR ISSUES [id number] 05/06/2014 13:41:00 05/06/2014 23:59:59 CLS Outpatient WESTON LUNA [facility] RAD SMALL PALPABLE TENDER MASS RT THIGH [id number] 03/14/2014 13:45:00 03/14/2014 23:59:59 CLS Outpatient WESTON LUNA [facility] RAD BELLS PALSY [id number] 03/08/2014 12:59:00 03/08/2014 23:59:59 CLS Outpatient STEVEN YEH, PERIAPAMARQUITA S [facility] RAD LUMBAR RADICULOPATHY [id number] 02/24/2014 12:41:00 02/24/2014 23:59:59 CLS Outpatient WESTON LUNA [facility] RAD 3.5 CM ISOECHONIC MASS SEEN ON US OF MID THIGH [id number] 02/15/2014 13:07:00 02/15/2014 23:59:59 CLS Outpatient WESTON LUNA [facility] RAD EDEMA [id number] 08/06/2013 10:38:00 08/06/2013 16:00:00 DIS Outpatient BERANNE DPM, [place] Q [facility] SDC BUNION LEFT FOOT [id number] 08/02/2013 12:38:00 08/02/2013 23:59:59 CLS Outpatient BREANNE DPM, [place] Q [facility] PREOP BUNION LEFT FOOT [id number] 02/13/2018 03:54:00 Document Registration [id number] 05/27/2012 09:22:00 Document Registration [id number] 10/31/2009 07:28:00 Document Registration [id number] 04/04/2016 18:05:00 Document Registration
[2018-02-13] MEDS ORDERED: cefTRIAXone FOR IV USE 1,000 MG in NS (IVPB) 50 ML IV ONE (04:45)
[2018-02-13] MEDS ORDERED: AZITHROMYCIN 250 MG TAB (ZITHROMAX) PO ONE (04:45)
[2018-02-13] MEDS ORDERED: oxyCODONE/APAP 5/325MG (PERCOCET 5) TABLET PO ONE (05:15)
--- OUTSIDE RECORDS SUMMARY | 2018-02-13 06:29 | XMS REPORT | Continuity of Care Document ---
Author Author [facility] Address Unknown Phone Unavailable Allergies Active Description Code Type Severity Reaction Onset Reported/Identified Relationship to Patient Clinical Status Yes Penicillins Drug Allergy N/A N/A 06/26/2009 Yes Penicillins Drug Allergy 06/26/2009 Yes glucotrol Drug Allergy N/A N/A 08/29/2010 Yes glucotrol Drug Allergy 08/29/2010 Yes Percocet Drug Allergy N/A N/A 06/18/2013 Yes Stadol Drug Allergy N/A N/A 07/19/2013 Yes glipizide [id number] Drug Allergy Unknown DOESN'T REMEMBE 08/02/2013 Yes acetaminophen [id number] Drug Allergy Mild HALLUCINATIONS 08/06/2013 Yes butorphanol [id number] Drug Allergy Mild HALLUCINATIONS 08/06/2013 Yes Oxycodone [id number] Drug Allergy Mild HALLUCINATIONS 08/06/2013 Yes Penicillins [id number] Drug Allergy Unknown PATIENT HAS LEANA 08/06/2013 [...] MIGRAINE 09/14/2008 696.1 PSORIASIS 09/14/2008 BEAR DO, DAINELA K 338.4 PAIN CHRONIC SYNDROME 09/14/2008 BEAR [...] DO, DANIELA K 696.1 PSORIASIS 09/14/2008 FROY BLACK TOP RAKER, FLAQUITA S 338.4 PAIN CHRONIC SYNDROME 09/14/2008 FROY BLACK TOP RAKER, FLAQUITA S 346.90 MIGRAINE UNSPECIFIED WITHOUT INTRACTABLE MIGRAINE 09/14/2008 FROY BLACK TOP RAKER, FLAQUITA S 696.1 PSORIASIS 09/14/2008 BEAR DO, [...] 346.90 MIGRAINE UNSPECIFIED WITHOUT INTRACTABLE MIGRAINE 09/14/2008 BAER DO, DANIELA K 696.1 PSORIASIS 09/14/2008 BEAR [...] A 338.4 PAIN CHRONIC SYNDROME 09/14/2008 KATIEE BLACK TOP RAKER, ROSA A 346.90 MIGRAINE UNSPECIFIED WITHOUT INTRACTABLE MIGRAINE 09/14/2008 KATIEPeggy BLACK TOP RAKER, ROSA A 696.1 PSORIASIS 09/14/2008 BEAR DO, [...] DO, DANIELA K 696.1 PSORIASIS 09/14/2008 FROY BLACK TOP RAKER, FLAQUITA S 338.4 PAIN CHRONIC SYNDROME 09/14/2008 FROY BLACK TOP RAKER, FLAQUITA S 346.90 MIGRAINE UNSPECIFIED WITHOUT INTRACTABLE MIGRAINE 09/14/2008 FROY BLACK TOP RAKER, FLAQUITA S 696.1 PSORIASIS 09/14/2008 BEAR DO, [...] RIZO APRN A 461.9 SINUSITIS ACUTE 12/23/2008 BERA DO, DANIELA K 461.9 SINUSITIS ACUTE 12/23/2008 BEAR DO, DANIELA K 461.9 SINUSITIS ACUTE 12/23/2008 BEAR DO, DANIELA K 461.9 SINUSITIS ACUTE 12/23/2008 BEAR DO, DANIELA K 461.9 SINUSITIS ACUTE 12/23/2008 BEAR DO, DANIELA K 461.9 SINUSITIS ACUTE 12/23/2008 FLAQUITA MCDUFFIE APRN 461.9 SINUSITIS ACUTE 12/23/2008 BEAR DO, DANIELA K 461.9 SINUSITIS ACUTE 12/31/2008 BEAR DO, [...] K 716.90 ARTHRITIS/ ARTHROPATHY, UNSPECIFIED 12/31/2008 FROY BLACK TOP RAKER, FLAQUITA S 472.0 RHINITIS 12/31/2008 FROY BLACK TOP RAKER, FLAQUITA S 716.90 ARTHRITIS/ ARTHROPATHY, UNSPECIFIED 12/31/2008 [...] MD.90 ARTHRITIS/ ARTHROPATHY, UNSPECIFIED 12/31/2008 BEAR DO, ADNIELA K 472.0 RHINITIS 12/31/2008 BEAR DO, DANIELA [...] K 716.90 ARTHRITIS/ ARTHROPATHY, UNSPECIFIED 12/31/2008 RAJMARANDAE BLACK TOP RAKER, ROSA A 472.0 RHINITIS 12/31/2008 KATIEE BLACK TOP RAKER, ROSA A 716.90 ARTHRITIS/ ARTHROPATHY, UNSPECIFIED 12/31/2008 [...] K 716.90 ARTHRITIS/ ARTHROPATHY, UNSPECIFIED 12/31/2008 FROY BLACK TOP RAKER, FLAQUITA S 472.0 RHINITIS 12/31/2008 FROY BLACK TOP RAKER, FLAQUITA S 716.90 ARTHRITIS/ ARTHROPATHY, UNSPECIFIED 12/31/2008 [...] DO, DANIELA K 786.2 COUGH 01/09/2009 FROY BLACK TOP RAKER, FLAQUITA S 786.2 COUGH 01/09/2009 BEAR DO, [...] 401.1 ESSENTIAL HYPERTENSION BENIGN 04/26/2009 BEAR DO, DAINELA K 401.1 ESSENTIAL HYPERTENSION BENIGN 04/26/2009 BEAR DO, DANIELA K 401.1 ESSENTIAL HYPERTENSION BENIGN 04/26/2009 FLAQUITA MCDUFFIE APRN 401.1 ESSENTIAL HYPERTENSION BENIGN 04/26/2009 BEAR DO, DANIELA K 401.1 ESSENTIAL HYPERTENSION BENIGN 04/26/2009 BEAR DO, DANIELA K 401.1 ESSENTIAL HYPERTENSION BENIGN 04/26/2009 BAER DO, DANIELA K 401.1 ESSENTIAL HYPERTENSION BENIGN [...] 401.1 ESSENTIAL HYPERTENSION BENIGN 04/26/2009 BEAR DO, DANEILA K 401.1 ESSENTIAL HYPERTENSION BENIGN 04/26/2009 WESTON MARINA PA-C 401.1 ESSENTIAL HYPERTENSION BENIGN 04/26/2009 BEAR DO, DANIELA K 401.1 ESSENTIAL HYPERTENSION BENIGN 04/26/2009 BEAR DO, DANIELA K 401.1 ESSENTIAL HYPERTENSION BENIGN 04/26/2009 BEAR DO, DANIELA K 401.1 ESSENTIAL HYPERTENSION BENIGN 04/26/2009 RSOA RIZO APRN A 401.1 ESSENTIAL HYPERTENSION BENIGN [...] 401.1 ESSENTIAL HYPERTENSION BENIGN 06/26/2009 BEAR DO, DANIELA K 477.9 RHINITIS [...] DO, DANIELA K 477.9 RHINITIS 06/26/2009 FROY BLACK TOP RAKER FLAQUITA S 477.9 RHINITIS 06/26/2009 BEAR DO, [...] BEAR DO, DANIELA K 784.0 HEADACHE 08/21/2009 VASQEUZ PAZ MD 784.0 HEADACHE 08/21/2009 BEAR DO, [...] K 272.4 HYPERLIPIDEMIA HYPERLIPOPROTEINEMIAS (Old Classification) 09/22/2009 BERA DO, DANIELA K 270.7 Hyperglycemia 09/22/2009 BEAR [...] 272.4 HYPERLIPIDEMIA HYPERLIPOPROTEINEMIAS (Old Classification) 09/22/2009 FROY BLACK TOP RAKER, FLAQUITA S 270.7 Hyperglycemia 09/22/2009 FROY BLACK TOP RAKER, FLAQUITA S 272.4 HYPERLIPIDEMIA HYPERLIPOPROTEINEMIAS (Old Classification) [...] 272.4 HYPERLIPIDEMIA HYPERLIPOPROTEINEMIAS (Old Classification) 09/22/2009 RAJOTTE BLACK TOP RAKER, ROSA A 270.7 Hyperglycemia 09/22/2009 RAJOTTE BLACK TOP RAKER, ROSA A 272.4 HYPERLIPIDEMIA HYPERLIPOPROTEINEMIAS (Old Classification) [...] 272.4 HYPERLIPIDEMIA HYPERLIPOPROTEINEMIAS (Old Classification) 09/22/2009 FROY BLACK TOP RAKER, FLAQUITA S 270.7 Hyperglycemia 09/22/2009 FROY BLACK TOP RAKER, FLAQUITA S 272.4 HYPERLIPIDEMIA HYPERLIPOPROTEINEMIAS (Old Classification) [...] DANIELA K 250.00 DIABETES MELLITUS 11/21/2009 FROY BLACK TOP RAKER, FLAQUITA S 250.00 DIABETES MELLITUS 11/21/2009 BEAR [...] joint pain, localized in the shoulder 05/08/2010 EBAR DO, DANIELA K 719.41 joint pain, localized [...] (3 Yrs And Above, Im) 03/06/2011 DANIELA BAER DO K V58.69 taking high-risk medication 03/06/2011 [...] K V58.69 taking high-risk medication 03/06/2011 FROY BLACK TOP RAKER, FLAQUITA S 216.9 Pigmented Nevus 03/06/2011 FROY BLACK TOP RAKER, FLAQUITA S V04.81 Flu Dx (3 Yrs And Above, Im) 03/06/2011 FROY BLACK TOP RAKER, FLAQUITA S V58.69 taking high-risk medication 03/06/2011 [...] DO DANIELA K 216.9 Pigmented Nevus 03/06/2011 BAER DO DANIELA K V04.81 Flu Dx (3 [...] K V58.69 taking high-risk medication 03/06/2011 KATIEE BLACK TOP RAKER, ROSA A 216.9 Pigmented Nevus 03/06/2011 DARRIUS BLACK TOP RAKER, ROSA A V04.81 Flu Dx (3 Yrs And Above, Im) 03/06/2011 DARRIUS BLACK TOP RAKER ROSA A V58.69 taking high-risk medication 03/06/2011 [...] K V58.69 taking high-risk medication 03/06/2011 FROY BLACK TOP RAKER, FLAQUITA S 216.9 Pigmented Nevus 03/06/2011 FROY BLACK TOP RAKER, FLAQUITA S V04.81 Flu Dx (3 Yrs And Above, Im) 03/06/2011 FROY BLACK TOP RAKER, FLAQUITA S V58.69 taking high-risk medication 03/06/2011 [...] Soft Tissue And Skin 04/18/2011 FROY FLORENCE FLAQUITA S 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.2 Neoplasm Of Unspecified Nature Of [...] Gastritis And Gastroduodenitis (without Hemorrhage) 05/03/2011 FROY BLACK TOP RAKERFLAQUITA 535.50 Unspecified Gastritis And Gastroduodenitis (without Hemorrhage) [...] K V58.31 Wound Dressing 05/06/2011 BEAR DO, DAINELA K V58.31 Wound Dressing 05/06/2011 BEAR DO, [...] ROSA RIZO APRN V58.31 Wound Dressing 05/06/2011 BERA DO, DANIELA K V58.31 Wound Dressing 05/06/2011 [...] And Other Eczema Due To Solvents 06/17/2011 DANIEAL BEAR DO K 704.8 Other Specified Diseases [...] Of Hair And Hair Follicles 06/17/2011 FROY BLACK TOP RAKER, FLAQUITA S 692.2 Contact Dermatitis And Other Eczema Due To Solvents 06/17/2011 FROY BLACK TOP RAKER, FLAQUITA S 704.8 Other Specified Diseases Of [...] DANIELA K 780.52 INSOMNIA UNSPECIFIED 09/10/2011 FROY BLACK TOP RAKER, FLAQUITA S 493.90 ASTHMA UNSPECIFIED 09/10/2011 FROY BLACK TOP RAKER, FLAQUITA S 692.9 Contact Dermatitis And Other Eczema Unspecified Cause 09/10/2011 FROY BLACK TOP RAKER, FLAQUITA S 780.52 INSOMNIA UNSPECIFIED 09/10/2011 BEAR [...] DANIELA K 780.52 INSOMNIA UNSPECIFIED 09/10/2011 RAJOTTE BLACK TOP RAKER, ROSA A 493.90 ASTHMA UNSPECIFIED 09/10/2011 RAJOTTE BLACK TOP RAKER, ROSA A 692.9 Contact Dermatitis And Other Eczema Unspecified Cause 09/10/2011 RAJOTTE BLACK TOP RAKER, ROSA A 780.52 INSOMNIA UNSPECIFIED 09/10/2011 BEAR DO, DANIELA K 493.90 ASTHMA UNSPECIFIED 09/10/2011 BERA DO, DANIELA K 692.9 Contact Dermatitis And [...] DANIELA K 780.52 INSOMNIA UNSPECIFIED 09/10/2011 FROY BLACK TOP RAKER, FLAQUITA S 493.90 ASTHMA UNSPECIFIED 09/10/2011 FROY BLACK TOP RAKER, FLAQUITA S 692.9 Contact Dermatitis And Other Eczema Unspecified Cause 09/10/2011 FROY BLACK TOP RAKER, FLAQUITA S 780.52 INSOMNIA UNSPECIFIED 09/10/2011 BEAR [...] SKIN AND SUBCUTANEOUS TISSUE 09/23/2011 BEAR DO, DANEILA K 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 09/23/2011 BEAR DO, DANIELA K 702.19 Other Seborrheic Keratosis 09/23/2011 BEAR DO, DANIELA K 709.9 UNSPECIFIED DISORDER OF SKIN AND SUBCUTANEOUS TISSUE 09/23/2011 BEAR DO, DANIELA K 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 09/23/2011 FROY BLACK TOP RAKER FLAQUITA S 702.19 Other Seborrheic Keratosis 09/23/2011 FROY BLACK TOP RAKER FLAQUITA S 709.9 UNSPECIFIED DISORDER OF SKIN AND SUBCUTANEOUS TISSUE 09/23/2011 FROY BLACK TOP RAKER FLAQUITA S V10.83 PERSONAL HISTORY OF OTHER [...] OF OTHER MALIGNANT NEOPLASM OF SKIN 09/23/2011 BERA DO, DANIELA K 702.19 Other Seborrheic Keratosis [...] OTHER MALIGNANT NEOPLASM OF SKIN 09/23/2011 RAJMARANDAE BLACK TOP RAKER, ROSA A 702.19 Other Seborrheic Keratosis 09/23/2011 RAJOTTE BLACK TOP RAKER, ROSA A 709.9 UNSPECIFIED DISORDER OF SKIN AND SUBCUTANEOUS TISSUE 09/23/2011 KATIEE BLACK TOP RAKER, ROSA A V10.83 PERSONAL HISTORY OF OTHER [...] OTHER MALIGNANT NEOPLASM OF SKIN 09/23/2011 FROY BLACK TOP RAKER, FLAQUITA S 702.19 Other Seborrheic Keratosis 09/23/2011 FROY BLACK TOP RAKER, FLAQUITA S 709.9 UNSPECIFIED DISORDER OF SKIN AND SUBCUTANEOUS TISSUE 09/23/2011 FROY BLACK TOP RAKER FLAQUITA S V10.83 PERSONAL HISTORY OF OTHER [...] DISEASE OF THE SALIVARY GLANDS 01/02/2012 DARRIUS BLACK TOP RAKER, ROSA A 719.40 PAIN IN JOINT SITE [...] PAIN IN JOINT SITE UNSPECIFIED 01/02/2012 FROY BLACK TOP RAKERDARCIFLAQUITA S 527.9 UNSPECIFIED DISEASE OF THE SALIVARY GLANDS 01/02/2012 FROY BLACK TOP RAKER FLAQUITA S 719.40 PAIN IN JOINT SITE [...] DANIELA K 530.81 GERD 01/07/2012 BEAR DO, DAINELA K 530.81 GERD 01/07/2012 BEAR DO, DANIELA [...] (3 Yrs And Above, Im) 02/06/2012 FROY BLACK TOP RAKER, FLAQUITA S V03.82 Pcv-13 (prevnar) Dx 02/06/2012 FROY BLACK TOP RAKER, FLAQUITA S V04.81 Flu Dx (3 Yrs [...] (3 Yrs And Above, Im) 02/06/2012 DARRIUS BLACK TOP RAKER, ROSA A V03.82 Pcv-13 (prevnar) Dx 02/06/2012 KATIEE BLACK TOP RAKER, ROSA A V04.81 Flu Dx (3 Yrs [...] (3 Yrs And Above, Im) 02/06/2012 FROY BLACK TOP RAKER, FLAQUITA S V03.82 Pcv-13 (prevnar) Dx 02/06/2012 FROY BLACK TOP RAKER, FLAQUITA S V04.81 Flu Dx (3 Yrs [...] DANIELA K V05.8 ZOSTAVAX DX 04/16/2012 FROY BLACK TOP RAKER FLAQUITA S 782.0 DISTURBANCE OF SKIN SENSATION 04/16/2012 FROY BLACK TOP RAKER, FLAQUITA S 782.9 OTHER SYMPTOMS INVOLVING SKIN AND INTEGUMENTARY TISSUES 04/16/2012 FROY BLACK TOP RAKERKHUSHBUA S V05.8 ZOSTAVAX DX 04/16/2012 BEAR DO, [...] WESTON MARINA PA-C V05.8 ZOSTAVAX DX 04/16/2012 BEAR DO, DANIELA K 782.0 DISTURBANCE OF SKIN SENSATION 04/16/2012 BEAR DO, ADNIELA K 782.9 OTHER SYMPTOMS INVOLVING SKIN AND [...] DANIELA K V05.8 ZOSTAVAX DX 04/16/2012 KATIEE BLACK TOP RAKER, RSOA A 782.0 DISTURBANCE OF SKIN SENSATION 04/16/2012 KATIEE BLACK TOP RAKER, ROSA A 782.9 OTHER SYMPTOMS INVOLVING SKIN AND INTEGUMENTARY TISSUES 04/16/2012 RAJMARANDAE BLACK TOP RAKER, ROSA A V05.8 ZOSTAVAX DX 04/16/2012 BEAR [...] DANIELA K V05.8 ZOSTAVAX DX 04/16/2012 FROY BLACK TOP RAKER FLAQUITA S 782.0 DISTURBANCE OF SKIN SENSATION 04/16/2012 FROY BLACK TOP RAKER FLAQUITA S 782.9 OTHER SYMPTOMS INVOLVING SKIN AND INTEGUMENTARY TISSUES 04/16/2012 FROY BLACK TOP RAKER, FLAQUITA S V05.8 ZOSTAVAX DX 04/16/2012 BEAR [...] CERVICAL CANCER SCREENING (PAP SMEAR) 05/19/2012 FROY BLACK TOP RAKERDARCI JudgeNDA S E888.9 UNSPECIFIED ACCIDENTAL FALL 05/19/2012 FROY BLACK TOP RAKERDARCIFLAQUITA S V76.10 BREAST CANCER SCREENING 05/19/2012 FROY BLACK TOP RAKER FLAQUITA S V76.2 CERVICAL CANCER SCREENING (PAP [...] CERVICAL CANCER SCREENING (PAP SMEAR) 05/19/2012 KATIEE BLACK TOP RAKER ROSA A E888.9 UNSPECIFIED ACCIDENTAL FALL 05/19/2012 KATIEE BLACK TOP RAKER, ROSA A V76.10 BREAST CANCER SCREENING 05/19/2012 RAJOTTE BLACK TOP RAKER, ROSA A V76.2 CERVICAL CANCER SCREENING (PAP [...] CERVICAL CANCER SCREENING (PAP SMEAR) 05/19/2012 FROY BLACK TOP RAKER, FLAQUITA S E888.9 UNSPECIFIED ACCIDENTAL FALL 05/19/2012 FROY BLACK TOP RAKER, FLAQUITA S V76.10 BREAST CANCER SCREENING 05/19/2012 FROY BLACK TOP RAKERDARCI JudgeNDA S V76.2 CERVICAL CANCER SCREENING (PAP [...] DANIELA K 466.0 ACUTE BRONCHITIS 07/01/2012 FROY BLACK TOP RAKER, FLAQUITA S 461.9 SINUSITIS ACUTE 07/01/2012 FROY BLACK TOP RAKER, FLAQUITA S 466.0 ACUTE BRONCHITIS 07/01/2012 BEAR [...] DANIELA K 466.0 ACUTE BRONCHITIS 07/01/2012 RAJMARANDAE BLACK TOP RAKER, ROSA A 461.9 SINUSITIS ACUTE 07/01/2012 RAJOTTE BLACK TOP RAKER, ROSA A 466.0 ACUTE BRONCHITIS 07/01/2012 BEAR [...] DANIELA K 466.0 ACUTE BRONCHITIS 07/01/2012 FROY BLACK TOP RAKER, FLAQUITA S 461.9 SINUSITIS ACUTE 07/01/2012 FROY [...] BEAR DO, DANIELA K 791.0 PROTEINURIA 09/30/2012 BAER DO, DANIELA K E928.2 EXPOSURE TO VIBRATION [...] K E928.2 EXPOSURE TO VIBRATION 09/30/2012 FROY BLACK TOP RAKER, FLAQUITA S 276.51 DEHYDRATION 09/30/2012 FROY BLACK TOP RAKER, FLAQUITA S 356.9 UNSPECIFIED IDIOPATHIC PERIPHERAL NEUROPATHY 09/30/2012 FROY BLACK TOP RAKER, FLAQUITA S 791.0 PROTEINURIA 09/30/2012 FROY BLACK TOP RAKER, FLAQUITA S E928.2 EXPOSURE TO VIBRATION 09/30/2012 [...] K E928.2 EXPOSURE TO VIBRATION 09/30/2012 RAJMARANDAE BLACK TOP RAKER, ROSA A 276.51 DEHYDRATION 09/30/2012 RAJOTTE BLACK TOP RAKER, ROSA A 356.9 UNSPECIFIED IDIOPATHIC PERIPHERAL NEUROPATHY 09/30/2012 RAJOTTE BLACK TOP RAKER, ROSA A 791.0 PROTEINURIA 09/30/2012 RAJOTTE BLACK TOP RAKER, ROSA A E928.2 EXPOSURE TO VIBRATION 09/30/2012 [...] K E928.2 EXPOSURE TO VIBRATION 09/30/2012 FROY BLACK TOP RAKER, FLAQUITA S 276.51 DEHYDRATION 09/30/2012 FROY BLACK TOP RAKER, FLAQUITA S 356.9 UNSPECIFIED IDIOPATHIC PERIPHERAL NEUROPATHY 09/30/2012 FROY BLACK TOP RAKER, FLAQUITA S 791.0 PROTEINURIA 09/30/2012 FROY BLACK TOP RAKER, FLAQUITA S E928.2 EXPOSURE TO VIBRATION 09/30/2012 [...] DANIELA K 110.1 ONYCHOMYCOSIS 10/16/2012 BEAR DO, DANILEA K 735.0 HALLUX VALGUS (ACQUIRED) 10/16/2012 BEAR DO, DANIELA K 110.1 ONYCHOMYCOSIS 10/16/2012 BEAR DO, DANIELA K 735.0 HALLUX VALGUS (ACQUIRED) 10/16/2012 BEAR DO, DANIELA K 110.1 ONYCHOMYCOSIS 10/16/2012 BEAR DO, DANIELA K 735.0 HALLUX VALGUS (ACQUIRED) 10/16/2012 BAER DO, DANIELA K 110.1 ONYCHOMYCOSIS 10/16/2012 BEAR [...] K 735.0 HALLUX VALGUS (ACQUIRED) 10/16/2012 FROY BLACK TOP RAKER, FLAQUITA S 110.1 ONYCHOMYCOSIS 10/16/2012 FROY BLACK TOP RAKER, FLAQUITA S 735.0 HALLUX VALGUS (ACQUIRED) 10/16/2012 [...] K 735.0 HALLUX VALGUS (ACQUIRED) 10/16/2012 RAJMARANDAE BLACK TOP RAKER, ROSA A 110.1 ONYCHOMYCOSIS 10/16/2012 RAJOTTE BLACK TOP RAKER, ROSA A 735.0 HALLUX VALGUS (ACQUIRED) 10/16/2012 [...] K 735.0 HALLUX VALGUS (ACQUIRED) 10/16/2012 FROY BLACK TOP RAKER, FLAQUITA S 110.1 ONYCHOMYCOSIS 10/16/2012 FROY BLACK TOP RAKER, FLAQUITA S 735.0 HALLUX VALGUS (ACQUIRED) 10/16/2012 [...] DANIELA K 788.41 URINARY FREQUENCY 10/20/2012 FROY BLACK TOP RAKER FLAQUITA S 599.0 URINARY TRACT INFECTION SITE NOT SPECIFIED 10/20/2012 FROY BLACK TOP RAKER FLAQUITA S 788.41 URINARY FREQUENCY 10/20/2012 BEAR [...] DANIELA K 788.41 URINARY FREQUENCY 10/20/2012 FROY BLACK TOP RAKER, FLAQUITA S 599.0 URINARY TRACT INFECTION SITE NOT SPECIFIED 10/20/2012 FROY BLACK TOP RAKER, FLAQUITA S 788.41 URINARY FREQUENCY 10/20/2012 BEAR [...] cataracts unspecified, right, left or both 07/22/2013 EBAR DO, DANIELA K 367.0 HYPERMETROPIA 07/22/2013 BEAR DO, DANIELA K 367.20 ASTIGMATISM UNSPECIFIED 07/22/2013 BEAR DO, DANIELA K 367.4 PRESBYOPIA 07/22/2013 WESTON MARINA PA-C 362.50 MACULAR DEGENERATION (SENILE) OF [...] DO, DANIELA K 367.4 PRESBYOPIA 07/22/2013 RAJOTTE BLACK TOP RAKER, ROSA A 362.50 MACULAR DEGENERATION (SENILE) OF RETINA UNSPECIFIED 07/22/2013 RAJOTTE BLACK TOP RAKER, ROSA A 366.10 cataracts unspecified, right, left or both 07/22/2013 RAJOTTE BLACK TOP RAKER, ROSA A 367.0 HYPERMETROPIA 07/22/2013 RAJOTTE BLACK TOP RAKER, ROSA A 367.20 ASTIGMATISM UNSPECIFIED 07/22/2013 RAJOTTE BLACK TOP RAKER, ROSA A 367.4 PRESBYOPIA 07/22/2013 BEAR DO, [...] DEGENERATION (SENILE) OF RETINA UNSPECIFIED 07/22/2013 FROY BLACK TOP RAKER, FLAQUITA S 366.10 cataracts unspecified, right, left or both 07/22/2013 FROY BLACK TOP RAKERDARCIFLAQUITA S 367.0 HYPERMETROPIA 07/22/2013 FROY BLACK TOP RAKER, FLAQUITA S 367.20 ASTIGMATISM UNSPECIFIED 07/22/2013 FROY BLACK TOP RAKER, FLAQUITA S 367.4 PRESBYOPIA 07/22/2013 BEAR DO, [...] DANIELA K V04.81 FLU SHOT 02/08/2014 RAJOTTE BLACK TOP RAKER, ROSA A 782.3 EDEMA 02/08/2014 RAJOTTE BLACK TOP RAKER, ROSA A V04.81 FLU SHOT 02/08/2014 BEAR [...] DANIELA K V04.81 FLU SHOT 02/08/2014 FROY BLACK TOP RAKER, FLAQUITA S 782.3 EDEMA 02/08/2014 FROY BLACK TOP RAKER, FLAQUITA S V04.81 FLU SHOT 02/08/2014 BEAR [...] LOCALIZED SWELLING MASS OR LUMP 02/18/2014 RAJOTTE BLACK TOP RAKER, ROSA A 782.2 LOCALIZED SWELLING MASS OR [...] DO, DANIELA K 388.70 OTALGIA 04/20/2014 FROY BLACK TOP RAKER, FLAQUITA S 381.81 EUSTACHIAN TUBE DYSFUNCTION 04/20/2014 FROY BLACK TOP RAKER, FLAQUITA S 388.70 OTALGIA 04/20/2014 BEAR DO, DANIELA K 381.81 EUSTACHIAN TUBE DYSFUNCTION 04/20/2014 BEAR DO, DANIELA K 388.70 OTALGIA 05/02/2014 BEAR DO, DANIELA K 729.5 PAIN IN LIMB 05/02/2014 BEAR DO, DANIELA K 729.5 PAIN IN LIMB 05/02/2014 BEAR DO, DANIELA K 729.5 PAIN IN LIMB 05/02/2014 BEAR DO, DANIELA K 729.5 PAIN IN LIMB 05/02/2014 BEAR DO, DANIELA K 729.5 PAIN IN LIMB 05/02/2014 FORY BLACK TOP RAKER, FLAQUITA S 729.5 PAIN IN LIMB 05/02/2014 [...] V15.88 PERSONAL HISTORY OF FALL 06/03/2014 FROY BLACK TOP RAKER FLAQUITA S 338.11 PAIN - ACUTE PAIN DUE TO TRAUMA 06/03/2014 FROY BLACK TOP RAKER FLAQUITA S 380.4 IMPACTED CERUMEN 06/03/2014 FROY BLACK TOP RAKER FLAQUITA S 472.0 CHRONIC RHINITIS 06/03/2014 FROY BLACK TOP RAKER FLAQUITA S 719.45 PAIN IN JOINT INVOLVING PELVIC REGION AND THIGH 06/03/2014 FROY BLACK TOP RAKER, FLAQUITA S V15.88 PERSONAL HISTORY OF FALL [...] K 787.01 NAUSEA WITH VOMITING 06/30/2014 FROY BLACK TOP RAKER FLAQUITA S 386.10 VERTIGO, PERIPHERAL UNSPECIFIED 06/30/2014 FROY BLACK TOP RAKER FLAQUITA S 787.01 NAUSEA WITH VOMITING 06/30/2014 BEAR DO, DANIELA K 386.10 VERTIGO, PERIPHERAL UNSPECIFIED 06/30/2014 DANIELA BEAR DO K 787.01 NAUSEA WITH VOMITING 07/01/2014 [...] Ot M46.06 SPINAL ENTHESOPATHY, LUMBAR REGION 01/15/2018 NADIYA CARMONA SLIP COVER OPERATOR Ot M48.02 SPINAL STENOSIS, CERVICAL REGION 01/15/2018 NADIYA CARMONA SLIP COVER OPERATOR Ot M48.061 SPINAL STENOSIS, LUMBAR REGION WITHOUT N 01/15/2018 NADIYA CARMONA SLIP COVER OPERATOR Ot M50.122 CERVICAL DISC DISORDER AT C5-C6 LEVEL [place] 01/15/2018 NADIYA CARMONA SLIP COVER OPERATOR Ot M51.16 INTERVERTEBRAL DISC DISORDERS W RADICULO [...] Procedures Code Description [place] [address] ROUTINE VENIPUNCTURE 03/20/2012 63157 A1C (IN-HOUSE) 03/20/2012 02717 CMP 03/20/2012 [id number] GFR CALC (RESULT ONLY) 03/20/2012 88600 MAMMOGRAM, SCREENING 05/19/2012 00470 PAP SMEAR 05/19/2012 Q0091 PAP SMEAR OBTAIN SMEAR 05/19/2012 38849 CULTURE UROGENITAL 05/20/2012 46648 ROUTINE VENIPUNCTURE 06/19/2012 91651 A1C (IN-HOUSE) 06/19/2012 06724 CMP 06/19/2012 76965 LIPID PANEL 06/19/2012 [id number] GFR CALC (RESULT ONLY) 06/19/2012 64390 ROUTINE VENIPUNCTURE 09/30/2012 22895 A1C (IN-HOUSE) 09/30/2012 23758 MICRO ALBUMIN-IN HOUSE 09/30/2012 97700 CMP 09/30/2012 03749 MICROALBUMIN 09/30/2012 96816 A1C (IN-HOUSE) 01/04/2013 01745 CMP 01/04/2013 14394 LIPID PANEL 01/04/2013 51336 DEBRIDE NAIL 1-5 01/22/2013 J0696 ROCEPHIN INJ 01/22/2013 93733 THERAPUTIC INJ SQ/IM 01/22/2013 21762 THERAPUTIC INJ SQ/IM 01/25/2013 J0696 ROCEPHIN INJ 01/25/2013 56353 ROUTINE VENIPUNCTURE 05/17/2013 86353 MICRO ALBUMIN-IN HOUSE 05/17/2013 36284 A1C (IN-HOUSE) 05/17/2013 72848 CMP 05/17/2013 2000F BLOOD PRESSURE CHECK 07/01/2013 18797 DEBRIDE NAIL >6 07/09/2013 54865 ROUTINE VENIPUNCTURE 07/19/2013 OPHTHALMJohn CLAUDIARADHA 07/19/20138F FOOT EXAM PERFORMED 07/19/2013 01551 LIPID PANEL 07/19/2013 49056 ROUTINE VENIPUNCTURE 08/30/2013 24367 CMP 08/30/2013 72527 A1C (IN-HOUSE) 08/30/2013 83422 ROUTINE VENIPUNCTURE 10/04/2013 [id number] GFR CALC (RESULT ONLY) 10/04/2013 56821 CMP 10/04/2013 15446 CMP 12/10/2013 99197 MICRO ALBUMIN-IN HOUSE 12/10/2013 75200 A1C (IN-HOUSE) 12/10/2013 08359 ROUTINE VENIPUNCTURE 12/10/2013 27349 ROUTINE VENIPUNCTURE 02/08/2014 G0008 FLU ADMINISTRATION ( MEDICARE ONLY) 02/08/2014 27404 US LOWER EXTREMITY ULTRASOUND 02/08/2014 54133 LIPID PANEL 02/08/[address] EXTREMITY, LOWER, LEFT W / AND W/O CONTRAST 02/18/2014 00941 ROUTINE VENIPUNCTURE 02/23/2014 49213 LYME EIA W/WEST BLOT 02/23/[address] HEAD/BRAIN W/O DYE 03/14/2014 39915 ROUTINE VENIPUNCTURE 05/02/2014 15147 US SOFT TISSUE (SPECIFY LOCATION) 05/02/2014 20687 A1C (IN-HOUSE) 05/02/2014 4597187 GFR CALC (RESULT ONLY) 05/02/2014 96772 CMP 05/02/2014 J2550 PHENERGAN INJECTION UP TO 50 MG 06/30/2014 08540 THERAPUTIC INJ SQ/IM 06/30/2014 69299 GLUCOSE FINGER STICK 06/30/2014 80369 ROUTINE VENIPUNCTURE 08/12/2014 06206 A1C (IN-HOUSE) 08/12/2014 9250094 GFR CALC (RESULT ONLY) 08/12/2014 80045 CMP 08/12/2014 34347 LIPID PANEL 08/12/2014 Results Test Result Range [...] blood basophil count (count/volume) 0.0 10*3/uL 0.0-0.1 Comprehensive metabolic panel - 02/13/18 03:44 Serum or plasma sodium measurement (moles/volume) 133 mmol/L 135-145 Serum or plasma potassium measurement (moles/volume) 3.0 mmol/L 3.6-5.0 Serum or plasma chloride measurement (moles/volume) 93 mmol/L 98-107 Carbon dioxide 28 mmol/L 21-32 Serum or plasma anion gap determination (moles/volume) 12 mmol/L 5-14 Serum or plasma urea nitrogen measurement (mass/volume) 9 mg/dL 7-18 Serum or plasma creatinine measurement (mass/volume) 0.71 mg/dL 0.60-1.30 Serum or plasma urea nitrogen/creatinine mass ratio 13 NRG Serum or plasma creatinine measurement with calculation of estimated glomerular filtration rate > NRG Serum or plasma glucose measurement (mass/volume) 171 mg/dL 70-105 Serum or plasma calcium measurement (mass/volume) 9.7 mg/dL 8.5-10.1 Serum or plasma total bilirubin measurement (mass/volume) 0.6 mg/dL 0.1-1.0 Serum or plasma alkaline phosphatase measurement (enzymatic activity/volume) 54 U/L 40-136 Serum or plasma aspartate aminotransferase measurement (enzymatic activity/ volume) 14 U/L 5-34 Serum or plasma alanine aminotransferase measurement (enzymatic activity/volume ) 19 U/L 0-55 Serum or plasma protein measurement (mass/volume) 5.5 g/dL 6.4-8.2 Serum or plasma albumin measurement (mass/volume) 3.9 g/dL 3.2-4.5 CALCIUM CORRECTED 9.8 mg/dL 8.5-10.1 Serum or plasma C reactive protein measurement (mass/volume) - 02/13/18 03:44 Serum or plasma C reactive protein measurement (mass/volume) 12.00 mg/dL 0.00-0.50 Serum or plasma acetaminophen measurement (mass/volume) - 02/13/18 03:44 Serum or plasma acetaminophen measurement (mass/volume) < ug/mL 10-30 Serum or plasma ethanol measurement (mass/volume) - 02/13/18 03:44 Serum or plasma ethanol measurement (mass/volume) < mg/dL <10 Capillary blood glucose measurement by glucometer (mass/volume) - 02/13/18 03: 48 Capillary blood glucose measurement by glucometer (mass/volume) 160 mg/dL 70-110 Complete urinalysis with reflex to culture - 02/13/18 04:00 Urine color determination ARTUR NRG Urine clarity determination CLEAR NRG Urine pH measurement by test strip 7 5-9 Specific gravity of urine by test strip 1.010 1.016- 1.022 Urine protein assay by test strip, semi-quantitative 1+ NEGATIVE Urine glucose detection by automated test strip 2+ NEGATIVE Erythrocytes detection in urine sediment by light microscopy NEGATIVE NEGATIVE Urine ketones detection by automated test strip NEGATIVE NEGATIVE Urine nitrite detection by test strip NEGATIVE NEGATIVE Urine total bilirubin detection by test strip NEGATIVE NEGATIVE Urine urobilinogen measurement by automated test strip (mass/volume) NORMAL NORMAL Urine leukocyte esterase detection by dipstick NEGATIVE NEGATIVE Automated urine sediment erythrocyte count by microscopy (number/high power field) NONE NRG Automated urine sediment leukocyte count by microscopy (number/high power field ) NONE NRG Bacteria detection in urine sediment by light microscopy TRACE NRG Squamous epithelial cells detection in urine sediment by light microscopy RARE NRG Crystals detection in urine sediment by light microscopy NONE NRG Casts detection in urine sediment by light microscopy PRESENT NRG Mucus detection in urine sediment by light microscopy MODERATE NRG Complete urinalysis with reflex to culture NO NRG Hyaline casts detection in urine sediment by light microscopy RARE NRG Urine drug screening test - 02/13/18 04:00 Urine phencyclidine detection by screening method NEGATIVE NEGATIVE Urine benzodiazepines detection by screening method NEGATIVE NEGATIVE Urine cocaine detection NEGATIVE NEGATIVE Urine amphetamines detection by screening method NEGATIVE NEGATIVE Urine methamphetamine detection by screening method NEGATIVE NEGATIVE Urine cannabinoids detection by screening method NEGATIVE NEGATIVE Urine opiates detection by screening method NEGATIVE NEGATIVE Urine barbiturates detection NEGATIVE NEGATIVE Screening urine tricyclic antidepressants detection POSITIVE NEGATIVE Urine methadone detection by screening method NEGATIVE NEGATIVE Urine oxycodone detection POSITIVE NEGATIVE Urine propoxyphene detection NEGATIVE NEGATIVE Encounters ACCT No. Visit Date/Time Discharge Status Pt. Type Provider Facility Loc./Unit Complaint [id number] 08/12/2014 11:16:00 08/12/2014 23:59:59 CLS Outpatient BEAR DO, DANIELA Veras [id number] 07/15/2014 10:20:00 07/15/2014 23:59:59 CLS Outpatient BEAR DO, DANIELA Veras [id number] 07/01/2014 10:47:00 07/01/2014 23:59:59 CLS Outpatient BEAR DODANIELA [id number] 06/30/2014 17:59:00 06/30/2014 23:59:59 CLS Outpatient FLAQUITA MCDUFFIE APRN [id number] 06/03/2014 10:44:00 06/03/2014 23:59:59 CLS Outpatient BEAR DO, DANIELA Veras [id number] 05/02/2014 11:20:00 05/02/2014 23:59:59 CLS Outpatient BEAR DO, DANIELA Veras [id number] 05/02/2014 11:20:00 05/02/2014 23:59:59 CLS Outpatient BEAR DO, DANIELA Veras [id number] 04/20/2014 15:26:00 04/20/2014 23:59:59 CLS Outpatient ROSA RIZO APRN [id number] 03/18/2014 13:20:00 03/18/2014 23:59:59 CLS Outpatient BEAR DODANIELA [id number] 03/14/2014 10:50:00 03/14/2014 23:59:59 CLS Outpatient BEAR DO, DANIELA Veras [id number] 03/11/2014 16:24:00 03/11/2014 23:59:59 CLS Outpatient BEAR DODANIELA [id number] 02/23/2014 09:25:00 02/23/2014 23:59:59 CLS Outpatient WESTON MARINA PA-C [id number] 02/08/2014 08:53:00 02/08/2014 23:59:59 CLS Outpatient BEAR DO, DANIELA Rito [id number] 12/10/2013 09:05:00 12/10/2013 23:59:59 CLS Outpatient BEAR DO, DANIELA K [id number] 12/10/2013 09:05:00 12/10/2013 23:59:59 CLS Outpatient BEAR DO, DANIELA Rito [id number] 11/19/2013 14:06:00 11/19/2013 23:59:59 CLS Outpatient VASQUEZ PAZ MD [id number] 10/04/2013 11:49:00 10/04/2013 23:59:59 CLS Outpatient BEAR DODANIELA [id number] 09/17/2013 15:58:00 09/17/2013 23:59:59 CLS Outpatient BEAR DODANIELA [id number] 09/03/2013 10:01:00 09/03/2013 23:59:59 CLS Outpatient VASQUEZ PAZ MD [id number] 08/30/2013 15:21:00 08/30/2013 23:59:59 CLS Outpatient BEAR DODANIELA [id number] 07/26/2013 09:30:00 07/26/2013 23:59:59 CLS Outpatient BEAR DODANIELA [id number] 07/19/2013 09:50:00 07/19/2013 23:59:59 CLS Outpatient BEAR DO, DANIELA Veras [id number] 07/09/2013 09:57:00 07/09/2013 23:59:59 CLS Outpatient BEAR DODANIELA [id number] 07/09/2013 09:57:00 07/09/2013 23:59:59 CLS Outpatient BEAR DO, DANIELA Veras [id number] 07/01/2013 12:35:00 07/01/2013 23:59:59 CLS Outpatient BEAR DODANIELA [id number] 06/18/2013 08:08:00 06/18/2013 23:59:59 CLS Outpatient BEAR DODANIELA [id number] 05/17/2013 10:23:00 05/17/2013 23:59:59 CLS Outpatient BEAR DODANIELA [id number] 03/25/2013 10:20:00 03/25/2013 23:59:59 CLS Outpatient FROY BLACK TOP RAKER, FLAQUITA S [id number] 02/22/2013 17:07:00 02/22/2013 23:59:59 CLS Outpatient BEAR DODANIELA Rito [id number] 02/18/2013 08:28:00 02/18/2013 23:59:59 CLS Outpatient BEAR DO, DANIELA Veras [id number] 02/15/2013 14:08:00 02/15/2013 23:59:59 CLS Outpatient BEAR DOPURVIManny Veras [id number] 02/11/2013 10:28:00 02/11/2013 23:59:59 CLS Outpatient BEAR DO, DANIELA Rito [id number] 02/08/2013 09:48:00 02/08/2013 23:59:59 CLS Outpatient BEAR DODANIELA [id number] 02/04/2013 09:24:00 02/04/2013 23:59:59 CLS Outpatient BEAR DODANIELA [id number] 02/01/2013 10:36:00 02/01/2013 23:59:59 CLS Outpatient BEAR DODANIELA [id number] 01/28/2013 09:21:00 01/28/2013 23:59:59 CLS Outpatient BEAR DO, DANIELA Veras [id number] 01/25/2013 16:28:00 01/25/2013 23:59:59 CLS Outpatient BEAR DODANIELA [id number] 01/22/2013 14:48:00 01/22/2013 23:59:59 CLS Outpatient BEAR DODANIELA [id number] 01/22/2013 07:53:00 01/22/2013 23:59:59 CLS Outpatient BEAR DODANIELA [id number] 07/01/2012 17:43:00 07/01/2012 23:59:59 CLS Outpatient BEAR DODANIELA [id number] 06/19/2012 08:44:00 06/19/2012 23:59:59 CLS Outpatient BEAR DODANIELA [id number] 05/19/2012 10:58:00 05/19/2012 23:59:59 CLS Outpatient BEAR DODANIELA [id number] 04/16/2012 08:11:00 04/16/2012 23:59:59 CLS Outpatient BEAR DODANIELA [id number] 03/20/2012 09:01:00 03/20/2012 23:59:59 CLS Outpatient BEAR DODANIELA [id number] 02/20/2012 09:01:00 02/20/2012 23:59:59 CLS Outpatient BEAR DODANIELA [id number] 01/04/2013 11:59:00 Document Registration [id number] 11/30/2012 16:34:00 Document Registration [id number] 10/20/2012 10:59:00 Document Registration [id number] 10/16/2012 07:51:00 Document Registration [id number] 09/30/2012 08:51:00 Document Registration [id number] 10/04/2014 19:08:30 ACT Document Registration [id number] 10/19/2017 13:00:00 10/19/2017 23:59:59 CLS Outpatient NADIYA CARMONA APRN [facility] [id number] 10/01/2017 12:40:00 Document Registration [id number] 10/22/2016 08:06:00 Document Registration [id number] 01/14/2018 10:02:00 01/14/2018 23:59:59 CLS Outpatient NADIYA CARMONA [facility] RAD LUMBAR NEURITIS [id number] 01/12/2018 08:41:00 01/12/2018 23:59:59 CLS Preadmit NADIYA CARMONA [facility] RAD CERVICAL NEURITIS [id number] 08/16/2015 13:08:00 08/16/2015 23:59:59 CLS Outpatient MARIEL SCHWARTZ MD [facility] RAD LUMBAR RADICULOPATHY [id number] 10/04/2014 19:08:00 10/04/2014 21:02:00 DIS Emergency CARINE DOGENA K [facility] ER BLOODSUGAR ISSUES [id number] 05/06/2014 13:41:00 05/06/2014 23:59:59 CLS Outpatient WESTON LUNA [facility] RAD SMALL PALPABLE TENDER MASS RT THIGH [id number] 03/14/2014 13:45:00 03/14/2014 23:59:59 CLS Outpatient WESTON LUNA [facility] RAD BELLS PALSY [id number] 03/08/2014 12:59:00 03/08/2014 23:59:59 CLS Outpatient STEVEN YEH, PERIAPATJESUSITA S [facility] RAD LUMBAR RADICULOPATHY [id number] 02/24/2014 12:41:00 02/24/2014 23:59:59 CLS Outpatient WESTON LUNA [facility] RAD 3.5 CM ISOECHONIC MASS SEEN ON US OF MID THIGH [id number] 02/15/2014 13:07:00 02/15/2014 23:59:59 CLS Outpatient WESTON LUNA [facility] RAD EDEMA [id number] 08/06/2013 10:38:00 08/06/2013 16:00:00 DIS Outpatient BREANNE DPM, [place] Q [facility] BUNION LEFT FOOT [id number] 08/02/2013 12:38:00 08/02/2013 23:59:59 CLS Outpatient BREANNE DPM [place] Q [facility] PREOP BUNION LEFT FOOT [id number] 02/13/2018 03:54:00 Document Registration [id number] 05/27/2012 09:22:00 Document Registration [id number] 10/31/2009 07:28:00 Document Registration [id number] 04/04/2016 18:05:00 Document Registration
[2018-02-13] MEDS ORDERED: ONDANSETRON 4 MG/2 ML (SDV) Z0FRAN IV PRN (06:30)
[2018-02-13] MEDS ORDERED: ACETAMINOPHEN 500 MG TAB (TYLENOL) PO PRN (06:30)
[2018-02-13] MEDS: NS W/KCL 40 MEQ/L 1,000 ML IV SCH ×2 (06:35→16:02)
--- NOTE | 2018-02-13 06:43 | Pulmonary Consultation ---
History of Present Illness History of Present Illness Date of Consultation 02/13/18 06:35 Time Seen by Provider: 06:35 Date of Admission History of Present Illness 67YO who was recently at [facility] s/p neck surgery presented to ED via EMS after family found her in her chair at 3:30 and unable to awaken her. EMS also had difficulty arousing her. Pupils were pinpoint upon EMS arrival. Upon ED arrival pt was awake and responsive. PT is on oxycodone and baclofen at home. Last known dose was 5pm yesterday. Sp02 was in the 80's per EMS and is now requiring 2 liters of oxygen via a NC. Allergies and Home Medications Allergies Coded Allergies: glipizide (Unverified Allergy, Unknown, DOESN'T REMEMBER REACTION, 08/02/13 ) acetaminophen (Unverified Adverse Reaction, Mild, HALLUCINATIONS, 08/06/13) butorphanol (Unverified Adverse Reaction, Mild, HALLUCINATIONS, 08/06/13) oxycodone (Unverified Adverse Reaction, Mild, HALLUCINATIONS, 08/06/13) Home Medications Amitriptyline HCl 150 Mg Tablet, 150 MG PO HS, (Reported) Amlodipine Besylate 5 Mg Tablet, 5 MG PO BID, (Reported) Amoxicillin/Potassium Clav 1 Each Tablet, 1 EACH PO BID Prescribed by: CHACE NGUYEN on 02/16/181006 Aspirin 81 Mg Tablet.dr, 81 MG PO DAILY, (Reported) Atenolol 100 Mg Tablet, 100 MG PO HS, (Reported) Baclofen 10 Mg Tablet, 10 MG PO TID PRN for MUSCLE SPASMS, (Reported) Betamethasone/Propylene Glyc 15 Gm Cream..g., TOP BID PRN for SKIN, (Reported) Citalopram Hydrobromide 20 Mg Tablet, 20 MG PO DAILY, (Reported) Ezetimibe/Simvastatin 1 Each Tablet, 1 TAB PO DAILY, (Reported) Gabapentin 300 Mg Capsule, 300 MG PO HS, (Reported) Gabapentin 300 Mg Capsule, 600 MG PO DAILY, (Reported) TAKES 2 (300MG) CAPSULES Guaifenesin 600 Mg Tab.er.12h, 600 MG PO BID Prescribed by: CHACE NGUYEN on 02/16/18 1007 Insulin Detemir 100 Unit/1 Ml Insuln.pen, 25 UNITS SC BID, (Reported) Maltodextrin/Xanthan Gum 1 Each Powd.pack, 1 EACH PO 5XD Prescribed by: CHACE NGUYEN on 02/16/18 1008 Oxycodone HCl/Acetaminophen 1 Each Tablet, 1 TAB PO Q4H, (Reported) Past Itixmxz-Mzncvb-Ltwimk Hx Patient Social History Alcohol Use: Denies Use Recreational Drug Use: No Smoking Status: Never a Smoker Recent Foreign Travel: No Contact w/Someone Who Travel: No Recent Infectious Disease Expo: No Recent Hopitalizations: Yes (ANTERIOR CERVICAL DISKECTOMY AND FUSION) Physical Abuse: No Sexual Abuse: No Mistreated: No Fear: No Immunizations Up To Date Date of Pneumonia Vaccine: Feb 06, 2012 Seasonal Allergies Seasonal Allergies: Yes Past Medical History Surgeries: Yes (D&C, BILATERAL ELBOWS, BILATERAL CARPAL TUNNEL, R ANKLE FX /) Adenoidectomy, Hysterectomy, Oophorectomy, Orthopedic, Tonsillectomy Respiratory: No Cardiac: Yes High Cholesterol, Hypertension Neurological: Yes Headaches /Migraines, Neuropathy 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 ORTHO SURGERIES) Arthritis Endocrine: Yes Diabetes, Insulin dep Cancer: No Psychosocial: Yes Anxiety Integumentary: No Blood Disorders: Yes (RMSF, TICK FEVER) Review of Systems Time Seen by Provider: 08:37 Sepsis Event Evaluation Height, Weight, BMI Height: 5'3" Weight: 130lbs. oz. 58.165597vk; 23.03 BMI Method:Stated Exam Exam Vital Signs Date Time Temp Pulse Resp B/P (MAP) Pulse Ox O2 Delivery O2 Flow Rate FiO2 02/13/18 06:20 Nasal Cannula 2.00 02/13/18 05:55 96.8 66 17 135/79 (97) 96 2.00 02/13/18 03:40 96.8 66 17 125/75 (92) 96 Nasal Cannula 2.00 I & O 02/13/18 07:00 Intake Total 1000 ml Balance 1000 ml Height & Weight Height: 5'3" Weight: 130lbs. oz. 58.968708es; 23.03 BMI Method:Stated General Appearance: No Apparent Distress, WD/WN HEENT: PERRL/EOMI, TMs Normal, Normal ENT Inspection, Pharynx Normal, Moist Mucous Membranes Neck: Non Tender, Other Respiratory: Chest Non Tender, Lungs Clear, Normal Breath Sounds, No Accessory Muscle Use, No Respiratory Distress, Other Cardiovascular: Regular Rate, Rhythm, No Edema Capillary Refill: Less Than 3 Seconds Extremity: Normal Capillary Refill, Normal Inspection, Non Tender, No Calf Tenderness, No Pedal Edema Neurologic/Psychiatric: Oriented x3, Other Skin: Normal Color, Warm/Dry Results Lab Laboratory Tests 02/13/18 03:44 Assessment/Plan Assessment/Plan recent anterior cervical discectomy and fusion at [facility]02/11/18 Bilateral pneumonia with Hypoxia probable aspiration and mucous plugging -No Fever or leukocytosis -Currently on Rocephin and Azithromycin (PCN is listed as an allergy however pt denies) -Will change Abx to Zosyn if pt is not allergic to PCN. -PT may need bronchoscopy secondary to mucous plugging and atelectasis. -CTA reviewed Hypoxia -Check CTA Dysphagia -PT is on a dysphagia diet now ELIEL RODRIGUEZ DO Feb 13, 2018 06:43
[2018-02-13] MEDS ORDERED: FLU QUADRIvalent (5+ YOA) 2018-2019 (AFLURIA) 0.5 ML IM ONE (07:00)
--- NOTE | 2018-02-13 07:15 | Diagnostic Imaging Report ---
INDICATION: Cough and congestion. Portable upright AP view of the chest is obtained. There is no previous study for comparison. FINDINGS: Heart size and pulmonary vascularity are within normal limits. There is mild left basilar atelectasis and/or pneumonitis. Minimal linear atelectasis is seen in the right base. No pneumothorax or significant pleural fluid is appreciated. IMPRESSION: Basilar atelectasis and/or pneumonitis, greater on the left without other acute abnormality identified. Dictated by: Dictated on workstation # [id number]
[2018-02-13] MEDS ORDERED: IOHEXOL 350 MG/ML 150 ML (OMNIPAQUE 350) VIAL IV ONE (07:45)
[2018-02-13] MEDS ORDERED: NS 250 ML (IVPB) BAG IV ONE (07:45)
--- NOTE | 2018-02-13 07:51 | Diagnostic Imaging Report ---
PROCEDURE: CT angiography of the chest with contrast. TECHNIQUE: Multiple contiguous axial images were obtained through the chest after uneventful bolus administration of intravenous contrast. 2D reconstructed CTA MIP acquisitions were also performed. INDICATION: Cough and congestion, recent surgery COMPARISON: Radiograph from the same day FINDINGS: The pulmonary arteries are diagnostic to the segmental level. No filling defects are seen to indicate pulmonary embolus. There is mild aortic atherosclerosis without evidence of aneurysm or dissection. The heart is normal in size. There is no pericardial effusion. There is soft tissue air and edema at the anterior neck, likely from recent surgery. There are mildly prominent mediastinal lymph nodes in the lower paratracheal region. There is dense airspace consolidation in the lower lobes bilaterally, left greater than right. No significant pleural effusion is seen. There is no pneumothorax. No central endobronchial lesions are seen. Imaged portions of the upper abdomen are unremarkable. No acute osseous abnormality is seen. IMPRESSION: 1. No pulmonary embolus. 2. Dense consolidation in the lower lobes bilaterally, left greater than right. While there is likely a component of atelectasis, findings are concerning for infection. 3. Soft tissue air and edema in the anterior neck, consistent with history of recent surgery. 4. Mildly prominent mediastinal lymph nodes, likely reactive. Dictated by: Dictated on workstation # [id number]
[2018-02-13 08:00] VITALS: BP 128/67
[2018-02-13] MEDS ORDERED: RECEIVED CONTRAST (Hold Metformin) IV SCH (08:15)
[2018-02-13] MEDS ORDERED: inSUlin DETERMIR 1 UNIT/0.01 ML (LEVEMIR) CHARGE PER UNIT SQ SCH (09:00)
[2018-02-13] MEDS ORDERED: RT-ALBUTEROL/IPRATROPIUM 3 ML (DUONEB) VIAL INH SCH ×2 (09:14→14:00)
[2018-02-13] MEDS ORDERED: RT-ALBUTEROL/IPRATROPIUM 3 ML (DUONEB) VIAL INH PRN ×2 (09:30→11:00)
[2018-02-13] MEDS ORDERED: INSU100I29 SC (09:30)
[2018-02-13] MEDS ORDERED: GABA-488 PO ×2 (09:30)
[2018-02-13] MEDS ORDERED: BACL10TA PO (09:30)
[2018-02-13] MEDS ORDERED: AMIT150T PO (09:30)
[2018-02-13] MEDS ORDERED: AMLO5TAB7 PO (09:30)
[2018-02-13] MEDS ORDERED: BETA15CR37 TOP (09:30)
[2018-02-13] MEDS ORDERED: OXYC-471 PO (09:30)
[2018-02-13] MEDS ORDERED: DICL50TA6 PO (09:30)
[2018-02-13] MEDS ORDERED: ATEN100T PO (09:30)
[2018-02-13] MEDS ORDERED: METF-399 PO (09:30)
[2018-02-13] MEDS ORDERED: CITA20TA9 PO (09:30)
[2018-02-13] MEDS ORDERED: HYDR50TA3 PO (09:30)
[2018-02-13] MEDS ORDERED: GARL10002 PO (09:34)
[2018-02-13] MEDS ORDERED: UBID1CAP53 PO (09:34)
[2018-02-13] MEDS ORDERED: POLY17PO6 PO (09:34)
[2018-02-13] MEDS ORDERED: ASPI-983 PO (09:34)
[2018-02-13] MEDS ORDERED: LUTE1CAP3 PO (09:34)
[2018-02-13] MEDS ORDERED: VITA1TAB17 PO (09:34)
[2018-02-13] MEDS ORDERED: MULT-1029 PO (09:34)
[2018-02-13] MEDS ORDERED: ASCO-281 PO (09:34)
[2018-02-13] MEDS ORDERED: OMEG-77 PO (09:34)
[2018-02-13] MEDS ORDERED: VITA400C60 PO (09:34)
[2018-02-13] MEDS ORDERED: CALC-697 PO (09:34)
[2018-02-13 09:55] VITALS: BP 135/79
[2018-02-13] MEDS ORDERED: EZET1TAB21 PO (10:05)
[2018-02-13] MEDS: morphine INJ 4 MG/ML 1 ML (VIAL/SYRINGE) IVP PRN ×2 (10:52→21:33)
[2018-02-13] MEDS: oxyCODONE/APAP 5/325MG (PERCOCET 5) TABLET PO PRN ×2 (10:54→17:23)
--- NOTE | 2018-02-13 11:23 | History & Physical-Hospitalist ---
History of Present Illness HPI/Chief Complaint CC: Hypoxia with AMS HPI: This is a 67yoWF clinic patient of Wade Turpin who had cervical spine surgery by Dr Degroot at [facility] on Friday and just DC yesterday from the hospital when she became lethargic and unresponsive at home and family could not waker her up. She was brought in to the ER and was found to be hypoxic and evidence of pneumonia, likely aspiration, on CXR. Dr Blackwell was consulted and CT angio revealed no PE only infiltrate and bilateral USG revealed no DVT to r/o additional source of hypoxia. Currently patient is feeling ok but hates the dysphagia diet she is on due to throat edema increasing risk for further aspiration. and son are at the bedside. Restarted home meds. Pt remains on abx coverage with Rocephin and Zmax. Source: patient Exam Limitations: no limitations Date Seen 02/13/18 Time Seen by a Provider: 11:30 Attending Physician Meeta Nguyen David F MD Referring Physician Date of Admission Feb 13, 2018 at 05:15 Home Medications & Allergies Home Medications Reviewed patient Home Medication Reconciliation performed by pharmacy medication reconciliations commercial hvac technician and/or nursing. Patients Allergies have been reviewed. 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) Alcohol Use: Denies Use Recreational Drug Use: No Smoking Status: Never a Smoker Physical Abuse Screen: No Sexual Abuse: No Recent Foreign Travel: No Contact w/other who traveled: No Recent Hopitalizations: Yes (ANTERIOR CERVICAL DISKECTOMY AND FUSION) Recent Infectious Disease Expo: No Immunizations Up To Date Date of Pneumonia Vaccine: Feb 06, 2012 Seasonal Allergies Seasonal Allergies: Yes Past Medical History Surgeries: Adenoidectomy, Hysterectomy, Oophorectomy, Orthopedic, Tonsillectomy Cardiac: High Cholesterol, Hypertension Neurological: Headaches /Migraines, Neuropathy Hysterectomy Genitourinary: Bladder Infection Gastrointestinal: Chronic Constipation Musculoskeletal: Arthritis Endocrine: Diabetes, Insulin dep Psychosocial: Anxiety History of Blood Disorders: Yes (RMSF, TICK FEVER) Review of Systems Constitutional: see HPI, malaise, weakness EENTM: no symptoms reported Respiratory: cough, short of breath Cardiovascular: no symptoms reported Gastrointestinal: no symptoms reported Genitourinary: no symptoms reported Musculoskeletal: neck pain Skin: no symptoms reported Psychiatric/Neurological: No Symptoms Reported All Other Systems Reviewed Negative Unless Noted: Yes Physical Exam Physical Exam Vital Signs Vital Signs - First Documented 02/13/18 02/13/18 03:40 09:55 Temp 96.8 Pulse 66 Resp 17 B/P (MAP) 125/75 (92) Pulse Ox 96 O2 Delivery Nasal Cannula O2 Flow Rate 2.00 FiO2 28 Capillary Refill : Less Than 3 Seconds Height, Weight, BMI Height: 5'3.00" Weight: 123lbs. 12.8oz. 56.606785bi; 21.9 BMI Method:Stated General Appearance: No Apparent Distress, WD/WN, Chronically ill Eyes: Bilateral Eye Normal Inspection, Bilateral Eye PERRL HEENT: PERRL/EOMI, Normal ENT Inspection, Pharynx Normal Neck: Non Tender, Supple, Carotid Bruit, Limited Range of Motion Respiratory: Chest Non Tender, Lungs Clear, No Accessory Muscle Use, No Respiratory Distress, Decreased Breath Sounds (bases) Cardiovascular: Regular Rate, Rhythm, No Edema, No Gallop, No JVD, No Murmur, Normal Peripheral Pulses Gastrointestinal: Normal Bowel Sounds, No Organomegaly, No Pulsatile Mass, Non Tender, Soft Back: Normal Inspection, No CVA Tenderness, No Vertebral Tenderness Extremity: Normal Capillary Refill, Normal Inspection, Normal Range of Motion, Non Tender, No Calf Tenderness, No Pedal Edema Neurologic/Psychiatric: Alert, Oriented x3, No Motor/Sensory Deficits, Normal Mood/Affect Skin: Normal Color, Warm/Dry Lymphatic: No Adenopathy Results Results/Procedures Labs Laboratory Tests 02/13/18 03:44 Patient resulted labs reviewed. Assessment/Plan Admission Diagnosis Assessment: AMS with accidental narcotic overdose Bilateral pneumonia possible aspiration Hypoxia DM HTN HLP Constipation post op Plan: IV abx Nebs BM tx Dc Tely IS Home meds Admission Status: Inpatient Order (span 2 midnights) Reason for Inpatient Admission: Bilateral pneumonia with hypoxia and dysphagia will require 3 days of inpt Diagnosis/Problems Diagnosis/Problems (1) Overdose of medication Status: Acute Qualifiers: Encounter type: initial encounter Injury intent: accidental or unintentional Qualified Codes: T50.901A - Poisoning by unspecified drugs, medicaments and biological substances, accidental (unintentional), initial encounter (2) History of neck surgery Status: Acute (3) Pneumonia Status: Acute Qualifiers: Pneumonia type: due to unspecified organism Laterality: right Lung location: lower lobe of lung Qualified Codes: J18.1 - Lobar pneumonia, unspecified organism (4) Hypertension Status: Chronic Qualifiers: Hypertension type: essential hypertension Qualified Codes: I10 - Essential (primary) hypertension (5) Hypoxia Status: Acute (6) Diabetes mellitus Status: Chronic Qualifiers: Diabetes mellitus type: type 2 Diabetes mellitus terminal clerk insulin use: without terminal clerk use Diabetes mellitus complication status: without complication Qualified Codes: E11.9 - Type 2 diabetes mellitus without complications (7) Constipation Status: Acute Qualifiers: Constipation type: slow transit constipation Qualified Codes: K59.01 - Slow transit constipation (8) Hyperlipidemia Status: Chronic (9) Dysphagia Status: Acute Qualifiers: Dysphagia type: oropharyngeal phase Qualified Codes: R13.12 - Dysphagia, oropharyngeal phase (10) Aspiration into airway Status: Acute Qualifiers: Encounter type: initial encounter Qualified Codes: T17.908A - Unspecified foreign body in respiratory tract, part unspecified causing other injury, initial encounter Clinical Quality Measures DVT/VTE Risk/Contraindication: Risk Factor Score Per Nursin RFS Level Per Nursing on Admit: 4+=Very High MEETA NGUYEN DO Feb 13, 2018 11:23
[2018-02-13] MEDS ORDERED: ONDANSETRON 4 MG/2 ML (SDV) Z0FRAN IVP PRN (11:45)
[2018-02-13] MEDS ORDERED: BETAMETHASONE DIPRO (AUGMENTED) 0.05% CREAM 15 GM TOP PRN (11:45)
[2018-02-13 12:00] VITALS: BP 120/76
[2018-02-13] MEDS: inSUlin ASPART (NovoLOG) 1 UNIT/0.01 ML (CHARGE PER UNIT) SC SCH ×3 (12:05→21:35)
[2018-02-13] MEDS: DOCUSATE SODIUM 100 MG (COLACE) CAP PO SCH ×2 (12:06→21:34)
[2018-02-13] MEDS: SENNA W/DOCUSATE (SENOKOT S) TABLET PO SCH ×2 (12:06→21:35)
[2018-02-13] MEDS: POLYETHYLENE GLYCOL 17 GM (MIRALAX) PACK PO SCH ×2 (12:06→21:33)
--- NOTE | 2018-02-13 14:02 | ST Dysphagia Evaluation ---
Speech Evaluation-General Medical Diagnosis Neck surgery Onset Date: Feb 10, 2018 Therapy Diagnosis Therapy Diagnosis: Dysphagia Precautions Precautions/Isolations: Fall Prevention, Standard Precautions Referral Referring Physician: Dr. Meeta Kennedy Reason for Referral: Evaluation/Treatment Medical History Pertinent Medical History: HTN, Neuropathy Reviewed History: Yes Speech PLF/Current-Dysphagia Prior Level of Function Pt was independent. No hx of dysphagia. Subjective Pt in bed wearing a neck brace. Cognitive Status Patient Orientation: Person Oral Motor Skills Dentition: Natural Ability to Follow Directions: Good Oral Expression Ability: No Impairment Face Facial Symmetry: Symmetrical Oral-Facial Assessment Oral-Facial Dentition: Normal Dysphagia Evaluation Consistencies Presented: Thin Liquid, [place] Thick Liquid, Pureed Oral phase appeared WFL Pharyngeal Phase: Delayed Laryngeal Elevation Pt appeared to have some difficulty with thin liquids based on clinical observation. No coughing was noted but the swallow didn't sound normal. Did not experience that with nectar thick liquids or the pureed. Dietary Recommendations: Pureed Liquid Recommendations: [place] Consistancy Dysphagia Evaluation Summary Pt appeared to by dysphagic for thin liquids. [place] thick liquids recommended. No signs/symptoms of aspiration observed with pureed. Higher texture levels not attempted at this point due to the extra energy it takes to chew and swallow. Barriers to Learning None identified Speech Short Term Goals Short Term Goals Short Term Goals Skilled ST not indicated at this time as dysphagia exercises would not be beneficial as long as she has a neck brace on. Will follow pt to determine when appropriate to attempt a diet upgrade. Speech Wind Turbine Engineer Goals Prison Goals no LTG established. Speech-Plan Patient/Family Goals Patient/Family Goals: to eventually eat "normal" food again Treatment Plan Speech Therapy Treatment Plan: Discontinue ST skilled ST not indicated at this time. Frequency: Modified Program (IRF) (0) Estimated Hrs Per Day: Other (0) Rehab Potential: Good Barriers to Learning: None identified Pt/Family Agrees to Plan: Yes Safety Risks/Education Teaching Recipient: Patient, Family Teaching Methods: Discussion Response to Teaching: Verbalize Understanding Time Speech Therapy Time In: 10:05 Speech Therapy Time Out: 10:35 Total Billed Time: 30 Billed Treatment Time 1, INGRIDANNE Yeh Feb 13, 2018 14:02
[2018-02-13] MEDS: RT-ALBUTEROL SULF 2.5 MG/3 ML PRE-MIX VIAL INH SCH ×4 (15:14→22:52)
[2018-02-13 16:38] VITALS: BP 125/72
--- NOTE | 2018-02-13 18:04 | Diagnostic Imaging Report ---
PROCEDURE: US Venous Lower Ext Iftikhar. TECHNIQUE: Multiple real-time grayscale images were obtained over the lower extremities in various projections, bilaterally. Additional duplex Doppler and color Doppler images were also obtained. INDICATION: Leg pain and swelling, shortness of breath. FINDINGS: The previous bilateral lower extremity venous Doppler exam performed on 02/15/2014 failed to show any sign of a deep venous thrombosis. On this study, there is still generally good blood flow and compressibility at all levels of the deep venous system. There is no evidence for a deep venous thrombosis. IMPRESSION: There is still no evidence for a deep venous thrombosis of either lower extremity. Dictated by: Dictated on workstation # [id number]
[2018-02-13 19:15] VITALS: BP 122/74
[2018-02-13] MEDS ORDERED: GABAPENTIN 300 MG (NEURONTIN) CAP PO SCH (21:00)
[2018-02-13] MEDS: AMITRIPTYLINE 150 MG (ELAVIL) TABLET PO SCH (21:33)
[2018-02-13] MEDS: ATENOLOL 50 MG (TENORMIN) TAB PO SCH (21:34)
[2018-02-13] MEDS: amLODIPine 5 MG (NORVASC) TAB PO SCH (21:35)
[2018-02-13] MEDS: inSUlin DETERMIR 1 UNIT/0.01 ML (LEVEMIR) CHARGE PER UNIT SQ SCH (21:37)
[2018-02-14] MEDS: NS W/KCL 40 MEQ/L 1,000 ML IV SCH ×4 (00:20→22:54)
[2018-02-14 00:22] VITALS: BP 121/59
[2018-02-14] MEDS: RT-ALBUTEROL SULF 2.5 MG/3 ML PRE-MIX VIAL INH SCH ×2 (02:27→07:15)
[2018-02-14 04:09] VITALS: BP 113/56
[2018-02-14] MEDS ORDERED: cefTRIAXone 1 GM/NS 50 ML IVPB IV SCH ×2 (05:00)
[2018-02-14] MEDS: oxyCODONE/APAP 5/325MG (PERCOCET 5) TABLET PO PRN ×3 (05:21→18:26)
[2018-02-14 05:22] LABS: BASOPHILS % (AUTO) 0 % (0-10); EOSINOPHILS # (AUTO) 0.1 10^3/uL (0.0-0.3); EOSINOPHILS % (AUTO) 1 % (0-10); HEMATOCRIT 31 % (35-52); HEMOGLOBIN 10.4 G/DL (11.5-16.0); LYMPHOCYTES # (AUTO) 0.7 X 10^3 (1.0-4.0); LYMPHOCYTES % (AUTO) 15 % (12-44); MEAN CORPUSCULAR HEMOGLOBIN 30 PG (25-34); MEAN CORPUSCULAR HGB CONC 33 G/DL (32-36); MEAN CORPUSCULAR VOLUME 92 FL (80-99); MEAN PLATELET VOLUME 8.4 FL (7.4-10.4); MONOCYTES # (AUTO) 0.4 X 10^3 (0.0-1.0); MONOCYTES % (AUTO) 9 % (0-12); NEUTROPHILS # (AUTO) 3.5 X 10^3 (1.8-7.8); NEUTROPHILS % (AUTO) 75 % (42-75); PLATELET COUNT 183 10^3/uL (130-400); RED BLOOD COUNT 3.42 10^6/uL (4.35-5.85); RED CELL DISTRIBUTION WIDTH 11.9 % (10.0-14.5); WHITE BLOOD COUNT 4.7 10^3/uL (4.3-11.0)
[2018-02-14] MEDS: morphine INJ 4 MG/ML 1 ML (VIAL/SYRINGE) IVP PRN (05:26)
[2018-02-14 06:08] LABS: ALANINE AMINOTRANSFERASE 16 U/L (0-55); ALBUMIN 3.4 GM/DL (3.2-4.5); ALKALINE PHOSPHATASE 47 U/L (40-136); BILIRUBIN,TOTAL 0.6 MG/DL (0.1-1.0); BUN/CREATININE RATIO 12; CALCIUM 8.9 MG/DL (8.5-10.1); CARBON DIOXIDE 26 MMOL/L (21-32); CHLORIDE 104 MMOL/L (98-107); CREATININE SERUM 0.57 MG/DL (0.60-1.30); GFR ESTIMATED > 60; GLUCOSE 65 MG/DL (70-105); POTASSIUM 4.1 MMOL/L (3.6-5.0); SODIUM 138 MMOL/L (135-145); TOTAL PROTEIN 5.8 GM/DL (6.4-8.2)
[2018-02-14] MEDS: inSUlin ASPART (NovoLOG) 1 UNIT/0.01 ML (CHARGE PER UNIT) SC SCH ×4 (06:13→22:51)
--- NOTE | 2018-02-14 07:28 | Pulmonary Progress Note ---
Subjective Time Seen by a Provider: 08:00 Subjective/Events-last exam Pt states she has thick mucous that is difficult to cough up. Sepsis Event Evaluation Height, Weight, BMI Height: 5'3.00" Weight: 123lbs. 12.8oz. 56.983384rn; 21.9 BMI Method:Stated Exam Exam Vital Signs Date Time Temp Pulse Resp B/P (MAP) Pulse Ox O2 Delivery O2 Flow Rate FiO2 02/14/18 07:16 96 Nasal Cannula 3.00 02/14/18 04:09 97.0 69 18 113/56 (75) 98 Nasal Cannula 3.00 02/14/18 02:29 96 Nasal Cannula 1.00 02/14/18 00:22 96.9 83 20 121/59 (79) 92 Room Air 02/13/18 22:54 92 Nasal Cannula 1.00 02/13/18 20:05 92 Nasal Cannula 2.00 02/13/18 19:40 90 Nasal Cannula 1.00 02/13/18 19:15 99.0 90 18 122/74 (90) 92 Room Air 02/13/18 16:38 98.9 92 18 125/72 (89) 91 Room Air 02/13/18 15:23 88 Room Air 02/13/18 12:00 98.0 96 20 120/76 (91) 90 Room Air 02/13/18 09:55 101 92 28 02/13/18 08:45 92 Nasal Cannula 2.00 02/13/18 08:00 99.6 101 16 128/67 (87) 90 Room Air I & O 02/14/18 07:00 Intake Total 2070 ml Output Total 1700 ml Balance 370 ml Height & Weight Height: 5'3.00" Weight: 123lbs. 12.8oz. 56.406999zm; 21.9 BMI Method:Stated General Appearance: No Apparent Distress, WD/WN, Chronically ill HEENT: PERRL/EOMI, Normal ENT Inspection, Pharynx Normal Neck: Non Tender, Supple, Carotid Bruit, Limited Range of Motion Respiratory: Chest Non Tender, Lungs Clear, No Accessory Muscle Use, No Respiratory Distress, Decreased Breath Sounds (bases) Cardiovascular: Regular Rate, Rhythm, No Edema, No Gallop, No JVD, No Murmur, Normal Peripheral Pulses Capillary Refill: Less Than 3 Seconds Extremity: Normal Capillary Refill, Normal Inspection, Normal Range of Motion, Non Tender, No Calf Tenderness, No Pedal Edema Neurologic/Psychiatric: Alert, Oriented x3, No Motor/Sensory Deficits, Normal Mood/Affect Skin: Normal Color, Warm/Dry Lymphatic: No Adenopathy Results Lab Laboratory Tests 02/13/18 03:44 02/14/18 05:04 Assessment/Plan Assessment/Plan recent anterior cervical discectomy and fusion at [facility]02/11/18 Bilateral pneumonia with Hypoxia probable aspiration and mucous plugging -No Fever or leukocytosis -Currently on Rocephin and Azithromycin (PCN is listed as an allergy however pt denies) -Will change Abx to Zosyn if pt is not allergic to PCN. -PT may need bronchoscopy secondary to mucous plugging and atelectasis. -CTA reviewed Dysphagia -PT is on a dysphagia diet now ELIEL RODRIGUEZ DO Feb 14, 2018 07:28
[2018-02-14 08:00] VITALS: BP 105/59
--- NOTE | 2018-02-14 08:23 | Progress Note (SOAP) ---
Subjective Subjective/Events-last exam This morning I spent time with patient as well as her daughter who had multiple questions. Patient was noted to be coughing up mucus during the time period spent with her. Her daughter does report she has done better with baby food at least in terms of swallowing. Patient underwent cervical neck procedure that [facility] February 11, 2018. She is also still noted to have occasional cough. Overall her mentation does appear to be better today according the daughter. Initially she was found to be somewhat somnolent before coming into the hospital. Review of Systems Date Seen by Provider: Feb 14, 2018 Time Seen by Provider: 07:10 Objective Exam Last Set of Vital Signs Vital Signs Date Time Temp Pulse Resp B/P (MAP) Pulse Ox O2 Delivery O2 Flow Rate FiO2 02/14/18 07:16 96 Nasal Cannula 3.00 02/14/18 04:09 97.0 69 18 113/56 (75) 02/13/18 09:55 28 Capillary Refill : Less Than 3 Seconds I&O Intake and Output 02/14/18 00:00 Intake Total 2000 ml Output Total 800 ml Balance 1200 ml Intake Oral 950 ml IV Total 1050 ml Output Urine Total 800 ml # Voids 2 Daily Weight Change No General: Alert, Oriented X3, No Acute Distress Neck: Other (Cervical collar in place) Lungs: Clear to Auscultation (Except for decreased breath sounds and Rales in the bases) Heart: Regular Rate Abdomen: Soft Skin: No Rashes Results/Procedures Lab Laboratory Tests 02/13/18 11:18: Glucometer 120H 02/13/18 17:24: Glucometer 264H 02/13/18 20:54: Glucometer 368H 02/14/18 05:04: White Blood Count 4.7, Red Blood Count 3.42L, Hemoglobin 10.4L, Hematocrit 31L, Mean Corpuscular Volume 92, Mean Corpuscular Hemoglobin 30, Mean Corpuscular Hemoglobin Concent 33, Red Cell Distribution Width 11.9, Platelet Count 183, Mean Platelet Volume 8.4, Neutrophils (%) (Auto) 75, Lymphocytes (%) (Auto) 15, Monocytes (%) (Auto) 9, Eosinophils (%) (Auto) 1, Basophils (%) (Auto) 0, Neutrophils # (Auto) 3.5, Lymphocytes # (Auto) 0.7L, Monocytes # (Auto) 0.4, Eosinophils # (Auto) 0.1, Basophils # (Auto) 0.0, Sodium Level 138, Potassium Level 4.1, Chloride Level 104, Carbon Dioxide Level 26, Anion Gap 8, Blood Urea Nitrogen 7, Creatinine 0.57L, Estimat Glomerular Filtration Rate > 60, BUN/ Creatinine Ratio 12, Glucose Level 65L, Calcium Level 8.9, Corrected Calcium 9.4 , Total Bilirubin 0.6, Aspartate Amino Transf (AST/SGOT) 13, Alanine Aminotransferase (ALT/SGPT) 16, Alkaline Phosphatase 47, Total Protein 5.8L, Albumin 3.4 Assessment/Plan Assessment/Plan Admission Dx 1. Status post cervical neck fusion February 11, 2018 2. Bilateral pneumonia suspect related to aspiration or mucous 3. Hypoxemia due to number 2 4. Dysphagia secondary to number 1 5. Electrolyte imbalance on admission with low sodium and potassium Assessment & Plan 1. Status post cervical neck fusion February 11, 2018 2. Bilateral pneumonia suspect related to aspiration or mucous -Patient initially on ceftriaxone and Zithromax. -Pulmonology also following along and has changed to Zosyn 3. Hypoxemia due to number 2 -Oxygen per nasal cannula to maintain saturations in the 90 range 4. Dysphagia secondary to number 1 -Patient on soft diet 5. Electrolyte imbalance on admission with low sodium and potassium -Ongoing monitoring of electrolytes Clinical Quality Measures DVT/VTE Risk/Contraindication: Risk Factor Score Per Nursin RFS Level Per Nursing on Admit: 4+=Very High CLOTILDE GAINES MD Feb 14, 2018 08:23
[2018-02-14] MEDS ORDERED: GABAPENTIN 300 MG (NEURONTIN) CAP PO SCH (09:00)
[2018-02-14] MEDS: AZITHROMYCIN 250 MG TAB (ZITHROMAX) PO SCH (09:21)
[2018-02-14] MEDS: amLODIPine 5 MG (NORVASC) TAB PO SCH ×2 (09:21→20:59)
[2018-02-14] MEDS: guaiFENesin (MUCINEX) 600 MG TAB PO SCH ×2 (09:22→21:02)
[2018-02-14] MEDS: ASPIRIN E.C. 81 MG (ECOTRIN) TAB PO SCH (09:23)
[2018-02-14] MEDS: SENNA W/DOCUSATE (SENOKOT S) TABLET PO SCH ×2 (09:23→20:59)
[2018-02-14] MEDS: DOCUSATE SODIUM 100 MG (COLACE) CAP PO SCH ×2 (09:23→20:58)
[2018-02-14] MEDS: POLYETHYLENE GLYCOL 17 GM (MIRALAX) PACK PO SCH ×2 (09:23→20:59)
[2018-02-14] MEDS: inSUlin DETERMIR 1 UNIT/0.01 ML (LEVEMIR) CHARGE PER UNIT SQ SCH ×2 (09:24→22:51)
[2018-02-14] MEDS: aCETylcysteine 20% (MUCOMYST) 30ML SOLN VIAL INH SCH ×2 (10:32→19:14)
[2018-02-14] MEDS: RT-ALBUTEROL/IPRATROPIUM 3 ML (DUONEB) VIAL INH SCH ×2 (10:32→19:13)
[2018-02-14] MEDS ORDERED: PIPERACILLIN SODIUM/TAZOBACTAM 4.5 GM in NS (IVPB) 100 ML IV NR (12:16)
[2018-02-14] MEDS ORDERED: aCETylcysteine 20% (MUCOMYST) 30ML SOLN VIAL ONE (14:28)
[2018-02-14 16:18] VITALS: BP 115/64
[2018-02-14] MEDS: PIPERACILLIN SODIUM/TAZOBACTAM 4.5 GM in NS (IVPB) 100 ML IV SCH (18:01)
[2018-02-14 20:25] VITALS: BP 114/71
[2018-02-14] MEDS: ATENOLOL 50 MG (TENORMIN) TAB PO SCH (20:58)
[2018-02-14] MEDS: GABAPENTIN 300 MG (NEURONTIN) CAP PO SCH (20:58)
[2018-02-14] MEDS: AMITRIPTYLINE 150 MG (ELAVIL) TABLET PO SCH (20:59)
[2018-02-14] MEDS: BACLOFEN 10 MG (LIORESAL) TAB PO PRN (22:50)
[2018-02-14 23:10] VITALS: BP 125/71
[2018-02-15] MEDS: PIPERACILLIN SODIUM/TAZOBACTAM 4.5 GM in NS (IVPB) 100 ML IV SCH ×3 (01:28→17:35)
[2018-02-15] MEDS: oxyCODONE/APAP 5/325MG (PERCOCET 5) TABLET PO PRN ×4 (02:30→21:07)
[2018-02-15 05:43] LABS: BASOPHILS % (AUTO) 0 % (0-10); EOSINOPHILS # (AUTO) 0.2 10^3/uL (0.0-0.3); EOSINOPHILS % (AUTO) 4 % (0-10); HEMATOCRIT 33 % (35-52); HEMOGLOBIN 10.7 G/DL (11.5-16.0); LYMPHOCYTES # (AUTO) 0.6 X 10^3 (1.0-4.0); LYMPHOCYTES % (AUTO) 12 % (12-44); MEAN CORPUSCULAR HEMOGLOBIN 30 PG (25-34); MEAN CORPUSCULAR HGB CONC 32 G/DL (32-36); MEAN CORPUSCULAR VOLUME 93 FL (80-99); MEAN PLATELET VOLUME 8.6 FL (7.4-10.4); MONOCYTES # (AUTO) 0.4 X 10^3 (0.0-1.0); MONOCYTES % (AUTO) 8 % (0-12); NEUTROPHILS # (AUTO) 4.2 X 10^3 (1.8-7.8); NEUTROPHILS % (AUTO) 77 % (42-75); PLATELET COUNT 227 10^3/uL (130-400); RED BLOOD COUNT 3.55 10^6/uL (4.35-5.85); RED CELL DISTRIBUTION WIDTH 11.9 % (10.0-14.5); WHITE BLOOD COUNT 5.4 10^3/uL (4.3-11.0)
[2018-02-15 06:24] LABS: BUN/CREATININE RATIO 11; CALCIUM 9.6 MG/DL (8.5-10.1); CARBON DIOXIDE 23 MMOL/L (21-32); CHLORIDE 106 MMOL/L (98-107); CREATININE SERUM 0.65 MG/DL (0.60-1.30); GFR ESTIMATED > 60; POTASSIUM 4.1 MMOL/L (3.6-5.0); SODIUM 139 MMOL/L (135-145)
--- NOTE | 2018-02-15 06:29 | Pulmonary Progress Note ---
Subjective Time Seen by a Provider: 07:56 Subjective/Events-last exam PT complains of sore mouth and trouble swallowing. Family at bedside. Sepsis Event Evaluation Height, Weight, BMI Height: 5'3.00" Weight: 123lbs. 12.8oz. 56.846870rb; 21.9 BMI Method:Stated Exam Exam Vital Signs Date Time Temp Pulse Resp B/P (MAP) Pulse Ox O2 Delivery O2 Flow Rate FiO2 02/14/18 23:10 98.2 74 18 125/71 (89) 94 Room Air 02/14/18 20:25 97.1 92 18 114/71 (85) 94 Room Air 02/14/18 20:00 Room Air 02/14/18 19:14 95 Room Air 02/14/18 16:18 98.6 84 20 115/64 (81) 93 Nasal Cannula 0.50 02/14/18 15:05 94 Nasal Cannula 3.00 02/14/18 10:32 96 Nasal Cannula 3.00 02/14/18 08:35 92 Nasal Cannula 2.00 02/14/18 08:00 97.0 71 20 105/59 (74) 94 Room Air 02/14/18 07:16 96 Nasal Cannula 3.00 I & O 02/15/18 07:00 Intake Total 2420 ml Output Total 5100 ml Balance -2680 ml Height & Weight Height: 5'3.00" Weight: 123lbs. 12.8oz. 56.275215lh; 21.9 BMI Method:Stated General Appearance: WD/WN, Anxious, Chronically ill, Mild Distress HEENT: PERRL/EOMI, Normal ENT Inspection, Pharynx Normal Neck: Non Tender, Supple, Carotid Bruit, Limited Range of Motion Respiratory: Chest Non Tender, Lungs Clear, No Accessory Muscle Use, No Respiratory Distress, Decreased Breath Sounds (bases) Cardiovascular: Regular Rate, Rhythm, No Edema, No Gallop, No JVD, No Murmur, Normal Peripheral Pulses Capillary Refill: Less Than 3 Seconds Extremity: Normal Capillary Refill, Normal Inspection, Normal Range of Motion, Non Tender, No Calf Tenderness, No Pedal Edema Neurologic/Psychiatric: Alert, Oriented x3, No Motor/Sensory Deficits, Normal Mood/Affect Skin: Normal Color, Warm/Dry Lymphatic: No Adenopathy Results Lab Laboratory Tests 02/14/18 05:04 02/15/18 05:11 Assessment/Plan Assessment/Plan recent anterior cervical discectomy and fusion at [facility]02/11/18 Bilateral pneumonia with Hypoxia probable aspiration and mucous plugging -No Fever or leukocytosis -Zosyn -PT may need bronchoscopy secondary to mucous plugging and atelectasis. Thrush -start magic mouth wash Dysphagia -PT is on a dysphagia diet now ELIEL RODRIGUEZ DO Feb 15, 2018 06:29
[2018-02-15 06:34] LABS: GLUCOSE 53 MG/DL (70-105)
[2018-02-15] MEDS: inSUlin ASPART (NovoLOG) 1 UNIT/0.01 ML (CHARGE PER UNIT) SC SCH ×4 (06:44→21:07)
[2018-02-15] MEDS: RT-ALBUTEROL/IPRATROPIUM 3 ML (DUONEB) VIAL INH SCH ×4 (06:55→18:34)
[2018-02-15] MEDS: aCETylcysteine 20% (MUCOMYST) 30ML SOLN VIAL INH SCH ×4 (06:55→18:35)
[2018-02-15 08:00] VITALS: BP 128/75
[2018-02-15] MEDS: guaiFENesin (MUCINEX) 600 MG TAB PO SCH ×2 (08:31→20:37)
[2018-02-15] MEDS: inSUlin DETERMIR 1 UNIT/0.01 ML (LEVEMIR) CHARGE PER UNIT SQ SCH ×2 (08:31→21:07)
[2018-02-15] MEDS: DOCUSATE SODIUM 100 MG (COLACE) CAP PO SCH ×2 (08:31→20:39)
[2018-02-15] MEDS: ASPIRIN E.C. 81 MG (ECOTRIN) TAB PO SCH (08:31)
[2018-02-15] MEDS: AZITHROMYCIN 250 MG TAB (ZITHROMAX) PO SCH (08:31)
[2018-02-15] MEDS: SENNA W/DOCUSATE (SENOKOT S) TABLET PO SCH ×2 (08:31→20:39)
[2018-02-15] MEDS: GABAPENTIN 300 MG (NEURONTIN) CAP PO SCH ×2 (08:31→20:38)
[2018-02-15] MEDS: amLODIPine 5 MG (NORVASC) TAB PO SCH ×2 (08:31→20:37)
[2018-02-15] MEDS: POLYETHYLENE GLYCOL 17 GM (MIRALAX) PACK PO SCH ×2 (08:32→20:40)
[2018-02-15] MEDS: MAGIC MOUTHWASH (ADULT) PO SCH ×16 (08:32→20:40)
--- NOTE | 2018-02-15 08:44 | Progress Note (SOAP) ---
Subjective Subjective/Events-last exam Patient is more talkative this morning. She appears to be in no distress. She is not constantly coughing up mucus on rounds today. Review of Systems Date Seen by Provider: Feb 15, 2018 Time Seen by Provider: 07:55 Objective Exam Last Set of Vital Signs Vital Signs Date Time Temp Pulse Resp B/P (MAP) Pulse Ox O2 Delivery O2 Flow Rate FiO2 02/15/18 06:56 93 Room Air 02/14/18 23:10 98.2 74 18 125/71 (89) 02/14/18 16:18 0.50 02/13/18 09:55 28 Capillary Refill : Less Than 3 Seconds I&O Intake and Output 02/15/18 00:00 Intake Total 3440 ml Output Total 6000 ml Balance -2560 ml Intake Oral 1340 ml IV Total 2100 ml Output Urine Total 6000 ml General: No Acute Distress Lungs: Other (Overall clear in the apical regions with few rales in bases) Heart: Regular Rate Abdomen: Soft Skin: No Rashes Neuro: Normal Speech Psych/Mental Status: Mental Status NL, Mood NL Results/Procedures Lab Laboratory Tests 02/14/18 11:49: Glucometer 255H 02/14/18 16:18: Glucometer 106 02/14/18 22:22: Glucometer 230H 02/15/18 05:11: White Blood Count 5.4, Red Blood Count 3.55L, Hemoglobin 10.7L, Hematocrit 33L, Mean Corpuscular Volume 93, Mean Corpuscular Hemoglobin 30, Mean Corpuscular Hemoglobin Concent 32, Red Cell Distribution Width 11.9, Platelet Count 227, Mean Platelet Volume 8.6, Neutrophils (%) (Auto) 77H, Lymphocytes (%) (Auto) 12 , Monocytes (%) (Auto) 8, Eosinophils (%) (Auto) 4, Basophils (%) (Auto) 0, Neutrophils # (Auto) 4.2, Lymphocytes # (Auto) 0.6L, Monocytes # (Auto) 0.4, Eosinophils # (Auto) 0.2, Basophils # (Auto) 0.0, Sodium Level 139, Potassium Level 4.1, Chloride Level 106, Carbon Dioxide Level 23, Anion Gap 10, Blood Urea Nitrogen 7, Creatinine 0.65, Estimat Glomerular Filtration Rate > 60, BUN/ Creatinine Ratio 11, Glucose Level 53*L, Calcium Level 9.6 02/15/18 07:35: Glucometer 268H Assessment/Plan Assessment/Plan Assessment & Plan 1. Status post cervical neck fusion February 11, 2018 2. Bilateral pneumonia suspect related to aspiration or mucous -Patient initially on ceftriaxone and Zithromax. -Pulmonology also following along and has changed to Zosyn 02/15 -Clinically patient appears to be improving. She does not appear to have as much mucus coughed up today. -Patient has chest x-ray on order for the morning. 3. Hypoxemia due to number 2 -Oxygen per nasal cannula to maintain saturations in the 90 range 4. Dysphagia secondary to number 1 -Patient on soft diet 5. Electrolyte imbalance on admission with low sodium and potassium -Ongoing monitoring of electrolytes 02/15 -Electrolytes appear to be normalized Clinical Quality Measures DVT/VTE Risk/Contraindication: Risk Factor Score Per Nursin RFS Level Per Nursing on Admit: 4+=Very High CLOTILDE GAINES MD Feb 15, 2018 08:44
[2018-02-15] MEDS ORDERED: MAGIC MOUTHWASH, ADULT 155 ML BOTTLE PO SCH (09:00)
[2018-02-15] MEDS: NS W/KCL 40 MEQ/L 1,000 ML IV SCH ×2 (09:34→17:41)
[2018-02-15] MEDS: BACLOFEN 10 MG (LIORESAL) TAB PO PRN ×2 (13:38→21:07)
[2018-02-15 16:00] VITALS: BP 139/69
[2018-02-15 20:35] VITALS: BP 147/73
[2018-02-15] MEDS: AMITRIPTYLINE 150 MG (ELAVIL) TABLET PO SCH (20:38)
[2018-02-15] MEDS: ATENOLOL 50 MG (TENORMIN) TAB PO SCH (20:39)
[2018-02-16 00:15] VITALS: BP 131/73
[2018-02-16] MEDS: PIPERACILLIN SODIUM/TAZOBACTAM 4.5 GM in NS (IVPB) 100 ML IV SCH ×2 (01:23→09:24)
[2018-02-16] MEDS: inSUlin ASPART (NovoLOG) 1 UNIT/0.01 ML (CHARGE PER UNIT) SC SCH ×2 (06:22→11:24)
[2018-02-16] MEDS: oxyCODONE/APAP 5/325MG (PERCOCET 5) TABLET PO PRN ×2 (06:33→12:37)
[2018-02-16] MEDS: RT-ALBUTEROL/IPRATROPIUM 3 ML (DUONEB) VIAL INH SCH ×2 (07:03→10:22)
[2018-02-16] MEDS: aCETylcysteine 20% (MUCOMYST) 30ML SOLN VIAL INH SCH ×2 (07:07→10:22)
--- NOTE | 2018-02-16 07:59 | Pulmonary Progress Note ---
Subjective Time Seen by a Provider: 07:59 Sepsis Event Evaluation Height, Weight, BMI Height: 5'3.00" Weight: 123lbs. 12.8oz. 56.128258ob; 21.9 BMI Method:Stated Exam Exam Vital Signs Date Time Temp Pulse Resp B/P (MAP) Pulse Ox O2 Delivery O2 Flow Rate FiO2 02/16/18 07:00 92 Room Air 02/16/18 00:15 97.6 67 20 131/73 (92) 94 Room Air 02/15/18 20:40 Room Air 02/15/18 20:35 98.7 88 20 147/73 (97) 94 Room Air 02/15/18 18:37 98 Room Air 02/15/18 16:00 100.4 90 20 139/69 (92) 95 Room Air 02/15/18 15:08 92 Room Air 02/15/18 10:57 92 Room Air 02/15/18 08:37 Room Air 02/15/18 08:00 96.5 79 18 128/75 (92) 92 Room Air I & O 02/16/18 07:00 Intake Total 2950 ml Output Total 6000 ml Balance -3050 ml Height & Weight Height: 5'3.00" Weight: 123lbs. 12.8oz. 56.235089xf; 21.9 BMI Method:Stated General Appearance: WD/WN, Anxious, Chronically ill, Mild Distress HEENT: PERRL/EOMI, Normal ENT Inspection, Pharynx Normal Neck: Non Tender, Supple, Carotid Bruit, Limited Range of Motion Respiratory: Chest Non Tender, Lungs Clear, No Accessory Muscle Use, No Respiratory Distress, Decreased Breath Sounds (bases) Cardiovascular: Regular Rate, Rhythm, No Edema, No Gallop, No JVD, No Murmur, Normal Peripheral Pulses Capillary Refill: Less Than 3 Seconds Extremity: Normal Capillary Refill, Normal Inspection, Normal Range of Motion, Non Tender, No Calf Tenderness, No Pedal Edema Neurologic/Psychiatric: Alert, Oriented x3, No Motor/Sensory Deficits, Normal Mood/Affect Skin: Normal Color, Warm/Dry Lymphatic: No Adenopathy Results Lab Laboratory Tests 02/15/18 05:11 Assessment/Plan Assessment/Plan recent anterior cervical discectomy [facility] at [facility]02/11[facility]18 Bilateral pneumonia with Hypoxia probable aspiration and mucous plugging -No Fever or leukocytosis -Zosyn -PT may need bronchoscopy secondary to mucous plugging and atelectasis. -Will repeat CXR this AM Thrush -start magic mouth wash Dysphagia -PT is on a dysphagia diet now ELIEL RODRIGUEZ DO Feb 16, 2018 07:59
[2018-02-16 08:00] VITALS: BP 125/71
--- NOTE | 2018-02-16 08:35 | Diagnostic Imaging Report ---
INDICATION: Shortness of breath with pneumonia and hypoxia. TIME OF EXAMINATION: 8:15 AM. COMPARISON: 02/13/2018. FINDINGS: The lungs are clear on today's study. No infiltrates are seen. The pulmonary vascularity is normal. The heart size is stable. No effusion or pneumothorax is seen. IMPRESSION: Resolution of the left basilar infiltrate/atelectasis when compared with the examination of 3 days earlier. Dictated by: Dictated on workstation # [id number]
[2018-02-16] MEDS: POLYETHYLENE GLYCOL 17 GM (MIRALAX) PACK PO SCH (09:12)
[2018-02-16] MEDS: ASPIRIN E.C. 81 MG (ECOTRIN) TAB PO SCH (09:12)
[2018-02-16] MEDS: DOCUSATE SODIUM 100 MG (COLACE) CAP PO SCH (09:12)
[2018-02-16] MEDS: AZITHROMYCIN 250 MG TAB (ZITHROMAX) PO SCH (09:13)
[2018-02-16] MEDS: GABAPENTIN 300 MG (NEURONTIN) CAP PO SCH (09:13)
[2018-02-16] MEDS: inSUlin DETERMIR 1 UNIT/0.01 ML (LEVEMIR) CHARGE PER UNIT SQ SCH (09:13)
[2018-02-16] MEDS: SENNA W/DOCUSATE (SENOKOT S) TABLET PO SCH (09:13)
[2018-02-16] MEDS: guaiFENesin (MUCINEX) 600 MG TAB PO SCH (09:21)
[2018-02-16] MEDS: amLODIPine 5 MG (NORVASC) TAB PO SCH (09:21)
[2018-02-16] MEDS: MAGIC MOUTHWASH (ADULT) PO SCH ×4 (09:25)
[2018-02-16] MEDS ORDERED: AMOX-358 PO (10:07)
[2018-02-16] MEDS ORDERED: GUAI600T43 PO (10:07)
[2018-02-16] MEDS ORDERED: STAR1POW PO (10:08)
--- NOTE | 2018-02-16 10:09 | Discharge Summary-Hospitalist ---
Diagnosis/Chief Complaint Date of Admission Feb 13, 2018 at 05:15 Date of Discharge Discharge Date: Feb 16, 2018 Admission Diagnosis Assessment: AMS with accidental narcotic overdose Bilateral pneumonia possible aspiration Hypoxia DM HTN HLP Constipation post op Plan: IV abx Nebs BM tx Dc Tely IS Home meds Discharge Diagnosis (1) Overdose of medication Status: Resolved (2) History of neck surgery Status: Acute (3) Pneumonia Status: Acute (4) Hypertension Status: Chronic (5) Hypoxia Status: Acute (6) Diabetes mellitus Status: Chronic (7) Constipation Status: Resolved (8) Hyperlipidemia Status: Chronic (9) Dysphagia Status: Acute (10) Aspiration into airway Status: Acute Discharge Summary Discharge Physical Exam Allergies: Coded Allergies: glipizide (Unverified Allergy, Unknown, DOESN'T REMEMBER REACTION, 08/02/13 ) acetaminophen (Unverified Adverse Reaction, Mild, HALLUCINATIONS, 08/06/13) butorphanol (Unverified Adverse Reaction, Mild, HALLUCINATIONS, 08/06/13) oxycodone (Unverified Adverse Reaction, Mild, HALLUCINATIONS, 08/06/13) Vitals & I&Os Vital Signs Date Time Temp Pulse Resp B/P (MAP) Pulse Ox O2 Delivery O2 Flow Rate FiO2 02/16/18 08:00 98.2 69 16 125/71 (89) 94 Room Air 02/14/18 16:18 0.50 02/13/18 09:55 28 General Appearance: No Apparent Distress, WD/WN, Chronically ill Respiratory: Chest Non Tender, Lungs Clear, Normal Breath Sounds, No Accessory Muscle Use, No Respiratory Distress, Decreased Breath Sounds (bases) Cardiovascular: Regular Rate, Rhythm, No Edema, No Gallop, No JVD, No Murmur, Normal Peripheral Pulses Neurologic/Psychiatric: Alert, Oriented x3, No Motor/Sensory Deficits, Normal Mood/Affect Hospital Course Hospital course: Patient had a lengthy hospital course after being found unresponsive at home with hypoxia and dysphagia from cervical spine surgery after discharge the day before from [facility] and was placed on aspiration pneumonia protocol. Dr. Blackwell was consulted and reviewed results and changed antibiotic to Zosyn for additional coverage of aspiration products. She actually did very well found to have used a lot of pain pills at home that likely was a contributing factor to the admission diagnosis and at day of discharge she was much improved and family approved and agreed for discharge. She will have a close follow-up at [facility] she'll have additional 5 days of antibiotic and thickener will be prescribed at discharge for dysphasia and tell esophagus has returned back to normal function. Labs (last 24 hrs) Laboratory Tests 02/15/18 11:24: Glucometer 165H 02/15/18 14:01: Glucometer 85 02/15/18 16:18: Glucometer 290H 02/15/18 20:52: Glucometer 285H 02/16/18 00:53: Glucometer 123H 02/16/18 06:03: Glucometer 115H Patient resulted labs reviewed. Pending Labs Laboratory Tests 02/16/18 06:03: Glucometer 115 Discussion & Recommendations Discharge Planning: <30 minutes discharge planning Discharge Home Medications: Active Scripts Active Thicken Up Clear Powder Packet (Maltodextrin/Xanthan Gum) 1 Each Powd.pack 1 Each PO 5XD Augmentin 875-125 Tablet (Amoxicillin/Potassium Clav) 1 Each Tablet 1 Each PO BID Mucinex (Guaifenesin) 600 Mg Tab.er.12h 600 Mg PO BID Reported Vytorin 10-40 mg Tablet (Ezetimibe/Simvastatin) 1 Each Tablet 1 Tab PO DAILY Vitamin E (Vitamin E Acetate) 400 Unit Capsule 400 Unit PO 1700 C-1000 (Ascorbic Acid) 1,000 Mg Tablet 1,000 Mg PO 1700 Calcium 1,000 + D3 Caplet (Calcium Carbonate/Vitamin D3) 1 Each Tablet 1 Tab PO BID Cvs Lutein 40 mg Softgel (Lutein/Zeaxanthin) 1 Each Capsule 1 Cap PO DAILY Centrum Silver Tablet (Multivit-Min/FA/Lycopene/Lut) 1 Each Tablet 1 Tab PO DAILY Aspirin EC (Aspirin) 81 Mg Tablet.dr 81 Mg PO DAILY Co Q-10 100 mg Softgel (Ubidecarenone/Vit E Acetate) 1 Each Capsule 100 Mg PO DAILY Garlic 1,000 Mg Capsule 1,000 Mg PO DAILY Vitamin B Complex 1 Each Tablet 1 Tab PO DAILY Betamethasone Dp Aug 0.05% Crm (Betamethasone/Propylene Glyc) 15 Gm Cream..g. TOP BID PRN Metformin HCl 1,000 Mg Tablet 1,000 Mg PO BID Citalopram HBr (Citalopram Hydrobromide) 20 Mg Tablet 20 Mg PO DAILY Levemir Flextouch (Insulin Detemir) 100 Unit/1 Ml Insuln.pen 25 Units SC BID Gabapentin 300 Mg Capsule 600 Mg PO DAILY TAKES 2 (300MG) CAPSULES Hydrochlorothiazide 50 Mg Tablet 50 Mg PO DAILY Amitriptyline HCl 150 Mg Tablet 150 Mg PO HS Atenolol 100 Mg Tablet 100 Mg PO HS Amlodipine Besylate 5 Mg Tablet 5 Mg PO BID Baclofen 10 Mg Tablet 10 Mg PO TID PRN Oxycodone-Acetaminophen 5-325 (Oxycodone HCl/Acetaminophen) 1 Each Tablet 1 Tab PO Q4H Gabapentin 300 Mg Capsule 300 Mg PO HS Instructions to patient/family Please see electronic discharge instructions given to patient. Clinical Quality Measures DVT/VTE Risk/Contraindication: Risk Factor Score Per Nursin RFS Level Per Nursing on Admit: 4+=Very High Problem Qualifiers (1) Overdose of medication: Encounter type: initial encounter Injury intent: accidental or unintentional Qualified Codes: T50.901A - Poisoning by unspecified drugs, medicaments and biological substances, accidental (unintentional), initial encounter (2) Pneumonia: Pneumonia type: aspiration pneumonia Aspiration pneumonia type: unspecified Laterality: right Lung location: lower lobe of lung Qualified Codes: J69.0 - Pneumonitis due to inhalation of food and vomit (3) Hypertension: Hypertension type: essential hypertension Qualified Codes: I10 - Essential ( primary) hypertension (4) Diabetes mellitus: Diabetes mellitus type: type 2 Diabetes mellitus intermediate project manager insulin use: without intermediate project manager use Diabetes mellitus complication status: without complication Qualified Codes: E11.9 - Type 2 diabetes mellitus without complications (5) Constipation: Constipation type: slow transit constipation Qualified Codes: K59.01 - Slow transit constipation (6) Dysphagia: Dysphagia type: oropharyngeal phase Qualified Codes: R13.12 - Dysphagia, oropharyngeal phase (7) Aspiration into airway: Encounter type: initial encounter Qualified Codes: T17.908A - Unspecified foreign body in respiratory tract, part unspecified causing other injury, initial encounter CHACE NGUYEN DO Feb 16, 2018 10:09
[2018-02-16] MEDS ORDERED: AUGMENTIN 875 MG TAB (AMOXICILLIN/CLAVULANATE) PO NR (10:22)
[2018-02-16 12:45] VITALS: BP 125/71
== END 2018-02-16 12:45 | disposition home or self-care (01) | DRG 917 ==
LOC: EDUNIT# 03:38 → ER 03:39 → 4TH 05:15
PROVIDERS: ADMIT Internal Medicine; ATTEND Internal Medicine
DX: T40.2X1A Poisoning by other opioids, accidental (unintentional), initial encounter (principal); R41.82 Altered mental status, unspecified; R09.02 Hypoxemia; J69.0 Pneumonitis due to inhalation of food and vomit; B37.0 Candidal stomatitis; J98.11 Atelectasis; T17.908A Unspecified foreign body in respiratory tract, part unspecified causing other injury, initial encounter; R13.12 Dysphagia, oropharyngeal phase; E11.40 Type 2 diabetes mellitus with diabetic neuropathy, unspecified; I10 Essential (primary) hypertension; E78.00 Pure hypercholesterolemia, unspecified; K59.01 Slow transit constipation; E87.8 Other disorders of electrolyte and fluid balance, not elsewhere classified; E87.6 Hypokalemia; G43.909 Migraine, unspecified, not intractable, without status migrainosus; J30.2 Other seasonal allergic rhinitis; F41.9 Anxiety disorder, unspecified; M19.91 Primary osteoarthritis, unspecified site; Z79.4 Long term (current) use of insulin; Z98.890 Other specified postprocedural states; Z98.1 Arthrodesis status; Z86.19 Personal history of other infectious and parasitic diseases
CPT/HCPCS: 36415; 71045; 71275; 80048; 80053; 80306; 80320; 80329; 81000; 82962; 85025; 86141; 93970; 94640; 94664; 94760; 96361; 96365

== ENCOUNTER 2018-03-17 13:00 | Outpatient (CLI) | payer MEDICARE, OTHER ==
[~2018-03-17 13:00] MED LIST changes: +AMIT150T PO; +AMLO5TAB7 PO; +AMOX-358 PO; +ASCO-281 PO; +ASPI-983 PO; +ATEN100T PO; +BACL10TA PO; +BETA15CR37 TOP; +CITA20TA9 PO; +DICL50TA6 PO; +EZET1TAB21 PO; +GABA-488 PO; +GARL10002 PO; +GUAI600T43 PO; +INSU100I29 SC; +LUTE1CAP3 PO; +METF-399 PO; +OMEG-77 PO; +OXYC-471 PO; +POLY17PO6 PO; +STAR1POW PO; +UBID1CAP53 PO; +VITA1TAB17 PO; +VITA400C60 PO
== END 2018-03-17 13:30 | disposition home or self-care (01) ==
LOC: SLEEP 13:00
PROVIDERS: ATTEND Nurse Practitioner Family
DX: G47.10 Hypersomnia, unspecified (principal)

== ENCOUNTER → 2018-03-25 | Outpatient (CLI) | payer MEDICARE, OTHER ==
[~2018-03-25] MED LIST changes: +RT-ALBUTEROL SULF 2.5 MG/3 ML PRE-MIX VIAL INH ONE; +RT-ALBUTEROL SULF 2.5 MG/3 ML PRE-MIX VIAL ONE
--- NOTE | 2018-03-25 15:22 | Diagnostic Imaging Report ---
PROCEDURE: CT chest without contrast. TECHNIQUE: Multiple contiguous axial images were obtained through the chest without the use of intravenous contrast. INDICATION: Dyspnea and pneumonia as well as seasonal bronchitis. COMPARISON: Comparison is made with prior CT of the chest from 02/13/2018. FINDINGS: No axillary lymphadenopathy is seen. Hilar and mediastinal evaluation is limited without intravenous contrast. No gross abnormality is detected. No pericardial or pleural fluid is identified. There has been interval clearing of bibasal infiltrates/atelectasis since prior CT. No new parenchymal abnormality is identified. The upper abdomen is unremarkable. IMPRESSION: Resolution of previously noted bilateral lower lobe infiltrate/atelectasis. No new abnormality is seen. Dictated by: Dictated on workstation # [id number]
== END ==
LOC: RAD 14:19
PROVIDERS: ATTEND Nurse Practitioner Family
DX: J18.9 Pneumonia, unspecified organism (principal); J40 Bronchitis, not specified as acute or chronic; J30.2 Other seasonal allergic rhinitis
CPT/HCPCS: 71250; 94060; 94726; 94729

== ENCOUNTER 2018-05-01 19:45 | Outpatient (CLI) | payer MEDICARE, OTHER ==
[~2018-05-01 19:45] MED LIST changes: -RT-ALBUTEROL SULF 2.5 MG/3 ML PRE-MIX VIAL INH ONE; -RT-ALBUTEROL SULF 2.5 MG/3 ML PRE-MIX VIAL ONE
== END 2018-05-02 06:15 | disposition home or self-care (01) ==
LOC: SLEEP 19:45
PROVIDERS: ATTEND Nurse Practitioner Family
DX: G47.33 Obstructive sleep apnea (adult) (pediatric) (principal)
CPT/HCPCS: 95811

== ENCOUNTER → 2019-04-01 | Outpatient (CLI) | payer MEDICARE, OTHER ==
[~2019-04-01] MED LIST changes: -AMLO5TAB7 PO; +AMLO5TAB9 PO; +HOLD METFORMIN - RECEIVED CONTRAST 20 ML VIAL IV SCH; +IOHEXOL 350 MG/ML 100 ML (OMNIPAQUE 350) VIAL IV ONE; +NS 100 ML (IVPB) BAG IV ONE
[2019-04-01 09:01] LABS: BUN/CREATININE RATIO 14; CREATININE SERUM 0.77 MG/DL (0.60-1.30); GFR ESTIMATED > 60
--- NOTE | 2019-04-01 09:42 | Diagnostic Imaging Report ---
PROCEDURE: CT chest with contrast only. TECHNIQUE: Multiple contiguous axial images were obtained through the chest after administration of intravenous contrast. Auto Exposure Controls were utilized during the CT exam to meet ALARA standards for radiation dose reduction. INDICATION: Cough and dyspnea and family history of lung cancer Comparison is made to study of 03/25/2018. Overall, there has been no significant change compared to previous study. Calcification in the right lower lobe likely represents residual from previous granulomatous exposure. There is an approximately 0.5 cm pleural-based nodule along the mid to upper left major fissure. This is not significantly changed. There is no evidence of new dominant mass or focal infiltrate. There is no significant pleural or pericardial fluid. No pathologic adenopathy is identified. IMPRESSION: Stable CT scan of the thorax without evidence of acute abnormality or significant adverse change. Dictated by: Dictated on workstation # [id number]
== END ==
LOC: RAD 08:32
PROVIDERS: ATTEND Nurse Practitioner Family
DX: J30.2 Other seasonal allergic rhinitis (principal); J40 Bronchitis, not specified as acute or chronic; G47.33 Obstructive sleep apnea (adult) (pediatric); Z80.1 Family history of malignant neoplasm of trachea, bronchus and lung
CPT/HCPCS: 36415; 71260; 82565; 84520

== ENCOUNTER → 2020-05-02 | Outpatient (CLI) | payer MEDICARE, OTHER ==
[~2020-05-02] MED LIST changes: +AMLO-250 PO; -AMLO5TAB9 PO; +ASPI-1238 PO; -ASPI-983 PO; +BETA15CR14 TOP; -BETA15CR37 TOP; -HOLD METFORMIN - RECEIVED CONTRAST 20 ML VIAL IV SCH; -IOHEXOL 350 MG/ML 100 ML (OMNIPAQUE 350) VIAL IV ONE; -NS 100 ML (IVPB) BAG IV ONE
--- NOTE | 2020-05-02 21:00 | Diagnostic Imaging Report ---
EXAM: Digital mammogram, bilateral screening. COMPARISON: This study was compared to the prior exams of 05/27/2012. At this time there are no current complaints. The fibroglandular tissue in both breasts is heterogeneously dense. This does limit the sensitivity of this exam. On the MLO view of the left breast in the superior aspect of the breast approximately 5 cm from the nipple. There is a 5 mm asymmetry. There is no corresponding abnormality identified with certainty on the craniocaudad view and this finding may merely be secondary to superimposition of the fibroglandular tissue. However, this area does not clearly resolve on the tomographic images in the MLO projection. I would recommend that a compression view of this area be obtained in the MLO projection as well as a true lateral view for further study. Rolled views in the CC projection should also be performed. Ultrasound would be recommended as well. There is no evidence for malignancy involving the right breast. A number of benign-appearing calcifications have developed in both breasts since the prior study. IMPRESSION: Additional mammographic views and ultrasound of the left breast would be recommended for further study. ACR category 0 ACR BI-RADS Category 0: Incomplete. (Needs additional imaging evaluation). Result letter will be mailed to the patient. Note: At least 10% of breast cancer is not imaged by mammography. Dictated by: Dictated on workstation # [id number]
== END ==
LOC: RAD 11:10
PROVIDERS: ATTEND Nurse Practitioner Family
DX: Z12.31 Encounter for screening mammogram for malignant neoplasm of breast (principal)
CPT/HCPCS: 77063; 77067

== ENCOUNTER → 2020-05-24 | Outpatient (CLI) | payer MEDICARE, OTHER ==
--- NOTE | 2020-05-24 16:27 | Diagnostic Imaging Report ---
INDICATION: Left breast density. COMPARISON: 05/02/2020. TECHNIQUE: Unilateral left 2D and 3D diagnostic mammography was performed with CAD. This included spot compression CC and ML views as well as rolled CC and conventional 90 degree lateral views. FINDINGS: The additional views fail to demonstrate a discrete mass. The area of density in the upper left breast on the MLO view most likely represents superimposed tissue. No mass is seen. There are benign calcifications. IMPRESSION: Additional views fail to demonstrate a discrete mass. The patient may return to routine annual screening mammography. ACR BI-RADS Category 2: Benign findings. Result letter will be mailed to the patient. Note: At least 10% of breast cancer is not imaged by mammography. Dictated by: Dictated on workstation # [id number]
== END ==
LOC: RAD 14:15
PROVIDERS: ATTEND Nurse Practitioner Family
DX: R92.2 Inconclusive mammogram (principal); R92.8 Other abnormal and inconclusive findings on diagnostic imaging of breast
CPT/HCPCS: 77065; G0279

== ENCOUNTER 2022-08-26 19:57 | Emergency (ER) | payer MEDICARE, OTHER ==
[~2022-08-26] VITALS: Ht 160 cm; Wt 55.8 kg
[~2022-08-26 19:57] MED LIST changes: +EZET-81 PO; -EZET1TAB21 PO; +HYDR50TA6 PO; -INSU100I29 SC; +INSU100I30 SC; -OXYC-471 PO; +OXYC1TAB11 PO
--- NOTE | 2022-08-26 20:08 | ED Abdominal Pain ---
General Stated Complaint: WEAKNESS Source of Information: Patient Exam Limitations: No Limitations History of Present Illness Date Seen by Provider: August 26, 2022 Time Seen by Provider: 20:06 Initial Comments Patient is a 72-year-old female who presents to ED with generalized weakness, fatigue, vomiting, diarrhea, burning in the chest. Symptoms started around 4 PM. She reports 6-7+ episodes of nonbilious vomiting without hematemesis. 5-6 episodes of watery diarrhea without any hematochezia or mucousy stool. Generalized abdominal discomfort. She reports a burning sensation in her upper chest and lower chest. Pain in her upper abdomen. Dull achy pain. No history of previous abdominal surgery. Denies history of coronary artery disease, COPD. Normal urination. Denies headache, dizziness, visual changes, sore throat, cough or shortness of breath. Denies taking medication. Patient denies dysuria, hematuria, unilateral weakness Allergies and Home Medications Allergies Coded Allergies: glipizide (Unverified Allergy, Unknown, DOESN'T REMEMBER REACTION, ) acetaminophen (Unverified Adverse Reaction, Mild, HALLUCINATIONS, 08/06/13) butorphanol (Unverified Adverse Reaction, Mild, HALLUCINATIONS, 08/06/13) oxycodone (Unverified Adverse Reaction, Mild, HALLUCINATIONS, 08/06/13) Patient Home Medication List Home Medication List Reviewed: Yes Amitriptyline HCl (Amitriptyline HCl) 150 Mg Tablet, 150 MG PO HS, (Reported) Entered as Reported by: JESS VASQUEZ on 02/13/18929 Amlodipine Besylate (Amlodipine Besylate) 5 Mg Tablet, 5 MG PO BID, (Reported) Entered as Reported by: JESS VASQUEZ on 02/13/18929 Amoxicillin/Potassium Clav (Augmentin 875-125 Tablet) 1 Each Tablet, 1 EACH PO BID Prescribed by: CHACE NGUYEN on 02/16/181006 Aspirin (Aspirin EC) 81 Mg Tablet.dr, 81 MG PO DAILY, (Reported) Entered as Reported by: JESS VASQUEZ on 02/13/18933 Atenolol (Atenolol) 100 Mg Tablet, 100 MG PO HS, (Reported) Entered as Reported by: JESS VASQUEZ on 02/13/18929 Baclofen (Baclofen) 10 Mg Tablet, 10 MG PO TID PRN for MUSCLE SPASMS, (Reported) Entered as Reported by: JESS VASQUEZ on 02/13/18929 Betamethasone/Propylene Glyc (Betamethasone Dp Aug 0.05% Crm) 15 Gm Cream..g., TOP BID PRN for SKIN, (Reported) Entered as Reported by: JESS VASQUEZ on 02/13/18929 Citalopram Hydrobromide (Citalopram HBr) 20 Mg Tablet, 20 MG PO DAILY, (Reported) Entered as Reported by: JESS VASQUEZ on 02/13/18929 Ezetimibe/Simvastatin (Vytorin 10-40 mg Tablet) 1 Each Tablet, 1 TAB PO DAILY, (Reported) Entered as Reported by: JESS VASQUEZ on 02/13/18 100 Gabapentin (Gabapentin) 300 Mg Capsule, 300 MG PO HS, (Reported) Entered as Reported by: JESS VASQUEZ on 02/13/18929 Gabapentin (Gabapentin) 300 Mg Capsule, 600 MG PO DAILY, (Reported) Entered as Reported by: JESS VASQUEZ on 02/13/18929 Guaifenesin (Mucinex) 600 Mg Tab.er.12h, 600 MG PO BID Prescribed by: CHACE NGUYEN on 02/16/18 1007 Insulin Detemir (Levemir Flextouch) 100 Unit/1 Ml Insuln.pen, 25 UNITS SC BID, (Reported) Entered as Reported by: JESS VASQUEZ on 02/13/18929 Maltodextrin/Xanthan Gum (Thicken Up Clear Powder Packet) 1 Each Powd.pack, 1 EACH PO 5XD Prescribed by: CHACE NGUYEN on 02/16/18 1008 Oxycodone HCl/Acetaminophen (Oxycodone-Acetaminophen 5-325) 1 Each Tablet, 1 TAB PO Q4H, (Reported) Entered as Reported by: JESS VASQUEZ on 02/13/18929 Review of Systems Review of Systems Constitutional: No chills, No diaphoresis, No fever; malaise, weakness EENTM: No Double Vision, No Eye Pain Respiratory: Denies Cough, Denies Shortness of Air Cardiovascular: Chest Pain Gastrointestinal: Abdominal Pain, Diarrhea, Nausea, Vomiting Genitourinary: Denies Burning, Denies Discharge Musculoskeletal: No back pain, No joint pain Skin: No change in color, No change in hair/nails All Other Systems Reviewed Negative Unless Noted: Yes Past Ygwzuge-Fsmtlc-Ygjomi Hx Seasonal Allergies Seasonal Allergies: Yes Past Medical History Surgeries: Yes (D&C, BILATERAL ELBOWS, BILATERAL CARPAL TUNNEL, R ANKLE FX /) Adenoidectomy, Hysterectomy, Oophorectomy, Orthopedic, Tonsillectomy Respiratory: No Cardiac: Yes High Cholesterol, Hypertension Neurological: Yes Headaches /Migraines, Neuropathy [employer]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 ORTHO SURGERIES) Arthritis Endocrine: Yes Diabetes, Insulin dep Cancer: No Psychosocial: Yes Anxiety Integumentary: No Blood Disorders: Yes (RMSF, TICK FEVER) Physical Exam Vital Signs Vital Signs - First Documented 08/26/22 19:58 Temp 36.2 Pulse 65 Resp 18 B/P (MAP) 175/74 (107) Pulse Ox 97 O2 Delivery Room Air Capillary Refill : Height/Weight/BMI Height: 5'3.00" Weight: 123lbs. 12.8oz. 56.124320oz; 21.9 BMI Method:Stated General Appearance: WD/WN, no apparent distress HEENT: PERRL/EOMI, normal ENT inspection, TMs normal, pharynx normal Neck: non-tender, full range of motion, supple Respiratory: chest non-tender, lungs clear, normal breath sounds, no respiratory distress, no accessory muscle use Cardiovascular: regular rate, rhythm, no edema, no gallop, no JVD Gastrointestinal: normal bowel sounds, non tender, no organomegaly, no pulsatile mass, tenderness (Epigastric tenderness) Extremities: normal range of motion, non-tender, normal inspection, no pedal edema Back: normal inspection, no CVA tenderness, no vertebral tenderness 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, no motor/sensory deficits, alert, normal mood/affect, oriented x 3 Skin: normal color, warm/dry Progress/Results/Core Measures Results/Orders Lab Results Laboratory Tests Test 08/26/22 20:01 08/26/22 20:04 08/26/22 21:40 Range/Units White Blood Count 9.3 4.3-11.0 10^3/uL Red Blood Count 5.22 H 3.80-5.11 10^6/uL Hemoglobin 15.7 11.5-16.0 g/dL Hematocrit 46 35-52 % Mean Corpuscular Volume 89 80-99 fL Mean Corpuscular Hemoglobin 30 25-34 pg Mean Corpuscular Hemoglobin Concent 34 32-36 g/dL Red Cell Distribution Width 12.6 10.0-14.5 % Platelet Count 236 130-400 10^3/uL Mean Platelet Volume 8.5 L 9.0-12.2 fL Immature Granulocyte % (Auto) 0 % Neutrophils (%) (Auto) 85 H 42-75 % Lymphocytes (%) (Auto) 9 L 12-44 % Monocytes (%) (Auto) 4 0-12 % Eosinophils (%) (Auto) 2 0-10 % Basophils (%) (Auto) 1 0-10 % Neutrophils # (Auto) 7.8 1.8-7.8 10^3/uL Lymphocytes # (Auto) 0.8 L 1.0-4.0 10^3/uL Monocytes # (Auto) 0.3 0.0-1.0 10^3/uL Eosinophils # (Auto) 0.2 0.0-0.3 10^3/uL Basophils # (Auto) 0.1 0.0-0.1 10^3/uL Immature Granulocyte # (Auto) 0.0 0.0-0.1 10^3/uL Prothrombin Time 12.0 L 12.2-14.7 SEC INR Comment 0.8 0.8-1.4 Activated Partial Thromboplast Time 26 24-35 SEC Sodium Level 133 L 135-145 MMOL/L Potassium Level 3.7 3.6-5.0 MMOL/L Chloride Level 95 L 98-107 MMOL/L Carbon Dioxide Level 25 21-32 MMOL/L Anion Gap 13 5-14 MMOL/L Blood Urea Nitrogen 19 H 7-18 MG/DL Creatinine 0.78 0.60-1.30 MG/DL Estimat Glomerular Filtration Rate 80 BUN/Creatinine Ratio 24 Glucose Level 108 H 70-105 MG/DL Calcium Level 10.6 H 8.5-10.1 MG/DL Corrected Calcium 10.2 H 8.5-10.1 MG/DL Magnesium Level 2.1 1.6-2.4 MG/DL Total Bilirubin 0.4 0.1-1.0 MG/DL Aspartate Amino Transf (AST/SGOT) 33 5-34 U/L Alanine Aminotransferase (ALT/SGPT) 52 0-55 U/L Alkaline Phosphatase 78 40-136 U/L Myoglobin 40.3 10.0-92.0 NG/ML Troponin I < 0.028 <0.028 NG/ML Total Protein 7.2 6.4-8.2 GM/DL Albumin 4.5 3.2-4.5 GM/DL Lipase 24 8-78 U/L Beta-Hydroxybutyrate (Chem panel) 0.42 H 0.00-0.27 MMOL/L Glucometer 113 H 70-110 MG/DL Urine Color YELLOW Urine Clarity CLEAR Urine pH 7.5 5-9 Urine Specific [place] 1.010 L 1.016-1.022 Urine Protein NEGATIVE NEGATIVE Urine Glucose (UA) 2+ H NEGATIVE Urine Ketones NEGATIVE NEGATIVE Urine Nitrite NEGATIVE NEGATIVE Urine Bilirubin NEGATIVE NEGATIVE Urine Urobilinogen 0.2 < = 1.0 MG/DL Urine Leukocyte Esterase NEGATIVE NEGATIVE Urine RBC (Auto) NEGATIVE NEGATIVE Urine RBC NONE /HPF Urine WBC NONE /HPF Urine Crystals NONE /LPF Urine Bacteria NEGATIVE /HPF Urine Casts NONE /LPF Urine Mucus NEGATIVE /LPF Urine Culture Indicated NO My Orders Orders - SACHI HARPER PA Cbc With Automated Diff (08/26/22 20:03) Magnesium (08/26/22 20:03) Chest 1 View, Ap/Pa Only (08/26/22 20:03) Ekg Tracing (08/26/22 20:03) Comprehensive Metabolic Panel (08/26/22 20:03) Myoglobin Serum (08/26/22 20:03) Protime With Inr (08/26/22 20:03) Partial Thromboplastin Time (08/26/22 20:03) Monitor-Rhythm Ecg Trace Only (08/26/22 20:03) Ed Iv/Invasive Line Start (08/26/22 20:03) Lipase (08/26/22 20:03) Troponin I Akshat (08/26/22 20:03) Ct Abdomen/Pelvis W (08/26/22 20:03) Ondansetron Injection (Zofran Injectio (08/26/22 20:15) Beta Hydroxybutyrate (08/26/22 20:03) Ua Culture If Indicated (08/26/22 20:05) Ns Iv 1000 Ml (Sodium Chloride 0.9%) (08/26/22 20:33) Ketorolac Injection (Toradol Injection) (08/26/22 21:00) Iohexol Injection (Omnipaque 350 Mg/Ml 1 (08/26/22 21:00) Ns (Ivpb) (Sodium Chloride 0.9% Ivpb Bag (08/26/22 21:00) Rx-Ondansetron Po (Rx-Zofran Po) (08/26/22 22:00) Medications Given in ED Current Medications Medications Dose Ordered Sig/Elian Route Start Time Stop Time Status Last Admin Dose Admin Iohexol 100 ml ONCE ONCE IV 08/26/22 21:00 08/26/22 21:01 DC 08/26/22 21:07 64 ML Ketorolac Tromethamine 30 mg ONCE ONCE IVP 08/26/22 21:00 08/26/22 21:01 DC 08/26/22 21:18 30 MG Ondansetron HCl 4 mg ONCE ONCE IVP 08/26/22 20:15 08/26/22 20:16 DC 08/26/22 20:13 4 MG Sodium Chloride 100 ml ONCE ONCE IV 08/26/22 21:00 08/26/22 21:01 DC 08/26/22 21:07 80 ML Vital Signs/I&O 08/26/22 19:58 Temp 36.2 Pulse 65 Resp 18 B/P (MAP) 175/74 (107) Pulse Ox 97 O2 Delivery Room Air Comment Sinus rhythm, 63 bpm, QRS duration 114 MS, QTc 432 MS Departure Communication (PCP) Patient is a 72-year-old female presents ED with vomiting diarrhea. Symptoms started around 4 PM. Burning in her chest. No known cardiac history according to patient. No history of COPD. Denies of any previous abdominal surgery. Patient vital signs stable. Afebrile. She was not tachycardic. Slightly hypertensive. CBC, CMP, lipase, cardiac work-up secondary to burning in the chest. EKG showed normal sinus rhythm without evidence of ST elevation, depression or ischemic changes. Chest x-ray negative for pneumonia, pneumothorax, cardiomegaly, pleural effusion. The patient with episode of vomiting here. Received IV Zofran 4 mg. Started on a liter of fluid. Urinalysis was negative for UTI. CBC, CMP was grossly unremarkable besides sodium 133, chloride 97. Slightly dehydrated. Blood sugar 113. Normal liver function and kidney function. CT abdomen pelvis for the diarrhea and vomiting was negative for any acute abnormality. Patient received Toradol she started developing head pain here. No focal neural deficits. Improvement of her symptoms. Tolerating p.o. fluids at bedside. Denies eaten anything different today. No recent travels. No recent antibiotic use. Potentially more viral related. Will discharge with Zofran take-home pack. If any worsening symptoms return back to ED. Patient and family agree with plan of action Impression Primary Impression: Vomiting and diarrhea Disposition: 01 HOME, SELF-CARE Condition: Stable Departure-Patient Inst. Decision time for Depature: 22:07 Referrals: VASQUEZ PAZ MD (PCP) Primary Care Physician [facility]MANDIE (Family) Primary Care Physician Patient Instructions: Nausea and Vomiting, Adult ED Add. Discharge Instructions: Take Zofran for nausea. Tylenol or ibuprofen for pain or fever. If any worsening symptoms return back to ED. Recommend staying hydrated. Pedialyte and electrolytes. Follow-up with PCP in 3 to 4 days for reevaluation. Suspect more of a viral process at this time. SACHI HARPER August 26, 2022 20:08
[2022-08-26 20:13] LABS: BASOPHILS # (AUTO) 0.1 10^3/uL (0.0-0.1); BASOPHILS % (AUTO) 1 % (0-10); EOSINOPHILS # (AUTO) 0.2 10^3/uL (0.0-0.3); EOSINOPHILS % (AUTO) 2 % (0-10); HEMATOCRIT 46 % (35-52); HEMOGLOBIN 15.7 g/dL (11.5-16.0); LYMPHOCYTES # (AUTO) 0.8 10^3/uL (1.0-4.0); LYMPHOCYTES % (AUTO) 9 % (12-44); MEAN CORPUSCULAR HEMOGLOBIN 30 pg (25-34); MEAN CORPUSCULAR HGB CONC 34 g/dL (32-36); MEAN CORPUSCULAR VOLUME 89 fL (80-99); MEAN PLATELET VOLUME 8.5 fL (9.0-12.2); MONOCYTES # (AUTO) 0.3 10^3/uL (0.0-1.0); MONOCYTES % (AUTO) 4 % (0-12); NEUTROPHILS # (AUTO) 7.8 10^3/uL (1.8-7.8); NEUTROPHILS % (AUTO) 85 % (42-75); PLATELET COUNT 236 10^3/uL (130-400); WHITE BLOOD COUNT 9.3 10^3/uL (4.3-11.0)
[2022-08-26] MEDS ORDERED: ONDANSETRON 4 MG/2 ML (SDV) Z0FRAN IVP ONE (20:15)
[2022-08-26 20:30] LABS: INR 0.8 (0.8-1.4)
[2022-08-26] MEDS ORDERED: NS IV 1000 ML 1,000 ML IV STA (20:33)
--- NOTE | 2022-08-26 20:38 | Diagnostic Imaging Report ---
INDICATION: Chest pain. COMPARISON: 02/16/2018. FINDINGS: The lungs appear clear without focal airspace opacities or consolidation. There are no findings of an effusion. There is no evidence of a pneumothorax. Heart size and mediastinal contours appear appropriate. Pulmonary vascularity appears within normal limits. There is no acute or suspicious osseous abnormality demonstrated. IMPRESSION: No radiographic evidence of an acute cardiopulmonary process. Dictated by: Dictated on workstation # [id number]
[2022-08-26 20:42] LABS: ALBUMIN 4.5 GM/DL (3.2-4.5); BILIRUBIN,TOTAL 0.4 MG/DL (0.1-1.0); CALCIUM 10.6 MG/DL (8.5-10.1); CREATININE SERUM 0.78 MG/DL (0.60-1.30); MAGNESIUM 2.1 MG/DL (1.6-2.4); POTASSIUM 3.7 MMOL/L (3.6-5.0); TOTAL PROTEIN 7.2 GM/DL (6.4-8.2)
[2022-08-26] MEDS ORDERED: NS 100 ML (IVPB) BAG IV ONE (21:00)
[2022-08-26] MEDS ORDERED: KETOROLAC 30 MG/ML VIAL IVP ONE (21:00)
[2022-08-26] MEDS ORDERED: IOHEXOL 350 MG/ML 100 ML (OMNIPAQUE 350) VIAL IV ONE (21:00)
--- NOTE | 2022-08-26 21:28 | Diagnostic Imaging Report ---
PROCEDURE: CT abdomen and pelvis with contrast. TECHNIQUE: Multiple contiguous axial images were obtained through the abdomen and pelvis after administration of intravenous contrast. Auto Exposure Controls were utilized during the CT exam to meet ALARA standards for radiation dose reduction. All CT scans use one or more of the following dose optimizing techniques: automated exposure control, MA and/or KvP adjustment based on patient size and exam type or iterative reconstruction. INDICATION: Upper abdominal pain. Nausea and vomiting. Weakness and dizziness. COMPARISON: No prior comparison of the abdomen and pelvis available. FINDINGS: The lung bases demonstrate minimal dependent atelectasis. There is a right lower lobe granuloma. There is no pneumonia or edema. There is no effusion or pericardial collection. Liver demonstrates no focal intrahepatic abnormality. The gallbladder is nondistended. There is no radiodense stone. The hepatic and portal veins are patent. There is a subtle suggestion there may be some very slight prominence of the intrahepatic bile ducts. The common bile duct measures 8.5 mm in diameter. There is no stone evident within the common bile duct. The pancreas is normal. There appears to be a duodenal diverticulum. The spleen is normal. There is no adrenal mass. The kidneys enhance normally and are nonobstructed. The stomach is nondistended. There are no findings of abnormal small or large bowel dilation. There is no focal abnormal bowel thickening. There is no pericolonic fat stranding. There are no findings of free air, free fluid or abscess. The urinary bladder is unremarkable. The patient is status post hysterectomy. The aorta demonstrates atherosclerosis but is normal in caliber. There are prior operative changes of posterior lumbar interbody fusions of L3-L4 and L4-L5. There is developing adjacent level disease above the fusion at the L2-L3 level. IMPRESSION: 1. Very subtle prominence of the intrahepatic bile ducts. The common bile duct is normal in caliber for age. There is no gallbladder distention or gallbladder wall thickening and no evidence of a radiodense gallstone. Consider correlation with LFTs. 2. No findings of right hydronephrosis. 3. No evidence of bowel obstruction or abnormal bowel thickening. 4. No free air, free fluid, abscess or adenopathy. 5. Operative changes of prior spinal fusion with developing adjacent level degenerative features above the fusion at L2-L3. Dictated by: Dictated on workstation # [id number]
[2022-08-26 21:55] LABS: BILIRUBIN,URINE NEGATIVE (NEGATIVE); CLARITY,URINE CLEAR; COLOR,URINE YELLOW; GLUCOSE, URINE (UA) 2+ (NEGATIVE); KETONES,URINE NEGATIVE (NEGATIVE); LEUKOCYTE ESTERASE ,URINE NEGATIVE (NEGATIVE); NITRITE,URINE NEGATIVE (NEGATIVE); PH,URINE 7.5 (5-9); PROTEIN,URINE NEGATIVE (NEGATIVE)
[2022-08-26] MEDS ORDERED: RX-ONDANSETRON 4 MG ODT (ZOFRAN) PPK #4 PO ONE (22:00)
[2022-08-26 22:01] LABS: BACTERIA,URINE NEGATIVE /HPF
[2022-08-26 22:20] VITALS: BP 131/72
== END 2022-08-26 22:20 | disposition home or self-care (01) ==
LOC: ER 19:57 → EDUNIT# 19:57 → ER 22:20
DX: R11.2 Nausea with vomiting, unspecified (principal); R19.7 Diarrhea, unspecified; R51.9 Headache, unspecified; R10.84 Generalized abdominal pain
CPT/HCPCS: 36415; 71045; 74177; 80053; 81000; 82010; 82947; 83690; 83735; 83874; 84484; 85025; 85610; 85730; 93005; 93041